=== PATIENT | female | born 1960 | race Caucasian/White ===

== ENCOUNTER 2022-03-20 11:38 | Emergency (ER) | payer BC, SELFPAY ==
[2022-03-20 12:16] VITALS: BP 163/104; PULSE 71; RESP 18; TEMP 37.1; O2SAT 97; BMI 31.9
--- NOTE | 2022-03-20 13:08 | CRLHL7_ITS ---
For Patients: As a result of the Century Cures Act, medical imaging exams and procedure reports are released immediately into your electronic medical record. You may view this report before your referring provider. If you have questions, please contact your health care provider. INDICATION: Headache TECHNIQUE: CT head without contrast. COMPARISON: FINDINGS: CSF spaces: Within normal limits for age. Brain parenchyma: The stack-white differentiation is normal. No sign of mass, hemorrhage, or midline shift. Skull base and calvarium: The visualized paranasal sinuses and mastoid air cells demonstrate no acute or significant findings. The visualized orbits are grossly unremarkable. No skull fractures. IMPRESSION: Unremarkable noncontrast head CT. Dictated by Scotty Marquez MD @ 03/20/2022 2:45:32 PM Please note that all CT scans at this facility use dose modulation, iterative reconstruction, and/or weight-based dosing when appropriate to reduce radiation dose to as low as reasonably achievable. Dictated by: Scotty Marquez MD @ 03/20/2022 14:45:43 (Electronically Signed)
--- NOTE | 2022-03-20 13:17 | ED.GENADULT ---
HPI - General Adult General Chief complaint: Headache/Migraine Stated complaint: Migraine/covid+ 2 weeks ago Time Seen by Provider: 03/20/22 12:35 History of Present Illness HPI narrative: 61-year-old female coming in today complaining of a headache. She states she has had a for just over 2 weeks now. She was diagnosed with COVID on the 05 of March, symptoms started on the 01 of March. She states she has had a headache for that long at least. Nothing seems to make it better. She states that she is sensitive to light and she has to lay in bed in the dark often. She has tried Tylenol, ibuprofen, Advil, Excedrin migraine and nothing helps. She denies any neurologic deficits. No nausea or vomiting. No changes in her vision or hearing. The pain is located on the left posterior head and radiates up and down the entire school also radiates down into her neck. She has never had a headache quite like this before. Does not have a history of migraines. She denies any slurred speech or confusion. No trauma to the head or neck. Temperature has been around 99 at home. Related Data Home Medications Medication Instructions Recorded Confirmed aspirin 81 mg tablet,delayed 81 mg PO tab 03/05/22 03/05/22 release atorvastatin 40 mg tablet 40 mg PO tab 03/05/22 03/05/22 citalopram 20 mg tablet 20 mg PO tab 03/05/22 03/05/22 fluorouracil 5 % topical cream applic TOPICAL 03/05/22 03/05/22 folic acid 1 mg tablet 5 mg PO tab 03/05/22 03/05/22 golimumab 50 mg/0.5 mL mg SUBCUT 03/05/22 03/05/22 subcutaneous pen injector (Simponi) losartan 50 mg tablet 50 mg PO tab 03/05/22 03/05/22 methotrexate sodium 2.5 mg tablet 2.5 mg PO tab 03/05/22 03/05/22 metoprolol tartrate 25 mg tablet 25 mg PO tab 03/05/22 03/05/22 Previous Rx's Medication Instructions Recorded nirmatrelvir 300 mg (150 mg x See Rx Instructions PO .COMPLEX 03/05/22 2)-ritonavir 100 mg tablet (EUA) #30 tab (Paxlovid 300 mg () ketorolac 10 mg tablet 10 mg PO TID PRN 3 Days #9 tab 03/20/22 Allergies Allergy/AdvReac Type Severity Reaction Status Date / Time Sulfa (Sulfonamide Allergy Intermediate Verified 03/20/22 12:15 Antibiotics) bupropion [From Wellbutrin] Allergy Verified 03/20/22 12:16 sertraline [From Zoloft] Allergy Verified 03/20/22 12:16 Review of Systems Status of ROS: Reports: 10 or more systems reviewed and unremarkable except as noted in History and below PFSH PFSH Medical History Hypolipidemia Psoriatic arthritis Social History Smoking Status: Never smoker Exam Narrative: Exam Narrative: Well-nourished well-developed patient in no acute distress. Alert and oriented. Answers questions appropriately. Mood and affect are appropriate. Thoughts are goal oriented and rational. No tangential or magical thinking noted. Patient speaks in full sentences without needing to catch their breath. HEENT: Normocephalic atraumatic. Pupils are equally round reactive to light. Extraocular muscles are intact. Conjunctivae are moist without any icterus noted. Moist mucous membranes. Posterior pharynx is normal. Neck is soft without any lymphadenopathy or thyromegaly. No masses are appreciated. She has no tenderness to palpation over the cervical spine. She has full range of motion of the neck was flexion, extension, side way bending and rotation. She can touch her chin to her chest. Cardiovascular: Heart is regular rate and rhythm S1 and S2 are present without any murmurs. Lungs: Clear to auscultation bilaterally no wheezes rhonchi or rales are appreciated. Patient takes deep breaths without any discomfort. Skin: Well perfused without any obvious rashes. Strength is 5/5 of the upper and lower extremities. Reflexes are 2+ and symmetric at the knees. Cranial nerves 3-12 are normal. There is no nystagmus either horizontally or vertically. Const: Vital Signs, click to edit/add: Vital Signs - 24 hr 03/20/22 12:16 Temperature 98.7 F Pulse Rate [Pulse Oximeter] 71 Respiratory Rate 18 Blood Pressure [Ri ght Forearm] 163/104 H Pulse Oximetry 97 Course Course Hospital Course: IV was started and patient received 0.5 L of normal saline, IV Zofran, Toradol, dexamethasone and Benadryl. We discussed that since she has never had headache like this before we discussed risk benefit of doing a CT scan, patient would really like to get this done today as she is quite concerned about her symptoms. The treatment brought her pain from an 8 to a 4 and she felt significant relief. She was up ambulating independently without any difficulty. Reviewed results of her CT scan which were normal. Vital Signs Vital signs: Initial Vital Signs Temperature 98.7 F 03/20/22 12:16 Temperature Source Temporal Artery Scan 03/20/22 12:16 Pulse Rate 71 03/20/22 12:16 Pulse Rhythm 03/20/22 12:16 Respiratory Rate 18 03/20/22 12:16 Blood Pressure 163/104 H 03/20/22 12:16 Blood Pressure Mean 123 03/20/22 12:16 Pulse Oximetry 97 03/20/22 12:16 Oxygen Delivery Method 03/20/22 12:16 Vital Signs Temperature 98.7 F 03/20/22 12:16 Pulse Rate 71 03/20/22 12:16 Respiratory Rate 18 03/20/22 12:16 Blood Pressure 163/104 H 03/20/22 12:16 Pulse Oximetry 97 03/20/22 12:16 Temperature 98.7 F 03/20/22 12:16 Pulse Rate 71 03/20/22 12:16 Respiratory Rate 18 03/20/22 12:16 Blood Pressure 163/104 H 03/20/22 12:16 Pulse Oximetry 97 03/20/22 12:16 Medical Decision Making MDM Narrative Medical decision making narrative: 61-year-old female with a migraine headache status post COVID-19 infection. At this point we will send her home with some Toradol to use as needed. I would like for to follow up with her primary care provider in the next week if she is not getting better. Patient was agreeable had no other questions Medical Records Medical records reviewed: Yes I reviewed the patient's medical records Imaging Data CT scan - head: Attestation: I have reviewed the pertinent imaging results. Radiologist's impression: FINDINGS: CSF spaces: Within normal limits for age. Brain parenchyma: The stack-white differentiation is normal. No sign of mass, hemorrhage, or midline shift. Skull base and calvarium: The visualized paranasal sinuses and mastoid air cells demonstrate no acute or significant findings. The visualized orbits are grossly unremarkable. No skull fractures. IMPRESSION: Unremarkable noncontrast head CT. Discharge Plan Discharge Clinical Impression: Headache Patient Disposition: Home, Self-Care Condition: Improved Additional Instructions: Stay well hydrated and get plenty of rest. Follow-up with your primary care provider in the next 1-2 weeks if you are not improving. Okay to use Toradol as needed for discomfort, always use with food. Return to the ER if you develop any weakness of your extremities, vomiting or fever. Prescriptions: New ketorolac 10 mg tablet 10 mg PO TID PRN (Reason: pain) 3 Days Qty: 9 0RF No Action aspirin 81 mg tablet,delayed release (DR/EC) 81 mg PO 0RF Label Comments: TAKE ONE TABLET BY MOUTH DAILY losartan 50 mg tablet 50 mg PO 0RF Label Comments: take 1 tablet by mouth daily methotrexate sodium 2.5 mg tablet 2.5 mg PO 0RF Label Comments: TAKE 8 TABLETS BY MOUTH ONCE A WEEK Simponi 50 mg/0.5 mL pen injector subcut 0RF folic acid 1 mg tablet 5 mg PO 0RF Label Comments: TAKE 1 TABLET BY MOUTH DAILY citalopram 20 mg tablet 20 mg PO 0RF Label Comments: TAKE ONE TABLET BY MOUTH DAILY metoprolol tartrate 25 mg tablet 25 mg PO 0RF Label Comments: Take 0.5 tablets (12.5 mg) by mouth 2 times daily atorvastatin 40 mg tablet 40 mg PO 0RF Label Comments: TAKE ONE TABLET BY MOUTH DAILY fluorouracil 5 % cream topical 0RF Label Comments: Apply to the affected areas above the lip once daily for 3 weeks Paxlovid (EUA) 150 mg x 2- 100 mg tablet See Rx Instructions PO .COMPLEX Qty: 30 0RF Rx Instructions: take TWO 150 mg tablets of nirmatrelvir with ONE 100 mg tablet of ritonavir twice daily for 5 days PO Follow Up/Referrals: Yamila Dave PA-C [Primary Care Provider] - Stand Alone Forms: [employer] Info Instructions
[2022-03-20] MEDS: ONDANSETRON 2 MG/ML inj 4 MG IVP (14:16)
[2022-03-20] MEDS: KETOROLAC 30 MG/ML inj IVP (14:16)
[2022-03-20] MEDS: dexAMETHasone 4 MG/ML VIAL IV (14:17)
[2022-03-20] MEDS: 0.9 % SODIUM CHLORIDE 500 ML 500 ML IV (14:17)
[2022-03-20] MEDS: diphenhydrAMINE 50 MG/ML inj 25 MG IVP (14:17)
== END 2022-03-20 15:57 | disposition home or self-care (01) ==
PROVIDERS: Emergency Provider Family Medicine; PCP Physician Assistant Medical
DX: R51.9 Headache, unspecified (principal)
CPT/HCPCS: 70450; 96374; 96375; 99284; J1100; J1200; J1885; J2405; J7120

== ENCOUNTER 2022-04-19 14:32 | Outpatient (CLI) | payer BC, SELFPAY ==
[2022-04-19 21:19] LABS: Albumin* 4.3 g/dL (3.3-5.0)
[2022-04-19 21:21] LABS: Aspartate Amino Transferase* 31 U/L (12-35); Bilirubin Direct* 0.1 mg/dL (0.0-0.5); Bilirubin Total* 0.3 mg/dL (0.1-1.5); Total Protein* 6.4 g/dL (6.0-8.3)
[2022-04-19 21:22] LABS: Alanine Aminotransferase* 35 U/L (4-35); Alkaline Phosphatase* 78 U/L (40-150)
[2022-04-19 21:28] LABS: Creatine Kinase* < 20 U/L (41-117)
== END 2022-04-19 14:33 | disposition home or self-care (01) ==
PROVIDERS: PCP Physician Assistant Medical; Visit Provider Physician Assistant Medical
DX: R53.83 Other fatigue (principal); R00.0 Tachycardia, unspecified
CPT/HCPCS: 80076; 82550

== ENCOUNTER 2022-06-15 08:45 | Outpatient (CLI) | payer BC, SELFPAY ==
--- OUTSIDE RECORDS SUMMARY | 2022-06-15 08:53 | XMS_ITS | Encounter Summary ---
:1960 Author Organization [place] Address [address] [facility] [place] [address] Care Team Providers Name Role Phone Yamila Dave PA-C Primary Care Provider Rahul oFrd MD Unavailable [phone] Encounter Details Date Type Department Care Team Description 03/14/2022 Travel Social History Tobacco Use Types Packs/Day Years Used Date Smoking Tobacco: Never Smokeless Tobacco: Never Alcohol Use Standard Drinks/Week Comments Yes 0 (1 standard drink = 0.6 oz pure alcoho l) rare occasion Sex Assigned at Date Recorded Female 04/22/2020 2:54 PM CDT COVID-19 Exposure Response Date Recorded In the last 10 days, have you been in contact with No / Unsu re 03/14/2022 10:53 AM CDT someone who was confirmed or suspected to have Coronavirus/COVID-19? documented as of this encounter Plan of Treatment Not on filedocumented as of this encounter Visit Diagnoses Not on filedocumented in this encounter Care Teams Tourist Guide Relationship Specialty Start Date End Date Yamila Dave, PCP - General Physician Propellant Assembler 04/14/20 [facility] [address] [place] [address] Rahul Ford Assigned Heart and 01/23/21 MD [facility] Vascular Provider [facility] [address] [facility] [place] [address] documented as of this encounter
--- OUTSIDE RECORDS SUMMARY | 2022-06-15 08:53 | XMS_ITS | Encounter Summary ---
:1960 Author Organization [place] Address [address] [facility] [place] [address] Care Team Providers Name Role Phone Yamila Dave PA-C Primary Care Provider Rahul Ford MD Unavailable [phone] Reason for Visit Reason Onset Date Comments Refill Request 03/21/2021 Metoprolol, Atorvast atin Encounter Details Date Type Department Care Team Description 03/21/2021 Refill [facility] Liyah Ford Refill Request Clinic Val Daigle MD (Metoprolol, [address] [facility] E Atorvastatin) [facility] [address] [facility] [place] [address] [place] [address] (Wo rk) Social History Tobacco Use Types Packs/Day Years Used Date Smoking Tobacco: Never Smokeless Tobacco: Never Alcohol Use Standard Drinks/Week Comments Yes 0 (1 standard drink = 0.6 oz pure alcoho l) rare occasion Sex Assigned at Date Recorded Female 04/22/2020 2:54 PM CDT documented as of this encounter Plan of Treatment Not on filedocumented as of this encounter Visit Diagnoses Diagnosis Coronary artery disease involving [place] coronary artery of [place] heart without angina pectoris - Primary Palpitations documented in this encounter Care Teams Beam Doffer Relationship Specialty Start Date End Date Yamila Dave, PCP - General Physician Cooking Show Host 04/14/20 [facility] [address] [place] [address] Rahul Ford Assigned Heart and 01/23/21 MD Pilo Vascular Provider [facility] [address] [id number] documented as of this encounter
--- OUTSIDE RECORDS SUMMARY | 2022-06-15 08:53 | XMS_ITS | Encounter Summary ---
:1960 Author Organization [place] Address [address] [place] [address] Care Team Providers Name Role Phone Yamila Dave PA-C Primary Care Provider Rahul Ford MD Unavailable [phone] Encounter Details Date Type Department Care Team Description 02/22/2022 Travel Social History Tobacco Use Types Packs/Day [...] in contact with No / Unsu re 02/22/2022 10:13 AM CDT someone who was confirmed or suspected to have Coronavirus/COVID-19? documented as of this encounter Plan of Treatment Not on filedocumented as of this encounter Visit Diagnoses Not on filedocumented in this encounter Care Teams Content Management Specialist Relationship Specialty Start Date End Date Yamila Dave, PCP - General Physician Speech Language Pathologist Travel 04/14/20 [facility] [address] [place] [address] Rahul Ford Assigned Heart and 01/23/21 MD Pilo Vascular Provider [facility] [address] [facility] [place] [address] documented as of this encounter
--- OUTSIDE RECORDS SUMMARY | 2022-06-15 08:53 | XMS_ITS | Encounter Summary ---
:1960 Author Organization [place] Address [address] [facility] [place] [address] Care Team Providers Name Role Phone Yamila Dave PA-C Primary Care Provider [phone] Rahul Ford MD Unavailable [phone] Reason for Visit Reason Onset Date Comments Refill Request 03/21/2021 Aspirin Encounter Details Date Type Department Care Team Description 03/21/2021 Refill [facility] Liyah Ford Refill Request (Aspirin Clinic Yesi Daigle MD ) [address] [facility] [place] [address] [address] [place] [id number] (Wo rk) Social History Tobacco Use Types [...] Visit Diagnoses Diagnosis Coronary artery disease involving [place] de[place]-ni' coronary artery of [place] de[place]-ni' heart without angina pectoris - Primary documented in this encounter Care Teams Protective Signal Superintendent Relationship Specialty Start Date End Date Yamila Dave, PCP - General Physician Trim Mounter 04/14/20 [facility] [address] [place] [address] Rahul Ford Assigned Heart and 01/23/21 MD Pilo Vascular Provider [facility] [address] [id number] documented as of this encounter
--- OUTSIDE RECORDS SUMMARY | 2022-06-15 08:53 | XMS_ITS | Encounter Summary ---
:1960 Author Organization [place] Address [address] [facility] [place] [address] Care Team Providers Name Role Phone Yamila Dave PA-C Primary Care Provider Alo Steel PA-C Unavailable Encounter Details Date Type Department Care Team Description 01/12/2021 Travel Social History Tobacco Use Types Packs/Day Years Used Date Smoking Tobacco: Never Smokeless Tobacco: Never Alcohol Use Standard Drinks/Week Comments Yes 0 (1 standard drink = 0.6 oz pure alcoho l) rare occasion Sex Assigned at Date Recorded Female 04/22/2020 2:54 PM CDT COVID-19 Exposure Response Date Recorded In the last month, have you been in contact with No / Unsure 01/12/2021 2:41 PM CDT someone who was confirmed or suspected to have Coronavirus / COVID-19? documented as of this encounter Plan of Treatment Not on filedocumented as of this encounter Visit Diagnoses Not on filedocumented in this encounter Care Teams Logistics Assistant Relationship Specialty Start Date End Date Yamila Dave PCP - General Physician Drain Cleaner 04/14/20 [facility] [address] [place] [address] Alo Steel, Assigned Heart and 11/17/20 [facility] Vascular Provider [address] [place], [place] [address] documented as of this encounter
--- OUTSIDE RECORDS SUMMARY | 2022-06-15 08:53 | XMS_ITS | Encounter Summary ---
:1960 Author Organization [place] Address [address] [facility] [place] [address] Care Team Providers Name Role Phone Yamila Dave PA-C Primary Care Provider Rahul Ford MD Unavailable [phone] Reason for Visit Reason Onset Date Comments Refill Request 07/27/2021 losartan Encounter Details Date Type Department Care Team Description 07/27/2021 Refill [facility] Jyoti Umanzor R N Refill Request (losartan) [address] [place] [address] Social History Tobacco Use Types Packs/Day Years Used Date Smoking Tobacco: Never Smokeless Tobacco: Never Alcohol Use Standard Drinks/Week Comments Yes 0 (1 standard drink = 0.6 oz pure alcoho l) rare occasion Sex Assigned at Date Recorded Female 04/22/2020 2:54 PM CDT documented as of this encounter Plan of Treatment Not on filedocumented as of this encounter Visit Diagnoses Diagnosis Essential hypertension Unspecified essential hypertension documented in this encounter Care Teams Charter Bus Driver Relationship Specialty Start Date End Date Yamila Dave, PCP - General Physician Yield Engineer 04/14/20 [facility] [address] [place] [address] Rahul Ford Assigned Heart and 01/23/21 MD Pilo Vascular Provider [facility] [address] [facility] [place], [place] [address] documented as of this encounter
--- OUTSIDE RECORDS SUMMARY | 2022-06-15 08:53 | XMS_ITS | Encounter Summary ---
:1960 Author Organization [place] Address [address] [place] [address]. [place] [address] Care Team Providers Name Role Phone Yamila Dave PA-C Primary Care Provider [phone] Rahul Ford MD Unavailable [phone] Encounter Details Date Type Department Care Team Description 02/22/2022 [facility] Heart [facility]ise nary artery disease [facility] [place] involving [place] coronary [address] [facility] [address] rtery of [place] heart without 140 [place] [address] Social History Tobacco Use Types Packs/Day Years [...] Not on filedocumented as of this encounter Procedures Procedure Name Priority Date/Time Associated Diagnosis Comme nts HEMOGLOBIN A1C Routine 02/22/2022 11:11 AM Coronary artery Res ults for this CDT disease involving procedure are in the [place] coronary results sect ion. artery of [place] heart without angina pectoris documented in this encounter Results Hemoglobin A1c (02/22/2022 11:11 AM CDT) P athologist Signature Hemoglobin A1C 5.1 0.0 - 5.6 02/22/2022 [facility] % 11:45 AM CDT Comment: Normal <5.7% Prediabetes 5.7-6.4% ?? Diabetes 6.5% or higher Note: Adopted from ADA consensus guideli rodrigue. Specimen Anatomical Collection Method / Collection Time Recei tayla Time (Source) Location / Volume Laterality Blood STRUCTURE OF RIGHT Venipuncture / 02/22/2022 11:11 UPPER LIMB / Unknown AM CDT 11:13 AM CDT Unknown Rahul Ford MD LAB - BLOOD ORDERABLES Performing Organization Address City/State/ZIP Code Phon e Number [place] [address] Care [address] Lab (1st floor, no room number) documented in this encounter Visit Diagnoses Diagnosis Coronary artery disease involving [place] coronary artery of [place] heart without angina pectoris documented in this encounter Care Teams Director Of Assessing Relationship Specialty Start Date End Date Yamila Dave, PCP - General Physician Sizer Hand 04/14/20 [facility] [address] [place] [address] Rahul Ford Assigned Heart and 01/23/21 MD Pilo Vascular Provider [facility] [address] [place] [address] documented as of this encounter
--- OUTSIDE RECORDS SUMMARY | 2022-06-15 08:53 | XMS_ITS | Encounter Summary ---
:1960 Author Organization [place] Address [address] [facility] [place] [address] Care Team Providers Name Role Phone Yamila Dave PA-C Primary Care Provider [phone] Rahul Ford MD Unavailable [phone] Reason for Visit (Routine) - Closed Specialty Diagnoses / Procedures Referred By Contact Refer red To Contact Cardiology Diagnoses SHANIQUE order, Pt to hold Metoprolol,Chest pain, unspecified type [R07.9], emailed instructions to pt, CER 03/13 [facility] Procedures ECHO STRESS TEST [address] [place], [place] [address] Phone: Referral ID Status Reason Start Date Expiration Date Visits Requ ested Visits Authorized [id number] Closed 03/17/2022 03/13/2023 1 1 Encounter Details Date Type Department Care Team Description 03/28/2022 Hospital Encounter [facility] Care [facility] [address] [place], [place] [address] [address] [place] [address] [place] [address] [place], [place] [address] (Wo rk) Social History Tobacco Use Types [...] in contact with No / Unsu re 03/28/2022 9:58 AM CDT someone who was confirmed or suspected to have Coronavirus/COVID-19? documented as of this encounter Medications at Time of Discharge Medication Sig Dispensed Refills Start Date End Date citalopram (CELEXA) 20 Take 20 mg by mouth 0 01/2020 MG tablet daily Doxylamine Succinate, Take by mouth as 0 Sleep, (SLEEP AID PO) needed folic acid (FOLVITE) 1 Take 1 mg by mouth 0 12/20 MG tablet daily golimumab (SIMPONI) 50 Simponi 50 mg/0.5 mL 0 MG/0.5ML auto-injector subcutaneous pen pen injector ketorolac (TORADOL) 10 Take 1 tablet (10 mg) 10 tablet 0 MG tablet by mouth every 6 hours as needed for pain Take as sparingly as possible. Avoid taking any other NSAIDS while using this medication. losartan (COZAAR) 50 MG Take 1 tablet (50 mg) 90 tablet 3 0 02/22/2022 tabletIndications: by mouth daily Benign essential hypertension methotrexate 2.5 MG 15 mg every 7 days 0 01/09/20 20 tablet Multiple Vitamin Take by mouth daily 0 (MULTI-VITAMINS) TABS omeprazole (PRILOSEC) omeprazole 20 mg [address] capsule capsule,delayed release Vitamin D3 Take 2,000 Units by 0 (CHOLECALCIFEROL) 25 mouth mcg (1000 units) tablet ASPIRIN LOW DOSE 81 MG Take 1 tablet (81 mg) 90 tablet 3 04/07/2022 EC tabletIndications: by mouth daily Coronary artery disease involving [place] coronary artery of [place] heart without angina pectoris atorvastatin (LIPITOR) Take 1 tablet (40 mg) 90 tablet 3 04/06/2022 40 MG by mouth daily tabletIndications: Coronary artery disease involving [place] coronary artery of [place] heart without angina pectoris, Palpitations metoprolol tartrate Take 0.5 tablets (12.5 90 tablet 3 03/0304/07/2022 (LOPRESSOR) 25 MG mg) by mouth 2 times tabletIndications: daily Coronary artery disease involving [place] coronary artery of [place] heart without angina pectoris, Palpitations documented as of this encounter Plan of Treatment Not on filedocumented as of this encounter Procedures Procedure Name Priority Date/Time Associated Diagnosis Comme nts ECHO EXERCISE SHANIQUE 03/28/2022 10:55 AM Chest pain, Results for this STRESS TEST WITH CDT unspecified type procedu re are in CONTRAST the results section. documented in this encounter Visit Diagnoses Not on filedocumented in this encounter Administered Medications Inactive Administered Medications - up to 3 most recent administrations Medication Order MAR Action Action Date Dose Rate Site perflutren diluted 1mL to 2mL with Given 03/28/2022 10:56 AM CDT 3 mLs saline (OPTISON) diluted injection 3 mL 3 mL, Intravenous, ONCE, On Sun03/28/22 at 1100, For 1 dose, [facility] [place] [id number] sodium chloride (PF) 0.9% PF flush 10 mL Given 03/28/2022 10:56 AM CDT 10 mLs 10 mL, Intracatheter, ONCE, On Sun03/28/22 at 1100, For 1 dose documented in this encounter Care Teams Talk Show Host Relationship Specialty Start Date End Date Yamila Dave, PCP - General Physician Ultrasound Technol 04/14/20 [facility] [address] [place] [address] Rahul Ford Assigned Heart and 01/23/21 MD Pilo Vascular Provider [facility]ARE [address] [place] [address] documented as of this encounter
--- OUTSIDE RECORDS SUMMARY | 2022-06-15 08:53 | XMS_ITS | Encounter Summary ---
:1960 Author Organization [place] Address [address] [place] [address] Care Team Providers Name Role Phone Yamila Dave PA-C Primary Care Provider [phone] Rahul Ford MD Unavailable [phone] Encounter Details Date Type Department Care Team Description 02/22/2022 Lab [facility] Heart Liyah Ford Coronary artery disease Clinic Lee Daigle MD involving [place] [address] [facility] HEART C ARE coronary artery of [address] [facility] [place] [address] angina pectoris [address] [phone] Social History Tobacco Use Types Packs/Day Years [...] Name Priority Date/Time Associated Diagnosis Comme nts LIPID PROFILE Routine 02/22/2022 10:21 AM Coronary artery Resu lts for this CDT disease involving procedure are in [place] coronary the results artery of [place] section. heart without angina pectoris BASIC METABOLIC Routine 02/22/2022 10:21 AM Coronary artery Re sults for this PANEL CDT disease involving procedure are in [place] coronary the results artery of [place] section. heart without angina pectoris documented in this encounter Results Lipid Profile (02/22/2022 10:21 AM CDT) [facility] Method Time Signature Cholesterol 163 <200 mg/dL 02/22/2022 [facility] 10:51 AM CDT Triglycerides 110 <150 mg/dL 02/22/2022 [facility] 10:51 AM CDT Direct Measure HDL 76 >=50 mg/dL 02/22/2022 [facility] 10:51 AM CDT LDL Cholesterol 65 <=100 02/22/2022 [facility] Calculated mg/dL 10:51 AM CDT Non HDL 87 <130 mg/dL 02/22/2022 [facility] Cholesterol 10:51 AM CDT Patient Fasting > Yes 02/22/2022 [facility] RY 8hrs? 10:51 AM CDT Specimen Anatomical Collection Method / Collection Time Recei tayla Time (Source) Location / Volume Laterality Blood STRUCTURE OF LEFT Venipuncture / 02/22/2022 10:21 2 10/2021 UPPER LIMB / Unknown AM CDT 10:23 AM CDT Unknown Narrative [facility] - 02/22/2022 10:51 AM CDT Cholesterol Desirable: ??<200 mg/dL Triglycerides Normal: ??Less than 150 mg/dL Borderline High: ??150-199 mg/dL High: ??200-499 mg/dL Very High: ??Greater than or equal to 50 0 mg/dL Direct Measure HDL Female: ??Greater than or equal to 50 mg /dL Male: ??Greater than or equal to 40 mg/d L LDL Cholesterol Desirable: ??<100mg/dL Above Desirable: ??100-129 mg/dL Borderline High: ??130-159 mg/dL High: ??160-189 mg/dL Very High: ??>= 190 mg/dL Non HDL Cholesterol Desirable: ??130 mg/dL Above Desirable: ??130-159 mg/dL Borderline High: ??160-189 mg/dL High: ??190-219 mg/dL Very High: ??Greater than or equal to 22 0 mg/dL Rahul Ford MD LAB - BLOOD ORDERABLES Performing Organization Address City/State/ZIP Code [place] [phone] Care Lab [address] Lab (1st floor, no room number) (ABNORMAL) Basic metabolic panel (02/22/2022 10:21 AM CDT) Analysis Performed At Patho logist Time Signature Sodium 140 133 - 144 02/22/2022 LABORATORY mmol/L 10:48 AM CDT Potassium 3.9 3.4 - 5.3 02/22/2022 LAB[facility]ATORY mmol/L 10:48 AM CDT Chloride 106 94 - 109 02/22/2022 LABORATORY mmol/L 10:48 AM CDT Carbon Dioxide 28 20 - 32 02/22/2022 LABORATORY (CO2) mmol/L 10:48 AM CDT Anion Gap 6 3 - 14 02/22/2022 LAB[facility]ATORY mmol/L 10:48 AM CDT Urea Nitrogen 17 7 - 30 02/22/2022 LAB[facility]ATORY mg/dL 10:48 AM CDT Creatinine 0.59 0.52 - 02/22/2022 LABORATORY 1.04 mg/dL 10:48 AM CDT Calcium 9.3 8.5 - 10.1 02/22/2022 LABORATORY mg/dL 10:48 AM CDT Glucose 122 (H) 70 - 99 02/22/2022 LABORATORY mg/dL 10:48 AM CDT GFR Estimate >90 >60 02/22/2022 LAB[facility]ATORY mL/min/1.7 10:48 AM CDT 3m2 Comment: Effective August 23, 2021 eGF Rcr in adults is calculated using the 2020 CKD-EPI creatinine equation which includ es age and gender (Roberto et al., NEJM, DOI: 10.1056/QCRIny0327360) Specimen Anatomical Collection Method / Collection Time Recei tayla Time (Source) Location / Volume Laterality Blood STRUCTURE OF LEFT Venipuncture / 02/22/2022 10:21 06/2 10/2021 UPPER LIMB / Unknown AM CDT 10:23 AM CDT Unknown Rahul Ford MD LAB - BLOOD ORDERABLES Performing Organization Address City/[facility]/ZIP Code [place] [address] Care Lab [address] Lab (1st floor, no room number) documented in this encounter Visit Diagnoses Diagnosis Coronary artery disease involving [place] coronary artery of [place] heart without angina pectoris documented in this encounter Care Teams Hedge Fund Principal Relationship Specialty Start Date End Date Yamila Dave, PCP - General Physician Locum Tenens Psychiatrist 04/14/20 PA-C [facility] [address] [place] [address] Rahul Ford Assigned Heart and 01/23/21 MD [facility] Vascular Provider [facility] HEART CARE [address] [address] documented as of this encounter
--- OUTSIDE RECORDS SUMMARY | 2022-06-15 08:53 | XMS_ITS | Encounter Summary ---
:1960 Author Organization [place] Address [address] [place] [address] Care Team Providers Name Role Phone Yamila Dave PA-C Primary Care Provider Rahul Ford MD Unavailable [phone] Reason for Referral Consultation (Routine: Next available opening) - Pending Review Specialty Diagnoses / Procedures Referred By Contact Refer red To Contact Cardiovascular Disease Diagnoses Coronary artery disease involving [place] coronary artery of [place] heart without angina pectoris Rahul Ford MD [facility] HEART CARE [address] [place] [address] Referral ID Status Reason Start Date Expiration Date Visits V isits Requested Authorized [id number] Pending 02/22/2022 02/22/2023 1 1 Review Reason for Visit Reason Comments Annual Visit Annual follow up for CAD, HT N Encounter Details Date Type Department Care Team Description 02/22/2022 Office Visit Rahul Lim e ssential hypertension (Primary Dx); [facility] MD [place] Dyslipidemia; [facility] CARE Coronary artery disease involving [place] coronary artery of [place] heart without angina pectoris [address] [facility] [address] [place] [address] [place], [place] [phone] [address] (Work) [phone] Social History Tobacco Use Types Packs/Day Years [...] have Coronavirus/COVID-19? documented as of this encounter Last Filed Vital Signs Vital Sign Reading Time Taken Comments Blood Pressure 130/88 02/22/2022 10:41 AM CDT Pulse 72 02/22/2022 10:41 AM CDT Temperature - - Respiratory Rate - - Oxygen Saturation 96% 02/22/2022 10:41 AM CDT Inhaled Oxygen Concentration - - Weight 85 kg (187 lb 8 oz) 02/22/2022 10:41 AM CDT Height 162.6 cm (5' 4) 02/22/2022 10:41 AM CDT Body Mass Index 32.18 02/22/2022 10:41 AM CDT documented in this encounter Patient Instructions Patient InstructionsWillRahul neumann MD - 02/22/2022 10:45 AM CDT Increase losartan to 50mg once daily. Keep other medications the same. documented in this encounter Progress Notes Rahul Ford MD - 02/22/2022 10:45 AM CDT CARDIOLOGY VISIT REASON FOR VISIT: CAD SUBJECTIVE: 61-year-old female seen for follow-up of coronary artery disease. She has hypertension, dyslipidemia, and psoriatic arthritis on methotrexate. 2019 she was admitted to [facility] in [place], [place] with non-STEMI. Echo showed EF 55% with no wall motion abnormality and no valve disease. Angiogram showed severe stenosis of a small OM3 branch, mild disease elsewhere, this was treated medically. Nuclear stress September 2020 showed small infarct of the distal anterior and apical segment, EF 70%. 30-day event monitor October 2020 showed sinus rhythm, no arrhythmias. Overall she has been doing well. She will go walking for 20 minutes with no shortness of breath or chest pain. Blood pressure runs 130/80 on average, pulse in the mid 50s. MEDICATIONS: Current Outpatient Medications Medication ??? ASPIRIN LOW DOSE 81 MG EC tablet ??? atorvastatin (LIPITOR) 40 MG tablet ??? citalopram (CELEXA) 20 MG tablet ??? clopidogrel (PLAVIX) 75 MG tablet ??? Digestive Enzymes (DIGESTIVE ENZYME PO) ??? Doxylamine Succinate, Sleep, (SLEEP AID PO) ??? ENBREL SURECLICK 50 MG/ML autoinjector ??? famotidine (PEPCID) 40 MG tablet ??? folic acid (FOLVITE) 1 MG tablet ??? golimumab (SIMPONI) 50 MG/0.5ML auto-injector pen ??? ketorolac (TORADOL) 10 MG tablet ??? lactobacillus rhamnosus, GG, (CULTURELL) capsule ??? losartan (COZAAR) 25 MG tablet ??? methotrexate 2.5 MG tablet ??? metoprolol tartrate (LOPRESSOR) 25 MG tablet ??? Multiple Vitamin (MULTI-VITAMINS) TABS ??? ondansetron (ZOFRAN ODT) 4 MG ODT tab ??? TURMERIC CURCUMIN PO ??? Vitamin D3 (VITAMIN D3) 25 mcg (1000 units) tablet No current facility-administered medications for this visit. ALLERGIES: Allergies Allergen Reactions ??? Sulfa Drugs Rash REVIEW OF SYSTEMS: Constitutional: No weight loss, fever, chills HEENT: Eyes: No visual loss, blurred vision, double vision or yellow sclerae. No hearing loss, sneezing, congestion, runny nose or sore throat. Skin: No rash or itching. Cardiovascular: per HPI Respiratory: per HPI GI: No anorexia, nausea, vomiting or diarrhea. No abdominal pain or blood. : No dysurea, hematuria Neurologic: No headache, paralysis, ataxia, numbness or tingling in the extremities. No change in bowel or bladder control. Musculoskeletal: No muscle pain Hematologic: No bleeding or bruising. Lymphatics: No enlarged nodes. No history of splenectomy. Endocrine: No reports of sweating, cold or heat intolerance. No polyuria or polydipsia. Allergies: No history of asthma, hives, eczema or rhinitis. PHYSICAL EXAM: BP 130/88 (BP Location: Right arm, Patient Position: Sitting, Cuff Size: Adult Large) Pulse 72 Ht 1.626 m (5' 4) Wt 85 kg (187 lb 8 oz) LMP (LMP Unknown) SpO2 96% No BMI 32.18 kg/m?? Constitutional: awake, alert, no distress Eyes: PERRL, sclera nonicteric ENT: trachea midline Respiratory: Lungs clear Cardiac: Regular rate and rhythm, no murmurs GI: nondistended, nontender, bowel sounds present Lymph/Hematologic: no lymphadenopathy Skin: dry, no rash Musculoskeletal: good muscle tone, strength 5/5 in upper and lower extremities Neurologic: no focal deficits Neuropsychiatric: appropriate affact DATA: Lab: February 22: Potassium 3.9, creatinine 0.6, A1c 5.1 Recent Labs Lab Test 02/22/22 1021 08/11/20 0000 04/03/20 0000 CHOL 163 150 232* HDL 76 -- 62 LDL 65 -- 145 TRIG 110 131 161* ASSESSMENT: 61-year-old female seen for CAD. She is doing well with no concerning symptoms. Lipids are at goal. Blood pressure is borderline at goal, losartan will be increased. RECOMMENDATIONS: 1. CAD -Continue medical therapy 2. Hypertension -Increase losartan to 50 mg daily Follow-up in 1 year with CON, check BMP and lipids. Rahul Ford MD Cardiology - [facility] Heart Pager: [phone] Text Page February 22, 2022 documented in this encounter Plan of Treatment Scheduled Orders Name Type Priority Associated Diagnoses Order S chedule Lipid Profile Lab Routine Dyslipidemia Expected: 02/02 (Approximate), Expires: 2022 Basic metabolic panel Lab Routine Benign essential Ex pected: 02/22/2023 hypertension (Approximate), Expires: 2022 Scheduled Referrals Name Type Priority Associated Diagnoses Order S chedule Follow-Up with Referral Routine: Next Coronary artery Expected: Cardiology CON available opening disease involving [place] coronary (Approximate ), artery of [place] Expires: heart without angina 023 pectoris documented as of this encounter Results Hemoglobin A1c (02/22/2022 11:11 [...] City/State/ZIP Code Phon e Number [place] [address] Care Lab [address] Lab (1st floor, no room number) documented in this encounter Visit Diagnoses Diagnosis Benign essential hypertension - Primary Essential hypertension, benign Dyslipidemia Other and unspecified hyperlipidemia Coronary artery disease involving [place] coronary artery of [place] heart without angina pectoris documented in this encounter Care Teams Automatic Glove Turner And Former Relationship Specialty Start Date End Date Yamila Dave, PCP - General Physician School Transportation Supervisor 04/14/20 PA-C [facility] [address] [place] [address] Rahul Ford Assigned Heart and 01/23/21 MD [facility] Vascular Provider [facility] HEART CARE [address] [place] [address] documented as of this encounter
--- OUTSIDE RECORDS SUMMARY | 2022-06-15 08:53 | XMS_ITS | Encounter Summary ---
:1960 Author Organization [place] Address [address] [place] [address] Care Team Providers Name Role Phone Yamila Dave PA-C Primary Care Provider Rahul Ford MD Unavailable Encounter Details Date Type Department Care Team Description 03/12/2022 Travel Social History Tobacco Use Types Packs/Day [...] in contact with No / Unsu re 03/12/2022 1:52 PM CDT someone who was confirmed or suspected to have Coronavirus/COVID-19? documented as of this encounter Plan of Treatment Not on filedocumented as of this encounter Visit Diagnoses Not on filedocumented in this encounter Care Teams Field Service Supervisor Relationship Specialty Start Date End Date Yamila Dave, PCP - General Physician Factory Helper 04/14/20 [facility] [address] [place] [address] Rahul Ford Assigned Heart and 01/23/21 MD [facility] Vascular Provider [facility] HEART CARE [address] [facility] [place] [address] documented as of this encounter
--- OUTSIDE RECORDS SUMMARY | 2022-06-15 08:53 | XMS_ITS | Encounter Summary ---
:1960 Author Organization [place] Address [address] [place] [address] Care Team Providers Name Role Phone Yamila Dave PA-C Primary Care Provider [phone] Rahul Ford MD Unavailable [phone] Encounter Details Date Type Department Care Team Description 04/06/2022 Orders Only [facility] Marielos Baez y artery disease involving [place] coronary artery of [place] heart without angina pectoris; Heart Clinic Yesi Hernandez RN Palpitations [address] [facility] [address] [place] [address] Social History Tobacco Use Types Packs/Day Years [...] have Coronavirus/COVID-19? documented as of this encounter Progress Notes Marielos Baez RN - 04/06/2022 12:10 PM CDT [facility] Cardiology Refill Guideline reviewed. Medication meets criteria for refill. Aaron Baez RN documented in this encounter Plan of Treatment Not on filedocumented as of this encounter Visit Diagnoses Diagnosis Coronary artery disease involving [place] coronary artery of [place] heart without angina pectoris Palpitations documented in this encounter Care Teams Structural Designer Relationship Specialty Start Date End Date Yamila Dave, PCP - General Physician Supervisor Compressed Yeast 04/14/20 [facility] [address] [place] [address] Rahul Ford Assigned Heart and 01/23/21 MD [place] Vascular Provider [facility] HEART CARE [address] [place] [address] documented as of this encounter
--- OUTSIDE RECORDS SUMMARY | 2022-06-15 08:53 | XMS_ITS | Encounter Summary ---
:1960 Author Organization [place] Address [address] [facility] [place] [address] Care Team Providers Name Role Phone Yamila Dave PA-C Primary Care Provider [phone] Rahul Ford MD Unavailable [phone] Encounter Details Date Type Department Care Team Description 03/28/2022 Travel Social History Tobacco Use Types Packs/Day [...] on filedocumented in this encounter Care Teams Fondant Cooker Relationship Specialty Start Date End Date Yamila Dave, PCP - General Physician Medical Receptionist Biller 04/14/20 [facility] [address] [place] [address] Rahul Ford Assigned Heart and 01/23/21 MD [place] Vascular Provider [facility] HEART CARE [address] [facility] [place] [address] documented as of this encounter
--- OUTSIDE RECORDS SUMMARY | 2022-06-15 08:53 | XMS_ITS | Encounter Summary ---
:1960 Author Organization [place] Address [address] [place] [address]. [place] [address] Care Team Providers Name Role Phone Yamila Dave PA-C Primary Care Provider [phone] Rahul Ford MD Unavailable [phone] Reason for Visit Reason Onset Date Comments Refill Request 04/07/2022 ASA, Metoprolol Encounter Details Date Type Department Care Team Description 04/07/2022 Refill [facility] Kim Keyes, Refill Request (ASA, Health Heart RN Metoprolol) [facility]-[address] [address] Social History Tobacco Use Types Packs/Day [...] have Coronavirus/COVID-19? documented as of this encounter Miscellaneous Notes Telephone Encounter - Kim Keyes RN - 04/07/2022 2:25 PM CDT Received refill request for: ASA, Metoprolol Last OV was: 02/22/22 Dr. Ford Labs/EKG: N/a F/U scheduled: Orders for 02/2023 Pharmacy: [facility] Cardiology Refill Guideline reviewed. Medication meets criteria for refill. Kim Keyes RN, BSN 04/07/22 at 2:25 PM documented in this encounter Plan of Treatment Not on filedocumented as of this encounter Visit Diagnoses Diagnosis Coronary artery disease involving [place] coronary artery of [place] heart without angina pectoris Palpitations documented in this encounter Care Teams Detasseler Relationship Specialty Start Date End Date Yamila Dave, PCP - General Physician Slip Dumper 04/14/20 [facility] [address] [place] [address] Rahul Ford Assigned Heart and 01/23/21 MD [place] Vascular Provider [facility] HEART CARE [address] [place] [address] documented as of this encounter
--- OUTSIDE RECORDS SUMMARY | 2022-06-15 08:53 | XMS_ITS | Encounter Summary ---
:1960 Author Organization [place] Address [address] [place] [address] Care Team Providers Name Role Phone Yamila Dave PA-C Primary Care Provider [phone] Rahul Ford MD Unavailable [phone] Reason for Visit Reason Onset Date Comments Clinic Care Coordination - Follow-up 04/20/2022 Encounter Details Date Type Department Care Team Description 04/20/2022 Telephone [facility] Andreea Alonzo RN Clinic Care [facility] Heart - Follow-up Care-[address] [place] [address] Social History Tobacco Use Types [...] this encounter Miscellaneous Notes Telephone Encounter - Andreea Alonzo RN - 04/20/2022 1:15 PM CDT Patient called to update us that she saw her PCP 04/19 and that they had increased her Losartan to 100 mg due to a rapid heart rate. PCP also wanted to increase her Metoprolol but wanted to get approvalfrom Dr. Ford first. Reached out to PCP to have progress note faxed over for review before giving approval. Awaiting fax from PCP. Andreea Brambila RN 04/20/22 at 1:19 PM documented in this encounter Plan of Treatment Not on filedocumented as of this encounter Visit Diagnoses Not on filedocumented in this encounter Care Teams Scientific Informatics Leader Relationship Specialty Start Date End Date Yamila Dave, PCP - General Physician Customer Service Cashier 04/14/20 [facility] [address] [place] [address] Rahul Ford Assigned Heart and 01/23/21 MD [place] Vascular Provider [facility] HEART CARE [address] [place] [address] documented as of this encounter
--- OUTSIDE RECORDS SUMMARY | 2022-06-15 08:53 | XMS_ITS | Encounter Summary ---
:1960 Author Organization [place] Address [address] [facility] [place] [address] Care Team Providers Name Role Phone Yamila Dave PA-C Primary Care Provider Rahul Ford MD Unavailable [phone] Encounter Details Date Type Department Care Team Description 04/19/2022 External Order [facility] Outside, Provide r Results Molecular Diagnostic s [address] [place] [address] Social History Tobacco Use Types Packs/Day Years [...] Name Priority Date/Time Associated Diagnosis Comme nts IONIZED CALCIUM Routine 04/19/2022 12:00 PM Resul ts for this CDT procedure are i n the results section. BASIC METABOLIC Routine 04/19/2022 12:00 PM Resul ts for this PANEL CDT procedure are i n the results section. CBC WITH PLATELETS Routine 04/19/2022 12:00 PM Re sults for this CDT procedure are i n the results section. documented in this encounter Results Ionized Calcium (04/19/2022 12:00 PM CDT) athologist Signature Calcium Ionized 1.26 1.11 - NON-INTERFACED (External) 1.33 (ONBASE SCANS) mmol/L Specimen (Source) Anatomical Collection Method Collection Time Re ceived Time Location / / Volume Laterality Blood 04/19/2022 12:00 PM CDT Narrative [facility] - 04/20/2022 2:32 PM CDT Verified by Joshua Delacruz on 04/20/20. Provider Outside LAB - BLOOD ORDERABLES Performing Organization Address City/State/[facility] Code Phon e Number [facility] NON-INTERFACED (ONBASE SCANS) CBC with platelets (04/19/2022 12:00 PM CDT) athologist Signature Hematocrit 37.9 33.0 - NON-INTERFACED (External) 51.0 % (ONBASE SCANS) Hemoglobin 12.8 12.0 - NON-INTERFACED (External) 16.0 gm/dL (ONBASE SCANS) Platelet Count 195 140 - 440 NON-INTERFACED (External) K/uL (ONBASE SCANS) RBC Count 4.15 4.00 - NON-INTERFACED (External) 5.20 m/uL (ONBASE SCANS) WBC Count 6.41 4.50 - NON-INTERFACED (External) 11.00 K/uL (ONBASE SCANS) Specimen (Source) Anatomical Collection Method Collection Time Re ceived Time Location / / Volume Laterality Blood 04/19/2022 12:00 PM CDT Narrative [facility] - 04/20/2022 2:32 PM CDT Verified by Joshua Delacruz on 04/20/20. Provider Outside LAB - BLOOD ORDERABLES Performing Organization Address City/State/ZIP Code Phon e Number [facility] NON-INTERFACED (ONBASE SCANS) Basic metabolic panel (04/19/2022 12:00 PM CDT) athologist Signature Urea Nitrogen 8 8 - 26 NON-INTERFACED (External) mg/dl (ONBASE SCANS) Chloride 104 98 - 109 NON-INTERFACED (External) mmol/L (ONBASE SCANS) (External) Creatinine 0.7 0.6 - 1.3 NON-INTERFACED (External) mg/dl (ONBASE SCANS) Potassium 4.1 3.5 - 4.9 NON-INTERFACED (External) mmol/L (ONBASE SCANS) Sodium 141 138 - 146 NON-INTERFACED (External) mmol/L (ONBASE SCANS) CO2 (External) 28 20 - 32 NON-INTERFACED mmol/L (ONBASE SCANS) Glucose 90 60 - 115 NON-INTERFACED (External) mg/dl (ONBASE SCANS) Specimen (Source) Anatomical Collection Method Collection Time Re ceived Time Location / / Volume Laterality Blood 04/19/2022 12:00 PM CDT Narrative [facility] - 04/20/2022 2:32 PM CDT Verified by Joshua Delacruz on 04/20/20 22. Provider Outside LAB - BLOOD ORDERABLES Performing Organization Address City/State/ZIP Code Phon e Number [facility] NON-INTERFACED (ONBASE SCANS) documented in this encounter Visit Diagnoses Not on filedocumented in this encounter Care Teams Dev Manager Relationship Specialty Start Date End Date Yamila Dave, PCP - General Physician Meat Soaker 04/14/20 [facility] [address] [place] [address] Rahul Ford Assigned Heart and 01/23/21 MD [facility] Vascular Provider [facility] HEART CARE [address] [address] documented as of this encounter
--- OUTSIDE RECORDS SUMMARY | 2022-06-15 08:53 | XMS_ITS | Encounter Summary ---
:1960 Author Organization [facility] Address [address] [place] [address]. [place] [address] Care Team Providers Name Role Phone Ananth Hinojosa PA-C Primary Care Provider [phone] Rahul Ford MD Unavailable Reason for Visit Reason Comments Chest Pain Encounter Details Date Type Department Care Team Description 03/12/2022 Emergency [facility] Linda Diamond MD [facility] [address] [facility] [address] [id number] Chest pain, [facility] Cesar Saavedra DO [facility] [address] [place] [address] unspecified type [address] [place] [address] Social History Tobacco Use Types Packs/Day Years [...] Sign Reading Time Taken Comments Blood Pressure 122/78 03/12/2022 5:45 PM CDT Pulse 80 03/12/2022 5:46 PM CDT Temperature 36.2 ??C (97.1 ??F) 03/12/2022 1:55 PM CDT Respiratory Rate 17 03/12/2022 5:46 PM CDT Oxygen Saturation 95% 03/12/2022 5:46 PM CDT Inhaled Oxygen Concentration - - Weight 82.6 kg (182 lb) 03/12/2022 1:55 PM CDT Height - - Body Mass Index 31.24 02/22/2022 10:41 AM CDT documented in this encounter Discharge Instructions AttachmentsThe following attachments cannot be sent through Care Everywhere. Chest Pain, Uncertain Cause (Nauruan)documented in this encounter Medications at Time of Discharge Medication Sig Dispensed Refills Start Date End Date citalopram (CELEXA) 20 Take 20 mg by mouth 0 /01/2020 MG tablet daily Doxylamine Succinate, Take by [...] by mouth daily Coronary artery disease involving [place] coronary artery of [place] heart without angina pectoris atorvastatin (LIPITOR) Take 1 tablet (40 mg) 90 tablet 3 04/06/2022 40 MG by mouth daily tabletIndications: Coronary artery disease involving [place] coronary artery of [place] heart without angina pectoris, Palpitations metoprolol tartrate Take 0.5 tablets (12.5 90 tablet 3 03/0304/07/2022 (LOPRESSOR) 25 MG mg) by mouth 2 times tabletIndications: daily Coronary artery disease involving [place] coronary artery of [place] heart without angina pectoris, Palpitations documented as of this encounter ED Notes Cesar Saavedra DO - 03/12/2022 5:58 PM CDT 1600: I received signout from my partner, Dr. Diamond. Please see her H&P for full specifics. I was asked to follow-up on a chest x-ray and second troponin result. Dr. Diamond notes that discharge is set up for the patient should those tests be normal. Outpatient stress echocardiogram was ordered. 1750: I rechecked the patient. We discussed her reassuring chest x-ray, and a normal second troponin. I talked with the patient about potentially doing a third troponin though she states she feels wellenough and would like to go home. The patient will be discharged in stable condition to follow-up asnoted but may return with any new or worsening symptoms. Cesar Saavedra DO 03/12/22 1756 Bridget Maya RN - 03/12/2022 1:57 PM CDT Chest pain for about 45 min, states pain is improving.. Also c/o migraine, unable to turn her head. Hx of [place] 2 years ago. Triage Assessment Row Name 03/12/22 3846 Triage Assessment (Adult) Airway WDL WDL Respiratory WDL Respiratory WDL cough Cough Frequency frequent Cough Type congested Skin Circulation/Temperature WDL Skin Circulation/Temperature WDL WDL Cardiac WDL Cardiac WDL chest pain Chest Pain Assessment Chest Pain Location midsternal Duration 45min Precipitating Factors at rest Peripheral/Neurovascular WDL Peripheral Neurovascular WDL WDL Cognitive/Neuro/Behavioral WDL Cognitive/Neuro/Behavioral WDL WDL Gloria Diamond MD - 03/12/2022 1:52 PM CDT History Chief Complaint: Chest Pain HPI Kriss Song is a 61 year old female with history of NSTEMI, hypertension, and CAD who presentswith chest pain. The patient reports that she was diagnosed with Covid about a week ago, and was prescribed Fluvoxin. She has had a migraine with this, which is unusual for her. Today, she had an onsetof heavy, center chest pressure while lying on her couch that lasted for about 10 minutes. Slight shortness of breath and nausea. She had a myocardial infarction two years ago, but states this pain feels different and does not radiate into her jaw or arm as it did with the heart attack. Review of Systems Respiratory: Positive for shortness of breath. Cardiovascular: Positive for chest pain. Gastrointestinal: Positive for nausea. Neurological: Positive for headaches. All other systems reviewed and are negative. Allergies: Bupropion Paroxetine Sertraline Sulfa Drugs Medications: Aspirin 81 mg Atorvastatin Losartan Metoprolol Citalopram Doxylamine succinate Folic acid Methotrexate Omeprazole Cholecalciferol Past Medical History: Hypertension NSTEMI Coronary artery disease Obstructive sleep apnea Iron deficiency anemia Gastroesophageal reflux disease Vitamin D deficiency Obesity Past Surgical History: section L[place] fallopian tube Lumpectomy Family History: Father- prostate cancer, AAA, [place] Mother- basal cell carcinoma, emphysema, cataracts, COPD Sister- psychiatric illness Social History: The patient presents to the ED alone PCP: Jose Phillips MD Physical Exam Patient Vitals for the past 24 hrs: BP Temp Temp src Pulse Resp SpO2 Weight 03/12/22 1500 -- -- -- 76 10 94 % -- 03/12/22 1445 (!) 151/98 -- -- 87 21 94 % -- 03/12/22 1430 (!) 146/95 -- -- 91 16 94 % -- 03/12/22 1415 (!) 157/123 -- -- 98 20 94 % -- 03/12/22 1355 (!) 162/113 97.1 ??F (36.2 ??C) Temporal 112 16 100 % 82.6 kg (182 lb) Physical Exam General/Appearance: appears stated age, well-groomed, appears comfortable Eyes: EOMI, no scleral injection, no icterus ENT: MMM Neck: supple, nl ROM, no stiffness Cardiovascular: RRR, nl S1S2, no m/r/g, 2+ pulses in all 4 extremities, cap refill <2sec Respiratory: CTAB, good air movement throughout, no wheezes/rhonchi/rales, no increased WOB, no retractions GI: abd soft, non-distended, nttp, no HSM, no rebound, no guarding, nl BS MSK: OAKES, good tone, no bony abnormality Skin: warm and well-perfused, no rash, no edema, no ecchymosis, nl turgor Neuro: GCS 15, alert and oriented, no gross focal neuro deficits Psych: interacts appropriately Heme: no petechia, no purpura, no active bleeding Emergency Department Course ECG ECG taken at 1403, ECG read at 1408 Normal sinus rhythm; rightward axis; inferior infarct, age undetermined New rightward axis as compared to prior, dated 01/04/2021. Rate 88 bpm. [place] interval 158 ms. QRS duration 84 ms. QT/QTc 360/435 ms. P-R-T axes 24 101 12. Imaging: XR Chest 2 Views (Results Pending) Exercise Stress Echocardiogram (Results Pending) Report per radiology Laboratory: Labs Ordered and Resulted from Time of ED Arrival to Time of ED Departure CBC WITH PLATELETS AND DIFFERENTIAL - Abnormal Result Value WBC Count 6.9 RBC Count 5.64 (*) Hemoglobin 16.6 (*) Hematocrit 48.8 (*) MCV 87 MCH 29.4 MCHC 34.0 RDW 12.8 Platelet Count BASIC METABOLIC PANEL - Normal Sodium 138 Potassium 3.9 Chloride 105 Carbon Dioxide (CO2) 23 Anion Gap 10 Urea Nitrogen 28 Creatinine 0.57 Calcium 8.8 Glucose 83 GFR Estimate >90 TROPONIN I - Normal Troponin I High Sensitivity 6 NT PROBNP INPATIENT - Normal N terminal Pro BNP Inpatient 26 Emergency Department Course: Reviewed: I reviewed nursing notes, vitals, past medical history and Care Everywhere Assessments: 1405 I obtained history and examined the patient as noted above. 1452 I updated the patient with lab results. Interventions: Medications dexamethasone PF (DECADRON) injection 10 mg (10 mg Intravenous Given 03/12/22 1457) diphenhydrAMINE (BENADRYL) injection 50 mg (50 mg Intravenous Given 03/12/22 1457) metoclopramide (REGLAN) injection 10 mg (10 mg Intravenous Given 03/12/22 1458) ketorolac (TORADOL) injection 15 mg (15 mg Intravenous Given 03/12/22 1457) Disposition: Care of the patient was transferred to my colleague Dr. Saavedra pending repeat troponin. Impression & Plan [facility] Diagnoses: None Medical Decision Making: This patient is a pleasant 61-year-old female with history of NSTEMI who presents with chest pain. Pain lasted approximately 10 minutes and was described as chest pressure and heaviness associated withmild shortness of breath. All symptoms have currently resolved. Her initial troponin is negative andher EKG is unremarkable. Chest x-ray is still pending. I think given her risk factors it is reasonable to do a delta high-sensitivity troponin. If this is unremarkable I think it is reasonable to discharge her home with an urgent outpatient stress test. All of this was discussed with the patient who feels comfortable with this plan. Her care will be signed out to Dr. Saavedra pending the repeat troponin. Diagnosis: ICD-10-CM 1. Chest pain, unspecified type R07.9 Exercise Stress Echocardiogram Scribe Disclosure: I, Addie Guerra, am serving as a scribe at 2:05 PM on 03/12/2022 to document services personally performed by Gloria Diamond MD based on my observations and the provider's statements to me. Gloria Diamond MD 03/12/22 154 documented in this encounter Plan of Treatment Not on filedocumented as of this encounter Procedures Procedure Name Priority Date/Time Associated Comments Diagnosis TROPONIN I STAT 03/12/2022 4:46 PM Results f or this CDT procedure are i n the results section. XR CHEST 2 VIEWS STAT 03/12/2022 4:04 PM Resul ts for this CDT procedure are i n the results section. RBC AND PLATELET STAT 03/12/2022 2:16 PM Resul ts for this MORPHOLOGY CDT procedure are i n the results section. CBC WITH PLATELETS STAT 03/12/2022 2:16 PM Res ults for this AND DIFFERENTIAL CDT procedure a re in the results section. CBC WITH PLATELETS & STAT 03/12/2022 2:16 PM R esults for this DIFFERENTIAL CDT procedure are i n the results section. TROPONIN I STAT 03/12/2022 2:16 PM Results f or this CDT procedure are i n the results section. NT PROBNP INPATIENT STAT 03/12/2022 2:16 PM Re sults for this CDT procedure are i n the results section. BASIC METABOLIC PANEL STAT 03/12/2022 2:16 PM Results for this CDT procedure are i n the results section. EKG 12-LEAD, TRACING STAT 03/12/2022 2:03 PM R esults for this ONLY CDT procedure are i n the results section. documented in this encounter Results ECHO EXERCISE STRESS TEST WITH CONTRAST (03/28/2022 10:55 AM CDT) Anatomical Region Laterality Modality Echocardiography Specimen (Source) Anatomical Collection Method Collection Time Re ceived Time Location / / Volume Laterality 03/28/2022 10:28 AM CDT Narrative 03/28/2022 5:37 PM CDT [id number]^JULIA^GLORIA^[facility]T [facility] [address] [place] [address] Name: KRISS SONG : 1960 Study Date: 03/28/2022 10:28 AM Age: 61 yrs Gender: Female Patient Location: [facility] Reason For Study: Chest pain, unspecifie d type History: HTN Ordering Physician: GLORIA DIAMOND Referring Physician: ANANTH HINOJOSA Performed By: Yaz Hess BSA: 1.9 m2 Height: 64 in Weight: 182 lb HR: 90 BP: 126/78 mmHg Medications: metoprolol,LOSARTAN,ASA,Deon rovastatin Procedure Stress Echo Complete. Contrast Optison. Interpretation Summary This was a normal stress echocardiogram with no evidence of stress-induced ischemia. No hemodynamically significant valvular abnormalities on 2D or color flow imaging. Stress RPP 577[address]. The patient exercised 7:00. The patient exhibited no chest pain duri ng exercise. There was a normal BP response to exerci se. This study was stopped as the patient ac hieved an adequate exercise effort for a diagnostic study. A moderate workload was achieved. Target Heart Rate was achieved. The Levi treadmill score was low risk ( >5 Levi score). There were no ST segment changes observe d with stress. No arrhythmia noted. Normal resting wall motion and no stress -induced wall motion abnormality. Left ventricular cavity size decreases w ith exercise. Global LV systolic function augments wit h exercise. The visual ejection fraction is 65-70%. Baseline The patient is in normal sinus rhythm. Right axis deviation, possible old anter ior FL. Normal left ventricular wall motion. The visual ejection fraction is estimate d at 55-60%. Stress Results ? Protocol: ??Steve ?Maximum Predicted HR: ?? 160 bpm ? Target HR: 136 bpm ?% Maximum Predicted HR: 93 % ? Stage ??Dura tionHeart Rate ??BP ?Comment ? (mm:ss) ?? (bpm) ?Stage 1 ?? 3: 00 ?115 ?? 144/78 ?Stage 2 ?? 3: 00 ?133 ?? 160/78 ?Stage 3 ?? 1: 00 ?148 ?/ ??RPP: 87583 ? RecoveryR ??5:0 0 ?95 ?126/78 ? Stress Duration: ?? 7:00 mm:ss * ?Recovery Time: 5:00 mm:ss ? Maximum Stress HR: 148 bpm * ? METS: ?8 Report approved by: Jeremias Ennis MD on 03/28/2022 05:37 PM Procedure Note Jeremias Ennis MD - 03/28/2022Form atting of this note might be different from the original. [id number]^JULIA^GLORIA^[facility]T [facility] [address] [place] [address] Name: KRISS SONG : 1960 Study Date: 03/28/2022 10:28 AM Age: 61 yrs Gender: Female Patient Location: [facility] Reason For Study: Chest pain, unspecifie d type History: HTN Ordering Physician: GLORIA DIAMOND Referring Physician: ANANTH HINOJOSA Performed By: Yaz Hess BSA: 1.9 m2 Height: 64 in Weight: 182 lb HR: 90 BP: 126/78 mmHg Medications: metoprolol,LOSARTAN,ASA,Deon rovastatin Procedure Stress Echo Complete. Contrast Optison. Interpretation Summary This was a normal stress echocardiogram with no evidence of stress-induced ischemia. No hemodynamically significant valvular abnormalities on 2D or color flow imaging. Stress RPP 71526. The patient exercised 7:00. The patient exhibited no chest pain duri ng exercise. There was a normal BP response to exerci se. This study was stopped as the patient ac hieved an adequate exercise effort for a diagnostic study. A moderate workload was achieved. Target Heart Rate was achieved. The Levi treadmill score was low risk ( >5 Levi score). There were no ST segment changes observe d with stress. No arrhythmia noted. Normal resting wall motion and no stress -induced wall motion abnormality. Left ventricular cavity size decreases w ith exercise. Global LV systolic function augments wit h exercise. The visual ejection fraction is 65-70%. Baseline The patient is in normal sinus rhythm. Right axis deviation, possible old anter ior [place]. Normal left ventricular wall motion. The visual ejection fraction is estimate d at 55-60%. Stress Results Protocol: Steve Maximum Predicted HR: 1 60 bpm Target HR: 136 bpm % Maximum Predicted HR: 93 % Stage DurationHeart Rate BP Comment (mm:ss) (bpm) Stage 1 3:00 115 144/78 Stage 2 3:00 133 160/78 Stage 3 1:00 148 / RPP: 85236 RecoveryR 5:00 95 126/78 Stress Duration: 7:00 mm:ss * Recovery Time: 5:00 mm:ss Maximum Stress HR: 148 bpm * METS: 8 Report approved by: Jeremias Ennis MD on 03/28/2022 05:37 PM Gloria Diamond MD CV ECHO ORDERABLES Troponin I (now) (03/12/2022 4:46 PM CDT) athologist Signature Troponin I High 14 <54 ng/L 03/12/2022 LABORATORY Sensitivity 5:36 PM CDT Comment: This Troponin-I result was obta ined using a Siemens Dimension Odin High Sensitivity Troponin-I assay (TNIH). Eff ective 07/26/21, nine labs/sites in the [facility] switched from a Siemens Odin Contemporary Troponin I assay (CTNI) to a Siemens Odin High-Sensitivity Troponi n I assay (TNIH). Specimen Anatomical Collection Method / Collection Time Recei tayla Time (Source) Location / Volume Laterality Blood STRUCTURE OF RIGHT Venipuncture / 03/12/2022 4:46 / 5:06 HAND / Unknown Unknown PM CDT PM CDT Gloria Diamond MD LAB - BLOOD ORDERABLES Performing Organization Address City/State/ZIP Code Phon e Number [place] [phone] Care Lab [address] Lab (1st floor, no room number) XR Chest 2 Views (03/12/2022 4:04 PM CDT) Anatomical Region Laterality Modality Chest Digital Radiography Specimen (Source) Anatomical Collection Method Collection Time Re ceived Time Location / / Volume Laterality 03/12/2022 3:55 PM CDT Impressions 03/12/2022 4:08 PM CDT IMPRESSION: Heart is normal in size. Chantal gs are clear. Narrative 03/12/2022 4:08 PM CDT EXAM: XR CHEST 2 VW LOCATION: [facility] DATE/TIME: 03/12/2022 3:55 PM INDICATION: CP COMPARISON: 01/04/2021 Procedure Note Blaine Rodrigez MD - 03/12/2022Formattin g of this note might be different from the original. EXAM: XR CHEST 2 VW LOCATION: [facility] DATE/TIME: 03/12/2022 3:55 PM INDICATION: CP COMPARISON: 01/04/2021 IMPRESSION: Heart is normal in size. Chantal gs are clear. Gloria Diamond MD IMG DIAGNOSTIC IMAGING OR DERABLES RBC and Platelet Morphology (03/12/2022 2:16 PM CDT) [facility] Method Time Signature Platelet Automated Automated 03/12/2022 [facility] Assessment Count Count 3:24 PM CDT Confirmed. Confirmed. Platelet Platelet morphology is morphology is normal. normal. RBC Confirmed RBC 03/12/2022 [facility] Morphology Indices 3:24 PM CDT Specimen Anatomical Collection Method / Collection Time Recei tayla Time (Source) Location / Volume Laterality Blood STRUCTURE OF RIGHT Venipuncture / 03/12/2022 2:16 03/03 2:22 UPPER LIMB / Unknown PM CDT PM CDT Unknown Gloria Diamond MD LAB - BLOOD ORDERABLES Performing Organization Address City/State/ZIP Code Phon e Number [place] [address] Care Lab [address] Lab (1st floor, no room number) (ABNORMAL) CBC with platelets and differential (03/12/2022 2:16 PM CDT) [facility] Method Time Signature WBC Count 6.9 4.0 - 03/12/2022 [facility] 11.0 3:23 PM CDT 10e3/uL RBC Count 5.64 (H) 3.80 - 03/12/2022 [facility] 5.20 3:23 PM CDT 10e6/uL Hemoglobin 16.6 (H) 11.7 - 03/12/2022 [facility] 15.7 g/dL 3:23 PM CDT Hematocrit 48.8 (H) 35.0 - 03/12/2022 [facility] 47.0 % 3:23 PM CDT MCV 87 78 - 100 03/12/2022 [facility] fL 3:23 PM CDT MCH 29.4 26.5 - 03/12/2022 [facility] 33.0 pg 3:23 PM CDT MCHC 34.0 31.5 - 03/12/2022 [facility] 36.5 g/dL 3:23 PM CDT RDW 12.8 10.0 - 03/12/2022 [facility] 15.0 % 3:23 PM CDT Platelet Count 188 150 - 450 03/12/2022 [facility] 10e3/uL 3:23 PM CDT % Neutrophils 72 % 03/12/2022 [facility] 3:23 PM CDT % Lymphocytes 16 % 03/12/2022 [facility] 3:23 PM CDT % Monocytes 11 % 03/12/2022 [facility] 3:23 PM CDT % Eosinophils 1 % 03/12/2022 [facility] 3:23 PM CDT % Basophils 0 % 03/12/2022 [facility] 3:23 PM CDT % Immature 0 % 03/12/2022 [facility] Granulocytes 3:23 PM CDT NRBCs per 100 0 <1 /100 03/12/2022 [facility] WBC 3:23 PM CDT Absolute 4.9 1.6 - 8.3 03/12/2022 [facility] Neutrophils 10e3/uL 3:23 PM CDT Absolute 1.1 0.8 - 5.3 03/12/2022 [facility] Lymphocytes 10e3/uL 3:23 PM CDT Absolute 0.8 0.0 - 1.3 03/12/2022 [facility] Monocytes 10e3/uL 3:23 PM CDT Absolute 0.1 0.0 - 0.7 03/12/2022 [facility] Eosinophils 10e3/uL 3:23 PM CDT Absolute 0.0 0.0 - 0.2 03/12/2022 [facility] Basophils 10e3/uL 3:23 PM CDT Absolute 0.0 <=0.4 03/12/2022 [facility] Immature 10e3/uL 3:23 PM CDT Granulocytes Absolute NRBCs 0.0 10e3/uL 03/12/2022 [facility] 3:23 PM CDT Specimen Anatomical Collection Method / Collection Time Recei tayla Time (Source) Location / Volume Laterality Blood STRUCTURE OF RIGHT Venipuncture / 03/12/2022 2:16 07/ 2:22 UPPER LIMB / Unknown PM CDT PM CDT Unknown Gloria Diamond MD LAB - BLOOD ORDERABLES Performing Organization Address City/State/ZIP Code Phon [place] [id number] Care Lab [address] Lab (1st floor, no room number) Nt probnp inpatient (BNP) (03/12/2022 2:16 PM CDT) P athologist Signature N terminal Pro 26 0 - 900 03/12/2022 [facility] BNP Inpatient pg/mL 2:49 PM CDT Comment: Reference range shown and results flagge d as abnormal are suggested inpatient cut points for confirming diagnosis if CHF in an acute setting. Establishing a baseline value for each individual patient is useful for follow-up. An inpatient or e mergency department NT-proPBNP <300 pg/mL effectively rules out acute CHF, with 99% negative predictive value. The outpatient non-acute reference range for ruling out CHF is: 0-125 pg/mL (age 18 to less than 75) 0-450 pg/mL (age 75 yrs and older) Specimen Anatomical Collection Method / Collection Time Recei tayla Time (Source) Location / Volume Laterality Blood STRUCTURE OF RIGHT Venipuncture / 03/12/2022 2:16 / 2:22 UPPER LIMB / Unknown PM CDT PM CDT Unknown Gloria Diamond MD LAB - BLOOD ORDERABLES Performing Organization Address [facility]/ZIP [facility] [place] [address] Care Lab [address] Lab (1st floor, no room number) Troponin I (03/12/2022 2:16 PM CDT) athologist Signature Troponin I High 6 <54 ng/L 03/12/2022 LABORATORY Sensitivity 2:50 PM CDT Comment: This Troponin-I result was obta ined using a Siemens Dimension Odin High Sensitivity Troponin-I assay (TNIH). Eff ective 07/26/21, nine labs/sites in the [facility] switched from a Siemens Odin Contemporary Troponin I assay (CTNI) to a Siemens Odin High-Sensitivity Troponi n I assay (TNIH). Specimen Anatomical Collection Method / Collection Time Recei tayla Time (Source) Location / Volume Laterality Blood STRUCTURE OF RIGHT Venipuncture / 03/12/2022 2:16 03/03 2:22 UPPER LIMB / Unknown PM CDT PM CDT Unknown Gloria Diamond MD LAB - BLOOD ORDERABLES Performing Organization Address City/[facility] [place] [address] Care Lab [address] Lab (1st floor, no room number) Basic metabolic panel (03/12/2022 2:16 PM CDT) athologist Signature Sodium 138 133 - 144 03/12/2022 LABORATORY mmol/L 2:48 PM CDT Potassium 3.9 3.4 - 5.3 03/12/2022 LABORATORY mmol/L 2:48 PM CDT Comment: Specimen slightly hemolyzed, po tassium may be falsely elevated. Chloride 105 94 - 109 mmol/L 03/12/2022 2:48 PM CDT [facility] Carbon Dioxide (CO2) 23 20 - 32 mmol/L 03/12/2022 2:4 8 PM CDT [facility] Anion Gap 10 3 - 14 mmol/L 03/12/2022 2:48 PM CDT [facility] Urea Nitrogen 28 7 - 30 mg/dL 03/12/2022 2:48 PM CDT [facility] Creatinine 0.57 0.52 - 1.04 mg/dL 03/12/2022 2:48 PM CD T [facility] Calcium 8.8 8.5 - 10.1 mg/dL 03/12/2022 2:48 PM CDT [facility] Glucose 83 70 - 99 mg/dL 03/12/2022 2:48 PM CDT [facility] GFR Estimate >90 >60 mL/min/1.73m2 03/12/2022 2:48 PM CDT [facility] Comment: Effective August 23, 2021 eGF Rcr in adults is calculated using the 2020 CKD-EPI creatinine equation which includ es age and gender (Roberto et al., NEJ, DOI: 10.1056/YNTLav7725157) Specimen Anatomical Collection Method / Collection Time Recei tayla Time (Source) Location / Volume Laterality Blood STRUCTURE OF RIGHT Venipuncture / 03/12/2022 2:16 03/03 2:22 UPPER LIMB / Unknown PM CDT PM CDT Unknown Gloria Diamond MD LAB - BLOOD ORDERABLES Performing Organization Address City/State/ZIP Code Phon [place] [address] Care Lab [address] Lab (1st floor, no room number) EKG 12 lead (03/12/2022 2:03 PM CDT) Component Value Ref Range Test Analysis Performed Pathologis t Method Time At Signature Systolic Blood mmHg RADIOLOGY Pressure RESULTS Diastolic Blood mmHg RADIOLOGY Pressure RESULTS Ventricular Rate 88 BPM RADIOLOGY RESULTS Atrial Rate 88 BPM RADIOLOGY RESULTS [place] Interval 158 ms RADIOLOGY RESULTS QRS Duration 84 ms RADIOLOGY RESULTS QT 360 ms RADIOLOGY RESULTS QTc 435 ms RADIOLOGY RESULTS P Butler 24 degrees RADIOLOGY RESULTS R AXIS 101 degrees RADIOLOGY RESULTS T Butler 12 degrees RADIOLOGY RESULTS Interpretation Sinus rhythm RADIOLOGY ECG Rightward axis RESULTS Inferior infarct (cited on or before 16-SEP-2020) Abnormal ECG When compared with ECG of 04-JAN-2021 19:52, Questionable change in initial forces of Inferior leads Nonspecific T wave abnormality no longer evident in Anterola teral leads Confirmed by - EMERGENCY NIKOLAS Storm PHYSICIAN ([id number]), general expeditor ROSALINA MAKI ([id number]) on 03/13/2022 6:39:16 AM Specimen Anatomical Collection Method Collection Time Receive d Time (Source) Location / / Volume Laterality 03/12/2022 2:03 PM 6:39 CDT AM CDT Gloria Diamond MD ECG ORDERABLES Performing Organization Address City/State/ZIP Code Phon e Number RADIOLOGY RESULTS documented in this encounter Visit Diagnoses Diagnosis Chest pain, unspecified type documented in this encounter Administered Medications Inactive Administered Medications - up to 3 most recent administrations Medication Order MAR Action Action Date Dose Rate Site dexamethasone PF (DECADRON) Given 03/12/2022 2:57 PM CDT 10 mg injection 10 mg 10 mg, Intravenous, ONCE, Administer over 1 Minutes, On 03/12/22 at 1415, For 1 dose diphenhydrAMINE (BENADRYL) injection 50 mg Given 03/12/2022 2:57 PM CDT 50 mg 50 mg, Intravenous, ONCE, On 03/12/22 at 1415, For 1 dose ketorolac (TORADOL) injection 15 mg Given 03/12/2022 2:57 PM CDT 15 mg 15 mg, Intravenous, ONCE, On 03/12/22 at 1415, For 1 dose, Can cause pain on injection. If ordered intravenously (IV) : administer through a running maintenance fluid over 1 minute followed by a flush. If patient complains of pain on injection, may dilute 15-30 mg in 5 mL and push over 1 to 2 minutes. metoclopramide (REGLAN) injection 10 mg Given 03/12/2022 2:58 PM CDT 10 mg 10 mg, Intravenous, Administer over 2 Minutes, ONCE, On 03/12/22 at 1415, For 1 dose, Avoid use if patient has full bowel obstruction or perforation. Irritant. documented in this encounter Active and Recently Administered Medications Times are shown in CDT. Scheduled Medication Order 03/10/2022 03/11/2022 03/12/2022 dexamethasone PF (DECADRON) injection 10 mg (COMPLETED) 1456 (Given - Provider: Shawna Holm RN) 10 mg, Intravenous, ONCE, Administer ove r 1 Minutes, On 03/12/22 at 1415, For 1 dose diphenhydrAMINE (BENADRYL) injection 50 mg (COMPLETED) 1456 (Given - Provider: Shawna Holm RN) 50 mg, Intravenous, ONCE, On 03/12/22 at 1415, For 1 dose ketorolac (TORADOL) injection 15 mg (COMPLETED) 1456 (Given - Provider: Shawna Holm RN) 15 mg, Intravenous, ONCE, On 03/12/22 at 1415, For 1 dose, Can cause pain on injection. If ordered intravenously (IV) : administer through a running maintenance fluid over 1 minute followed by a flus h. If patient complains of pain on injec tion, may dilute 15-30 mg in 5 mL and push over 1 to 2 minutes. metoclopramide (REGLAN) injection 10 mg (COMPLETED) 1457 (Given - Provider: Shawna Holm RN) 10 mg, Intravenous, Administer over 2 Mi nutes, ONCE, On 03/12/22 at 1415, For 1 dose, Avoid use if patient has full bowel obstruction or perforation. Irritant. documented in this encounter Care Teams Floor Layer Tile Relationship Specialty Start Date End Date Ananth Hinojosa, PCP - General Physician Case Loader Operator 04/14/20 RITIKA [facility] [address] [place] [address] Rahul Ford Assigned Heart and 01/23/21 MD [facility] Provider [facility] [address] [address] documented as of this encounter
--- OUTSIDE RECORDS SUMMARY | 2022-06-15 08:53 | XMS_ITS | Clinical Summary ---
:1960 Author Organization [place] Address [address] [facility] [address] Care Team Providers Name Role Phone Ananth Hinojosa PA-C Primary Care Provider [phone] Rahul Ford MD Unavailable [phone] Allergies Active Allergy Reactions Severity Noted Date Comments Bupropion Hives 11/18/2020 Paroxetine Rash Low 09/26/2006 Sertraline Rash Low 02/19/2012 Sulfa Drugs Rash Low 01/25/2020 Medications Medication Sig Dispensed Refills Start Date End Date Status folic acid (FOLVITE) 1 Take 1 mg by mouth 0 12/21/19 20 Active MG tablet daily methotrexate 2.5 MG 15 mg every 7 days 0 01/09/2020 Active tablet citalopram (CELEXA) 20 Take 20 mg by 0 04/07/2020 Active MG tablet mouth daily Vitamin D3 Take 2,000 Units 0 Ac tive (CHOLECALCIFEROL) 25 by mouth mcg (1000 units) tablet Multiple Vitamin Take by mouth 0 Active (MULTI-VITAMINS) TABS daily Doxylamine Succinate, Take by mouth as 0 Active Sleep, (SLEEP AID PO) needed ketorolac (TORADOL) 10 Take 1 tablet (10 10 tablet 0 1 Active MG tablet mg) by mouth every 6 hours as needed for pain Take as sparingly as possible. Avoid taking any other NSAIDS while using this medication. Additional Information Patient not taking. Reported on 02/22/2022 golimumab (SIMPONI) 50 Simponi 50 mg/0.5 mL 0 Active MG/0.5ML auto-injector pen subcutaneous pen injector omeprazole (PRILOSEC) 20 MG omeprazole [address] capsule capsule,delayed release losartan (COZAAR) 50 MG Take 1 tablet (50 mg) by 90 tablet 3 0 02/22/2022 Active tabletIndications: Benign mouth daily essential hypertension atorvastatin (LIPITOR) 40 Take 1 tablet (40 mg) by 90 tablet 3 04/06/2022 Active MG tabletIndications: mouth daily Coronary artery disease involving squaxin coronary artery of squaxin heart without angina pectoris, Palpitations ASPIRIN LOW DOSE 81 MG EC Take 1 tablet (81 mg) by 90 tablet 3 04/07/2022 Active tabletIndications: Coronary mouth daily artery disease involving squaxin coronary artery of squaxin heart without angina pectoris metoprolol tartrate Take 0.5 tablets (12.5 mg) 90 tablet 3 01/2022 Active (LOPRESSOR) 25 MG by mouth 2 times daily tabletIndications: Coronary artery disease involving squaxin coronary artery of squaxin heart without angina pectoris, Palpitations Active Problems Problem Noted Date Coronary artery disease 04/03/2020 Essential hypertension 01/08/2017 Gastroesophageal reflux disease 01/08/2017 Iron deficiency anemia 01/08/2017 Obesity 01/08/2017 Obstructive sleep apnea syndrome 01/08/2017 Vitamin D deficiency 01/08/2017 Encounters Date Type Specialty Care Team Description 04/20/2022 Telephone Cardiology Andreea Alonzo RN Clinic Care Coordination - Follow-up 04/19/2022 External Order Lab Outside, Provider Results 04/07/2022 Refill Cardiology Kim Keyes, Refill R equest (ASA, RN Metoprolol) 04/06/2022 Orders Only Cardiology Marielos Baez, Coronary artery disease involving squaxin coronary artery of squaxin heart without angina pectoris; RN Palpitations 03/28/2022 Hospital Encounter Cardiology Gloria Diamond MD 03/28/2022 Travel from Last 3 Months Immunizations Name Administration Dates Next Due COVID-19,PF,Pfizer (12+ Yrs) 12/30/2020, 12/09/2020 Family History Medical History Relation Comments Aortic aneurysm Father Heart Failure Father Prostate Cancer Father Cataracts Mother Chronic Obstructive Pulmonary Disease Mother Emphysema Mother Relation Status Comments Father Mother Social History Tobacco Use Types Packs/Day Years Used Date Smoking Tobacco: Never Smokeless Tobacco: Never Alcohol Use Standard Drinks/Week Comments Yes 0 (1 standard drink = 0.6 oz pure alcoho l) rare occasion Sex Assigned at Date Recorded Female 04/22/2020 2:54 PM CDT Last Filed Vital Signs Vital Sign Reading Time Taken Comments Blood Pressure 122/78 03/12/2022 5:45 PM CDT Pulse 80 03/12/2022 5:46 PM CDT Temperature 36.2 ??C (97.1 ??F) 03/12/2022 1:55 PM CDT Respiratory Rate 17 03/12/2022 5:46 PM CDT Oxygen Saturation 95% 03/12/2022 5:46 PM CDT Inhaled Oxygen Concentration - - Weight 82.6 kg (182 lb) 03/12/2022 1:55 PM CDT Height 162.6 cm (5' 4) 02/22/2022 10:41 AM CDT Body Mass Index 31.24 02/22/2022 10:41 AM CDT Plan of Treatment Health Maintenance Due Date Last Done Comments ADVANCE CARE PLANNING 1960 ANNUAL REVIEW OF HM ORDERS 1960 CT COLONOGRAPHY 1961 FIT-DNA (Cologuard) 1960 FIT 1960 FLEX SIG 1960 YEARLY PREVENTIVE VISIT 1960 Pneumococcal Vaccine: 1967 Pediatrics (0 to 5 Years) and At-Risk Patients (6 to 64 Years) (1 - PCV) COLONOSCOPY 1971 COLORECTAL CANCER SCREENING 1971 HIV SCREENING 1976 HEPATITIS C SCREENING 1979 PAP 1982 PHQ-2 (once per calendar 09/03/2021 year) COVID-19 Vaccine (4 - 09/26/2021 08/01/2021, 12/30/2020, Booster for Pfizer series) 12/09/2020 INFLUENZA VACCINE (#1) 2022 06/17/2021, 05/18/2020, 06/23/2019, Additional history exists MAMMO SCREENING 08/24/2022 08/24/2020, 08/24/2020 LIPID 02/22/2027 02/22/2022, 08/11/2020, 04/03/2020 DTAP/TDAP/TD IMMUNIZATION 04/23/2029 04/23/2019, 05/06/2009 (3 - Td or Tdap) ZOSTER IMMUNIZATION Completed 07/25/2020, 05/18/2020 HEPATITIS B IMMUNIZATION Aged Out No long er eligible based on patient 's age to complete this topic IPV IMMUNIZATION Aged Out No longer eligi ble based on patient 's age to complete this topic MENINGITIS IMMUNIZATION Aged Out No longe r eligible based on patient 's age to complete this topic Procedures Procedure Name Priority Date/Time Associated Diagnosis [...] procedure are i n the results section. ECHO EXERCISE SHANIQUE 03/28/2022 10:55 AM Chest pain, Results for this STRESS TEST WITH CDT unspecified type procedu re are in CONTRAST the results section. from Last 3 Months Results Ionized Calcium (04/19/2022 12:00 PM CDT) athologist Signature Calcium Ionized 1.26 1.11 - NON-INTERFACED (External) 1.33 (ONBASE SCANS) mmol/L Specimen (Source) Anatomical Collection Method Collection Time Re ceived Time Location / / Volume Laterality Blood 04/19/2022 12:00 PM CDT Narrative SANDHYAE PFT - 04/20/2022 2:32 PM CDT Verified [...] e Number BREEZE PFT NON-INTERFACED (ONBASE SCANS) ECHO EXERCISE STRESS TEST WITH CONTRAST (03/28/2022 10:55 AM CDT) Anatomical Region Laterality Modality Echocardiography Specimen (Source) Anatomical Collection Method Collection Time Re ceived Time Location / / Volume Laterality 03/28/2022 10:28 AM CDT Narrative 03/28/2022 5:37 PM CDT [id number]^JULIA^GLORIA^BURT [facility] Echocardiography Laboratory [address] [place] [address] Name: KRISS SONG : 1960 Study Date: 03/28/2022 10:28 AM Age: 61 yrs Gender: Female Patient Location: [facility] Reason For Study: Chest pain, unspecifie d [...] 2D or color flow imaging. Stress RPP 03894. The patient exercised 7:00. The patient exhibited [...] Right axis deviation, possible old anter ior CA. Normal left ventricular wall motion. The visual [...] 3 ?? 1: 00 ?148 ?/ ??RPP: 70854 ? RecoveryR ??5:0 0 ?95 ?126/78 ? Stress Duration: ?? 7:00 mm:ss * ?Recovery Time: 5:00 mm:ss ? Maximum Stress HR: 148 bpm * ? METS: ?8 Report approved by: Jeremias Ennis MD on 03/28/2022 05:37 PM Procedure Note Jeremias Ennis MD - 03/28/2022Form atting of this note might be different from the original. [id number]^JULIA^GLORIA^BURT [facility] Echocardiography Laboratory [address] [place] [address] Name: KRISS SONG : 1960 Study Date: 03/28/2022 10:28 AM Age: 61 yrs Gender: Female Patient Location: [facility] Reason For Study: Chest pain, unspecifie d [...] 2D or color flow imaging. Stress RPP 18858. The patient exercised 7:00. The patient exhibited [...] Right axis deviation, possible old anter ior CA. Normal left ventricular wall motion. The visual ejection fraction is estimate d at 55-60%. Stress Results Protocol: Steve Maximum Predicted HR: 1 60 bpm Target HR: 136 bpm % Maximum Predicted HR: 93 % Stage DurationHeart Rate BP Comment (mm:ss) (bpm) Stage 1 3:00 115 144/78 Stage 2 3:00 133 160/78 Stage 3 1:00 148 / RPP: 44486 RecoveryR 5:00 95 126/78 Stress Duration: 7:00 mm:ss * Recovery Time: 5:00 mm:ss Maximum Stress HR: 148 bpm * METS: 8 Report approved by: Jeremias Ennis MD on 03/28/2022 05:37 PM Gloria Diamond MD CV ECHO ORDERABLES from Last 3 Months Insurance Payer Benefit Plan / Subscriber ID Effective Dates Phone Addre ss Type Group BLUE PLUS BLUE PLUS [id number] 2018-Present [phone] [place] [id number] HMO ADVANTAGE [place] [address] [place] [address] Care Teams Information Systems Analyst Relationship Specialty Start Date End Date Ananth Hinojosa, PCP - General Physician Spa Coordinator 04/14/20 PA-C [facility] [address] [place] [address] Rahul Ford Assigned Heart and 01/23/21 MD [facility] Provider [facility] [address] [place] [address]
--- OUTSIDE RECORDS SUMMARY | 2022-06-15 08:54 | XMS_ITS | Encounter Summary ---
:1960 Author Organization [place] Address [facility] [place] [address] Care Team Providers Name Role Phone Yamila Dave PA-C Primary Care Provider Alo Steel PA-C Unavailable Encounter Details Date Type Department Care Team Description 12/30/[address] [facility] Juan M So, Vaccination [id number] [place] [phone] Social History Tobacco Use Types Packs/Day Years Used Date Smoking Tobacco: Never Smokeless Tobacco: Never Alcohol Use Standard Drinks/Week Comments Yes 0 (1 standard drink = 0.6 oz pure alcoho l) rare occasion Sex Assigned at Date Recorded Female 04/22/2020 2:54 PM CDT COVID-19 Exposure Response Date Recorded In the last month, have you been in contact with No / Unsure 11/30/2020 12:43 PM CDT someone who was confirmed or suspected to have Coronavirus / COVID-19? documented as of this encounter Plan of Treatment Not on filedocumented as of this encounter Visit Diagnoses Not on filedocumented in this encounter Care Teams Information Systems Planner Relationship Specialty Start Date End Date Yamila Dave PCP - General Physician Janitor 04/14/20 RITIKA Mjoica [facility] [address], [place] [address] Alo Steel, Assigned Heart and 11/17/20 PA-C Vascular Provider [address] [place] [address] documented as of this encounter
--- OUTSIDE RECORDS SUMMARY | 2022-06-15 08:54 | XMS_ITS | Encounter Summary ---
:1960 Author Organization [place] Address [address] [facility] [place] [address] Care Team Providers Name Role Phone Yamila Dave PA-C Primary Care Provider [phone] Alo Steel PA-C Unavailable Encounter Details Date Type Department Care Team Description 11/24/2020 [facility] Jose Angel Lucero Calculus o f kidney [facility] MD Srinath (Primary Dx) [address] [facility] [place], [place] [address] [facility] [address] [place], [place] [id number] Social History Tobacco Use Types Packs/Day Years Used Date Smoking Tobacco: Never Smokeless Tobacco: Never Alcohol Use Standard Drinks/Week Comments Yes 0 (1 standard drink = 0.6 oz pure alcoho l) rare occasion Sex Assigned at Date Recorded Female 04/22/2020 2:54 PM CDT documented as of this encounter Plan of Treatment Not on filedocumented as of this encounter Visit Diagnoses Diagnosis Calculus of kidney - Primary documented in this encounter Care Teams Watch Parts Grinder Relationship Specialty Start Date End Date Yamila Dave PCP - General Physician Patch Setter 04/14/20 RITIKA Mojica [facility] [address] [place] [address] Alo Steel, Assigned Heart and 11/17/20 RITIKA Vascular Provider [address] [place] [address] documented as of this encounter
--- OUTSIDE RECORDS SUMMARY | 2022-06-15 08:54 | XMS_ITS | Encounter Summary ---
:1960 Author Organization [place] Address [address] [place] [address] Care Team Providers Name Role Phone Yamila Dave PA-C Primary Care Provider Alo Steel PA-C Unavailable Encounter Details Date Type Department Care Team Description 11/30/2020 Travel Social History Tobacco Use Types Packs/Day [...] on filedocumented in this encounter Care Teams Proposal Specialist Relationship Specialty Start Date End Date Yamila Dave PCP - General Physician Cuprous Chloride Operator 04/14/20 RITIKA Mojica [facility] [address] [place] [address] Alo Steel, Assigned Heart and 11/17/20 RITIKA Vascular Provider [address] [place], [place] [address] documented as of this encounter
--- OUTSIDE RECORDS SUMMARY | 2022-06-15 08:54 | XMS_ITS | Encounter Summary ---
:1960 Author Organization [place] Address [address] [facility] [place] [address] Care Team Providers Name Role Phone Yamila Dave PA-C Primary Care Provider [phone] Rahul Ford MD Unavailable [phone] Reason for Visit Reason Onset Date Comments Results 11/05/2020 monitoring and evaluation advisor Encounter Details Date Type Department Care Team Description 11/05/2020 Telephone [facility] Asif Schroeder (cardiac Heart Clinic Yesi Mello, RN monitor) [address] [place] [phone] Social History Tobacco Use Types Packs/Day Years Used Date Smoking Tobacco: Never Smokeless Tobacco: Never Alcohol Use Standard Drinks/Week Comments Yes 0 (1 standard drink = 0.6 oz pure alcoho l) rare occasion Sex Assigned at Date Recorded Female 04/22/2020 2:54 PM CDT documented as of this encounter Miscellaneous Notes Telephone Encounter - Asif Schroeder RN - 11/05/2020 3:58 PM TRAFFIC SIGNAL MECHANIC Left message with patient that her heart monitor did not reveal any premature beats or arrhthymias. I told her that she has a follow with Klever on 11/16 which she can keep or if she does not feel the need for it can be canceled. I asked that she call back to discuss. FIC SIGNAL MECHANIC Telephone Encounter - Asif Schroeder RN - 11/05/2020 3:57 PM TRAFFIC SIGNAL MECHANIC ----- Message from Chadwick Jensen NP sent at 11/05/2020 2:43 PM TRAFFIC SIGNAL MECHANIC ----- Please update Kriss that her 30 day event monitor showed normal sinus rhythm with no evidence of A.Fib or other arrhythmias. Thank you! Klever Jensen APRN, TRANSPORT COMPANY MANAGER FIC SIGNAL MECHANIC documented in this encounter Plan of Treatment Not on filedocumented as of this encounter Visit Diagnoses Not on filedocumented in this encounter Care Teams Manager Civil Relationship Specialty Start Date End Date Yamila Dave, PCP - General Physician Forge Helper 04/14/20 RITIKA [facility] [address] [address] Rahul Ford Assigned Heart and 06/25/2011/01 MD [facility] V[facility] Provider [facility]ARE [address] [place] [id number] documented as of this encounter
--- OUTSIDE RECORDS SUMMARY | 2022-06-15 08:54 | XMS_ITS | Encounter Summary ---
:1960 Author Organization [place] Address [address] [facility] [place] [address] Care Team Providers Name Role Phone Yamila Dave PA-C Primary Care Provider Alo Steel PA-C Unavailable Reason for Referral Diagnostic Imaging Ultrasound (Routine) - Closed Specialty Diagnoses / Procedures Referred By Contact Refer red To Contact Radiology. Diagnoses Hydronephrosis Jose Angel Lucero MD Ultrasound [facility] Procedures US Renal Complete US Abdomen Limited [facility] [address] [employer] [address] [address] Fax: Referral ID Status Reason Start Date Expiration Date Visits Requ ested Visits Authorized [id number] Closed 11/24/2020 11/24/2021 1 1 Reason for Visit Diagnostic Imaging Ultrasound (Routine) - Closed Specialty Diagnoses / Procedures Referred By Contact Refer red To Contact Radiology. Diagnoses Hydronephrosis Jose Angel Lucero MD Ultrasound [facility] Procedures US Renal Complete US Abdomen Limited [facility] [address] [place] [address] [place] [address] Fax: Referral ID Status Reason Start Date Expiration Date Visits Requ ested Visits Authorized [id number] Closed 11/24/2020 11/24/2021 1 1 Encounter Details Date Type Department Care Team Description 11/30/2020 Hospital Encounter [facility] Jose Angel Lucero onephrosis [facility] MD Srinath [facility] UROLOGY [address] [place] [address] [place], [place] [phone] (Work) [phone] Social History Tobacco Use Types Packs/Day Years [...] / COVID-19? documented as of this encounter Medications at Time of Discharge Medication Sig Dispensed Refills Start Date End Date citalopram (CELEXA) 20 MG Take 20 mg by mouth 0 0 04/07/2020 tablet daily Doxylamine Succinate, Take by mouth as 0 Sleep, (SLEEP AID PO) needed folic acid (FOLVITE) 1 MG Take 1 mg by mouth 0 tablet daily ketorolac (TORADOL) 10 MG Take 1 tablet (10 10 tablet 0 tablet mg) by mouth every 6 hours as needed for pain Take as sparingly as possible. Avoid taking any other NSAIDS while using this medication. methotrexate 2.5 MG 15 mg every 7 days 0 01/09/20 20 tablet Multiple Vitamin Take by mouth daily 0 (MULTI-VITAMINS) TABS Vitamin D3 Take 2,000 Units by 0 (CHOLECALCIFEROL) 25 mcg mouth (1000 units) tablet ASPIRIN LOW DOSE 81 MG EC Take 81 mg by mouth 0 0 04/04/2020 03/21/2021 tablet daily atorvastatin (LIPITOR) 40 Take 40 mg by mouth 0 0 04/04/2020 03/21/2021 MG tablet daily clopidogrel (PLAVIX) 75 Take 75 mg by mouth 0 09/201902/22/2022 MG tablet daily Digestive Enzymes 0 022 (DIGESTIVE ENZYME PO) ENBREL SURECLICK 50 MG/ML 50 mg once a week 0 02/22/2022 autoinjector famotidine (PEPCID) 40 MG Take 40 mg by mouth 0 02/22/2022 tablet daily lactobacillus rhamnosus, Take 1 capsule by 0 02/22/2022 GG, (CULTURELL) capsule mouth daily losartan (COZAAR) 25 MG Take 1 tablet (25 90 tablet 3 08/0507/27/2021 tabletIndications: mg) by mouth daily Essential hypertension metoprolol tartrate Take 12.5 mg by 0 04/04/2020 03/21/2021 (LOPRESSOR) 25 MG tablet mouth 2 times daily ondansetron (ZOFRAN ODT) Take 1 tablet (4 mg) 15 tablet 0 0 09/17/2020 02/22/2022 4 MG ODT tab by mouth every 6 hours as needed for nausea or vomiting TURMERIC CURCUMIN PO Take by mouth daily 0 02/22/2022 documented as of this encounter Plan of Treatment Not on filedocumented as of this encounter Procedures Procedure Name Priority Date/Time Associated Diagnosis Comme nts US RENAL COMPLETE Routine 11/30/2020 1:14 PM Hydronephrosis Re sults for this CDT procedure are i n the results section. documented in this encounter Results US Renal Complete (11/30/2020 1:14 PM CDT) Anatomical Region Laterality Modality Abdomen/Pelvis Ultrasound Specimen (Source) Anatomical Location Collection Method / Collectio n Time Received Time / Laterality Volume Impressions 11/30/2020 2:23 PM CDT IMPRESSION: 1. ??Negative renal ultrasound. No hydro nephrosis demonstrated. TELMA PATTERSON MD Narrative 11/30/2020 2:23 PM CDT US RENAL COMPLETE 11/30/2020 1:14 PM CLINICAL HISTORY: Hydronephrosis TECHNIQUE: Routine Bilateral Renal and B ladder Ultrasound. COMPARISON: None. FINDINGS: RIGHT KIDNEY: 11.1 x 5.3 x 5.2 cm. Margaret l without hydronephrosis or masses. LEFT KIDNEY: 11.5 x 5.2 x 4.9 cm. Normal without hydronephrosis or masses. BLADDER: Unremarkable given its level of distention. Procedure Note Telma Patterson MD - 11/30/2020Fo rmatting of this note might be different from the original. US RENAL COMPLETE 11/30/2020 1:14 PM CLINICAL HISTORY: Hydronephrosis TECHNIQUE: Routine Bilateral Renal and B ladder Ultrasound. COMPARISON: None. FINDINGS: RIGHT KIDNEY: 11.1 x 5.3 x 5.2 cm. Margaret l without hydronephrosis or masses. LEFT KIDNEY: 11.5 x 5.2 x 4.9 cm. Normal without hydronephrosis or masses. BLADDER: Unremarkable given its level of distention. IMPRESSION: 1. Negative renal ultrasound. No hydrone phrosis demonstrated. TELMA PATTERSON MD Jose Angel Lucero MD IMG US ORDERABLES documented in this encounter Visit Diagnoses Diagnosis Hydronephrosis documented in this encounter Care Teams Director Of Home Care Hospice Relationship Specialty Start Date End Date TenzinYamila PCP - General Physician Coin Teller 04/14/20 RITIKA Mojica [facility] [address] [place] [address] Alo Steel, Assigned Heart and 11/17/20 RITIKA Vascular Provider [address] [place] [address] documented as of this encounter
--- OUTSIDE RECORDS SUMMARY | 2022-06-15 08:54 | XMS_ITS | Encounter Summary ---
:1960 Author Organization [facility] Address [address] [facility] [place] [address] Care Team Providers Name Role Phone Yamila Dave PA-C Primary Care Provider [phone] Alo Steel PA-C Unavailable Rahul Ford MD Unavailable [phone] Encounter Details Date Type Department Care Team Description 12/10/2020 Documentation Only INTERFACED REPORT Unknown, Provider Social History Tobacco Use Types Packs/Day Years [...] on filedocumented in this encounter Care Teams Amplifier Mechanic Relationship Specialty Start Date End Date Yamila Dave, PCP - General Physician Shipping Packer 04/14/20 [facility] [place] [address] [place] [address] Alo Steel PA-C Assigned Heart and 11/17/20 01/22/21 [id number] [facility] Vascular Provider [place]AL [id number] Rahul Ford Assigned Heart and 01/23/21 MD [place] Vascular Provider [facility] [id number] [id number] documented as of this encounter
--- OUTSIDE RECORDS SUMMARY | 2022-06-15 08:54 | XMS_ITS | Encounter Summary ---
:1960 Author Organization [place] Address [address] [facility] [place] [address] Care Team Providers Name Role Phone Yamila Dave PA-C Primary Care Provider Alo Steel PA-C Unavailable Encounter Details Date Type Department Care Team Description 01/04/2021 Emergency [facility] Malick Ramirez MD Fever in adult; [facility] Emergency [facility] Acu te nonintractable headache, unspecified headache type; Dept PA Pneumonia of right lower lobe due to inf ectious organism; [address] [place] Person under investigation f or COVID-19 [facility] [phone] [place] [address] (Wo rk) Social History Tobacco Use Types Packs/Day Years Used Date Smoking Tobacco: Never Smokeless Tobacco: Never Alcohol Use Standard Drinks/Week Comments Yes 0 (1 standard drink = 0.6 oz pure alcoho l) rare occasion Sex Assigned at Date Recorded Female 04/22/2020 2:54 PM CDT COVID-19 Exposure Response Date Recorded In the last month, have you been in contact with Yes 01/04/2021 5:39 PM CDT someone who was confirmed or suspected to have Coronavirus / COVID-19? documented as of this encounter Last Filed Vital Signs Vital Sign Reading Time Taken Comments Blood Pressure 111/68 01/04/2021 9:20 PM CDT Pulse 69 01/04/2021 9:15 PM CDT Temperature 36.7 ??C (98 ??F) 01/04/2021 8:30 PM CDT Respiratory Rate 20 01/04/2021 5:37 PM CDT Oxygen Saturation 93% 01/04/2021 9:20 PM CDT Inhaled Oxygen Concentration - - Weight 81.6 kg (180 lb) 01/04/2021 5:37 PM CDT Height 160 cm (5' 3) 01/04/2021 5:37 PM CDT Body Mass Index 31.89 01/04/2021 5:37 PM CDT documented in this encounter Discharge Instructions AttachmentsThe following attachments cannot be sent through Care Everywhere. Adult, Pneumonia (Bahraini)Febrile Illness, Uncertain Cause (Adult) (Bahraini) documented in this encounter Medications at Time of [...] (CHOLECALCIFEROL) 25 mcg mouth (1000 units) tablet amoxicillin-clavulanate Take 1 tablet by 14 tablet 0 202001/11/2021 (AUGMENTIN) 875-125 MG mouth 2 times daily tablet for 7 days azithromycin (ZITHROMAX Two tablets on the 6 tablet 0 12/202001/09/2021 Z-PIO) 250 MG tablet first day, then one tablet daily for the next 4 days ASPIRIN LOW DOSE 81 MG EC Take [...] 0 02/22/2022 documented as of this encounter ED Notes Melodie Zamarripa RN - 01/04/2021 5:35 PM CDT Colonoscopy and endoscopy today at [facility]. Having chills and headache this evening with temp of102. Pt had COVID and had both vaccines- sister saw her this weekend and sister tested positive for COVID today. Malick Ramirez MD - 01/04/2021 5:24 PM CDT History Chief Complaint: Fever HPI Kriss Song is a 60 year old female with history of CAD, hypertension, and NSTEMI who presentswith a fever. The patient states she saw her sister 2 days ago. Her sister is asymptomatic but tested positive for COVID today after one of her students tested positive. Today the patient had an Endoscopy and colonoscopy at a [facility] this morning, and developed fever and chills this afternoon. She also notes a mild headache. States she just received the second dose of COVID vaccine 1 weekago, and had COVID in June. She denies any shortness of breath, chest pain, cough, abdominal pain, nausea, vomiting, or diarrhea. Notes a mild sore throat but states this could be from the endoscopy. Took Excedrin migraine at 1400. Review of Systems Constitutional: Positive for chills and fever. HENT: Positive for sore throat. Respiratory: Negative for cough and shortness of breath. Cardiovascular: Negative for chest pain. Gastrointestinal: Negative for abdominal pain, diarrhea, nausea and vomiting. Neurological: Positive for headaches. All other systems reviewed and are negative. Allergies: Sulfa Drugs Paroxetine Sertraline Bupropion Medications: Gabapentin Toprol Percocet Protonix Celexa Pepcid Cozaar Rheumatrex Aspirin 81 mg Lipitor Lopressor Past Medical History: CAD Hypertension NSTEMI GERD Obesity CADENCE Iron deficiency anemia Anxiety Hyperlipidemia Hypothyroidism Kidney stone Ovarian cyst Past Surgical History: T & A Endoscopy Colonoscopy Breast lumpectomy Coronary angiogram Endometrial ablation Right lateral epicondylitis Tubal ligation Family History: COPD Heart failure AAA Prostate cancer Social History: Patient presents alone. Patient moved here from [place]. Physical Exam Patient Vitals for the past 24 hrs: BP Temp Temp src Pulse Resp SpO2 Height Weight 01/04/212119 111/68 -- -- -- -- 93 % -- -- 01/04/212114 111/68 -- -- 69 -- 92 % -- -- 01/04/212099 106/64 -- -- 72 -- 93 % -- -- 01/04/212044 104/72 -- -- 54 -- 95 % -- -- 01/04/212029 107/62 98 ??F (36.7 ??C) Temporal 76 -- 94 % -- -- 01/04/212014 114/64 -- -- 81 -- 96 % -- -- 01/04/211999 108/67 -- -- 83 -- 94 % -- -- 01/04/211944 112/55 -- -- 76 -- 94 % -- -- 01/04/211933 126/61 -- -- 82 -- -- -- -- 01/04/211929 126/61 -- -- -- -- 95 % -- -- 01/04/21 1737 (!) 127/98 102.1 ??F (38.9 ??C) Oral 86 20 98 % 1.6 m (5' 3) 81.6 kg (180 lb) Physical Exam General: Alert, appears well-developed and well-nourished. Cooperative. In mild distress HEENT: Head: Atraumatic Ears: External ears are normal Mouth/Throat: Oropharynx is without erythema or exudate and mucous membranes are moist. Eyes: Conjunctivae normal and EOM are normal. No scleral icterus. Pupils are equal, round, and reactive to light. Neck: Normal range of motion. Neck supple. No meningimsus CV: Normal rate, regular rhythm, normal heart sounds and radial pulses are 2+ and symmetric. No murmur. Resp: Breath sounds are clear bilaterally Non-labored, no retractions or accessory muscle use GI: Abdomen is soft, no distension, no tenderness. No rebound or guarding. No CVA tenderness bilaterally MS: Normal range of motion. No edema. Normal strength in all 4 extremities. Back atraumatic. No midline cervical, thoracic, or lumbar tenderness Skin: Warm and dry. No rash or lesions noted. Neuro: Alert. Normal strength. GCS: 15 Psych: Normal mood and affect. Emergency Department Course ECG ECG taken at 1951, ECG read at 2046 NSR, Possible inferior infarct, age undetermined No significant change as compared to prior, dated 09/13/20. Rate 78 bpm. AL interval 170 ms. QRS duration 100 ms. QT/QTc 406/462 ms. P-R-T axes 31 33 25. Imaging: XR Chest Port 1 View: Hazy ill defined infiltrate right lung base laterally may represent pneumonia, COVID-19. Normal heart size and pulmonary vascularity. Remainder negative, as per radiology. Laboratory: CBC: WBC: 14.1 (H), HGB: 13.3, PLT: 158 BMP: Glucose 1090 (H), o/w WNL (Creatinine: 0.78) Troponin (Collected 1912): <0.015 Lactic acid (Resulted 1938): 1.3 UA: Mucous: Present, o/w Negative Symptomatic COVID-19 PCR: Negative Emergency Department Course: Reviewed: I reviewed the patient's nursing notes, vitals, past medical records, Care Everywhere. Assessments: 1899 I evaluated the patient and performed an exam as above. 2054 I updated the patient on results and discussed plan of care. Interventions: 1914 Ibuprofen, 600 mg, Oral NS, 1 L, IV 1915 Tylenol, 500 mg, Oral Disposition: The patient was discharged to home. Impression & Plan [facility] Diagnoses: None Medical Decision Making: Patient is a 60-year-old female who presents after an outpatient endoscopy and colonoscopy earlier today with fever and generalized body aches and headache. Reassuringly, a broad infectious work-up is relatively unremarkable, except for mild leukocytosis as well as a chest x-ray with a faint ill-defined opacity in the right lower lung. She does not have significant cough or shortness of breath at this time, but concern this could be either a potential early bacterial pneumonia in the right lower lobe versus potential viral pneumonia in the setting of COVID-19. Reassuringly, patient is partially immunized for COVID-19 and did receive her second vaccination within the last 1 week. Fortunately her Covid is negative today but she did have an exposure to her sister who had a positive Covid test withinthe last 48 hours. I would recommend a repeat Covid test within the next 48 hours to ensure that this is not a false negative Covid test tonight. Continue with oral antibiotics in case this were to represent a possible developing bacterial pneumonia and return to the emergency department with worsening shortness of breath, cough, intractable fevers to Tylenol ibuprofen or any other concerning symptoms. Patient reassured by her work-up here this evening and had all questions answered before discharge. After return precautions understood, discharged home. Covid-19 Kriss Song was evaluated during a global COVID-19 pandemic, which necessitated consideration that the patient might be at risk for infection with the SARS-CoV-2 virus that causes COVID-19. Applicable protocols for evaluation were followed during the patient's care. COVID-19 was considered as part of the patient's evaluation. The plan for testing is: a test was obtained during this visit. Diagnosis: ICD-10-CM 1. Fever in adult R50.9 CBC with platelets differential Basic metabolic panel Lactic acid whole blood Symptomatic SARS-CoV-2 COVID-19 Virus (Coronavirus) by PCR UA with Microscopic Troponin I Troponin I CANCELED: Troponin I (now) 2. Acute nonintractable headache, unspecified headache type R51.9 3. Pneumonia of right lower lobe due to infectious organism J18.9 4. Person under investigation for COVID-19 Z20.822 Discharge Medications: Discharge Medication List as of 01/04/2021 9:27 PM START taking these medications Details amoxicillin-clavulanate (AUGMENTIN) 875-125 MG tablet Take 1 tablet by mouth 2 times daily for 7 days, Disp-14 tablet, R-0, Local Print azithromycin (ZITHROMAX Z-PIO) 250 MG tablet Two tablets on the first day, then one tablet daily forthe next 4 days, Disp-6 tablet, R-0, Local Print Scribe Disclosure: I, Joanne Franklin, am serving as a scribe at 7:08 PM on 01/04/2021 to document services personally performed by Malick Ramirez MD based on my observations and the provider's statements to me. Malick Ramirez MD 01/04/212320 documented in this encounter Plan of Treatment Not on filedocumented as of this encounter Procedures Procedure Name Priority Date/Time Associated Comments Diagnosis XR CHEST PORT 1 VIEW STAT 01/04/2021 8:06 PM R esults for this CDT procedure are i n the results section. EKG 12-LEAD, TRACING STAT 01/04/2021 7:52 PM R esults for this ONLY CDT procedure are i n the results section. SARS-COV-2 (COVID-19) STAT 01/04/2021 7:13 PM Fever in adul t Results for this VIRUS RT-PCR CDT procedure are i n the results section. CBC WITH PLATELETS & STAT 01/04/2021 7:13 PM Fever in adult Results for this DIFFERENTIAL CDT procedure are i n the results section. TROPONIN I Routine 01/04/2021 7:13 PM Fever in adult Results for this CDT procedure are i n the results section. ROUTINE UA WITH STAT 01/04/2021 7:13 PM Fever in adult Resu lts for this MICROSCOPIC CDT procedure are i n the results section. LACTIC ACID WHOLE STAT 01/04/2021 7:13 PM Fever in adult Re sults for this BLOOD CDT procedure are i n the results section. BASIC METABOLIC PANEL STAT 01/04/2021 7:13 PM Fever in adul t Results for this CDT procedure are i n the results section. documented in this encounter Results XR Chest Port 1 View (01/04/2021 8:06 PM CDT) Anatomical Region Laterality Modality Chest Digital Radiography Specimen (Source) Anatomical Collection Method Collection Time Re ceived Time Location / / Volume Laterality 01/04/2021 8:04 PM CDT Impressions 01/04/2021 8:16 PM CDT IMPRESSION: Hazy ill defined infiltrate right lung base laterally may represent pneumonia, COVID-19. Normal heart size a nd pulmonary vascularity. Remainder negative. Narrative 01/04/2021 8:16 PM CDT EXAM: XR CHEST PORT 1 VIEW LOCATION: [facility] DATE/TIME: 01/04/2021 8:04 PM INDICATION: Fever and headache with COVI D's exposure. Evaluate for pneumonia. COMPARISON: None. Procedure Note Rojas Carlson MD - 01/04/2021Formatt ing of this note might be different from the original. EXAM: XR CHEST PORT 1 VIEW LOCATION: [facility] DATE/TIME: 01/04/2021 8:04 PM INDICATION: Fever and headache with COVI D's exposure. Evaluate for pneumonia. COMPARISON: None. IMPRESSION: Hazy ill defined infiltrate right lung base laterally may represent pneumonia, COVID-19. Normal heart size and pulmonary vascularity. Remainder negative. Malick Ramirez MD IMG DIAGNOSTIC IMAGING ORDER IRWIN EKG 12-lead, tracing only (01/04/2021 7:52 PM CDT) [facility] Method Time Signature Interpretation ECG Click View RADIOLOGY Image link RESULTS to view waveform and result Specimen (Source) Anatomical Collection Method Collection Time Re ceived Time Location / / Volume Laterality 01/04/2021 7:52 PM CDT Malick Ramirez MD ECG ORDERABLES Performing Organization Address City/State/ZIP Code Phon e Number RADIOLOGY RESULTS Troponin I (01/04/2021 7:13 PM CDT) athologist Signature Troponin I ES <0.015 0.000 - 01/04/2021 [place] 0.045 ug/L 8:15 PM CDT [facility] Comment: The 99th percentile for upper reference range is 0.045 ug/L. ??Troponin values in the range of 0.045 - 0.120 ug/L may b e associated with risks of adverse clinical events. Specimen Anatomical Collection Method Collection Time Receive d Time (Source) Location / / Volume Laterality 01/04/2021 7:13 PM 7:32 CDT PM CDT Pranav Doe MD LAB - BLOOD ORDERABLES Performing Organization Address City/State/ZIP Code Phon e Number [place] [address] [place], [place] [address] [phone] [facility] [address] [phone] (ABNORMAL) UA with Microscopic (01/04/2021 7:13 PM CDT) [facility] Method Time Signature Color Urine Light Yellow 01/04/2021 [facility] 7:57 PM [facility] Appearance Urine Clear 01/04/2021 [facility] 7:57 PM [facility] Glucose Urine Negative NEG^Negat 01/04/2021 [place] mg/dL 7:57 PM [facility] Bilirubin Urine Negative NEG^Negat 01/04/2021 [place]a 7:57 PM [facility] Ketones Urine Negative NEG^Negat 01/04/2021 [place] mg/dL 7:57 PM [facility] Specific [place] 1.015 1.003 - 01/04/2021 [place] Urine 1.035 7:57 PM [facility] Blood Urine Negative NEG^Negat 01/04/2021 [place] nora 7:57 PM [facility] pH Urine 6.0 5.0 - 7.0 01/04/2021 [place] pH 7:57 PM [facility] Protein Albumin Negative NEG^Negat 01/04/2021 [place] Urine nora mg/dL 7:57 PM [facility] Urobilinogen Normal 0.0 - 2.0 01/04/2021 [place] mg/dL mg/dL 7:57 PM [facility] Nitrite Urine Negative NEG^Negat 01/04/2021 [place] nora 7:57 PM [facility] Leukocyte Negative NEG^Negat 01/04/2021 [place] Esterase Urine nora 7:57 PM [facility] Source Midstream 01/04/2021 [place] Urine 7:14 PM [facility] WBC Urine 1 0 - 5 01/04/2021 [place] /HPF 7:57 PM [facility] RBC Urine <1 0 - 2 01/04/2021 [place] /HPF 7:57 PM [facility] Squamous <1 0 - 1 01/04/2021 [place] Epithelial /HPF /HPF 7:57 PM [facility] Mucous Urine Present (A) NEG^Negat 01/04/2021 [place] nora /LPF 7:57 PM [facility] Specimen (Source) Anatomical Collection Method Collection Time Re ceived Time Location / / Volume Laterality Examination of 01/04/2021 7:13 01/04/2021 7:42 midstream urine PM CDT PM CDT specimen (procedure) Malick Ramirez MD LAB - URINE ORDERABLES Performing Organization Address City/State/ZIP Code Phon e Number [place] [address], [place] [address] [place] [address] [place] [address] [place] [phone] Symptomatic SARS-CoV-2 COVID-19 Virus (Coronavirus) by PCR (01/04/2021 7:13 PM CDT) [facility] Method Time Signature SARS-CoV-2 Nasopharyngeal 01/04/2021 [place] Virus 7:14 PM [facility] Source SARS-CoV-2 NEGATIVE 01/04/2021 [place] PCR Result 8:44 PM [facility] Comment: SARS-CoV2 (COVID-19) RNA not de tected, presumed negative. SARS-CoV-2 PCR Comment (Note) 01/04/2021 8:44 P M T [facility] Comment: Testing was performed using the francisca SA RS-CoV-2 & Influenza A/B Assay on the francisca Carey System. This test should be ordered for the dete ction of SARS-COV-2 in individuals who meet SARS-CoV-2 clinical and/or epidemi ological criteria. Test performance is unknown in asymptomatic patients. This test is for in vitro diagnostic use under the FDA EUA for laboratories certified under CLIA to perform moderate and/or high complexity testing. This test has not been FDA cleared or approve d. A negative test does not rule out the pr esence of PCR inhibitors in the specimen or target RNA in concentration below the limit of detection for the assay. The possibility of a false negati ve should be considered if the patient's recent exposure or clinical pr esentation suggests COVID-19. [facility] are certi fied under the Clinical Laboratory Improvement Amendments of 1988 (CLIA-88) as qualified to perform moderate and/or high complexity laboratory testin g. Specimen (Source) Anatomical Collection Method Collection Time Re ceived Time Location / / Volume Laterality Specimen from 01/04/2021 7:13 01/04/2021 nasopharyngeal PM CDT 7:32 PM CDT structure (specimen) Malick Ramirez MD LAB - MICRO GENERAL ORDERABL ES Performing Organization Address City/[facility] Phon e [place] [address] [place] [address] [place] [address] [place] [address], [facility] [phone] Lactic acid whole blood (01/04/2021 7:13 PM CDT) athologist Signature Lactic Acid 1.3 0.7 - 2.0 01/04/2021 [place] mmol/L 7:39 PM CDT [facility] Specimen Anatomical Collection Method Collection Time Receive d Time (Source) Location / / Volume Laterality Blood 01/04/2021 7:13 PM 7:33 CDT PM CDT Malick Ramirez MD LAB - BLOOD ORDERABLES Performing Organization Address [facility] Phon e [facility] [address] [place] [address] [place] [address] [address] [place] [address], [facility] [phone] (ABNORMAL) Basic metabolic panel (01/04/2021 7:13 PM CDT) athologist Signature Sodium 137 133 - 144 01/04/2021 [place] mmol/L 7:48 PM [facility] Potassium 3.8 3.4 - 5.3 01/04/2021 [place] mmol/L 7:48 PM [facility] Chloride 105 94 - 109 01/04/2021 [place] mmol/L 7:48 PM [facility] Carbon Dioxide 26 20 - 32 01/04/2021 [place] mmol/L 7:56 PM [facility] Anion Gap 6 3 - 14 01/04/2021 [place] mmol/L 7:56 PM [facility] Glucose 109 (H) 70 - 99 01/04/2021 [place] mg/dL 7:56 PM [facility] Urea Nitrogen 15 7 - 30 01/04/2021 [place] mg/dL 7:56 PM [facility] Creatinine 0.78 0.52 - 01/04/2021 [place] 1.04 mg/dL 7:56 PM [facility] GFR Estimate 83 >60 01/04/2021 [place] mL/min/{1. 7:56 PM [facility] 73_m2} [facility] Comment: Non GFR Calc Starting 08/20/2018, serum creatinine ba sed estimated GFR (eGFR) will be calculated using the Chronic Kidney Dise [facility] Epidemiology Collaboration (CKD-EPI) equation. GFR Estimate If >90 >60 mL/min/{1.73_m2} 01/04/2021 7: 56 PM [facility] Comment: GFR Calc Starting 08/20/2018, serum creatinine ba sed estimated GFR (eGFR) will be calculated using the Chronic Kidney Dise [facility] Epidemiology Collaboration (CKD-EPI) equation. Calcium 8.8 8.5 - 10.1 mg/dL 01/04/2021 7:56 PM [facility] Specimen Anatomical Collection Method Collection Time Receive d Time (Source) Location / / Volume Laterality Blood 01/04/2021 7:13 PM 7:32 CDT PM CDT Malick Ramirez MD LAB - BLOOD ORDERABLES Performing Organization Address City/State/ZIP Code Phon e Number [place] [address] [place], [place] [address] [facility] [address] [phone] (ABNORMAL) CBC with platelets differential (01/04/2021 7:13 PM [facility] Method Time Signature WBC 14.1 (H) 4.0 - 01/04/2021 [facility] 11.0 7:36 PM [facility] 10e9/L [facility] RBC Count 4.69 3.8 - 5.2 01/04/2021 [facility] 10e12/L 7:36 PM [facility] Hemoglobin 13.3 11.7 - 01/04/2021 [facility] 15.7 g/dL 7:36 PM [facility] Hematocrit 39.7 35.0 - 01/04/2021 [facility] 47.0 % 7:36 PM [facility] MCV 85 78 - 100 01/04/2021 [facility] fl 7:36 PM [facility] MCH 28.4 26.5 - 01/04/2021 [facility] 33.0 pg 7:36 PM [facility] MCHC 33.5 31.5 - 01/04/2021 [facility] 36.5 g/dL 7:36 PM [facility] RDW 13.0 10.0 - 01/04/2021 [facility] 15.0 % 7:36 PM [facility] Platelet Count 158 150 - 450 01/04/2021 [facility] 10e9/L 7:36 PM [facility] Diff Method Automated 01/04/2021 [facility] Method 7:36 PM [facility] % Neutrophils 89.8 % 01/04/2021 [facility] 7:36 PM [facility] % Lymphocytes 2.8 % 01/04/2021 [facility] 7:36 PM [facility] % Monocytes 6.9 % 01/04/2021 [facility] 7:36 PM [facility] % Eosinophils 0.0 % 01/04/2021 [facility] 7:36 PM [facility] % Basophils 0.1 % 01/04/2021 [facility] 7:36 PM [facility] % Immature 0.4 % 01/04/2021 [facility] Granulocytes 7:36 PM [facility] Nucleated RBCs 0 0 /100 01/04/2021 [place] 7:36 PM [facility] Absolute 12.7 (H) 1.6 - 8.3 01/04/2021 [place] Neutrophil 10e9/L 7:36 PM [facility] Absolute 0.4 (L) 0.8 - 5.3 01/04/2021 [place] Lymphocytes 10e9/L 7:36 PM [facility] Absolute 1.0 0.0 - 1.3 01/04/2021 [place] Monocytes 10e9/L 7:36 PM [facility] Absolute 0.0 0.0 - 0.7 01/04/2021 [place] Eosinophils 10e9/L 7:36 PM [facility] Absolute 0.0 0.0 - 0.2 01/04/2021 [place] Basophils 10e9/L 7:36 PM [facility] Abs Immature 0.1 0 - 0.4 01/04/2021 [place] Granulocytes 10e9/L 7:36 PM [facility] Absolute 0.0 01/04/2021 [place] Nucleated RBC 7:36 PM [facility] Specimen Anatomical Collection Method Collection Time Receive d Time (Source) Location / / Volume Laterality Blood 01/04/2021 7:13 PM 7:32 CDT PM CDT Malick Ramirez MD LAB - BLOOD ORDERABLES Performing Organization Address City/State/ZIP Code Phon e Number [place] [address] [phone] documented in this encounter Visit Diagnoses Diagnosis Fever in adult Acute nonintractable headache, unspecifi ed headache type Pneumonia of right lower lobe due to inf ectious organism Person under investigation for COVID-19 documented in this encounter Administered Medications Inactive Administered Medications - up to 3 most recent administrations Medication Order MAR Action Action Date Dose Rate Site 0.9% sodium chloride BOLUS New Bag 01/04/2021 7:15 PM CDT 1,000 mLs 1000 mL/hr Intravenous, 1,000 mL, ONCE, at 1,000 mL/hr, Administer over 1 Hours, On Sun01/04/21 at 1740, For 1 dose acetaminophen (TYLENOL) tablet 500 mg Given 01/04/2021 7:16 PM CDT 500 mg 500 mg, Oral, ONCE, On 01/04/21 at 1740, For 1 dose, Maximum acetaminophen dose from all sources = 75 mg/kg/day not to exceed 4 gram ibuprofen (ADVIL/MOTRIN) tablet 600 mg Given 01/04/2021 7:15 PM CDT 600 mg 600 mg, Oral, ONCE, On Tu01/04/21 at 1740, For 1 dose, Give with food. documented in this encounter Active and Recently Administered Medications Times are shown in CDT. Scheduled Medication Order 01/02/2021 01/03/2021 01/04/2021 0.9% sodium chloride BOLUS (COMPLETED) 1914 (New Bag - Provider: Yamila Medina, ANUM)2022 (Stopped - Provider: Yamila Medina RN) Intravenous, 1,000 mL, ONCE, at 1,000 mL /hr, Administer over 1 Hours, Sun01/04/21 at 1740, For 1 dose acetaminophen (TYLENOL) tablet 500 mg (COMPLETED) 1915 (Given - Provider: Yamila Medina RN) 500 mg, Oral, ONCE, 01/04/21 at 1740, For 1 dose, Maximum acetaminophen dose from all sources = 75 mg/kg/day not to exceed 4 gram ibuprofen (ADVIL/MOTRIN) tablet 600 mg (COMPLETED) 1914 (Given - Provider: Yamila Medina, ANUM) 600 mg, Oral, ONCE, 01/04/21 at 1740, For 1 dose, Give with fo od. documented in this encounter Care Teams Ged Teacher Relationship Specialty Start Date End Date Yamila Dave PCP - General Physician Vegetable Vendor 04/14/20 RITIKA Mojica [facility] [address] [place] [address] Alo Steel, Assigned Heart and 11/17/20 RITIKA Vascular Provider [address] [address] documented as of this encounter
--- OUTSIDE RECORDS SUMMARY | 2022-06-15 08:54 | XMS_ITS | Encounter Summary ---
:1960 Author Organization [place] Address [address] [place] [address]. [place] [address] Care Team Providers Name Role Phone Yamila Dave PA-C Primary Care Provider Alo Steel PA-C Unavailable Encounter Details Date Type Department Care Team Description 11/24/2020 Medical Correspondence [facility] Scan, LAB ORDER [facility] Non-Provider UROLOGY Srvcs [address] [place] [address] Social History Tobacco Use Types Packs/Day Years [...] on filedocumented in this encounter Care Teams Nicu Rn Relationship Specialty Start Date End Date Yamila Dave PCP - General Physician Top Trimmer 04/14/20 RITIKA Mojica [facility] [address] [place] [address] Alo Steel, Assigned Heart and 11/17/20 [facility] Vascular Provider [address] [place] [address] documented as of this encounter
--- OUTSIDE RECORDS SUMMARY | 2022-06-15 08:54 | XMS_ITS | Encounter Summary ---
:1960 Author Organization [place] Address [address] [place] [address] Care Team Providers Name Role Phone Yamila Dave PA-C Primary Care Provider [phone] Alo Steel PA-C Unavailable Encounter Details Date Type Department Care Team Description 12/09/2020 [facility] [address] [place] [address] Social History Tobacco Use Types Packs/Day Years [...] on filedocumented in this encounter Care Teams Clothing Designer Relationship Specialty Start Date End Date Yamila Dave PCP - General Physician Movie Machine Operator 04/14/20 RITIKA Mojica [facility] [address] [place] [address] Alo Steel, Assigned Heart and 11/17/20 RITIKA Vascular Provider [address] [place] [address] documented as of this encounter
--- OUTSIDE RECORDS SUMMARY | 2022-06-15 08:54 | XMS_ITS | Encounter Summary ---
:1960 Author Organization [place] Address [address] [facility] [place] [address] Care Team Providers Name Role Phone Yamila Dave PA-C Primary Care Provider Alo Steel PA-C Unavailable Encounter Details Date Type Department Care Team Description 01/04/2021 Travel Social History Tobacco Use Types Packs/Day [...] on filedocumented in this encounter Care Teams Drug Clerk Relationship Specialty Start Date End Date Yamila Dave PCP - General Physician Substance Abuse Counselor 04/14/20 RITIKA Mojica [facility] [address] [place] [address] Alo Steel, Assigned Heart and 11/17/20 RITIKA Vascular Provider [address] [place], [place] [address] documented as of this encounter
--- OUTSIDE RECORDS SUMMARY | 2022-06-15 08:54 | XMS_ITS | Encounter Summary ---
:1960 Author Organization [place] Address [address] [place] [address]. [place] [address] Care Team Providers Name Role Phone Yamila Dave PA-C Primary Care Provider [phone] Rahul Ford MD Unavailable [phone] Encounter Details Date Type Department Care Team Description 10/29/2020 Telephone [facility] Adamaris Tan RN Heart Care-[address] [place] [address] Social History Tobacco Use Types Packs/Day Years Used Date Smoking Tobacco: Never Smokeless Tobacco: Never Alcohol Use Standard Drinks/Week Comments Yes 0 (1 standard drink = 0.6 oz pure alcoho l) rare occasion Sex Assigned at Date Recorded Female 04/22/2020 2:54 PM CDT documented as of this encounter Miscellaneous Notes Telephone Encounter - Adamaris Tan RN - 10/29/2020 3:[address] Lucero, relayed Dr. Ford' recommendations. Dr. Lucero will stop the plavix for one week prior but will likely continue ASA w/o stopping. Ana ROWAN, BSN 10/29/20 3:43 PM RAM DEVELOPMENT MANAGER Telephone Encounter - Rahul Ford MD - 10/29/2020 3:14 PM PROGRAM DEVELOPMENT MANAGER OK to hold Plavix for one week and aspirin for three days. Rahul Ford MD Cardiology - [facility] Heart Pager: [phone] Text Page October 29, 2020 RAM DEVELOPMENT MANAGER Telephone Encounter - Adamaris Tan RN - 10/29/2020 2:39 PM CST Received vm from Dr. Jose Angel Lucero, Urologist at [facility] wanting to know if he would be able to stop plavix and/or ASA prior to surgery. Callback# [phone]. Chart review in Care Everywhere, Dr. Lucero noted: Assessment and Plan . Kidney stones - reviewed CT scan (10/06/20) and KUB images (seen on KUB) - Left 6 mm UPJ stone - minimal movement - Right stones are small (2 mm) - currently asymptomatic - continue conservative management - fluids and pain meds as need - did tolerate Flomax (incontinence) - Follow-up in 2-3 weeks with KUB - if the stone has not passed - plan Left ureteroscopy (on Plavix and ASA) - will need 24 Hr urine study in near future to assess risk factors for stone formation ??? XR, kidney + ureter + bladder - Last cardiology visit was 09/13/20 w/ Klever Jensen CNP (Primary database security administrator is Dr. Ford) for follow-up of CAD, recent coronary angiogram in 04/2020 showing severe stenosis of small OM3 branch whichis medically managed. Pt reported intermittent atypical chest discomfort for the last month as well as some palpitations w/ unclear etiology. Pt has hx sleep apnea (intolerant to CPAP). Klever ordered Lexiscan and 30 day event monitor. F/u w/ Dr. Ford In 2 months. Continued ASA, plavix, statin and BB. - 09/16/20 Pt had Lexiscan stress test, abnormal, showed mild scar from previous NSTEMI, no arrhythmias. - 09/20/20 Event monitor (in place), as of now pt has had sinus rhythm and sinus jerrell. - 09/17/20 ED visit in [facility] for gross hematuria, dx left ureteral calculus - follow-up is scheduled 11/16/20 w/ Klever Jensen CNP. Routing to Klever Jensen CNP & Dr. Ford - ok to hold plavix and/or ASA prior to potential leftureteroscopy per urology? Ana RN, BSN 10/29/20 2:46 PM RAM DEVELOPMENT MANAGER documented in this encounter Plan of Treatment Not on filedocumented as of this encounter Visit Diagnoses Not on filedocumented in this encounter Care Teams Tare Worker Relationship Specialty Start Date End Date Yamila Dave, PCP - General Physician Lesson Instructor 04/14/[address] [facility] [address] [place] [address] Rahul Ford Assigned Heart and 06/25/2011/01 MD [place] Vascular Provider [facility] HEART CARE [address] [facility] [place] [address] documented as of this encounter
--- OUTSIDE RECORDS SUMMARY | 2022-06-15 08:55 | XMS_ITS | Encounter Summary ---
:1960 Author Organization [place] Address [address] [facility] [place] [address] Care Team Providers Name Role Phone Yamila Dave PA-C Primary Care Provider [phone] Rahul Ford MD Unavailable [phone] Reason for Referral CV Testing (Routine) - Closed Specialty Diagnoses / Procedures Referred By Contact Refer red To Contact Cardiology Diagnoses Palpitations Obstructive sleep apnea syndrome Chadwick Jensen NP Rh Cv Cardiac Svc [facility] Procedures Cardiac Event Monitor Adult Pediatric [address] [address] [place] [address] [address] [place] [address] Phone: Fax: Referral ID Status Reason Start Date Expiration Date Visits Requ ested Visits Authorized [id number] Closed 09/13/2020 09/13/2021 1 1 ORK OPERATIONS SPECIALIST Reason for Visit CV Testing (Routine) - Closed Specialty Diagnoses / Procedures Referred By Contact Refer red To Contact Cardiology Diagnoses Palpitations Obstructive sleep apnea syndrome Chadwick Jensen NP Rh Cv Cardiac Svc [facility] Procedures Cardiac Event Monitor Adult Pediatric [address] [address] [place] [address] [address] [place] [address] Phone: Fax: Referral ID Status Reason Start Date Expiration Date Visits Requ ested Visits Authorized [id number] Closed 09/13/2020 09/13/2021 1 1 Encounter Details Date Type Department Care Team Description 09/20/[address] [facility] [place], Palp itations; [facility] LATOSHA Genao Obstructive sleep apnea syndrome Heart Care [address] [facility] [address] [place] [address] [place] [address] [place], [place] [phone] [address] (Work) [phone] Social History Tobacco Use Types Packs/Day Years Used Date Smoking Tobacco: Never Smokeless Tobacco: Never Alcohol Use Standard Drinks/Week Comments Yes 0 (1 standard drink = 0.6 oz pure alcoho l) rare occasion Sex Assigned at Date Recorded Female 04/22/2020 2:54 PM CDT COVID-19 Exposure Response Date Recorded In the last month, have you been in contact with No / Unsure 09/20/2020 7:44 AM NETWORK OPERATIONS SPECIALIST someone who was confirmed or suspected to [...] 0 02/22/2022 documented as of this encounter Progress Notes Landon Cotton - 09/20/2020 8:26 AM CST Placed a 30 day cardiac event monitor. ORK OPERATIONS SPECIALIST documented in this encounter Plan of Treatment Not on filedocumented as of this encounter Procedures Procedure Name Priority Date/Time Associated Comments Diagnosis CARDIAC EVENT MONITOR Routine 09/20/2020 8:26 AM Palpita tions Results for this APPLICATION AND NETWORK OPERATIONS SPECIALIST Obstructive sleep procedu re are in PROVIDER INTERPRETATION apnea syndrome th e results section. documented in this encounter Results CARDIAC EVENT MONITOR APPLICATION AND PROVIDER INTERPRETATION (09/20/2020 8:26 AM NETWORK OPERATIONS SPECIALIST) Anatomical Region Laterality Modality Other Specimen (Source) Anatomical Location Collection Method / Collectio n Time Received Time / Laterality Volume Narrative This result has an attachment that is no t available. Chadwick Jensen NP CV CARDIAC SERVICES ORDERABL ES documented in this encounter Visit Diagnoses Diagnosis Palpitations Obstructive sleep apnea syndrome Obstructive sleep apnea (adult) (pediatr ic) documented in this encounter Care Teams Vertical Borer Relationship Specialty Start Date End Date Yamila Dave, PCP - General Physician Die Barber 04/14/20 RITIKA [facility] [address] [place] [address] Rahul Ford Assigned Heart and 06/25/2011/01 MD [place] Vascular Provider [facility] HEART CARE [address] [address] documented as of this encounter
--- OUTSIDE RECORDS SUMMARY | 2022-06-15 08:55 | XMS_ITS | Encounter Summary ---
:1960 Author Organization [place] Address [address] [facility] [place] [address] Care Team Providers Name Role Phone Yamila Dave PA-C Primary Care Provider [phone] Rahul Ford MD Unavailable Encounter Details Date Type Department Care Team Description 09/17/2020 Travel Social History Tobacco Use Types Packs/Day Years Used Date Smoking Tobacco: Never Smokeless Tobacco: Never Alcohol Use Standard Drinks/Week Comments Yes 0 (1 standard drink = 0.6 oz pure alcoho l) rare occasion Sex Assigned at Date Recorded Female 04/22/2020 2:54 PM CDT COVID-19 Exposure Response Date Recorded In the last month, have you been in contact with No / Unsure 09/17/2020 2:49 PM FEEDER CATCHER someone who was confirmed or suspected to have Coronavirus / COVID-19? documented as of this encounter Plan of Treatment Not on filedocumented as of this encounter Visit Diagnoses Not on filedocumented in this encounter Care Teams Supervisor Sewing Room Relationship Specialty Start Date End Date Yamila Dave, PCP - General Physician Radiation Monitor 04/14/20 RITIKA [facility] [address] [place] [address] Rahul Ford Assigned Heart and 06/25/2011/01 MD [place] Vascular Provider [facility] HEART CARE [address] [place] [id number] documented as of this encounter
--- OUTSIDE RECORDS SUMMARY | 2022-06-15 08:55 | XMS_ITS | Encounter Summary ---
:1960 Author Organization [place] Address [address] [facility] [place] [address] Care Team Providers Name Role Phone Yamila Dave PA-C Primary Care Provider Rahul Ford MD Unavailable [phone] Reason for Visit Diagnostic Imaging NM (Routine) - Closed Specialty Diagnoses / Procedures Referred By Contact Refer red To Contact Radiology. Diagnoses Coronary artery disease involving [place] coronary artery of [place] heart without angina pectoris Palpitations Atypical chest pain Chadwick Jensen, LATOSHA Rh Nuclear Medicine Procedures NM Lexiscan stress test [address] [place] [address] [place] [address] Phone: Fax: Referral ID Status Reason Start Date Expiration Date Visits Requ ested Visits Authorized [id number] Closed 09/13/2020 09/13/2021 5 5 Encounter Details Date Type Department Care Team Description 09/16/2020 Hospital Encounter [facility] Keyshawn Jensen Imaging FLAT FOLDER [address] [place], [place] [address] [phone] Social History Tobacco Use Types Packs/Day Years Used Date Smoking Tobacco: Never Smokeless Tobacco: Never Alcohol Use Standard Drinks/Week Comments Yes 0 (1 standard drink = 0.6 oz pure alcoho l) rare occasion Sex Assigned at Date Recorded Female 04/22/2020 2:54 PM CDT COVID-19 Exposure Response Date Recorded In the last month, have you been in contact with No / Unsure 09/16/2020 10:58 AM MODELING AGENCY MANAGER someone who was confirmed or suspected to [...] 1 mg by mouth 0 tablet daily methotrexate 2.5 MG tablet 15 mg every 7 days 0 0 01/09/2020 Multiple Vitamin Take by mouth daily 0 (MULTI-VITAMINS) TABS Vitamin D3 Take 2,000 Units by 0 (CHOLECALCIFEROL) 25 mcg mouth (1000 units) tablet ASPIRIN LOW DOSE 81 MG EC Take 81 mg by mouth 0 0 04/04/2020 03/21/2021 tablet daily atorvastatin (LIPITOR) 40 Take 40 mg by mouth 0 0 04/04/2020 03/21/2021 MG tablet daily clopidogrel (PLAVIX) 75 MG Take 75 mg by mouth 0 04/03/2020 02/22/2022 tablet daily Digestive Enzymes 0 022 (DIGESTIVE [...] 25 MG tablet mouth 2 times daily TURMERIC CURCUMIN PO Take by mouth daily 0 02/22/2022 documented as of this encounter Plan of Treatment Not on filedocumented as of this encounter Procedures Procedure Name Priority Date/Time Associated Diagnosis Comme nts NM MPI WITH Routine 09/16/2020 1:55 PM Coronary artery Result s for this LEXISCAN MODELING AGENCY MANAGER disease involving procedure are in [place] coronary the results artery of [place] section. heart without angina pectoris Palpitations Atypical chest pain documented in this encounter Results NM Lexiscan stress test (09/16/2020 1:55 PM MODELING AGENCY MANAGER) P athologist Signature Target HR 161 RADIANT Baseline 128 RADIANT Systolic BP Baseline 86 RADIANT Diastolic BP Last Stress 162 RADIANT Systolic BP Last Stress 86 RADIANT Diastolic BP Baseline HR 80 RADIANT Max HR 122 RADIANT Max Predicted 76 % RADIANT HR Rate Pressure 19,764.0 RADIANT Product Stress/rest 1.21 RADIANT perfusion ratio Anatomical Region Laterality Modality Chest Nuclear Medicine Specimen (Source) Anatomical Location Collection Method / Collectio n Time Received Time / Laterality Volume Narrative 09/16/2020 2:31 PM MODELING AGENCY MANAGER ?The nuclear stress test is abnormal. ?There is a small area of a mild degree of nontransmural infarction in the distal anterior and apical segment(s ) of the left ventricle. ?The left ventricular ejection fraction at stress is greater than 70%. ?There is no prior study for comparison. Stress Findings A pharmacologic stress test was performe d following a walking Lexiscan protocol using 0.4 mg of intravenous regadenoson administered over 10 seconds under the supervision of Dr. Billy Menchaca. The patient reported dyspnea during the stress test. ECG Baseline electrocardiogram demonstrates sinus rhythm. Septal Q wave pattern. The stress electrocardiogram is negative for inducible ischemic EKG changes. There were no arrhythmias during stress. There were no arrhythmias during recovery. Isotope Administration Nuclear imaging was accomplished using a one day protocol with 30 mCi of technetium tetrofosmin injected at the completion of Lexiscan infusion on 09/16/2020 and 10.3 mCi of technetium tetrofosmin at rest on 09/16/2020. Nuclear Study Quality Final image quality is satisfactory. Perfusion Defect The nuclear stress test is abnormal. The re is a small area of a mild degree of nontransmural infarction in the distal anterior and apical segment(s) of the left ventricle. The left ventricular ejection fraction at stress is greater than 70%. Stress to rest cavity ratio is 1.21. Nuclear Prior Study There is no prior study for comparison. Perfusion Scoring Stress Summed Score: 2 Percent Normal: 2.94% Mild count reduction in the following se gments: apex and apical anterior. The following segments are normal: basal anterior, basal anteroseptal, basal inferoseptal, basal inferior, basal inferolateral, basal anterolateral, mid anterior, mid anteroseptal, mid inferoseptal, mid inferior, mid inferolateral, mid guzman lateral, apical septal, apical inferior and apical lateral. Perfusion Scoring Resting Summed Score: 2 Percent Normal: 2.94% Mild count reduction in the following se gments: apex and apical anterior. The following segments are normal: basal anterior, basal anteroseptal, basal inferoseptal, basal inferior, basal inferolateral, basal anterolateral, mid anterior, mid anteroseptal, mid inferoseptal, mid inferior, mid inferolateral, mid guzman lateral, apical septal, apical inferior and apical lateral. Perfusion Scores: SRS Score: 2 Percentag e Abnormal: 2.94% Perfusion Scores: SSS Score: 2 Percentag e Abnormal: 2.94% Perfusion Scores: SDS Score: 0 Percentag e Abnormal: 0.00% Wall Motion Score Index: 1.00 The left ventricular wall motion is norm al. Chadwick Jensen NP IMG NM ORDERABLES documented in this encounter Visit Diagnoses Not on filedocumented in this encounter Care Teams Catholic Priest Relationship Specialty Start Date End Date Yamila Dave PCP - General Physician Oncology Nurse 04/14/20 PAGary [facility] [address] [place] [address] Rahul Ford Assigned Heart and 06/25/2011/01 MD [place] Vascular Provider [facility] HEART CARE [address] [address] documented as of this encounter
--- OUTSIDE RECORDS SUMMARY | 2022-06-15 08:55 | XMS_ITS | Encounter Summary ---
:1960 Author Organization [place] Address [address] [place] [address]. [place] [address] Care Team Providers Name Role Phone Yamila Dave PA-C Primary Care Provider [phone] Rahul Ford MD Unavailable [phone] Reason for Visit Reason Comments Splunk Dashboard Developer Encounter Details Date Type Department Care Team Description 09/28/2020 Documentation Only [facility] Britney, Splunk Dashboard Developer Health Heart ANUM [place] [address] [place] [address] Social History Tobacco Use Types [...] with No / Unsure 09/20/2020 7:44 AM CHAIR CANER someone who was confirmed or suspected to have Coronavirus / COVID-19? documented as of this encounter Progress Notes Adamaris Tan RN - 09/28/2020 9:04 AM CST BIOTEL EVENT MONITOR STRIPS RECEIVED Date/time: 09/25/20 at 1656. Patient reported: resting. Rhythm: sinus rhythm, HR 60 bpm. Strips filed. Will continue to monitor. Ana ROWAN R CANER documented in this encounter Plan of Treatment Not on filedocumented as of this encounter Visit Diagnoses Not on filedocumented in this encounter Care Teams Inventory And Pricing Associate Relationship Specialty Start Date End Date Yamila Dave, PCP - General Physician Retail Performance Coach 04/14/20 RITIKA [facility] [address] [place] [address] Rahul Ford Assigned Heart and 06/25/2011/01 MD [place]o Vascular Provider [facility] HEART CARE [address] [place] [address] documented as of this encounter
--- OUTSIDE RECORDS SUMMARY | 2022-06-15 08:55 | XMS_ITS | Encounter Summary ---
:1960 Author Organization [place] Address [address] [facility] [place] [address] Care Team Providers Name Role Phone Yamila Dave PA-C Primary Care Provider [phone] Rahul Ford MD Unavailable [phone] Encounter Details Date Type Department Care Team Description 09/16/2020 Travel Social History Tobacco Use Types Packs/Day [...] with No / Unsure 09/16/2020 10:58 AM BORE MINER OPERATOR someone who was confirmed or suspected to have Coronavirus / COVID-19? documented as of this encounter Plan of Treatment Not on filedocumented as of this encounter Visit Diagnoses Not on filedocumented in this encounter Care Teams Avaya Engineer Relationship Specialty Start Date End Date Yamila Dave, PCP - General Physician Accordion Tuner 04/14/20 RITIKA [facility] [address] [place] [address] Rahul Ford Assigned Heart and 06/25/2011/01 MD Pilo Vascular Provider [facility] HEART CARE [address] [place] [address] documented as of this encounter
--- OUTSIDE RECORDS SUMMARY | 2022-06-15 08:55 | XMS_ITS | Encounter Summary ---
:1960 Author Organization [place] Address [address] [facility] [place] [address] Care Team Providers Name Role Phone Yamila Dave PA-C Primary Care Provider Rahul Ford MD Unavailable [phone] Encounter Details Date Type Department Care Team Description 09/20/2020 Travel Social History Tobacco Use Types Packs/Day [...] with No / Unsure 09/20/2020 7:44 AM PSYCHIATRIC ASSISTANT someone who was confirmed or suspected to have Coronavirus / COVID-19? documented as of this encounter Plan of Treatment Not on filedocumented as of this encounter Visit Diagnoses Not on filedocumented in this encounter Care Teams Spindle Repairer Relationship Specialty Start Date End Date Yamila Dave, PCP - General Physician Snowboard Instructor 04/14/20 RITIKA [facility] [address] [place] [address] Rahul Ford Assigned Heart and 06/25/2011/01 MD Pilo Vascular Provider [facility] HEART CARE [address] [place] [address] documented as of this encounter
--- OUTSIDE RECORDS SUMMARY | 2022-06-15 08:55 | XMS_ITS | Encounter Summary ---
:1960 Author Organization [place] Address [address] [place] [address]. [place] [address] Care Team Providers Name Role Phone Yamila Dave PA-C Primary Care Provider [phone] Rahul Ford MD Unavailable [phone] Reason for Visit Reason Comments Communications Strategist Encounter Details Date Type Department Care Team Description 10/04/2020 Documentation Only [facility] Britney, Communications Strategist Health Heart ANUM [place] [address] [place] [address] Social History Tobacco Use Types [...] with No / Unsure 09/20/2020 7:44 AM DOCK GRADER someone who was confirmed or suspected to have Coronavirus / COVID-19? documented as of this encounter Progress Notes Adamaris Tan RN - 10/04/2020 10:48 AM CST INFOGRAPHIQSEL EVENT MONITOR STRIPS RECEIVED Date/time: 10/03/20 at 1406. Patient reported: none. Rhythm: Sinus Bradycardia, HR 57 bpm. Strips filed. Will continue to monitor. Ana ROWAN GRADER documented in this encounter Plan of Treatment Not on filedocumented as of this encounter Visit Diagnoses Not on filedocumented in this encounter Care Teams Skirt Panel Assembler Relationship Specialty Start Date End Date Yamila Dave, PCP - General Physician Hide Dyer 04/14/20 RITIKA [facility] [address] [place] [address] Rahul Ford Assigned Heart and 06/25/2011/01 MD Pilo Vascular Provider [facility] HEART CARE [address] [place] [address] documented as of this encounter
--- OUTSIDE RECORDS SUMMARY | 2022-06-15 08:55 | XMS_ITS | Encounter Summary ---
:1960 Author Organization [place] Address [address] [place] [address] Care Team Providers Name Role Phone Yamila Dave PA-C Primary Care Provider Rahul Ford MD Unavailable [phone] Reason for Visit Diagnostic Imaging NM (Routine) - Closed Specialty Diagnoses / Procedures Referred By Contact Refer red To Contact Radiology. Diagnoses Coronary artery disease involving [place] coronary artery of [place] heart without angina pectoris Palpitations Atypical chest pain Chadwick Jensen, LATOSHA Rh Nuclear Medicine Procedures NM Lexiscan stress test [address] [place] [address] [place] [address] Phone: Fax: Referral ID Status Reason Start Date Expiration Date Visits Requ ested Visits Authorized [id number] Closed 09/13/2020 09/13/2021 5 5 Encounter Details Date Type Department Care Team Description 09/16/2020 Hospital Encounter [facility] Keyshawn Jensne Imaging MANUFACTURING PROCESS ENGINEER [address] [place], [place] [id number] [phone] Social History Tobacco Use Types Packs/Day Years [...] with No / Unsure 09/16/2020 10:58 AM URINALYSIS TECHNICIAN someone who was confirmed or suspected to [...] Coronary artery Result s for this LEXISCAN URINALYSIS TECHNICIAN disease involving procedure are in [place] coronary the results artery of [place] section. heart without angina pectoris Palpitations Atypical chest pain documented in this encounter Results NM Lexiscan stress test (09/16/2020 1:55 PM URINALYSIS TECHNICIAN) P athologist Signature Target HR 161 RADIANT [...] / Laterality Volume Narrative 09/16/2020 2:31 PM URINALYSIS TECHNICIAN ?The nuclear stress test is abnormal. ?There [...] on filedocumented in this encounter Care Teams Aeronautical Products Sales Engineer Relationship Specialty Start Date End Date Yamila Dave PCP - General Physician Smutter 04/14/20 [facility] [address] [place] [address] Rahul Ford Assigned Heart and 06/25/2011/01 MD [facility] Provider [facility] [address] [address] documented as of this encounter
--- OUTSIDE RECORDS SUMMARY | 2022-06-15 08:55 | XMS_ITS | Encounter Summary ---
:1960 Author Organization [place] Address [address] [facility] [place] [address] Care Team Providers Name Role Phone Yamila Dave PA-C Primary Care Provider Rahul Ford MD Unavailable [phone] Reason for Referral Diagnostic Imaging NM (Routine) - Closed Specialty Diagnoses / Procedures Referred By Contact Refer red To Contact Radiology. Diagnoses Coronary artery disease involving [place] coronary artery of [place] heart without angina pectoris Palpitations Atypical chest pain Chadwick Jensen NP Rh Nuclear Medicine Procedures NM Lexiscan stress test [address] [place] [address] [place] [address] Phone: Fax: Referral ID Status Reason Start Date Expiration Date Visits Requ ested Visits Authorized [id number] Closed 09/13/2020 09/13/2021 5 5 TS THERAPIST Reason for Visit (Routine) - Closed Specialty Diagnoses / Procedures Referred By Contact Refer red To Contact Cardiology Diagnoses Per Klever, Coronary artery disease involving [place] coronary artery of [place] heart without angina pectoris Palpitations Atypical chest pain, prep given to pt Rh Cardiac Servi nicole Procedures EKG STRESS NM LEXISCAN [address] [place], [place] [address] Phone: Referral ID Status Reason Start Date Expiration Date Visits Requ ested Visits Authorized [id number] Closed 09/16/2020 09/16/2021 1 1 Encounter Details Date Type Department Care Team Description 09/16/2020 Hospital Encounter [facility] Marquise Jensen artery disease involving [place] coronary artery of [place] heart without angina pectoris; [facility] LATOSHA Genao Palpitations; Heart Care [address] Atypical chest pain [address] [place] [id number] Social History Tobacco Use Types Packs/Day Years [...] with No / Unsure 09/16/2020 10:58 AM SPORTS THERAPIST someone who was confirmed or suspected to [...] Coronary artery Result s for this LEXISCAN SPORTS THERAPIST disease involving procedure are in [place] coronary the results artery of [place] section. heart without angina pectoris Palpitations Atypical chest pain documented in this encounter Results NM Lexiscan stress test (09/16/2020 1:55 PM SPORTS THERAPIST) P athologist Signature Target HR 161 RADIANT [...] / Laterality Volume Narrative 09/16/2020 2:31 PM SPORTS THERAPIST ?The nuclear stress test is abnormal. ?There [...] Visit Diagnoses Diagnosis Coronary artery disease involving [place] coronary artery of [place] heart without angina pectoris Palpitations Atypical chest pain Other chest pain documented in this encounter Administered Medications Inactive Administered Medications - up to 3 most recent administrations Medication Order MAR Action Action Date Dose Rate Site regadenoson (LEXISCAN) injection Given 09/16/2020 12:47 PM SPORTS THERAPIST 0 .4 mg 0.4 mg 0.4 mg, Intravenous, ONCE, On Nathaly 09/16/20 at 1300, For 1 dose, Push medication in through saline lock over 15 seconds. Follow medication with saline flush. To be given in procedure area., Cardiac Intra-procedure documented in this encounter Care Teams Air Marshal Relationship Specialty Start Date End Date Yamila Dave, PCP - General Physician Roofing Applicator 04/14/20 [facility] [address] [place] [address] Rahul Ford Assigned Heart and 06/25/2011/01 MD [facility] V[facility] Provider [facility] [address] [place] [address] documented as of this encounter
--- OUTSIDE RECORDS SUMMARY | 2022-06-15 08:55 | XMS_ITS | Encounter Summary ---
:1960 Author Organization [facility] Address [address] [place] [address] Care Team Providers Name Role Phone Yamila Dave PA-C Primary Care Provider [phone] Rahul oFrd MD Unavailable [phone] Reason for Visit Reason Comments Hematuria Encounter Details Date Type Department Care Team Description 09/17/2020 Emergency [facility] Pranav Doe Cla, MD Gross hematuria; [facility] Emergency Dep t EMERGENCY PHYSICIANS Left ureteral calculus [address] [place], [place] [address] [place] [address] [place] [address] (Wo rk) Social History Tobacco Use Types [...] with No / Unsure 09/17/2020 2:49 PM VARYING EXCEPTIONALITIES TEACHER someone who was confirmed or suspected to have Coronavirus / COVID-19? documented as of this encounter Last Filed Vital Signs Vital Sign Reading Time Taken Comments Blood Pressure 130/78 09/17/2020 4:45 PM VARYING EXCEPTIONALITIES TEACHER Pulse 61 09/17/2020 5:30 PM VARYING EXCEPTIONALITIES TEACHER Temperature 36.3 ??C (97.4 ??F) 09/17/2020 2:53 PM VARYING EXCEPTIONALITIES TEACHER Respiratory Rate 18 09/17/2020 2:53 PM VARYING EXCEPTIONALITIES TEACHER Oxygen Saturation 96% 09/17/2020 5:30 PM VARYING EXCEPTIONALITIES TEACHER Inhaled Oxygen Concentration - - Weight - - Height - - Body Mass Index - - documented in this encounter Discharge Instructions Discharge InstructionsPranav Doe MD - 09/17/2020 6:37 PM CST MAKE SURE TO DRINK 8-10 LARGE GLASSES OF CLEAR LIQUIDS DAILY TO ENCOURAGE POSSIBLE PASSAGE OF THE KIDNEY STONE AND TO HELP KEEP THE URINE DILUTED AND PREVENT BLOOD CLOTS FROM FORMING. ING EXCEPTIONALITIES TEACHER AttachmentsThe following attachments cannot be sent through Care Everywhere. Kidney Stone w/ Colic (Occitan)documented in this encounter Medications at Time of [...] documented as of this encounter ED Notes David Fleming RN - 09/17/2020 2:52 PM CST A&O x4, ABCs intact. Pt presents with hematuria that started yesterday. Pt denies flank pain, urinary frequency, or dysuria. Pt does report lower back pain that is more on the left than the right. ING EXCEPTIONALITIES TEACHER Pranav Doe MD - 09/17/2020 2:49 PM CST History Chief Complaint: Hematuria HPI Kriss Song is a 60 year old female with history of kidney stones, hypertension, and NSTEMI who presents with hematuria. The patient reports she has a known history of bilateral kidney stones andyesterday she developed hematuria that has been persistent since onset. She endorses back pain associ ated to the kidney stones. She states she has 2 kidney stones in each kidney and she passed 1 on theright side 6 weeks ago. She notes she had an NSTEMI in March and recently had racing and fluttering and therefore had a stress test yesterday which she reports was unremarkable. She endorses diarrhea and mild abdominal pain but she attributes this to a new diet she started. She denies blood in stool, vomiting, and vaginal bleeding. No fever. She denies any other symptoms. Review of Systems Constitutional: Negative for fever. Gastrointestinal: Positive for abdominal pain and diarrhea. Negative for blood in stool and vomiting. Genitourinary: Positive for hematuria. Negative for vaginal bleeding. Musculoskeletal: Positive for back pain. All other systems reviewed and are negative. Allergies: Sulfa Drugs Medications: Aspirin 81 Atorvastatin Celexa Plavix Pepcid Folvite Culturell Cozaar Methotrexate Metoprolol tartrate Past Medical History: CAD Hypertension NSTEMI GERD Iron deficiency anemia Sleep apnea Vitamin D deficiency Kidney stones Past Surgical History: section Ligate fallopian tube Lumpectomy Benign biopsy left Family History: COPD Emphysema Cataracts Heart failure Aortic aneurysm Prostate cancer Social History: Patient presents unaccompanied to the ED. Patient moved here from [place] Physical Exam Patient Vitals for the past 24 hrs: BP Temp Temp src Pulse Resp SpO2 09/17/20 1730 -- -- -- 61 -- 96 % 09/17/20 1715 -- -- -- 63 -- 96 % 09/17/20 1700 -- -- -- 61 -- 98 % 09/17/20 1645 130/78 -- -- 59 -- 95 % 09/17/20 1453 (!) 161/98 97.4 ??F (36.3 ??C) Temporal 85 18 98 % Physical Exam General: Well appearing, nontoxic. Resting comfortably Head: Scalp, face, and head appear normal Eyes: Pupils are equal, round Conjunctivae non-injected and sclerae white ENT: The external nose is normal Pinnae are normal Neck: Normal range of motion There is no rigidity noted Trachea is in the midline CV: Regular rate and rhythm Normal S1/S2, no S3/S4 No murmur or rub. Radial pulses 2+ bilaterally. Resp: Lungs are clear and equal bilaterally There is no tachypnea No increased work of breathing No rales, wheezing, or rhonchi GI: Abdomen is soft, no rigidity or guarding No distension, or mass No tenderness or rebound tenderness. No CVA tenderness MS: Normal muscular tone Symmetric motor strength No lower extremity edema Skin: No rash or acute skin lesions noted Neuro: Awake and alert Speech is normal and fluent Moves all extremities spontaneously Psych: Normal affect. Appropriate interactions. Emergency Department Course Imaging: CT Abdomen/Pelvis w Contrast: 1. ??There is a 6 x 3 mm left UPJ stone. No left hydronephrosis. 2. ??Tiny right-sided kidney stones As read by Radiology. Laboratory: CBC: WNL (WBC 4.4, HGB 13.6, PLT 162) CMP: Anion Gap: 1 (L) o/w WNL (Creatinine: 0.67) UA with Microscopic: blood - large, Protein Albumin 10, WBC 9 (H), RBC >182 (H), bacteria - few, mucous - present, o/w negative. Emergency Department Course: Reviewed: 1600: I reviewed the patient's nursing notes, vitals, past medical records, and Care Everywhere. Assessments: 1413: I performed an exam of the patient as documented above. 183: I rechecked the patient and discussed the ED workup thus far. Disposition: Discharged to home. Impression & Plan Medical Decision Making: Kriss Song is a 60 year old female who presented with hematuria and mild back pain. CT confirms a 6mm x 3mm ureteral stone at the left UPJ. Renal function is normal/baseline. CT and lab workup show no other alternative etiology that could be causing her symptoms (e.g., AAA, appendicitis, pyelone phritis). There is no fever or convincing evidence of a urinary tract infection. On recheck, her pain is controlled with interventions in the ED and she is tolerating POs. I will prescribe supportive medications. Patient reports she has had a bad experience with flomax and does not wish to try this medication again. I have advised her to return for uncontrolled pain, vomiting, fever, or any other concerning symptoms. Given the size of the stone she may require urologic intervention. I stressed the importance of close urology follow up. Her symptoms are well controlled currently. Workup is otherwisereassuring. No other acute findings on imaging. Return precautions were discussed with patient. The p corby's questions were answered and the patient was agreeable with discharge. Diagnosis: ICD-10-CM 1. Gross hematuria R31.0 2. Left ureteral calculus N20.1 Discharge Medications: New Prescriptions ONDANSETRON (ZOFRAN ODT) 4 MG ODT TAB Take 1 tablet (4 mg) by mouth every 8 hours as needed for nausea or vomiting TAMSULOSIN (FLOMAX) 0.4 MG CAPSULE Take 1 capsule (0.4 mg) by mouth At Bedtime for 7 days Stop taking after kidney stone passes. Scribe Disclosure: I, Clara Suarez, am serving as a scribe at 3:48 PM on 09/17/2020 to document services personally performed by Pranav Doe MD based on my observations and the provider's statements to me. Pranav Doe MD 09/17/202042 ING EXCEPTIONALITIES TEACHER documented in this encounter Plan of Treatment Not on filedocumented as of this encounter Procedures Procedure Name Priority Date/Time Associated Comments Diagnosis CT ABDOMEN PELVIS W/O STAT 09/17/2020 6:13 PM Results for this CONTRAST VARYING EXCEPTIONALITIES TEACHER procedure are i n the results section. CBC WITH PLATELETS & STAT 09/17/2020 4:41 PM R esults for this DIFFERENTIAL VARYING EXCEPTIONALITIES TEACHER procedure are i n the results section. COMPREHENSIVE STAT 09/17/2020 4:41 PM Results for this METABOLIC PANEL VARYING EXCEPTIONALITIES TEACHER procedure ar e in the results section. ROUTINE UA WITH STAT 09/17/2020 3:29 PM Result s for this MICROSCOPIC VARYING EXCEPTIONALITIES TEACHER procedure are i n the results section. documented in this encounter Results CT Abdomen Pelvis w/o Contrast (09/17/2020 6:13 PM VARYING EXCEPTIONALITIES TEACHER) Anatomical Region Laterality Modality Abdomen/Pelvis, SUBRAD CT BODY, UMP CT ABDOMEN PELVIS, Computed Tomography RAD CT Specimen (Source) Anatomical Collection Method Collection Time Re ceived Time Location / / Volume Laterality 09/17/2020 6:07 PM VARYING EXCEPTIONALITIES TEACHER Impressions 09/17/2020 6:19 PM VARYING EXCEPTIONALITIES TEACHER IMPRESSION: 1. ??There is a 6 x 3 mm left UPJ stone. No left hydronephrosis. 2. ??Tiny right-sided kidney stones. Narrative 09/17/2020 6:19 PM VARYING EXCEPTIONALITIES TEACHER EXAM: CT ABDOMEN PELVIS W/O CONTRAST LOCATION: [facility] DATE/TIME: 09/17/2020 6:07 PM INDICATION: Flank pain. Hematuria. COMPARISON: None. TECHNIQUE: CT scan of the abdomen and pe lvis was performed without IV contrast. Multiplanar reformats were obtained. Dose reduction techniques were used. CONTRAST: None. FINDINGS: LOWER CHEST: Normal. HEPATOBILIARY: Normal. PANCREAS: Normal. SPLEEN: Small granulomata. ADRENAL GLANDS: Normal. KIDNEYS/BLADDER: There is a 6 x 5 x 3 mm left UPJ stone. No left hydronephrosis. No additional left-sided stones. There are 2 separate faint 1 mm right ki dney stones. No right hydronephrosis. BOWEL: Normal. LYMPH NODES: Normal. VASCULATURE: Unremarkable. PELVIC ORGANS: Normal. MUSCULOSKELETAL: Normal. Procedure Note Chon Rosa MD - 09/17/2020Formatt ing of this note might be different from the original. EXAM: CT ABDOMEN PELVIS W/O CONTRAST LOCATION: [facility] DATE/TIME: 09/17/2020 6:07 PM INDICATION: Flank pain. Hematuria. COMPARISON: None. TECHNIQUE: CT scan of the abdomen and pe lvis was performed without IV contrast. Multiplanar reformats were obtained. Dose reduction techniques were used. CONTRAST: None. FINDINGS: LOWER CHEST: Normal. HEPATOBILIARY: Normal. PANCREAS: Normal. SPLEEN: Small granulomata. ADRENAL GLANDS: Normal. KIDNEYS/BLADDER: There is a 6 x 5 x 3 mm left UPJ stone. No left hydronephrosis. No additional left-sided stones. There are 2 separate faint 1 mm right ki dney stones. No right hydronephrosis. BOWEL: Normal. LYMPH NODES: Normal. VASCULATURE: Unremarkable. PELVIC ORGANS: Normal. MUSCULOSKELETAL: Normal. IMPRESSION: 1. There is a 6 x 3 mm left UPJ stone. N o left hydronephrosis. 2. Tiny right-sided kidney stones. Pranav Doe MD IMG CT ORDERABLES (ABNORMAL) Comprehensive metabolic panel (09/17/2020 4:41 PM VARYING EXCEPTIONALITIES TEACHER) P athologist Signature Sodium 140 133 - 144 09/17/2020 [place] mmol/L 5:02 PM [facility] Potassium 3.9 3.4 - 5.3 09/17/2020 [place] mmol/L 5:02 PM [facility] Chloride 108 94 - 109 09/17/2020 [place] mmol/L 5:02 PM [facility] Carbon Dioxide 31 20 - 32 09/17/2020 [place] mmol/L 5:08 PM [facility] Anion Gap 1 (L) 3 - 14 09/17/2020 [place] mmol/L 5:08 PM [facility] Glucose 84 70 - 99 09/17/2020 [place] mg/dL 5:08 PM [facility] Urea Nitrogen 20 7 - 30 09/17/2020 [place] mg/dL 5:08 PM [facility] Creatinine 0.67 0.52 - 09/17/2020 [place] 1.04 mg/dL 5:08 PM [facility] GFR Estimate >90 >60 09/17/2020 [place] mL/min/{1. 5:[address] [facility] 73_m2} HOSPITAL Comment: Non GFR Calc Starting 08/20/2018, serum creatinine ba sed estimated GFR (eGFR) will be calculated using the Chronic Kidney Dise [facility] Epidemiology Collaboration (CKD-EPI) equation. GFR Estimate If >90 >60 mL/min/{1.73_m2} 09/17/2020 5: 08 PM [facility] Comment: GFR Calc Starting 08/20/2018, serum creatinine ba sed estimated GFR (eGFR) will be calculated using the Chronic Kidney Dise [facility] Epidemiology Collaboration (CKD-EPI) equation. Calcium 9.1 8.5 - 10.1 mg/dL 09/17/2020 5:08 PM [facility] Bilirubin Total 0.5 0.2 - 1.3 mg/dL 09/17/2020 5:10 PM [facility] Albumin 4.2 3.4 - 5.0 g/dL 09/17/2020 5:10 PM [facility] Protein Total 7.0 6.8 - 8.8 g/dL 09/17/2020 5:10 PM [facility] Alkaline Phosphatase 82 40 - 150 U/L 09/17/2020 5:10 PM [facility] ALT 38 0 - 50 U/L 09/17/2020 5:10 PM [facility] AST 23 0 - 45 U/L 09/17/2020 5:10 PM [facility] Specimen Anatomical Collection Method Collection Time Receive d Time (Source) Location / / Volume Laterality Blood specimen 09/17/2020 4:41 PM 021 4:47 (specimen) VARYING EXCEPTIONALITIES TEACHER [facility] Pranav Doe MD LAB - BLOOD ORDERABLES Performing Organization Address City/State/ZIP Code Phon e Number [place] [address] [address] [facility] [address] [phone] CBC with platelets differential (09/17/2020 4:41 PM [facility]) [facility] gist Method Time Signature WBC 4.4 4.0 - 09/17/2020 [facility] 11.0 4:[address] [facility] 10e9/L [facility] RBC Count 4.60 3.8 - 5.2 09/17/2020 [facility] 10e12/L 4:51 PM [facility] Hemoglobin 13.6 11.7 - 09/17/2020 [facility] 15.7 g/dL 4:51 PM [facility] Hematocrit 39.4 35.0 - 09/17/2020 [facility] 47.0 % 4:51 PM [facility] MCV 86 78 - 100 09/17/2020 [facility] fl 4:51 PM [facility] MCH 29.6 26.5 - 09/17/2020 [facility] 33.0 pg 4:51 PM [facility] MCHC 34.5 31.5 - 09/17/2020 [facility] 36.5 g/dL 4:51 PM [facility] RDW 12.9 10.0 - 09/17/2020 [facility] 15.0 % 4:51 PM [facility] Platelet Count 162 150 - 450 09/17/2020 [facility] 10e9/L 4:51 PM [facility] Diff Method Automated 09/17/2020 [facility] Method 4:51 PM [facility] % Neutrophils 62.4 % 09/17/2020 [facility] 4:51 PM [facility] % Lymphocytes 20.7 % 09/17/2020 [facility] 4:51 PM [facility] % Monocytes 15.6 % 09/17/2020 [facility] 4:51 PM [facility] % Eosinophils 0.9 % 09/17/2020 [facility] 4:51 PM [facility] % Basophils 0.2 % 09/17/2020 [facility] 4:51 PM [facility] % Immature 0.2 % 09/17/2020 [facility] Granulocytes 4:51 PM [facility] Nucleated RBCs 0 0 /100 09/17/2020 [facility] 4:51 PM [facility] Absolute 2.7 1.6 - 8.3 09/17/2020 [facility] Neutrophil 10e9/L 4:51 PM [facility] Absolute 0.9 0.8 - 5.3 09/17/2020 [facility] Lymphocytes 10e9/L 4:51 PM [facility] Absolute 0.7 0.0 - 1.3 09/17/2020 [facility] Monocytes 10e9/L 4:51 PM [facility] Absolute 0.0 0.0 - 0.7 09/17/2020 [facility] Eosinophils 10e9/L 4:51 PM [facility] Absolute 0.0 0.0 - 0.2 09/17/2020 [facility] Basophils 10e9/L 4:51 PM [facility] Abs Immature 0.0 0 - 0.4 09/17/2020 [facility] Granulocytes 10e9/L 4:51 PM [facility] Absolute 0.0 09/17/2020 [facility] Nucleated RBC 4:51 PM [facility] Specimen Anatomical Collection Method Collection Time Receive d Time (Source) Location / / Volume Laterality Blood specimen 09/17/2020 4:41 PM 021 4:47 (specimen) VARYING EXCEPTIONALITIES TEACHER PM VARYING EXCEPTIONALITIES TEACHER Pranav Doe MD LAB - BLOOD ORDERABLES Performing Organization Address City/State/ZIP Code Phon e Number M [facility] [address] [address] [facility] [address] [phone] (ABNORMAL) UA with Microscopic (09/17/2020 3:29 PM VARYING EXCEPTIONALITIES TEACHER) [facility] Method Time Signature Color Urine Swisher 09/17/2020 [facility] 4:02 PM [facility] Appearance Urine Clear 09/17/2020 [facility] 4:02 PM [facility] Glucose Urine Negative NEG^Negat 09/17/2020 [facility] nora mg/dL 4:02 PM [facility] Bilirubin Urine Negative NEG^Negat 09/17/2020 [facility] nora 4:02 PM [facility] Ketones Urine Negative NEG^Negat 09/17/2020 [facility] nora mg/dL 4:02 PM [facility] Specific [place] 1.009 1.003 - 09/17/2020 [facility] Urine 1.035 4:02 PM [facility] Blood Urine Large (A) NEG^Negat 09/17/2020 [place] nora 4:02 PM [facility] pH Urine 6.0 5.0 - 7.0 09/17/2020 [place] pH 4:02 PM [facility] Protein Albumin 10 (A) NEG^Negat 09/17/2020 [place] Urine nora mg/dL 4:02 PM [facility] Urobilinogen Normal 0.0 - 2.0 09/17/2020 [place] mg/dL mg/dL 4:02 PM [facility] Nitrite Urine Negative NEG^Negat 09/17/2020 [place] nora 4:02 PM [facility] Leukocyte Negative NEG^Negat 09/17/2020 [place] Esterase Urine nora 4:02 PM [facility] Source Midstream 09/17/2020 [place] Urine 3:40 PM [facility] WBC Urine 9 (H) 0 - 5 09/17/2020 [facility] /HPF 4:02 PM [facility] RBC Urine >182 (H) 0 - 2 09/17/2020 [facility] /HPF 4:02 PM [facility] Bacteria Urine Few (A) NEG^Negat 09/17/2020 [place] nora /HPF 4:02 PM [facility] Squamous <1 0 - 1 09/17/2020 [place] Epithelial /HPF /HPF 4:[address] [facility] Mucous Urine Present (A) NEG^Negat 09/17/2020 [place] nora /LPF 4:02 PM [facility] Specimen (Source) Anatomical Collection Method Collection Time Re ceived Time Location / / Volume Laterality Examination of 09/17/2020 3:29 09/17/2020 3:40 midstream urine PM VARYING EXCEPTIONALITIES TEACHER PM VARYING EXCEPTIONALITIES TEACHER specimen (procedure) Pranav Doe MD LAB - URINE ORDERABLES Performing Organization Address City/State/ZIP Code Phon e Number M [facility] [address] [place], [place] [address] [facility] [address] [phone] documented in this encounter Visit Diagnoses Diagnosis Gross hematuria Left ureteral calculus Calculus of ureter documented in this encounter Care Teams Cullet Crusher Relationship Specialty Start Date End Date Yamila Dave, PCP - General Physician Nuclear Fuels Research Engineer 04/14/20 R[facility]A [facility] [address] [place] [address] Rahul Ford Assigned Heart and 06/25/2011/01 MD [facility] V[facility] Provider [facility] [address] [place] [address] documented as of this encounter
--- OUTSIDE RECORDS SUMMARY | 2022-06-15 08:56 | XMS_ITS | Encounter Summary ---
:1960 Author Organization [facility] Address [address] [facility] [place] [address] Care Team Providers Name Role Phone Yamila Dave PA-C Primary Care Provider [phone] Reason for Visit Rehab Therapy Cardiac Therapy (Routine) - Closed Specialty Diagnoses / Procedures Referred By Contact Refer red To Contact CARDIAC REHAB Procedures [facility] CARDIAC [facility] [address] [place], [place] [address] Phone: Fax: Referral ID Status Reason Start Date Expiration Date Visits Requ ested Visits Authorized [id number] Closed 04/14/2020 09/02/2020 365 365 Encounter Details Date Type Department Care Team Description 06/07/2020 Hospital Encounter [facility] Cardiac Mary Lou Arlyn castaneda PA-C [facility] [address] [place] [address] and Pulmonary 1, Rh Cardiac Rehab Rehabilitation [facility] [address] [facility] [address] [place] [address] Social History Tobacco Use [...] been in contact with No / Unsure 06/07/2020 10:01 AM CDT someone who was confirmed or suspected to have Coronavirus / COVID-19? documented as of this encounter Medications at Time of Discharge Medication Sig Dispensed Refills Start Date End Date citalopram (CELEXA) 20 MG Take 20 mg by mouth 0 0 04/07/2020 tablet daily folic acid (FOLVITE) 1 MG Take 1 mg by mouth 0 tablet daily methotrexate 2.5 MG tablet 15 mg every 7 days 0 0 01/09/2020 Multiple Vitamin Take by mouth daily 0 (MULTI-VITAMINS) TABS Vitamin D3 Take 2,000 Units by 0 (CHOLECALCIFEROL) 25 mcg mouth (1000 units) tablet APPLE CIDER VINEGAR PO 0 ASPIRIN LOW DOSE 81 MG EC Take 81 mg by mouth 0 0 04/04/2020 03/21/2021 tablet daily atorvastatin (LIPITOR) 40 Take 40 mg by mouth 0 0 04/04/2020 03/21/2021 MG tablet daily clopidogrel (PLAVIX) 75 MG Take 75 mg by mouth 0 04/03/2020 02/22/2022 tablet daily ENBREL SURECLICK 50 MG/ML 50 mg once a week 0 02/22/2022 autoinjector fish oil-omega-3 fatty 1,200 mg 0 09/03/2014 acids 1000 MG capsule metoprolol tartrate Take 12.5 mg by 0 04/04/2020 03/21/2021 (LOPRESSOR) 25 MG tablet mouth 2 times daily pantoprazole (PROTONIX) 20 Take 20 mg by mouth 0 04/04/2020 09/13/2020 MG EC tablet daily TURMERIC CURCUMIN PO Take by mouth daily 0 02/22/2022 documented as of this encounter Plan of Treatment Not on filedocumented as of this encounter Visit Diagnoses Not on filedocumented in this encounter Care Teams Extract Puller Relationship Specialty Start Date End Date Yamila Dave PA-C PCP - General Physician Nitroglycerin Nitrator Operator Batch 04/14/20 [facility] [address] [place] [address] documented as of this encounter
--- OUTSIDE RECORDS SUMMARY | 2022-06-15 08:56 | XMS_ITS | Encounter Summary ---
:1960 Author Organization [facility] [place] Address [address] [facility] [place] [address] Care Team Providers Name Role Phone Yamila Dave PA-C Primary Care Provider [phone] Rahul Ford MD Unavailable [phone] Reason for Visit Diagnostic Imaging NM (Routine) - Closed Specialty Diagnoses / Procedures Referred By Contact Refer red To Contact Radiology. Diagnoses Coronary artery disease involving [place] coronary artery of [place] heart without angina pectoris Palpitations Atypical chest pain Chadwick Jensen, LATOSHA Rh Nuclear Medicine Procedures NM Lexiscan stress test [address] [place] [address] [place] [address] Phone: Fax: Referral ID Status Reason Start Date Expiration Date Visits Requ ested Visits Authorized [id number] Closed 09/13/2020 09/13/2021 5 5 Encounter Details Date Type Department Care Team Description 09/16/2020 Hospital Encounter [facility] Keyshawn Jensen Imaging ESTIMATOR LUMBER [address] [place], [place] [address] [phone] Social History Tobacco Use Types Packs/Day Years [...] with No / Unsure 09/16/2020 10:58 AM GAUNTLET PAIRER someone who was confirmed or suspected to [...] Coronary artery Result s for this LEXISCAN GAUNTLET PAIRER disease involving procedure are in [place] coronary the results artery of [place] section. heart without angina pectoris Palpitations Atypical chest pain documented in this encounter Visit Diagnoses Not on filedocumented in this encounter Administered Medications Inactive Administered Medications - up to 3 most recent administrations Medication Order MAR Action Action Date Dose Rate Site technetium Tc 99m tetrofosmin 2UD Given 09/16/2020 12:39 PM GAUNTLET PAIRER 30 mCi study ([place]) radioisotope injection 3-42 mCi 3-42 mCi, Intravenous, EVERY 2 HOURS, First dose on Nathaly 09/16/20 at 1130, For 2 doses, Radioisotope, supplied by and administered by Nuclear Medicine. *HW* Given 09/16/2020 11:11 AM GAUNTLET PAIRER 10.3 mCi documented in this encounter Care Teams B2B Sales Professional Relationship Specialty Start Date End Date Yamila Dave, PCP - General Physician Retail Furniture Sales 04/14/20 [facility] [address] [place] [address] Rahul Ford Assigned Heart and 06/25/2011/01 MD [facility] Provider [facility] [address] [id number] documented as of this encounter
--- OUTSIDE RECORDS SUMMARY | 2022-06-15 08:56 | XMS_ITS | Encounter Summary ---
:1960 Author Organization [place] Address [address] [facility]. [address] Care Team Providers Name Role Phone Yamila Dave PA-C Primary Care Provider [phone] Rahul Ford MD Unavailable [phone] Reason for Visit Reason Comments Coronary Artery Disease (Routine) - Closed Specialty Diagnoses / Procedures Referred By Contact Refer red To Contact Diagnoses Coronary artery disease involving mashpee coronary artery of mashpee heart without angina pectoris Rahul Ford MD [facility] [address] [place] [address] Referral ID Status Reason Start Date Expiration Date Visits Requ ested Visits Authorized [id number] Closed 05/03/2020 05/03/2021 1 1 Encounter Details Date Type Department Care Team Description 08/05/2020 Office Visit Jad Basilia Ford MD [facility] [address] [place], [place] [address] Essential hypertension (Primary Dx); [facility] Alo Steel PA-C [address] [place], [place] [id number] Coronary artery disease involving mashpee coronary artery of mashpee heart without angina pectoris Heart [facility] stewart [address] [facility] [address] [place] [address] Social History Tobacco Use Types Packs/Day Years Used Date Smoking Tobacco: Never Smokeless Tobacco: Never Alcohol Use Standard Drinks/Week Comments Yes 0 (1 standard drink = 0.6 oz pure alcoho l) rare occasion Sex Assigned at Date Recorded Female 04/22/2020 2:54 PM CDT COVID-19 Exposure Response Date Recorded In the last month, have you been in contact with No / Unsure 08/05/2020 1:05 PM HOME THEATER SPECIALIST someone who was confirmed or suspected to have Coronavirus / COVID-19? documented as of this encounter Last Filed Vital Signs Vital Sign Reading Time Taken Comments Blood Pressure 140/88 08/05/2020 1:07 PM HOME THEATER SPECIALIST Pulse 76 08/05/2020 1:07 PM HOME THEATER SPECIALIST Temperature - - Respiratory Rate - - Oxygen Saturation - - Inhaled Oxygen Concentration - - Weight 82.4 kg (181 lb 9.6 oz) 08/05/2020 1:07 PM HOME THEATER SPECIALIST Height 162.6 cm (5' 4) 08/05/2020 1:07 PM HOME THEATER SPECIALIST Body Mass Index 31.17 08/05/2020 1:07 PM HOME THEATER SPECIALIST documented in this encounter Progress Notes Alo Steel PA-C - 08/05/2020 1:00 PM CST CARDIOLOGY CLINIC PROGRESS NOTE DOS: 08/05/2020 Kriss Song : 1960, 60 year old History: I am following up with Kriss Song today in the cardiology clinic. She is a patient of Dr. Ford. Kriss Song is a 60 year old woman with history of coronary artery disease, hypertension, dyslipidemia, psoriatic arthritis on methotrexate, CADENCE (did not tolerate CPAP), obesity. ?? In April 2020 she was admitted to [facility] in [place], [place] with non-STEMI. Echo showed EF 55% with no wall motion abnormality and no valve disease. Angiogram showed severe stenosis of a small OM 3 branch, mild disease elsewhere, this was treated medically. Interval History: 05/03/[address] Ford. She had fatigue. Advised to decrease metoprolol to 12.5 mg BID. She was at a wedding in mid June and did get COVID. Fortunately she had mild sxs. Overall she is doing well. Tiredness and fatigue are resolved on lower dose metoprolol 12.5 mg BID. Average resting HR is typically upper 50s at home. It was upper 40s on metoprolol 25 mg BID. BP is elevated today at 140. She previously was on losartan-hydrochlorothiazide but this was stopped and changed to metoprolol during her admission for NSTEMI. She plans to follow up with PCP re BP. She denies any anginal-type chest pain. She has no lightheadedness, dizziness, or lower extremity edema. Her arthritis has been acting up again. She is worried that it can lead to another heart attack. ROS: Skin: Positive for bruising Eyes: Positive for glasses ENT: Negative Respiratory: Positive for sleep apnea Cardiovascular: Positive for;chest pain a rare twinge in her chest, different from what she had withher AR Gastroenterology: Positive for heartburn;reflux Genitourinary: Positive for kidney stone Musculoskeletal: Positive for back pain;arthritis;joint pain Neurologic: Positive for headaches Psychiatric: Negative Heme/Lymph/Imm: Positive for easy bruising;night sweats Endocrine: Negative PAST MEDICAL HISTORY: Past Medical History: Diagnosis Date ??? Coronary artery disease 04/2020 ??? Hypertension ??? NSTEMI (non-ST elevated myocardial infarction) (H) 04/2020 No intervention on cardiac cath PAST SURGICAL HISTORY: No past surgical history on file. SOCIAL HISTORY: Social History Socioeconomic History ??? Marital status: Spouse name: Not on file ??? Number of children: Not on file ??? Years of education: Not on file ??? Highest education level: Not on file Occupational History ??? Not on file Social Needs ??? Financial resource strain: Not on file ??? Food insecurity Worry: Not on file Inability: Not on file ??? Transportation needs Medical: Not on file Non-medical: Not on file Tobacco Use ??? Smoking status: Never Smoker ??? Smokeless tobacco: Never Used Substance and Sexual Activity ??? Alcohol use: Yes Comment: rare occasion ??? Drug use: Not on file ??? Sexual activity: Not on file Lifestyle ??? Physical activity Days per week: Not on file Minutes per session: Not on file ??? Stress: Not on file Relationships ??? Social connections Talks on phone: Not on file Gets together: Not on file Attends anabaptism service: Not on file Active member of club or organization: Not on file Attends meetings of clubs or organizations: Not on file Relationship status: Not on file ??? Intimate partner violence Fear of current or ex partner: Not on file Emotionally abused: Not on file Physically abused: Not on file Forced sexual activity: Not on file Other Topics Concern ??? Parent/sibling w/ CABG, AR or angioplasty before 65F 55M? Not Asked Social History Narrative ??? Not on file FAMILY HISTORY: Family History Problem Relation Age of Onset ??? Chronic Obstructive Pulmonary Disease Mother ??? Emphysema Mother ??? Cataracts Mother ??? Heart Failure Father ??? Aortic aneurysm Father ??? Prostate Cancer Father MEDS: ??? ASPIRIN LOW DOSE 81 MG EC tablet, Take 81 mg by mouth daily ??? atorvastatin (LIPITOR) 40 MG tablet, Take 40 mg by mouth daily ??? citalopram (CELEXA) 20 MG tablet, Take 20 mg by mouth daily ??? clopidogrel (PLAVIX) 75 MG tablet, Take 75 mg by mouth daily ??? Doxylamine Succinate, Sleep, (SLEEP AID PO), Take by mouth as needed ??? ENBREL SURECLICK 50 MG/ML autoinjector, 50 mg once a week ??? folic acid (FOLVITE) 1 MG tablet, Take 1 mg by mouth daily ??? methotrexate 2.5 MG tablet, 15 mg every 7 days ??? metoprolol tartrate (LOPRESSOR) 25 MG tablet, Take 12.5 mg by mouth 2 times daily ??? Multiple Vitamin (MULTI-VITAMINS) TABS, Take by mouth daily ??? pantoprazole (PROTONIX) 20 MG EC tablet, Take 20 mg by mouth daily ??? TURMERIC CURCUMIN PO, Take by mouth daily ??? Vitamin D3 (VITAMIN D3) 25 mcg (1000 units) tablet, Take 2,000 Units by mouth ??? APPLE CIDER VINEGAR PO, ??? fish oil-omega-3 fatty acids 1000 MG capsule, 1,200 mg No current facility-administered medications on file prior to visit. ALLERGIES: Allergies Allergen Reactions ??? Sulfa Drugs Rash PHYSICAL EXAM: Vitals: BP (!) 140/88 (BP Location: Right arm, Patient Position: Sitting, Cuff Size: Adult Regular) Pulse 76 Ht 1.626 m (5' 4) Wt 82.4 kg (181 lb 9.6 oz) BMI 31.17 kg/m?? Constitutional: cooperative, alert and oriented, well developed, well nourished, in no acute distress overweight Skin: warm and dry to the touch, no apparent skin lesions or masses noted Head: normocephalic, no masses or lesions Eyes: pupils equal and round;conjunctivae and lids unremarkable;sclera white ENT: no pallor or cyanosis Neck: JVP normal Respiratory: clear to auscultation Cardiac: regular rhythm;normal S1 and S2 GI: abdomen soft;BS normoactive Vascular: Extremities and Musculoskeletal: no deformities, clubbing, cyanosis, erythema observed;no edema;no spinal abnormalities noted;normal muscle strength and tone Neurological: no gross motor deficits;affect appropriate LABS/DATA: I reviewed the following: No new data ASSESSMENT: 60-year-old female seen for coronary artery disease. She is being managed medically for her non-STEMI. She thinks her psoriatic arthritis has been acting up recently, this could have been the cause of her non-STEMI with the increased inflammation. She is doing well, resolved fatigue and tiredness on lower dose metoprolol. ?? RECOMMENDATIONS: 1. Coronary disease with non-STEMI 04/2020, treated medically -Continue ASA 81 mg indefinitely -Preferably continue clopidogrel for 1 year, could hold if needed since no stent was placed -Decreased metoprolol to 12.5 mg twice daily, with improvement in fatigue -Statin ?? 2. Dyslipidemia -Primary physician to check lipids, goal LDL around 70. This is scheduled for next week. 3. HTN. -Previously was losartan-hydrochlorothiazide, but this was stopped and switched to metoprolol at thetime of her NSTEMI -On metoprolol 12.5 mg BID her SBP is running 140s -Add losartan 25 mg -She prefers to follow up with PCP re BP Follow up: Dr. Ford in 6 months Alo Steel PA-C THEATER SPECIALIST documented in this encounter Plan of Treatment Not on filedocumented as of this encounter Visit Diagnoses Diagnosis Essential hypertension - Primary Unspecified essential hypertension Coronary artery disease involving mashpee coronary artery of mashpee heart without angina pectoris documented in this encounter Care Teams Flying Shear Operator Relationship Specialty Start Date End Date Yamila Dave, PCP - General Physician Clinical Systems Educator 04/14/20 [facility] [address] [place] [address] Rahul Ford Assigned Heart and 06/25/2011/01 MD [facility] V[facility] Provider [facility] CARE [address] [place] [address] documented as of this encounter
--- OUTSIDE RECORDS SUMMARY | 2022-06-15 08:56 | XMS_ITS | Encounter Summary ---
:1960 Author Organization [place] Address [address] [facility] [place] [address] Care Team Providers Name Role Phone Yamila Dave PA-C Primary Care Provider [phone] Reason for Visit Rehab Therapy Cardiac Therapy (Routine) - Closed Specialty Diagnoses / Procedures Referred By Contact Refer red To Contact CARDIAC REHAB Procedures [facility] CARDIAC [facility] [address] [place], [place] [address] Phone: Fax: Referral ID Status Reason Start Date Expiration Date Visits Requ ested Visits Authorized [id number] Closed 04/14/2020 09/02/2020 365 365 Encounter Details Date Type Department Care Team Description 06/09/2020 Hospital Encounter [facility] Cardiac Mary Lou Arlyn castaneda PA-C [facility] [address] [place] [address] and Pulmonary 1, Rh Cardiac Rehab Rehabilitation [facility] [address] [facility] [address] [place] [address] Social History Tobacco Use [...] been in contact with No / Unsure 06/09/2020 10:00 AM CDT someone who was confirmed or [...] on filedocumented in this encounter Care Teams Project Engineer Chemicals Relationship Specialty Start Date End Date Yamila Dave PA-C PCP - General Physician Manager Bakery 04/14/20 [facility] [address] [place] [address] documented as of this encounter
--- OUTSIDE RECORDS SUMMARY | 2022-06-15 08:56 | XMS_ITS | Encounter Summary ---
:1960 Author Organization [place] Address [address] [place] [address] Care Team Providers Name Role Phone Yamila Dave PA-C Primary Care Provider [phone] Rahul Ford MD Unavailable [phone] Encounter Details Date Type Department Care Team Description 09/10/2020 External Order [facility], [address] [place] [address] Social History Tobacco Use Types [...] Associated Diagnosis Comme nts LIPID PROFILE Routine 08/11/2020 Results for th is procedure are in the resu lts section. documented in this encounter Results Lipid Profile (08/11/2020) P athologist Signature Cholesterol 150 90 - 200 mg/dL Triglycerides 131 40 - 197 mg/dL Specimen (Source) Anatomical Location Collection Method / Collectio n Time Received Time / Laterality Volume Blood specimen 08/11/2020 (specimen) Patient Reported LAB - BLOOD ORDERABLES documented in this encounter Visit Diagnoses Not on filedocumented in this encounter Care Teams Journeyman Welder Relationship Specialty Start Date End Date Yamila Dave, PCP - General Physician City Designer 04/14/20 [facility] [address] [place] [address] Rahul Ford Assigned Heart and 06/25/2011/01 MD Pilo Vascular Provider [facility]ART CARE [address] [place] [address] documented as of this encounter
--- OUTSIDE RECORDS SUMMARY | 2022-06-15 08:56 | XMS_ITS | Encounter Summary ---
:1960 Author Organization [place] Address [address] [facility] [place] [address] Care Team Providers Name Role Phone Yamila Dave PA-C Primary Care Provider Rahul Ford MD Unavailable [phone] Encounter Details Date Type Department Care Team Description 08/05/2020 Travel Social History Tobacco Use Types Packs/Day [...] with No / Unsure 08/05/2020 1:05 PM SUPERVISOR DETASSELING CREW someone who was confirmed or suspected to have Coronavirus / COVID-19? documented as of this encounter Plan of Treatment Not on filedocumented as of this encounter Visit Diagnoses Not on filedocumented in this encounter Care Teams Donor Relations Associate Relationship Specialty Start Date End Date Yamila Dave, PCP - General Physician Craft Worker 04/14/20 [facility] [address] [place] [address] Rahul Ford Assigned Heart and 06/25/2011/01 MD Pilo Vascular Provider [facility]ART CARE [address] [place], [place] [address] documented as of this encounter
--- OUTSIDE RECORDS SUMMARY | 2022-06-15 08:56 | XMS_ITS | Encounter Summary ---
:1960 Author Organization [place] Address [facility] [place] [address] Care Team Providers Name Role Phone Yamila Dave PA-C Primary Care Provider [phone] Rahul Ford MD Unavailable Encounter Details Date Type Department Care Team Description 09/09/2020 Telephone [facility] Adamaris Tan RN Heart [facility] [id number] [place] [address] [address] [place] [address] Social History Tobacco Use Types Packs/Day Years Used Date Smoking Tobacco: Never Smokeless Tobacco: Never Alcohol Use Standard Drinks/Week Comments Yes 0 (1 standard drink = 0.6 oz pure alcoho l) rare occasion Sex Assigned at Date Recorded Female 04/22/2020 2:54 PM CDT documented as of this encounter Miscellaneous Notes Telephone Encounter - Adamaris Tan RN - 09/09/2020 1:36 PM CST Pt called, reports two episodes of palpitations w/ elevated HRs. 08/09/20 pt called on-call construction management assistant Dr. Hoskins (in [facility]) for reports of palpitations lasting 4 hours. Pt states she may have been dehydrated. Her fitbit ready HRs over 100 during that time. She hydrated with water and eventually it resolved. On Sunday09/07/20 pt had another episode of palpitations/feeling her heart racing, w/ HRs in low 100s lasting close to 1 hour. She again started to drink water and it eventually got better. Normally her HRs are 55-60s. She denies any CP or SOB. Has chronic pain but no other new symptoms. Last visit 08/05/20 w/ Alo Steel PA-C for follow-up of CAD w/ NSTEMI in 04/2020 treated medically, dyslipidemia and HTN. Pt was previously on losartan-hydrochlorothiazide but was stopped and switched to metoprolol at timeof NSTEMI. On metoprolol 12.5 mg BID at time of visit w/ SBPs running in 140s. Alo advised to startlosartan 25 mg. Noted pt would prefer to follow-up with PCP re BP. Follow-up in 6 months w/ Dr. Ford. Pt would like to be seen in clinic by a provider for an evaluation. I scheduled pt to see Klever Jensen LEONILA 09/13/20 at 2pm at the [facility] location. Nothing was available w/in 2 weeks with Alo or Dr. Ford. Pt does not want to wait 2 weeks for evaluation. I advised if she has any more episodes of palpitations that do not improve w/ hydration, or develops worsen symptoms she should call 911 or have someone take her to the ED. Pt understood. Ana ROWAN, BSN 09/09/20 2:01 PM DRIVER CARPENTER documented in this encounter Plan of Treatment Not on filedocumented as of this encounter Visit Diagnoses Not on filedocumented in this encounter Care Teams Delinquency Prevention Officer Relationship Specialty Start Date End Date Yamila Dave, PCP - General Physician Food Science Professor 04/14/20 [facility] [address] [place] [address] Rahul Ford Assigned Heart and 06/25/2011/01 MD [facility]o Vascular Provider [facility] [address] [place] [address] documented as of this encounter
--- OUTSIDE RECORDS SUMMARY | 2022-06-15 08:56 | XMS_ITS | Encounter Summary ---
:1960 Author Organization [place] Address [address] [facility] [place] [address] Care Team Providers Name Role Phone Yamila Dave PA-C Primary Care Provider [phone] Reason for Visit Rehab Therapy Cardiac Therapy (Routine) - Closed Specialty Diagnoses / Procedures Referred By Contact Refer red To Contact CARDIAC REHAB Procedures [facility] CARDIAC [facility] [address] [place], [place] [address] Phone: Fax: Referral ID Status Reason Start Date Expiration Date Visits Requ ested Visits Authorized [id number] Closed 04/14/2020 09/02/2020 365 365 Encounter Details Date Type Department Care Team Description 06/04/[address] [facility] Cardiac Mary Lou Arlyn castaneda PA-C [facility] [address] [place] [address] and Pulmonary 1, Rh Cardiac Rehab Rehabilitation [facility] [address] [facility] [address] [place] [address] Social History Tobacco Use [...] been in contact with No / Unsure 06/04/2020 9:53 AM CDT someone who was confirmed or [...] on filedocumented in this encounter Care Teams Rad Technologist Relationship Specialty Start Date End Date Yamila Dave PA-C PCP - General Physician Roof Bolter Operator 04/14/20 [facility] [address] [place] [address] documented as of this encounter
--- OUTSIDE RECORDS SUMMARY | 2022-06-15 08:56 | XMS_ITS | Encounter Summary ---
:1960 Author Organization [place] Address [address] [place] [address] Care Team Providers Name Role Phone Yamila Dave PA-C Primary Care Provider [phone] Rahul Ford MD Unavailable [phone] Encounter Details Date Type Department Care Team Description 06/29/2020 Travel Social History Tobacco Use Types Packs/Day Years Used Date Smoking Tobacco: Never Smokeless Tobacco: Never Alcohol Use Standard Drinks/Week Comments Yes 0 (1 standard drink = 0.6 oz pure alcoho l) rare occasion Sex Assigned at Date Recorded Female 04/22/2020 2:54 PM CDT COVID-19 Exposure Response Date Recorded In the last month, have you been in contact with No / Unsure 06/29/2020 3:48 PM CDT someone who was confirmed or suspected to have Coronavirus / COVID-19? documented as of this encounter Plan of Treatment Not on filedocumented as of this encounter Visit Diagnoses Not on filedocumented in this encounter Care Teams Universal Worker Assisted Living Relationship Specialty Start Date End Date Yamila Dave, PCP - General Physician Restorative Art Embalmer 04/14/20 [facility] [address] [place] [address] Rahul Ford Assigned Heart and 06/25/2011/01 MD [facility]o Vascular Provider [facility] CARE [address] [facility] [place] [address] documented as of this encounter
--- OUTSIDE RECORDS SUMMARY | 2022-06-15 08:56 | XMS_ITS | Encounter Summary ---
:1960 Author Organization [place] Address [address] [place] [address] Care Team Providers Name Role Phone Yamila Dave PA-C Primary Care Provider [phone] Rahul Ford MD Unavailable [phone] Reason for Referral CV Testing (Routine) - Closed Specialty Diagnoses / Procedures Referred By Contact Refer red To Contact Cardiology Diagnoses Palpitations Obstructive sleep apnea syndrome Chadwick Jensen NP Rh Cv Cardiac Svc [facility] Procedures Cardiac Event Monitor Adult Pediatric [address] [address] [place] [address] [address] [place] [address] Phone: Fax: Referral ID Status Reason Start Date Expiration Date Visits Requ ested Visits Authorized [id number] Closed 09/13/2020 09/13/2021 1 1 VITY AID (Routine) - Closed Specialty Diagnoses / Procedures Referred By Contact Refer red To Contact Diagnoses Coronary artery disease involving white mountain coronary artery of white mountain heart without angina pectoris Palpitations Essential hypertension Obstructive sleep apnea syndrome Atypical chest pain Chadwick Jensen NP [address] [place] [address] Referral ID Status Reason Start Date Expiration Date Visits Requ ested Visits Authorized [id number] Closed 09/13/2020 09/13/2021 1 1 iagnostic Imaging NM (Routine) - Closed Specialty Diagnoses / Procedures Referred By Contact Refer red To Contact Radiology. Diagnoses Coronary artery disease involving white mountain coronary artery of white mountain heart without angina pectoris Palpitations Atypical chest pain Chadwick Jensen NP Rh Nuclear Medicine Procedures NM Lexiscan stress test [address] [place] [address] [place] [address] Phone: Fax: Referral ID Status Reason Start Date Expiration Date Visits Requ ested Visits Authorized [id number] Closed 09/13/2020 09/13/2021 5 5 VITY AID Reason for Visit Reason Comments Hypertension Coronary Artery Disease Encounter Details Date Type Department Care Team Description 09/13/2020 Office Visit [facility] Milton Jensen rtery disease involving white mountain coronary artery of white mountain heart without angina pectoris (Primary Dx); Heart Clinic Yesi Genao NP Palpitations; [address] Essential hypertension; [address] [place] [address] Obstructive sleep apnea syndrome; [place] [phone] Atypical chest pain Social History Tobacco Use Types Packs/Day Years Used Date Smoking Tobacco: Never Smokeless Tobacco: Never Alcohol Use Standard Drinks/Week Comments Yes 0 (1 standard drink = 0.6 oz pure alcoho l) rare occasion Sex Assigned at Date Recorded Female 04/22/2020 2:54 PM CDT COVID-19 Exposure Response Date Recorded In the last month, have you been in contact with No / Unsure 09/13/2020 1:52 PM ACTIVITY AID someone who was confirmed or suspected to have Coronavirus / COVID-19? documented as of this encounter Last Filed Vital Signs Vital Sign Reading Time Taken Comments Blood Pressure 120/82 09/13/2020 2:04 PM ACTIVITY AID Pulse 62 09/13/2020 2:04 PM ACTIVITY AID Temperature - - Respiratory Rate - - Oxygen Saturation - - Inhaled Oxygen Concentration - - Weight 84.2 kg (185 lb 9.6 oz) 09/13/2020 2:04 PM ACTIVITY AID Height 162.6 cm (5' 4) 09/13/2020 2:04 PM ACTIVITY AID Body Mass Index 31.86 09/13/2020 2:04 PM ACTIVITY AID documented in this encounter Patient Instructions Patient InstructionsPaChadwick henderson NP - 09/13/2020 2:00 PM CST Images from the original note were not included. Thank you for your visit with the [facility] today. Today's plan: 1. Continue with your current medications. 2. We will plan to have you wear a 30-day event monitor to evaluate for the possibility of any rhythm issues contributing to your episodes of heart racing. 3. Let's check a stress test to rule out any new areas of blockage to the arteries of the heart contributing to your symptoms. 4. Follow up with Dr. Ford in about 2 months once the stress test and monitor are completed for review of the results. If you have questions or concerns in the meantime, please do not hesitate to call my nurse team at [phone]. Scheduling phone number: [phone] It was a pleasure seeing you today! Klever Jensen APRN, HOUSEHOLD APPLIANCES SALESPERSON Nurse Practitioner [facility] September 13, 2020 VITY AID documented in this encounter Progress Notes Chadwick Jensen NP - 09/13/2020 2:00 PM CST Images from the original note were not included. Cardiology Clinic Progress Note Service Date: September 13, 2020 Primary Steel Heater: Dr. Ford Reason for Visit: Follow up for palpitations HPI: I had the pleasure of meeting Ms. Kriss Song in the clinic today. She is a very pleasant 60 year old female with a past medical history notable for coronary artery disease, hypertension, dyslipidemia, psoriatic arthritis on methotrexate, CADENCE (did not tolerate CPAP), and obesity with a BMI of 31. In April 2020, she was admitted to [facility] in [facility] with a non-STEMI. Echocardiogram showed EF 55% with no wall motion abnormality and no valve disease. Coronary angiogram showed severe stenosis of a small OM 3 branch which was treated medically. Mild, non- obstructive disease was noted elsewhere. She last met with Dr. Ford in April 2020. She noted concerns for fatigue at that time, so he advised that she decrease her metoprolol dose to 12.5 mg twice daily. She was at a wedding in mid June 2020 and did get COVID. Fortunately, she had only mild symptoms. Ms. Song met with my colleague, Alo Steel PA-C, about 1 month ago. She was doing generally well at that time. Her issues with tiredness and fatigue had resolved on the lower dose metoprolol. Today, Kriss presents to the clinic in follow up due to concerns for episodic palpitations over the past month or so. She tells me that she has had 2 episodes over that timeframe. She called into the clinic on 08/09/2020 to report 1 of these episodes which lasted around 4-5 hours before resolving spontaneously. It was recommended that she go to the ER for evaluation and so that an EKG could be completed, but she did not end up going in because of symptoms resolve after calling. She had another similar episode few weeks later which lasted for a few hours before resolving spontaneously. She describes the symptoms as feeling like a fluttering in her chest. She has not had associated dizziness, presyncope, syncope, or shortness of breath. Her symptoms have not come on with any particular pattern. She she also notes occasional mild chest discomfort which she describes as a mild tightness in hermid substernal chest. This can occur at rest or with exertion and seems to come on completely randomly without any pattern. She feels this is different than her previous symptoms of chest discomfort that she felt prior to her coronary angiogram in April 2020. She felt that that was more severe and had some radiation to her jaw and shoulder. She tells me that she has been fairly sedentary since winter. She usually tries to go for walks regularly for exercise the weather is nicer, but has not been doing this as much as since the colder weather came. She denies excessive caffeine use. She does not drink alcohol in excess. She is a non-smoker does not use other drugs. An EKG was completed in the clinic today showing sinus bradycardia with a heart rate of 50 bpm and nonspecific T wave changes. ASSESSMENT AND PLAN: 1. Coronary artery disease - Recent coronary angiogram in April 2020 showing severe stenosis of a small OM 3 branch for which medical management was recommended. No other significant lesions were noted. - She has had intermittent atypical chest discomfort over the last month or so. My suspicion that this is ischemic in nature is low given her recent angiogram findings, however we will plan for a Lexiscan nuclear stress test to further rule out the possibility of any new areas of ischemia for an abundance of caution. - Continue current regimen of aspirin, Plavix, statin, and beta-azeb. 2. Palpitations - Etiology unclear. She does have a history of sleep apnea for which she did not previously tolerateCPAP raising the risk for possible paroxysmal atrial fibrillation. Since she has only had around 2 episodes over the last month, I recommended that she complete a 30-day event monitor for further evaluation. 3. Essential hypertension - Well-controlled. Continue current regimen. 4. Hyperlipidemia -Treated on atorvastatin 20 mg daily. 5. Obstructive sleep apnea - Currently untreated due to previous intolerance of CPAP. Thank you for the opportunity to participate in this pleasant patient's care. We will plan for her to see Dr. Ford to follow-up in about 2 months after completing the 30-day event monitor and Lexiscan nuclear stress test. I encouraged the patient call the clinic with any questions or concerns in the meantime. Klever Jensen APRN, HOUSEHOLD APPLIANCES SALESPERSON Nurse Practitioner [facility] Pager: [phone] Text Page (8am - 5pm, M-F) Orders this Visit: Orders Placed This Encounter Procedures ??? Follow-Up with Steel Heater ??? EKG 12-lead complete w/read - Clinics (performed today) ??? Cardiac Event Monitor Adult Pediatric Orders Placed This Encounter Medications ??? famotidine (PEPCID) 40 MG tablet Sig: Take 40 mg by mouth daily ??? lactobacillus rhamnosus, GG, (CULTURELL) capsule Sig: Take 1 capsule by mouth daily ??? Digestive Enzymes (DIGESTIVE ENZYME PO) Medications Discontinued During This Encounter Medication Reason ??? APPLE CIDER VINEGAR PO Medication Reconciliation Clean Up ??? pantoprazole (PROTONIX) 20 MG EC tablet Allergic response Encounter Diagnoses Name Primary? Coronary artery disease involving white mountain coronary artery of white mountain heart without angina pectorisYes ??? Palpitations ??? Essential hypertension ??? Obstructive sleep apnea syndrome ??? Atypical chest pain CURRENT MEDICATIONS: Current Outpatient Medications Medication Sig Dispense Refill ??? ASPIRIN LOW DOSE 81 MG EC tablet Take 81 mg by mouth daily ??? atorvastatin (LIPITOR) 40 MG tablet Take 40 mg by mouth daily ??? citalopram (CELEXA) 20 MG tablet Take 20 mg by mouth daily ??? clopidogrel (PLAVIX) 75 MG tablet Take 75 mg by mouth daily ??? Digestive Enzymes (DIGESTIVE ENZYME PO) ??? Doxylamine Succinate, Sleep, (SLEEP AID PO) Take by mouth as needed ??? ENBREL SURECLICK 50 MG/ML autoinjector 50 mg once a week ??? famotidine (PEPCID) 40 MG tablet Take 40 mg by mouth daily ??? folic acid (FOLVITE) 1 MG tablet Take 1 mg by mouth daily ??? lactobacillus rhamnosus, GG, (CULTURELL) capsule Take 1 capsule by mouth daily ??? losartan (COZAAR) 25 MG tablet Take 1 tablet (25 mg) by mouth daily 90 tablet 3 ??? methotrexate 2.5 MG tablet 15 mg every 7 days ??? metoprolol tartrate (LOPRESSOR) 25 MG tablet Take 12.5 mg by mouth 2 times daily ??? Multiple Vitamin (MULTI-VITAMINS) TABS Take by mouth daily ??? TURMERIC CURCUMIN PO Take by mouth daily ??? Vitamin D3 (VITAMIN D3) 25 mcg (1000 units) tablet Take 2,000 Units by mouth ALLERGIES Allergies Allergen Reactions ??? Sulfa Drugs Rash PAST MEDICAL, SURGICAL, FAMILY HISTORY: History was reviewed and updated as needed, see medical record. SOCIAL HISTORY: Social History Socioeconomic History ??? [...] file Gets together: Not on file Attends orthodoxy service: Not on file Active member of club or organization: Not on file Attends meetings of clubs or organizations: Not on file Relationship status: Not on file ??? Intimate partner violence Fear of current or ex partner: Not on file Emotionally abused: Not on file Physically abused: Not on file Forced sexual activity: Not on file Other Topics Concern ??? Parent/sibling w/ CABG, [place] or angioplasty before 65F 55M? Not Asked Social History Narrative ??? Not on file Review of Systems: Skin: Negative Eyes: Negative ENT: Negative Respiratory: Negative Cardiovascular: Positive for;chest pain(left side) Gastroenterology: Negative Genitourinary: Negative Musculoskeletal: Positive for arthritis Neurologic: Negative Psychiatric: Negative Heme/Lymph/Imm: Negative Endocrine: Negative Physical Exam: Vitals: BP 120/82 Pulse 62 Ht 1.626 m (5' 4) Wt 84.2 kg (185 lb 9.6 oz) BMI 31.86 kg/m?? Wt Readings from Last 4 Encounters: 09/13/20 84.2 kg (185 lb 9.6 oz) 08/05/20 82.4 kg (181 lb 9.6 oz) 05/03/20 79.8 kg (176 lb) CONSTITUTIONAL: Appears her stated age, well nourished, and in no acute distress. HEENT: Pupils equal, round. Sclerae nonicteric. C/V: Regular rate and rhythm, normal S1 and S2, no S3 or S4, no murmur, rub or gallop. RESP: Respirations are unlabored. Lungs are clear to auscultation bilaterally without wheezing, rales, or rhonchi. EXTREM: No clubbing, cyanosis, or lower extremity edema bilaterally. NEURO: Alert and oriented, cooperative. Gait steady. No gross focal deficits. PSYCH: Affect appropriate. Mentation normal. Responds to questions appropriately. SKIN: Warm and dry. No apparent rashes. Recent Lab Results: LIPID RESULTS: Lab Results Component Value Date CHOL 150 08/11/2020 HDL 62 04/03/2020 LDL 145 04/03/2020 TRIG 131 08/11/2020 CC Rahul Ford MD [address] [address] This note was completed in part using [employer] voice recognition software. Although reviewed after completion, some word and grammatical errors may occur. VITY AID documented in this encounter Plan of Treatment Scheduled Referrals Name Type Priority Associated Diagnoses Order S chedule Follow-Up with Referral Routine Coronary artery Expected: 11/11/2020 Steel Heater disease involving (Approxima te), white mountain coronary artery Expir es: 09/13/2022 of white mountain heart without angina pectoris Palpitations Essential hypert ension Obstructive sleep apnea syndrome Atypical chest pain documented as of this encounter Procedures Procedure Name Priority Date/Time Associated Diagnosis Comme nts EKG 12-LEAD Routine 09/13/2020 3:00 PM Palpitations Results for this COMPLETE W/READ - ACTIVITY AID Atypical chest pain pro cedure are in CLINICS the results section. documented in this encounter Results CARDIAC EVENT MONITOR APPLICATION AND PROVIDER INTERPRETATION (09/20/2020 8:26 AM ACTIVITY AID) Anatomical Region Laterality Modality Other Specimen (Source) Anatomical Location Collection Method / Collectio n Time Received Time / Laterality Volume Narrative This result has an attachment that is no t available. Chadwick Jensen NP CV CARDIAC SERVICES ORDERABL ES NM Lexiscan stress test (09/16/2020 1:55 PM ACTIVITY AID) P athologist Signature Target HR 161 RADIANT [...] / Laterality Volume Narrative 09/16/2020 2:31 PM ACTIVITY AID ?The nuclear stress test is abnormal. ?There [...] al. Chadwick Jensen NP IMG NM ORDERABLES EKG 12-lead complete w/read - Clinics (performed today) (09/13/2020 3:00 PM ACTIVITY AID) Narrative This result has an attachment that is no t available. Chadwick Jensen NP ECG ORDERABLES documented in this encounter Visit Diagnoses Diagnosis Coronary artery disease involving white mountain coronary artery of white mountain heart without angina pectoris - Primary Palpitations Essential hypertension Unspecified essential hypertension Obstructive sleep apnea syndrome Obstructive sleep apnea (adult) (pediatr ic) Atypical chest pain Other chest pain Coronary artery disease involving white mountain coronary artery of white mountain heart without angina pectoris Palpitations Atypical chest pain Other chest pain documented in this encounter Care Teams Show Operations Supervisor Relationship Specialty Start Date End Date Yamila Dave, PCP - General Physician Finishing Wire Sawyer 04/14/20 [facility] [address] [place] [address] Rahul Ford Assigned Heart and 06/25/2011/01 MD [facility] Provider [facility] [address] [place] [address] documented as of this encounter
--- OUTSIDE RECORDS SUMMARY | 2022-06-15 08:56 | XMS_ITS | Encounter Summary ---
:1960 Author Organization [place] Address [facility] [place] [address] Care Team Providers Name Role Phone Yamila Dave PA-C Primary Care Provider Encounter Details Date Type Department Care Team Description 06/07/2020 Travel Social History Tobacco Use Types Packs/Day [...] on filedocumented in this encounter Care Teams Grinding Machine Operator Automatic Relationship Specialty Start Date End Date Yamila Dave PA-C PCP - General Physician Information Broker 04/14/20 [facility] [address] [place] [address] documented as of this encounter
--- OUTSIDE RECORDS SUMMARY | 2022-06-15 08:56 | XMS_ITS | Encounter Summary ---
:1960 Author Organization [facility] Address [address] [place] [address]. [place] [address] Care Team Providers Name Role Phone Yamila Dave PA-C Primary Care Provider [phone] Encounter Details Date Type Department Care Team Description 06/16/2020 Telephone [facility] Adamaris Tan RN [facility] [id number] [facility] [address] [place] [address] Social History Tobacco Use [...] / COVID-19? documented as of this encounter Miscellaneous Notes Telephone Encounter - Adamaris Tan RN - 06/16/2020 10:43 AM CDT Pt called, states she was at a wedding last week and everyone there got COVID. She is symptomatic w/cold and flu-like symptoms. Wants to know what she should take. She has recent NSTEMI, CAD (no PCI).Pt has a PCP visit today and COVID test scheduled. She is sure she has COVID. I asked pt to discuss with her PCP regarding treatment for her symptoms. Advised she should avoid ibuprofen however depending on what her PCP may recommend, they can also run a check through her meds to determine if safe. Pt understood. Ana ROWAN, BSN 06/16/20 10:48 AM documented in this encounter Plan of Treatment Not on filedocumented as of this encounter Visit Diagnoses Not on filedocumented in this encounter Care Teams Marine Surveyor Relationship Specialty Start Date End Date Yamila Dave PA-C PCP - General Physician Assessment Analyst 04/14/20 [facility] [address] [place] [address] documented as of this encounter
--- OUTSIDE RECORDS SUMMARY | 2022-06-15 08:56 | XMS_ITS | Encounter Summary ---
:1960 Author Organization [place] Address [address] [place] [address]. [place] [address] Care Team Providers Name Role Phone Yamila Dave PA-C Primary Care Provider [phone] Encounter Details Date Type Department Care Team Description 06/04/2020 Travel Social History Tobacco Use Types Packs/Day [...] on filedocumented in this encounter Care Teams Glass Wool Blanket Machine Feeder Relationship Specialty Start Date End Date Yamila Dave PA-C PCP - General Physician Janitor And Cleaner 04/14/20 [facility] [address] [place] [address] documented as of this encounter
--- OUTSIDE RECORDS SUMMARY | 2022-06-15 08:56 | XMS_ITS | Encounter Summary ---
:1960 Author Organization [place] Address [address] [place] [address]. [place] [address] Care Team Providers Name Role Phone Yamila Dave PA-C Primary Care Provider [phone] Encounter Details Date Type Department Care Team Description 06/09/2020 Travel Social History Tobacco Use Types Packs/Day [...] on filedocumented in this encounter Care Teams Adult Caregiver Relationship Specialty Start Date End Date Yamila Dave PA-C PCP - General Physician Lime Burner 04/14/20 [facility] [address] [place] [address] documented as of this encounter
--- OUTSIDE RECORDS SUMMARY | 2022-06-15 08:56 | XMS_ITS | Encounter Summary ---
:1960 Author Organization [place] Address [address] [facility] [place] [address] Care Team Providers Name Role Phone Yamila Dave PA-C Primary Care Provider Rahul Ford MD Unavailable Encounter Details Date Type Department Care Team Description 07/01/2020 Travel Social History Tobacco Use Types Packs/Day Years Used Date Smoking Tobacco: Never Smokeless Tobacco: Never Alcohol Use Standard Drinks/Week Comments Yes 0 (1 standard drink = 0.6 oz pure alcoho l) rare occasion Sex Assigned at Date Recorded Female 04/22/2020 2:54 PM CDT COVID-19 Exposure Response Date Recorded In the last month, have you been in contact with No / Unsure 07/01/2020 11:14 AM CDT someone who was confirmed or suspected to have Coronavirus / COVID-19? documented as of this encounter Plan of Treatment Not on filedocumented as of this encounter Visit Diagnoses Not on filedocumented in this encounter Care Teams Latcher Relationship Specialty Start Date End Date Yamila Dave, PCP - General Physician Thaw Shed Heater Tender 04/14/20 [facility] [address] [place] [address] Rahul Ford Assigned Heart and 06/25/2011/01 MD [facility] Provider [facility] [address] [facility] [place] [address] documented as of this encounter
--- OUTSIDE RECORDS SUMMARY | 2022-06-15 08:56 | XMS_ITS | Encounter Summary ---
:1960 Author Organization [place] Address [address] [facility] [place] [address] Care Team Providers Name Role Phone Yamila Dave PA-C Primary Care Provider [phone] Rahul Ford MD Unavailable [phone] Encounter Details Date Type Department Care Team Description 09/13/2020 Travel Social History Tobacco Use Types Packs/Day [...] with No / Unsure 09/13/2020 1:52 PM HEDIS REVIEW NURSE someone who was confirmed or suspected to have Coronavirus / COVID-19? documented as of this encounter Plan of Treatment Not on filedocumented as of this encounter Visit Diagnoses Not on filedocumented in this encounter Care Teams Grievance Manager Relationship Specialty Start Date End Date Yamila Dave, PCP - General Physician Commercial Makeup Artist 04/14/[address] [facility] [address] [place] [address] Rahul Ford Assigned Heart and 06/25/2011/01 MD [facility] Provider [facility] [address] [place] [address] documented as of this encounter
--- OUTSIDE RECORDS SUMMARY | 2022-06-15 08:57 | XMS_ITS | Encounter Summary ---
:1960 Author Organization [place] Address [address] [place] [address] Care Team Providers Name Role Phone Yamila Dave PA-C Primary Care Provider [phone] Reason for Visit Rehab Therapy Cardiac Therapy (Routine) - Closed Specialty Diagnoses / Procedures Referred By Contact Refer red To Contact CARDIAC REHAB Procedures [facility] CARDIAC [facility] [address] [place], [place] [address] Phone: Fax: Referral ID Status Reason Start Date Expiration Date Visits Requ ested Visits Authorized [id number] Closed 04/14/2020 09/02/2020 365 365 Encounter Details Date Type Department Care Team Description 04/27/2020 Hospital Encounter [facility] Cardiac Mary Lou Arlyn castaneda PA-C [facility] [address] [place] [address] and Pulmonary 2, Rh Cardiac Rehab Rehabilitation [facility] [address] [facility] [address] [place] [address] Social History Tobacco Use Types Packs/Day Years Used Date Smoking Tobacco: Never Assessed Sex Assigned at Date Recorded Female 04/22/2020 2:54 PM CDT COVID-19 Exposure Response Date Recorded In the last month, have you been in contact with No / Unsure 04/27/2020 9:28 AM CDT someone who was confirmed or suspected to have Coronavirus / COVID-19? documented as of this encounter Medications at Time of Discharge Medication Sig Dispensed Refills Start Date End Date citalopram (CELEXA) 20 Take 20 mg by mouth 0 08/01/2020 MG tablet daily folic acid (FOLVITE) 1 Take 1 mg by mouth 0 12/20 MG tablet daily methotrexate 2.5 MG 15 mg every 7 days 0 01/09/20 20 tablet ASPIRIN LOW DOSE 81 MG Take 81 mg by mouth 0 08/0 10/201903/21/2021 EC tablet daily atorvastatin (LIPITOR) Take 40 mg by mouth 0 08/0 10/201903/21/2021 40 MG tablet daily citalopram (CELEXA) 10 citalopram 10 mg 0 05/03/2020 MG tablet tablet clopidogrel (PLAVIX) 75 Take 75 mg by mouth 0 09/201902/22/2022 MG tablet daily fish oil-omega-3 fatty 1,200 mg 0 09/03/2014 acids 1000 MG capsule losartan-hydrochlorothia Take 1 tablet by 0 12/2305/03/2020 zide (HYZAAR) 50-12.5 MG mouth daily tablet metoprolol tartrate Take 12.5 mg by mouth 0 04/0403/21/2021 (LOPRESSOR) 25 MG tablet 2 times daily omeprazole (PRILOSEC) 20 TAKE ONE CAPSULE BY 0 05/03/[address] capsule MOUTH DAILY NEEDED pantoprazole (PROTONIX) Take 20 mg by mouth 0 10/201909/13/2020 20 MG EC tablet daily documented as of this encounter Plan of Treatment Not on filedocumented as of this encounter Visit Diagnoses Not on filedocumented in this encounter Care Teams Pneumatic Tool Operator Relationship Specialty Start Date End Date Yamila Dave PA-C PCP - General Physician Laboratory Worker 04/14/20 [facility] [address] [place] [address] documented as of this encounter
--- OUTSIDE RECORDS SUMMARY | 2022-06-15 08:57 | XMS_ITS | Encounter Summary ---
:1960 Author Organization [place] Address [address] [facility] [place] [address] Care Team Providers Name Role Phone No Ref-Primary, Physician Primary Care Provider [phone] Encounter Details Date Type Department Care Team Description 01/25/2020 Travel Social History Tobacco Use Types Packs/Day Years Used Date Smoking Tobacco: Never Assessed Sex Assigned at Date Recorded Female 04/22/2020 2:54 PM CDT COVID-19 Exposure Response Date Recorded In the last month, have you been in contact with No / Unsure 01/25/2020 12:31 PM CDT someone who was confirmed or suspected to have Coronavirus / COVID-19? documented as of this encounter Plan of Treatment Not on filedocumented as of this encounter Visit Diagnoses Not on filedocumented in this encounter Care Teams Motel Front Desk Attendant Relationship Specialty Start Date End Date No Ref-Primary, Physician PCP - General 09/04/19 04/13/20 documented as of this encounter
--- OUTSIDE RECORDS SUMMARY | 2022-06-15 08:57 | XMS_ITS | Encounter Summary ---
:1960 Author Organization [place] Address [address] [place] [address] Care Team Providers Name Role Phone Yamila Dave PA-C Primary Care Provider [phone] Reason for Visit Rehab Therapy Cardiac Therapy (Routine) - Closed Specialty Diagnoses / Procedures Referred By Contact Refer red To Contact CARDIAC REHAB Procedures [facility] CARDIAC [facility] [address] [place], [place] [address] Phone: Fax: Referral ID Status Reason Start Date Expiration Date Visits Requ ested Visits Authorized [id number] Closed 04/14/2020 09/02/2020 365 365 Encounter Details Date Type Department Care Team Description 05/18/2020 Hospital Encounter [facility] Cardiac Mary Lou Arlyn castaneda PA-C [facility] [address] [place] [address] and Pulmonary 2, Rh Cardiac Rehab Rehabilitation [facility] [address] [place] [address] Social History Tobacco Use [...] been in contact with No / Unsure 05/18/2020 9:31 AM CDT someone who was confirmed or [...] on filedocumented in this encounter Care Teams Dairy Worker Relationship Specialty Start Date End Date Yamila Dave PA-C PCP - General Physician Academic Physician 04/14/20 [facility] [address] [place] [address] documented as of this encounter
--- OUTSIDE RECORDS SUMMARY | 2022-06-15 08:57 | XMS_ITS | Encounter Summary ---
:1960 Author Organization [place] Address [address] [facility] [address] Care Team Providers Name Role Phone Yamila Dave PA-C Primary Care Provider [phone] Reason for Visit Rehab Therapy Cardiac Therapy (Routine) - Closed Specialty Diagnoses / Procedures Referred By Contact Refer red To Contact CARDIAC REHAB Procedures [facility] CARDIAC [facility] [address] [place], [place] [address] Phone: Fax: Referral ID Status Reason Start Date Expiration Date Visits Requ ested Visits Authorized [id number] Closed 04/14/2020 09/02/2020 365 365 Encounter Details Date Type Department Care Team Description 05/14/2020 Hospital Encounter [facility] Cardiac Mary Lou Arlyn castaneda PA-C [facility] [address] [place] [address] and Pulmonary 1, Rh Cardiac Rehab Rehabilitation [facility] [address] [place] [address] Social History Tobacco Use [...] been in contact with No / Unsure 05/14/2020 10:00 AM CDT someone who was confirmed [...] on filedocumented in this encounter Care Teams Meat Grader Relationship Specialty Start Date End Date Yamila Dave PA-C PCP - General Physician Operations Supervisor Chemical Cleaning 04/14/20 [facility] [address] [place] [address] documented as of this encounter
--- OUTSIDE RECORDS SUMMARY | 2022-06-15 08:57 | XMS_ITS | Encounter Summary ---
:1960 Author Organization [place] Address [address] [facility] [place] [address] Care Team Providers Name Role Phone Yamila Dave PA-C Primary Care Provider [phone] Reason for Visit Rehab Therapy Cardiac Therapy (Routine) - Closed Specialty Diagnoses / Procedures Referred By Contact Refer red To Contact CARDIAC REHAB Procedures [facility] CARDIAC [facility] [address] [place], [place] [address] Phone: Fax: Referral ID Status Reason Start Date Expiration Date Visits Requ ested Visits Authorized [id number] Closed 04/14/2020 09/02/2020 365 365 Encounter Details Date Type Department Care Team Description 06/02/2020 Hospital Encounter [facility] Cardiac Mary Lou Arlyn castaneda PA-C [facility] [address] [place] [address] and Pulmonary 1, Rh Cardiac Rehab Rehabilitation [facility] [address] [place] [address] Social History Tobacco Use [...] been in contact with No / Unsure 06/02/2020 10:06 AM CDT someone who was confirmed or [...] on filedocumented in this encounter Care Teams Type Disk Quality Control Supervisor Relationship Specialty Start Date End Date Yamila Dave PA-C PCP - General Physician Decision Support Analyst 04/14/[address] [facility] [address] [place] [address] documented as of this encounter
--- OUTSIDE RECORDS SUMMARY | 2022-06-15 08:57 | XMS_ITS | Encounter Summary ---
:1960 Author Organization [place] Address [address] [place] [address]. [place] [address] Care Team Providers Name Role Phone Yamila Dave PA-C Primary Care Provider [phone] Encounter Details Date Type Department Care Team Description 05/12/2020 Travel Social History Tobacco Use Types Packs/Day Years Used Date Smoking Tobacco: Never Smokeless Tobacco: Never Alcohol Use Standard Drinks/Week Comments Yes 0 (1 standard drink = 0.6 oz pure alcoho l) rare occasion Sex Assigned at Date Recorded Female 04/22/2020 2:54 PM CDT COVID-19 Exposure Response Date Recorded In the last month, have you been in contact with No / Unsure 05/12/2020 8:55 AM CDT someone who was confirmed or suspected to have Coronavirus / COVID-19? documented as of this encounter Plan of Treatment Not on filedocumented as of this encounter Visit Diagnoses Not on filedocumented in this encounter Care Teams Field Services Analyst Relationship Specialty Start Date End Date Yamila Dave PA-C PCP - General Physician Bear Keeper 04/14/20 [facility] [address] [place] [address] documented as of this encounter
--- OUTSIDE RECORDS SUMMARY | 2022-06-15 08:57 | XMS_ITS | Encounter Summary ---
:1960 Author Organization [place] Address [address] [place] [address]. [place] [address] Care Team Providers Name Role Phone Yamila Dave PA-C Primary Care Provider [phone] Encounter Details Date Type Department Care Team Description 05/05/2020 Travel Social History Tobacco Use Types Packs/Day Years Used Date Smoking Tobacco: Never Smokeless Tobacco: Never Alcohol Use Standard Drinks/Week Comments Yes 0 (1 standard drink = 0.6 oz pure alcoho l) rare occasion Sex Assigned at Date Recorded Female 04/22/2020 2:54 PM CDT COVID-19 Exposure Response Date Recorded In the last month, have you been in contact with No / Unsure 05/05/2020 2:58 PM CDT someone who was confirmed or suspected to have Coronavirus / COVID-19? documented as of this encounter Plan of Treatment Not on filedocumented as of this encounter Visit Diagnoses Not on filedocumented in this encounter Care Teams Screen Tacker Relationship Specialty Start Date End Date Yamila Dave PA-C PCP - General Physician Ski Instructor 04/14/20 [facility] [address] [place] [address] documented as of this encounter
--- OUTSIDE RECORDS SUMMARY | 2022-06-15 08:57 | XMS_ITS | Encounter Summary ---
:1960 Author Organization [place] Address [address] [facility] [place] [address] Care Team Providers Name Role Phone No Ref-Primary, Physician Primary Care Provider [phone] Reason for Visit Reason Comments Urgent Care Insect Bites Possible tick bite on Lt arm , went to hike -4 days ago noticed rash on the arm. Had low grade fever and felt fatigue 2 days post hiking. Encounter Details Date Type Department Care Team Description 01/25/2020 Office Visit [facility] Arianna Carrasco Tick bit e, initial encounter (Primary Dx); Urgent Care MD Ana Immunosuppression (H) [place] [address] [address] [place] [phone] Social History Tobacco Use Types Packs/Day Years [...] Sign Reading Time Taken Comments Blood Pressure 122/80 01/25/2020 12:42 PM CDT Pulse 65 01/25/2020 12:42 PM CDT Temperature 36.8 ??C (98.3 ??F) 01/25/2020 12:42 PM CDT Respiratory Rate - - Oxygen Saturation 96% 01/25/2020 12:42 PM CDT Inhaled Oxygen Concentration - - Weight - - Height - - Body Mass Index - - documented in this encounter Patient Instructions Patient InstructionsArianna Carrasco MD - 01/25/2020 12:30 PM CDT Images from the original note were not included. Patient Education Tick Bites Ticks are small arachnids that feed on the blood of rodents, rabbits, birds, deer, dogs, and people.A tick bite may cause a reaction like a spider bite. You may have redness, itching, and slight swelling at the site. Sometimes you may have no reaction where the tick bit you. Ticks may gorge themselves for days before you find and remove them. The bites themselves aren't cause for concern. But ticks can carry and pass on illnesses such as Lyme disease and [place] spotted fever. Both diseases begin with a rash and symptoms similar to the flu. In advanced stages, these diseases can be quite serious. A bull's eye rash is a common symptom of Lyme disease. When to go to the emergency room (ER) Not all ticks carry disease. And a tick must stay attached for at least 24 hours to infect you. If you find a tick, don't panic. Try to carefully remove it with tweezers. Grasp the tick near its head and pull without twisting. If you can't easily dislodge the tick or if you leave the head in your skin, get medical care right away. What to expect in the ER ?? The tick or any parts of the tick will be removed and the bite will be cleaned. ?? To prevent disease, you may be given antibiotics. Both Lyme disease and [place] spotted fever respond quickly to these medicines. ?? You may be asked to see your healthcare provider for a blood test to check for Lyme disease. Follow-up care Some states and counties have services that test ticks for??Lyme disease and other diseases. Check with your local officials to see if this service is available in your area. If you remove a tick yourself, watch for signs of a tick-borne illness. Symptoms may show up within a few days or weeks after a bite. Call your healthcare provider if you notice any of the following: ?? Rash. The rash may spread outward in a ring from a hard white lump. Or it may move up your arms and legs to your chest. ?? Chills and fever ?? Body aches and joint pain ?? Severe headache Date Last Reviewed: 08/03/2016 ?? [id number] [employer]. [address] [place] [address], [place] [address]. All rights reserved. This information is not intended as a substitute for professional medical care. Always follow your healthcare professional's instructions. Patient Education Lyme Disease Lyme disease is caused by bacteria. The infection is most often passed during the bite of a deer tick. The tick is very small, so many people with Lyme disease don't know they have been bitten. Tests for Lyme disease are not always accurate early in the disease. If the disease is suspected, treatment may start before testing confirms the infection. A long course of antibiotics is the standard treatment. If untreated, Lyme disease can cause symptoms in many parts of the body that may worsen. ?? Early symptoms limited to a small area may appear within a few days to a month after the tick bite. These symptoms may include a round, red rash that sometimes looks like a bull's-eye target with darker outer ring and a darker center. There may fever, chills, fatigue, body aches, and headache. In time, the rash goes away, even without treatment. That doesn't mean the infection has gone away, however. In some cases, early local symptoms never develop. ?? Early body-wide symptoms may appear weeks to months after the bite. These can include rashes on the skin of various parts of the body, muscle aches, fatigue, fever, headache, stiff neck, weakness onone side of the face, dizziness, palpitations, passing out, and joint pain and swelling. ?? Late-stage symptoms can include weakness in an arm, or leg, headache, fever, and numbness and tingling in the arms or legs, joint pain and swelling, confusion, and memory loss. ?? Many people will have left over symptoms even after treatment and cure of the Lyme disease. Theseare called post-Lyme symptoms and may include fatigue, body aches, joint aches, and headaches, whichgenerally improve with time. Repeated courses of antibiotics don't help these symptoms to resolve faster. And, having the symptoms after a course of treatment does not mean that the Lyme bacteria is still active in the body. Testing is done to check for the bacteria. When the infection is treated early, it can be cured. In some cases, a second or third course of antibiotics may be needed. Be sure to follow your healthcare providers directions about treatment. Home care If antibiotic pills have been prescribed, take them exactly as directed until they are completely gone. Don't stop taking them until you have taken the full course or your healthcare provider has told you to stop. Ask your healthcare provider about taking [id number] medicines to control symptoms such as aches and fever. Follow-up care Follow up with your healthcare provider, or as advised. Be sure to return for follow-up testing as directed to be sure the infection has been treated. When to seek medical advice Call your healthcare provider right away if any of the following occur: ?? Current symptoms get worse ?? Unexplained fever, neck pain or stiffness, or headache ?? Arm, leg or facial weakness ?? Joint pain or swelling ?? Numbness and tingling in the arms or legs ?? Confusion or memory loss ?? Irregular or rapid heartbeat, palpitations, dizziness, or passing out Date Last Reviewed: 11/01/2017 ?? [id number] [employer]. [address] [place] [address]. All rights reserved. This information is not intended as a substitute for professional medical care. Always follow your healthcare professional's instructions. documented in this encounter Progress Notes Arianna Carrasco MD - 01/25/2020 12:30 PM CDT SUBJECTIVE: Chief Complaint Patient presents with ??? Urgent Care ??? Insect Bites Possible tick bite on Lt arm, went to hike -4 days ago noticed rash on the arm. Had low grade feverand felt fatigue 2 days post hiking. Kriss Song is a 59 year old female who presents to the clinic today for a possible tick bite with accompanying rash. She presents to the clinic today with an oval rash about the size of 4 x 4 cm with concern that it may be due to a tick bite. No tick was removed from the skin recently but she was hiking an an area with many ticks discovered Onset of rash was 2 day(s) ago. Also has felt fatigue and feverish- No exposure to Covid 19 Rash is sudden onset and still present. Location of the rash: left Forearm, near the wrist. Quality/symptoms of rash: red and asymptomatic Symptoms are mild and rash seems to be not changing over the course of time. No associated , chest pain, shortness of breath She has a history of psoriatic arthritis- taking methotrexate and Humira for immunosuppression. No past medical history on file. Patient Active Problem List Diagnosis ??? Essential hypertension ??? Gastroesophageal reflux disease ??? Iron deficiency anemia ??? Obesity ??? Obstructive sleep apnea syndrome ??? Vitamin D deficiency ALLERGIES: Sulfa drugs MEDs citalopram (CELEXA) 10 MG tablet, citalopram 10 mg tablet folic acid (FOLVITE) 1 MG tablet, losartan-hydrochlorothiazide (HYZAAR) 50-12.5 MG tablet, Take 1 tablet by mouth daily methotrexate 2.5 MG tablet, omeprazole (PRILOSEC) [address] capsule, TAKE ONE CAPSULE BY MOUTH DAILY NEEDED No current facility-administered medications on file prior to visit. Social Hx- no smoking Family History: Non-contributory, No associated family health conditions ROS: CONSTITUTIONAL:reports mild fever, no chills EYES: NEGATIVE for vision changes or irritation ENT/MOUTH: NEGATIVE for ear, mouth and throat problems RESP:NEGATIVE for significant cough or SOB GI: NEGATIVE for nausea, abdominal pain, , or change in bowel habits EXAM: BP 122/80 (BP Location: Right arm, Patient Position: Chair, Cuff Size: Adult Large) Pulse 65 Temp 98.3 ??F (36.8 ??C) (Tympanic) SpO2 96% GENERAL: alert, no acute distress. SKIN: Rash description: Distribution: localized Location: left forearm 4 x 4 cm Color: red, Lesion type: macular, oval with no other findings EYES: EOMI, conjunctiva clear HENT: External ears with no swelling or lesions Nose and lips without Swelling, ulcers, erythema or lesions NECK: normal pain free ROM RESP: no labored respirations, no tachypnea EXTREMITIES: Full ROM without expression of pain or limitation x 4 extremities NEURO: Normal strength and tone, ambulation without difficulty, normal speech and mentation PSYCH: mentation and affect appears normal and patient appearance--appropriately groomed ASSESSMENT: Tick bite, initial encounter - doxycycline hyclate (VIBRAMYCIN) 100 MG capsule; Take 1 capsule (100 mg) by mouth 2 times daily for 14 days - Lyme Disease Lavonne with reflex to WB Serum; Future Patient agreed to prophylactic treatment of the tick bite/ Possible Lyme disease We discussed the limitations of Lyme Disease testing early in the disease process and the need for possible repeat titer in the future or if symptoms are worsening. Lyme testing ordered For future Given patient information on Lyme disease. Immunosuppression (H) due to history of immunosuppression, Arthritis history patient is very concerned about preventing risk to Lyme Disease. She understands she has some increased risk due to her immunosuppressive medications documented in this encounter Plan of Treatment Not on filedocumented as of this encounter Results Lyme Disease Lavonne with reflex to WB Serum (02/25/2020 10:35 AM CDT) athologist Signature Lyme Disease 0.06 0.00 - 02/26/2020 INFECTIOUS Antibodies 0.89 10:08 AM CDT DISEASES Serum DIAGNOSTIC LABORATORY Comment: Negative, Absence of detectable Borrelia burdorferi antibodies. A negative result does not exclude the possibility of Borrelia burgdorferi infection. If early Lyme disease is suspected, a secon d sample should be collected and tested 2 to 4 weeks later. Specimen Anatomical Collection Method Collection Time Receive d Time (Source) Location / / Volume Laterality Blood specimen 02/25/2020 10:35 0 (specimen) AM CDT 10:36 AM CDT Arianna Carrasco MD LAB - BLOOD ORDERABLES Performing Organization Address City/State/ZIP Code Phon e Number INFECTIOUS DISEASES [address] [place] [address] DIAGNOSTIC LABORATORY, [facility] INFECTIOUS DISEASES [address] [place] [address], [place] [facility] documented in this encounter Visit Diagnoses Diagnosis Tick bite, initial encounter - Primary Immunosuppression (H) Unspecified disorder of immune mechanism documented in this encounter Care Teams Consulting Solution Director Relationship Specialty Start Date End Date No Ref-Primary, Physician PCP - General 09/04/19 04/13/20 documented as of this encounter
--- OUTSIDE RECORDS SUMMARY | 2022-06-15 08:57 | XMS_ITS | Encounter Summary ---
:1960 Author Organization [place] Address [address] [place] [address] Care Team Providers Name Role Phone Yamila Dave PA-C Primary Care Provider [phone] Reason for Visit Rehab Therapy Cardiac Therapy (Routine) - Closed Specialty Diagnoses / Procedures Referred By Contact Refer red To Contact CARDIAC REHAB Procedures [facility] CARDIAC [facility] [address] [place], [place] [address] Phone: Fax: Referral ID Status Reason Start Date Expiration Date Visits Requ ested Visits Authorized [id number] Closed 04/14/2020 09/02/2020 365 365 Encounter Details Date Type Department Care Team Description 05/05/2020 Hospital Encounter [facility] Cardiac Admit, Dr Wily and Pulmonary Arlyn Schwab PA-C [facility] [address], [place] [address] Rehabilitation [facility] [address] [facility] [address] [place] [address] Social History Tobacco Use [...] in contact with No / Unsure 05/05/2020 10:10 AM CDT someone who was confirmed or [...] documented as of this encounter Progress Notes Courtney Almaguer P, RD, LD - 05/05/2020 10:11 AM CDT NUTRITION ASSESSMENT & EDUCATION NOTE REASON FOR ASSESSMENT Kriss Song is a 59 year old female seen by Registered Dietitian for 1:1 Cardiac Rehab consult NUTRITION HISTORY ?? Information obtained from patient ?? Patient has been instructed to follow a Mediterranean diet ?? Previous diet education: yes, CHF (low sodium) with father ?? Patient has attended no nutrition classes offered by cardiac rehab - plans on attending Nutrition2 ?? Nutrition-related goals: learn more from RD, interested in nutrition ?? Grocery shopping, cooking: patient and sister ?? Frequency of eating out: 1 x per week Typical intake as follows: eats 2 x per day - Breakfast: coffee and coffeemate creamer - Lunch: yogurt with fruit and granola OR salad (spinach, carrots, tomatoes, olives and own vinaigrette) - Dinner: varies, portion control. [place] OR Chicken with tomatoes, mozzarella and pesto - Snacks: dried cereal (sugar smacks, froot loops) at night - Fluids: 2 bottles of water and 1 diet coke ?? Changes to diet since cardiac event: not too many, some changes over th last couple of months. More aware of not eating red meat (1 x per week). Includes feta cheese in salad as protein. Switched towhole grain bread. ?? Barriers to dietary changes: none, habits NUTRITION DIAGNOSIS Food- and nutrition- related knowledge deficit related to heart healthy diet as evidenced by limitedprior education on the aforementioned diet INTERVENTIONS Nutrition Prescription: Cardiac diet: Low saturated fat, Na <2400 mg Fiber >25 g per day Emphasis on plate method for balanced meals Implementation ??? Assessed learning needs and learning preference. ??? Nutrition Education (Content): a) Provided handouts: a. Nutrition 1 slide show b. Seasoning without salt c. Heart Healthy Diet handout from the nutrition care manual b) Discussed heart healthy diet recommendations minimizing added salts/saturated fats/sugars, balanced meals TID, heart healthy substitutes, eliminating all trans fat, sugar free beverages. ??? Nutrition Education (Application): a) Discussed eating habits and recommended alternative food choices: a. Emphasized fruits, vegetables, low sodium nuts/heart healthy fats, fish, low fat dairy b. Reviewed recipes and new food ideas such as beans, lentils, vegetables and tofu for an increase in plant based options c. Encouraged water and non sugar sweetened beverages d. Discussed cooking more from scratch to monitor meal ingredients, portions, menu choices e. Encouraged pt to break the habit of the sugar cereals at the end of the day by substituting with tea. Goals/Follow up/Monitoring For Cardiac Rehab Staff ?? Adherence to nutrition related recommendations, follow with cardiac rehab ?? Additional questions/concerns related to heart healthy guidelines Courtney Almaguer RD, [facility] Cardiac and Pulmonary Rehab Office: [phone] DIRECT PATIENT CARE TIME: 35 MINUTES documented in this encounter Plan of Treatment Not on filedocumented as of this encounter Visit Diagnoses Not on filedocumented in this encounter Care Teams Bellstand Attendant Relationship Specialty Start Date End Date Yamila Dave PA-C PCP - General Physician Printer Operator 04/14/20 [facility] [address] [place] [address] documented as of this encounter
--- OUTSIDE RECORDS SUMMARY | 2022-06-15 08:57 | XMS_ITS | Encounter Summary ---
:1960 Author Organization [place] Address [address] [place] [address] Care Team Providers Name Role Phone Yamila Dave PA-C Primary Care Provider [phone] Reason for Visit Rehab Therapy Cardiac Therapy (Routine) - Closed Specialty Diagnoses / Procedures Referred By Contact Refer red To Contact CARDIAC REHAB Procedures [facility] CARDIAC [facility] [address] [place], [place] [address] Phone: Fax: Referral ID Status Reason Start Date Expiration Date Visits Requ ested Visits Authorized [id number] Closed 04/14/2020 09/02/2020 365 365 Encounter Details Date Type Department Care Team Description 04/30/2020 Hospital Encounter [facility] Cardiac Admit, Dr Wily and Pulmonary Arlyn Schwab PA-C [facility] [address], [place] [address] Rehabilitation [facility] 1, Rh Cardiac Rehab [address] [facility] [address] [place] [address] Social History Tobacco Use Types Packs/Day Years Used Date Smoking Tobacco: Never Assessed Sex Assigned at Date Recorded Female 04/22/2020 2:54 PM CDT COVID-19 Exposure Response Date Recorded In the last month, have you been in contact with No / Unsure 04/30/2020 3:04 PM CDT someone who was confirmed or suspected to have Coronavirus / COVID-19? documented as of this encounter Medications at Time of Discharge Medication Sig Dispensed Refills Start Date End Date citalopram (CELEXA) 20 Take 20 mg by mouth 0 01/2020 MG tablet daily folic acid (FOLVITE) 1 Take 1 mg by mouth 0 12/20 MG tablet daily methotrexate 2.5 MG 15 mg every 7 days 0 01/09/20 20 tablet ASPIRIN LOW DOSE 81 MG Take 81 mg by mouth 0 08/10/201903/21/2021 EC tablet daily atorvastatin (LIPITOR) Take 40 mg by mouth 0 08/0 10/201903/21/2021 40 MG tablet daily citalopram (CELEXA) 10 citalopram 10 mg 0 05/03/2020 MG tablet tablet clopidogrel (PLAVIX) 75 Take 75 mg by mouth 0 09/201902/22/2022 MG tablet daily ENBREL SURECLICK 50 50 mg once a week 0 0 02/22/2022 MG/ML autoinjector fish oil-omega-3 fatty 1,200 mg 0 [...] on filedocumented in this encounter Care Teams Lending Consultant Relationship Specialty Start Date End Date Yamila Dave PA-C PCP - General Physician Chief Knowledge Officer 04/14/20 [facility] [address] [place] [address] documented as of this encounter
--- OUTSIDE RECORDS SUMMARY | 2022-06-15 08:57 | XMS_ITS | Encounter Summary ---
:1960 Author Organization [place] Address [facility] [address] Care Team Providers Name Role Phone Yamila Dave PA-C Primary Care Provider [phone] Encounter Details Date Type Department Care Team Description 04/20/2020 Travel Social History Tobacco Use Types Packs/Day Years Used Date Smoking Tobacco: Never Assessed Sex Assigned at Date Recorded Female 04/22/2020 2:54 PM CDT COVID-19 Exposure Response Date Recorded In the last month, have you been in contact with No / Unsure 04/20/2020 4:24 PM CDT someone who was confirmed or suspected to have Coronavirus / COVID-19? documented as of this encounter Plan of Treatment Not on filedocumented as of this encounter Visit Diagnoses Not on filedocumented in this encounter Care Teams Tube Handler Relationship Specialty Start Date End Date Yamila Dave PA-C PCP - General Physician Personnel Officer 04/14/20 [place] [id number], [place] [address] documented as of this encounter
--- OUTSIDE RECORDS SUMMARY | 2022-06-15 08:57 | XMS_ITS | Encounter Summary ---
:1960 Author Organization [place] Address [address] [facility] [place] [address] Care Team Providers Name Role Phone Yamila Dave PA-C Primary Care Provider [phone] Reason for Referral (Routine) - Closed Specialty Diagnoses / Procedures Referred By Contact Refer red To Contact Diagnoses Coronary artery disease involving anvik coronary artery of anvik heart without angina pectoris Rahul Ford MD [facility] [address] [place] [address] Referral ID Status Reason Start Date Expiration Date Visits Requ ested Visits Authorized [id number] Closed 05/03/2020 05/03/2021 1 1 Reason for Visit Reason Comments New Patient recent hosp admission for [place] . Encounter Details Date Type Department Care Team Description 05/03/2020 Office Visit Rahul Lim Coronary artery [facility] MD [place] disease involving [facility] [facility] anvik coronary [address] [facility] [address] artery of anvik [address] [place] [address] heart without angina [place], [place] [phone] (Wo rk) pectoris (Primary Dx) [address] [phone] Social History Tobacco Use Types Packs/Day Years Used Date Smoking Tobacco: Never Smokeless Tobacco: Never Alcohol Use Standard Drinks/Week Comments Yes 0 (1 standard drink = 0.6 oz pure alcoho l) rare occasion Sex Assigned at Date Recorded Female 04/22/2020 2:54 PM CDT COVID-19 Exposure Response Date Recorded In the last month, have you been in contact with No / Unsure 05/03/2020 9:15 AM CDT someone who was confirmed or suspected to have Coronavirus / COVID-19? documented as of this encounter Last Filed Vital Signs Vital Sign Reading Time Taken Comments Blood Pressure 124/83 05/03/2020 9:21 AM CDT Pulse 54 05/03/2020 9:21 AM CDT Temperature - - Respiratory Rate - - Oxygen Saturation 97% 05/03/2020 9:21 AM CDT Inhaled Oxygen Concentration - - Weight 79.8 kg (176 lb) 05/03/2020 9:21 AM CDT Height 162.6 cm (5' 4) 05/03/2020 9:21 AM CDT Body Mass Index 30.21 05/03/2020 9:21 AM CDT documented in this encounter Patient Instructions Patient InstructionsWillRahul neumann MD - 05/03/2020 9:15 AM CDT 1. Decrease metoprolol to 12.5mg twice daily. This may help with the fatigue. If you do not feel better after a few weeks, call the clinic and we will have you stop the metoprolol. 2. Your primary physician will check you cholesterol, the goal LDL is less than 70. documented in this encounter Progress Notes Rahul Ford MD - 05/03/2020 9:15 AM CDT CARDIOLOGY CONSULT REASON FOR CONSULT: CAD PRIMARY CARE PHYSICIAN: Yamila Dave HISTORY OF PRESENT ILLNESS: 59-year-old female seen for follow-up of coronary artery disease. She has hypertension, dyslipidemia, and psoriatic arthritis on methotrexate. In April 2020 she was admitted to [facility] in [place], [place] with non-STEMI. Echo showed EF 55% with no wall motion abnormality and no valve disease. Angiogram showed severe stenosis of a small OM 3 branch, mild disease elsewhere, this was treated medically. Overall she is doing well. Her main complaint is some tiredness and fatigue. Heart rate runs in the 50s, sometimes upper 40s, blood pressure will be 96/60 after exercise. She denies any chest pain or other symptoms on the machines at cardiac rehab. She has no lightheadedness, dizziness, or lower extremity edema. PAST MEDICAL HISTORY: Past Medical History: Diagnosis Date ??? Coronary artery disease 04/2020 ??? Hypertension ??? NSTEMI (non-ST elevated myocardial infarction) (H) 04/2020 No intervention on cardiac cath MEDICATIONS: Current Outpatient Medications Medication ??? citalopram (CELEXA) 10 MG tablet ??? folic acid (FOLVITE) 1 MG tablet ??? losartan-hydrochlorothiazide (HYZAAR) 50-12.5 MG tablet ??? methotrexate 2.5 MG tablet ??? omeprazole (PRILOSEC) [address] capsule No current facility-administered medications for this visit. ALLERGIES: Allergies Allergen Reactions ??? Sulfa Drugs Rash SOCIAL HISTORY: I have reviewed this patient's social history and updated it with pertinent information if needed. Kriss Nohemi FAMILY HISTORY: I have reviewed this patient's family history and updated it with pertinent information if needed. No family history on file. REVIEW OF SYSTEMS: Constitutional: No weight loss, fever, chills, weakness or fatigue. HEENT: Eyes: No visual loss, blurred vision, double vision or yellow sclerae. No hearing loss, sneezing, congestion, runny nose or sore throat. Skin: No rash or itching. Cardiovascular: per HPI Respiratory: per HPI GI: No anorexia, nausea, vomiting or diarrhea. No abdominal pain or blood. : No dysurea, hematuria Neurologic: No headache, dizziness, syncope, paralysis, ataxia, numbness or tingling in the extremities. No change in bowel or bladder control. Musculoskeletal: No muscle, back pain, joint pain or stiffness. Hematologic: No anemia, bleeding or bruising. Lymphatics: No enlarged nodes. No history of splenectomy. Psychiatric: No history of depression or anxiety. Endocrine: No reports of sweating, cold or heat intolerance. No polyuria or polydipsia. Allergies: No history of asthma, hives, eczema or rhinitis. PHYSICAL EXAM: BP 124/83 (BP Location: Right arm, Patient Position: Sitting, Cuff Size: Adult Regular) Pulse 54 Ht 1.626 m (5' 4) Wt 79.8 kg (176 lb) SpO2 97% BMI 30.21 kg/m?? Constitutional: awake, alert, no distress Eyes: PERRL, sclera nonicteric ENT: trachea midline Respiratory: Lungs clear Cardiovascular: Regular rate and rhythm, no murmurs GI: nondistended, nontender, bowel sounds present Lymph/Hematologic: no lymphadenopathy Skin: dry, no rash Musculoskeletal: good muscle tone, strength 5/5 in upper and lower extremities Neurologic: no focal deficits Neuropsychiatric: appropriate affact DATA: Labs: Recent Labs Lab Test 04/03/20 CHOL 232* HDL 62 LDL 145 TRIG 161* ASSESSMENT: 59-year-old female seen for coronary artery disease. She is being managed medically for her non-STEMI. She thinks her psoriatic arthritis has been acting up recently, this could have been the cause of her non-STEMI with the increased inflammation. She is doing well, but likely has fatigue and tiredness from the metoprolol and low heart rate and blood pressure. She will decrease metoprolol. Otherwise she has no symptoms. RECOMMENDATIONS: 1. Coronary disease with recent non-STEMI treated medically -Decrease metoprolol to 12.5 mg twice daily, if still symptomatic, try going off metoprolol -Preferably continue clopidogrel for 1 year, would prefer to give at least 6 months, could hold if needed since no stent was placed -Continue aspirin and statin -Complete cardiac rehab 2. Dyslipidemia -Primary physician to check lipids, goal LDL around 70 Follow-up in 3 months with CON. Rahul Ford MD Cardiology - [facility] Heart Pager: [phone] Text Page May 03, 2020 documented in this encounter Plan of Treatment Scheduled Referrals Name Type Priority Associated Diagnoses Order S chedule Follow-Up with Cardiac Referral Routine Coronary artery di sease Expected: 08/02/2020 Advanced Practice involving anvik (Appro ximate), Provider coronary artery of Expires: 05/03/2021 anvik heart without angina pectoris documented as of this encounter Visit Diagnoses Diagnosis Coronary artery disease involving anvik coronary artery of anvik heart without angina pectoris - Primary documented in this encounter Care Teams Asphalt Dauber Relationship Specialty Start Date End Date Yamila Dave PA-C PCP - General Physician Motorcoach Driver 04/14/20 [place] [id number] [place] [address] documented as of this encounter
--- OUTSIDE RECORDS SUMMARY | 2022-06-15 08:57 | XMS_ITS | Encounter Summary ---
:1960 Author Organization [place] Address [address] [place] [address]. [place] [address] Care Team Providers Name Role Phone Yamila Dave PA-C Primary Care Provider [phone] Encounter Details Date Type Department Care Team Description 05/31/2020 Travel Social History Tobacco Use Types Packs/Day Years Used Date Smoking Tobacco: Never Smokeless Tobacco: Never Alcohol Use Standard Drinks/Week Comments Yes 0 (1 standard drink = 0.6 oz pure alcoho l) rare occasion Sex Assigned at Date Recorded Female 04/22/2020 2:54 PM CDT COVID-19 Exposure Response Date Recorded In the last month, have you been in contact with No / Unsure 05/31/2020 10:06 AM CDT someone who was confirmed or suspected to have Coronavirus / COVID-19? documented as of this encounter Plan of Treatment Not on filedocumented as of this encounter Visit Diagnoses Not on filedocumented in this encounter Care Teams Actionscript Developer Relationship Specialty Start Date End Date Yamila Dave PA-C PCP - General Physician Air Brake Mechanic 04/14/20 [facility] [address] [place] [address] documented as of this encounter
--- OUTSIDE RECORDS SUMMARY | 2022-06-15 08:57 | XMS_ITS | Encounter Summary ---
:1960 Author Organization [place] Address [address] [place] [address] Care Team Providers Name Role Phone Yamila Dave PA-C Primary Care Provider [phone] Reason for Visit Rehab Therapy Cardiac Therapy (Routine) - Closed Specialty Diagnoses / Procedures Referred By Contact Refer red To Contact CARDIAC REHAB Procedures [facility] CARDIAC [facility] [address] [place], [place] [address] Phone: Fax: Referral ID Status Reason Start Date Expiration Date Visits Requ ested Visits Authorized [id number] Closed 04/14/2020 09/02/2020 365 365 Encounter Details Date Type Department Care Team Description 04/20/2020 Hospital Encounter [facility] Cardiac [place] Arlyn castaneda PA-C [facility] [address] [place] [address] and Pulmonary 2, Rh Cardiac Rehab Rehabilitation [facility] [address] [facility] [address] [place] [address] Social History Tobacco Use [...] on filedocumented in this encounter Care Teams Order Picker/Assembler Relationship Specialty Start Date End Date Yamila Dave PA-C PCP - General Physician Router Setter 04/14/20 [facility] [address] [place] [address] documented as of this encounter
--- OUTSIDE RECORDS SUMMARY | 2022-06-15 08:57 | XMS_ITS | Encounter Summary ---
:1960 Author Organization [place] Address [address] [facility] [place] [address] Care Team Providers Name Role Phone Yamila Dave PA-C Primary Care Provider [phone] Encounter Details Date Type Department Care Team Description 04/30/2020 Travel Social History Tobacco Use Types Packs/Day [...] on filedocumented in this encounter Care Teams Bag Machine Operator Relationship Specialty Start Date End Date Yamila Dave PA-C PCP - General Physician Senior Electrical Design Engineer 04/14/20 [place] [id number], [place] [address] documented as of this encounter
--- OUTSIDE RECORDS SUMMARY | 2022-06-15 08:57 | XMS_ITS | Encounter Summary ---
:1960 Author Organization [place] Address [facility] [place] [address] Care Team Providers Name Role Phone Yamila Dave PA-C Primary Care Provider [phone] Encounter Details Date Type Department Care Team Description 04/14/2020 Travel Social History Tobacco Use Types Packs/Day Years Used Date Smoking Tobacco: Never Assessed Sex Assigned at Date Recorded Female 04/22/2020 2:54 PM CDT COVID-19 Exposure Response Date Recorded In the last month, have you been in contact with No / Unsure 04/14/2020 2:51 PM CDT someone who was confirmed or suspected to have Coronavirus / COVID-19? documented as of this encounter Plan of Treatment Not on filedocumented as of this encounter Visit Diagnoses Not on filedocumented in this encounter Care Teams Real Estate Professional Relationship Specialty Start Date End Date Yamila Dave PA-C PCP - General Physician Auctioneer Art 04/14/20 [place] [id number], [place] [address] documented as of this encounter
--- OUTSIDE RECORDS SUMMARY | 2022-06-15 08:57 | XMS_ITS | Encounter Summary ---
:1960 Author Organization [place] Address [facility] [address] Care Team Providers Name Role Phone Yamila Dave PA-C Primary Care Provider [phone] Encounter Details Date Type Department Care Team Description 04/23/2020 Travel Social History Tobacco Use Types Packs/Day Years Used Date Smoking Tobacco: Never Assessed Sex Assigned at Date Recorded Female 04/22/2020 2:54 PM CDT COVID-19 Exposure Response Date Recorded In the last month, have you been in contact with No / Unsure 04/23/2020 2:42 PM CDT someone who was confirmed or suspected to have Coronavirus / COVID-19? documented as of this encounter Plan of Treatment Not on filedocumented as of this encounter Visit Diagnoses Not on filedocumented in this encounter Care Teams Paper Sales Representative Relationship Specialty Start Date End Date Yamila Dave PA-C PCP - General Physician Senior Brand Manager 04/14/20 [place] [id number], [place] [address] documented as of this encounter
--- OUTSIDE RECORDS SUMMARY | 2022-06-15 08:57 | XMS_ITS | Encounter Summary ---
:1960 Author Organization [place] Address [address] [place] [address]. [place] [address] Care Team Providers Name Role Phone Yamila Dave PA-C Primary Care Provider [phone] Encounter Details Date Type Department Care Team Description 05/26/2020 Travel Social History Tobacco Use Types Packs/Day Years Used Date Smoking Tobacco: Never Smokeless Tobacco: Never Alcohol Use Standard Drinks/Week Comments Yes 0 (1 standard drink = 0.6 oz pure alcoho l) rare occasion Sex Assigned at Date Recorded Female 04/22/2020 2:54 PM CDT COVID-19 Exposure Response Date Recorded In the last month, have you been in contact with No / Unsure 05/26/2020 2:59 PM CDT someone who was confirmed or suspected to have Coronavirus / COVID-19? documented as of this encounter Plan of Treatment Not on filedocumented as of this encounter Visit Diagnoses Not on filedocumented in this encounter Care Teams Civil Engineering Drafter Relationship Specialty Start Date End Date Yamila Dave PA-C PCP - General Physician Sorting Machine Attendant 04/14/20 [facility] [address] [place] [address] documented as of this encounter
--- OUTSIDE RECORDS SUMMARY | 2022-06-15 08:57 | XMS_ITS | Encounter Summary ---
:1960 Author Organization [place] Address [address] [facility] [place] [address] Care Team Providers Name Role Phone Yamila Dave PA-C Primary Care Provider [phone] Reason for Visit Rehab Therapy Cardiac Therapy (Routine) - Closed Specialty Diagnoses / Procedures Referred By Contact Refer red To Contact CARDIAC REHAB Procedures [facility] CARDIAC [facility] [address] [place], [place] [address] Phone: Fax: Referral ID Status Reason Start Date Expiration Date Visits Requ ested Visits Authorized [id number] Closed 04/14/2020 09/02/2020 365 365 Encounter Details Date Type Department Care Team Description 04/14/2020 Hospital Encounter [facility] Cardiac Admit, Dr Wily and Pulmonary Arlyn Schwab PA-C [facility] [address] [place], [place] [id number] Rehabilitation [facility] 2, [facility] [address] [facility] [address] [place] [address] Social History Tobacco Use [...] 20 Take 20 mg by mouth 0 0801/2020 MG tablet daily folic acid (FOLVITE) 1 [...] filedocumented in this encounter Care Teams Manager Of International Relationship Specialty Start Date End Date Yamila Dave PA-C PCP - General Physician First Aid Teacher 04/14/20 [facility] [address] [place] [address] documented as of this encounter
--- OUTSIDE RECORDS SUMMARY | 2022-06-15 08:57 | XMS_ITS | Encounter Summary ---
:1960 Author Organization [place] Address [address] [place] [address]. [place] [address] Care Team Providers Name Role Phone Yamila Dave PA-C Primary Care Provider [phone] Encounter Details Date Type Department Care Team Description 05/03/2020 Travel Social History Tobacco Use Types Packs/Day [...] on filedocumented in this encounter Care Teams Window Draper Relationship Specialty Start Date End Date Yamila Dave PA-C PCP - General Physician Instruments Sales Representative 04/14/20 [facility] [address] [place] [address] documented as of this encounter
--- OUTSIDE RECORDS SUMMARY | 2022-06-15 08:57 | XMS_ITS | Encounter Summary ---
:1960 Author Organization [place] Address [address] [place] [address]. [place] [address] Care Team Providers Name Role Phone Yamila Dave PA-C Primary Care Provider [phone] Encounter Details Date Type Department Care Team Description 05/07/2020 Travel Social History Tobacco Use Types Packs/Day Years Used Date Smoking Tobacco: Never Smokeless Tobacco: Never Alcohol Use Standard Drinks/Week Comments Yes 0 (1 standard drink = 0.6 oz pure alcoho l) rare occasion Sex Assigned at Date Recorded Female 04/22/2020 2:54 PM CDT COVID-19 Exposure Response Date Recorded In the last month, have you been in contact with No / Unsure 05/07/2020 10:03 AM CDT someone who was confirmed or suspected to have Coronavirus / COVID-19? documented as of this encounter Plan of Treatment Not on filedocumented as of this encounter Visit Diagnoses Not on filedocumented in this encounter Care Teams Funeral Director/Embalmer Relationship Specialty Start Date End Date Yamila Dave PA-C PCP - General Physician Metal Engraver 04/14/20 [facility] [address] [place] [address] documented as of this encounter
--- OUTSIDE RECORDS SUMMARY | 2022-06-15 08:57 | XMS_ITS | Encounter Summary ---
:1960 Author Organization [place] Address [address] [place] [address]. [place] [address] Care Team Providers Name Role Phone Yamila Dave PA-C Primary Care Provider [phone] Encounter Details Date Type Department Care Team Description 06/02/2020 Travel Social History Tobacco Use Types Packs/Day [...] on filedocumented in this encounter Care Teams Christian Ministries Professor Relationship Specialty Start Date End Date Yamila Dave PA-C PCP - General Physician Shrink Pit Supervisor 04/14/20 [facility] [address] [place] [address] documented as of this encounter
--- OUTSIDE RECORDS SUMMARY | 2022-06-15 08:57 | XMS_ITS | Encounter Summary ---
:1960 Author Organization [place] Address [facility] [place] [address] Care Team Providers Name Role Phone Yamila Dave PA-C Primary Care Provider [phone] Encounter Details Date Type Department Care Team Description 04/27/2020 Travel Social History Tobacco Use Types Packs/Day [...] on filedocumented in this encounter Care Teams Oversize Load Pilot Escort Relationship Specialty Start Date End Date Yamila Dave PA-C PCP - General Physician Senior Db2 Systems Programmer 04/14/20 [facility] [id number] [address] documented as of this encounter
--- OUTSIDE RECORDS SUMMARY | 2022-06-15 08:57 | XMS_ITS | Encounter Summary ---
:1960 Author Organization [place] Address [address] [facility] [place] [address] Care Team Providers Name Role Phone Yamila Dave PA-C Primary Care Provider [phone] Reason for Visit Rehab Therapy Cardiac Therapy (Routine) - Closed Specialty Diagnoses / Procedures Referred By Contact Refer red To Contact CARDIAC REHAB Procedures [facility] CARDIAC [facility] [address] [place], [place] [address] Phone: Fax: Referral ID Status Reason Start Date Expiration Date Visits Requ ested Visits Authorized [id number] Closed 04/14/2020 09/02/2020 365 365 Encounter Details Date Type Department Care Team Description 05/28/2020 Hospital Encounter [facility] Cardiac Mary Lou Arlyn castaneda PA-C [facility] [address] [place] [address] and Pulmonary 1, Rh Cardiac Rehab Rehabilitation [facility] [address] [facility] [address] [place] [address] Social History Tobacco Use [...] been in contact with No / Unsure 05/28/2020 9:55 AM CDT someone who was confirmed or [...] on filedocumented in this encounter Care Teams Bleach Machine Operator Relationship Specialty Start Date End Date Yamila Dave PA-C PCP - General Physician Rail Signal Worker 04/14/20 [facility] [address] [place] [address] documented as of this encounter
--- OUTSIDE RECORDS SUMMARY | 2022-06-15 08:57 | XMS_ITS | Encounter Summary ---
:1960 Author Organization [place] Address [address] [facility] [place] [address] Care Team Providers Name Role Phone No Ref-Primary, Physician Primary Care Provider [phone] Encounter Details Date Type Department Care Team Description 02/25/2020 Travel Social History Tobacco Use Types Packs/Day Years Used Date Smoking Tobacco: Never Assessed Sex Assigned at Date Recorded Female 04/22/2020 2:54 PM CDT COVID-19 Exposure Response Date Recorded In the last month, have you been in contact with No / Unsure 02/25/2020 10:32 AM CDT someone who was confirmed or suspected to have Coronavirus / COVID-19? documented as of this encounter Plan of Treatment Not on filedocumented as of this encounter Visit Diagnoses Not on filedocumented in this encounter Care Teams Fashion Journalist Relationship Specialty Start Date End Date No Ref-Primary, Physician PCP - General 09/04/19 04/13/20 documented as of this encounter
--- OUTSIDE RECORDS SUMMARY | 2022-06-15 08:57 | XMS_ITS | Encounter Summary ---
:1960 Author Organization [place] Address [address] [facility] [place] [place] [address] Care Team Providers Name Role Phone Yamila Dave PA-C Primary Care Provider [phone] Reason for Visit Rehab Therapy Cardiac Therapy (Routine) - Closed Specialty Diagnoses / Procedures Referred By Contact Refer red To Contact CARDIAC REHAB Procedures [facility] CARDIAC [facility] [address] [place], [place] [address] Phone: Fax: Referral ID Status Reason Start Date Expiration Date Visits Requ ested Visits Authorized [id number] Closed 04/14/2020 09/02/2020 365 365 Encounter Details Date Type Department Care Team Description 05/07/2020 Hospital Encounter [facility] Cardiac Mary Lou Arlyn castaneda PA-C [facility] [address] [place] [address] and Pulmonary 1, Rh Cardiac Rehab Rehabilitation [facility] [address] [facility] [address] [place] [address] Social History Tobacco Use [...] on filedocumented in this encounter Care Teams Regulatory Scientist Relationship Specialty Start Date End Date Yamila Dave PA-C PCP - General Physician Director Employment 04/14/20 [facility] [address] [place] [address] documented as of this encounter
--- OUTSIDE RECORDS SUMMARY | 2022-06-15 08:57 | XMS_ITS | Encounter Summary ---
:1960 Author Organization [place] Address [address] [facility] [place] [address] Care Team Providers Name Role Phone No Ref-Primary, Physician Primary Care Provider [phone] Encounter Details Date Type Department Care Team Description 02/23/2020 Travel Social History Tobacco Use Types Packs/Day Years Used Date Smoking Tobacco: Never Assessed Sex Assigned at Date Recorded Female 04/22/2020 2:54 PM CDT COVID-19 Exposure Response Date Recorded In the last month, have you been in contact with No / Unsure 02/23/2020 1:20 PM CDT someone who was confirmed or suspected to have Coronavirus / COVID-19? documented as of this encounter Plan of Treatment Not on filedocumented as of this encounter Visit Diagnoses Not on filedocumented in this encounter Care Teams Order Picker/Assembler Relationship Specialty Start Date End Date No Ref-Primary, Physician PCP - General 09/04/19 04/13/20 documented as of this encounter
--- OUTSIDE RECORDS SUMMARY | 2022-06-15 08:57 | XMS_ITS | Encounter Summary ---
:1960 Author Organization [place] Address [address] [facility] [place] [address] Care Team Providers Name Role Phone Yamila Dave PA-C Primary Care Provider [phone] Reason for Visit Rehab Therapy Cardiac Therapy (Routine) - Closed Specialty Diagnoses / Procedures Referred By Contact Refer red To Contact CARDIAC REHAB Procedures [facility] [address] [place], [place] [address] Phone: Fax: Referral ID Status Reason Start Date Expiration Date Visits Requ ested Visits Authorized [id number] Closed 04/14/2020 09/02/2020 365 365 Encounter Details Date Type Department Care Team Description 04/23/2020 Hospital Encounter [facility] Cardiac Mary Lou Arlyn castaneda PA-C [facility] [address] [place] [address] and Pulmonary 1, Rh Cardiac Rehab Rehabilitation [facility] [address] [facility] [address] [place] [address] Social History Tobacco Use [...] on filedocumented in this encounter Care Teams Corrective Therapist Relationship Specialty Start Date End Date Yamila Dave PA-C PCP - General Physician Field Trainer 04/14/20 [facility] [address] [place] [address] documented as of this encounter
--- OUTSIDE RECORDS SUMMARY | 2022-06-15 08:57 | XMS_ITS | Encounter Summary ---
:1960 Author Organization [place] Address [address] [place] [address]. [place] [address] Care Team Providers Name Role Phone Yamila Dave PA-C Primary Care Provider [phone] Encounter Details Date Type Department Care Team Description 05/28/2020 Travel Social History Tobacco Use Types Packs/Day [...] on filedocumented in this encounter Care Teams Language Path Relationship Specialty Start Date End Date Yamila Dave PA-C PCP - General Physician Hobbies And Crafts Sales Representative 04/14/20 [facility] [address] [place] [address] documented as of this encounter
--- OUTSIDE RECORDS SUMMARY | 2022-06-15 08:57 | XMS_ITS | Encounter Summary ---
:1960 Author Organization [place] Address [address] [place] [address]. [place] [address] Care Team Providers Name Role Phone Yamila Dave PA-C Primary Care Provider [phone] Encounter Details Date Type Department Care Team Description 05/18/2020 Travel Social History Tobacco Use Types Packs/Day [...] on filedocumented in this encounter Care Teams Various Exceptionalities Teacher Relationship Specialty Start Date End Date Yamila Dave PA-C PCP - General Physician Television Repairer 04/14/20 [facility] [address] [place] [address] documented as of this encounter
--- OUTSIDE RECORDS SUMMARY | 2022-06-15 08:57 | XMS_ITS | Encounter Summary ---
:1960 Author Organization [place] Address [address] [place] [address]. [place] [address] Care Team Providers Name Role Phone Yamila Dave PA-C Primary Care Provider [phone] Encounter Details Date Type Department Care Team Description 05/14/2020 Travel Social History Tobacco Use Types Packs/Day [...] on filedocumented in this encounter Care Teams Repair Miller Relationship Specialty Start Date End Date Yamila Dave PA-C PCP - General Physician Retail Bakery Manager 04/14/20 [facility] [address] [place] [address] documented as of this encounter
--- OUTSIDE RECORDS SUMMARY | 2022-06-15 08:58 | XMS_ITS | Encounter Summary ---
:1960 Author Organization [place] Address [address] [facility] [place] [address] Care Team Providers Name Role Phone No Ref-Primary, Physician Primary Care Provider [phone] Reason for Visit Reason Comments Cough Encounter Details Date Type Department Care Team Description 11/17/2019 Office Visit [facility] Traci Ortiz Ra, [facility] (Primary Dx) Urgent Care [address] [id number] [phone] Social History Tobacco Use Types Packs/Day Years Used Date Smoking Tobacco: Never Assessed Sex Assigned at Date Recorded Female 04/22/2020 2:54 PM CDT COVID-19 Exposure Response Date Recorded In the last month, have you been in contact Unable to assess 11/17/2019 2:14 PM CDT with someone who was confirmed or suspected to have Coronavirus / COVID-19? documented as of this encounter Patient Instructions Patient InstructionsOdette Smalls - 11/17/2019 2:15 PM CDT You are being tested for Marvin virus and possibly Influenza and/or RSV. Please use the information at the end of this document to sign up for [facility] Paddle (Mobile Payments) where you can get your results and a message about those results sent to you through the [employer] (Mobile Payments) application. If you do not have [employer] we will call you with your results but it may take longer. Isolate Yourself: ?? Isolate yourself while traveling. ?? Do Not allow any visitors within 6 feet. ?? Do Not go to work or school. ?? Do Not go to moravian, child nutrition assistant centers, shopping, or other public places. ?? Do Not shake hands. ?? Avoid close contact with others (hugging, kissing). Protect Others: ?? Cover Your Mouth and Nose with a mask, disposable tissue or wash cloth to avoid spreading germs to others. ?? Wash your hands and face frequently with soap and water Call Back If: Breathing difficulty develops or you become worse. For more information about COVID19 and options for caring for yourself at home, please visit the CDCwebsite at https://www.cdc.gov/coronavirus/2019-ncov/about/vmlol-zcxc-gbqb.html For more options for care at [facility], please visit our website at [email or web address] documented in this encounter Progress Notes Traci Ortiz Ra, FIELD UNDERWRITER CLOUD SUBJECT MATTER EXPERT - 11/17/2019 2:15 PM CDT SUBJECTIVE: This 59 year old female presents for COVID-19 testing. she reports malaise, a headache, and a cough.Onset of symptoms was 3-6 days ago. Exposure history: was on a cruise from [place] [facility] [place]. OBJECTIVE: Visual assessment shows: GENERAL APPEARANCE is healthy without evident apparent respiratory distress BREATHING: the patient is breathing comfortably and is speaking full sentences ASSESSMENT/PLAN: ICD-10-CM 1. Cough R05 Novel COVID-19 (Coronavirus) SARS-CoV-2 by PCR Nasopharyngeal swab You are being tested for Marvin Virus 19, Influenza and possibly RSV. Please use the information at the end of this document to sign up for [facility] Pet Chance Televisiont where you can get your results and a message about those results sent to you through the Paddle (Mobile Payments) application. If you do not have [employer] we will call you with your results but it may take longer. Isolate Yourself: ?? Isolate yourself while traveling. ?? Do Not allow any visitors within 6 feet. ?? Do Not go to work or school. ?? Do Not go to moravian, child nutrition assistant centers, shopping, or other public places. ?? Do Not shake hands. ?? Avoid close contact with others (hugging, kissing). Protect Others: ?? Cover Your Mouth and Nose with a mask, disposable tissue or wash cloth to avoid spreading germs to others. ?? Wash your hands and face frequently with soap and water Call Back If: Breathing difficulty develops or you become worse. For more information about COVID19 and options for caring for yourself at home, please visit the CDCwebsite at https://www.cdc.gov/coronavirus/2019-ncov/about/jtgif-qmiz-hqbu.html For more options for care at [facility], please visit our website at [email or web address] Traci Ortiz APRN CLOUD SUBJECT MATTER EXPERT on 11/17/2019 at 2:49 PM documented in this encounter Plan of Treatment Not on filedocumented as of this encounter Procedures Procedure Name Priority Date/Time Associated Comments Diagnosis NOVEL COVID-19 Routine 11/17/2019 2:40 PM Cough Results for this (CORONAVIRUS) CDT procedure are in SARS-COV-2 BY PCR TO the [facility]OR[facility]IES section. documented in this encounter Results Novel COVID-19 (Coronavirus) SARS-CoV-2 by PCR Nasopharyngeal (11/17/2019 2:40 PM CDT) [facility] Method Time Signature COVID-19 Nasopharyngeal 11/17/2019 [place] Virus 2:49 PM CDT CLINICS (SARS-COV-2) [place] [facility] COVID-19 Not Detected 11/23/2019 [place] Virus 2:57 PM CDT [facility] (SARS-CoV-2) [place] by PCR [facility] Comment: (Note) NOT DETECTED - A negative result does no t rule out the presence of PCR inhibitors in the patien t specimen or assay specific nucleic acid in concentrations below the level of detection by the assay. INTERPRETIVE INFORMATION: 2019 Novel Cor onavirus SARS-CoV-2 ? by PCR This test should be ordered for the dete ction of the 2019 novel coronavirus SARS-CoV-2 in individu als who meet SARS-CoV-2 clinical and/or epidemiologic al criteria. The 2019 Novel Coronavirus SARS-CoV-2 by PCR test is for in vitro diagnostic use under the FDA Emerg ency Use Authorization (EUA) for US laboratories certified under CLIA to perform high complexity tests. T his test has not been FDA cleared or approved. In complia nce with this authorization, please visit [email or web address] for more information and to access the [facility] information sheets. Performed by [facility] [employer], [address] [place] [id number] [email or web address], Adryan Guzman MD, Lab. Director Specimen (Source) Anatomical Collection Method Collection Time Re ceived Time Location / / Volume Laterality Specimen from 11/17/2019 2:40 11/17/2019 nasopharyngeal PM CDT 2:51 PM CDT structure (specimen) Traci Ortiz APRN CLOUD SUBJECT MATTER EXPERT LAB - MICRO GENERAL ORDERA BLES Performing Organization Address City/State/ZIP Code Phon e Number [facility] [address] [place] [address] documented in this encounter Visit Diagnoses Diagnosis Cough - Primary documented in this encounter Care Teams Clinical Genetics Laboratory Chief Relationship Specialty Start Date End Date No Ref-Primary, Physician PCP - General 09/04/19 04/13/20 documented as of this encounter
--- OUTSIDE RECORDS SUMMARY | 2022-06-15 08:58 | XMS_ITS | Encounter Summary ---
:1960 Author Organization [place] Address [address] [facility] [place] [address] Care Team Providers Name Role Phone No Ref-Primary, Physician Primary Care Provider [phone] Encounter Details Date Type Department Care Team Description 11/17/2019 Travel Social History Tobacco Use Types Packs/Day [...] on filedocumented in this encounter Care Teams Packaging Tech Relationship Specialty Start Date End Date No Ref-Primary, Physician PCP - General 09/04/19 04/13/20 documented as of this encounter
--- OUTSIDE RECORDS SUMMARY | 2022-06-15 08:58 | XMS_ITS | Encounter Summary ---
:1960 Author Organization [place] Address [address] [place] [address]. [place] [address] Care Team Providers Name Role Phone No Ref-Primary, Physician Primary Care Provider [phone] Encounter Details Date Type Department Care Team Description 09/04/2019 Travel Social History Tobacco Use Types Packs/Day Years Used Date Smoking Tobacco: Never Assessed Sex Assigned at Date Recorded Female 04/22/2020 2:54 PM CDT documented as of this encounter Plan of Treatment Not on filedocumented as of this encounter Visit Diagnoses Not on filedocumented in this encounter Care Teams Wash House Supervisor Relationship Specialty Start Date End Date No Ref-Primary, Physician PCP - General 09/04/19 04/13/20 documented as of this encounter
--- OUTSIDE RECORDS SUMMARY | 2022-06-15 08:59 | XMS_ITS | Clinical Summary ---
:1960 Author Organization [facility] [place] [address] Care Team Providers Name Role Phone Yamila Dave PA-C Primary Care Provider Allergies Active Allergy Reactions Severity Noted Date Comments Paroxetine Rash Low 09/26/2006 Sertraline Rash Low 02/19/2012 Sulfa (Sulfonamide Antibiotics) Hives 1 Bupropion Hives 11/18/2020 Medications Medication Sig Dispensed Refills Start Date End Date Status famotidine (PEPCID) Take 20 mg by mouth 0 Active 20 mg tablet 2 times daily. citalopram (CELEXA) Take 20 mg by mouth 0 Active 20 mg tablet once daily. methotrexate Take 2.5 mg by mouth 0 Active (RHEUMATREX) 2.5 mg once weekly. Takes tablet every Sunday evening medication order 1 Capsule. Turmeric 0 Active composer Curcumin folic Take by mouth. 0 Activ e acid/multivit-min/shantel tein (CENTRUM SILVER ORAL) aspirin (ECOTRIN) 81 Take 81 mg by mouth 0 Active mg enteric coated once daily. tablet atorvastatin Take 40 mg by mouth 0 Active (LIPITOR) 40 mg once daily. tablet clopidogreL (Plavix) Take 75 mg by mouth 0 Active 75 mg tablet once daily. folic acid 1 mg Take 1 mg by mouth 0 Active tablet once daily. losartan (COZAAR) 25 Take 25 mg by mouth 0 Active mg tablet once daily. metoprolol succinate Take 12.5 mg by 0 Active SR (TOPROL XL) 12.5 mouth 2 times daily. mg as half tablet oxyCODONE-acetaminop Take 1-2 Tablets by 6 Tablet 0 1 Active hen (PERCOCET) 5-325 mouth every 6 hours mg per if needed for Pain. tabletIndications: Max acetaminophen Post-operative state dose: 4000mg in 24 hrs. Active Problems Not on file Social History Tobacco Use Types Packs/Day Years Used Date Never Smoker Smokeless Tobacco: Never Used Alcohol Use Standard Drinks/Week Comments Yes 0 (1 standard drink = 0.6 oz pure alcoho l) occasional-1 drink per month Alcohol Habits Answer Date Recorded How often do you have a drink containing Not asked alcohol? How many drinks containing alcohol do you Not asked have on a typical day when you are drinking? How often do you have six or more drinks Not asked on one occasion? Comment: occasional-1 drink per month 11/18/2020 Sex Assigned at Date Recorded Not on file Obstetrics History Last Filed Vital Signs Vital Sign Reading Time Taken Comments Blood Pressure 133/68 11/19/2020 9:00 AM CDT Pulse 58 11/19/2020 9:15 AM CDT Temperature 36.3 ??C (97.3 ??F) 11/19/2020 8:28 AM CDT Respiratory Rate 18 11/19/2020 9:15 AM CDT Oxygen Saturation 91% 11/19/2020 9:15 AM CDT Inhaled Oxygen Concentration - - Weight 83.5 kg (184 lb) 11/19/2020 6:24 AM CDT Height 160 cm (5' 3) 11/19/2020 6:24 AM CDT Body Mass Index 32.59 11/19/2020 6:24 AM CDT Plan of Treatment Health Maintenance Due Date Last Done Comments Tdap 1972 Depression screening for age 12+ 1973 BMI (ht and wt on same day) for age 18+ 1979 Hepatitis C screening for age 18-79 1979 Tetanus booster 1981 Colonoscopy through age 75 2006 Lipids for age 45-75 2006 Mammogram for age 45-75 2006 Zoster (shingles) series for age 50+ (1 of 2011 2) COVID-19 vaccine series (3 - Booster for 02/24/2021 021, 12/09/2020 Pfizer series) Pap test for age 21-65 04/23/2022 04/23/2019 Influenza for age 50-64 05/04/2022 Results Not on filefrom Last 3 Months Insurance Payer Benefit Plan / Subscriber ID Effective Dates Phone Addre ss Type Group BLUE [employer] [place] [employer]VANTAGE [id number] 2018-Present [address] [address] [place] [address] Advance Directives Latest Code Status on File Code Status Date Activated Date Inactivated Comments Full Code 11/19/2020 5:56 AM 11/19/2020 1:25 PM Code Status Discussion: Not Discussed Care Teams Reject Opener Relationship Specialty Start Date End Date Yamila Dave PA-C PCP - General Emergency Medicine 11/05/[address] [place] [address]
--- OUTSIDE RECORDS SUMMARY | 2022-06-15 08:59 | XMS_ITS ---
:1960 Author Care Team Providers Name Role Phone DIEGO RIVAS Primary Care Provider [phone] Allergies Code Code System Name Reaction Severity Status Onset Sulfa (Sulfonamide ? ? Active ? Antibiotics) 65116 RxNorm Zoloft Rash ? Active ? Medications Name Status Start Date Stop Date ? ? acetaminophen 300 mg-codeine 30 mg tablet Active ? Not available Acidophilus Active ? Not available amoxicillin 875 mg tablet Completed ? 2016 amoxicillin 875 mg-potassium clavulanate 125 mg tablet Completed ? 09/04/2017 azithromycin 250 mg tablet Completed ? 01/08 benzonatate 100 mg capsule Completed ? 01/08 benzonatate 200 mg capsule Completed ? 03/19 citalopram 10 mg tablet Active ? Not avai lable citalopram 20 mg tablet Completed ? 01/09/20 17 citalopram 40 mg tablet Completed ? 09/04/19 18 Contrave 8 mg-90 mg tablet,extended release Completed ? 07/24/2017 fluticasone propionate 50 mcg/actuation nasal Completed ? 01/08/2017 spray,suspension Fluvirin 3626-0794 45 mcg (15 mcg x 3)/0.5 mL intramuscular susp ension Active ? Not available ADM 0.5ML IM UTD hydrocodone 5 mg-acetaminophen 325 mg tablet Completed ? 01/08/2017 iron Active ? Not available losartan 100 mg-hydrochlorothiazide 12.5 mg tablet Completed ? 07/24/2017 losartan 50 mg-hydrochlorothiazide 12.5 mg tablet Active ? Not available naproxen 500 mg tablet Unknown ? Not avail able omeprazole 20 mg capsule,delayed release Active ? Not available ondansetron 4 mg disintegrating tablet Unknown ? Not available phentermine 37.5 mg tablet Active ? Not a vailable prednisone 10 mg tablet Active ? Not avai lable prednisone 20 mg tablet Completed ? 01/09/20 17 sulfamethoxazole 800 mg-trimethoprim 160 mg tablet Unknown ? Not available tobramycin 0.3 % eye drops Unknown ? Not a vailable tramadol 50 mg tablet Unknown ? Not availa ble Virtussin AC 10 mg-100 mg/5 mL oral liquid Completed ? 09/04/2017 Vitamin D3 25 mcg (1,000 unit) capsule Active ? Not available Take by oral route. Notes: Fish oil,Calcium Problems Name Status Onset Date Source ? Vitamin D Deficiency Active 01/08/2017 ? Obesity Active 01/08/2017 ? Iron Deficiency Anemia Active 01/08/2017 ? Obstructive Sleep Apnea Syndrome Active 01/08/2017 ? Essential Hypertension Active 01/08/2017 ? Gastroesophageal Reflux Disease Active 01/08/2017 ? Procedures Date Name Performed by ? 01/08/2017 Electrocardiogram Information not avai lable Notes: CS,L foot,L breast Lumpectomy Results Lab Results Date Name Specimen Result Interpretation Description Value Range Status Address ? 01/08/2017 Lipid Blood High Cholesterol, 220 mg/dL 125-200 Fi nal [facility], venous Total mg/dL Diagnostic s Serum [facility]: [address], [place] ? ? Blood Normal HDL 64 mg/dL > or = Final [facility] venous Cholesterol 46 mg/dL [facility]: [address], [place] ? ? Blood Normal Triglycerides 120 mg/dL <150 Final [facility] mg/dL Diagnostic s [facility]: [address], [place] ? ? Blood High LDL-cholester 132 mg/dL <130 Final [facility] venous ol (calc) mg/dL Diagnostic s (calc) [facility]: [address], [place] ? ? Blood Normal Chol/hdlc 3.4 (calc) < or = Final Qu est venous Ratio 5.0 Diagnostic s (calc) [facility]: [address], [place] ? ? Blood Normal Non HDL 156 mg/dL ? Final [facility] venous Cholesterol (calc) Diagn ostics [facility]: [address], [place] 01/08/2017 Magnesiu Blood Normal Magnesium 2.1 mg/dL 1.5-2.5 Fin al [facility] m, Serum venous mg/dL Diagnost ics or [facility]: [address], [place] 01/08/2017 Uric Blood Normal Uric Acid 5.6 mg/dL 2.5-7.0 Final [facility] Acid, venous mg/dL Diagnostic s Serum or [facility]: [address], [place] 01/08/2017 CMP, Blood Normal Glucose 83 mg/dL 65-99 Final Qu est Serum or venous mg/dL Diagnost ics Plasma [facility]: [address], [place] ? ? Blood Normal Urea Nitrogen 15 mg/dL 7-25 Final [facility] venous (BUN) mg/dL Diagnostic s [facility]: [address], [place] ? ? Blood Normal Creatinine 0.70 mg/dL 0.50-1.0 Final [facility] venous 5 mg/dL Diagnosti cs [facility]: [address], [place] ? ? Blood Normal eGFR Non-afr. 98 > or = Final Qu est venous [place] mL/min/1.73 60 [facility] m2 mL/min/1 [facility]: [address], [place] ? ? Blood Normal eGFR 113 > or = Final Que st venous [place] mL/min/1.73 60 [facility] m2 mL/min/1 [facility]: [address], [place] ? ? Blood ? BUN/creatinin not 6-22 Final Qu est venous e Ratio applicable (calc) Diagn ostics (calc) [facility]: [address], [place] ? ? Blood Normal Sodium 141 mmol/L 135-146 Final Ques t venous mmol/L Diagnostic s [facility]: [address], [place] ? ? Blood Normal Potassium 4.2 mmol/L 3.5-5.3 Final Q uest venous mmol/L Diagnostic s [facility]: [address], [place] ? ? Blood Normal Chloride 101 mmol/L 98-[address] venous mmol/L Diagnostic s [facility]: [address], [place] ? ? Blood Normal Carbon 29 mmol/L 20-31 Final [facility] Dioxide mmol/L Diagnosti cs [facility]: [address], [place] ? ? Blood Normal Calcium 9.9 mg/dL 8.6-10.[address] venous mg/dL Diagnostic s [facility]: [address], [place] ? ? Blood Normal Protein, 7.1 g/dL 6.1-8.1 Final Ques t venous Total g/dL Diagnostic s [facility]: [address], [place] ? ? Blood Normal Albumin 4.6 g/dL 3.6-5.1 Final [facility] g/dL Diagnostic s [facility]: [address], [place] ? ? Blood Normal Globulin 2.5 g/dL 1.9-3.7 Final Ques t venous (calc) g/dL Diagnostic s (calc) [facility]: [address], [place] ? ? Blood Normal Albumin/globu 1.8 (calc) 1.0-2.5 Danyelle l [facility] venous alea Ratio (calc) Diagnos tics [facility]: [address], [place] ? ? Blood Normal Bilirubin, 0.5 mg/dL 0.2-1.2 Final Q uest venous Total mg/dL Diagnostic s [facility]: [address], [place] ? ? Blood Normal Alkaline 90 U/L 33-130 Final [facility] venous Phosphatase U/L Diagn ostics [facility]: [address], [place] ? ? Blood Normal Ast 19 U/L 10-35 Final [facility] venous U/L Diagnostic s [facility]: [address], [place] ? ? Blood Normal Alt 25 U/L 6-29 U/L Final [facility] venous Diagnostic s [facility]: [address], [place] 01/08/2017 CBC W/ Blood Normal White Blood 6.2 3.8-10.8 Final [facility] Auto venous Cell Count thousand/uL thousand Diagnostics Diff /uL [facility]: [address], [place] ? ? Blood High Red Blood 5.46 3.80-5.1 Final Ques t venous Cell Count million/uL 0 Di agnostics million/ [facility]: [address], [place] ? ? Blood Normal Hemoglobin 14.1 g/dL 11.7-15. Final [facility] 5 g/dL Diagnostic s [facility]: [address], [place] ? ? Blood Normal Hematocrit 42.6 % 35.0-45. Final Que st venous 0 % Diagnostic s [facility]: [address], [place] ? ? Blood Low Mcv 77.9 fL 80.0-100 Final [facility] .0 fL Diagnostic s [facility]: [address], [place] ? ? Blood Low Mch 25.7 pg 27.0-33. Final [facility] venous 0 pg Diagnostic s [facility]: [address], [place] ? ? Blood Normal Mchc 33.0 g/dL 32.0-36. Final [facility] venous 0 g/dL Diagnostic s [facility]: [address], [place] ? ? Blood Normal Rdw 14.3 % 11.0-15. Final [facility] venous 0 % Diagnostic s [facility]: [address], [place] ? ? Blood Normal Platelet 210 140-400 Final [facility] venous Count thousand/uL thousand [facility] /uL [facility]: [address], [place] ? ? Blood Normal Mpv 8.2 fL 7.5-12.5 Final [facility] venous fL Diagnostic s [facility]: [address], [place] ? ? Blood Normal Absolute 4290 1500-780 Final [facility] Neutrophils cells/uL 0 [facility] cells/uL [facility]: [address], [place] ? ? Blood Normal Absolute 4039 154-1592 Final [facility] venous Lymphocytes cells/uL cells/uL D iagnostics [facility]: [address], [place] ? ? Blood Normal Absolute 465 200-950 Final [facility] Monocytes cells/uL cells/uL [facility]: [address], [place] ? ? Blood Normal Absolute 136 15-500 Final [facility] venous Eosinophils cells/uL cells/uL D iagnostics [facility]: [address], [place] ? ? Blood Normal Absolute 25 cells/uL 0-200 Final Qu est venous Basophils cells/uL Diagn ostics [facility]: [address], [place] ? ? Blood Normal Neutrophils 69.2 % ? Final Ques t venous Diagnostic s [facility]: [address], [place] ? ? Blood Normal Lymphocytes 20.7 % ? Final Ques t venous Diagnostic s [facility]: [address], [place] ? ? Blood Normal Monocytes 7.5 % ? Final [facility] venous Diagnostic s [facility]: [address], [place] ? ? Blood Normal Eosinophils 2.2 % ? Final Ques t venous Diagnostic s [facility]: [address], [place] ? ? Blood Normal Basophils 0.4 % ? Final [facility] venous Diagnostic s [facility]: [address], [place] 01/08/2017 TSH, Blood Normal Tsh 2.41 mIU/L ? Final Qu est Serum or venous Diagnost ics Plasma [facility]: [address], [place] 01/08/2017 Vitamin Blood Normal Vitamin 42 NG/mL 30-100 Final Q uest D, venous D,25-Oh,total, NG/mL Di agnostics 25-[place] [facility]: [address], [address], Serum [place] 01/08/2017 HbA1C Blood Normal Hemoglobin 5.2 % of <5.7 % [facility] (Hemoglo venous a1C total HGB of total [facility] bin HGB [facility]: [address], [place] ? BMP, Blood Normal Glucose 97 mg/dL 65-99 Final [facility] Serum or venous mg/dL Diagnost ics Plasma [facility]: [address], [place] ? ? Blood High Urea Nitrogen 31 mg/dL 7-25 Final [facility] venous (BUN) mg/dL Diagnostic s [facility]: [address], [place] ? ? Blood Normal Creatinine 0.79 mg/dL 0.50-1.0 Final [facility] venous 5 mg/dL Diagnosti cs [facility]: [address], [place] ? ? Blood Normal eGFR Non-afr. 84 > or = Final Qu est venous [place] mL/min/1.73 60 [facility] m2 mL/min/1 [facility]: [address], [place] ? ? Blood Normal eGFR 98 > or = Final Que st venous [place] mL/min/1.73 60 [facility] m2 mL/min/1 [facility]: [address], [place] ? ? Blood High BUN/creatinin 39 (calc) 6-22 Final [facility] venous e Ratio (calc) Diagnosti cs [facility]: [address], [place] ? ? Blood Normal Sodium 139 mmol/L 135-146 Final Ques t venous mmol/L Diagnostic s [facility]: [address], [place] ? ? Blood Normal Potassium 3.9 mmol/L 3.5-5.3 Final Q uest venous mmol/L Diagnostic s [facility]: [address], [place] ? ? Blood Normal Chloride 100 mmol/L 98-[address] venous mmol/L Diagnostic s [facility]: [address], [place] ? ? Blood Normal Carbon 29 mmol/L 20-31 Final [facility] venous Dioxide mmol/L Diagnosti cs [facility]: [address], [place] ? ? Blood Normal Calcium 10.1 mg/dL 8.6-10.4 Final Qu est venous mg/dL Diagnostic s [facility]: [address], [place] Past Encounters None recorded. Social History Tobacco Smoking Status Never Smoker Vaccine List None recorded. Plan of Care Reminders Provider Appointments None recorded. ? ? Lab None recorded. ? ? Referral None recorded. ? ? Procedures None recorded. ? ? Surgeries None recorded. ? ? Imaging None recorded. ? ? Vitals 01/09/2018 10:30AM FOLLOW UP- 15 MIN Height Weight BMI Blood Pressure 63 in 165 lbs 12.8 oz 29.4 kg/m2 116/70 mm[Hg] 09/04/2017 12:00PM FOLLOW UP- 15 MIN Height Weight BMI Blood Pressure 63 in 177 lbs 8 oz 31.4 kg/m2 121/78 mm[Hg] 07/24/2017 12:00PM FOLLOW UP- 15 MIN Height Weight BMI Blood Pressure 63 in 179 lbs 3.2 oz 31.7 kg/m2 122/72 mm[Hg] 06/12/2017 12:00PM FOLLOW UP- 15 MIN Height Weight BMI Blood Pressure 63 in 180 lbs 12.8 oz 32 kg/m2 126/72 mm[Hg] 05/28/2017 Weight 181 lbs 14.4 oz 05/14/2017 06:15PM FOLLOW UP- 15 MIN Height Weight BMI Blood Pressure 63 in 186 lbs 9.6 oz 33.1 kg/m2 120/88 mm[Hg] 04/16/2017 06:30PM FOLLOW UP- 15 MIN Height Weight BMI Blood Pressure 63 in 180 lbs 1.6 oz 31.9 kg/m2 110/80 mm[Hg] 03/26/2017 Weight 180 lbs 12.8 oz 03/19/2017 06:30PM FOLLOW UP- 15 MIN Height Weight BMI Blood Pressure 63 in 181 lbs 12.8 oz 32.2 kg/m2 110/78 mm[Hg] 02/26/2017 Weight 180 lbs 12.8 oz 02/19/2017 Weight 185 lbs 12.8 oz 02/05/2017 06:15PM FOLLOW UP- 15 MIN Height Weight BMI Blood Pressure 63 in 186 lbs 16 oz 33.1 kg/m2 120/78 mm[Hg] 01/22/2017 06:45PM FOLLOW UP- 15 MIN Height Weight BMI Blood Pressure 63 in 189 lbs 12.8 oz 33.6 kg/m2 120/80 mm[Hg] 01/15/2017 Weight 195 lbs 9.6 oz 01/08/2017 01:30PM NEW PATIENT - 1 HOUR Height Weight BMI Blood Pressure 63 in 194 lbs 11.2 oz 34.5 kg/m2 132/86 mm[Hg] 04/17/2016 02:50PM [facility] WALK-IN 5 MIN Height Weight BMI Blood Pressure 63 in 185 lbs 32.8 kg/m2 100/72 mm[Hg]
[2022-06-15 13:50] LABS: Cholesterol* 148 mg/dL (90-199); Glucose* 103 mg/dL (60-115); HDL Cholesterol* 59 mg/dL (>=50); LDL Cholesterol Calculated 64 mg/dL (<100); Triglycerides* 124 mg/dL (40-149)
== END 2022-06-15 08:46 | disposition home or self-care (01) ==
PROVIDERS: PCP Physician Assistant Medical; Visit Provider Physician Assistant Medical
DX: Z01.419 Encounter for gynecological examination (general) (routine) without abnormal findings (principal); R53.83 Other fatigue; I10 Essential (primary) hypertension; E03.9 Hypothyroidism, unspecified; E78.00 Pure hypercholesterolemia, unspecified; F41.9 Anxiety disorder, unspecified
CPT/HCPCS: 80061; 82947; 84443; 87624; 88175

== ENCOUNTER 2022-09-12 12:42 | Outpatient (CLI) | payer BC, SELFPAY ==
--- NOTE | 2022-09-12 13:00 | CRLHL7_ITS ---
For Patients: As a result of the Century Cures Act, medical imaging exams and procedure reports are released immediately into your electronic medical record. You may view this report before your referring provider. If you have questions, please contact your health care provider. BILATERAL SCREENING MAMMOGRAM WITH COMPUTER-AIDED DETECTION AND TOMOSYNTHESIS TECHNIQUE: CC and MLO views were obtained. These mammographic images have been obtained using full-field digital technique. These mammographic images were interpreted with the benefit of computer-aided detection. Breast Tomosynthesis was used in this interpretation. COMPARISON FILM: 08/24/20, 05/28/19. FINDINGS: There are scattered areas of fibroglandular density IMPRESSION: There is no radiographic evidence for malignancy. ASSESSMENT: BI-RADS Category 1: Negative RECOMMENDATION: Routine screening mammogram in 1 year. A lay language report of this examination will be provided to the patient. Scotty Felder M.D. Diagnostic Radiologist [email or web address] Transcribed: 4:05 [email or web address] villarreal/Dictated by: Scotty Felder MD @ 09/13/2022 9:00:00 AM (Electronically Signed)
== END 2022-09-12 12:43 | disposition home or self-care (01) ==
LOC: MAMMO 12:43
PROVIDERS: PCP Physician Assistant Medical; Visit Provider Physician Assistant Medical
DX: Z12.31 Encounter for screening mammogram for malignant neoplasm of breast (principal)
CPT/HCPCS: 77063; 77067

== ENCOUNTER 2023-07-06 08:35 | Outpatient (CLI) | payer BC, SELFPAY | END 2023-07-06 08:36 | disposition home or self-care (01) | LOC: NFLDREF 07-09 07:57 | PROVIDERS: PCP Physician Assistant Medical; Referring Provider Physician Assistant Medical; Visit Provider Physician Assistant Medical | DX: Z00.00 Encounter for general adult medical examination without abnormal findings (principal); R79.89 Other specified abnormal findings of blood chemistry; R53.83 Other fatigue; E03.9 Hypothyroidism, unspecified; I10 Essential (primary) hypertension; E78.00 Pure hypercholesterolemia, unspecified; Z13.6 Encounter for screening for cardiovascular disorders; Z11.59 Encounter for screening for other viral diseases | CPT/HCPCS: 80053; 80061; 84443; 86703; 86803 ==

== ENCOUNTER 2023-07-09 10:59 | Outpatient (CLI) | payer BC, SELFPAY ==
[2023-07-09 23:35] LABS: Chlamydia DNA Amplified* NOT DETECTED (No Detected); GC DNA Amplified* NOT DETECTED (No Detected)
== END 2023-07-09 11:00 | disposition home or self-care (01) ==
LOC: LKVREF 11:00
PROVIDERS: PCP Physician Assistant Medical; Visit Provider Physician Assistant Medical
DX: N76.0 Acute vaginitis (principal)
CPT/HCPCS: 87491; 87591

== ENCOUNTER 2023-10-05 13:24 | Outpatient (CLI) | payer MEDICAID, SELFPAY ==
--- OUTSIDE RECORDS SUMMARY | 2023-10-05 13:28 | XMS_ITS | Clinical Summary ---
Author Name Unknown Organization [place] Address [address] [place] [address]. [place] [address] Care Team Providers Care Guest Relations Associate Name Role Phone Yamila Dave PA-C Primary Care Provider Chadwick Jensen POWER PLANT SUPERINTENDENT Unavailable [phone] Chadwick Jensen POWER PLANT SUPERINTENDENT Unavailable [phone] Allergies Active Allergy Reactions Criticality Noted Date Comments Bupropion Hives 11/18/2020 Paroxetine Rash Low 09/26/2006 Sertraline Rash Low 02/19/2012 Sulfa Antibiotics Rash Low 01/25/2020 Medications Medication Sig Dispensed Refills Start Date End Date Status folic acid (FOLVITE) 1 MG tablet Take 1 mg by mouth daily 0 12/21/2019 Active methotrexate 2.5 MG tablet 15 mg every 7 days 0 01/09/2020 Active citalopram (CELEXA) 20 MG tablet Take 20 mg by mouth daily 0 04/07/2020 Active Vitamin D3 (CHOLECALCIFEROL) 25 mcg (1000 units) tablet Take 2,000 Units by mouth 0 Active Multiple Vitamin (MULTI-VITAMINS) TABS Take by mouth daily 0 Active Doxylamine Succinate, Sleep, (SLEEP AID PO) Take by mouth as needed 0 Active ketorolac (TORADOL) 10 MG tablet Take 1 tablet (10 mg) by mouth every 6 hours as needed for pain Take as sparingly as possible. Avoid taking any other NSAIDS while using this medication. 10 tablet 0 09/17/2020 Active Additional Information Patient not taking.Reported on 02/22/2022 golimumab (SIMPONI) 50 MG/0.5ML auto-injector pen Simponi 50 mg/0.5 mL subcutaneous pen injector 0 Active omeprazole (PRILOSEC) [address] capsule omeprazole 20 mg capsule,delayed release 0 Active atorvastatin (LIPITOR) 40 MG tabletIndications:C oronary artery disease involving [place] coronary artery of [place] heart without angina pectoris,Palpitatio ns Take 1 tablet (40 mg) by mouth daily 90 tablet 3 04/06/2022 Active ASPIRIN LOW DOSE 81 MG EC tabletIndications:C oronary artery disease involving [place] coronary artery of [place] heart without angina pectoris Take 1 tablet (81 mg) by mouth daily 90 tablet 3 04/07/2022 Active cyclobenzaprine (FLEXERIL) 10 MG tabletIndications:B ack muscle spasm Take 1 tablet (10 mg) by mouth 3 times daily as needed for muscle spasms 30 tablet 0 02/13/2023 Active losartan (COZAAR) 100 MG tabletIndications:B enign essential hypertension Take 1 tablet (100 mg) by mouth daily 90 tablet 0 02/23/2023 Active metoprolol tartrate (LOPRESSOR) 25 MG tabletIndications:C oronary artery disease involving [place] coronary artery of [place] heart without angina pectoris,Palpitatio ns Take 1 tablet (25 mg) by mouth 2 times daily 180 tablet 0 02/23/2023 Active aspirin-acetaminoph en-caffeine (EXCEDRIN MIGRAINE) 250-250-65 MG tablet Take 1 tablet by mouth daily as needed for headaches 0 Active ibuprofen (ADVIL/MOTRIN) 200 MG tablet Take 200 mg by mouth every 4 hours as needed for pain 0 Active Active Problems Problem Noted Date Diagnosed Date Coronary artery disease 04/03/2020 Essential hypertension 01/08/2017 Gastroesophageal reflux disease 01/08/2017 Iron deficiency anemia 01/08/2017 Obesity 01/08/2017 Obstructive sleep apnea syndrome 01/08/2017 Vitamin D deficiency 01/08/2017 Immunizations Name Administration Dates Next Due COVID-19 MONOVALENT 12+ ([email or web address]) 12/30/2020,04/2021 Family History Medical History Relation Comments Aortic aneurysm Father Heart Failure Father Prostate Cancer Father Cataracts Mother Chronic Obstructive Pulmonary Disease Mother Emphysema Mother Relation Status Comments Father Mother Social History Tobacco Use Types Packs/Day Years Used Date Smoking Tobacco: Never Smokeless Tobacco: Never Tobacco Cessation:Counseling Given: Not Answered Alcohol Use Standard Drinks/Week Comments Yes 0 (1 standard drink = 0.6 oz pur e alcohol) rare occasion PHQ-2 Answer Date Recorded PHQ-2 Score 0 02/23/2023 Adolescent Education Answer Date Record ed Getting School Help Needed Not on file 05/26 Sex and Gender Information Value Date Recorded Sex Assigned at Female 04/22/2020 2:54 PM CDT Gender Identity Female 04/22/2020 2:54 PM CDT Sexual Orientation Straight 04/22/2020 2: 54 PM CDT Last Filed Vital Signs Vital Sign Reading Time Taken Comments Blood Pressure 132/72 03/17/2023 1:00 PM CDT Pulse 64 03/17/2023 1:00 PM CDT Temperature 36.3 ??C (97.3 ??F) 03/17/2023 1:00 PM CD T Respiratory Rate 14 03/14/2023 11:28 AM CDT Oxygen Saturation 97% 03/17/2023 1:00 PM CDT Inhaled Oxygen Concentration - - Weight 81.6 kg (180 lb) 03/17/2023 1:00 PM CDT Height 160 cm (5' 3) 03/14/2023 11:28 AM CDT Body Mass Index 31.89 03/14/2023 11:28 AM CDT Plan of Treatment Health Maintenance Due Date Last Done Comments ADVANCE CARE PLANNING 1960 ANNUAL REVIEW OF HM ORDERS 1960 CT COLONOGRAPHY 1960 FIT 1960 FLEX SIG 1960 YEARLY PREVENTIVE VISIT 1960 sDNA (Cologuard) 1960 Pneumococcal Vaccine: Pediatrics (0 to 5 Years) and At-Risk Patients (6 to 64 Years) (1 of 2 - PCV) 1967 HIV SCREENING 1976 HEPATITIS C SCREENING 1979 RSV VACCINE ( & 60+) (1 - 1-dose 60+ series) 2021 COLONOSCOPY 02/01/2022 02/02/2012 COLORECTAL CANCER SCREENING 02/01/2022 MAMMO SCREENING 08/24/2022 08/24/2020, 08/24/2020 COVID-19 Vaccine ( season) 2023 08/01/2021, 12/30/2020, 12/09/2020 INFLUENZA VACCINE (#1) 2023 2, 06/13/2022, 06/17/2021, Additional history exists PHQ-2 (once per calendar year) 2023 02/23/2023 PAP 06/15/2025 06/15/2022, 06/15/2022 LIPID 02/24/2028 02/23/2023, 02/02, 08/11/2020, Additional history exists DTAP/TDAP/TD IMMUNIZATION (3 - Td or Tdap) 04/23/2029 04/23/2019, 05/06/2009 ZOSTER IMMUNIZATION Completed 07/25/2020, 0 HPV IMMUNIZATION Aged Out No longer e ligible based on patient's age to complete this topic IPV IMMUNIZATION Aged Out No longer e ligible based on patient's age to complete this topic MENINGITIS IMMUNIZATION Aged Out No l onger eligible based on patient's age to complete this topic RSV MONOCLONAL ANTIBODY Aged Out No l onger eligible based on patient's age to complete this topic Care Teams Guest Relations Associate Relationship Specialty Start Date End Date Yamila Dave PA-C [facility] [address] [place] [address] PCP - General Physician Safety Pin Assembling Machine Operator 04/14/20 Chadwick Jensen NP [id number] [id number] Nurse Practitioner Cardiovascular Disease 11/15/22 Chdawick Jensen NP [address] [id number] Assigned Heart and Vascular Provider 08/25/23
--- OUTSIDE RECORDS SUMMARY | 2023-10-05 13:28 | XMS_ITS | Encounter Summary ---
Author Name Unknown Organization [place] Address [address] [facility] [place] [address] Care Team Prov[address] Care [address] Scientist Name Role Phone Yamila Dave PA-C Primary Care Provider Rahul Ford MD Unavailable Un available Chadwick Jensen NP Unavailable [phone] Encounter Details Date Type Department Care Team (Latest Contact Info) Description 02/23/2023 Travel Social History Tobacco Use Types Packs/Day Years Used Date Smoking Tobacco: Never Smokeless Tobacco: Never Alcohol Use Standard Drinks/Week Comments Yes 0 (1 standard drink = 0.6 oz pur e alcohol) rare occasion PHQ-2 Answer Date Recorded PHQ-2 Score 0 02/23/2023 Sex and Gender Information Value Date Recorded Sex Assigned at Female 04/22/2020 2:54 PM CDT Gender Identity Female 04/22/2020 2:54 PM CDT Sexual Orientation Straight 04/22/2020 2: 54 PM CDT COVID-19 Exposure Response Date Recorded In the last 10 days, have yo u been in contact with someone who was confirmed or suspected to have Coronavirus/COVID-19? No / Unsure 02/23/2023 8:53 AM CDT documented as of this encounter Plan of Treatment Not on file documented as of this encounter Visit Diagnoses Not on filedocumented in this encounter Care Teams Rd Scientist Relationship Specialty Start Date End Date Yamila Dave PA-C [facility] [address] [place], [place] [id number] PCP - General Physician Music Writer 04/14/20 Rahul Ford MD [facility] [address], [place] [address] Assigned Heart and Vascular Provider 01/23/21 03/02/23 Chadwick eJnsen NP [address] [id number] Nurse Practitioner Cardiovascular Disease 11/15/22 documented as of this encounter
--- OUTSIDE RECORDS SUMMARY | 2023-10-05 13:28 | XMS_ITS | Encounter Summary ---
Author Name Unknown Organization [place] Address [address] [place] [address] Care Team Providers Care Psychiatry Physician Name Role Phone Yamila Dave PA-C Primary Care Provider Chadwick Jensen CHEMICAL ANALYST Unavailable [phone] Chadwick Jensen CHEMICAL ANALYST Unavailable [phone] Encounter Details Date Type Department Care Team (Latest Contact Info) Description 03/14/2023 Travel Social History Tobacco Use Types Packs/Day [...] suspected to have Coronavirus/COVID-19? No / Unsure 03/14/2023 11:16 AM CDT documented as of this encounter Plan of Treatment Not on file documented as of this encounter Visit Diagnoses Not on filedocumented in this encounter Care Teams Psychiatry Physician Relationship Specialty Start Date End Date Yamila Dave PA-C [facility] [address] [address] PCP - General Physician Maintenance And Utilities Supervisor 04/14/20 Chadwick Jensen NP [address] [id number] Nurse Practitioner Cardiovascular Disease 11/15/22 Chadwick Jensen NP [address] [id number] Assigned Heart and Vascular Provider 03/03/23 08/17/23 documented as of this encounter
--- OUTSIDE RECORDS SUMMARY | 2023-10-05 13:28 | XMS_ITS | Encounter Summary ---
Author Name Unknown Organization [facility] Address [address] [place] [address] Care Team Providers Care Weaving Loom Operator Name Role Phone Yamila Dave PA-C Primary Care Provider Rahul Ford MD Unavailable Un available Chadwick Jensen NP Unavailable Reason for Referral * Consultation (Routine) - Pending Review Specialty Diagnoses / Procedures Referred By Contac t Referred To Contact Cardiovascular Disease Diagnoses Coronary artery disease involving ambler coronary artery of ambler heart without angina pectoris Benign essential hypertension Palpitations Chadwick Jensen, [address]OS[address] [place] [address] Referral ID Status Reason Start Date Expiration Date V isits Requested Visits Authorized Pending Review 02/23/2023 02/23/2024 1 1 Question Answer Preferred Location: [facility] Follow-up with: Other Legal Support Specialist - Logan Reason for follow-up: General Cardiology - Annual follow-up for CAD--labs beforehand for FLP and BMP Scheduling Instructions: [facility] will call you to coordinate your care as prescribed by your provider. If you have concerns about scheduling, please call [phone]. Comments [facility] will call you to coordinate your care as prescribed by your provider. If you have concerns about scheduling, please call [phone]. Reason for Visit * Reason Comments Follow Up Coronary Artery Disease Annual follow up Heart Problem Encounter Details Date Type Department Care Team (Late st Contact Info) Description 02/23/2023 10:00 AM CDT Office Visit [facility] [address] [place] [address] Chadwick Jensen NP [address] [id number] Coronary artery disease involving ambler coronary artery of ambler heart without angina pectoris; Benign essential hypertension; Palpitations Social History Tobacco Use Types Packs/Day Years [...] AM CDT documented as of this encounter Last Filed Vital Signs Vital Sign Reading Time Taken Comments Blood Pressure 119/78 02/23/2023 9:46 AM CDT Pulse 71 02/23/2023 9:46 AM CDT Temperature - - Respiratory Rate - - Oxygen Saturation 95% 02/23/2023 9:46 AM CDT Inhaled Oxygen Concentration - - Weight 83.4 kg (183 lb 14.4 oz) 02/23/2023 9:46 AM CDT Height 162.6 cm (5' 4) 02/23/2023 9:46 AM CDT Body Mass Index 31.57 02/23/2023 9:46 AM CDT documented in this encounter Patient Instructions * Patient Instructions* Chadwick Jensen NP - 02/23/2023 10:00 AM CDT Images from the original note were not included. Thank you for your visit with the [facility] today. Today's plan: Start taking metoprolol tartrate at 25 mg twice daily rather than 50 mg once daily. Continue the rest of your current medications without changes. Continue to try to stay physically active and stick to a heart healthy Mediterranean style diet. Follow-up with Dr. Ford for a routine annual visit around this time next year with fasting labsbeforehand to keep an eye on your cholesterol levels. Call the clinic in the meantime if you end up scheduling your hip surgery and we can arrange for a preoperative visit. If you have questions or concerns please call the nurse team at [phone] or send a Tweetminster message. Scheduling phone number: [phone] It was a pleasure seeing you today! Klever Jensen APRN, SUPERVISOR TELEVISION CHASSIS REPAIR Nurse Practitioner [facility] documented in this encounter Progress Notes * Chadwick Jensen NP - 02/23/2023 10:00 AM CDT Images from the original note were not included. Cardiology Clinic Progress Note Service Date: February 23, 2023 Primary Legal Support Specialist: Dr. Ford Reason for Visit: Annual follow up for CAD HPI: I had the pleasure of seeing Ms. Kriss Song in the clinic today. She is a very pleasant 62 year old female with a past medical history notable for coronary artery disease, hypertension, dyslipidemia, psoriatic arthritis on methotrexate, CADENCE (did not tolerate CPAP), and obesity with a BMI of 31. In April 2020, she was admitted to [facility] in [facility] with a non-STEMI. Echocardiogram showed EF 55% with no wall motion abnormality and no valve disease. Coronary angiogram showed severe stenosis of a small OM 3 branch which was treated medically. Mild, non-obstructive disease was noted elsewhere. Nuclear stress in September 2020 showed small infarct of the distal anterior and apical segment, EF 70%. ?? 30-day event monitor October 2020 showed sinus rhythm and significant arrhythmias. She last met with Dr. Ford in February 2022. She was doing well from a cardiac standpoint at that time. Blood pressure was elevated, so she was instructed to increase losartan to 50 mg daily. Today, Kriss presents to the clinic for a routine annual follow up visit. Labs were completed priorto the visit today which I personally reviewed with the patient. Basic metabolic panel shows stableelectrolytes and renal function with a potassium level 4.1, sodium level at 139, BUN at 17.4, creatinine at 0.77. A lipid profile was also checked, but results are currently pending at the time of the visit. Kriss tells me that she has been feeling well over the past year. She stays active by doingPilates around 5 days/week. 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 She has been tolerating her typical activity level well without any exertional symptoms or limitations. She denies any symptoms of chest pain, shortness of breath, palpitations, dizziness, or lightheadedness. She has some chronic pain in her hips bilaterally from psoriatic arthritis and is considering going ahead with hip replacement surgery sometime within the next year. She has been checking her blood pressure periodically at home and notes that her readings have beenstable primarily around the 110s-120s systolic and 70s-80s diastolic. Earlier this year, her primary care doctor had increased the dose of her losartan from 50 mg to 100 mg once daily for better blood pressure control. She states that the dose of metoprolol was also increased to 50 mg at some point within the past year, although she confirms that she is taking metoprolol tartrate and she has onlybeen doing the 50 mg dosing once daily. ASSESSMENT AND PLAN: 1. Coronary artery disease - Coronary angiogram in April 2020 showing severe stenosis of a small OM 3 branch for which medical management was recommended. No other significant lesions were noted. - Stable without anginal symptoms. - Continue current regimen of aspirin, Plavix, statin, and beta-azeb. Recommend she switch her dosing of metoprolol to tartrate from 50 mg once daily to 25 mg twice daily. 2. Essential hypertension - Well-controlled on losartan 100 mg once daily and metoprolol as outlined above. Continue current regimen, aside from the slight adjustment with metoprolol dosing as noted above. 3. Hyperlipidemia - Treated on atorvastatin 40 mg daily. Fasting lipid profile completed prior to the visit today with results currently pending. We can plan to update her on these results via [place]weet[place] message as she states that she checks mitral regularly. 4. Obstructive sleep apnea Thank you for the opportunity to participate in this pleasant patient's care. I will plan to have her see Dr. Ford for a routine annual follow-up visit around this time next year with a basic metabolic panel and fasting lipid profile beforehand. I encouraged the patient call the clinic with anyquestions or concerns in the meantime. We reviewed that if she does end up scheduling hip replacement surgery in the meantime that she should call the clinic to arrange a preoperative visit. 30 total minutes was spent today including chart review, precharting, history and exam, post visit documentation, patient education, and reviewing studies as outlined above. Klever Jensen APRN, SUPERVISOR TELEVISION CHASSIS REPAIR Nurse Practitioner [facility] Pager: [phone] Text Page (8am - 5pm, M-F) Orders this Visit: No orders of the defined types were placed in this encounter. Orders Placed This Encounter Medications ??? losartan (COZAAR) 100 MG tablet Sig: Take 1 tablet (100 mg) by mouth daily Dispense: 90 tablet Refill: 0 ??? metoprolol tartrate (LOPRESSOR) 25 MG tablet Sig: Take 1 tablet (25 mg) by mouth 2 times daily Dispense: 180 tablet Refill: 0 Medications Discontinued During This Encounter Medication Reason ??? losartan (COZAAR) 50 MG tablet Reorder (No AVS / No eCancel) ??? metoprolol tartrate (LOPRESSOR) 25 MG tablet Encounter Diagnoses Name Primary? Coronary artery disease involving ambler coronary artery of ambler heart without angina pectoris ??? Benign essential hypertension ??? Palpitations CURRENT MEDICATIONS: Current Outpatient Medications Medication Sig Dispense Refill ??? ASPIRIN LOW DOSE 81 MG EC tablet Take 1 tablet (81 mg) by mouth daily 90 tablet 3 ??? atorvastatin (LIPITOR) 40 MG tablet Take 1 tablet (40 mg) by mouth daily 90 tablet 3 ??? citalopram (CELEXA) 20 MG tablet Take 20 mg by mouth daily ??? cyclobenzaprine (FLEXERIL) 10 MG tablet Take 1 tablet (10 mg) by mouth 3 times daily as needed for muscle spasms 30 tablet 0 ??? folic acid (FOLVITE) 1 MG tablet Take 1 mg by mouth daily ??? golimumab (SIMPONI) 50 MG/0.5ML auto-injector pen Simponi 50 mg/0.5 mL subcutaneous pen injector ??? losartan (COZAAR) 100 MG tablet Take 1 tablet (100 mg) by mouth daily 90 tablet 0 ??? methotrexate 2.5 MG tablet 15 mg every 7 days ??? metoprolol tartrate (LOPRESSOR) 25 MG tablet Take 1 tablet (25 mg) by mouth 2 times daily 180 tablet 0 ??? Multiple Vitamin (MULTI-VITAMINS) TABS Take by mouth daily ??? omeprazole (PRILOSEC) [address] capsule omeprazole 20 mg capsule,delayed release ??? Doxylamine Succinate, Sleep, (SLEEP AID PO) Take by mouth as needed (Patient not taking: Reported on 02/13/2023) ??? ketorolac (TORADOL) 10 MG tablet Take 1 tablet (10 mg) by mouth every 6 hours as needed for pain Take as sparingly as possible. Avoid taking any other NSAIDS while using this medication. (Patientnot taking: Reported on 02/22/2022) 10 tablet 0 ??? Vitamin D3 (CHOLECALCIFEROL) 25 mcg (1000 units) tablet Take 2,000 Units by mouth (Patient not taking: Reported on 02/13/2023) ALLERGIES Allergies Allergen Reactions ??? Bupropion Hives ??? Paroxetine Rash ??? Sertraline Rash ??? Sulfa Antibiotics Rash PAST MEDICAL, SURGICAL, FAMILY HISTORY: History was reviewed and updated as needed, see medical record. SOCIAL HISTORY: Social History Socioeconomic History ??? Marital status: Spouse name: Not on file ??? Number of children: Not on file ??? Years of education: Not on file ??? Highest education level: Not on file Occupational History ??? Not on file Tobacco Use ??? Smoking status: Never ??? Smokeless tobacco: Never Substance and Sexual Activity ??? Alcohol use: Yes Comment: rare occasion ??? Drug use: Never ??? Sexual activity: Not Currently Other Topics Concern ??? Parent/sibling w/ CABG, NM or angioplasty before 65F 55M? Not Asked Social History Narrative ??? Not on file Social Determinants of Health Financial Resource Strain: Not on file Food Insecurity: Not on file Transportation Needs: Not on file Physical Activity: Not on file Stress: Not on file Social Connections: Not on file Intimate Partner Violence: Not on file Housing Stability: Not on file Review of Systems: Skin: not assessed Eyes: not assessed ENT: not assessed Respiratory: Positive for sleep apnea Cardiovascular: Negative Gastroenterology: not assessed Genitourinary: not assessed Musculoskeletal: not assessed Neurologic: not assessed Psychiatric: not assessed Heme/Lymph/Imm: not assessed Endocrine: not assessed Physical Exam: Vitals: BP 119/78 (BP Location: Right arm, Patient Position: Sitting, Cuff Size: Adult Regular) Pulse 71 Ht 1.626 m (5' 4) Wt 83.4 kg (183 lb 14.4 oz) LMP (LMP Unknown) SpO2 95% BMI 31.57 kg/m?? Wt Readings from Last 4 Encounters: 02/23/23 83.4 kg (183 lb 14.4 oz) 02/13/23 84.4 kg (186 lb) 03/12/22 82.6 kg (182 lb) 02/22/22 85 kg (187 lb 8 oz) CONSTITUTIONAL: Appears her stated age, well nourished, [...] RESULTS: Lab Results Component Value Date CHOL 163 02/22/2022 CHOL 150 08/11/2020 HDL 76 02/22/2022 HDL 62 04/03/2020 LDL 65 02/22/2022 LDL 145 04/03/2020 TRIG 110 02/22/2022 TRIG 131 08/11/2020 Basic Metabolic Panel RESULTS: Lab Results Component Value Date NA 139 02/23/2023 POTASSIUM 4.1 02/23/2023 CHLORIDE 103 02/23/2023 CO2 27 02/23/2023 ANIONGAP 9 02/23/2023 GLC 94 02/23/2023 BUN 17.4 02/23/2023 CR 0.77 02/23/2023 GFRESTIMATED 87 02/23/2023 SARAH 9.5 02/23/2023 CC Rahul Ford MD [address] [address] This note was completed in part using Chug voice recognition software. Although reviewed after completion, some word and grammatical errors may occur. documented in this encounter Plan of Treatment Scheduled Orders Name Type Priority Associated Diagnoses Orde r Schedule Basic metabolic panel Lab Routine Coronary artery disease involving ambler coronary artery of ambler heart without angina pectoris Benign essential hypertension Palpitations Expected: 02/24/2024 (Approximate), Expires: 02/24/2024 Lipid panel reflex to direct LDL Fasting Lab Routine Coronary artery disease involving ambler coronary artery of ambler heart without angina pectoris Benign essential hypertension Palpitations Expected: 02/24/2024 (Approximate), Expires: 02/24/2024 Scheduled Referrals Name Type Priority Associated Diagnoses Orde r Schedule Follow-Up with Cardiology Referral Routine: Next available opening Coronary artery disease involving ambler coronary artery of ambler heart without angina pectoris Benign essential hypertension Palpitations Expected: 02/24/2024 (Approximate), Expires: 02/24/2024 documented as of this encounter Visit Diagnoses Diagnosis Coronary artery disease involving ambler coronary artery of ambler heart without angina pectoris Benign essential hypertension Essential hypertension, benign Palpitations documented in this encounter Care Teams Weaving Loom Operator Relationship Specialty Start Date End Date Yamila Dave PA-C [facility] [address] [place] [address] PCP - General Physician Tufting Machine Operator Single Needle 04/14/20 Rahul Ford MD [facility] [address] [place] [address] Assigned Heart and Vascular Provider 01/23/21 03/02/23 Chadwick Jensen NP [address] [address] Nurse Practitioner Cardiovascular Disease 11/15/22 documented as of this encounter
--- OUTSIDE RECORDS SUMMARY | 2023-10-05 13:28 | XMS_ITS | Encounter Summary ---
Author Name Unknown Organization [facility] Address [address] [place] [address] Care Team Providers Care Director School Of Nursing Name Role Phone Yamila Dave PA-C Primary Care Provider Chadwick Jensen DIRECTOR OF PERSONNEL Unavailable [phone] Chadwick Jensen DIRECTOR OF PERSONNEL Unavailable [phone] Encounter Details Date Type Department Care Team (Latest Contact Info) Description 03/17/2023 Travel Social History Tobacco Use Types Packs/Day [...] suspected to have Coronavirus/COVID-19? No / Unsure 03/17/2023 12:42 PM CDT documented as of this encounter Plan of Treatment Not on file documented as of this encounter Visit Diagnoses Not on filedocumented in this encounter Care Teams Director School Of Nursing Relationship Specialty Start Date End Date Yamila Dave PA-C [facility] [address], [place] [address] PCP - General Physician Meter Installer 04/14/20 Chadwick Jensen NP [address] [address] Nurse Practitioner Cardiovascular Disease 11/15/22 Chadwick Jensen NP [address] [address] Assigned Heart and Vascular Provider 03/03/23 08/17/23 documented as of this encounter
--- OUTSIDE RECORDS SUMMARY | 2023-10-05 13:28 | XMS_ITS | Encounter Summary ---
Author Name Unknown Organization [facility] Address [address] [facility] [place] [address] Care Team Providers Care Grass Farm Laborer Name Role Phone Yamila Dave PA-C Primary Care Provider Chadwick Jensen STONEWORKER Unavailable [phone] Chadwick Jensen STONEWORKER Unavailable Reason for Visit * Reason Comments Cough URI symptoms and fat igue tested POS COVID this morning Encounter Details Date Type Department Care Team (Late st Contact Info) Description 03/17/2023 12:45 PM CDT Office Visit [facility] [address] [place] [id number] Tyelr Young MD [address] [address] Infection due to 2019 novel coronavirus (Primary Dx) Social History Tobacco Use Types Packs/Day Years [...] PM CDT documented as of this encounter Last Filed Vital Signs Vital Sign Reading Time Taken Comments Blood Pressure 132/72 03/17/2023 1:00 PM CDT Pulse 64 03/17/2023 1:00 PM CDT Temperature 36.3 ??C (97.3 ??F) 03/17/2023 1:00 PM CD T Respiratory Rate - - Oxygen Saturation 97% 03/17/2023 1:00 PM CDT Inhaled Oxygen Concentration - - Weight 81.6 kg (180 lb) 03/17/2023 1:00 PM CDT Height - - Body Mass Index 31.89 03/14/2023 11:28 AM CDT documented in this encounter Patient Instructions * Patient Instructions* Tyler Young MD - 03/17/2023 12:45 PM CDT When feeling better than can go in community with mask for 5 days than no mask required. If low oxygen and struggle breathing than to hospital. documented in this encounter Progress Notes * Tyler Young MD - 03/17/2023 12:45 PM CDT Assessment & Plan Infection due to 2019 novel coronavirus Out of window for the paxlovid. Sick for 1 week. Exam is normal. No follow-ups on file. Tyler Young MD [facility] Alaina Monterroso is a 62 year old female who presents to clinic today for the following health issues: Chief Complaint Patient presents with ??? Cough URI symptoms and fatigue tested POS COVID this morning HPI Here with COVID positive today. Was sick over Sat/Sun. Was seen and ST negative. Congested and heavy in chest. No fever. Some SOB Review of Systems Objective BP 132/72 (BP Location: Right arm, Patient Position: Chair, Cuff Size: Adult Regular) Pulse 64 Temp 97.3 ??F (36.3 ??C) (Tympanic) Wt 81.6 kg (180 lb) LMP (LMP Unknown) SpO2 97% BMI 31.89kg/m?? Physical Exam Vitals and nursing note reviewed. Constitutional: Appearance: Normal appearance. HENT: Right Ear: Tympanic membrane normal. Left Ear: Tympanic membrane normal. Mouth/Throat: Mouth: Mucous membranes are moist. Eyes: Pupils: Pupils are equal, round, and reactive to light. Cardiovascular: Rate and Rhythm: Normal rate and regular rhythm. Pulses: Normal pulses. Heart sounds: Normal heart sounds. Pulmonary: Effort: Pulmonary effort is normal. Breath sounds: Normal breath sounds. Musculoskeletal: Cervical back: Neck supple. Neurological: Mental Status: She is alert. documented in this encounter Plan of Treatment Not on file documented as of this encounter Visit Diagnoses Diagnosis Infection due to 2019 novel coronavirus- Primary documented in this encounter Care Teams Grass Farm Laborer Relationship Specialty Start Date End Date Yamila Dave PA-C [facility] [address] [address] PCP - General Physician Education Technician 04/14/20 Chadwick Jensen NP [address] [address] Nurse Practitioner Cardiovascular Disease 11/15/22 Chadwick Jensen NP [address] [address] Assigned Heart and Vascular Provider 03/03/23 08/17/23 documented as of this encounter
--- OUTSIDE RECORDS SUMMARY | 2023-10-05 13:28 | XMS_ITS | Encounter Summary ---
Author Name Unknown Organization [facility] Address [address] [facility] [place] [address] Care Team Providers Care Real Estate Broker Associate Name Role Phone Yamila Dave PA-C Primary Care Provider Rahul Ford MD Unavailable Un available Chadwick Jensen NP Unavailable [phone] Encounter Details Date Type Department Care Team (Late st Contact Info) Description 02/23/2023 9:00 AM CDT [facility] [address] [place] [address] Dyslipidemia; Benign essential hypertension Social History Tobacco Use Types Packs/Day Years [...] on file documented as of this encounter Procedures Procedure Name Priority Date/Time Associated Diagnosis Comments LIPID PROFILE Routine 02/23/2023 9:03 AM CDT Dyslipidemia BASIC METABOLIC PANEL Routine 02/23/2023 9:03 AM CDT Benign essential hypertension documented in this encounter Results * Basic metabolic panel (02/23/2023 9:03 AM CDT) Sodium 139 136 - 145 mmol/L 02/23/2023 9:35 AM CDT LABORATORY Potassium 4.1 3.4 - 5.3 mmol/L 02/23/2023 9:35 AM CDT LABORATORY Chloride 103 98 - 107 mmol/L 02/23/2023 9:35 AM CDT LABORATORY Carbon Dioxide (CO2) 27 22 - 29 mmol/L 02/23/2023 9:35 AM CDT LABORATORY Anion Gap 9 7 - 15 mmol/L 02/23/2023 9:35 AM CDT LABORATORY Urea Nitrogen 17.4 8.0 - 23.0 mg/dL 02/23/2023 9:35 AM CDT LABORATORY Creatinine 0.77 0.51 - 0.95 mg/dL 02/23/2023 9:35 AM CDT LABORATORY Calcium 9.5 8.8 - 10.2 mg/dL 02/23/2023 9:35 AM CDT LABORATORY Glucose 94 70 - 99 mg/dL 02/23/2023 9:35 AM CDT LABORATORY GFR Estimate 87 >60 mL/min/1.7 3m2 02/23/2023 9:35 AM CDT LABORATORY Blood STRUCTURE OF LEFT UPPER LIMB / Unknown Venipuncture / Unknown 02/23/2023 9:03 AM CDT 02/23/2023 9:05 AM CDT Rahul Ford MD LAB - BLOOD ORDERABLES LABORATORY [facility] [address] Lab (1st floor, no room number) [place] [address], [facility] [phone] * Lipid Profile (02/23/2023 9:03 AM CDT) Cholesterol 129 <200 mg/dL 02/23/2023 2:08 PM CDT [facility] Triglycerides 96 <150 mg/dL 02/23/2023 2:08 PM CDT [facility] Direct Measure HDL 57 >=50 mg/dL 2022 2:08 PM CDT [facility] LDL Cholesterol Calculated 53 <=100 mg/dL 02/23/2023 2:08 PM CDT [facility] Non HDL Cholesterol 72 <130 mg/dL 02/23/2023 2:08 PM CDT [facility] Blood STRUCTURE OF LEFT UPPER LIMB / Unknown Venipuncture / Unknown 02/23/2023 9:03 AM CDT 02/23/2023 9:05 AM CDT Narrative [facility] - 02/23/2023 2:08 PM CDT Cholesterol Desirable: ??<200 mg/dL Triglycerides Normal: ??Less than 150 mg/dL Borderline High: ??150-199 mg/dL High: ??200-499 mg/dL Very High: ??Greater than or equal to 500 mg/dL Direct Measure HDL Female: ??Greater than or equal to 50 mg/dL Male: ??Greater than or equal to 40 mg/dL LDL Cholesterol Desirable: ??<100mg/dL Above Desirable: ??100-129 mg/dL Borderline High: ??130-159 mg/dL High: ??160-189 mg/dL Very High: ??>= 190 mg/dL Non HDL Cholesterol Desirable: ??130 mg/dL Above Desirable: ??130-159 mg/dL Borderline High: ??160-189 mg/dL High: ??190-219 mg/dL Very High: ??Greater than or equal to 220 mg/dL Rahul Ford MD LAB - BLOOD ORDERABLES [facility] [address] [facility] [place] [address], [facility] [phone] documented in this encounter Visit Diagnoses Diagnosis Dyslipidemia Other and unspecified hyperlipidemia Benign essential hypertension Essential hypertension, benign documented in this encounter Care Teams Real Estate Broker Associate Relationship Specialty Start Date End Date Yamila Dave PA-C [facility] [address] [place] [address] PCP - General Physician Acquisitions Editor 04/14/20 Rahul Ford MD [facility] [address] [place] [address] Assigned Heart and Vascular Provider 01/23/21 03/02/23 Chadwick Jensen NP [address] [address] Nurse Practitioner Cardiovascular Disease 11/15/22 documented as of this encounter
--- OUTSIDE RECORDS SUMMARY | 2023-10-05 13:28 | XMS_ITS | Referral Summary ---
Author Name Unknown Organization [place] Address Formerly [facility] 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 [address] [place] [address] PCP - General Physician Superintendent Communications 04/14/20 Chadwick Jensen NP [address] [address] Nurse Practitioner Cardiovascular Disease 11/15/22 Chadwick Jensen NP [address] [address] Assigned Heart and Vascular Provider 08/25/23
--- OUTSIDE RECORDS SUMMARY | 2023-10-05 13:28 | XMS_ITS | Encounter Summary ---
Author Name Unknown Organization [place] Address [address] [facility] [place] [address] Care Team Providers Care Environmental Emergencies Assistant Name Role Phone Yamila Dave PA-C Primary Care Provider Chadwick Jensen ASSET PROTECTION SPECIALIST Unavailable [phone] Chadwick Jensen ASSET PROTECTION SPECIALIST Unavailable [phone] Reason for Visit * Reason Comments URI Sore throat, head/ne ck aches and pains from coughing so hard, non-productive/dry cough, going on 4 days now. Covid tests negative, 2-tests neg. Encounter Details Date Type Department Care Team (Late st Contact Info) Description 03/14/2023 11:25 AM CDT Office Visit [facility] [address] [place] [address] Xiomara Will MD [facility] [facility] [place] [address] Throat pain (Primary Dx); Acute cough Social History Tobacco Use Types Packs/Day Years [...] Sign Reading Time Taken Comments Blood Pressure 126/88 03/14/2023 11:28 AM CDT Pulse 66 03/14/2023 11:28 AM CDT Temperature 36.6 ??C (97.8 ??F) 03/14/2023 11:28 AM C DT Respiratory Rate 14 03/14/2023 11:28 AM CDT Oxygen Saturation 96% 03/14/2023 11:28 AM CDT Inhaled Oxygen Concentration - - Weight 81.6 kg (180 lb) 03/14/2023 11:28 AM CDT Height 160 cm (5' 3) 03/14/2023 11:28 AM CDT Body Mass Index 31.89 03/14/2023 11:28 AM CDT documented in this encounter Patient Instructions * Patient Instructions* Xiomara Will MD - 03/14/2023 11:25 AM CDT Tessalon perles 1-2 at a time up to three times per day to reduce coughing. Chloraseptic spray as a gargle for sore throat pain. Afrin nasal sprays 2 sprays in each nostril twice daily for 3 days. Then take a few days off and can repeat for another 3 days. documented in this encounter Progress Notes * Xiomara Will MD - 03/14/2023 11:25 AM CDT ICD-10-CM 1. Throat pain R07.0 Streptococcus A Rapid Screen w/Reflex to PCR Group A Streptococcus PCR Throat Swab 2. Acute cough R05.1 benzonatate (TESSALON) 100 MG capsule RST negative. Likely viral syndrome. PLAN: Patient Instructions Tessalon perles 1-2 at a time up to three times per day to reduce coughing. Chloraseptic spray as a gargle for sore throat pain. Afrin nasal sprays 2 sprays in each nostril twice daily for 3 days. Then take a few days off and can repeat for another 3 days. SUBJECTIVE: Kriss Song is a 62 year old female who presents to today with sore throat and mild cough for about 4 days. COVID tests x 2 at home have been negative. Cough is nonproductive and is impacting her sleep at night. Has also noted some neck soreness related to coughing. No chest pain or shortness of breath. No fevers. OBJECTIVE: BP 126/88 (BP Location: Right arm, Patient Position: Sitting, Cuff Size: Adult Large) Pulse 66 Temp 97.8 ??F (36.6 ??C) (Tympanic) Resp 14 Ht 1.6 m (5' 3) Wt 81.6 kg (180 lb) LMP (LMP Unknown) SpO2 96% BMI 31.89 kg/m?? GEN: well-appearing, in NAD ENT: TMs normal, oral MMM, pharynx with mild cobblestoning from post nasal drip, no exudates, uvulamidline Neck: no LAD Lungs: CTAN Results for orders placed or performed in visit on 03/14/23 Streptococcus A Rapid Screen w/Reflex to PCR Status: Normal Specimen: Throat; Swab Result Value Ref Range Group A Strep antigen Negative Negative documented in this encounter Plan of Treatment Not on file documented as of this encounter Procedures Procedure Name Priority Date/Time Associated Diagnosis Comments STREPTOCOCCUS A RAPID SCREEN W REFELX TO PCR Routine 03/14/2023 11:32 AM CDT Throat pain GROUP A STREPTOCOCCUS PCR THROAT SWAB Routine 03/14/2023 11:32 AM CDT Throat pain documented in this encounter Results * Group A Streptococcus PCR Throat Swab (03/14/2023 11:32 AM CDT) Group A strep by PCR Not Detected Not Detected 03/14/2023 4:50 PM CDT [facility] Swab STRUCTURE OF ANTERIOR PORTION OF NECK / Unknown Non-blood Collection / Unknown 03/14/2023 11:32 AM CDT 03/14/2023 11:46 AM CDT Narrative [facility] - 03/14/2023 4:50 PM CDT The Xpert Xpress Strep A test, performed on the [employer]?? [employer], is a rapid, qualitative in vitro diagnostic test for the detection of Streptococcus pyogenes (Group A ? - hemolytic Streptococcus, Strep A) in throat swab specimens from patients with signs and symptoms of pharyngitis. The Xpert Xpress Strep A test can be used as an aid in the diagnosis of Group A Streptococcal pharyngitis. The assay is not intended to monitor treatment for Group A Streptococcus infections. The Xpert Xpress Strep A test utilizes an automated real-time polymerase chain reaction (PCR) to detect Streptococcus pyogenes DNA. Xiomara Will MD LAB - MICRO GENERAL ORDERABLES [facility] [address] [facility], [address] [place] [address], [place] [phone] * Streptococcus A Rapid Screen w/Reflex to PCR (03/14/2023 11:32 AM CDT) [facility] Group A Strep antigen Negative Negative 03/14/2023 11:46 AM CDT [facility] Swab STRUCTURE OF ANTERIOR PORTION OF NECK / Unknown Non-blood Collection / Unknown 03/14/2023 11:32 AM CDT 03/14/2023 11:37 AM CDT Xiomara Will MD LAB - MICRO GENERAL ORDERABLES [facility] [address] [facility] (no room number, 1st floor of [facility]) [place] [address], [place] [phone] documented in this encounter Visit Diagnoses Diagnosis Throat pain- Primary Acute cough documented in this encounter Care Teams Environmental Emergencies Assistant Relationship Specialty Start Date End Date Yamila Dave PA-C NPI: [id number] [place] [address] [address] [place] [address] PCP - General Physician Metal Casket Assembler 04/14/20 Chadwick Jensen NP [address] [id number] Nurse Practitioner Cardiovascular Disease 11/15/22 Chadwick Jensen NP [address] [address] Assigned Heart and Vascular Provider 03/03/23 08/17/23 documented as of this encounter
--- OUTSIDE RECORDS SUMMARY | 2023-10-05 13:29 | XMS_ITS | Encounter Summary ---
Author Name Unknown Organization [place] Address [address] [facility] [place] [address] Care Team Providers Care Systems Administration Analyst Name Role Phone Yamila Dave PA-C Primary Care Provider Rahul Ford MD Unavailable Un available Chadwick Jensen NP Unavailable [phone] Encounter Details Date Type Department Care Team (Latest Contact Info) Description 02/13/2023 Travel Social History Tobacco Use Types Packs/Day Years Used Date Smoking Tobacco: Never Smokeless Tobacco: Never Alcohol Use Standard Drinks/Week Comments Yes 0 (1 standard drink = 0.6 oz pur e alcohol) rare occasion Sex and Gender Information Value Date Recorded Sex Assigned at Female 04/22/2020 2:54 PM CDT Gender Identity Female 04/22/2020 2:54 PM CDT Sexual Orientation Straight 04/22/2020 2: 54 PM CDT COVID-19 Exposure Response Date Recorded In the last 10 days, have yo u been in contact with someone who was confirmed or suspected to have Coronavirus/COVID-19? No / Unsure 02/13/2023 11:55 AM CDT documented as of this encounter Plan of Treatment Not on file documented as of this encounter Visit Diagnoses Not on filedocumented in this encounter Care Teams Systems Administration Analyst Relationship Specialty Start Date End Date Yamila Dave PA-C [facility] [address] [place] [address] PCP - General Physician Clerk Of Works 04/14/20 Rahul Ford MD [facility] [address] [place] [address] Assigned Heart and Vascular Provider 01/23/21 03/02/23 Chadwick Jensen NP [address] [address] Nurse Practitioner Cardiovascular Disease 11/15/22 documented as of this encounter
--- OUTSIDE RECORDS SUMMARY | 2023-10-05 13:29 | XMS_ITS | Encounter Summary ---
Author Name Unknown Organization [place] Address [address] [place] [address]. [place] [address] Care Team Providers Care Territory Sales Professional Name Role Phone Yamila Dave PA-C Primary Care Provider Alo Steel PA-C Unavailable [phone] Rahul Ford MD Unavailable Un available Chadwick Jensen NP Unavailable [phone] Chadwick Jensen NP Unavailable [phone] Chadwick Jensen NP Unavailable [phone] Rahul Ford MD Unavailable Un available Encounter Details Date Type Department Care Team (Late st Contact Info) Description 12/10/2020 Documentation Only INTERFACED REPORT Unknown, [...] month, have you been in contact with someone who was confirmed or suspected to have Coronavirus / COVID-19? No / Unsure 11/30/2020 12:43 PM CDT documented as of this encounter Plan of Treatment Not on file documented as of this encounter Visit Diagnoses Not on filedocumented in this encounter Care Teams Territory Sales Professional Relationship Specialty Start Date End Date Yamila Dave PA-C [facility] [place]NOTE 2[facility] [address] [place] [address] PCP - General Physician House Moving Supervisor 04/14/20 Alo Steel PA-C [address] [place] [address] Assigned Heart and Vascular Provider 11/17/20 01/22/21 Rahul Ford MD [address] [address] Assigned Heart and Vascular Provider 01/23/21 03/02/23 Chadwick Jensen NP [address] [address] Nurse Practitioner Cardiovascular Disease 11/15/22 Chadwick Jensen NP [address] [address] Assigned Heart and Vascular Provider 03/03/23 08/17/23 Chadwick Jensen NP [address] [address] Assigned Heart and Vascular Provider 08/25/23 Rahul Ford MD Assigned Heart and Vascular Provider 08/18/23 08/24/23 documented as of this encounter
--- OUTSIDE RECORDS SUMMARY | 2023-10-05 13:29 | XMS_ITS | Encounter Summary ---
Author Name Unknown Organization [place] Address Formerly [facility] [place] [address] Care Team Providers Care Mental Health Unit Lead Psychologist Name Role Phone Yamila Dave PA-C Primary Care Provider Alo Steel PA-C Unavailable [phone] Rahul Ford MD Unavailable Un available Chadwick Jensen NP Unavailable [phone] Chadwick Jensen NP Unavailable [phone] Chadwick Jensen NP Unavailable [phone] Rahul Ford MD Unavailable Un available Encounter Details Date Type Department Care Team (Late st Contact Info) Description 12/31/2020 Documentation Only INTERFACED REPORT Unknown, Provider Social [...] Orientation Straight 04/22/2020 2: 54 PM CDT documented as of this encounter Plan of Treatment Not on file documented as of this encounter Visit Diagnoses Not on filedocumented in this encounter Care Teams Mental Health Unit Lead Psychologist Relationship Specialty Start Date End Date Yamila Dave PA-C [facility] [address] [place] [address] PCP - General Physician Live In Housekeeper 04/14/20 Alo Steel PA-C [address] [address] Assigned Heart and Vascular Provider 11/17/20 01/22/21 Rahul Ford MD [address] [address] Assigned Heart and Vascular Provider 01/23/21 03/02/23 Chadwick Jensen NP [address] [address] Nurse Practitioner Cardiovascular Disease 11/15/22 Chadwick Jensen, LATOSHA [address] [address] Assigned Heart and Vascular Provider 03/03/23 08/17/23 Chadwick Jensen, LATOSHA [address] [address] Assigned Heart and Vascular Provider 08/25/23 Rahul Ford MD Assigned Heart and Vascular Provider 08/18/23 08/24/23 documented as of this encounter
--- OUTSIDE RECORDS SUMMARY | 2023-10-05 13:29 | XMS_ITS | Encounter Summary ---
Author Name Unknown Organization [place] Address [address] [facility] [place] [address] Care Team Providers Care Glassine Machine Tender Name Role Phone Yamila Dave PA-C Primary Care Provider Rahul Ford MD Unavailable Un available Chadwick Jensen NP Unavailable [phone] Reason for Referral * Medication Prior Authorization - Authorized Specialty Diagnoses / Procedures Referred By Contshoshana t Referred To Contact Diagnoses Acute right-sided low back pain without sciatica Vanita Sanchez PA-C [address] [place] [address] Referral ID Status Reason Start Date Expiration Date V isits Requested Visits Authorized [id number] Authorized 1 1 Reason for Visit * Reason Comments Urgent Care Pt fell down wooden stairs on Sunday and injured right side of middle and lower back with brusing down her back, left leg and left arm. Pt states her pain level is a 7 out of 10, no injury to the head. Pt states she took advil and tylenol with not relief. Encounter Details Date Type Department Care Team (Late st Contact Info) Description 02/13/2023 12:15 PM CDT Office Visit [facility] [address] [place] [address] Vanita Sanchez PA-C [address] [facility] [place] [address] Acute right-sided low back pain without sciatica (Primary Dx); Back muscle spasm; Contusion of soft tissue Social History Tobacco Use Types Packs/Day Years [...] Recorded In the last 10 days, have bradly u been in contact with someone who was confirmed or suspected to have Coronavirus/COVID-19? No / Unsure 02/13/2023 11:55 AM CDT documented as of this encounter Last Filed Vital Signs Vital Sign Reading Time Taken Comments Blood Pressure 118/76 02/13/2023 12:27 PM CDT Pulse 68 02/13/2023 12:27 PM CDT Temperature 37 ??C (98.6 ??F) 02/13/2023 12:27 PM CDT Respiratory Rate - - Oxygen Saturation 96% 02/13/2023 12:27 PM CDT Inhaled Oxygen Concentration - - Weight 84.4 kg (186 lb) 02/13/2023 12:27 PM CDT Height - - Body Mass Index 31.93 02/22/2022 10:41 AM CDT documented in this encounter Patient Instructions * Attachments The following attachments cannot be sent through Care Everywhere. * Muscle Spasm (Colombian) * Back Pain, Relieving (Colombian) * Back Contusion (Colombian) documented in this encounter Progress Notes * Vanita Sanchez PA-C - 02/13/2023 12:15 PM CDT Assessment & Plan Acute right-sided low back pain without sciatica Following a fall 5 days ago. On exam today she is in no acute distress. Vitals are stable. Moderateecchymosis noted on exam. Range of motion of the lower extremities, back and hip is fairly normal. X-ray deferred at this time. Lando is prescribed for moderate to severe pain. Naproxen also prescribed for pain. Recommended alternating ice and heat. Will anticipate gradual improvement in symptoms. Follow-up if any worsening symptoms. Patient agrees with the plan. - HYDROcodone-acetaminophen (NORCO) 5-325 MG tablet Dispense: 12 tablet; Refill: 0 - naproxen (NAPROSYN) 500 MG tablet Dispense: 14 tablet; Refill: 0 Back muscle spasm Flexeril is prescribed as needed for muscle spasms. Recommended heat pads to the affected areas. Follow-up if any worsening symptoms. Patient agrees with the plan. - cyclobenzaprine (FLEXERIL) 10 MG tablet Dispense: 30 tablet; Refill: 0 Contusion of soft tissue Following a fall a few days ago. No open wounds or laceration. Icing as needed. Will anticipate gradual improvement. Patient agrees with the plan. Return in about 10 days (around 02/23/2023) for Symptoms failing to improve. Vanita Sanchez PA-C [facility] [place] [place] is a 62 year old female who presents to clinic today for the following health issues: Chief Complaint Patient presents with ??? Urgent Care Pt fell down wooden stairs on Sunday and injured right side of middle and lower back with brusing down her back, left leg and left arm. Pt states her pain level is a 7 out of 10, no injury to the head. Pt states she took advil and tylenol with not relief. HPI Patient is presenting to urgent care today with a complaint of right sided low back pain. Inadvertently slipped from wooden stairs 4 days ago and hit her back. Patient reports she did not hit her head. Reports pain with certain movement. She is able to bear weight. Treatment tried: Icing. No headache. No vomiting. No paresthesias. No loss of bowel or bladder function. No hematuria. Patient reports history of low back pain with psoriatic arthritis. Review of Systems Constitutional, HEENT, cardiovascular, pulmonary, GI, , musculoskeletal, neuro, skin, endocrine and psych systems are negative, except as otherwise noted. Objective BP 118/76 (BP Location: Right arm, Patient Position: Sitting, Cuff Size: Adult Regular) Pulse 68 Temp 98.6 ??F (37 ??C) (Oral) Wt 84.4 kg (186 lb) LMP (LMP Unknown) SpO2 96% BMI 31.93 kg/m?? Physical Exam GENERAL: healthy, alert and no distress RESP: normal breathing effort MS: Moderate ecchymosis noted right lower back, right posterior thigh. Moderate tenderness to palpation. No tenderness along the spine. Range of motion right upper and lower extremities normal. Soft tissue contusion noted posterior right arm. Range of motion of the right elbow is normal. NEURO: She is alert and oriented documented in this encounter Plan of Treatment Not on file documented as of this encounter Visit Diagnoses Diagnosis Acute right-sided low back pain without sciatica- Primary Back muscle spasm Other symptoms referable to back Contusion of soft tissue Contusion of unspecified site documented in this encounter Care Teams Glassine Machine Tender Relationship Specialty Start Date End Date Yamila Dave PA-C [address] [address] PCP - General Physician Culinary Assistant 04/14/20 Rahul Ford MD [address] [address] Assigned Heart and Vascular Provider 01/23/21 03/02/23 Chadwick Jensen NP [address] [address] Nurse Practitioner Cardiovascular Disease 11/15/22 documented as of this encounter
--- OUTSIDE RECORDS SUMMARY | 2023-10-05 13:29 | XMS_ITS | Data Portability ---
Author Name Unknown Address [address] [place] [address] Phone [phone] Organization [place] [facility], [facility] [place] [facility] - Address [address] [place] [address] Care Team Providers Care Stablehand Name Role Phone DIEGO RIVAS Primary Care Provider Assessment Encounter Date Assessment Date Assessment LastModified by Organization Details LastModified Time 02/21/2017 02/21/2017 [employer]: This service is incident to care directed by the medical provider, who is physically present in the office at time of service. Assessment: As per consultation with pt and review of progress in the program, pt is motivated to follow diet plan. Currently following complete meal replacement plan, but reports eating off plan occasionally. Advise/Agree: Instructed pt on Trim guidelines to follow as needed. Reviewed weight loss goals and appropriateness of current weekly weight loss. Assist/Arrange: Pt will continue in classes and f/u as needed. Minutes spent with patient: [address], LDN eliecer Not available 02/21/2017 12:59:56 Plan of Treatment Reminders Order Date Submit Date Provider Last Modified By Organization Details Last Modified Time Details Appointments None recorded. Lab BMP, serum or plasma 2016 017 [facility], [address] [place], [address], 7 05:01:18 CMP, serum or plasma 2016 017 [facility], [address] [place], [address], 7 09:15:18 CBC w/ auto diff 2016 017 [facility], [address] [facility] [place], [address], 7 09:15:19 lipid panel, serum 2016 017 [facility], [address] [place] [place], [address], 7 09:15:16 TSH, serum or plasma 2016 017 [facility], [address] [place], [address], 7 09:15:19 uric acid, serum or plasma 2016 017 [facility], [address] [facility], [place], [address], 7 09:15:17 HbA1c (hemoglobi n A1c), blood 2016 017 [facility], [address] [place], [address], 7 09:15:20 magnesium, serum or plasma 2016 017 [facility], [address] [place], [address], 7 09:15:17 vitamin D, 25-hydroxy , total, serum 2016 017 [facility], [address] [place] [place], [address], 7 09:15:20 Referral None recorded. Procedures None recorded. Surgeries None recorded. Imaging electrocar diogram 2016 017 [email or web address] Not available 7 20:34:41 Medication Orders phentermin e 37.5 mg tablet 2017 018 [id number], [address], [place], [place], [id number], 8 13:24:36 phentermin e 37.5 mg tablet [address] [id number], [address], [place], [place], [id number], 7 13:24:12 Contrave 8 mg-90 mg tablet,ext ended release 2016 017 [facility] #[id number], [address], [place], [place], [id number], 7 13:16:34 Patient TargetsNo targets recorded. Patient Instructions Encounter Date Encounter Id Patient Instructions Last Modified By Organization Details Last Modified Time 01/09/2018 [id number] when you are overweight: care instructions Not available 01/09/2018 11:57:06 Discussed trying to wean off lisinopril and omeprazole cont low carb diet plan add resistance training to exercise regimen Not available 01/09/2018 11:56:33 09/04/2017 [id number] cont carb/portio n controlled diet plan cont regular exercise cont current meds Not available 09/04/2017 13:22:41 07/24/2017 [id number] cont CHERRY food srinivasan n cont regular exercise cont current meds except d/c contrave, start phentermine - serd Not available 07/24/2017 13:23:32 06/12/2017 [id number] start metamucile or benefiber for constipation decrease losartan by 1/2 continue complete meal replacement diet continue regular exercise continue current meds Not available 06/12/2017 13:26:48 05/14/2017 [id number] restart a carb/portion controlled diet plan restart regular exercise cont current meds start contrave - serd Not available 05/14/2017 20:10:32 04/16/2017 [id number] restart a complete meal replacement diet continue regular exercise continue current meds Not available 04/16/2017 19:33:59 03/19/2017 [id number] cont hybrid partial/complete meal replacement diet discussed saxenda or contravae - not ready for either at this time cont current meds cont regular exercise Not available 03/19/2017 19:46:33 02/05/2017 [id number] when you are overweight: care instructions [email or web address] Not available 02/05/2017 20:54:12 Cont complete meal replacement diet- meet with RD to review TRIM guidelines and poss transition. Cont reg exercise (goal is >200mins/week). Cont current meds. Encouraged weekly weigh-ins and attendance of lifestyle management classes. F/U with PMD for routine care. [email or web address] Not available 02/05/2017 19:42:23 01/22/2017 [id number] -cont full MR plan -add heavy whipping cream to coffee for satiation, or add vegetables to soup -to add Benefiber if needed for constipation -advised see sleep drNemesio regarding oral appliance if she is unable to tolerate CPAP -BMP today F/u 2 weeks. [email or web address] Not available 01/22/2017 20:19:48 01/08/2017 [id number] when you are overweight: care instructions [email or web address] Not available 01/08/2017 16:14:27 Discussed need for nutrition/exercis e/behavior modification to treat obesity and other related co-morbidities. Recommended attendance of group nutrition/exercis e/behavior classes. Cont regular F/U with PMD for routine care and screening exams- discuss abn EKG at scheduled appt next week. Cont current meds. Spent >30mins with patient, 50% of the time coordinating treatment and F/U plan for addressed concerns. [email or web address] Not available 01/08/2017 15:35:29 Reason for Referral None Reported. Results Created Date Observation Date Name Description Value Unit Range Abnormal Flag LastModifiedBy Organization Detail LastModifiedTime 01/23/2017 BMP, serum or plasm a glucose 97 mg/dL 65-99 normal Not Available [facility] [address] [place], [address], 01/23/2017 05:01:18 01/23/2017 BMP, serum or plasm a urea nitrogen (BUN) 31 mg/dL 7-25 high Not Available [facility] [address] [place], [address], 01/23/2017 05:01:18 01/23/2017 BMP, serum or plasm a creatinine 0.79 mg/dL 0.50-1 .05 normal Not Available [facility] [address], [address], 01/23/2017 05:01:18 01/23/2017 BMP, serum or plasm a eGFR non-afr. venezuelan 84 mL/mi n/1.7 3m2 > or = 60 normal Not Available [facility] [address], [address], 01/23/2017 05:01:18 01/23/2017 BMP, serum or plasm a eGFR 98 mL/mi n/1.7 3m2 > or = 60 normal Not Available [facility] [address], [address], 01/23/2017 05:01:18 01/23/2017 BMP, serum or plasm a BUN/creatini ne ratio 39 (calc ) 6-22 high Not Available [facility] [address], [address], 01/23/2017 05:01:18 01/23/2017 BMP, serum or plasm a sodium 139 mmol/ L 135-14 6 normal Not Available [facility] [address] [place] [address], [address], 01/23/2017 05:01:18 01/23/2017 BMP, serum or plasm a potassium 3.9 mmol/ L 3.5-5. 3 normal Not Available [facility] [address] [place] [address], [address], 01/23/2017 05:01:18 01/23/2017 BMP, serum or plasm a chloride 100 mmol/ L 98-110 normal Not Available [facility] [address] [place], [address], 01/23/2017 05:01:18 01/23/2017 BMP, serum or plasm a carbon dioxide 29 mmol/ L 20-31 normal Not Available [facility] [address] [place], [address], 01/23/2017 05:01:18 01/23/2017 BMP, serum or plasm a calcium 10.1 mg/dL 8.6-10 .4 normal Not Available [facility] [facility] [place], [address], 01/23/2017 05:01:18 01/09/20 17 01/09/2017 lipid panel , serum cholesterol, total 220 mg/dL 125-20 0 high Not Available [facility] [facility] [place], [address], 01/09/2017 09:15:16 01/09/2001/09/2017 lipid panel , serum HDL cholesterol 64 mg/dL > or = 46 normal Not Available [facility] [facility] [place], [address], 01/09/2017 09:15:16 01/09/2001/09/2017 lipid panel , serum triglyceride s 120 mg/dL <150 normal Not Available [facility] [place], [address], 01/09/2017 09:15:16 01/09/2001/09/2017 lipid panel , serum LDL-choleste rol 132 mg/dL _(anabel c) <130 high Not Available [facility] [address] [place], [address], 01/09/2017 09:15:16 01/09/20 17 01/09/2017 lipid panel , serum chol/HDLC ratio 3.4 (calc ) < or = 5.0 normal Not Available [facility] [address] [place] [place], [address], 01/09/2017 09:15:16 01/09/20 17 01/09/2017 lipid panel , serum non HDL cholesterol 156 mg/dL _(anabel c) normal Not Available [address], [address], 01/09/2017 09:15:16 01/09/20 17 01/09/2017 magne sium, serum or plasm a magnesium 2.1 mg/dL 1.5-2. 5 normal Not Available [address], [address], 01/09/2017 09:15:17 01/09/20 17 01/09/2017 uric acid, serum or plasm a uric acid 5.6 mg/dL 2.5-7. 0 normal Not Available [address] [place], [address], 01/09/2017 09:15:17 01/09/20 17 01/09/2017 CMP, serum or plasm a glucose 83 mg/dL 65-99 normal Not Available [address], [address], 01/09/2017 09:15:18 01/09/2001/09/2017 CMP, serum or plasm a urea nitrogen (BUN) 15 mg/dL 7-25 normal Not Available [facility] [address], [address], 01/09/2017 09:15:18 01/09/20 17 01/09/2017 CMP, serum or plasm a creatinine 0.70 mg/dL 0.50-1 .05 normal Not Available [facility] [address] [facility] [place], [address], 01/09/2017 09:15:18 01/09/20 17 01/09/2017 CMP, serum or plasm a eGFR non-afr. venezuelan 98 mL/mi n/1.7 3m2 > or = 60 normal Not Available [facility] [address] [facility] [place], [address], 01/09/2017 09:15:18 01/09/20 17 01/09/2017 CMP, serum or plasm a eGFR 113 mL/mi n/1.7 3m2 > or = 60 normal Not Available [facility] [address] [facility] [place], [address], 01/09/2017 09:15:18 01/09/20 17 01/09/2017 CMP, serum or plasm a BUN/creatini ne ratio not applic able (calc ) 6-22 Not Available [facility] [address] [place], [address], 01/09/2017 09:15:18 01/09/20 17 01/09/2017 CMP, serum or plasm a sodium 141 mmol/ L 135-14 6 normal Not Available [facility] [address] [place] [place], [address], 01/09/2017 09:15:18 01/09/20 17 01/09/2017 CMP, serum or plasm a potassium 4.2 mmol/ L 3.5-5. 3 normal Not Available [facility] [address] [facility] [place], [address], 01/09/2017 09:15:18 01/09/2001/09/2017 CMP, serum or plasm a chloride 101 mmol/ L 98-110 normal Not Available [facility] [address] [facility] [place], [address], 01/09/2017 09:15:18 01/09/20 17 01/09/2017 CMP, serum or plasm a carbon dioxide 29 mmol/ L 20-31 normal Not Available [facility] [address] [place], [address], 01/09/2017 09:15:18 01/09/20 17 01/09/2017 CMP, serum or plasm a calcium 9.9 mg/dL 8.6-10 .4 normal Not Available [facility] [address] [place], [address], 01/09/2017 09:15:18 01/09/20 17 01/09/2017 CMP, serum or plasm a protein, total 7.1 g/dL 6.1-8. 1 normal Not Available [facility] [address] [place], [address], 01/09/2017 09:15:18 01/09/2001/09/2017 CMP, serum or plasm a albumin 4.6 g/dL 3.6-5. 1 normal Not Available [facility] [address] [place], [address], 01/09/2017 09:15:18 01/09/20 17 01/09/2017 CMP, serum or plasm a globulin 2.5 g/dL_ (calc ) 1.9-3. 7 normal Not Available [facility] [place] [address] [address] [place], [address], 01/09/2017 09:15:18 01/09/2001/09/2017 CMP, serum or plasm a albumin/glob ulin ratio 1.8 (calc ) 1.0-2. 5 normal Not Available [facility] [address] [place], [address], 01/09/2017 09:15:18 01/09/20 17 01/09/2017 CMP, serum or plasm a bilirubin, total 0.5 mg/dL 0.2-1. 2 normal Not Available [facility] [address] [place], [address], 01/09/2017 09:15:18 01/09/20 17 01/09/2017 CMP, serum or plasm a alkaline phosphatase 90 U/L 33-130 normal Not Available [facility] [place], [address], 01/09/2017 09:15:18 01/09/20 17 01/09/2017 CMP, serum or plasm a AST 19 U/L 10-35 normal Not Available [facility] [address] [place], [address], 01/09/2017 09:15:18 01/09/20 17 01/09/2017 CMP, serum or plasm a ALT 25 U/L 6-29 normal Not Available [facility] [address] [place], [address], 01/09/2017 09:15:18 01/09/20 17 01/09/2017 CBC w/ auto diff white blood cell count 6.2 thous and/u L 3.8-10 .8 normal Not Available [facility] [place] [place], [address], 01/09/2017 09:15:18 01/09/2001/09/2017 CBC w/ auto diff red blood cell count 5.46 joesph on/uL 3.80-5 .10 high Not Available [facility] [place], [address], 01/09/2017 09:15:18 01/09/2001/09/2017 CBC w/ auto diff hemoglobin 14.1 g/dL 11.7-1 5.5 normal Not Available [facility] [place] [place], [address], 01/09/2017 09:15:18 01/09/20 17 01/09/2017 CBC w/ auto diff hematocrit 42.6 % 35.0-4 5.0 normal Not Available [facility] [address] [place], [address], 01/09/2017 09:15:18 01/09/20 17 01/09/2017 CBC w/ auto diff MCV 77.9 fL 80.0-1 00.0 low Not Available [facility] [address] [place], [address], 01/09/2017 09:15:18 01/09/20 17 01/09/2017 CBC w/ auto diff MCH 25.7 pg 27.0-3 3.0 low Not Available [facility] [address] [place], [address], 01/09/2017 09:15:18 01/09/20 17 01/09/2017 CBC w/ auto diff MCHC 33.0 g/dL 32.0-3 6.0 normal Not Available [facility] [address] [place], [address], 01/09/2017 09:15:18 01/09/20 17 01/09/2017 CBC w/ auto diff RDW 14.3 % 11.0-1 5.0 normal Not Available [facility] [address] [place], [address], 01/09/2017 09:15:18 01/09/20 17 01/09/2017 CBC w/ auto diff platelet count 210 thous and/u L 140-40 0 normal Not Available [facility] [address] [place], [address], 01/09/2017 09:15:18 01/09/20 17 01/09/2017 CBC w/ auto diff MPV 8.2 fL 7.5-12 .5 normal Not Available [facility] [address] [place], [address], 01/09/2017 09:15:18 01/09/20 17 01/09/2017 CBC w/ auto diff absolute neutrophils 4290 cells /uL 1500-7 800 normal Not Available [facility] [address] [place], [address], 01/09/2017 09:15:18 01/09/20 17 01/09/2017 CBC w/ auto diff absolute lymphocytes 1283 cells /uL 850-39 00 normal Not Available [facility] [address] [place], [address], 01/09/2017 09:15:18 01/09/20 17 01/09/2017 CBC w/ auto diff absolute monocytes 465 cells /uL 200-95 0 normal Not Available [facility] [address], [place], [address], 01/09/2017 09:15:18 01/09/20 17 01/09/2017 CBC w/ auto diff absolute eosinophils 136 cells /uL 15-500 normal Not Available [facility] [address] [place], [address], 01/09/2017 09:15:18 01/09/20 17 01/09/2017 CBC w/ auto diff absolute basophils 25 cells /uL 0-200 normal Not Available [facility] [address], [place], [address], 01/09/2017 09:15:18 01/09/20 17 01/09/2017 CBC w/ auto diff neutrophils 69.2 % normal Not Available [facility] [address], [place], [address], 01/09/2017 09:15:18 01/09/20 17 01/09/2017 CBC w/ auto diff lymphocytes 20.7 % normal Not Available [facility] [address] [facility] [place], [address], 01/09/2017 09:15:18 01/09/20 17 01/09/2017 CBC w/ auto diff monocytes 7.5 % normal Not Available [facility] [address] [facility] [place], [address], 01/09/2017 09:15:18 01/09/20 17 01/09/2017 CBC w/ auto diff eosinophils 2.2 % normal Not Available [facility] [address] [facility] [place], [address], 01/09/2017 09:15:18 01/09/20 17 01/09/2017 CBC w/ auto diff basophils 0.4 % normal Not Available [facility] [address] [place], [address], 01/09/2017 09:15:18 01/09/20 17 01/09/2017 TSH, serum or plasm a TSH 2.41 mIU/L normal Not Available [facility] [address] [facility] [place], [address], 01/09/2017 09:15:19 01/09/2001/09/2017 vitam in D, 25-hy droxy , total , serum vitamin D,25-oh,tota l,ia 42 NG/mL 30-100 normal Not Available [facility] [address] [facility] [place], [address], 01/09/2017 09:15:19 01/09/20 17 01/09/2017 HbA1c (hemo globi n A1c), blood hemoglobin A1C 5.2 %_of_ total _HGB <5.7 normal Not Available [facility] [address] [facility] [place], [address], 01/09/2017 09:15:20 01/09/20 17 01/08/2017 body compo sitio n latia sis (PROC ) No observ ation record ed. BARCODE Not Available 01/08/2017 15:06:14 01/09/20 17 01/08/2017 isaias carr am No observ ation record ed. BARCODE Not Available 01/08/2017 18:06:11 01/10/20 18 01/09/2018 body compo sitio n latia sis (PROC ) No observ ation record ed. BARCODE Not Available 01/09/2018 11:41:50 Result Notes None recorded. Problems Name Status Onset Date Resolution Date Notes Provider Name and Address Organization Details Recorded Time Essential hypertension Active 017 Praveena Stanford NP [address], [place], [address], [facility] 01/08/2017 15:26:16 Gastroesophageal reflux disease Active 017 Praveena Stanford NP [address], [place], [address], [facility] 01/08/2017 15:26:24 Obstructive sleep apnea syndrome Active 017 Praveena Stanford NP [address], [place], [address], [facility] 01/08/2017 15:26:31 Vitamin D deficiency Active 017 Praveena Stanford NP [address], [place], [address], [facility] 01/08/2017 15:26:52 Iron deficiency anemia Active 017 Praveena Stanford NP [address], [place], [address], [facility] 01/08/2017 15:27:01 Obesity Active 017 Praveena Stanford NP [address], [place], [address], [facility] 01/08/2017 15:27:32 Problem Notes None recorded. Procedures Surgical History Date Name Laterality Status Provider Name and Address Organization Details Recorded Time 6 Date of Last Mammogram completed Terri johnson [facility] 01/08/2017 14:38:03 6 Date of Last Pap Smear completed Terri johnson [facility] 01/08/2017 14:38:23 2 Date of Last Colonoscopy completed Terri johnson [facility] 01/08/2017 14:38:09 Imaging Results Imaging Date Name Status LastModified by Organization Details LastModified Time 01/08/2017 body composition analysis (PROC) completed BARCODE Information not available 01/08/2017 15:06:14 01/08/2017 electrocardiogram completed BARCODE Informa tion not available 01/08/2017 18:06:11 01/09/2018 body composition analysis (PROC) completed BARCODE Information not available 01/09/2018 11:41:50 Procedure Notes None recorded. Medical Equipment None Reported. Allergies Allergen ID Allergen Name Allergen Category Reaction Reaction Severity Criticality Documentation Date Start Date Code Code System Note Provider Name and Address Organization Details Recorded Time 543333 Substance with sulfonami de structure and antibacte rial mechanism of action (substanc e) medicatio n Not available Not available Not available 04/17/2016 56925 8003 SNOMED Breana Fayerdoliver johnson [facility] 6 16:27:07 [id number] Zoloft medicatio n rash Not available Not available 01/08/2017 03415 RxNorm Terri johnson [facility] 7 14:32:43 Medications Name Sig Start Date Stop Date Status Note LastModified by Organization Details LastModified Time prednisone 10 mg tablet active Not Available Not Available Not Available citalopram 40 mg tablet 09/04 completed Not Available Not Available Not Available azithromycin 250 mg tablet 01/08 completed Not Available Not Available Not Available benzonatate 200 mg capsule 03/19 completed Not Available Not Available Not Available citalopram 10 mg tablet TK 3 TS PO ONCE D active Not Available Not Available No t Available hydrocodone 5 mg-acetamino phen 325 mg tablet 01/08 completed Not Available Not Available Not Available prednisone 20 mg tablet 01/08 completed Not Available Not Available Not Available phentermine 37.5 mg tablet TAKE 1 TABLET BY MOUTH EVERY DAY active Not Available Not Available No t Available acetaminophe n 300 mg-codeine 30 mg tablet active Not Available Not Available Not Available sulfamethoxa zole 800 mg-trimethop rim 160 mg tablet active Not Available Not Available Not Available tramadol 50 mg tablet active Not Available Not Available No t Available amoxicillin 875 mg tablet 01/08 completed Not Available Not Available Not Available citalopram 20 mg tablet 01/08 completed Not Available Not Available Not Available benzonatate 100 mg capsule 01/08 completed Not Available Not Available Not Available tobramycin 0.3 % eye drops active Not Available Not Available Not Available omeprazole 20 mg capsule,janine yed release active Not Available Not Available Not Available losartan 50 mg-hydrochlo rothiazide 12.5 mg tablet TK 1 T PO QD active Not Available Not Available No t Available ondansetron 4 mg disintegrati ng tablet active Not Available Not Available No t Available fluticasone propionate 50 mcg/actuatio n nasal spray,suspen diann 01/08 completed Not Available Not Available Not Available naproxen 500 mg tablet active Not Available Not Available No t Available amoxicillin 875 mg-potassium clavulanate 125 mg tablet 09/04 completed Not Available Not Available Not Available Vitamin D3 25 mcg (1,000 unit) capsule Take by oral route. active Not Available Not Available No t Available losartan 100 mg-hydrochlo rothiazide 12.5 mg tablet 07/24 completed Not Available Not Available Not Available iron active Not Available Not Availa ble Not Available Acidophilus active Not Available Not A vailable Not Available Virtussin AC 10 mg-100 mg/5 mL oral liquid 09/04 completed Not Available Not Available Not Available Contrave 8 mg-90 mg tablet,exten ded release TAKE 1 TABLET EVERY MORNING X 7 DAYS, TWICE DAILY X 7 DAYS, 2 TABLETS EVERY MORNING& 1 TABLET EVERY EVENING X 7 DAYS, 2 TABLETS TWICE DAILY 07/24 completed Not Available Not Available Not Available Fluvirin 2620-7176 45 mcg (15 mcg x 3)/0.5 mL intramuscula r suspension ADM 0.5ML IM UTD 01/08 completed Not Available Not Available Not Available Vitals Date Recorded Heart rate Body height Body weight Respiratory rate Body mass index (BMI) Body temperature Systolic blood pressure Diastolic blood pressure Provider Name and Address Organization Details Last Updated DateTime 6 69 /min 160.02 cm 06219.5 8845 g 16 /min 32.8 kg/m2 97.7 [degF] 100 mm[Hg] 72 mm[Hg] Breana Fayeadama null, [facility] 6 16:27:07 Date Recorded Body height Provider Name an d Address Organization Details Last Updated DateTime 01/08/2017 160.02 cm Terri Leonard [facility], [facility] 01/08/2017 14:30:53 Date Recorded Body weight Body mass index (BMI) Heart rate Systolic blood pressure Diastolic blood pressure Provider Name and Address Organization Details Last Updated DateTime 01/08/2017 78060.43 g 34.5 kg/m2 70 /min 132 mm[Hg] 86 mm[Hg] Ashlye Davis [facility], [facility] 7 14:57:49 Date Recorded Body weight Provider Name an d Address Organization Details Last Updated DateTime 01/15/2017 16323.67 g Ashley Davis [facility], [facility] 01/15/2017 18:36:26 Date Recorded Body height Body weight Body mass index (BMI) Heart rate Systolic blood pressure Diastolic blood pressure Provider Name and Address Organization Details Last Updated DateTime 7 160.02 cm 62406.8 3 g 33.6 kg/m2 84 /min 120 mm[Hg] 80 mm[Hg] Terri Valle elizabeth, [facility] 7 19:49:36 Date Recorded Body height Body weight Body mass index (BMI) Heart rate Systolic blood pressure Diastolic blood pressure Provider Name and Address Organization Details Last Updated DateTime 7 160.02 cm 55962.7 7 g 33.1 kg/m2 74 /min 120 mm[Hg] 78 mm[Hg] Ashley Davis null, [facility] 19:26:52 Date Recorded Body weight Provider Name an d Address Organization Details Last Updated DateTime 02/19/2017 20198.46 g Ashley Davis null, [facility] 02/19/2017 18:45:18 Date Recorded Body weight Provider Name an d Address Organization Details Last Updated DateTime 02/26/2017 77174.5 g Terri Valle elizabeth, [facility] 02/26/2017 17:29:09 Date Recorded Body height Body mass index (BMI) Body weight Heart rate Systolic blood pressure Diastolic blood pressure Provider Name and Address Organization Details Last Updated DateTime 7 160.02 cm 32.2 kg/m2 87984.0 9 g 70 /min 110 mm[Hg] 78 mm[Hg] Ashley Davis elizabeth, [facility] 19:34:52 Date Recorded Body weight Provider Name an d Address Organization Details Last Updated DateTime 03/26/2017 88338.5 g Ashley Davis elizabeth, [facility] 03/26/2017 18:35:51 Date Recorded Body height Body mass index (BMI) Body weight Heart rate Systolic blood pressure Diastolic blood pressure Provider Name and Address Organization Details Last Updated DateTime 160.02 cm 31.9 kg/m2 17494.9 9 g 80 /min 110 mm[Hg] 80 mm[Hg] Terri Valle elizabeth, [facility] 19:08:36 Date Recorded Body height Body mass index (BMI) Body weight Heart rate Systolic blood pressure Diastolic blood pressure Provider Name and Address Organization Details Last Updated DateTime 160.02 cm 33.1 kg/m2 34714.3 4 g 76 /min 120 mm[Hg] 88 mm[Hg] Terri Valle elizabeth, [facility] 19:17:08 Date Recorded Body weight Provider Name an d Address Organization Details Last Updated DateTime 05/28/2017 87551.45 g Terri Valle elizabeth, [facility] 05/28/2017 18:43:50 Date Recorded Body height Body mass index (BMI) Body weight Heart rate Systolic blood pressure Diastolic blood pressure Provider Name and Address Organization Details Last Updated DateTime 7 160.02 cm 32 kg/m2 38830.5 g 70 /min 126 mm[Hg] 72 mm[Hg] Terri johnson, [facility] 7 13:01:48 Date Recorded Body height Body mass index (BMI) Body weight Heart rate Systolic blood pressure Diastolic blood pressure Provider Name and Address Organization Details Last Updated DateTime 7 160.02 cm 31.7 kg/m2 90753.7 5 g 80 /min 122 mm[Hg] 72 mm[Hg] Ashley Davis elizabeth, [facility] 7 13:03:20 Date Recorded Body height Body mass index (BMI) Body weight Heart rate Systolic blood pressure Diastolic blood pressure Provider Name and Address Organization Details Last Updated DateTime 8 160.02 cm 31.4 kg/m2 08571.6 5 g 92 /min 121 mm[Hg] 78 mm[Hg] Ashley Davis elizabeth, [facility] 8 12:52:05 Date Recorded Body height Body mass index (BMI) Body weight Heart rate Systolic blood pressure Diastolic blood pressure Provider Name and Address Organization Details Last Updated DateTime 8 160.02 cm 29.4 kg/m2 25993.6 1 g 70 /min 116 mm[Hg] 70 mm[Hg] [facility] 11:39:02 Social History Question Answer Notes LastModified by Organizat ion Details LastModified Time Tobacco Smoking Status Never Smoker Terri johnson [facility] 01/09/2018 11:39:21 What Is Your Level Of Alcohol Consumption? Occasional Information not available 04/17/2016 What Is Your Level Of Caffeine Consumption? Occasional [email or web address] Information not available 01/08/2017 How Much Tobacco Do You Chew? None Information not available 04/17/2016 What Type Of Diet Are You Following? REGULAR Information not available 04/17/2016 Which Illicit Or Recreational Drugs Have You Used? 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 No [email or web address] Information not available 01/09/2018 Have You Traveled Outside Of The [place] In The Last 21 Days (3 Weeks)? No Information not available 04/17/2016 Did You Hurt Yourself When You Fell In The Last Year? No [email or web address] Information not available 01/09/2018 Marital Status lata Drummondo n not available 04/17/2016 What Was The Date Of Your Most Recent Tobacco Screening? 01/09/2018 Information not available 03/28/2019 How Much Tobacco Do You Smoke? No Information not available 01/09/2018 How Many Years Have You Smoked Tobacco? 0 Information not available 03/19/2017 Sex: Female Functional Status Question Answer Note LastModified by Organization D etails LastModified Time What is your exercise level? None Information not available 04/17/2016 Mental Status None recorded. Family History Relationship Description Onset Age of this Age Resolved Age Notes Father Family history of cancer prostate Father Myocardial infarction 2 heart attacks, congestive heart failure Mother Depressive disorder Mother Anxiety Mother Hypertensive disorder Medical History Condition Response Bowel Disorder N Liver Problems N Seizure Disorder N Fatigue N Hernia N Constipation / Bowel Problem N Gastrointestinal Problems Y Skin Problems N Depression/Anxiety/Mood Disorder Y Prostate Problems N Chest Pain N Urinary Problems N Hypertension / High Blood Pressure Y Irregular Heart Beat N Headaches/Migraines N Dizziness/Fainting N Diabetes N Hearing Problems N Palpitations N Arthritis N Ear Pain/Infection N Cancer N Back Problems N Asthma N Heart Attack N Numbness/Tingling N Sleep Apnea Y Thyroid Disorder N High Cholesterol N Bone/Joint Problems N Gynecological History Statement/Question Response Date of Last Pap Smear 01/02/2016 Date of Last Colonoscopy 02/02/2012 Date of Last Mammogram 01/02/2016 Obstetrics History GPAL:G 0 P 0 0 0 0 Past Encounters Encounter ID Performer Location Encounter Start Date Encounter Closed Date Diagnosis/Indication [id number] Mariangel Jo [facility] [place] [address] [place] [address] 04/17/2016 15:56:59 04/18/2016 10:33:38 [id number] Praveena Stanford NP [facility] [address] [place] [address] 01/08/2017 14:25:43 01/08/2017 20:34:40 Essential hypertension Obesity Vitamin D deficiency Obstructive sleep apnea syndrome Gastroesophageal reflux disease Electrocardiogram abnormal [id number] Winnie Velasquez DO [facility] [place] [facility] [address] [place] [address] 01/22/2017 19:38:55 01/23/2017 13:42:34 Essential hypertension Obesity Obstructive sleep apnea syndrome Electrocardiogram abnormal [id number] Praveena Stanford NP [facility] [place] [facility] [address] [place] [address] 02/05/2017 19:21:08 02/06/2017 21:42:06 Obesity [id number] Comfort SILAS, RD [facility] [address] [place] [address] 02/21/2017 12:00:09 02/21/2017 13:00:15 [id number] Sage Watson MD [facility] [place] [facility] [address] [place] [address] 03/19/2017 19:26:18 03/20/2017 20:31:00 Obesity [id number] Sage Watson MD [facility] [place] [facility] [address] [place] [address] 04/16/2017 18:30:03 04/17/2017 17:20:29 Essential hypertension Obesity [id number] Sage Watson MD [facility] [place] [facility] [address] [place] [address] 05/14/2017 19:07:14 05/15/2017 12:30:26 Obesity Menopausal flushing [id number] Sage Watson MD [facility] [address] [place] [address] 06/12/2017 12:57:29 06/14/2017 14:18:51 Constipation Lightheadedness Obesity [id number] Sage Watson MD [facility] [address] [place] [address] 07/24/2017 12:56:52 07/25/2017 12:41:37 Obesity [id number] Sage Watson MD [facility] [address] [place] [address] 09/04/2017 12:40:14 09/05/2017 22:03:14 Essential hypertension Obesity [id number] Sage Watson MD [facility] [address] [place] [address] 01/09/2018 11:29:35 01/09/2018 20:00:38 Essential hypertension Obstructive sleep apnea syndrome Gastroesophageal reflux disease Obesity Health Concerns Section Related Observation LastModified by Organization Detai ls LastModified Time None Recorded Concern Status LastModified by Organization Details LastModified Time None Recorded Advance Directives Directive None Recorded Payers Encounter Date Sequence Insurance Name Policy Number Policy Sheehan Covered Member ID Sheehan Member ID Guarantor Name 01/09/2018 1 [employer] (PPO) [id number] Kirss Song [id number] Kriss Song 09/04/2017 1 [employer] (PP[employer]) [id number] Kriss Song [id number] Kriss Song 07/24/2017 1 [employer] (PP[employer]) [id number] Kriss Song [id number] Kriss Song 06/12/2017 1 [employer] (PPO) [id number] Kriss Song [id number] Kriss Song 05/14/2017 1 [employer] (PPO) [id number] Kriss Song [id number] Kriss Song 04/16/2017 1 [employer] (PPO) [id number] Kriss Song [id number] Kriss Song 03/19/2017 1 [employer] (PPO) [id number] Kriss Song [id number] Kriss Song 02/21/2017 1 [employer] (PPO) [id number] Kriss Song [id number] Rkiss Song 02/05/2017 1 [employer] (PPO) [id number] Kriss Song [id number] Kriss Song 01/22/2017 1 [employer] (PPO) [id number] Kriss Song [id number] Kriss Song 01/08/2017 1 [employer] (PPO) [id number] Kriss Song [id number] Kriss Song 04/17/2016 1 JESSEE (X) [id number] Kriss Angulosen [id number] Kriss Song Notes Date Note Type Note Provider Name and Address Organization Details Recorded Time 01/08/2017 text/html HPI Notes: HTN- take losartan/hctz daily. Obesity- excessive weight gain started 5 years ago and has yo-yo dieted since, highest weight was 199#. She has been on CHERRY, WW, and several self-imposed diets over the years. She has taken fen-phen, phentermine and Qsymia in the past without any s.e. No reg exercise. GERD- taking omeprazole daily. CADENCE- has been trying to get used to her CPAP machine since July. Vit D deficiency- takes otc vit D supp daily. Praveena Stanford NP [address] [facility] [address], [address], [facility] 01/08/2017 15:37:26 01/22/2017 text/html HPI Notes: HTN- take losartan/hctz daily. Obesity- on full MR plan for one week and doing well. struggling with hunger at times. CADENCE- has been trying to get used to her CPAP machine since July, but only uses it about 2 - 3 times per month. Abnl EKG - seeing construction site manager tomorrow for initial consult. Winnie Velasquez DO [address] [facility] [address], [address], [facility] 01/22/2017 20:20:14 02/05/2017 text/html HPI Notes: Obesi ty- lost 8# over the past month, on a complete meal replacement plan- frustrated with slow progress. Walking 12K steps daily for exercise. Praveena Stanford NP [address] [facility] [address], [place], [address], [facility] 02/05/2017 19:43:05 03/19/2017 text/html HPI Notes: Obesi ty- lost 13# sicne January. Walking daily for 30 min. Sage Watson MD [address] [facility],[address], [place], [address], [facility] 03/19/2017 19:46:58 04/16/2017 text/html HPI Notes: htn - losartan/hct daily, no s/s of hypotension. Walking 7500 - 12K steps daily. Plans on restart a full fast. obesity - lost 15# since January. Sage Watson MD [address] [place] [address],[address], [address], [facility] 04/16/2017 19:34:13 05/14/2017 text/html HPI Notes: [email or web address] bell to have hot flashes and menopause sxs - seen PMD and instructed that she is not a candidate for HRT. obesity - lost 8# sine January - struggling with further weight oss. Sage Watson MD [address] [place] [address],[address], [address], [facility] 05/14/2017 20:10:44 06/12/2017 text/html HPI Notes: constipation for the past several weeks -- not taking any otc fiber. lightheadedness with position change - has rx for lower dose of losartan but has not started yet. obesity - lost 14# since January. Taking contrave bid - constipation worsened since starting contrave. Walking for exercise. Sage Watson MD [address] [place] [address],[address], [address], [facility] 06/12/2017 13:27:39 07/24/2017 text/html HPI Notes: GERD - omeprazole daily, no dysphagia. Started [employer] food plan. Walking for exercise. obesity - lost 14# since January. Taking contrave bid - does not feel that is helping. Sage Watson MD [address] [place] [address],[address], [address], [facility] 07/24/2017 13:24:04 09/04/2017 text/html HPI Notes: htn - decreased losartan/hct daily without s.e. Not exercising consistently. Following a CHERRY diet plan. obesity - lost 14# since January. Taking phentermine 1/2 tab po daily without s.e. Sage Watson MD [address] [facility],[address], [place], [address], [facility] 09/04/2017 13:24:25 01/09/2018 text/html HPI Notes: htn - decreased losartan/hct daily without s.e. Jeet 5 x a week. Following a low carb diet plan. CADENCE - does not use cpap. gerd - omeprazole daily - no heartburn , no dysphagia. obesity - lost 29# since January 2017. Taking phentermine 1/2 tab po daily without s.e. Sage Watson MD [address] [place] [address],[facility] [address], [place], [address], [facility] 01/09/2018 11:57:09 OBGyn Episode No OBEpisode recorded.
--- OUTSIDE RECORDS SUMMARY | 2023-10-05 13:29 | XMS_ITS | Encounter Summary ---
Author Name Unknown Organization [facility] Address [address] [facility] [place] [address] Care Team Providers Care Instructor Hairspring Name Role Phone Yamila Dave PA-C Primary Care Provider Rahul Ford MD Unavailable Un available Chadwick Jensen NP Unavailable [phone] Encounter Details Date Type Department Care Team (Latest Contact Info) Description 02/16/2023 Travel Social History Tobacco Use Types Packs/Day [...] suspected to have Coronavirus/COVID-19? No / Unsure 02/16/2023 9:17 AM CDT documented as of this encounter Plan of Treatment Not on file documented as of this encounter Visit Diagnoses Not on filedocumented in this encounter Care Teams Instructor Hairspring Relationship Specialty Start Date End Date Yamila Dave PA-C [facility] [address] [place] [address] PCP - General Physician Hand Lens Polisher 04/14/20 Rahul Ford MD [facility] [address] [place] [address] Assigned Heart and Vascular Provider 01/23/21 03/02/23 Chadwick Jensen NP [address] [address] Nurse Practitioner Cardiovascular Disease 11/15/22 documented as of this encounter
--- OUTSIDE RECORDS SUMMARY | 2023-10-05 13:29 | XMS_ITS | Encounter Summary ---
Author Name Unknown Organization [facility] Address [address] [facility] [place] [address] Care Team Providers Care Junior Technical Writer Name Role Phone Sanamkeila Yamila Mojica PA-C Primary Care Provider Rahul Ford MD Unavailable Un available Alo Steel PA-C Unavailable [phone] Rahul Ford MD Unavailable Un available Chadwick Jensen CPR AMBULANCE DRIVER Unavailable [phone] Chadwick Jensen CPR AMBULANCE DRIVER Unavailable [phone] Chadwick Jensen CPR AMBULANCE DRIVER Unavailable [phone] Rahul Ford MD Unavailable Un available Encounter Details Date Type Department Care Team (Late st Contact Info) Description 09/23/2020 [facility] [address] [address] Rahul Ford MD Social History Tobacco Use Types Packs/Day Years [...] have Coronavirus / COVID-19? 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 documented as of this encounter Plan of Treatment Not on file documented as of this encounter Visit Diagnoses Not on filedocumented in this encounter Care Teams Junior Technical Writer Relationship Specialty Start Date End Date Yamila Dave PA-C [facility] [address] [place] [address] PCP - General Physician Field Services Director 04/14/20 Rahul Ford MD Assigned Heart and Vascular Provider 06/25/20 11/16/20 Alo Steel PA-C [address] [place] [address] Assigned Heart and Vascular Provider 11/17/20 01/22/21 Rahul Ford MD [address] [place] [address] Assigned Heart and Vascular Provider 01/23/21 03/02/23 Chadwick Jensen, LATOSHA [address] [place] [address] Nurse Practitioner Cardiovascular Disease 11/15/22 Chadwick Jensen, LATOSHA [address] [place] [address] Assigned Heart and Vascular Provider 03/03/23 08/17/23 Chadwick Jensen NP [address] [place] [address] Assigned Heart and Vascular Provider 08/25/23 Rahul Ford MD Assigned Heart and Vascular Provider 08/18/23 08/24/23 documented as of this encounter
--- OUTSIDE RECORDS SUMMARY | 2023-10-05 13:29 | XMS_ITS | Clinical Summary ---
Author Name Unknown Organization [facility] Address [place], [place] [address] Care Team Providers Care Operations Administrator Name Role Phone Yamila Dave PA-C Primary Care Provider [phone] Allergies Active Allergy Reactions Criticality Noted Date Comments Paroxetine Rash Low 09/26/2006 Sertraline Rash Low 02/19/2012 Sulfa (Sulfonamide Antibiotics) Hives 11/01 Bupropion Hives 11/18/2020 Medications Medication Sig Dispensed Refills Start Date End Date Status famotidine (PEPCID) 20 mg tablet Take 20 mg by mouth 2 times daily. 0 Active citalopram (CELEXA) 20 mg tablet Take 20 mg by mouth once daily. 0 Active methotrexate (RHEUMATREX) 2.5 mg tablet Take 2.5 mg by mouth once weekly. Takes every Sunday evening 0 Active medication order composer 1 Capsule. Turmeric Curcumin 0 Active folic acid/multivit-min/ lutein (CENTRUM SILVER ORAL) Take by mouth. 0 Active aspirin (ECOTRIN) 81 mg enteric coated tablet Take 81 mg by mouth once daily. 0 Active atorvastatin (LIPITOR) 40 mg tablet Take 40 mg by mouth once daily. 0 Active clopidogreL (Plavix) 75 mg tablet Take 75 mg by mouth once daily. 0 Active folic acid 1 mg tablet Take 1 mg by mouth once daily. 0 Active losartan (COZAAR) 25 mg tablet Take 25 mg by mouth once daily. 0 Active metoprolol succinate SR (TOPROL XL) 12.5 mg as half tablet Take 12.5 mg by mouth 2 times daily. 0 Active oxyCODONE-acetamin ophen (PERCOCET) 5-325 mg per tabletIndications: Post-operative state Take 1-2 Tablets by mouth every 6 hours if needed for Pain. Max acetaminophen dose: 4000mg in 24 hrs. 6 Tablet 0 11/19/2020 Active Social History Tobacco Use Types Packs/Day Years Used Date Smoking Tobacco: Never Smokeless Tobacco: Never Alcohol Use Standard Drinks/Week Comments Yes 0 (1 standard drink = 0.6 oz pur e alcohol) occasional-1 drink per month Sex and Gender Information Value Date Recorded Sex Assigned at Not on file Gender Identity Not on file Sexual Orientation Not on file Obstetrics History Last Filed Vital Signs Vital Sign Reading Time Taken Comments Blood Pressure 133/68 11/19/2020 9:00 AM CDT Pulse 58 11/19/2020 9:15 AM CDT Temperature 36.3 ??C (97.3 ??F) 11/19/2020 8:28 AM CD T Respiratory Rate 18 11/19/2020 9:15 AM CDT Oxygen Saturation 91% 11/19/2020 9:15 AM CDT Inhaled Oxygen Concentration - - Weight 83.5 kg (184 lb) 11/19/2020 6:24 AM CDT Height 160 cm (5' 3) 11/19/2020 6:24 AM CDT Body Mass Index 32.59 11/19/2020 6:24 AM CDT Plan of Treatment Health Maintenance Due Date Last Done Comments Tdap 1972 Depression screening for age 12+ 1973 HIV for age 15-65 1976 BMI (ht and wt on same day) for age 18+ 1979 Hepatitis C screening for ag e 18-79 1979 Tetanus booster 1981 Colonoscopy through age 75 2006 Lipids for age 45-75 2006 Mammogram for age 45-75 2006 Zoster (shingles) series for age 50+ (1 of 2) 2011 COVID-19 vaccine series (2022- season) 2023 12/30/2020, 12/09/2020 Influenza for age 50-64 05/04/2023 Pap test for age 21-65 06/15/2025 , 06/15/2022, 04/23/2019 Pneumococcal series for age 6-64 Aged Out No longer eligible b ased on patient's age to complete this topic Advance Directives Latest Code Status on File Code Status Date Activated Date Inactivated Comments Full Code 11/19/2020 5:56 AM 11/19/2020 1:25 PM Question Answer Comments Code Status Discussion: Not Discussed Care Teams Operations Administrator Relationship Specialty Start Date End Date Yamila Dave PA-C [address] [place] [address] PCP - General Emergency Medicine 11/05/20
--- OUTSIDE RECORDS SUMMARY | 2023-10-05 13:29 | XMS_ITS | Encounter Summary ---
Author Name Unknown Organization [place] Address [address] [facility] [place] [address] Care Team Providers Care Bond Broker Name Role Phone Yamila Dave PA-C Primary Care Provider Rahul Ford MD Unavailable Un available Chadwick Jensen NP Unavailable [phone] Chadwick Jensen NP Unavailable [phone] Chadwick Jensen NP Unavailable [phone] Rahul Ford MD Unavailable Un available Encounter Details Date Type Department Care Team (Late st Contact Info) Description 04/19/2022 External Order Results [facility] [address] [place] [address] Outside, Provider Social History Tobacco Use Types Packs/Day [...] suspected to have Coronavirus/COVID-19? No / Unsure 03/28/2022 9:58 AM CDT documented as of this encounter Plan of Treatment Not on file documented as of this encounter Procedures Procedure Name Priority Date/Time Associated Diagnosis Comments IONIZED CALCIUM Routine 04/19/2022 12:00 PM CDT BASIC METABOLIC PANEL Routine 04/19/2022 12:00 PM CDT CBC WITH PLATELETS Routine 04/19/2022 12 :00 PM CDT documented in this encounter Results * Ionized Calcium (04/19/2022 12:00 PM CDT) Calcium Ionized (External) 1.26 1.11 - 1.33 mmol/L NON-INTERFACED (ONBASE SCANS) Blood 04/19/2022 12:0 0 PM CDT Narrative BREEZE PFT - 04/20/2022 2:32 PM CDT Verified by Joshua Delacruz on 04/20/2022. Provider Outside LAB - BLOOD ORDERABL ES Performing Organization Address City/[facility]/ZIP Co de Phone Number BREEZE PFT NON-INTERFACED (ONBASE SCANS) * CBC with platelets (04/19/2022 12:00 PM CDT) Hematocrit (External) 37.9 33.0 - 51.0 % NON-INTERFACED (ONBASE SCANS) Hemoglobin (External) 12.8 12.0 - 16.0 gm/dL NON-INTERFACED (ONBASE SCANS) Platelet Count (External) 195 140 - 440 K/uL NON-INTERFACED (ONBASE SCANS) RBC Count (External) 4.15 4.00 - 5.20 m/uL NON-INTERFACED (ONBASE SCANS) WBC Count (External) 6.41 4.50 - 11.00 K/uL NON-INTERFACED (ONBASE SCANS) Blood 04/19/2022 12:0 0 PM CDT Narrative BREEZE PFT - 04/20/2022 2:32 PM CDT Verified by Joshua Delacruz on 04/20/2022. Provider Outside LAB - BLOOD ORDERABL ES BREEZE PFT NON-INTERFACED (ONBASE SCANS) * Basic metabolic panel (04/19/2022 12:00 PM CDT) Urea Nitrogen (External) 8 8 - 26 mg/dl NON-INTERFACED (ONBASE SCANS) Chloride (External) 104 98 - 109 mmol/L NON-INTERFACED (ONBASE SCANS) Creatinine (External) 0.7 0.6 - 1.3 mg/dl NON-INTERFACED (ONBASE SCANS) Potassium (External) 4.1 3.5 - 4.9 mmol/L NON-INTERFACED (ONBASE SCANS) Sodium (External) 141 138 - 146 mmol/L NON-INTERFACED (ONBASE SCANS) CO2 (External) 28 20 - 32 mmol/L NON-INTERFACED (ONBASE SCANS) Glucose (External) 90 60 - 115 mg/dl NON-INTERFACED (ONBASE SCANS) Blood 04/19/2022 12:0 0 PM CDT Narrative ABELARDO PFT - 04/20/2022 2:32 PM CDT Verified by Joshua Delacruz on 04/20/2022. Provider Outside LAB - BLOOD ORDERABL ES ABELARDO PFT NON-INTERFACED (ONBASE SCANS) documented in this encounter Visit Diagnoses Not on filedocumented in this encounter Care Teams Bond Broker Relationship Specialty Start Date End Date Yamila Dave PA-C [facility] [address] [place] [address] PCP - General Physician Automotive Parts Salesperson 04/14/20 Rahul Ford MD [facility] [address] [address] Assigned Heart and Vascular Provider 01/23/21 03/02/23 Chadwick Jensen NP [address] [address] Nurse Practitioner Cardiovascular Disease 11/15/22 Chadwick Jensen NP [address] [address] Assigned Heart and Vascular Provider 03/03/23 08/17/23 Chadwick Jensen NP [address] [address] Assigned Heart and Vascular Provider 08/25/23 Rahul Ford MD Assigned Heart and Vascular Provider 08/18/23 08/24/23 documented as of this encounter
--- NOTE | 2023-10-05 13:40 | CRLHL7_ITS ---
For Patients: As a result of the Century Cures Act, medical imaging exams and procedure reports are released immediately into your electronic medical record. You may view this report before your referring provider. If you have questions, please contact your health care provider. BILATERAL DIGITAL SCREENING MAMMOGRAM WITH TOMOSYNTHESIS AND COMPUTER-AIDED DETECTION CLINICAL HISTORY: Routine screening exam. COMPARISON: 09/12/2022, 08/24/2020, 05/28/2019. TECHNIQUE: Digital mammogram in CC and MLO projections including computer-aided detection (CAD). Tomosynthesis utilized. BREAST COMPOSITION: There are areas of scattered fibroglandular density. FINDINGS: RIGHT Breast: Focal asymmetric density in the retroareolar plane 4 cm from the nipple. LEFT Breast: No suspicious findings. IMPRESSION: RIGHT breast asymmetry/mass. RECOMMENDATIONS: Additional mammographic views of the RIGHT breast including 3D spot compression CC/MLO. RIGHT breast ultrasound may also be required. BI-RADS Category 0: Incomplete: Need Additional Imaging Evaluation and/or Prior Mammograms for Comparison The [facility] will contact the patient for follow-up. A lay language report of this examination will be provided to the patient. Dictated by Scotty Felder MD @ 10/09/2023 10:28:06 AM alyssaj/Dictated by: Scotty Felder MD @ 10/09/2023 10:28:00 AM (Electronically Signed)
== END 2023-10-05 13:25 | disposition home or self-care (01) ==
LOC: MAMMO 13:26
PROVIDERS: PCP Physician Assistant Medical; Visit Provider Physician Assistant Medical
DX: Z12.31 Encounter for screening mammogram for malignant neoplasm of breast (principal); N63.10 Unspecified lump in the right breast, unspecified quadrant
CPT/HCPCS: 77063; 77067

== ENCOUNTER 2023-11-20 10:33 | Outpatient (CLI) | payer BC, SELFPAY ==
--- NOTE | 2023-11-20 10:45 | MM_ITS ---
Patient: GEOVANNI SARAH Facility:?[facility] Patient ID:?[id number] Site Patient ID:?[id number]. Site :?1960 Study:?XRay-Breast Right 3D W/CAD-11/20/2023 11:15:31 AM Ordering Physician:Chun Final Report: DIGITAL DIAGNOSTIC RIGHT BREAST MAMMOGRAM WITH COMPUTER-AIDED DETECTION AND TOMOSYNTHESIS 11/20/2023 CLINICAL HISTORY: RIGHT breast mass/asymmetry. COMPARISON: 10/05/2023. TECHNIQUE: Digital RIGHT mammogram in 2 projections. Real-time ultrasound imaging of RIGHT breast with imaging documentation. Scanning was performed by both the technologist and the radiologist. BREAST COMPOSITION: Scattered fibroglandular densities. FINDINGS: 3D spot compression cc/MLO right breast mammogram images submitted. Persistent nodular density within the RIGHT breast without architectural distortion or suspicious calcifications. Targeted RIGHT breast ultrasound performed at 8 o`clock, 3 cm from the nipple. Benign multi duct ectasia is present. No intraductal nodule or mass. No suspicious findings. IMPRESSION: No evidence of malignancy. RECOMMENDATIONS: Annual BILATERAL screening mammography. BI-RADS Category 2: Benign Results and recommendations discussed with the patient. Dictated by Scotty Felder MD @ 11/20/2023 11:37:30 AM CHIO/jade DW/Dictated by: Scotty Felder MD @ 11/20/2023 11:37:00 AM Signed by:?Scotty Felder MD @11/20/2023 1:45:50 PM (Electronic Signature)
--- NOTE | 2023-11-20 11:15 | US_ITS ---
Patient: GEOVANNI SARAH Facility:?[facility] Patient ID:?[id number] Site Patient ID:?[id number] Site :?1960 Study:?US-Breast RT BREAST LMT / DR. KING TO READ-11/20/2023 11:34:48 AM Ordering Physician:?ANANTH HINOJOSA Final Report: See RIGHT digital diagnostic mammogram from same date for RIGHT breast ultrasound report. DW/Dictated by: Scotty King MD @ 11/20/2023 11:37:00 AM Signed by:?Scotty King MD @11/20/2023 1:45:54 PM (Electronic Signature)
== END 2023-11-20 10:34 | disposition home or self-care (01) ==
LOC: MAMMO 10:33
PROVIDERS: PCP Physician Assistant Medical; Visit Provider Physician Assistant Medical
DX: N63.10 Unspecified lump in the right breast, unspecified quadrant (principal); N64.89 Other specified disorders of breast
CPT/HCPCS: 76642; 77065; G0279

== ENCOUNTER 2024-01-07 14:18 | Outpatient (CLI) | payer BC, SELFPAY ==
--- OUTSIDE RECORDS SUMMARY | 2024-01-07 14:21 | XMS_ITS | Encounter Summary ---
Author Name Unknown Organization [place] Address [address] [facility] [place] [address] Care Team Providers Care Video Systems Engineer Name Role Phone Yamila Dave PA-C Primary Care Provider Rahul Ford MD Unavailable Un available Chadwick Jensen NP Unavailable [phone] Chadwick Jensen NP Unavailable [phone] Chadwick Jensen NP Unavailable [phone] Rahul Ford MD Unavailable Un available Encounter Details Date Type Department Care Team (Late st Contact Info) Description 04/19/2022 External Order Results [facility] [address] [place] [address] Outside, Provider Social History Tobacco Use Types [...] as of this encounter Plan of Treatment Upcoming Encounters Date Type Department Care Team (Latest Contact Info) Description 03/20/2024 7:30 AM CDT Hospital Encounter [facility] [address] [place] [phone] Kong Diop MD [facility] [address] [place] [address] 03/20/2024 7:30 AM CDT - 03/20/2024 11:00 AM CDT Surgery [facility] [address] [place] [phone] Kong Diop MD [facility] [address] [facility] [address] [place] [address] LEFT TOTAL HIP ARTHROPLASTY DIRECT ANTERIOR APPROACH WITH ORTHOGRID Scheduled Procedures Name Priority Associated Diagnoses Date/Ti me ARTHROPLASTY, HIP, TOTAL, DIRECT ANTERIOR APPROACH, USING ORTHOGRID Degenerative joint disease of left hip 03/20/2024 7:30 AM CDT documented as of this encounter Procedures Procedure [...] SCANS) Blood 04/19/2022 12:0 0 PM CDT Nisha ZHOU PFT - 04/20/2022 2:32 PM CDT Verified by Joshua Delacruz on 04/20/2022. Provider Outside LAB - BLOOD ORDERABL ES ABELARDO PFT NON-INTERFACED (ONBASE SCANS) * CBC with [...] Blood 04/19/2022 12:0 0 PM CDT Narrative KATHIEEZE PFT - 04/20/2022 2:32 PM CDT Verified [...] Provider Outside LAB - BLOOD ORDERABL ES KATHIEEZStar PFT NON-INTERFACED (ONBASE SCANS) documented in this encounter Visit Diagnoses Not on filedocumented in this encounter Care Teams Video Systems Engineer Relationship Specialty Start Date End Date Yamila Dave PA-C [address] [address] PCP - General Physician Fresh [employer] Cake Decorator 04/14/20 Rahul Ford MD [address] [address] Assigned Heart and Vascular Provider 01/23/21 03/02/23 Chadwick Jensen NP [address] [address] Nurse Practitioner Cardiovascular Disease 11/15/22 Chadwick Jensen NP [address] [address] Assigned Heart and Vascular Provider 03/03/23 08/17/23 Chadwick Jensen NP [address] [address] Assigned Heart and Vascular Provider 08/25/23 Rahul Ford MD Assigned Heart and Vascular Provider 08/18/23 08/24/23 documented as of this encounter
--- OUTSIDE RECORDS SUMMARY | 2024-01-07 14:21 | XMS_ITS | Clinical Summary ---
Author Name Unknown Organization [place] Address [address] [place] [address]. [place] [address] Care Team Providers Care Circuit Board Drafter Name Role Phone Yamila Dave PA-C Primary Care Provider Chadwick Jensen DIRECTOR WRITING Unavailable [phone] Chadwick Jensen DIRECTOR WRITING Unavailable [phone] Allergies Active Allergy Reactions Criticality Noted Date Comments Bupropion Hives 11/18/2020 Paroxetine Rash Low 09/26/2006 Sertraline Rash Low 02/19/2012 Sulfa Antibiotics Rash Low 01/25/2020 Medications Medication Sig Dispensed Refills Start Date End Date Status folic acid (FOLVITE) 1 MG tablet Take 1 mg by mouth daily 12/21/2019 Active methotrexate 2.5 MG tablet 15 mg every 7 days 01/09/2020 Active citalopram (CELEXA) 20 MG tablet Take 20 mg by mouth daily 04/07/2020 Active Vitamin D3 (CHOLECALCIFEROL) 25 mcg (1000 units) tablet Take 2,000 Units by mouth Active Multiple Vitamin (MULTI-VITAMINS) TABS Take by mouth daily Active Doxylamine Succinate, Sleep, (SLEEP AID PO) Take by mouth as needed Active ketorolac (TORADOL) 10 MG tablet Take 1 tablet (10 mg) by mouth every 6 hours as needed for pain Take as sparingly as possible. Avoid taking any other NSAIDS while using this medication. 10 tablet 09/17/2020 Active Additional Information Patient not taking.Reported on 02/22/2022 golimumab (SIMPONI) 50 MG/0.5ML auto-injector pen Simponi 50 mg/0.5 mL subcutaneous pen injector Active omeprazole (PRILOSEC) [address] capsule omeprazole 20 mg capsule,delayed release Active atorvastatin (LIPITOR) 40 MG tabletIndications:C oronary artery disease involving apache coronary artery of apache heart without angina pectoris,Palpitatio ns Take 1 tablet (40 mg) by mouth daily 90 tablet 3 04/06/2022 Active ASPIRIN LOW DOSE 81 MG EC tabletIndications:C oronary artery disease involving apache coronary artery of apache heart without angina pectoris Take 1 tablet (81 mg) by mouth daily 90 tablet 3 04/07/2022 Active cyclobenzaprine (FLEXERIL) 10 MG tabletIndications:B ack muscle spasm Take 1 tablet (10 mg) by mouth 3 times daily as needed for muscle spasms 30 tablet 02/13/2023 Active losartan (COZAAR) 100 MG tabletIndications:B enign essential hypertension Take 1 tablet (100 mg) by mouth daily 90 tablet 02/23/2023 Active metoprolol tartrate (LOPRESSOR) 25 MG tabletIndications:C oronary artery disease involving apache coronary artery of apache heart without angina pectoris,Palpitatio ns Take 1 tablet (25 mg) by mouth 2 times daily 180 tablet 02/23/2023 Active aspirin-acetaminoph en-caffeine (EXCEDRIN MIGRAINE) 250-250-65 MG tablet Take 1 tablet by mouth daily as needed for headaches Active ibuprofen (ADVIL/MOTRIN) 200 MG tablet Take 200 mg by mouth every 4 hours as needed for pain Active Active Problems Problem Noted Date Diagnosed Date Coronary artery disease 04/03/2020 Essential hypertension 01/08/2017 Gastroesophageal reflux disease 01/08/2017 Iron deficiency anemia 01/08/2017 Obesity 01/08/2017 Obstructive sleep apnea syndrome 01/08/2017 Vitamin D deficiency 01/08/2017 Immunizations Name Administration Dates Next Due COVID-19 MONOVALENT 12+ (Pfizer) 12/30/2020,04/2021 Family History Medical History Relation Comments [...] 03/14/2023 11:28 AM CDT Plan of Treatment Upcoming Encounters Date Type Department Care Team (Latest Contact Info) Description 03/20/2024 7:30 AM CDT Hospital Encounter [facility] [address] [place] [phone] Kong Diop MD [facility] [address] [address] 03/20/2024 7:30 AM CDT - 03/20/2024 11:00 AM CDT [facility] [address] [place] [phone] Kong Diop MD [facility] [address] [address] LEFT TOTAL HIP ARTHROPLASTY DIRECT ANTERIOR APPROACH WITH ORTHOGRID Scheduled Procedures Name Priority Associated Diagnoses Date/Ti me ARTHROPLASTY, HIP, TOTAL, DIRECT ANTERIOR APPROACH, USING ORTHOGRID Degenerative joint disease of left hip 03/20/2024 7:30 AM CDT Health Maintenance Due Date Last Done Comments [...] Vaccine ( season) 2023 08/01/2021, 12/30/2020, 12/09/2020 PHQ-2 (once per calendar year) 2023 02/23/2023 LIPID 02/24/2024 02/23/2023, 02/02, 08/11/2020, Additional history exists INFLUENZA VACCINE (Season Ended) 2024 06/19/2022, 06/13/2022, 06/17/2021, Additional history exists PAP 06/15/2025 06/15/2022, 06/15/2022 GLUCOSE 02/23/2026 02/23/2023, 03/03, 02/22/2022, Additional history exists DTAP/TDAP/TD IMMUNIZATION (3 - [...] on patient's age to complete this topic Goals Goal Patient Goal Type Associated Problems Recent Progress Patient-Stated? Author MYC ECC SURG ENROLL Care Plan MyC ECC SURG ENROLL No Mariaa Garcia Procedures Procedure Name Priority Date/Time Associated Diagnosis Comments BASIC METABOLIC PANEL Routine 02/23/2023 9:03 AM CDT Benign essential hypertension LIPID PROFILE Routine 02/23/2023 9:03 AM CDT Dyslipidemia MAMMOGRAM - HIM SCAN Routine 08/24/2020 HCL PAP SMEAR Routine 01/26/1999 1:18 PM CDT Gynecologic Examination from Last 3 Months or Most Recently Relevant to Health Maintenance Results * Lipid Profile (02/23/2023 9:03 AM CDT) [...] MD LAB - BLOOD ORDERABLES [facility] [address] [facility] [place] [address], [facility] [phone] * Basic metabolic panel (02/23/2023 9:03 AM CDT) Sodium 139 136 - 145 mmol/L 02/23/2023 9:35 AM CDT LABORATORY Potassium 4.1 3.4 - 5.3 mmol/L 02/23/2023 9:35 AM CDT [facility] Chloride 103 98 - 107 mmol/L 02/23/2023 9:35 AM CDT [facility] Carbon Dioxide (CO2) 27 22 - 29 mmol/L 02/23/2023 9:35 AM CDT [facility] Anion Gap 9 7 - 15 mmol/L 02/23/2023 9:35 AM CDT [facility] Urea Nitrogen 17.4 8.0 - 23.0 mg/dL 02/23/2023 9:35 AM CDT LABORATORY Creatinine 0.77 0.51 - 0.95 mg/dL 02/23/2023 9:35 AM CDT [facility] Calcium 9.5 8.8 - 10.2 mg/dL 02/23/2023 9:35 AM CDT LABORATORY Glucose 94 70 - 99 mg/dL 02/23/2023 9:35 AM CDT [facility] GFR Estimate 87 >60 mL/min/1.7 3m2 02/23/2023 9:35 AM CDT LABORATORY Blood STRUCTURE OF LEFT UPPER LIMB / Unknown Venipuncture / Unknown 02/23/2023 9:03 AM CDT 02/23/2023 9:05 AM CDT Rahul Ford MD LAB - BLOOD ORDERABLES LABORATORY [facility] [address] [facility] (1st floor, no room number) [place] [address], [facility] [phone] * Mammogram - HIM Scan (08/24/2020) Negative Anatomical Region Laterality Modality Other Provider Outside IMG MAMMOGRAPHY CECE ORTIZ * PAP SMEAR (01/26/1999 1:18 PM CDT) Unlabelled DNR [facility] Biopsy Sent DNR [facility] Source VAG,CERV,E NDOCERV [facility] LMP POST [facility] PARA 3 [facility] 2 [facility] Clinical History DNR [facility] Therapy DNR [facility] Last Pap Diagnosis WITHIN NORMAL LIMITS [facility] PAP Date [id number] [facility] Specimen # DNR [facility] Tissue DNR [facility] Tissue Date DNR [facility] Statement of Adequacy [facility] Comment: SATISFACTORY FOR INTERPRETATION POST MENOPAUSAL PATIENT. ??NO ENDOCERVICAL CELLS SEEN. General Categorization DNR [facility] Descriptive Diagnosis [facility] Comment: WITHIN NORMAL LIMITS ATROPHIC CELL PATTERN Recommendations DNR [facility] DNR 114,,,,,, [facility] DNR DNR [facility] DNR DNR [facility] DNR DNR [facility] . [facility] Comment: ?PAP SMEARS ARE SUBJECT TO BOTH FALSE NEGATIVE AND FALSE ? POSITIVE RESULTS EVIDENCED BY DATA PUBLISHED IN THE ? MEDICAL LITERATURE. ??YOUR PATIENT'S RESULT SHOULD BE ? INTERPRETED IN THIS CONTEXT, TOGETHER WITH THE PATIENT'S ? HISTORY AND CLINICAL FINDINGS. TESTING LOCATION ? THIS TEST [facility]FOR[facility] ? [address] [facility]. [id number] ? PHONE NUMBERS FOR CYTOLOGY INQUIRES, INCLUDING SLIDE REQUESTS ? EXT. [id number] ?? EXT. [id number] 01/24/1999 Melvi Agosto MD LABORATORY [facility] from Last 3 Months or Most Recently Relevant to Health Maintenance Additional Health Concerns Active Problems Noted Date Diagnosed Date MyC ECC SURG ENROLL 11/16/2023 Care Teams Circuit Board Drafter Relationship Specialty Start Date End Date Yamila Dave PA-C [facility] [address] [place] [address] PCP - General Physician Carbon Coating Machine Operator 04/14/20 Chadwick Jensen NP [address] [address] Nurse Practitioner Cardiovascular Disease 11/15/22 Chadwick Jensen NP [address] [address] Assigned Heart and Vascular Provider 08/25/23
--- OUTSIDE RECORDS SUMMARY | 2024-01-07 14:21 | XMS_ITS | Referral Summary ---
Author Name Unknown Organization [place] Address [address] [place] [address]. [place] [address] Care Team Providers Care Cotton Tier Name Role Phone Yamila Dave PA-C Primary Care Provider Chadwick Jensen BAG MACHINE ADJUSTER Unavailable [phone] Chadwick Jensen BAG MACHINE ADJUSTER Unavailable [phone] Allergies Active Allergy Reactions Criticality Noted Date [...] 40 MG tabletIndications:C oronary artery disease involving p[place] coronary artery of [place] heart without angina pectoris,Palpitatio ns Take 1 tablet (40 mg) by mouth daily 90 tablet 3 04/06/2022 Active ASPIRIN LOW DOSE 81 MG EC tabletIndications:C oronary artery disease involving [place] coronary artery of [place] heart without angina pectoris Take 1 tablet [...] 25 MG tabletIndications:C oronary artery disease involving [place] coronary artery of [place] heart without angina pectoris,Palpitatio ns Take 1 [...] Next Due COVID-19 MONOVALENT 12+ (Pfizer) 12/30/2020,04/2021 Social History Tobacco Use Types Packs/Day [...] Description 03/20/2024 7:30 AM CDT [facility] [address] [place] [phone] Kong Diop MD [facility] [address] [address] 03/20/2024 7:30 AM CDT - 03/20/2024 11:00 AM CDT [facility] [address] [place] [id number] Kong Diop MD [facility] [address] [address] LEFT TOTAL HIP ARTHROPLASTY DIRECT ANTERIOR APPROACH WITH ORTHOGRID Scheduled Procedures Name Priority Associated Diagnoses Date/Ti me ARTHROPLASTY, HIP, TOTAL, DIRECT ANTERIOR APPROACH, USING ORTHOGRID Degenerative joint disease of left hip 03/20/2024 7:30 AM CDT Goals Goal Patient Goal Type Associated Problems [...] Ford MD LAB - BLOOD ORDERABLES LABORATORY [facility] [place] [facility] [address] [facility], Room [address] [address], [facility] [phone] * Basic metabolic panel (02/23/2023 9:03 AM CDT) [facility] Sodium 139 136 - 145 mmol/L 02/23/2023 [...] Ford MD LAB - BLOOD ORDERABLES LABORATORY [facility] Acute Care Lab [address] [facility] Lab (1st floor, no room number) [place] [address], [facility] [phone] * Mammogram - HIM Scan (08/24/2020) Negative Anatomical Region Laterality Modality Other Provider Outside IMG MAMMOGRAPHY [facility] * PAP SMEAR (01/26/1999 1:18 PM CDT) Unlabelled DNR [facility] Biopsy Sent DNR [facility] Source VAG,CERV,E NDOCERV [facility] LMP POST [facility] PARA 3 [facility] 2 [facility] Clinical History DNR [facility] Therapy [facility]NR [facility] Last Pap Diagnosis WITHIN NORMAL LIMITS [facility] PAP Date [id number] [facility] Specimen # DNR [facility] Tissue DNR [facility] Tissue Date DNR [facility] Statement of Adequacy [facility] Comment: SATISFACTORY FOR INTERPRETATION POST MENOPAUSAL PATIENT. ??NO ENDOCERVICAL CELLS SEEN. General Categorization DNR [facility] Descriptive Diagnosis [facility] Comment: WITHIN NORMAL LIMITS ATROPHIC CELL PATTERN Recommendations DNR QUES [facility] DNR 114,,,,,, [facility] DNR DNR [facility] DNR DNR [facility] DNR DNR [facility] . [facility] Comment: ?PAP SMEARS ARE SUBJECT TO BOTH FALSE NEGATIVE AND FALSE ? POSITIVE RESULTS EVIDENCED BY DATA PUBLISHED IN THE ? MEDICAL LITERATURE. ??YOUR PATIENT'S RESULT SHOULD BE ? INTERPRETED IN THIS CONTEXT, TOGETHER WITH THE PATIENT'S ? HISTORY AND CLINICAL FINDINGS. TESTING LOCATION ? THIS TEST WAS PERFORMED AT [facility] ? [address] [facility]. [id number] ? PHONE NUMBERS FOR CYTOLOGY INQUIRES, INCLUDING SLIDE REQUESTS ? EXT. [id number] ?? EXT. [id number] 01/24/1999 Melvi Agosto MD LABORATORY [facility] from Last 3 Months or Most Recently Relevant to Health Maintenance Additional Health Concerns Active Problems Noted Date Diagnosed Date MyC ECC SURG ENROLL 11/16/2023 Care Teams Cotton Tier Relationship Specialty Start Date End Date Yamila Dave PA-C [facility] [address] [place] [address] PCP - General Physician Lapel Baster 04/14/20 Chadwick Jensen NP [address] [id number] Nurse Practitioner Cardiovascular Disease 11/15/22 Chadwick Jensen NP [address] [id number] Assigned Heart and Vascular Provider 08/25/23
--- OUTSIDE RECORDS SUMMARY | 2024-01-07 14:21 | XMS_ITS | Encounter Summary ---
Author Name Unknown Organization [place] Address [address] [facility] [place] [address] Care Team Providers Care Boilers Inspector Name Role Phone Yamila Dave Galina YOST Primary Care Provider Alo Steel PA-C Unavailable [phone] Rahul Ford MD Unavailable Un available Chadwick Jensen NP Unavailable [phone] Chadwick Jensen NP Unavailable [phone] Chadwick Jensen NP Unavailable [phone] Rahul Ford MD Unavailable Un available Encounter [...] Description 03/20/2024 7:30 AM CDT Hospital Encounter [facility] [address] [place] [address] Kong Diop MD [facility] [address] [facility] [address] [place] [address] 03/20/2024 7:30 AM CDT - 03/20/2024 11:00 AM CDT Surgery [facility] [address] [place] [phone] Kong Diop MD [facility] [address] [place] [address] LEFT TOTAL HIP ARTHROPLASTY DIRECT ANTERIOR APPROACH WITH ORTHOGRID Scheduled Procedures Name Priority Associated Diagnoses Date/Ti me ARTHROPLASTY, HIP, TOTAL, DIRECT ANTERIOR APPROACH, USING ORTHOGRID Degenerative joint disease of left hip 03/20/2024 7:30 AM CDT documented as of this encounter Visit Diagnoses Not on filedocumented in this encounter Care Teams Boilers Inspector Relationship Specialty Start Date End Date Yamila Dave PA-C [facility] [address] [place] [address] PCP - General Physician Psychology Instructor 04/14/20 Alo Steel PA-C [address] [place] [address] Assigned Heart and Vascular Provider 11/17/20 01/22/21 Rahul Ford MD [address] [place] [address] Assigned Heart and Vascular Provider 01/23/21 03/02/23 Chadwick Jensen NP [address] [address] Nurse Practitioner Cardiovascular Disease 11/15/22 Chadwick Jensen, LATOSHA [address] [address] Assigned Heart and Vascular Provider 03/03/23 08/17/23 Chadwick Jensen NP [address] [address] Assigned Heart and Vascular Provider 08/25/23 Rahul Ford MD Assigned Heart and Vascular Provider 08/18/23 08/24/23 documented as of this encounter
--- OUTSIDE RECORDS SUMMARY | 2024-01-07 14:21 | XMS_ITS | Clinical Summary ---
Author Name Unknown Organization [employer] [employer] [facility] Address [place], [place] [address] Care Team Providers Care Nailing Machine Operator Name Role Phone Yamila Dave PA-C Primary Care Provider [phone] Allergies Active Allergy Reactions Criticality Noted Date Comments Paroxetine Rash Low 09/26/2006 Sertraline Rash Low 02/19/2012 Sulfa (Sulfonamide Antibiotics) Hives 11/01 Bupropion Hives 11/18/2020 Medications Medication Sig Dispensed Refills Start Date End Date Status famotidine (PEPCID) 20 mg tablet Take 20 mg by mouth 2 times daily. Active citalopram (CELEXA) 20 mg tablet Take 20 mg by mouth once daily. Active methotrexate (RHEUMATREX) 2.5 mg tablet Take 2.5 mg by mouth once weekly. Takes every Sunday evening Active medication order composer 1 Capsule. Turmeric Curcumin Active folic acid/multivit-min/ lutein (CENTRUM SILVER ORAL) Take by mouth. Active aspirin (ECOTRIN) 81 mg enteric coated tablet Take 81 mg by mouth once daily. Active atorvastatin (LIPITOR) 40 mg tablet Take 40 mg by mouth once daily. Active clopidogreL (Plavix) 75 mg tablet Take 75 mg by mouth once daily. Active folic acid 1 mg tablet Take 1 mg by mouth once daily. Active losartan (COZAAR) 25 mg tablet Take 25 mg by mouth once daily. Active metoprolol succinate SR (TOPROL XL) 12.5 mg as half tablet Take 12.5 mg by mouth 2 times daily. Active oxyCODONE-acetamin ophen (PERCOCET) 5-325 mg per tabletIndications: Post-operative state Take 1-2 Tablets by mouth every 6 hours if needed for Pain. Max acetaminophen dose: 4000mg in 24 hrs. 6 Tablet 11/19/2020 Active Social History Tobacco Use Types [...] 2023 12/30/2020, 12/09/2020 Influenza for age 50-64 05/04/2024 Pap test for age 21-65 06/15/2025 , 06/15/2022, 04/23/2019 Pneumococcal series for age 6-64 Aged Out No longer eligible b ased on patient's age to complete this topic Procedures Procedure Name Priority Date/Time Associated Diagnosis Comments HPV THIN PREP Routine 06/15/2022 9:45 AM CDT Encounter for screening for malignant neoplasm of cervix from Last 3 Months or Most Recently Relevant to Health Maintenance Results * HPV HIGH RISK (06/15/2022 9:45 AM CDT) TYPE 16 Negative Negative 06/21/2022 9:30 AM CDT [facility] TYPE 18 Negative Negative 06/21/2022 9:30 AM CDT [facility] OTHER HIGH RISK TYPES Negative Negative 06/21/2022 9:[address] [facility] Other (Cervical/Vagina l) 06/15/2022 9:45 AM CDT 06/16/2022 8:28 AM CDT Narrative [facility] - 06/21/2022 9:30 AM CDT HPV types 16, 18, 31, 33, 35, 39, 45, 51, 52, 56, 58, 59, 66 and 68 DNA were undetectable or below the pre-set threshold. Methodology: Jamie Cristina 4800 HPV Test Yamila Dave PA-C MICROBIOLOGY [facility] [address] [place] [address], from Last 3 Months or Most Recently Relevant to Health Maintenance Advance Directives * Full Code (Latest Code Status on File) Date Activated Date Inactivated Comments 11/19/2020 5:56 AM 11/19/2020 1:25 PM Question Answer Comments Code Status Discussion: Not Discussed Care Teams Nailing Machine Operator Relationship Specialty Start Date End Date Yamila Dave PA-C [address] [place] [address] PCP - General Emergency Medicine 11/05/20
--- OUTSIDE RECORDS SUMMARY | 2024-01-07 14:21 | XMS_ITS | Encounter Summary ---
Author Name Unknown Organization [place] Address Counts include 234 beds at the [facility] [place] [address] Care Team Providers Care Systems Manager Name Role Phone Sanamkeila Yamila Mojica PA-C Primary Care Provider Rahul Ford MD Unavailable Un available Alo Steel PA-C Unavailable [phone] Rahul Ford MD Unavailable Un available Chadwick Jensen TRANSITION ASSISTANT Unavailable [phone] Chadwick Jensen TRANSITION ASSISTANT Unavailable [phone] Chadwick Jensen TRANSITION ASSISTANT Unavailable [phone] Rahul Ford MD Unavailable Un available Encounter Details Date Type Department Care Team (Late st Contact Info) Description 09/23/2020 [facility] [address] [address] Rahul Ford MD Social History [...] COVID-19? No / Unsure 09/20/2020 7:44 AM PROCESSING REP documented as of this encounter Plan of Treatment Upcoming Encounters Date Type Department Care Team (Latest Contact Info) Description 03/20/2024 7:30 AM CDT Hospital Encounter [facility] [address] [place] [phone] Kong Diop MD [facility] [address] [place] [address] 03/20/2024 7:30 AM CDT - 03/20/2024 11:00 AM CDT Surgery [facility] [address] [place] [address] Kong Diop MD [facility] [address] [facility] [address] [place] [address] LEFT TOTAL HIP ARTHROPLASTY DIRECT ANTERIOR APPROACH WITH ORTHOGRID Scheduled Procedures Name Priority Associated Diagnoses Date/Ti me ARTHROPLASTY, HIP, TOTAL, DIRECT ANTERIOR APPROACH, USING ORTHOGRID Degenerative joint disease of left hip 03/20/2024 7:30 AM CDT documented as of this encounter Visit Diagnoses Not on filedocumented in this encounter Care Teams Systems Manager Relationship Specialty Start Date End Date Yamila Dave PA-C [facility] [address] [place] [address] PCP - General Physician Bricklayer Supervisor 04/14/20 Rahul Ford MD Assigned Heart and Vascular Provider 06/25/20 11/16/20 Alo Steel PA-C [address] [place] [address] Assigned Heart and Vascular Provider 11/17/20 01/22/21 Rahul Ford MD [address] [address] Assigned Heart and Vascular Provider 01/23/21 03/02/23 Chadwick Jensen NP [address] [address] Nurse Practitioner Cardiovascular Disease 11/15/22 Chadwick Jensen NP [address] [address] Assigned Heart and Vascular Provider 03/03/23 08/17/23 Chadwick Jensen NP [address] [address] Assigned Heart and Vascular Provider 08/25/23 Rahul Ford MD Assigned Heart and Vascular Provider 08/18/23 08/24/23 documented as of this encounter
--- OUTSIDE RECORDS SUMMARY | 2024-01-07 14:21 | XMS_ITS | Encounter Summary ---
Author Name Unknown Organization [place] Address [address] [place] [address] Care Team Providers Care Sales Estimator Name Role Phone SanamEvangelista pedrazamaggie Mojica PA-C Primary Care Provider Alo Steel PA-C Unavailable [phone] Rahul Ford MD Unavailable Un available Chadwick Jensen NP Unavailable [phone] Chadwick Jensen NP Unavailable [phone] Chadwick Jensen NP Unavailable [phone] Rahul Ford MD Unavailable Un available Encounter [...] Description 03/20/2024 7:30 AM CDT Hospital Encounter [facility] [address] [place] [phone] Kong Diop MD [facility] [address] [facility] [address] [place] [address] 03/20/2024 7:30 AM CDT - 03/20/2024 11:00 AM CDT Surgery [facility] [address] [place] [phone] Kong Diop MD [facility] [address] [facility] [address] [place] [address] LEFT TOTAL HIP ARTHROPLASTY DIRECT ANTERIOR APPROACH WITH ORTHOGRID Scheduled Procedures Name Priority Associated Diagnoses Date/Ti me ARTHROPLASTY, HIP, TOTAL, DIRECT ANTERIOR APPROACH, USING ORTHOGRID Degenerative joint disease of left hip 03/20/2024 7:30 AM CDT documented as of this encounter Visit Diagnoses Not on filedocumented in this encounter Care Teams Sales Estimator Relationship Specialty Start Date End Date Yamila Dave PA-C [facility] [address] [place] [address] PCP - General Physician Surface Mount Technology Operator 04/14/20 Alo Steel PA-C [address] [facility] [place] [address] Assigned Heart and Vascular Provider 11/17/20 01/22/21 Rahul Ford MD [address] [place] [address] Assigned Heart and Vascular Provider 01/23/21 03/02/23 Chadwick Jensen NP [address] [place] [address] Nurse Practitioner Cardiovascular Disease 11/15/22 Chadwick Jensen NP [address] [id number] Assigned Heart and Vascular Provider 03/03/23 08/17/23 Chadwick Jensen NP [address] [address]10215 Assigned Heart and Vascular Provider 08/25/23 Rahul Ford MD Assigned Heart and Vascular Provider 08/18/23 08/24/23 documented as of this encounter
== END 2024-01-07 14:19 | disposition home or self-care (01) ==
PROVIDERS: PCP Physician Assistant Medical; Visit Provider Physician Assistant Medical
DX: E03.9 Hypothyroidism, unspecified (principal); R00.2 Palpitations
CPT/HCPCS: 84443; 86140

== ENCOUNTER 2024-02-25 13:56 | Outpatient (REF) | payer BC, SELFPAY ==
--- OUTSIDE RECORDS SUMMARY | 2024-02-25 14:15 | XMS_ITS | Clinical Summary ---
Author Organization [place] Address [address] [facility] [place] [address] Care Team Providers Care Energy Conservation Representative Name Role Phone Yamila Dave PA-C Primary Care Provider Chadwick Jensen NP Unavailable [phone] Rahul Ford MD Unavailable Un available Rahul Ford MD Unavailable Un available Allergies Active Allergy Reactions Criticality Noted Date Comments Bupropion Hives 11/18/2020 Paroxetine Rash Low 09/26/2006 Sertraline Rash Low 02/19/2012 Sulfa Antibiotics Rash Low 01/25/2020 Medications Medication Sig Dispensed Refills Start Date End Date Status citalopram (CELEXA) 20 MG tablet Take 20 mg by mouth daily 0 Active Multiple Vitamin (MULTI-VITAMINS) TABS Take by mouth daily Active golimumab (SIMPONI) 50 MG/0.5ML auto-injector pen Simponi 50 mg/0.5 mL subcutaneous pen injector Active omeprazole (PRILOSEC) [address] capsule omeprazole 20 mg capsule,delayed release Active atorvastatin (LIPITOR) 40 MG tabletIndications :Coronary artery disease involving eklutna coronary artery of eklutna heart without angina pectoris,Palpitat ions Take 1 tablet (40 mg) by mouth daily 90 tablet 3 2 Active ASPIRIN LOW DOSE 81 MG EC tabletIndications :Coronary artery disease involving ekl[place] coronary artery of ekl[place] heart without angina pectoris Take 1 tablet (81 mg) by mouth daily 90 tablet 3 2 Active losartan (COZAAR) 100 MG tabletIndications :Benign essential hypertension Take 1 tablet (100 mg) by mouth daily 90 tablet 3 Active metoprolol tartrate (LOPRESSOR) 25 MG tabletIndications :Coronary artery disease involving eklutna coronary artery of eklutna heart without angina pectoris,Palpitat ions Take 1 tablet (25 mg) by mouth 2 times daily 180 tablet 3 Active azaTHIOprine 100 MG TABS Take 100 mg by mouth daily 4 Active spironolactone (ALDACTONE) 25 MG tablet Take 25 mg by mouth daily 3 Active folic acid (FOLVITE) 1 MG tablet Take 1 mg by mouth daily 0 01/30/20 24 Discontinued methotrexate 2.5 MG tablet 15 mg every 7 days 0 01/30/20 24 Discontinued Vitamin D3 (CHOLECALCIFEROL) 25 mcg (1000 units) tablet Take 2,000 Units by mouth 01/30/20 24 Discontinued Doxylamine Succinate, Sleep, (SLEEP AID PO) Take by mouth as needed 01/30/20 24 Discontinued ketorolac (TORADOL) 10 MG tablet Take 1 tablet (10 mg) by mouth every 6 hours as needed for pain Take as sparingly as possible. Avoid taking any other NSAIDS while using this medication. 10 tablet 1 01/30/20 24 Discontinued cyclobenzaprine (FLEXERIL) 10 MG tabletIndications :Back muscle spasm Take 1 tablet (10 mg) by mouth 3 times daily as needed for muscle spasms 30 tablet 3 01/30/20 24 Discontinued aspirin-acetamino phen-caffeine (EXCEDRIN MIGRAINE) 250-250-65 MG tablet Take 1 tablet by mouth daily as needed for headaches 01/30/20 24 Discontinued ibuprofen (ADVIL/MOTRIN) 200 MG tablet Take 200 mg by mouth every 4 hours as needed for pain 01/30/20 24 Discontinued Active Problems Problem Noted Date Diagnosed Date Coronary artery disease 04/03/2020 Essential hypertension 01/08/2017 Gastroesophageal reflux disease 01/08/2017 Iron deficiency anemia 01/08/2017 Obesity 01/08/2017 Obstructive sleep apnea syndrome 01/08/2017 Vitamin D deficiency 01/08/2017 Encounters Date Type Department Care Team Description 01/30/2024 12:45 PM CDT Office Visit [facility] [address] [place] [phone] Rahul Ford MD Coronary artery disease involving eklutna coronary artery of eklutna heart without angina pectoris; Benign essential hypertension; Palpitations 01/29/2024 8:45 AM CDT Lab [facility] Heart [facility] [address] [facility] [address] [place] [phone] Chadwick Jensen NP Coronary artery disease involving eklutna coronary artery of eklutna heart without angina pectoris; Benign essential hypertension; Palpitations 01/29/2024 Travel 01/25/2024 Travel 01/07/2024 External Order Results [facility] [address] [place] [address] Outside, Provider from Last 3 Months Immunizations Name Administration Dates Next Due COVID-19 [...] PHQ-2 Answer Date Recorded PHQ-2 Score 0 01/30/2024 Adolescent Education Answer Date Record ed Getting School Help Needed Not on file 05/26 Sex and Gender Information Value Date Recorded Sex Assigned at Female 04/22/2020 2:54 PM CDT Gender Identity Female 04/22/2020 2:54 PM CDT Sexual Orientation Straight 04/22/2020 2: 54 PM CDT Last Filed Vital Signs Vital Sign Reading Time Taken Comments Blood Pressure 106/82 01/30/2024 12:47 PM CDT Pulse 58 01/30/2024 12:47 PM CDT Temperature 36.3 ??C (97.3 ??F) 03/17/2023 1:00 PM CD T Respiratory Rate 14 03/14/2023 11:28 AM CDT Oxygen Saturation 96% 01/30/2024 12:47 PM CDT Inhaled Oxygen Concentration - - Weight 85.9 kg (189 lb 4.8 oz) 01/30/2024 12:47 PM CDT Height 160 cm (5' 3) 01/30/2024 12:47 PM CDT Body Mass Index 33.53 01/30/2024 12:47 PM CDT Plan of Treatment Upcoming Encounters Date Type Department Care Team (Latest Contact Info) Description 03/20/2024 7:30 AM CDT Hospital Encounter [facility] [address] [place] [phone] Kong Diop MD [facility] [address] [facility] [address] [place] [address] 03/20/2024 7:30 AM CDT - 03/20/2024 11:[address] [facility] [address] [place] [phone] Kong Diop MD [facility] [address] [facility] [address] [place] [address] LEFT TOTAL HIP ARTHROPLASTY DIRECT ANTERIOR APPROACH WITH ORTHOGRID Scheduled Procedures Name Priority Associated Diagnoses Date/Ti me ARTHROPLASTY, HIP, TOTAL, DIRECT ANTERIOR APPROACH, USING ORTHOGRID Degenerative joint disease of left hip 03/20/2024 7:30 AM CDT Health Maintenance Due Date Last Done Comments ADVANCE CARE PLANNING 1961 ANNUAL REVIEW OF HM ORDERS 1961 CT COLONOGRAPHY 1961 FIT 1961 FLEX SIG 1961 sDNA (Cologuard) 1961 Pneumococcal Vaccine: Pediatrics (0 to 5 Years) and At-Risk Patients (6 to 64 Years) (1 of 2 - PCV) 1967 COLONOSCOPY 1971 COLORECTAL CANCER SCREENING 1971 HIV SCREENING 1976 HEPATITIS C SCREENING 1979 YEARLY PREVENTIVE VISIT 01/17/2019 01/17/2018 RSV VACCINE ( & 60+) (1 - 1-dose 60+ series) 2021 MAMMO SCREENING 08/24/2022 08/24/2020, 08/04, 01/31/2018, Additional history exists COVID-19 Vaccine ( season) 2023 08/01/2021, 12/30/2020, 12/09/2020 LIPID 01/28/2025 01/29/2024, 02/02, 02/22/2022, Additional history exists PAP 06/15/2025 06/15/2022, 06/03, 04/23/2019 GLUCOSE 01/28/2027 01/29/2024, 02/02, 03/12/2022, Additional history exists DTAP/TDAP/TD IMMUNIZATION (3 - Td or Tdap) 04/23/2029 04/23/2019, 05/06/2009 ZOSTER IMMUNIZATION Completed 07/25/2020, INFLUENZA VACCINE Completed 06/28/2023, , 06/13/2022, Additional history exists PHQ-2 (once per calendar year) Completed 01/30/2024, 02/23/2023 HPV IMMUNIZATION Aged Out No longer e [...] Author MYC ECC SURG ENROLL [place] [facility] [place] [place] No Mariaa Garcia Procedures Procedure Name Priority Date/Time Associated Diagnosis Comments EKG 12-LEAD COMPLETE W/READ - CLINICS Routine 01/30/2024 Coronary artery disease involving eklutna coronary artery of eklutna heart without angina pectoris Benign essential hypertension Palpitations LIPID REFLEX TO DIRECT LDL PANEL Routine 01/29/2024 8:56 AM CDT Coronary artery disease involving ekl[place]na coronary artery of eklutna heart without angina pectoris Benign essential hypertension Palpitations BASIC METABOLIC PANEL Routine 01/29/2024 8:56 AM CDT Coronary artery disease involving ekl[place] coronary artery of eklutna heart without angina pectoris Benign essential hypertension Palpitations ERYTHROCYTE SEDIMENTATION RATE AUTO Routine 01/07/2024 2:50 PM CDT CRP INFLAMMATION Routine 01/07/2024 2:50 PM CDT TSH Routine 01/07/2024 2:50 PM CDT EKG CARDIAC - HIM SCAN 12:00 AM CDT XRAY IMAGING - HIM SCAN 01/07/2024 12:00 AM CDT MAMMOGRAM - HIM SCAN Routine 08/24/2020 from Last 3 Months or Most Recently Relevant to Health Maintenance Results * EKG 12-lead complete w/read - Clinics (performed today) (01/30/2024) Rahul Ford MD ECG ORDERAB LES * (ABNORMAL) Lipid panel reflex to direct LDL Fasting (01/29/2024 8:56 AM CDT) Cholesterol 155 <200 mg/dL 01/29/2024 1:40 PM CDT [facility] Triglycerides 197(H) <150 mg/dL 01/29/2024 1:40 PM CDT [facility] Direct Measure HDL 57 >=50 mg/dL 01/29/2024 1:40 PM CDT [facility] LDL Cholesterol Calculated 59 <=100 mg/dL 01/29/2024 1:40 PM CDT [facility] Non HDL Cholesterol 98 <130 mg/dL 01/29/2024 1:40 PM CDT [facility] Patient Fasting > 8hrs? Yes 01/29/2024 1:40 PM CDT [facility] Blood STRUCTURE OF LEFT UPPER LIMB / Unknown Venipuncture / Unknown 01/29/2024 8:56 AM CDT 01/29/2024 8:56 AM CDT Narrative [facility] - 01/29/2024 1:40 PM CDT Cholesterol Desirable: ??<200 mg/dL Triglycerides [...] ??Greater than or equal to 220 mg/dL Chadwick Jensen NP LAB - BLOOD ORDERABL ES LABORATORY [facility] [address] [facility] [address] [facility], [address] [place] [address], [facility] LABORATORY [facility] Acute Care Lab [address] [facility] Lab (1st floor, no room number) [place] [address] * Basic metabolic panel (01/29/2024 8:56 AM CDT) [facility] Sodium 141 135 - 145 mmol/L 01/29/2024 10:01 AM CDT LABORATORY Comment:Reference intervals for this test were updated on 05/29/2023 to more accurately reflect our healthy population. There may be differences in the flagging of prior results with similar values performed with this method. Interpretation of those prior results can be made in the context of the updated reference intervals. Potassium 4.1 3.4 - 5.3 mmol/L 01/29/2024 10:01 AM CDT LABORATORY Chloride 104 98 - 107 mmol/L 01/29/2024 10:01 AM CDT LABORATORY Carbon Dioxide (CO2) 23 22 - 29 mmol/L 01/29/2024 10:01 AM CDT LABORATORY Anion Gap 14 7 - 15 mmol/L 01/29/2024 10:01 AM CDT LABORATORY Urea Nitrogen 20.2 8.0 - 23.0 mg/dL 01/29/2024 10:01 AM CDT LABORATORY Creatinine 0.78 0.51 - 0.95 mg/dL 01/29/2024 10:01 AM CDT [facility] GFR Estimate 85 >60 mL/min/1. 73m2 01/29/2024 10:01 AM CDT [facility] Calcium 9.1 8.8 - 10.2 mg/dL 01/29/2024 10:01 AM CDT [facility] Glucose 93 70 - 99 mg/dL 01/29/2024 10:01 AM CDT [facility] Blood STRUCTURE OF LEFT UPPER LIMB / Unknown Venipuncture / Unknown 01/29/2024 8:56 AM CDT 01/29/2024 8:56 AM CDT Chadwick Jensen NP LAB - BLOOD ORDERABL ES LABORATORY [facility] Acute Care Lab [address] [facility] Lab (1st floor, no room number) [place] [address] * TSH (01/07/2024 2:50 PM CDT) TSH (External) 2.290 0.270 - 4.200 uIU/mL NON-INTERFACED (ONBASE SCANS) Blood BLOOD SPECIMEN / Unknown 01/07/2024 2:50 PM CDT Narrative [facility] - 01/25/2024 2:26 PM CDT Verified by Carmella Munroe on 01/25/2024. Provider Outside LAB - BLOOD ORDERABL ES [facility] PFT NON-INTERFACED (ONBASE SCANS) * Erythrocyte sedimentation rate auto (01/07/2024 2:50 PM CDT) ESR (External) 3 1 - 20 mm/Hr NON-INTERFACED (ONBASE SCANS) Blood BLOOD SPECIMEN / Unknown 01/07/2024 2:50 PM CDT Narrative [facility] - 01/25/2024 2:29 PM CDT Verified by Carmella Munroe on 01/25/2024. Provider Outside LAB - BLOOD ORDERABL ES [facility] PFT NON-INTERFACED (ONBASE SCANS) * (ABNORMAL) CRP inflammation (01/07/2024 2:50 PM CDT) CRP Inflammation (External) <0.5(L) 0.5 - 1.0 mg/dL NON-INTERFACE D (ONBASE SCANS) Blood BLOOD SPECIMEN / Unknown 01/07/2024 2:50 PM CDT Narrative [facility] - 01/07/2024 2:50 PM CDT Verified by Carmella Munroe on 01/25/2024. Provider Outside LAB - BLOOD ORDERABL ES Performing Organization Address [facility]/ZIP Co de Phone Number [facility] PFT NON-INTERFACED (ONBASE SCANS) * Xray Imaging - HIM Scan (01/07/2024 12:00 AM CDT) Anatomical Region Laterality Modality Other 01/07/2024 Provider Outside IMG DIAGNOSTIC IMAGI NG ORDERABLES * EKG Cardiac - HIM Scan (01/07/2024 12:00 AM CDT) 01/07/2024 Provider Outside ECG ORDERABLES * Mammogram - HIM Scan (08/24/2020) Negative Anatomical Region Laterality Modality Other Provider Outside IMG MAMMOGRAPHY ORDE RABLES from Last 3 Months or Most Recently Relevant to Health Maintenance Additional Health Concerns Active Problems Noted Date Diagnosed Date MyC ECC SURG ENROLL 11/16/2023 Care Teams Energy Conservation Representative Relationship Specialty Start Date End Date Yamila Dave PA-C [facility] [address] [place] [address] PCP - General Physician Cardiovascular Surgical Tech 04/14/20 Chadwick Jensen NP [address] [place] [address] Nurse Practitioner Cardiovascular Disease 11/15/22 Rahul Ford MD MD Cardiovascular Disease 01/24/24 Rahul Ford MD Assigned Heart and Vascular Provider 02/24/24
--- OUTSIDE RECORDS SUMMARY | 2024-02-25 14:15 | XMS_ITS | Referral Summary ---
Author Organization [place] Address [address] [place] [address] Care Team Providers Care Lead Mechanic Name Role Phone Tenzin Latishamaggie Mojica PA-C Primary Care Provider Chadwick Jensen NP Unavailable [phone] Rahul Ford MD Unavailable Un available Rahul Ford MD Unavailable Un available Encounters Date Type Department Care Team Description 01/30/2024 12:45 PM CDT Office Visit [address] [place] [address] Rahul Ford MD Coronary artery disease involving tonawanda coronary artery of [place] heart without angina pectoris; Benign essential hypertension; Palpitations 01/29/2024 Travel 01/29/2024 8:45 AM CDT Lab [address] [place] [phone] Chadwick Jensen NP Coronary artery disease involving ton[place] coronary artery of [place] heart without angina pectoris; Benign essential hypertension; Palpitations 01/25/2024 Travel 01/07/2024 External Order Results [facility] [address] [place] [address] Outside, Provider from Last 3 Months Allergies Active Allergy Reactions Criticality Noted Date [...] 40 MG tabletIndications :Coronary artery disease involving ton[place] coronary artery of tonawanda heart without angina pectoris,Palpitat ions Take 1 tablet (40 mg) by mouth daily 90 tablet 3 2 Active ASPIRIN LOW DOSE 81 MG EC tabletIndications :Coronary artery disease involving ton[place] coronary artery of tonawanda heart without angina pectoris Take 1 tablet (81 mg) by mouth daily 90 tablet 3 2 Active losartan (COZAAR) 100 MG tabletIndications :Benign essential hypertension Take 1 tablet (100 mg) by mouth daily 90 tablet 3 Active metoprolol tartrate (LOPRESSOR) 25 MG tabletIndications :Coronary artery disease involving tonaw[place] coronary artery of tonaw[place] heart without angina pectoris,Palpitat ions Take 1 [...] Description 03/20/2024 7:30 AM CDT [facility] [address] [place] [phone] Kong Diop MD [facility] [address] [place] [address] 03/20/2024 7:30 AM CDT - 03/20/2024 11:00 AM CDT Surgery [facility] [address] [place] [phone] Kong Diop MD [facility] [address] [place] [address] LEFT TOTAL HIP ARTHROPLASTY DIRECT ANTERIOR APPROACH [...] CLINICS Routine 01/30/2024 Coronary artery disease involving tonawanda coronary artery of ton[place] heart without angina pectoris Benign essential hypertension Palpitations LIPID REFLEX TO DIRECT LDL PANEL Routine 01/29/2024 8:56 AM CDT Coronary artery disease involving tonaw[place] coronary artery of tonaw[place] heart without angina pectoris Benign essential hypertension Palpitations BASIC METABOLIC PANEL Routine 01/29/2024 8:56 AM CDT Coronary artery disease involving tonaw[place] coronary artery of tonaw[place] heart without angina pectoris Benign essential hypertension [...] Jensen NP LAB - BLOOD ORDERABL ES U LABORATORY [facility] [place] [facility] [address] [facility] [address], [address] [place] [address] Acute Care Lab [address] [facility] Lab (1st floor, no room number) [place] [address] * Basic metabolic panel (01/29/2024 8:56 AM CDT) [facility] Sodium 141 135 - 145 mmol/L 01/29/2024 [...] - 0.95 mg/dL 01/29/2024 10:01 AM CDT LABORATORY GFR Estimate 85 >60 mL/min/1. 73m2 01/29/2024 10:01 AM CDT [facility] Calcium 9.1 8.8 - 10.2 mg/dL 01/29/2024 10:01 AM CDT [facility] Glucose 93 70 - 99 mg/dL 01/29/2024 10:01 AM CDT [facility] Blood STRUCTURE OF LEFT UPPER LIMB / Unknown Venipuncture / Unknown 01/29/2024 8:56 AM CDT 01/29/2024 8:56 AM CDT Chadwick Jensen LAB - BLOOD ORDERABL ES RH LABORATORY [facility] Acute Care Lab [address] [facility] Lab (1st floor, no room number) [place] [address] * TSH (01/07/2024 2:50 PM CDT) TSH (External) 2.290 0.270 - 4.200 uIU/mL NON-INTERFACED (ONBASE SCANS) Blood BLOOD SPECIMEN / Unknown 01/07/2024 2:50 PM CDT Narrative [facility] - 01/25/2024 2:26 PM CDT Verified by Carmella Munroe on 01/25/2024. Provider Outside LAB - BLOOD ORDERABL ES Performing Organization Address [facility]/ZIP Co de Phone Number [facility] PFT NON-INTERFACED (ONBASE SCANS) * Erythrocyte [...] / Unknown 01/07/2024 2:50 PM CDT Narrative [facility] - 01/07/2024 2:50 PM CDT Verified by Carmella Munroe on 01/25/2024. Provider Outside LAB - BLOOD ORDERABL ES ABELARDO PFT NON-INTERFACED (ONBASE SCANS) * Xray Imaging - HIM Scan (01/07/2024 12:00 AM CDT) Anatomical Region Laterality Modality Other 01/07/2024 Provider Outside IMG DIAGNOSTIC IMAGI NG ORDERABLES * EKG Cardiac - HIM Scan (01/07/2024 12:00 AM CDT) 01/07/2024 Provider Outside ECG ORDERABLES * Mammogram - HIM Scan (08/24/2020) Negative Anatomical Region Laterality Modality Other Provider Outside IMG MAMMOGRAPHY CECE ORTIZ from Last 3 Months or Most Recently Relevant to Health Maintenance Additional Health Concerns Active Problems Noted Date Diagnosed Date MyC ECC SURG ENROLL 11/16/2023 Care Teams Lead Mechanic Relationship Specialty Start Date End Date Yamila Dave PA-C [facility] [address] [place] [address] PCP - General Physician Sign Carpenter 04/14/20 Chadwick Jensen NP [address] [place] [address] Nurse Practitioner Cardiovascular Disease 11/15/22 Rahul Ford MD MD Cardiovascular Disease 01/24/24 Rahul Ford MD Assigned Heart and Vascular Provider 02/24/24
--- OUTSIDE RECORDS SUMMARY | 2024-02-25 14:16 | XMS_ITS | Encounter Summary ---
Author Organization [place] Address [facility] [facility] [place] [address] Care Team Providers Care Setter Up Name Role Phone Yamila Dave PA-C Primary Care Provider Chadwick Jensen NP Unavailable [phone] Chadwick Jensen NP Unavailable [phone] Rahul Ford MD Unavailable Un available Encounter Details Date Type Department Care Team (Late st Contact Info) Description 01/29/2024 8:45 AM CDT [facility] Heart [address] [place] [address] Chadwick Jensen NP [address] [facility] [place] [address] Coronary artery disease involving unga coronary artery of unga heart without angina pectoris; Benign essential hypertension; [...] Description 03/20/2024 7:30 AM CDT Hospital Encounter [facility] [address] [place] [phone] Kong Diop MD [facility] [address] [place] [address] 03/20/2024 7:30 AM CDT - 03/20/2024 11:00 AM CDT Surgery [facility] [address] [place] [phone] Kong Diop MD [facility] [address] [place] [address] LEFT TOTAL HIP ARTHROPLASTY DIRECT ANTERIOR APPROACH WITH ORTHOGRID Scheduled Procedures Name Priority Associated Diagnoses Date/Ti me ARTHROPLASTY, HIP, TOTAL, DIRECT ANTERIOR APPROACH, USING ORTHOGRID Degenerative joint disease of left hip 03/20/2024 7:30 AM CDT documented as of this encounter Goals Goal Patient Goal Type Associated Problems Recent Progress Patient-Stated? Author MYC ECC SURG ENROLL Care Plan MyC ECC SURG ENROLL Mariaa Xiong documented as of this encounter Procedures Procedure Name Priority Date/Time Associated Diagnosis Comments LIPID REFLEX TO DIRECT LDL PANEL Routine 01/29/2024 8:56 AM CDT Coronary artery disease involving unga coronary artery of unga heart without angina pectoris Benign essential hypertension Palpitations BASIC METABOLIC PANEL Routine 01/29/2024 8:56 AM CDT Coronary artery disease involving unga coronary artery of unga heart without angina pectoris Benign essential hypertension Palpitations documented in this encounter Results * (ABNORMAL) Lipid panel reflex to direct LDL Fasting (01/29/2024 8:56 AM CDT) [facility] Cholesterol 155 <200 mg/dL 01/29/2024 1:40 PM [...] Jensen NP LAB - BLOOD ORDERABL ES [facility] Core Lab [address] [facility] [address] [facility], [address] [place] [address], [place] RH LABORATORY [facility] Acute Care Lab [address] Lab (1st floor, no room number) [place] [address], [facility] * Basic metabolic panel (01/29/2024 8:56 AM CDT) Sodium 141 135 - 145 mmol/L 01/29/2024 [...] >60 mL/min/1. 73m2 01/29/2024 10:01 AM CDT LABORATORY Calcium 9.1 8.8 - 10.2 mg/dL 01/29/2024 10:01 AM CDT LABORATORY Glucose 93 70 - 99 mg/dL 01/29/2024 10:01 AM CDT LABORATORY Blood STRUCTURE OF LEFT UPPER LIMB / Unknown Venipuncture / Unknown 01/29/2024 8:56 AM CDT 01/29/2024 8:56 AM CDT Chadwick Jensen NP LAB - BLOOD ORDERABL ES LABORATORY [facility] Acute Care Lab [address] [facility] Lab (1st floor, no room number) [place] [address], [facility] documented in this encounter Visit Diagnoses Diagnosis Coronary artery disease involving unga coronary artery of unga heart without angina pectoris Benign essential hypertension Essential hypertension, benign Palpitations Degenerative joint disease of left hip documented in this encounter Additional Health Concerns Active Problems Noted Date Diagnosed Date MyC ECC SURG ENROLL 11/16/2023 documented as of this encounter Care Teams Setter Up Relationship Specialty Start Date End Date Yamila Dave PA-C [facility] [address] [place] [address] PCP - General Physician Unindentured Apprentice 04/14/20 Chadwick Jensen NP [address] [id number] Nurse Practitioner Cardiovascular Disease 11/15/22 Chadwick Jensen NP [address] [id number] Assigned Heart and Vascular Provider 08/25/23 02/23/24 Rahul Ford MD Cardiovascular Disease 01/24/24 documented as of this encounter
--- OUTSIDE RECORDS SUMMARY | 2024-02-25 14:16 | XMS_ITS | Encounter Summary ---
Author Organization [place] Address [facility] [place] [address] Care Team Providers Care Sock Knitter Name Role Phone SanamYamila pedraza Galina YOST Primary Care Provider Alo Steel PA-C Unavailable [phone] Rahul Ford MD Unavailable Un available Chadwick Jensen ORTHOTIC AIDE Unavailable [phone] PatnoChadwick stewart ORTHOTIC AIDE Unavailable [phone] Patnopat, Chadwick ORTHOTIC AIDE Unavailable [phone] Rahul Ford MD Unavailable Un available Rahul Ford MD Unavailable Un available Rahul Ford MD Unavailable Un available Encounter [...] 03/20/2024 7:30 AM CDT [facility] [address] [place] [phone] Kong Diop MD [facility] [address] [facility] [address] [place] [address] 03/20/2024 7:30 AM CDT - 03/20/2024 11:[address] [address] [place] [phone] Kong Diop MD [facility] [address] [facility] [address] [place] [address] LEFT TOTAL HIP ARTHROPLASTY DIRECT ANTERIOR APPROACH WITH ORTHOGRID Scheduled Procedures Name Priority Associated Diagnoses Date/Ti me ARTHROPLASTY, HIP, TOTAL, DIRECT ANTERIOR APPROACH, USING ORTHOGRID Degenerative joint disease of left hip 03/20/2024 7:30 AM CDT documented as of this encounter Visit Diagnoses Not on filedocumented in this encounter Care Teams Sock Knitter Relationship Specialty Start Date End Date Yamila Dave PA-C [facility] [address] [place] [address] PCP - General Physician Paper Cutter Operator 04/14/20 Alo Steel PA-C [address] [address] Assigned Heart and Vascular Provider 11/17/20 01/22/21 Rahul Ford MD [address] [address] Assigned Heart and Vascular Provider 01/23/21 03/02/23 Chadwick Jensen NP [address] [address] Nurse Practitioner Cardiovascular Disease 11/15/22 Chadwick Jensen NP [address] [place] [address] Assigned Heart and Vascular Provider 03/03/23 08/17/23 Chadwick Jensen NP [address] [place] [address] Assigned Heart and Vascular Provider 08/25/23 02/23/24 Rahul Ford MD Assigned Heart and Vascular Provider 08/18/23 08/24/23 Rahul Ford MD MD Cardiovascular Disease 01/24/24 Rahul Ford MD Assigned Heart and Vascular Provider 02/24/24 documented as of this encounter
--- OUTSIDE RECORDS SUMMARY | 2024-02-25 14:16 | XMS_ITS | Encounter Summary ---
Author Organization [place] Address [address] [facility] [place] [address] Care Team Providers Care Collector Name Role Phone Tenzin Latishamaggie Mojica PA-C Primary Care Provider Chadwick Jensen NP Unavailable [phone] Chadwick Jensen NP Unavailable [phone] Rahul Ford MD Unavailable Un available Encounter Details Date Type Department Care Team (Latest Contact Info) Description 01/25/2024 Travel Social History Tobacco Use Types Packs/Day [...] Description 03/20/2024 7:30 AM CDT Hospital Encounter [facility] [address] [place] [phone] Kong Diop MD [facility] [address] [place] [address] [place] [address] 03/20/2024 7:30 AM CDT - 03/20/2024 11:00 AM CDT Surgery [facility] [address] [place] [address] Kong Diop MD [facility] [address] [place] [address] [place] [address] LEFT TOTAL HIP ARTHROPLASTY DIRECT ANTERIOR APPROACH [...] MyC ECC SURG ENROLL No Mariaa Garcia documented as of this encounter Visit Diagnoses Not on filedocumented in this encounter Additional Health Concerns Active Problems Noted Date Diagnosed Date 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
--- OUTSIDE RECORDS SUMMARY | 2024-02-25 14:16 | XMS_ITS | Encounter Summary ---
Author Organization [place] Address [address] [facility] [place] [address] Care Team Providers Care Certified Personal Finance Counselor Name Role Phone Yamila Dave PA-C Primary Care Provider Rahul Ford MD Unavailable Un available Chadwick Jensen ACETALDEHYDE CONVERTER OPERATOR Unavailable [phone] Chadwick Jensen ACETALDEHYDE CONVERTER OPERATOR Unavailable [phone] Chadwick Jensen ACETALDEHYDE CONVERTER OPERATOR Unavailable [phone] Rahul Ford MD Unavailable Un available Rahlu Ford MD Unavailable Un available Rahul Ford MD Unavailable Un available Encounter Details Date Type Department Care Team (Late st Contact Info) Description 04/19/2022 External Order Results [facility] [address] [place] [address] Outside, Provider Social History Tobacco Use Types [...] 03/20/2024 7:30 AM CDT Hospital Encounter [facility] Services [address] [place] [phone] Kong Diop MD [facility] [address] [place] [address] [place] [address] 03/20/2024 7:30 AM CDT - 03/20/2024 11:00 AM CDT Surgery [facility] [address] [place] [phone] Kong Diop MD [facility] [address] [place] [address] [place] [address] LEFT TOTAL HIP ARTHROPLASTY DIRECT ANTERIOR APPROACH [...] Blood 04/19/2022 12:0 0 PM CDT Narrative SANDHYAE PFT - 04/20/2022 2:32 PM CDT Verified by Joshua Delacruz on 04/20/2022. Provider Outside LAB - BLOOD ORDERABL ES Performing Organization Address [facility] Co de Phone Number ABELARDO PFT NON-INTERFACED (ONBASE SCANS) * Basic metabolic [...] on filedocumented in this encounter Care Teams Certified Personal Finance Counselor Relationship Specialty Start Date End Date Yamila Dave PA-C [facility] [address], [place] [address] PCP - General Physician Plsql Developer 04/14/20 Rahul Ford MD [facility] [address] [place] [address] Assigned Heart and Vascular Provider 01/23/21 03/02/23 Chadwick Jensen NP [address] [address] Nurse Practitioner Cardiovascular Disease 11/15/22 Chadwick Jensen NP [address] [address] Assigned Heart and Vascular Provider 03/03/23 08/17/23 Chadwick Jensen NP [address] [address] Assigned Heart and Vascular Provider 08/25/23 02/23/24 Rahul Ford MD Assigned Heart and Vascular Provider 08/18/23 08/24/23 Rahul Ford MD MD Cardiovascular Disease 01/24/24 Rahul Ford MD Assigned Heart and Vascular Provider 02/24/24 documented as of this encounter
--- OUTSIDE RECORDS SUMMARY | 2024-02-25 14:16 | XMS_ITS | Encounter Summary ---
Author Organization [place] Address [address] [place] [address] Care Team Providers Care Die Hardener Name Role Phone Tenzin Latishamaggie Mojica PA-C Primary Care Provider Chadwick Jensen NP Unavailable [phone] Chadwick Jensen NP Unavailable [phone] Rahul Ford MD Unavailable Un available Encounter Details Date Type Department Care Team (Latest Contact Info) Description 01/29/2024 Travel Social History Tobacco Use Types Packs/Day [...] 03/20/2024 7:30 AM CDT Hospital Encounter [facility] Services [address] [place] [address] , [address] [place] [phone] Kong Diop MD [facility] [address] [place] [address] [place] [address] 03/20/2024 7:30 AM CDT - 03/20/2024 11:[address] [facility] [address] [place] [address] Kong Diop MD [facility] [address] [place] [address] [place] [address] LEFT TOTAL HIP ARTHROPLASTY DIRECT ANTERIOR APPROACH [...] documented as of this encounter Care Teams Die Hardener Relationship Specialty Start Date End Date Yamila Dave PA-C [facility] [address] [place] [address] PCP - General Physician Preschool Associate Teacher 04/14/20 Chadwick Jensen NP [address] [address] Nurse Practitioner Cardiovascular Disease 11/15/22 Chadwick Jensen NP [address] [address] Assigned Heart and Vascular Provider 08/25/23 02/23/24 Rahul Ford MD Cardiovascular Disease 01/24/24 documented as of this encounter
--- OUTSIDE RECORDS SUMMARY | 2024-02-25 14:16 | XMS_ITS | Clinical Summary ---
Author Organization [facility] Address [place], [place] [address] Care Team Providers Care Group Leader Semiconductor Processing Name Role Phone Yamila Dave PA-C Primary Care Provider [phone] Allergies Active Allergy Reactions Criticality Noted Date [...] in 24 hrs. 6 Tablet 11/19/2020 Active Encounters Date Type Department Care Team Description 01/29/2024 Orders Only [facility] [address] [place] [address] Dilma Hanh Noe scan: (1-Ord) Zio Final Report from Last 3 Months Social History Tobacco Use Types Packs/Day Years [...] Procedure Name Priority Date/Time Associated Diagnosis Comments EXTENDED HOLTER Routine 01/29/2024 Tachycardia, unspecified HPV THIN PREP Routine 06/15/2022 9:45 AM CDT Encounter for screening for malignant neoplasm of cervix from Last 3 Months or Most Recently Relevant to Health Maintenance Results * EXTENDED HOLTER (01/29/2024) Yamila Dave PA-C CARDIAC SERVICES ORD * HPV HIGH RISK (06/15/2022 9:45 AM CDT) TYPE 16 Negative Negative 06/21/2022 9:30 AM CDT [facility] TRAL LABORATORY TYPE 18 Negative Negative 06/21/2022 9:30 AM CDT [facility] TR[facility] LAB[facility] OTHER HIGH RISK TYPES Negative Negative 06/21/2022 9:30 AM CDT [facility] TR[facility] Other (Cervical/Vagina l) 06/15/2022 9:45 AM CDT 06/16/2022 8:28 AM CDT Narrative [facility] - 06/21/2022 9:30 AM CDT HPV types 16, 18, 31, 33, 35, 39, 45, 51, 52, 56, 58, 59, 66 and 68 DNA were undetectable or below the pre-set threshold. Methodology: Jamie Cristina 4800 HPV Test Yamila Dave PA-C [facility]CRO[facility] evOLED LABORATORY-CENTRAL LABORATORY [address] [place] [address], from Last 3 Months or Most Recently Relevant to Health Maintenance Advance Directives * Full Code (Latest Code Status on File) Date Activated Date Inactivated Comments 11/19/2020 5:56 AM 11/19/2020 1:25 PM Question Answer Comments Code Status Discussion: Not Discussed Care Teams Group Leader Semiconductor Processing Relationship Specialty Start Date End Date Yamila Dave PA-C [address] [place] [address] PCP - General Emergency Medicine 11/05/20
--- OUTSIDE RECORDS SUMMARY | 2024-02-25 14:16 | XMS_ITS | Encounter Summary ---
Author Organization [place] Address [facility] [place] [address] Care Team Providers Care Dog Boarder Name Role Phone SanamEvangelista pedrazamaggie Mojica PA-C Primary Care Provider Rahul Ford MD Unavailable Un available Alo Steel PA-C Unavailable [phone] Rahul Ford MD Unavailable Un available Chadwick Jensen CAPACITOR ASSEMBLER Unavailable [phone] PatnoChadwick stewart CAPACITOR ASSEMBLER Unavailable [phone] PatnoChadwick stewart CAPACITOR ASSEMBLER Unavailable [phone] Rahul Ford MD Unavailable Un available Rahul Ford MD Unavailable Un available Rahul Ford MD Unavailable Un available Encounter Details Date Type Department Care Team (Late st Contact Info) Description 09/23/2020 [facility] Heart [address] [address] Rahul Ford MD Social History [...] COVID-19? No / Unsure 09/20/2020 7:44 AM CANCER PROGRAM DIRECTOR documented as of this encounter Plan of Treatment Upcoming Encounters Date Type Department Care Team (Latest Contact Info) Description 03/20/2024 7:30 AM CDT Hospital Encounter [facility] Services [address] [place] [phone] Kong Diop MD [facility] [address] [address] 03/20/2024 7:30 AM CDT - 03/20/2024 11:[address] [facility] [address] [place] [address] Kong Diop MD [facility] [address] [address] LEFT TOTAL HIP ARTHROPLASTY DIRECT ANTERIOR APPROACH WITH ORTHOGRID Scheduled Procedures Name Priority Associated Diagnoses Date/Ti me ARTHROPLASTY, HIP, TOTAL, DIRECT ANTERIOR APPROACH, USING ORTHOGRID Degenerative joint disease of left hip 03/20/2024 7:30 AM CDT documented as of this encounter Visit Diagnoses Not on filedocumented in this encounter Care Teams Dog Boarder Relationship Specialty Start Date End Date Yamila Dave PA-C [facility] [address] [place] [address] PCP - General Physician Portable Track Line Marker 04/14/20 Rahul Ford MD Assigned Heart and Vascular Provider 06/25/20 11/16/20 Alo Steel PA-C [address] [facility] [place] [address] Assigned Heart and Vascular Provider 11/17/20 01/22/21 Rahul Ford MD [address] [place] [address] Assigned Heart and Vascular Provider 01/23/21 03/02/23 Chadwick Jensen NP [address] [place] [address] Nurse Practitioner Cardiovascular Disease 11/15/22 Chadwick Jensen NP [address] [place] [address] Assigned Heart and Vascular Provider 03/03/23 08/17/23 Chadwick Jensen NP [address] [place] [address] Assigned Heart and Vascular Provider 08/25/23 02/23/24 Rahul Ford MD Assigned Heart and Vascular Provider 08/18/23 08/24/23 Rahul Ford MD MD Cardiovascular Disease 01/24/24 Rahul Ford MD Assigned Heart and Vascular Provider 02/24/24 documented as of this encounter
--- OUTSIDE RECORDS SUMMARY | 2024-02-25 14:16 | XMS_ITS | Encounter Summary ---
Author Organization [place] Address [address] [facility] [place] [address] Care Team Providers Care Automotive Sales Specialist Name Role Phone SanamYamila pedraza Galina YOST Primary Care Provider Alo Steel PA-C Unavailable [phone] Rahul Ford MD Unavailable Un available Chadwick Jensen TESTER ARMATURE OR FIELDS Unavailable [phone] Chadwick Jensen TESTER ARMATURE OR FIELDS Unavailable [phone] Chadwick Jensen TESTER ARMATURE OR FIELDS Unavailable [phone] Rahul Ford MD Unavailable Un available Rahul [...] Description 03/20/2024 7:30 AM CDT Hospital Encounter [facility] Services [address] [place] [address] Kong Diop MD [facility] [address] [place] [address] 03/20/2024 7:30 AM CDT - 03/20/2024 11:00 AM CDT Surgery [facility] Services [address] [place] [phone] Kong Diop MD [facility] [address] [place] [address] LEFT TOTAL HIP ARTHROPLASTY DIRECT ANTERIOR APPROACH WITH ORTHOGRID Scheduled Procedures Name Priority Associated Diagnoses Date/Ti me ARTHROPLASTY, HIP, TOTAL, DIRECT ANTERIOR APPROACH, USING ORTHOGRID Degenerative joint disease of left hip 03/20/2024 7:30 AM CDT documented as of this encounter Visit Diagnoses Not on filedocumented in this encounter Care Teams Automotive Sales Specialist Relationship Specialty Start Date End Date Yamila Dave PA-C [facility] [address] [place] [address] PCP - General Physician Bread Wrapper Operator 04/14/20 Alo Steel PA-C [address] [place] [address] Assigned Heart and Vascular Provider 11/17/20 01/22/21 Rahul Ford MD [address] [address] Assigned Heart and Vascular Provider 01/23/21 03/02/23 Chadwick Jensen NP [address] [address] Nurse Practitioner Cardiovascular Disease 11/15/22 Chadwick Jensen NP [address] [address] Assigned Heart and Vascular Provider 03/03/23 08/17/23 Chadwick Jensen NP [address] [place] [address] Assigned Heart and Vascular Provider 08/25/23 02/23/24 Rahul Ford MD Assigned Heart and Vascular Provider 08/18/23 08/24/23 Rahul Ford MD MD Cardiovascular Disease 01/24/24 Rahul Ford MD Assigned Heart and Vascular Provider 02/24/24 documented as of this encounter
--- OUTSIDE RECORDS SUMMARY | 2024-02-25 14:16 | XMS_ITS | Encounter Summary ---
Author Organization [place] Address [address] [facility] [place] [address] Care Team Providers Care Physical Therapy Aide Name Role Phone Yamila Dave PA-C Primary Care Provider Chadwick Jensen NP Unavailable [phone] Chadwick Jensen NP Unavailable [phone] Rahul Ford MD Unavailable Un available Rahul Ford MD Unavailable Un available Encounter Details Date Type Department Care Team (Late st Contact Info) Description 01/07/2024 External Order Results [facility] [address] [place] [address] Outside, Provider Social History Tobacco Use Types [...] Description 03/20/2024 7:30 AM CDT Hospital Encounter [facility] [address] [place] [phone] Kong Diop MD [facility] [address] [place] [address] 03/20/2024 7:30 AM CDT - 03/20/2024 11:00 AM CDT Surgery [facility] [address] [place] [phone] Kong Diop MD [facility] [address] [place] [address] LEFT TOTAL HIP ARTHROPLASTY DIRECT ANTERIOR APPROACH [...] Procedure Name Priority Date/Time Associated Diagnosis Comments TSH Routine 01/07/2024 2:50 PM CDT ERYTHROCYTE SEDIMENTATION RATE AUTO Routine 01/07/2024 2:50 PM CDT CRP INFLAMMATION Routine 01/07/2024 2:50 PM CDT documented in this encounter Results * Erythrocyte sedimentation rate auto (01/07/2024 2:50 PM CDT) ESR (External) 3 1 - 20 mm/Hr NON-INTERFACED (ONBASE SCANS) Blood BLOOD SPECIMEN / Unknown 01/07/2024 2:50 PM CDT Nisha ZHOU PFT - 01/25/2024 2:29 PM CDT Verified [...] - BLOOD ORDERABL ES Performing Organization Address [facility] Co de Phone Number BREEZE PFT NON-INTERFACED (ONBASE SCANS) * TSH (01/07/2024 2:50 PM CDT) TSH (External) 2.290 0.270 - 4.200 uIU/mL NON-INTERFACED (ONBASE SCANS) Blood BLOOD SPECIMEN / Unknown 01/07/2024 2:50 PM CDT Narrative BREEZE PFT - 01/25/2024 2:26 PM CDT Verified by Carmella Munroe on 01/25/2024. 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
--- OUTSIDE RECORDS SUMMARY | 2024-02-25 14:16 | XMS_ITS | Encounter Summary ---
Author Organization [facility] Address [address] [facility] [place] [address] Care Team Providers Care Floral Manager Name Role Phone SanamYamila pedraza Galina YOST Primary Care Provider Chadwick Jensen NP Unavailable [phone] Chadwick Jensen NP Unavailable [phone] Rahul Ford MD Unavailable Un available Reason for Referral * Consultation (Routine: Next available opening) - Pending Review Specialty Diagnoses / Procedures Referred By Contac t Referred To Contact Cardiovascular Disease Diagnoses Coronary artery disease involving [place] coronary artery of [place] heart without angina pectoris Rahul Ford MD Referral ID Status Reason Start Date Expiration Date V isits Requested Visits Authorized [id number] Pending Review 01/30/2024 01/29/2025 1 1 Question Answer Preferred Location: [facility] Follow-up with: CON - [place] Scheduling Instructions: [employer] [facility] will call you to coordinate your care as prescribed by your provider. If you have concerns about scheduling, please call [phone]. Comments [employer] [facility] will call you to coordinate your care as prescribed by your provider. If you have concerns about scheduling, please call [phone]. Reason for Visit * Reason Comments Annual Visit Coronary Artery Disease * Consultation (Routine) - Closed Specialty Diagnoses / Procedures Referred By Contac t Referred To Contact Cardiovascular Disease Diagnoses Coronary artery disease involving [place] coronary artery of [place] heart without angina pectoris Benign essential hypertension Palpitations Chadwick Jensen NP [address] [id number] Referral ID Status Reason Start Date Expiration Date Visits Re quested Visits Authorized [id number] Closed 02/23/2023 02/23/2024 1 1 Encounter Details Date Type Department Care Team (Late st Contact Info) Description 01/30/2024 12:45 PM CDT Office Visit [address] [place] [id number] Rahul Ford MD Coronary artery disease involving [place] coronary artery of [place] heart without angina pectoris; Benign essential hypertension; [...] Pulse 58 01/30/2024 12:47 PM CDT Temperature - - Respiratory Rate - - Oxygen Saturation 96% 01/30/2024 12:47 PM CDT Inhaled Oxygen Concentration - - Weight 85.9 kg (189 lb 4.8 oz) 01/30/2024 12:47 PM CDT Height 160 cm (5' 3) 01/30/2024 12:47 PM CDT Body Mass Index 33.53 01/30/2024 12:47 PM CDT documented in this encounter Patient Instructions * Patient Instructions* Rahul Ford MD - 01/30/2024 12:45 PM CDT To speak to one of our cardiology nurses, call [phone]. To call to schedule any cardiology appointments call [phone]. documented in this encounter Progress Notes * Rahul Ford MD - 01/30/2024 12:45 PM CDT CARDIOLOGY VISIT REASON FOR VISIT: CAD SUBJECTIVE: 63-year-old female seen for CAD. She has hypertension, dyslipidemia, and psoriatic arthritis on methotrexate. 2019 she was admitted to [facility] in [place], [place] with non-STEMI. Echo showedEF 55% with no wall motion abnormality and no valve disease. Angiogram showed severe stenosis of a small OM3 branch, mild disease elsewhere, this was treated medically. Nuclear stress September 2020 showed small infarct of the distal anterior and apical segment, EF 70%. 30-day event monitor October 2020 showed sinus rhythm, no arrhythmias. Overall she has been doing well. She had a few episodes of palpitations lasting up to 2 hours recently. Heart rate was 100 on her Apple watch, she did not check the EKG. She just wore a 2-week Zio monitor ordered by her primary physician, results are not available yet. She denies any exertional chest pain or shortness of breath. MEDICATIONS: Current Outpatient Medications Medication Sig Dispense Refill ASPIRIN LOW DOSE 81 MG EC tablet Take 1 tablet (81 mg) by mouth daily 90 tablet 3 pcpxuqj-qymfdjomtqyjt-fzflekur (EXCEDRIN MIGRAINE) 250-250-65 MG tablet Take 1 tablet by mouth daily as needed for headaches atorvastatin (LIPITOR) 40 MG tablet Take 1 tablet (40 mg) by mouth daily 90 tablet 3 citalopram (CELEXA) 20 MG tablet Take 20 mg by mouth daily cyclobenzaprine (FLEXERIL) 10 MG tablet Take 1 tablet (10 mg) by mouth 3 times daily as needed for muscle spasms 30 tablet 0 Doxylamine Succinate, Sleep, (SLEEP AID PO) Take by mouth as needed (Patient not taking: Reported on 02/13/2023) folic acid (FOLVITE) 1 MG tablet Take 1 mg by mouth daily golimumab (SIMPONI) 50 MG/0.5ML auto-injector pen Simponi 50 mg/0.5 mL subcutaneous pen injector ibuprofen (ADVIL/MOTRIN) 200 MG tablet Take 200 mg by mouth every 4 hours as needed for pain ketorolac (TORADOL) 10 MG tablet Take 1 tablet (10 mg) by mouth every 6 hours as needed for pain Take as sparingly as possible. Avoid taking any other NSAIDS while using this medication. (Patient nottaking: Reported on 02/22/2022) 10 tablet 0 losartan (COZAAR) 100 MG tablet Take 1 tablet (100 mg) by mouth daily 90 tablet 0 methotrexate 2.5 MG tablet 15 mg every 7 days metoprolol tartrate (LOPRESSOR) 25 MG tablet Take 1 tablet (25 mg) by mouth 2 times daily 180 tablet 0 Multiple Vitamin (MULTI-VITAMINS) TABS Take by mouth daily omeprazole (PRILOSEC) [address] capsule omeprazole 20 mg capsule,delayed release Vitamin D3 (CHOLECALCIFEROL) 25 mcg (1000 units) tablet Take 2,000 Units by mouth (Patient not taking: Reported on 02/13/2023) No current facility-administered medications for this visit. ALLERGIES: Allergies Allergen Reactions Bupropion Hives Paroxetine Rash Sertraline Rash Sulfa Antibiotics Rash REVIEW OF SYSTEMS: Constitutional: No weight [...] hives, eczema or rhinitis. PHYSICAL EXAM: BP 106/82 (BP Location: Right arm, Patient Position: Sitting, Cuff Size: Adult Large) Pulse 58 Ht 1.6 m (5' 3) Wt 85.9 kg (189 lb 4.8 oz) LMP (LMP Unknown) SpO2 96% BMI 33.53 kg/m?? Constitutional: awake, alert, no distress Eyes: PERRL, sclera nonicteric ENT: trachea midline Respiratory: lungs clear Cardiovascular: Regular rate and rhythm, no murmurs GI: nondistended, nontender, bowel sounds present Lymph/Hematologic: no lymphadenopathy Skin: dry, no rash Musculoskeletal: good muscle tone, strength 5/5 in upper and lower extremities Neurologic: no focal deficits Neuropsychiatric: appropriate affact DATA: Lab: January 2024: Potassium 4.1, creatinine 0.8 Recent Labs Lab Test 01/29/24 0856 02/23/23 0903 CHOL 155 129 HDL 57 57 LDL 59 53 TRIG 197* 96 EKG, January 2024: Sinus rhythm, rate 51 ASSESSMENT: 63-year-old female seen for CAD. She is doing well. She had some recent palpitations, Zio monitor is pending. If she has future symptoms, she was encouraged to try to record these on her Apple Watch with an EKG. Otherwise she has no concerning chest pain, lipids and blood pressure are well-controlled. She is having hip surgery in March. She is low cardiac risk for any cardiac complications. RECOMMENDATIONS: 1. CAD -Continue current medications 2. Palpitations - try to record symptoms with EKG on Apple watch Follow-up in 1 year with CON. Rahul Ford MD Cardiology - [facility] Heart Pager: [phone] Text Page January 30, 2024 documented in this encounter Plan of Treatment Upcoming Encounters Date Type Department Care Team (Latest Contact Info) Description 03/20/2024 7:30 AM CDT Hospital Encounter [facility] [address] [place] [phone] Kong Diop MD [facility] [address] [place] [address] 03/20/2024 7:30 AM CDT - 03/20/2024 11:[address] [facility] [address] [place] [id number] Kong Diop MD [facility] [address] [place] [address] LEFT TOTAL HIP ARTHROPLASTY DIRECT ANTERIOR APPROACH WITH ORTHOGRID Scheduled Orders Name Type Priority Associated Diagnoses Orde r Schedule Lipid panel reflex to direct LDL Fasting Lab Routine Coronary artery disease involving [place] coronary artery of [place] heart without angina pectoris Expected: 01/29/2025 (Approximate), Expires: 01/29/2025 Scheduled Procedures Name Priority Associated Diagnoses Date/Ti me ARTHROPLASTY, HIP, TOTAL, DIRECT ANTERIOR APPROACH, USING ORTHOGRID Degenerative joint disease of left hip 03/20/2024 7:30 AM CDT Scheduled Referrals Name Type Priority Associated Diagnoses Orde r Schedule Follow-Up with Cardiology CON Referral Routine: Next available opening Coronary artery disease involving [place] coronary artery of [place] heart without angina pectoris Expected: 01/29/2025 (Approximate), Expires: 01/29/2025 documented as of this encounter Goals Goal Patient Goal Type Associated Problems Recent Progress Patient-Stated? Author MYC ECC SURG ENROLL Care Plan MyC ECC SURG ENROLL Mariaa Xiong documented as of this encounter Procedures Procedure Name Priority Date/Time Associated Diagnosis Comments EKG 12-LEAD COMPLETE W/READ - CLINICS Routine 01/30/2024 Coronary artery disease involving [place] coronary artery of [place] heart without angina pectoris Benign essential hypertension Palpitations documented in this encounter Results * EKG 12-lead complete w/read - Clinics (performed today) (01/30/2024) Rahul Ford MD ECG ORDERAB LES documented in this encounter Visit Diagnoses Diagnosis Coronary artery disease involving [place] coronary artery of [place] heart without angina pectoris Benign essential hypertension Essential hypertension, benign Palpitations Degenerative joint disease of left hip documented in this encounter Additional Health Concerns Active Problems Noted Date Diagnosed Date MyC ECC SURG ENROLL 11/16/2023 documented as of this encounter Care Teams Floral Manager Relationship Specialty Start Date End Date Yamila Dave PA-C [facility][NOTE 3] [address] [place] [address] PCP - General Physician Environmental Projects Advisor 04/14/20 Chadwick Jensen NP [address] [address] Nurse Practitioner Cardiovascular Disease 11/15/22 Chadwick Jensen NP [address] [id number] Assigned Heart and Vascular Provider 08/25/23 02/23/24 Rahul Ford MD Cardiovascular Disease 01/24/24 documented as of this encounter
[2024-02-25 16:35] LABS: Basophils Percent Auto 0.9 % (0.0-3.0); Eosinophils Percent Auto 2.5 % (0.0-7.0); Hematocrit 42.1 % (33.0-51.0); Hemoglobin* 13.7 gm/dL (12.0-16.0); Immature Granulocytes Pct Auto 0.9 %; Lymphocytes Percent Auto 20.9 % (20-44); Mean Corpuscular HGB Conc 33 gm/dL (32-36); Mean Corpuscular Hemoglobin 28 pg (26-34); Mean Corpuscular Volume 86 fL (80-100); Monocytes Percent Auto 12.5 % (0.0-11.0); Neutrophils Percent Auto 62.3 % (42.0-72.0); Platelet Count* 181 K/uL (140-440); RDW Coefficient of Variation % 13.2 % (11.5-15.5)
[2024-02-25 16:38] LABS: Slide Review Reflex No
[2024-02-25 16:41] LABS: Albumin* 4.6 g/dL (3.3-5.0)
[2024-02-25 16:44] LABS: Aspartate Amino Transferase* 45 U/L (12-35); Creatinine* 0.6 mg/dL (0.5-1.5); Estimated Glomerular Filt Rate 101 ml/min
[2024-02-25 16:45] LABS: Alanine Aminotransferase* 64 U/L (4-35)
[2024-02-25 16:51] LABS: C Reactive Protein* < 0.5 mg/dL (0.5-1.0)
[2024-02-25 17:49] LABS: Erythrocyte SedimentationRate* 6 mm/hr (2-20)
== END 2024-02-25 13:57 | disposition home or self-care (01) ==
LOC: NPINS 13:56
PROVIDERS: PCP Physician Assistant Medical; Visit Provider Internal Medicine Rheumatology
DX: L40.50 Arthropathic psoriasis, unspecified (principal); Z79.899 Other long term (current) drug therapy
CPT/HCPCS: 82040; 82565; 84450; 84460; 85025; 85651; 86140

== ENCOUNTER 2024-03-27 15:37 | Outpatient (CLI) | payer BC, SELFPAY ==
--- OUTSIDE RECORDS SUMMARY | 2024-03-27 15:41 | XMS_ITS | Encounter Summary ---
Author Organization [facility] Address [address] [facility] [place] [address] Care Team Providers Care Defective Cigarette Slitter Name Role Phone Yamila Dave PA-C Primary Care Provider Chadwick Jensen NP Unavailable [phone] Rahul Ford MD Unavailable Un available Rahul Ford MD Unavailable Un available Reason for Visit * Auth/Cert (Routine) Specialty Diagnoses / Procedures Referred By Contac t Referred To Contact Surgery Diagnoses Degenerative joint disease of left hip Degenerative joint disease of left hip [M16.12] Procedures HI TOTAL HIP ARTHROPLASTY LEFT TOTAL HIP ARTHROPLASTY DIRECT ANTERIOR APPROACH WITH ORTHOGRID Sh Periop Services [address] [place] [address] Referral ID Status Reason Start Date Expiration Date Visits Re quested Visits Authorized [id number] 1 1 Encounter Details Date Type Department Care Team (Latest Contact Info) Description 03/20/2024 5:29 AM CDT - 03/21/2024 1:10 PM CDT Hospital Encounter [facility] Orthoped[facility] [address] [place] [address] Kai Diop MD [facility] ORTH[facility] [address] [place] [address] Status post total hip replacement, left (Primary Dx) Discharge Disposition: Home or Self Care Social History Tobacco Use Types Packs/Day Years [...] Sign Reading Time Taken Comments Blood Pressure 129/70 03/21/2024 7:43 AM CDT Pulse 83 03/21/2024 7:43 AM CDT Temperature 37.2 ??C (99 ??F) 03/21/2024 7:43 AM CDT Respiratory Rate 16 03/21/2024 7:43 AM CDT Oxygen Saturation 95% 03/21/2024 7:43 AM CDT Inhaled Oxygen Concentration - - Weight 88.2 kg (194 lb 7.1 oz) 03/20/2024 11:45 AM CDT Height 160 cm (5' 3) 03/20/2024 6:12 AM CDT Body Mass Index 34.44 03/20/2024 6:12 AM CDT documented in this encounter Discharge Instructions * Discharge Instructions* Morgan Garcia MD - 03/21/2024 11:07 AM CDT Monitor BP at home Resume Metoprolol 03/21 (HOLD FOR SBP less than 110 or heart rate less than 60) HOLD LOSARTAN and Spirinolactone for 2 days . Monitor BP at home and resume once BP persistently more than 130 SBP (higher number) documented in this encounter Medications at Time of Discharge Medication Sig Dispensed Refills Start Date End Date acetaminophen (TYLENOL) 325 MG tabletIndications:Statu s post total hip replacement, left Take 3 tablets (975 mg) by mouth every 6 hours as needed for mild pain 100 tablet 03/20/2024 aspirin (ASA) 325 MG EC tabletIndications:Statu s post total hip replacement, left Take 1 tablet (325 mg) by mouth daily for 42 days 42 tablet 03/20/2024 05/01/2024 atorvastatin (LIPITOR) 40 MG tabletIndications:[place] artery disease involving [place] coronary artery of [place] heart without angina pectoris,Palpitations Take 1 tablet (40 mg) by mouth daily 90 tablet 3 04/06/2022 citalopram (CELEXA) 20 MG tablet Take 20 mg by mouth daily 04/07/2020 golimumab (SIMPONI) 50 MG/0.5ML auto-injector pen 50 mg every 28 days losartan (COZAAR) 100 MG tabletIndications:Benig n essential hypertension Take 1 tablet (100 mg) by mouth daily 90 tablet 02/23/2023 meloxicam (MOBIC) 15 MG tabletIndications:Statu s post total hip replacement, left Take 1 tablet (15 mg) by mouth daily for 42 days 42 tablet 03/20/2024 05/01/2024 metoprolol tartrate (LOPRESSOR) 25 MG tabletIndications:[place] artery disease involving [place] coronary artery of [place] heart without angina pectoris,Palpitations Take 1 tablet (25 mg) by mouth 2 times daily 180 tablet 02/23/2023 Multiple Vitamin (MULTI-VITAMINS) TABS Take by mouth daily omeprazole (PRILOSEC) [address] capsule 20 mg daily oxyCODONE (ROXICODONE) 5 MG tabletIndications:Statu s post total hip replacement, left Take 0.5-1 tablets (2.5-5 mg) by mouth every 6 hours as needed for pain Take 1/2 tablet to 1 tablet every 4-6 hours as needed for moderate to advanced pain. NOT TO EXCEED 6 TABLETS IN 1 DAY 30 tablet 03/21/2024 senna-docusate (SENOKOT-S/PERICOLACE) 8.6-50 MG tabletIndications:Statu s post total hip replacement, left Take 1-2 tablets by mouth 2 times daily Take while on oral narcotics to prevent or treat constipation. 30 tablet 03/20/2024 documented as of this encounter Progress Notes * Mayra Butts, ANUM - 03/21/2024 1:02 PM CDT Patient vital signs are at baseline: Yes Patient able to ambulate as they were prior to admission or with assist devices provided by therapies during their stay: Yes Patient MUST void prior to discharge: Yes Patient able to tolerate oral intake: Yes Pain has adequate pain control using Oral analgesics: Yes Does patient have an identified onsite health coach: Yes Has goal D/C date and time been discussed with patient: Yes * Mariana Gamez PA-C - 03/21/2024 8:26 AM CDT Images from the original note were not included. Orthopedic Surgery 03/21/2024 POD #1 Ms. Song is doing well status post left total hip arthroplasty. Patient voices no complaints today. Pain is well controlled. Vitals: Blood pressure 129/70, pulse 83, temperature 99 ??F (37.2 ??C), temperature source Oral, resp. rate16, height 1.6 m (5' 3), weight 88.2 kg (194 lb 7.1 oz), SpO2 95%, not currently . Labs: Lab Results Component Value Date HGB 16.6 03/12/2022 HGB 13.3 01/04/2021 Exam: Neurovascularly intact. Calves are soft and non-tender bilaterally. The foot is warm with normal capillary refill. The dressing is C/D/I. Assessment: Ms. Song is doing well status post left total hip arthroplasty. Plan: 1. No dressing change, patient to remove outer dressing on POD3, leaving mesh adhesive in place for4 weeks. 2. Mobilize and continue physical therapy. 3. DVT prophylaxis with Aspirin 325mg. 4. Pain control with Meloxicam, Tylenol, and Oxycodone PRN. 5. Discharge to home today. Mariana Gamez PA-C [phone] * Qi Lewis RN - 03/20/2024 10:33 PM CDT MD Notification Notified Person: MD Notified Person Name: aeronautical engineering technologist loki CAT ( DR. Bazzi). Notification Date/Time: 10:34 pm 03/20 Notification Interaction: phone call Purpose of Notification: lactic acid 2.9 Orders Received: DR BAZZI aeronautical engineering technologist orthropedics call at this time 11:07 pm continue with iv fluidsand monitor for tonight. Also will reorder discontinue orders in the morning and will order for hospitalist. [place] hospitalist order Comments: * Corina Ceja, RFEDDY - 03/17/2024 12:37 PM CDT SHIPPING ASSISTANT medications updated by Medication Scribe prior to surgery via phone call with patient (last doses completed by Nurse) Medication history sources: Patient, Surescripts, and (Cardiology Progress Note) In the past week, patient estimated taking medication this percent of the time: Greater than 90% Significant changes made to the medication list: Patient reports no longer taking the following meds (med scribe removed from SHIPPING ASSISTANT med list): azathioprine, Spironolactone Additional medication history information: None Medication reconciliation completed by provider prior to medication history? No Time spent in this activity: 40 minutes The information provided in this note is only as accurate as the sources available at the time of update(s) Prior to Admission medications Medication Sig Last Dose Taking? Auth Provider Lockstitch Coat Joiner End Date acetaminophen (TYLENOL) 500 MG tablet Take 500-1,000 mg by mouth every 6 hours as needed for mild pain Unknown at prn Yes Reported, Patient ASPIRIN LOW DOSE 81 MG EC tablet Take 1 tablet (81 mg) by mouth daily 03/12/2024 at am Yes Rahul Ford MD atorvastatin (LIPITOR) 40 MG tablet Take 1 tablet (40 mg) by mouth daily at pm Yes Rahul Ford MD Yes citalopram (CELEXA) 20 MG tablet Take 20 mg by mouth daily at am Yes Reported, Patient Yes golimumab (SIMPONI) 50 MG/0.5ML auto-injector pen 50 mg every 28 days 10 days ago at am Yes Reported, Patient losartan (COZAAR) 100 MG tablet Take 1 tablet (100 mg) by mouth daily at am Yes Chadwick Jensen NP Yes metoprolol tartrate (LOPRESSOR) 25 MG tablet Take 1 tablet (25 mg) by mouth 2 times daily at am Chadwick George, LATOSHA Yes Multiple Vitamin (MULTI-VITAMINS) TABS Take by mouth daily 03/12/2024 at am Yes Reported, Patient omeprazole (PRILOSEC) [address] capsule 20 mg daily at am Yes Reported, Patient Medication history completed by: Corina Ceja LPN documented in this encounter Consult Notes * Morgan Garcia MD - 03/21/2024 11:08 AM CDTAssociated Order(s): HOSPITALIST IP CONSULT [facility] Consult Note - Hospitalist Service Date of Admission: 03/20/2024 Consult Requested by: Kai Diop MD Reason for Consult: HTN Assessment & Plan Kriss Song is a 63 year old female admitted on 03/20/2024 for Lt ARVIND. Medicine service consulted for post operative hemodynamics, medications review # HTN: SHIPPING ASSISTANT on Metoprolol (resumed with hold parameters) HOLD Losartan and Spironolactone for now. Patient given instructions to monitor at home and resume in stepwise fashion Other Mx as per primary team Meds reconciled. Medically stable for discharge once clear from ortho, PT Clinically Significant Risk Factors Present on Admission # Drug Induced Platelet Defect: home medication list includes an antiplatelet medication # Hypertension: Noted on problem list # Obesity: Estimated body mass index is 34.44 kg/m?? as calculated from the following: Height as of this encounter: 1.6 m (5' 3). Weight as of this encounter: 88.2 kg (194 lb 7.1 oz). Morgan Garcia MD Hospitalist Service Securely message with [employer] (more info) Text page via [facility] Paging/Directory Chief Complaint S/p Lt ARVIND History is obtained from the patient Review of EMR History of Present Illness Kriss Song is a 63 year old female admitted on 03/20/2024 for Lt ARVIND. Medicine service consulted for post operative hemodynamics, medications review Denies Chest pain/ SOB/ cough, Denies any N&V/ bowel problems. Denies urinary problems , Deniesfever/chills/rigors Keen on going home Past Medical History Past Medical History: Diagnosis Date Anxiety Coronary artery disease 04/2020 GERD (gastroesophageal reflux disease) Heart palpitations Hypercholesterolemia Hyperhidrosis Hypertension Hypothyroidism NSTEMI (non-ST elevated myocardial infarction) (H) 04/2020 No intervention on cardiac cath CADENCE (obstructive sleep apnea) Psoriatic arthritis (H) Past Surgical History Past Surgical History: Procedure Laterality Date BREAST LUMPECTOMY BUNIONECTOMY SECTION COLPOSCOPY WITH CERVIAL BIOPSY EGD ENDOMETRIAL ABLATION TOTAL HIP ARTHROPLASTY Left 03/20/2024 Procedure: LEFT TOTAL HIP ARTHROPLASTY DIRECT ANTERIOR APPROACH WITH ORTHOGRID; Surgeon: Kai Diop MD; Location: [facility] OR [facility] Medications I have reviewed this patient's current medications Physical Exam BP 129/70 (BP Location: Right arm) Pulse 83 Temp 99 ??F (37.2 ??C) (Oral) Resp 16 Ht 1.6 m (5' 3) Wt 88.2 kg (194 lb 7.1 oz) LMP (LMP Unknown) SpO2 95% BMI 34.44 kg/m?? Gen- pleasant Neck- supple CVS- I+II+ no m/r/g RS- CTAB Abdo- soft, no tenderness . No g/r/r Ext- as per ortho Medical Decision Making 45 MINUTES SPENT BY ME on the date of service doing chart review, history, exam, documentation & further activities per the note. Data PAST 24 HR DATA REVIEWED I have personally reviewed the following data over the past 24 hrs: N/A \ N/A / N/A N/A N/A N/A / N/A N/A N/A N/A \ Procal: N/A CRP: N/A Lactic Acid: 1.8 Imaging results reviewed over the past 24 hrs: No results found for this or any previous visit (from the past 24 hour(s)). documented in this encounter Nursing Notes * Apple Moore RN - 03/20/2024 10:37 AM CDT Signed out given by NIKO Goodwin. Patient ok to be transfer to the floor documented in this encounter Miscellaneous Notes * Plan of Care - Nava Hutson, PT - 03/21/2024 10:09 AM CDT Physical Therapy Discharge Summary Reason for therapy discharge: Discharged to home. Progress towards therapy goal(s). See goals on [facility] Plan in [facility] electronic health record for goal details. Goals met Therapy recommendation(s): Continue home exercise program. * Plan of Care - Qi Lewis RN - 03/21/2024 6:23 AM CDT Goal Outcome Evaluation: Summary: 03-21-24 [id number] Diagnosis: left total hip arthroplasty POD#1 Orientation: Alert x4 Vitals/Tele: VSS on RA Pain management: scheduled tylenol, toradol, prn oxycodone x1 IV Access/drains: PIV infusion LR 100ml/hr Diet: regular Mobility: up with one GI/: up to the bathroom Wound/Skin: lef hip incision dressing CDI, CMS intact Consults: Discharge Plan: possibly today Patient vital signs are at baseline: Yes Patient able to ambulate as they were prior to admission or with assist devices provided by therapies during their stay: Yes - up with one assist/GB/walker. Patient MUST void prior to discharge: Yes - bathroom. Patient able to tolerate oral intake: Yes Pain has adequate pain control using Oral analgesics: Yes - scheduled Tylenol and IV Tordol with PRN Oxycodone. Does patient have an identified onsite health coach: Yes Has goal D/C date and time been discussed with patient: Yes * Plan of Care - Carmella Vargas RN - 03/20/2024 6:58 PM CDT Goal Outcome Evaluation: Patient vital signs are at baseline: Yes Patient able to ambulate as they were prior to admission or with assist devices provided by therapies during their stay: Yes - up with one assist/GB/walker. Patient MUST void prior to discharge: Yes - bathroom. Patient able to tolerate oral intake: Yes Pain has adequate pain control using Oral analgesics: Yes - scheduled Tylenol and IV Tordol with PRN Oxycodone. Does patient have an identified onsite health coach: Yes Has goal D/C date and time been discussed with patient: Yes * Op Note - Kai Diop MD - 03/20/2024 8:23 AM CDT DATE OF SERVICE: 03/20/2024 SURGEON KAI CARRILLO M.D. DIVISION TOLL WIRE CHIEF Mariana Gamez PA-C - Assisting MARISSA Casanova OPA-C - Assisting PREOPERATIVE DIAGNOSIS Left hip osteoarthritis, failed to respond to conservative management. POSTOPERATIVE DIAGNOSIS Left hip osteoarthritis, failed to respond to conservative management. TITLE OF PROCEDURE Left total hip arthroplasty, Depuy uncemented components, direct anterior approach. OrthoGrid Fluroscopic hip navigation. PROCEDURE The patient was brought to the operating room and after satisfactory anesthesia was placed on the [place] table. The left lower extremity was then prepped and draped in the usual sterile fashion. OrthoGrid Fluroscopic hip navigation was utilized during the case for component positioning as well as leglength assessment. An incision was made just lateral to the ASIS and coursing toward the proximal femur. Dissection was carried down to the TFL. The fascia overlying the TFL was incised and dissection was carried down to the interval between TFL and rectus femoris. This was identified. A lateral cobra retractor was placed followed by a medial cobra around the femoral neck. The leash vessels, anterior circumflex, was identified and was coagulated. The underlying fascia was released. Dissection was carried down to the hip capsule. Capsule was identified and a capsulotomy was performed in a T-type fashion first along the intertrochanteric line and then secondarily up along the femoral neck andhead, finally completed by releasing along the saddle of the trochanter. The capsular edges were tagged for later repair. The hip was then externally rotated and medial capsular release was performedsuch that the lesser trochanter could be palpated. Following this, the femoral neck was osteotomized as per the preoperative plan. The femoral head was removed with a corkscrew without difficulty. The acetabulum was exposed and was reamed sequentially up to 52 mm. This was reamed under both direct visualization as well as the aid of image intensification. A 52 mm [place] cup was impacted into place in approximately 40 to 45 degrees of abduction, and 20 degrees of anteversion. Two screws were pl aced and this gave excellent fixation. The 36 mm neutral liner was impacted into place. Attention was then directed to the femur. The hook was placed underneath the proximal aspect of thefemur between the trochanteric ridge and gluteus yonny. The hip was then brought into external rotation, adduction, and extension. The femur was then carefully elevated using the appropriate releases off the inside of the greater trochanter. Once the femur was elevated, a starter broach was placed followed by sequential broaches. The broaches were performed up to size 2 Actis, which gave excellent torsinal as well as axial stability. Trial reduction was performed with a high offset +1.5mm head. The hip was reduced and with hip reduction the combined anteversion looked excellent. The hip wasbrought into full extension and external rotation. There was no evidence of instability. As well, x-rays were printed and compared with the opposite side and found to have good length and restorationof offset. It was felt that an additional stem size could not be placed. The hip was then dislocated and then the proximal femur was then brought back up into the proximal aspect of the wound. The real size 2 actis stem, high offset was impacted into place. Again this gave excellent torsion as wellas axial stability. The real +1.5mm ceramic biolox head was impacted into place and the hip was reduced again. The image intensification confirmed excellent position of the components. A 3 minute dilu te betadine soak was performed. The wound was thoroughly irrigated. One gram of vancomycin powder was placed deep and superficial prior to closure. The capsule was closed with interrupted 0 Vicryl suture and tissues infiltrated with toradol/marcaine mixture. The tensor fascia was closed with a running 0 Stratafix suture. The subcutaneous layer was closed with interrupted 2-0 Vicryl, 2-0 Stratafix, and 3-0 subcuticular monocryl was placed followed by a mesh dressing with skin glue. Sterile dressing was applied. The patient left the operating room in satisfactory condition. Patient received 1 gm of tranexamic acid pre-op. A skilled certified medical technician assistant was necessary for this procedure for assistance with patient positioning,prepping, draping, surgical visualization, performance of the repair, wound closure, and application of the dressing. * Brief Op Note - Kai Diop MD - 03/20/2024 5:29 AM CDT [facility] Brief Operative Note Pre-operative diagnosis: Left hip OA Post-operative diagnosis same Procedure: LEFT DIRECT ANTERIOR TOTAL HIP ARTHROPLASTY Surgeon(s) and Role: * Kai Diop MD - Primary * Mariana Gamez PA-C - Assisting * MARISSA Casanova OPA-C - Assisting Anesthesia: General Estimated blood loss: 300 ml Drains: None Specimens: None Findings: Advanced OA Complications: None Plan: DC home POD1 w/family assist. DVT prophylaxis w/ASA 325mg QD x6wks. Implants: Implant Name Type Inv. Item Serial No. Refractory Repairer Lot No. LRB No. Used Action IMP CUP LAURA PINNACLE 52MM 1217-22-052 - [id number] Total Joint Component/Insert IMP CUP LAURA PINNACLE 52MM 1217-22-052 [employer] [facility]- [id number] Left 1 Implanted IMP APEX HOLE ELIMINATOR HIP DEPUY DURALOC 1246-03-000 - [id number] Metallic Hardware/[place] IMP APEX HOLE ELIMINATOR HIP DEPUY DURALOC 1246-03-000 [employer]- [id number] Left 1 Implanted IMP SCR BONE CAN LAURA 6.5X35MM 1217-35-500 - [id number] Metallic Hardware/[place] IMP SCR BONE CAN LAURA 6.5X35MM 1217-35-500 J[employer]J [facility]- [id number] Left 1 Implanted IMP SCR BONE CAN LAURA 6.5X20MM 1217-20-500 - [id number] Metallic Hardware/[place] IMP SCR BONE CAN LAURA 6.5X20MM 1217-20-500 [employer]- [id number] Left 1 Implanted IMP INSERT HIP DEPUY PINNACLE ALTRX [id number] 1221-36-052 - [id number] Total Joint Component/Insert IMP INSERT HIP DEPUY PINNACLE ALTRX [id number] 1221-36-052 [employer] C[employer] [facility]- [id number] Left 1 Implanted IMP STEM FEM DEPUY ACTIS COLLAR HI-OFFSET SZ 2MM 1010-12-020 - [id number] Total Joint Component/Insert IMP STEM FEM DEPUY ACTIS COLLAR HI-OFFSET SZ 2MM 1010-12-020 [employer]- Left 1 Implanted IMP HEAD FEMORAL DEPUY CERAMIC 36MM +1.5MM 1365-36-310 - [id number] Total Joint Component/Insert IMP HEAD FEMORAL DEPUY CERAMIC 36MM +1.5MM 1365-36-310 [employer]- [id number] Left 1 Implanted documented in this encounter Plan of Treatment Upcoming Encounters Date Type Department Care Team (Latest Contact Info) Description 07/24/2024 7:30 AM [facility] Hospital Encounter [facility] PeriOP Services [address] [place] [id number] Kai Diop MD [facility] ORTHOPED[facility] [address] [place] [address] 07/24/2024 7:30 AM RADIATOR MECHANIC - 07/24/2024 11:00 AM RADIATOR MECHANIC Surgery [facility] [address] [place] [address] Kai Diop MD [facility] [address] [place] [address] RIGHT TOTAL HIP ARTHROPLASTY DIRECT ANTERIOR APPROACH WITH ORTHO GRID Scheduled Procedures Name Priority Associated Diagnoses Date/Ti me ARTHROPLASTY, HIP, TOTAL, DIRECT ANTERIOR APPROACH, USING ORTHOGRID Degenerative joint disease (DJD) of hip 07/24/2024 7:30 AM RADIATOR MECHANIC documented as of this encounter Procedures Procedure Name Priority Date/Time Associated Diagnosis Comments LACTIC ACID WHOLE BLOOD Early AM 03/21/2024 1:24 AM CDT LACTIC ACID WHOLE BLOOD WITH 1X REPEAT IN 2 HR WHEN >2 STAT 03/20/2024 10:40 PM CDT LACTIC ACID WHOLE BLOOD Early AM 03/20/2024 10:40 PM CDT LACTIC ACID WHOLE BLOOD WITH 1X REPEAT IN 2 HR WHEN >2 STAT 03/20/2024 9:34 PM CDT XR PELVIS AND HIP PORTABLE LEFT 1 VIEW STAT 03/20/2024 11:20 AM CDT XR SURGERY DULCE FLUORO LESS THAN 5 MIN W STILLS Routine 03/20/2024 9:31 AM CDT ARTHROPLASTY, HIP, TOTAL, DIRECT ANTERIOR APPROACH, USING ORTHOGRID 03/20/2024 7:38 AM CDT Degenerative joint disease of left hip Special Needs Pt verified procedure and laterality: LEFT*htn, cad, afib, nstemi(2019)-asaREQUESTING 180MINS POTASSIUM STAT 03/20/2024 7:11 AM CDT CREATININE Add-On 03/20/2024 7:11 AM CDT GLUCOSE STAT 03/20/2024 7:11 AM CDT EKG CARDIAC - HIM SCAN 02/28/2024 12:00 AM CDT EKG CARDIAC - HIM SCAN 02/28/2024 12:00 AM CDT EKG CARDIAC - HIM SCAN 02/28/2024 12:00 AM CDT documented in this encounter Results * Lactic acid whole blood (03/21/2024 1:24 AM CDT) Lactic Acid 1.8 0.7 - 2.0 mmol/L 03/21/2024 1:33 AM CDT LABORATORY Blood STRUCTURE OF RIGHT UPPER LIMB / Unknown Venipuncture / Unknown 03/21/2024 1:24 AM CDT 03/21/2024 1:32 AM CDT Jose Angel Villagomez MD LAB - BLOOD ORDERAB LES LABORATORY [facility] [address], [address] [place] [address], [facility] [phone] * (ABNORMAL) Lactic Acid Whole Blood w/ 1x repeat in 2 hrs when >2 (03/20/2024 10:40 PM CDT) Lactic Acid, Initial 2.5(H) 0.7 - 2.0 mmol/L 03/20/2024 11:05 PM CDT LABORATORY Blood STRUCTURE OF RIGHT HAND / Unknown Venipuncture / Unknown 03/20/2024 10:40 PM CDT 03/20/2024 10:49 PM CDT Jose Angel Villagomez MD LAB - BLOOD ORDERAB LES LABORATORY [facility] [address], [address] [place] [address], [facility] [phone] * (ABNORMAL) Lactic acid whole blood (03/20/2024 10:40 PM CDT) Lactic Acid 2.5(H) 0.7 - 2.0 mmol/L 03/20/2024 10:58 PM CDT LABORATORY Blood STRUCTURE OF RIGHT HAND / Unknown Venipuncture / Unknown 03/20/2024 10:40 PM CDT 03/20/2024 10:49 PM CDT Kai Diop MD LAB - BLOOD ORDERABL ES LABORATORY [facility] [address], [address] [place] [address], [facility] [phone] * (ABNORMAL) Lactic Acid Whole Blood w/ 1x repeat in 2 hrs when >2 (03/20/2024 9:34 PM CDT) Lactic Acid, Initial 2.9(H) 0.7 - 2.0 mmol/L 03/20/2024 10:06 PM CDT LABORATORY Blood STRUCTURE OF RIGHT UPPER LIMB / Unknown Venipuncture / Unknown 03/20/2024 9:34 PM CDT 03/20/2024 9:52 PM CDT Kai Diop MD LAB - BLOOD ORDERABL ES Performing Organization Address City/[facility]/ZIP Co de Phone Number [facility] [address] 1st floor, [address] [place] [address], [facility] [phone] * XR Pelvis w Hip Port Left 1 View (03/20/2024 11:20 AM CDT) Anatomical Region Laterality Modality Abdomen/Pelvis Left Digital Radiogra phy Impressions 03/20/2024 11:25 AM CDT IMPRESSION: Status post recent left total hip arthroplasty. No immediate hardware complication. Expected postsurgical soft tissue edema and subcutaneous emphysema. No acute fracture or malalignment. LB TINEO MD SYSTEM ID: ??[id number] Narrative 03/20/2024 11:25 AM CDT XR PELVIS AND HIP PORTABLE LEFT 1 VIEW ??03/20/2024 11:20 AM HISTORY: Status post Hip surgery COMPARISON: None Procedure Note Lb Tineo MD - 03/20/2024 XR PELVIS AND HIP PORTABLE LEFT 1 VIEW 03/20/2024 11:20 AM HISTORY: Status post Hip surgery COMPARISON: None IMPRESSION: Status post recent left total hip arthroplasty. No immediate hardware complication. Expected postsurgical soft tissue edema and subcutaneous emphysema. No acute fracture or malalignment. LB TINEO MD SYSTEM ID: [id number] Kai Diop MD [facility] DIAGNOSTIC IMAGI NG ORDERABLES * XR Surgery DULCE L/T 5 Min Fluoro w Stills (03/20/2024 9:31 AM CDT) Anatomical Region Laterality Modality Abdomen/Pelvis Radio Fluoroscop y Impressions 03/20/2024 9:33 AM CDT IMPRESSION: Intraprocedural spot films demonstrate placement of a left total hip arthroplasty. Please reference the surgical report for further details. LB TINEO MD SYSTEM ID: ??[id number] Narrative 03/20/2024 9:33 AM CDT XR SURGERY DULCE FLUORO LESS THAN 5 MIN W STILLS 03/20/2024 9:31 AM HISTORY: Left total hip arthroplasty. NUMBER OF IMAGES ACQUIRED: 7 VIEWS: 1 FLUOROSCOPY TIME: .9 minutes Procedure Note Lb Tineo MD - 03/20/2024 XR SURGERY DULCE FLUORO LESS THAN 5 MIN W STILLS 03/20/2024 9:31 AM HISTORY: Left total hip arthroplasty. NUMBER OF IMAGES ACQUIRED: 7 VIEWS: 1 FLUOROSCOPY TIME: .9 minutes IMPRESSION: Intraprocedural spot films demonstrate placement of a left total hip arthroplasty. Please reference the surgical report for further details. LB TINEO MD SYSTEM ID: [id number] Kai Diop MD [facility] DIAGNOSTIC IMAGI NG ORDERABLES * Creatinine (03/20/2024 7:11 AM CDT) Creatinine 0.77 0.51 - 0.95 mg/dL 03/20/2024 7:49 PM CDT LABORATORY GFR Estimate 87 >60 mL/min/1.7 3m2 03/20/2024 7:49 PM CDT LABORATORY Comment:eGFR calculated usin 2020 CKD-EPI equation. Blood STRUCTURE OF RIGHT UPPER LIMB / Unknown Venipuncture / Unknown 03/20/2024 7:11 AM CDT 03/20/2024 7:31 AM CDT Kai Diop MD LAB - BLOOD ORDERABL ES LABORATORY [facility] [address] 1[address] floor, [address] [place] [address], [place] [phone] * Glucose (03/20/2024 7:11 AM CDT) Glucose 98 70 - 99 mg/dL 03/20/2024 7:52 AM CDT LABORATORY Patient Fasting > 8hrs? Yes 03/20/2024 7:52 AM CDT LABORATORY Blood STRUCTURE OF RIGHT UPPER LIMB / Unknown Venipuncture / Unknown 03/20/2024 7:11 AM CDT 03/20/2024 7:31 AM CDT Brayan Goodwin MD LAB - BLOOD ORDERA BLES Performing Organization Address City/[facility]/ZIP Co de Phone Number [facility] [address] 1[address], [address] [place] [address], [facility] [phone] * Potassium (03/20/2024 7:11 AM CDT) Potassium 4.1 3.4 - 5.3 mmol/L 03/20/2024 7:52 AM CDT LABORATORY Blood STRUCTURE OF RIGHT UPPER LIMB / Unknown Venipuncture / Unknown 03/20/2024 7:11 AM CDT 03/20/2024 7:31 AM CDT Brayan Goodwin MD LAB - BLOOD ORDERA BLES LABORATORY [facility] [address] 1[address], [address] [place] [address], [facility] [phone] * EKG Cardiac - HIM Scan (02/28/2024 12:00 AM CDT) 02/28/2024 Provider Outside ECG ORDERABLES * EKG Cardiac - HIM Scan (02/28/2024 12:00 AM CDT) 02/28/2024 Provider Outside ECG ORDERABLES * EKG Cardiac - HIM Scan (02/28/2024 12:00 AM CDT) 02/28/2024 Provider Outside ECG ORDERABLES documented in this encounter Visit Diagnoses Diagnosis Status post total hip replacement, left- Primary Status post left hip replacement Hip joint replacement by other means Degenerative joint disease (DJD) of hip documented in this encounter Administered Medications Inactive Administered Medications - up to 3 most recent administrations Medication Order MAR Action Action Date Dose Rate Site acetaminophen (TYLENOL) tablet 650 mg 650 mg, Oral, EVERY 4 HOURS PRN, other, For optimal non-opioid multimodal pain management to improve pain control., Starting on 03/23/24 at 0000, May give first dose 4 hours after last scheduled dose of acetaminophen (TYLENOL). Maximum acetaminophen dose from all sources = 75 mg/kg/day not to exceed 4 grams/day. acetaminophen (TYLENOL) tablet 975 mg 975 mg, Oral, ONCE, On Nathaly 03/20/24 at 0630, For 1 dose, Maximum acetaminophen dose from all sources = 75 mg/kg/day not to exceed 4 grams/day., Pre-procedure $Given 03/20/2024 6:24 AM CDT 975 mg acetaminophen (TYLENOL) tablet 975 mg 975 mg, Oral, EVERY 8 HOURS, First dose on Nathaly 03/20/24 at 1430, For 3 days, Administer for multimodal surgical pain management. Maximum acetaminophen dose from all sources = 75 mg/kg/day not to exceed 4 grams/day. $Given 03/20/2024 1:38 PM CDT 975 mg acetaminophen (TYLENOL) tablet 975 mg 975 mg, Oral, EVERY 8 HOURS, First dose (after last reorder) on Sun03/20/24 at 2200, For 8 doses, Administer for multimodal surgical pain management. Maximum acetaminophen dose from all sources = 75 mg/kg/day not to exceed 4 grams/day. $Given 03/21/2024 5:36 AM CDT 975 mg $Given 03/20/2024 9:38 PM CDT 975 mg aspirin (ASA) EC tablet 325 mg 325 mg, Oral, DAILY, First dose (after last reorder) on Sun03/21/24 at 0900, Indications: VTE Prophylaxis, DO NOT CRUSH. DO NOT CRUSH. $Given 03/21/2024 8:47 AM CDT 325 mg benzocaine-menthol (CHLORASEPTIC) 6-10 MG lozenge 1 lozenge 1 lozenge, Buccal, EVERY 1 HOUR PRN, sore throat, sore throat without fever, Starting on Nathaly 03/20/24 at 1154 $Given 03/20/2024 5:03 PM CDT 1 lozenge benzocaine-menthol (CHLORASEPTIC) 6-10 MG lozenge 1 lozenge 1 lozenge, Buccal, EVERY 1 HOUR PRN, sore throat, sore throat without fever, Starting on Sun03/20/24 at 2036 $Given 03/20/2024 8:57 PM CDT 1 lozenge bisacodyl (DULCOLAX) suppository 10 mg 10 mg, Rectal, DAILY PRN, constipation, Use if Magnesium hydroxide (MILK of MAGNESIA) not effective after 24 hours. May discontinue if patient having bowel movement., Starting on Sun03/20/24 at 2036, Hold for loose stools. calcium carbonate (TUMS) chewable tablet 500 mg 500 mg, Oral, 4 TIMES DAILY PRN, heartburn, Starting on Nathaly 03/20/24 at 1154 $Given 03/20/2024 5:03 PM CDT 500 mg calcium carbonate (TUMS) chewable tablet 500 mg 500 mg, Oral, 4 TIMES DAILY PRN, heartburn, Starting on Nathaly 03/20/24 at 2037 ceFAZolin (ANCEF) 2 g in 100 mL D5W intermittent infusion Routine, 2 g, Intravenous, EVERY 8 HOURS, First dose on Nathaly 03/20/24 at 1530, For 2 doses, First post-op dose due 8 hours after intra-op dose, see eMAR. , Indications: Perioperative Pharmacoprophylaxis $New Bag 03/20/2024 4:39 PM CDT 2 g 200 mL/hr ceFAZolin (ANCEF) 2 g in 100 mL D5W intermittent infusion Routine, 2 g, Intravenous, EVERY 8 HOURS, First dose (after last reorder) on Sun03/21/24 at 0100, For 1 dose, First post-op dose due 8 hours after intra-op dose, see eMAR. , Indications: Perioperative Pharmacoprophylaxis $New Bag 03/21/2024 12:04 AM CDT 2 g 200 mL/hr diphenhydrAMINE (BENADRYL) capsule 25 mg 25 mg, Oral, EVERY 6 HOURS PRN, itching, anxiety, Starting on Nathaly 03/20/24 at 2036, Caution to be used when administering multiple Central Nervous System (SULKY DRIVER) depressing meds within a short time frame. fentaNYL (PF) (SUBLIMAZE) injection 25 mcg 25 mcg, Intravenous, EVERY 5 MIN PRN, moderate pain, Give fentaNYL (SUBLIMAZE) first if HYDROmorphone (DILAUDID) also ordered., Starting on Nathaly 03/20/24 at 1008, Administer fentaNYL (SUBLIMAZE) for acute pain control. Move to HYDROmorphone (DILAUDID): - IF patient has received up to 200 mcg of fentaNYL (SUBLIMAZE) OR - IF patient has received 2 doses of fentaNYL (SUBLIMAZE) AND continues to have pain score greater than or equal to six (6) or is unable to participate in post op recovery due to pain. Wait 5 minutes AFTER last fentaNYL (SUBLIMAZE) dose before administering HYDROmorphone (DILADUDID). Postop Anesthesia Phase I only. Notify Provider to assess for uncontrolled pain or analgesic side effects. DO NOT revert back to fentanyl (SUBLIMAZE) after administering HYDROmorphone (DILAUDID)., PACU $Given 03/20/2024 10:40 AM CDT 25 mcg $Given 03/20/2024 10:30 AM CDT 25 mcg HYDROmorphone (DILAUDID) injection 0.2 mg 0.2 mg, Intravenous, EVERY 5 MIN PRN, moderate pain, Starting on Nathaly 03/20/24 at 1008, Use FentaNYL (SUBLIMAZE) first if ordered. Maximum total cumulative dose NOT to exceed 2 mg. DO NOT revert back to fentanyl (SUBLIMAZE) after administering HYDROmorphone (DILAUDID). Notify Provider to assess for uncontrolled pain or analgesic side effects., PACU $Given 03/20/2024 10:52 AM CDT 0.2 mg HYDROmorphone (DILAUDID) injection 0.2 mg 0.2 mg, Intravenous, EVERY 2 HOURS PRN, moderate pain, Starting on Nathaly 03/20/24 at 2036, IF patient unable to take oral pain medication or pain not controlled with oral analgesics. Hold IV PRN opioid dose for analgesic side effects. Notify provider to assess for uncontrolled pain or analgesic side effects. HYDROmorphone (DILAUDID) injection 0.4 mg 0.4 mg, Intravenous, EVERY 2 HOURS PRN, severe pain, Starting on Nathaly 03/20/24 at 2036, IF patient unable to take oral pain medication or pain not controlled with oral analgesics. Hold IV PRN opioid dose for analgesic side effects. Notify provider to assess for uncontrolled pain or analgesic side effects. hydrOXYzine HCl (ATARAX) tablet 25 mg 25 mg, Oral, EVERY 6 HOURS PRN, other, adjuvant pain, Starting on Nathaly 03/20/24 at 2036 ketorolac (TORADOL) injection 15 mg 15 mg, Intravenous, EVERY 6 HOURS, First dose on Nathaly 03/20/24 at 1530, For 4 doses, May continue use for up to 5 days MAX if order renewed. IF celecoxib (CELEBREX) was given pre-operatively, start ketorolac (TORADOL) 12 hours after celecoxib (CELEBREX) given. Can cause pain on injection. If ordered intravenously (IV) : administer through a running maintenance fluid over 1 minute followed by a flush. If patient complains of pain on injection, may dilute 15-30 mg in 5 mL and push over 1 to 2 minutes. $Given 03/20/2024 2:48 PM CDT 15 mg ketorolac (TORADOL) injection 15 mg 15 mg, Intravenous, EVERY 6 HOURS, First dose (after last reorder) on Nathaly 03/20/24 at 2100, For 3 doses, May continue use for up to 5 days MAX if order renewed. IF celecoxib (CELEBREX) was given pre-operatively, start ketorolac (TORADOL) 12 hours after celecoxib (CELEBREX) given. Can cause pain on injection. If ordered intravenously (IV) : administer through a running maintenance fluid over 1 minute followed by a flush. If patient complains of pain on injection, may dilute 15-30 mg in 5 mL and push over 1 to 2 minutes. $Given 03/21/2024 8:47 AM CDT 15 mg $Given 03/21/2024 3:07 AM CDT 15 mg $Given 03/20/2024 8:57 PM CDT 15 mg lactated ringers infusion at 10 mL/hr, Intravenous, CONTINUOUS, Pre-procedure, Starting on Nathaly 03/20/24 at 0730, Until Sun03/20/24 at 0952 $New Bag 03/20/2024 7:01 AM CDT 10 mL/hr lactated ringers infusion at 100 mL/hr, Intravenous, CONTINUOUS, IF overnight stay, continue IV fluids until 0400 POD #1, then may saline lock if tolerating oral fluids. IF Day of Surgery Discharge, continue IV Fluids until one hour before discharge., Starting on Nathaly 03/20/24 at 1200, Until [facility] 03/20/24 at 1944 $New Bag 03/20/2024 2:39 PM CDT 100 mL/hr Rate/Dose Verify 03/20/2024 11:45 AM CDT 100 mL /hr lactated ringers infusion at 100 mL/hr, Intravenous, CONTINUOUS, IF overnight stay, continue IV fluids until 0400 POD #1, then may saline lock if tolerating oral fluids. IF Day of Surgery Discharge, continue IV Fluids until one hour before discharge., Starting on Nathaly 03/20/24 at 2100, Until Sun03/21/24 at 1614 $New Bag 03/20/2024 8:57 PM CDT 100 mL/hr lidocaine (LMX4) cream Topical, EVERY 1 HOUR PRN, pain, with VAD insertion, Starting on Sun03/20/24 at 2036, Apply at least 30 minutes prior to VAD insertion in divided doses as needed for size of site for insertion. MAX Dose: 2.5 g (?? of 5 g tube) Do NOT give if patient has a history of allergy to any local anesthetic or any grady product. Do NOT use both lidocaine intradermal/subcutaneous injection and the lidocaine cream on the same site. lidocaine 1 % 0.1-1 mL 0.1-1 mL, Other, EVERY 1 HOUR PRN, mild pain with VAD insertion, Starting on Sun03/20/24 at 2036, MAX dose 1 mL subcutaneous OR intradermal along the side of the vein in divided doses as needed for VAD insertion. Do NOT give if patient has a history of allergy to any local anesthetic or any grady product. Do NOT use both lidocaine intradermal/subcutaneous injection and the lidocaine cream on the same site. magnesium hydroxide (MILK OF MAGNESIA) suspension 30 mL 30 mL, Oral, DAILY PRN, constipation, Use if preventive measures (senna-docusate, docusate, and polyethylene glycol) are not effective., Starting on Sun03/20/24 at 2036, Shake well. Hold for loose stools. meloxicam (MOBIC) tablet 15 mg 15 mg, Oral, ONCE, On Nathaly 03/20/24 at 0630, For 1 dose, Give in pre-op, Pre-procedure $Given 03/20/2024 6:24 AM CDT 15 mg metoprolol tartrate (LOPRESSOR) tablet 25 mg 25 mg, Oral, 2 TIMES DAILY, First dose on Sun03/21/24 at 1130, Tablets can be crushed and given via enteral route. Hold for SBP <110 or HR < 60 $Given 03/21/2024 11:26 AM CDT 25 mg naloxone (NARCAN) injection 0.2 mg 0.2 mg, Intravenous, EVERY 2 MIN PRN, opioid reversal, Starting on Sun03/20/24 at 2037, Administer intravenous route when available and notify provider when administered. For unintended sedation or respiratory depression if all of the below criteria are met: ~ respiratory rate LESS than or EQUAL to 8. ~SaO2 less than 92% and or/end-tidal CO2 is greater than 50. ~ the patient is receiving an opioid, has unintended sedations assessed as RASS (-3), and is currently not on mechanical ventilation. RASS scale moderate (-3) is movement or eye opening to voice but no eye contact. Patient Monitoring Once the patient has demonstrated a response to the naloxone, continue to monitor respiratory rate, depth, oxygen saturation and end-tidal CO2 (if available) every 15 minutes x 2, then every 30 minutes x 2, then every 1 hour x 1 after each naloxone dose. Consider transfer to ICU if patient respiratory parameters have not improved after 4 naloxone doses. naloxone (NARCAN) injection 0.2 mg 0.2 mg, Intramuscular, EVERY 2 MIN PRN, opioid reversal, Starting on Nathaly 03/20/24 at 2037, Administer intramuscular if an intravenous route is not available and notify provider when administered. For unintended sedation or respiratory depression if all of the below criteria are met: ~ respiratory rate LESS than or EQUAL to 8. ~SaO2 less than 92% and or/end-tidal CO2 is greater than 50. ~ the patient is receiving an opioid, has unintended sedations assessed as RASS (-3), and is currently not on mechanical ventilation. RASS scale moderate (-3) is movement or eye opening to voice but no eye contact. Patient Monitoring Once the patient has demonstrated a response to the naloxone, continue to monitor respiratory rate, depth, oxygen saturation and end-tidal CO2 (if available) every 15 minutes x 2, then every 30 minutes x 2, then every 1 hour x 1 after each naloxone dose. Consider transfer to ICU if patient respiratory parameters have not improved after 4 naloxone doses. naloxone (NARCAN) injection 0.4 mg 0.4 mg, Intravenous, EVERY 2 MIN PRN, opioid reversal, Starting on Nathaly 03/20/24 at 2037, Administer intravenous route when available and notify provider when administered. For unintended sedation or respiratory depression if all of the below criteria are met: ~ respiratory rate LESS than or EQUAL to 8. ~ SaO2 less than 92% and or/end-tidal CO2 is greater than 50. ~ the patient is receiving an opioid, has unintended sedation assessed as RASS (-4) or (-5) and patient is currently not on mechanical ventilation. RASS scale (-4) is deep sedation with no response to voice but movement or eye opening to physical stimulation. RASS scale (-5) is unarousable. Patient Monitoring Once the patient has demonstrated a response to the naloxone, continue to monitor respiratory rate, depth, oxygen saturation and end-tidal CO2 (if available) every 15 minutes x 2, then every 30 minutes x 2, then every 1 hour x 1 after each naloxone dose. Consider transfer to ICU if patient respiratory parameters have not improved after 4 naloxone doses. naloxone (NARCAN) injection 0.4 mg 0.4 mg, Intramuscular, EVERY 2 MIN PRN, opioid reversal, Starting on Nathaly 03/20/24 at 2037, Administer intramuscular if an intravenous route is not available and notify provider when administered. For unintended sedation or respiratory depression if all of the below criteria are met: ~ respiratory rate LESS than or EQUAL to 8. ~ SaO2 less than 92% and or/end-tidal CO2 is greater than 50. ~ the patient is receiving an opioid, has unintended sedation assessed as RASS (-4) or (-5) and patient is currently not on mechanical ventilation. RASS scale (-4) is deep sedation with no response to voice but movement or eye opening to physical stimulation. RASS scale (-5) is unarousable. Patient Monitoring Once the patient has demonstrated a response to the naloxone, continue to monitor respiratory rate, depth, oxygen saturation and end-tidal CO2 (if available) every 15 minutes x 2, then every 30 minutes x 2, then every 1 hour x 1 after each naloxone dose. Consider transfer to ICU if patient respiratory parameters have not improved after 4 naloxone doses. ondansetron (ZOFRAN ODT) ODT tab 4 mg 4 mg, Oral, EVERY 6 HOURS PRN, nausea, vomiting, Starting on Nathaly 03/20/24 at 2036, This is Step 1 of nausea and vomiting management. If nausea not resolved in 15 minutes, go to Step 2 prochlorperazine (COMPAZINE). Do not push through foil backing. Peel back foil and gently remove. Place on tongue immediately. Administration with liquid unnecessary With dry hands, peel back foil backing and gently remove tablet. Do not push oral disintegrating tablet through foil backing. Administer immediately on tongue and oral disintegrating tablet dissolves in seconds, then swallow with saliva. Liquid not required. ondansetron (ZOFRAN) injection 4 mg 4 mg, Intravenous, EVERY 6 HOURS PRN, nausea, vomiting, Administer over 2-5 Minutes, Starting on Nathaly 03/20/24 at 2036, This is Step 1 of nausea and vomiting management. If nausea not resolved in 15 minutes, go to Step 2 prochlorperazine (COMPAZINE). oxyCODONE (ROXICODONE) tablet 10 mg 10 mg, Oral, EVERY 4 HOURS PRN, severe pain, Starting on Nathaly 03/20/24 at 1154, Hold oral PRN dose for analgesic side effects. Notify provider to assess for uncontrolled pain or analgesic side effects. Hold while on IV PITCHING COACH or with regular IV opioid dosing. $Given 03/20/2024 4:39 PM CDT 10 mg oxyCODONE (ROXICODONE) tablet 10 mg 10 mg, Oral, EVERY 4 HOURS PRN, severe pain, Starting on Nathaly 03/20/24 at 2037, Hold oral PRN dose for analgesic side effects. Notify provider to assess for uncontrolled pain or analgesic side effects. Hold while on IV PITCHING COACH or with regular IV opioid dosing. $Given 03/21/2024 8:47 AM CDT 10 mg oxyCODONE (ROXICODONE) tablet 5 mg 5 mg, Oral, EVERY 4 HOURS PRN, moderate pain, Starting on Nathaly 03/20/24 at 1154, Hold oral PRN dose for analgesic side effects. Notify provider to assess for uncontrolled pain or analgesic side effects. Hold while on IV PITCHING COACH or with regular IV opioid dosing. $Given 03/20/2024 12:42 PM CDT 5 mg oxyCODONE (ROXICODONE) tablet 5 mg 5 mg, Oral, EVERY 4 HOURS PRN, moderate pain, Starting on Nathaly 03/20/24 at 2037, Hold oral PRN dose for analgesic side effects. Notify provider to assess for uncontrolled pain or analgesic side effects. Hold while on IV PITCHING COACH or with regular IV opioid dosing. $Given 03/20/2024 9:38 PM CDT 5 mg polyethylene glycol (MIRALAX) Packet 17 g 17 g, Oral, DAILY, First dose (after last reorder) on Sun03/21/24 at 0900, To prevent constipation. Mixed prescribed dose in 8 ounces of water, juice or soda. Administer daily starting at 0900 on POD 1. Hold for loose stools. 1 Packet = 17 grams. Mix each gram with at least 1/2 ounce (15 mL) of water - 8 ounces for 17 g dose, 4 ounces for 8.5 g dose, 2 ounces for 4 g dose. Follow with the same volume of water. Hold for loose stools unless being administered as part of a bowel prep regimen or bowel clean out. $Given 03/21/2024 8:47 AM CDT 17 g pregabalin (LYRICA) capsule 150 mg 150 mg, Oral, ONCE, On Nathaly 03/20/24 at 0630, For 1 dose, Give in pre-op., Pre-procedure $Given 03/20/2024 6:24 AM CDT 150 mg prochlorperazine (COMPAZINE) injection 10 mg 10 mg, Intravenous, EVERY 6 HOURS PRN, nausea, vomiting, Administer over 1-2 Minutes, Starting on Nathaly 03/20/24 at 2036, This is Step 2 of nausea and vomiting management. If nausea not resolved in 15-30 minutes, Notify provider. prochlorperazine (COMPAZINE) tablet 10 mg 10 mg, Oral, EVERY 6 HOURS PRN, nausea, vomiting, Starting on Nathaly 03/20/24 at 2036, This is Step 2 of nausea and vomiting management. If nausea not resolved in 15-30 minutes, Notify provider. senna-docusate (SENOKOT-S/PERICOLACE) 8.6-50 MG per tablet 1 tablet 1 tablet, Oral, 2 TIMES DAILY, First dose on Nathaly 03/20/24 at 1330, To prevent constipation. Hold for loose stools Hold for loose stools. $Given 03/20/2024 1:39 PM CDT 1 tablet senna-docusate (SENOKOT-S/PERICOLACE) 8.6-50 MG per tablet 1 tablet 1 tablet, Oral, 2 TIMES DAILY, First dose (after last reorder) on Nathaly 03/20/24 at 2100, To prevent constipation. Hold for loose stools Hold for loose stools. $Given 03/21/2024 8:47 AM CDT 1 tablet $Given 03/20/2024 8:57 PM CDT 1 tablet sodium chloride (PF) 0.9% PF flush 3 mL 3 mL, Intracatheter, EVERY 8 HOURS, First dose (after last reorder) on Nathaly 03/20/24 at 2200, to lock peripheral IV dormant line sodium chloride (PF) 0.9% PF flush 3 mL 3 mL, Intracatheter, EVERY 1 MIN PRN, line flush, other, to ensure patency or to lock dormant line, Starting on Nathaly 03/20/24 at 203 tranexamic acid (LYSTEDA) tablet 1,950 mg 1,950 mg, Oral, ONCE, On Nathaly 03/20/24 at 0630, For 1 dose, Administer with a sip of water in PRE OP area 90 minutes PRIOR to leaving Pre-op area., Pre-procedure $Given 03/20/2024 6:24 AM CDT 1,950 mg documented in this encounter Active and Recently Administered Medications Times are shown in CDT. Scheduled Medication Order 03/19/2024 03/20/2024 03/21/2024 acetaminophen (TYLENOL) tablet 975 mg (COMPLETED) 975 mg, Oral, ONCE, On Nathaly 03/20/24 at 0630, For 1 dose, Maximum acetaminophen dose from all sources = 75 mg/kg/day not to exceed 4 grams/day., Pre-procedure 06 ($Given - Provider: Lucille Davis RN) acetaminophen (TYLENOL) tablet 975 mg (CANCELED) 975 mg, Oral, EVERY 8 HOURS, First dose on Nathaly 03/20/24 at 1430, For 3 days, Administer for multimodal surgical pain management. Maximum acetaminophen dose from all sources = 75 mg/kg/day not to exceed 4 grams/day. 1338 ($Given - Provider: Carmella Vargas RN) acetaminophen (TYLENOL) tablet 975 mg 975 mg, Oral, EVERY 8 HOURS, First dose (after last reorder) on Nathaly 03/20/24 at 2200, For 8 doses, Administer for multimodal surgical pain management. Maximum acetaminophen dose from all sources = 75 mg/kg/day not to exceed 4 grams/day. 2138 ($Given - Provider: Qi Lewis, ANUM) 0536 ($Given - Provider: Qi Lewis, ANUM)1400 (Canceled Entry - Provider: Orders Generic Provider - Comment: Automatically canceled at discontinue of medication order) aspirin (ASA) EC tablet 325 mg 325 mg, Oral, DAILY, First dose (after last reorder) on Sun03/21/24 at 0900, Indications: VTE Prophylaxis, DO NOT CRUSH. DO NOT CRUSH. 0847 ($Given - Provider: Mayra Treadwell RN) ceFAZolin (ANCEF) 2 g in 100 mL D5W intermittent infusion (CANCELED) Routine, 2 g, Intravenous, EVERY 8 HOURS, First dose on Nathaly 03/20/24 at 1530, For 2 doses, First post-op dose due 8 hours after intra-op dose, see eMAR. , Indications: Perioperative Pharmacoprophylaxis 1639 ($New Bag - Provider: Carmella Vargas RN) ceFAZolin (ANCEF) 2 g in 100 mL D5W intermittent infusion (COMPLETED) Routine, 2 g, Intravenous, EVERY 8 HOURS, First dose (after last reorder) on Sun03/21/24 at 0100, For 1 dose, First post-op dose due 8 hours after intra-op dose, see eMAR. , Indications: Perioperative Pharmacoprophylaxis 0004 ($New Bag - Provider: Qi Lewis RN) ceFAZolin Sodium (ANCEF) injection 2 g (COMPLETED) Routine, 2 g, Intravenous, PRE-OP/PRE-PROCEDURE, Starting on Nathaly 03/20/24 at 0602, For 1 dose, Give first dose within 1 hour PRIOR to incision. If patient weight is greater than or equal to 120 kg increase dose to 3 g., Indications: Perioperative Pharmacoprophylaxis, Pre-procedure 0738 ($Given - Provider: Diana Hogan APRN CRNA) ketorolac (TORADOL) injection 15 mg (CANCELED) 15 mg, Intravenous, EVERY 6 HOURS, First dose on Nathaly 03/20/24 at 1530, For 4 doses, May continue use for up to 5 days MAX if order renewed. IF celecoxib (CELEBREX) was given pre-operatively, start ketorolac (TORADOL) 12 hours after celecoxib (CELEBREX) given. Can cause pain on injection. If ordered intravenously (IV) : administer through a running maintenance fluid over 1 minute followed by a flush. If patient complains of pain on injection, may dilute 15-30 mg in 5 mL and push over 1 to 2 minutes. 1448 ($Given - Provider: Carmella Vargas RN) ketorolac (TORADOL) injection 15 mg (COMPLETED) 15 mg, Intravenous, EVERY 6 HOURS, First dose (after last reorder) on Nathaly 24 at 2100, For 3 doses, May continue use for up to 5 days MAX if order renewed. IF celecoxib (CELEBREX) was given pre-operatively, start ketorolac (TORADOL) 12 hours after celecoxib (CELEBREX) given. Can cause pain on injection. If ordered intravenously (IV) : administer through a running maintenance fluid over 1 minute followed by a flush. If patient complains of pain on injection, may dilute 15-30 mg in 5 mL and push over 1 to 2 minutes. 2056 ($Given - Provider: Qi Lewis, RN) 030 ($Given - Provider: Qi Lewis, RN)0847 ($Given - Provider: Mayra Treadwell, RN) meloxicam (MOBIC) tablet 15 mg (COMPLETED) 15 mg, Oral, ONCE, On Nathaly 03/20/24 at 0630, For 1 dose, Give in pre-op, Pre-procedure 0624 ($Given - Provider: Lucille Davis RN) metoprolol tartrate (LOPRESSOR) tablet 25 mg 25 mg, Oral, 2 TIMES DAILY, First dose on Sun03/21/24 at 1130, Tablets can be crushed and given via enteral route. Hold for SBP <110 or HR < 60 1126 ($Given - Provider: Mayra Treadwell, RN) polyethylene glycol (MIRALAX) Packet 17 g 17 g, Oral, DAILY, First dose (after last reorder) on Sun03/21/24 at 0900, To prevent constipation. Mixed prescribed dose in 8 ounces of water, juice or soda. Administer daily starting at 0900 on POD 1. Hold for loose stools. 1 Packet = 17 grams. Mix each gram with at least 1/2 ounce (15 mL) of water - 8 ounces for 17 g dose, 4 ounces for 8.5 g dose, 2 ounces for 4 g dose. Follow with the same volume of water. Hold for loose stools unless being administered as part of a bowel prep regimen or bowel clean out. 0847 ($Given - Provider: Mayra Treadwell, RN) pregabalin (LYRICA) capsule 150 mg (COMPLETED) 150 mg, Oral, ONCE, On Nathaly 03/20/24 at 0630, For 1 dose, Give in pre-op., Pre-procedure 0624 ($Given - Provider: Lucille Davis, ANUM) ROPivacaine (NAROPIN) 5 MG/ML 300 mg, ketorolac (TORADOL) 30 mg, EPINEPHrine (ADRENALIN) 0.6 mg in sodium chloride 0.9 % 100 mL (ORTHO MIRIAM STANDARD DOSE) (COMPLETED) INTRA-ARTICULAR, WAREHOUSE CONSULTANT TO O.R., Starting on Nathaly 03/20/24 at 0602, For 1 dose, NOT FOR IV INJECTION. Used by provider at the end of surgery., Pre-procedure 0925 ($Given - Provider: Kai Diop MD) senna-docusate (SENOKOT-S/PERICOLACE) 8.6-50 MG per tablet 1 tablet (CANCELED) 1 tablet, Oral, 2 TIMES DAILY, First dose on Nathaly 03/20/24 at 1330, To prevent constipation. Hold for loose stools Hold for loose stools. 1339 ($Given - Provider: Carmella Vargas RN) senna-docusate (SENOKOT-S/PERICOLACE) 8.6-50 MG per tablet 1 tablet 1 tablet, Oral, 2 TIMES DAILY, First dose (after last reorder) on Nathaly 03/20/24 at 2100, To prevent constipation. Hold for loose stools Hold for loose stools. 2056 ($Given - Provider: Qi Lewis RN) 0847 ($Given - Provider: Mayra Treadwell, ANUM) sodium chloride (PF) 0.9% PF flush 3 mL 3 mL, Intracatheter, EVERY 8 HOURS, First dose (after last reorder) on Nathaly 03/20/24 at 2200, to lock peripheral IV dormant line 2138 (Not Given - Provider: Qi Lewis RN - Reason: IV Infusing) 0536 (Canceled Entry - Provider: Qi Lewis RN)1400 (Canceled Entry - Provider: Orders Generic Provider - Comment: Automatically canceled at discontinue of medication order) tranexamic acid (LYSTEDA) tablet 1,950 mg (COMPLETED) 1,950 mg, Oral, ONCE, On Nathaly 03/20/24 at 0630, For 1 dose, Administer with a sip of water in PRE OP area 90 minutes PRIOR to leaving Pre-op area., Pre-procedure 0624 ($Given - Provider: Luclile Davis, RN) Continuous Medication Order 03/19/2024 03/20/2024 03/21/2024 lactated ringers infusion (CANCELED) at 10 mL/hr, Intravenous, CONTINUOUS, Pre-procedure, Starting on Nathaly 03/20/24 at 0730, Until Nathaly 03/20/24 at 0952 0701 ($New Bag - Provider: Gerald Davis RN) lactated ringers infusion (CANCELED) at 100 mL/hr, Intravenous, CONTINUOUS, IF overnight stay, continue IV fluids until 0400 POD #1, then may saline lock if tolerating oral fluids. IF Day of Surgery Discharge, continue IV Fluids until one hour before discharge., Starting on Nathaly 03/20/24 at 1200, Until Nathaly 03/20/24 at 1944 1145 (Rate/Dose Verify - Provider: Carmella Vargas RN)1439 ($New Bag - Provider: Carmella Vargas RN) lactated ringers infusion at 100 mL/hr, Intravenous, CONTINUOUS, IF overnight stay, continue IV fluids until 0400 POD #1, then may saline lock if tolerating oral fluids. IF Day of Surgery Discharge, continue IV Fluids until one hour before discharge., Starting on Nathaly 03/20/24 at 2100, Until Sun03/21/24 at 1614 2057 ($New Bag - Provider: Qi Lewis RN) PRN Medication Order 03/19/2024 03/20/2024 03/21/2024 acetaminophen (TYLENOL) tablet 650 mg 650 mg, Oral, EVERY 4 HOURS PRN, other, For optimal non-opioid multimodal pain management to improve pain control., Starting on Sun03/23/24 at 0000, May give first dose 4 hours after last scheduled dose of acetaminophen (TYLENOL). Maximum acetaminophen dose from all sources = 75 mg/kg/day not to exceed 4 grams/day. benzocaine-menthol (CHLORASEPTIC) 6-10 MG lozenge 1 lozenge (CANCELED) 1 lozenge, Buccal, EVERY 1 HOUR PRN, sore throat, sore throat without fever, Starting on Nathaly 03/20/24 at 1154 1703 ($Given - Provider: Carmella M Vargas, RN) benzocaine-menthol (CHLORASEPTIC) 6-10 MG lozenge 1 lozenge 1 lozenge, Buccal, EVERY 1 HOUR PRN, sore throat, sore throat without fever, Starting on Nathaly 03/20/24 at 2036 2056 ($Given - Provider: Qi Lewis, ANUM) bisacodyl (DULCOLAX) suppository 10 mg 10 mg, Rectal, DAILY PRN, constipation, Use if Magnesium hydroxide (MILK of MAGNESIA) not effective after 24 hours. May discontinue if patient having bowel movement., Starting on Nathaly 03/20/24 at 2036, Hold for loose stools. calcium carbonate (TUMS) chewable tablet 500 mg (CANCELED) 500 mg, Oral, 4 TIMES DAILY PRN, heartburn, Starting on Nathaly 03/20/24 at 1154 1703 ($Given - Provider: Carmella Vargas RN) calcium carbonate (TUMS) chewable tablet 500 mg 500 mg, Oral, 4 TIMES DAILY PRN, heartburn, Starting on Nathaly 03/20/24 at 2036 diphenhydrAMINE (BENADRYL) capsule 25 mg 25 mg, Oral, EVERY 6 HOURS PRN, itching, anxiety, Starting on Nathaly 03/20/24 at 2036, Caution to be used when administering multiple Central Nervous System (SULKY DRIVER) depressing meds within a short time frame. fentaNYL (PF) (SUBLIMAZE) injection 25 mcg (CANCELED) 25 mcg, Intravenous, EVERY 5 MIN PRN, moderate pain, Give fentaNYL (SUBLIMAZE) first if HYDROmorphone (DILAUDID) also ordered., Starting on Nathaly 03/20/24 at 1008, Administer fentaNYL (SUBLIMAZE) for acute pain control. Move to HYDROmorphone (DILAUDID): - IF patient has received up to 200 mcg of fentaNYL (SUBLIMAZE) OR - IF patient has received 2 doses of fentaNYL (SUBLIMAZE) AND continues to have pain score greater than or equal to six (6) or is unable to participate in post op recovery due to pain. Wait 5 minutes AFTER last fentaNYL (SUBLIMAZE) dose before administering HYDROmorphone (DILADUDID). Postop Anesthesia Phase I only. Notify Provider to assess for uncontrolled pain or analgesic side effects. DO NOT revert back to fentanyl (SUBLIMAZE) after administering HYDROmorphone (DILAUDID)., PACU 1030 ($Given - Provider: Apple Moore RN)1040 ($Given - Provider: Apple Moore RN) HYDROmorphone (DILAUDID) injection 0.2 mg (CANCELED) 0.2 mg, Intravenous, EVERY 5 MIN PRN, moderate pain, Starting on Nathaly 03/20/24 at 1008, Use FentaNYL (SUBLIMAZE) first if ordered. Maximum total cumulative dose NOT to exceed 2 mg. DO NOT revert back to fentanyl (SUBLIMAZE) after administering HYDROmorphone (DILAUDID). Notify Provider to assess for uncontrolled pain or analgesic side effects., PACU 1052 ($Given - Provider: Apple Moore RN) HYDROmorphone (DILAUDID) injection 0.2 mg(Linked Group 1) 0.2 mg, Intravenous, EVERY 2 HOURS PRN, moderate pain, Starting on Nathaly 03/20/24 at 2036, IF patient unable to take oral pain medication or pain not controlled with oral analgesics. Hold IV PRN opioid dose for analgesic side effects. Notify provider to assess for uncontrolled pain or analgesic side effects. HYDROmorphone (DILAUDID) injection 0.4 mg(Linked Group 1) 0.4 mg, Intravenous, EVERY 2 HOURS PRN, severe pain, Starting on Nathaly 03/20/24 at 2036, IF patient unable to take oral pain medication or pain not controlled with oral analgesics. Hold IV PRN opioid dose for analgesic side effects. Notify provider to assess for uncontrolled pain or analgesic side effects. hydrOXYzine HCl (ATARAX) tablet 25 mg 25 mg, Oral, EVERY 6 HOURS PRN, other, adjuvant pain, Starting on Nathaly 03/20/24 at 2036 lidocaine (LMX4) cream Topical, EVERY 1 HOUR PRN, pain, with VAD insertion, Starting on Nathaly 03/20/24 at 2036, Apply at least 30 minutes prior to VAD insertion in divided doses as needed for size of site for insertion. MAX Dose: 2.5 g (?? of 5 g tube) Do NOT give if patient has a history of allergy to any local anesthetic or any grady product. Do NOT use both lidocaine intradermal/subcutaneous injection and the lidocaine cream on the same site. lidocaine 1 % 0.1-1 mL 0.1-1 mL, Other, EVERY 1 HOUR PRN, mild pain with VAD insertion, Starting on Nathaly 03/20/24 at 2036, MAX dose 1 mL subcutaneous OR intradermal along the side of the vein in divided doses as needed for VAD insertion. Do NOT give if patient has a history of allergy to any local anesthetic or any grady product. Do NOT use both lidocaine intradermal/subcutaneous injection and the lidocaine cream on the same site. magnesium hydroxide (MILK OF MAGNESIA) suspension 30 mL 30 mL, Oral, DAILY PRN, constipation, Use if preventive measures (senna-docusate, docusate, and polyethylene glycol) are not effective., Starting on Nathaly 03/20/24 at 2036, Shake well. Hold for loose stools. naloxone (NARCAN) injection 0.2 mg(Linked Group 2) 0.2 mg, Intravenous, EVERY 2 MIN PRN, opioid reversal, Starting on Sun03/20/24 at 2037, Administer intravenous route when available and notify provider when administered. For unintended sedation or respiratory depression if all of the below criteria are met: ~ respiratory rate LESS than or EQUAL to 8. ~SaO2 less than 92% and or/end-tidal CO2 is greater than 50. ~ the patient is receiving an opioid, has unintended sedations assessed as RASS (-3), and is currently not on mechanical ventilation. RASS scale moderate (-3) is movement or eye opening to voice but no eye contact. Patient Monitoring Once the patient has demonstrated a response to the naloxone, continue to monitor respiratory rate, depth, oxygen saturation and end-tidal CO2 (if available) every 15 minutes x 2, then every 30 minutes x 2, then every 1 hour x 1 after each naloxone dose. Consider transfer to ICU if patient respiratory parameters have not improved after 4 naloxone doses. naloxone (NARCAN) injection 0.2 mg(Linked Group 2) 0.2 mg, Intramuscular, EVERY 2 MIN PRN, opioid reversal, Starting on Nathaly 03/20/24 at 2037, Administer intramuscular if an intravenous route is not available and notify provider when administered. For unintended sedation or respiratory depression if all of the below criteria are met: ~ respiratory rate LESS than or EQUAL to 8. ~SaO2 less than 92% and or/end-tidal CO2 is greater than 50. ~ the patient is receiving an opioid, has unintended sedations assessed as RASS (-3), and is currently not on mechanical ventilation. RASS scale moderate (-3) is movement or eye opening to voice but no eye contact. Patient Monitoring Once the patient has demonstrated a response to the naloxone, continue to monitor respiratory rate, depth, oxygen saturation and end-tidal CO2 (if available) every 15 minutes x 2, then every 30 minutes x 2, then every 1 hour x 1 after each naloxone dose. Consider transfer to ICU if patient respiratory parameters have not improved after 4 naloxone doses. naloxone (NARCAN) injection 0.4 mg(Linked Group 2) 0.4 mg, Intravenous, EVERY 2 MIN PRN, opioid reversal, Starting on Nathaly 03/20/24 at 2037, Administer intravenous route when available and notify provider when administered. For unintended sedation or respiratory depression if all of the below criteria are met: ~ respiratory rate LESS than or EQUAL to 8. ~ SaO2 less than 92% and or/end-tidal CO2 is greater than 50. ~ the patient is receiving an opioid, has unintended sedation assessed as RASS (-4) or (-5) and patient is currently not on mechanical ventilation. RASS scale (-4) is deep sedation with no response to voice but movement or eye opening to physical stimulation. RASS scale (-5) is unarousable. Patient Monitoring Once the patient has demonstrated a response to the naloxone, continue to monitor respiratory rate, depth, oxygen saturation and end-tidal CO2 (if available) every 15 minutes x 2, then every 30 minutes x 2, then every 1 hour x 1 after each naloxone dose. Consider transfer to ICU if patient respiratory parameters have not improved after 4 naloxone doses. naloxone (NARCAN) injection 0.4 mg(Linked Group 2) 0.4 mg, Intramuscular, EVERY 2 MIN PRN, opioid reversal, Starting on Nathaly 03/20/24 at 2037, Administer intramuscular if an intravenous route is not available and notify provider when administered. For unintended sedation or respiratory depression if all of the below criteria are met: ~ respiratory rate LESS than or EQUAL to 8. ~ SaO2 less than 92% and or/end-tidal CO2 is greater than 50. ~ the patient is receiving an opioid, has unintended sedation assessed as RASS (-4) or (-5) and patient is currently not on mechanical ventilation. RASS scale (-4) is deep sedation with no response to voice but movement or eye opening to physical stimulation. RASS scale (-5) is unarousable. Patient Monitoring Once the patient has demonstrated a response to the naloxone, continue to monitor respiratory rate, depth, oxygen saturation and end-tidal CO2 (if available) every 15 minutes x 2, then every 30 minutes x 2, then every 1 hour x 1 after each naloxone dose. Consider transfer to ICU if patient respiratory parameters have not improved after 4 naloxone doses. ondansetron (ZOFRAN ODT) ODT tab 4 mg(Linked Group 3) 4 mg, Oral, EVERY 6 HOURS PRN, nausea, vomiting, Starting on Nathaly 03/20/24 at 2036, This is Step 1 of nausea and vomiting management. If nausea not resolved in 15 minutes, go to Step 2 prochlorperazine (COMPAZINE). Do not push through foil backing. Peel back foil and gently remove. Place on tongue immediately. Administration with liquid unnecessary With dry hands, peel back foil backing and gently remove tablet. Do not push oral disintegrating tablet through foil backing. Administer immediately on tongue and oral disintegrating tablet dissolves in seconds, then swallow with saliva. Liquid not required. ondansetron (ZOFRAN) injection 4 mg(Linked Group 3) 4 mg, Intravenous, EVERY 6 HOURS PRN, nausea, vomiting, Administer over 2-5 Minutes, Starting on Nathaly 03/20/24 at 2036, This is Step 1 of nausea and vomiting management. If nausea not resolved in 15 minutes, go to Step 2 prochlorperazine (COMPAZINE). oxyCODONE (ROXICODONE) tablet 10 mg (CANCELED)(Linked Group 4) 10 mg, Oral, EVERY 4 HOURS PRN, severe pain, Starting on Nathaly 03/20/24 at 1154, Hold oral PRN dose for analgesic side effects. Notify provider to assess for uncontrolled pain or analgesic side effects. Hold while on IV PITCHING COACH or with regular IV opioid dosing. 1242 (See Alternative - Provider: Carmella Vargas RN)1639 ($Given - Provider: Carmella Vargas RN) oxyCODONE (ROXICODONE) tablet 10 mg(Linked Group 5) 10 mg, Oral, EVERY 4 HOURS PRN, severe pain, Starting on Nathaly 03/20/24 at 2036, Hold oral PRN dose for analgesic side effects. Notify provider to assess for uncontrolled pain or analgesic side effects. Hold while on IV PITCHING COACH or with regular IV opioid dosing. 2137 (See Alternative - Provider: Qi Lewis RN) 0847 ($Given - Provider: Mayra Treadwell, RN) oxyCODONE (ROXICODONE) tablet 5 mg (CANCELED)(Linked Group 4) 5 mg, Oral, EVERY 4 HOURS PRN, moderate pain, Starting on Nathaly 03/20/24 at 1154, Hold oral PRN dose for analgesic side effects. Notify provider to assess for uncontrolled pain or analgesic side effects. Hold while on IV PITCHING COACH or with regular IV opioid dosing. 1242 ($Given - Provider: Carmella Vargas RN)1639 (See Alternative - Provider: Carmella Vargas, RN) oxyCODONE (ROXICODONE) tablet 5 mg(Linked Group 5) 5 mg, Oral, EVERY 4 HOURS PRN, moderate pain, Starting on Nathaly 03/20/24 at 2036, Hold oral PRN dose for analgesic side effects. Notify provider to assess for uncontrolled pain or analgesic side effects. Hold while on IV PITCHING COACH or with regular IV opioid dosing. 2137 ($Given - Provider: Qi Lewis RN) 0847 (See Alternative - Provider: Mayra Treadwell, RN) prochlorperazine (COMPAZINE) injection 10 mg(Linked Group 6) 10 mg, Intravenous, EVERY 6 HOURS PRN, nausea, vomiting, Administer over 1-2 Minutes, Starting on Sun03/20/24 at 2036, This is Step 2 of nausea and vomiting management. If nausea not resolved in 15-30 minutes, Notify provider. prochlorperazine (COMPAZINE) tablet 10 mg(Linked Group 6) 10 mg, Oral, EVERY 6 HOURS PRN, nausea, vomiting, Starting on Sun03/20/24 at 2036, This is Step 2 of nausea and vomiting management. If nausea not resolved in 15-30 minutes, Notify provider. sodium chloride (PF) 0.9% PF flush 3 mL 3 mL, Intracatheter, EVERY 1 MIN PRN, line flush, other, to ensure patency or to lock dormant line, Starting on Sun03/20/24 at 2036 sodium chloride 0.9% (bottle) irrigation (CANCELED) PRN, Starting on Nathaly 03/20/24 at 0822, Intra-procedure 0822 ($Given - Provider: Kai Diop MD - Comment: Table solution) sodium chloride 0.9% irrigation (bag) (CANCELED) PRN, Starting on Nathaly 03/20/24 at 0822, Intra-procedure 0822 ($Given - Provider: Kai Diop MD) vancomycin (VANCOCIN) topical powder (CANCELED) PRN, Starting on Nathaly 03/20/24 at 0925, Intra-procedure 0925 ($Given - Provider: Kai Diop MD) Linked Groups Order Group 1: HYDROmorphone (DILAUDID) injection 0.2 mgJump to med 0.2 mg, Intravenous, EVERY 2 HOURS PRN, moderate pain, Starting on Nathaly 03/20/24 at 2036, IF patient unable to take oral pain medication or pain not controlled with oral analgesics. Hold IV PRN opioid dose for analgesic side effects. Notify provider to assess for uncontrolled pain or analgesic side effects. Or HYDROmorphone (DILAUDID) injection 0.4 mgJump to med 0.4 mg, Intravenous, EVERY 2 HOURS PRN, severe pain, Starting on Nathaly 03/20/24 at 2036, IF patient unable to take oral pain medication or pain not controlled with oral analgesics. Hold IV PRN opioid dose for analgesic side effects. Notify provider to assess for uncontrolled pain or analgesic side effects. Group 2: naloxone (NARCAN) injection 0.2 mgJump to med 0.2 mg, Intravenous, EVERY 2 MIN PRN, opioid reversal, Starting on Nathaly 03/20/24 at 2037, Administer intravenous route when available and notify provider when administered. For unintended sedation or respiratory depression if all of the below criteria are met: ~ respiratory rate LESS than or EQUAL to 8. ~SaO2 less than 92% and or/end-tidal CO2 is greater than 50. ~ the patient is receiving an opioid, has unintended sedations assessed as RASS (-3), and is currently not on mechanical ventilation. RASS scale moderate (-3) is movement or eye opening to voice but no eye contact. Patient Monitoring Once the patient has demonstrated a response to the naloxone, continue to monitor respiratory rate, depth, oxygen saturation and end-tidal CO2 (if available) every 15 minutes x 2, then every 30 minutes x 2, then every 1 hour x 1 after each naloxone dose. Consider transfer to ICU if patient respiratory parameters have not improved after 4 naloxone doses. Or naloxone (NARCAN) injection 0.4 mgJump to med 0.4 mg, Intravenous, EVERY 2 MIN PRN, opioid reversal, Starting on Nathaly 03/20/24 at 2037, Administer intravenous route when available and notify provider when administered. For unintended sedation or respiratory depression if all of the below criteria are met: ~ respiratory rate LESS than or EQUAL to 8. ~ SaO2 less than 92% and or/end-tidal CO2 is greater than 50. ~ the patient is receiving an opioid, has unintended sedation assessed as RASS (-4) or (-5) and patient is currently not on mechanical ventilation. RASS scale (-4) is deep sedation with no response to voice but movement or eye opening to physical stimulation. RASS scale (-5) is unarousable. Patient Monitoring Once the patient has demonstrated a response to the naloxone, continue to monitor respiratory rate, depth, oxygen saturation and end-tidal CO2 (if available) every 15 minutes x 2, then every 30 minutes x 2, then every 1 hour x 1 after each naloxone dose. Consider transfer to ICU if patient respiratory parameters have not improved after 4 naloxone doses. Or naloxone (NARCAN) injection 0.2 mgJump to med 0.2 mg, Intramuscular, EVERY 2 MIN PRN, opioid reversal, Starting on Nathaly 03/20/24 at 2037, Administer intramuscular if an intravenous route is not available and notify provider when administered. For unintended sedation or respiratory depression if all of the below criteria are met: ~ respiratory rate LESS than or EQUAL to 8. ~SaO2 less than 92% and or/end-tidal CO2 is greater than 50. ~ the patient is receiving an opioid, has unintended sedations assessed as RASS (-3), and is currently not on mechanical ventilation. RASS scale moderate (-3) is movement or eye opening to voice but no eye contact. Patient Monitoring Once the patient has demonstrated a response to the naloxone, continue to monitor respiratory rate, depth, oxygen saturation and end-tidal CO2 (if available) every 15 minutes x 2, then every 30 minutes x 2, then every 1 hour x 1 after each naloxone dose. Consider transfer to ICU if patient respiratory parameters have not improved after 4 naloxone doses. Or naloxone (NARCAN) injection 0.4 mgJump to med 0.4 mg, Intramuscular, EVERY 2 MIN PRN, opioid reversal, Starting on Nathaly 03/20/24 at 2037, Administer intramuscular if an intravenous route is not available and notify provider when administered. For unintended sedation or respiratory depression if all of the below criteria are met: ~ respiratory rate LESS than or EQUAL to 8. ~ SaO2 less than 92% and or/end-tidal CO2 is greater than 50. ~ the patient is receiving an opioid, has unintended sedation assessed as RASS (-4) or (-5) and patient is currently not on mechanical ventilation. RASS scale (-4) is deep sedation with no response to voice but movement or eye opening to physical stimulation. RASS scale (-5) is unarousable. Patient Monitoring Once the patient has demonstrated a response to the naloxone, continue to monitor respiratory rate, depth, oxygen saturation and end-tidal CO2 (if available) every 15 minutes x 2, then every 30 minutes x 2, then every 1 hour x 1 after each naloxone dose. Consider transfer to ICU if patient respiratory parameters have not improved after 4 naloxone doses. Group 3: ondansetron (ZOFRAN ODT) ODT tab 4 mgJump to med 4 mg, Oral, EVERY 6 HOURS PRN, nausea, vomiting, Starting on Nathaly 03/20/24 at 2036, This is Step 1 of nausea and vomiting management. If nausea not resolved in 15 minutes, go to Step 2 prochlorperazine (COMPAZINE). Do not push through foil backing. Peel back foil and gently remove. Place on tongue immediately. Administration with liquid unnecessary With dry hands, peel back foil backing and gently remove tablet. Do not push oral disintegrating tablet through foil backing. Administer immediately on tongue and oral disintegrating tablet dissolves in seconds, then swallow with saliva. Liquid not required. Or ondansetron (ZOFRAN) injection 4 mgJump to med 4 mg, Intravenous, EVERY 6 HOURS PRN, nausea, vomiting, Administer over 2-5 Minutes, Starting on Nathaly 03/20/24 at 2036, This is Step 1 of nausea and vomiting management. If nausea not resolved in 15 minutes, go to Step 2 prochlorperazine (COMPAZINE). Group 4: oxyCODONE (ROXICODONE) tablet 5 mg (CANCELED)Jump to med 5 mg, Oral, EVERY 4 HOURS PRN, moderate pain, Starting on Nathaly 03/20/24 at 1154, Hold oral PRN dose for analgesic side effects. Notify provider to assess for uncontrolled pain or analgesic side effects. Hold while on IV PITCHING COACH or with regular IV opioid dosing. Or oxyCODONE (ROXICODONE) tablet 10 mg (CANCELED)Jump to med 10 mg, Oral, EVERY 4 HOURS PRN, severe pain, Starting on Nathaly 03/20/24 at 1154, Hold oral PRN dose for analgesic side effects. Notify provider to assess for uncontrolled pain or analgesic side effects. Hold while on IV PITCHING COACH or with regular IV opioid dosing. Group 5: oxyCODONE (ROXICODONE) tablet 5 mgJump to med 5 mg, Oral, EVERY 4 HOURS PRN, moderate pain, Starting on Nathaly 03/20/24 at 7, Hold oral PRN dose for analgesic side effects. Notify provider to assess for uncontrolled pain or analgesic side effects. Hold while on IV PITCHING COACH or with regular IV opioid dosing. Or oxyCODONE (ROXICODONE) tablet 10 mgJump to med 10 mg, Oral, EVERY 4 HOURS PRN, severe pain, Starting on Nathaly 03/20/24 at 2036, Hold oral PRN dose for analgesic side effects. Notify provider to assess for uncontrolled pain or analgesic side effects. Hold while on IV PITCHING COACH or with regular IV opioid dosing. Group 6: prochlorperazine (COMPAZINE) injection 10 mgJump to med 10 mg, Intravenous, EVERY 6 HOURS PRN, nausea, vomiting, Administer over 1-2 Minutes, Starting on Nathaly 03/20/24 at 2036, This is Step 2 of nausea and vomiting management. If nausea not resolved in 15-30 minutes, Notify provider. Or prochlorperazine (COMPAZINE) tablet 10 mgJump to med 10 mg, Oral, EVERY 6 HOURS PRN, nausea, vomiting, Starting on Nathaly 24 at 2036, This is Step 2 of nausea and vomiting management. If nausea not resolved in 15- 30 minutes, Notify provider. documented in this encounter Care Teams Defective Cigarette Slitter Relationship Specialty Start Date End Date Lybarger, Latisha, PA-C [facility] [address] [place] [address] PCP - General Physician Torch Shearer 04/14/20 Chadwick Jensen NP [address] [place] [address] Nurse Practitioner Cardiovascular Disease 11/15/22 Rahul Ford MD Cardiovascular Disease 01/24/24 Rahul Ford MD Assigned Heart and Vascular Provider 02/24/24 documented as of this encounter
--- OUTSIDE RECORDS SUMMARY | 2024-03-27 15:41 | XMS_ITS | Referral Summary ---
Author Organization [place] Address [facility] [place] [address] Care Team Providers Care Inseam Trimmer Name Role Phone Yamila Dave PA-C Primary Care Provider Chadwick Jensen NP Unavailable [phone] Rahul Ford MD Unavailable Un available Rahul Ford MD Unavailable Un available Encounters Date Type Department Care Team Description 03/20/2024 5:29 AM CDT - 03/21/2024 1:10 PM CDT Hospital Encounter [facility] [address] [phone] Kong Diop MD Status post total hip replacement, left (Primary Dx) Discharge Disposition: Home or Self Care 03/20/2024 Travel 03/20/2024 7:30 AM CDT - 03/20/2024 11:00 AM CDT Surgery [facility] [address] [place] [phone] Kong Diop MD LEFT TOTAL HIP ARTHROPLASTY DIRECT ANTERIOR APPROACH WITH ORTHOGRID 03/20/2024 7:38 AM CDT Anesthesia Event [facility] [address] [place] [phone] Brayan Goodwin MD 01/30/2024 12:45 PM CDT Office Visit [facility] [address] [place] [address] Rahul Ford MD Coronary artery disease involving lime coronary artery of lime heart without angina pectoris; Benign essential hypertension; Palpitations 01/29/2024 Travel 01/29/2024 8:45 AM CDT Lab [facility] [address] [place] [address] Chadwick Jensen NP Coronary artery disease involving lime coronary artery of lime heart without angina pectoris; Benign essential hypertension; Palpitations 01/25/2024 Travel 01/07/2024 External Order Results [facility] [address] [place] [address] Outside, Provider from Last 3 Months Allergies Active Allergy Reactions Criticality Noted Date Comments Bupropion Hives 11/18/2020 Paroxetine Rash Low 09/26/2006 Sertraline Rash Low 02/19/2012 Sulfa Antibiotics Rash Low 01/25/2020 Medications Medication Sig Dispensed Refills Start Date End Date Status citalopram (CELEXA) 20 MG tablet Take 20 mg by mouth daily 04/07/2020 Active Multiple Vitamin (MULTI-VITAMINS) TABS Take by mouth daily Active golimumab (SIMPONI) 50 MG/0.5ML auto-injector pen 50 mg every 28 days Active omeprazole (PRILOSEC) [address] capsule 20 mg daily Active atorvastatin (LIPITOR) 40 MG tabletIndications: Coronary artery disease involving lime coronary artery of lime heart without angina pectoris,Palpitati ons Take 1 tablet (40 mg) by mouth daily 90 tablet 3 04/06/2022 Active losartan (COZAAR) 100 MG tabletIndications: Benign essential hypertension Take 1 tablet (100 mg) by mouth daily 90 tablet 02/23/2023 Active metoprolol tartrate (LOPRESSOR) 25 MG tabletIndications: Coronary artery disease involving lime coronary artery of lime heart without angina pectoris,Palpitati ons Take 1 tablet (25 mg) by mouth 2 times daily 180 tablet 02/23/2023 Active aspirin (ASA) 325 MG EC tabletIndications: Status post total hip replacement, left Take 1 tablet (325 mg) by mouth daily for 42 days 42 tablet 03/20/2024 4 Active senna-docusate (SENOKOT-S/PERICOL JOSE) 8.6-50 MG tabletIndications: Status post total hip replacement, left Take 1-2 tablets by mouth 2 times daily Take while on oral narcotics to prevent or treat constipation. 30 tablet 03/20/2024 Active acetaminophen (TYLENOL) 325 MG tabletIndications: Status post total hip replacement, left Take 3 tablets (975 mg) by mouth every 6 hours as needed for mild pain 100 tablet 03/20/2024 Active meloxicam (MOBIC) 15 MG tabletIndications: Status post total hip replacement, left Take 1 tablet (15 mg) by mouth daily for 42 days 42 tablet 03/20/2024 4 Active oxyCODONE (ROXICODONE) 5 MG tabletIndications: Status post total hip replacement, left Take 0.5-1 tablets (2.5-5 mg) by mouth every 6 hours as needed for pain Take 1/2 tablet to 1 tablet every 4-6 hours as needed for moderate to advanced pain. NOT TO EXCEED 6 TABLETS IN 1 DAY 30 tablet 03/21/2024 Active ASPIRIN LOW DOSE 81 MG EC tabletIndications: Coronary artery disease involving lime coronary artery of lime heart without angina pectoris Take 1 tablet (81 mg) by mouth daily 90 tablet 3 04/07/2022 4 Discontinue d(Stop at Discharge) azaTHIOprine 100 MG TABS Take 100 mg by mouth daily 01/25/2024 4 Discontinue d(Med Rec(No AVS / No eCancel)) spironolactone (ALDACTONE) 25 MG tablet Take 25 mg by mouth daily 01/24/2023 4 Discontinue d(Med Rec(No AVS / No eCancel)) acetaminophen (TYLENOL) 500 MG tablet Take 500-1,000 mg by mouth every 6 hours as needed for mild pain 4 Discontinue d(Stop at Discharge) Active Problems Problem Noted Date Diagnosed Date Status post left hip replacement 03/20/2024 Coronary artery disease 04/03/2020 Essential hypertension 01/08/2017 [...] Mass Index 34.44 03/20/2024 6:12 AM CDT Plan of Treatment Upcoming Encounters Date Type Department Care Team (Latest Contact Info) Description 07/24/2024 7:30 AM FIELD RADIO TECHNICIAN Hospital Encounter [facility] [address] [place] [address] Kong Diop MD [facility] [address] [place] [address] 07/24/2024 7:30 AM FIELD RADIO TECHNICIAN - 07/24/2024 11:00 AM FIELD RADIO TECHNICIAN [facility] [address] [place] [phone] Kong Diop MD [facility] [address] [place] [address] RIGHT TOTAL HIP ARTHROPLASTY DIRECT ANTERIOR APPROACH WITH ORTHO GRID Scheduled Procedures Name Priority Associated Diagnoses Date/Ti me ARTHROPLASTY, HIP, TOTAL, DIRECT ANTERIOR APPROACH, USING ORTHOGRID Degenerative joint disease (DJD) of hip 07/24/2024 7:30 AM FIELD RADIO TECHNICIAN Medical Devices Implanted Type Area Asset Card Clerk Device Identifier Shelf Expiration Date Model / Serial / Lot Imp Bellmawr Hole Eliminator Hip Depuy Duraloc 1246-03-000 - [id number] Implanted:Qty : 1 on 03/20/2024 by Kong Diop MD at [facility] Metallic Hardware/An chor Left: Hip [employer] [id number] 01/31/2034 [id number] / / [id number] Imp Scr Bone Can Jose 6.5x35mm 1217-35-500 - [id number] Implanted:Qty : 1 on 03/20/2024 by Kong Diop MD at [facility] Metallic Hardware/An chor Left: Hip [employer] [id number] 10/31/2032 [id number] / / [id number] Imp Scr Bone Can Jose 6.5x20mm 1217-20-500 - [id number] Implanted:Qty : 1 on 03/20/2024 by Kong Diop MD at [facility] Metallic Hardware/An chor Left: Hip [employer] [id number] 12/31/2033 [id number] / / [id number] Imp Cup Jose [place] 52mm 1217-22-052 - [id number] Implanted:Qty : 1 on 03/20/2024 by Kong Diop MD at [facility] Total Joint Component/I nsert Left: Hip [employer] [id number] 12/31/2033 [id number] / / [id number] Imp Insert Hip Depuy [place] Altrx [id number] 1221-36-052 - [id number] Implanted:Qty : 1 on 03/20/2024 by Kong Diop MD at [facility] Total Joint Component/I nsert Left: Hip [employer] [id number] 01/01/2028 1221-36-052 / / [id number] Imp Stem Fem Depuy Actis Collar Hi-Offset Sz 2mm - [id number] Implanted:Qty : 1 on 03/20/2024 by Kong Diop MD at [facility] Total Joint Component/I nsert Left: Hip [employer] [id number] / / Imp Head Femoral Depuy Ceramic 36mm +1.5mm 1365-36-310 - [id number] Implanted:Qty : 1 on 03/20/2024 by Kong Diop MD at [facility] Total Joint Component/I nsert Left: Hip [employer] [id number] 12/31/2028 [id number] / / [id number] Procedures Procedure Name Priority Date/Time Associated Diagnosis [...] W STILLS Routine 03/20/2024 9:31 AM CDT ANE AIRWAY ETT PERFORMABLE Routine 03/20/2024 7:48 AM CDT ARTHROPLASTY, HIP, TOTAL, DIRECT ANTERIOR APPROACH, USING ORTHOGRID 03/20/2024 7:38 AM CDT Degenerative joint disease of left hip Special Needs Pt verified procedure and laterality: LEFT*htn, cad, afib, nstemi(2019)-asaREQUESTING 180MINS CREATININE Add-On 03/20/2024 7:11 AM CDT GLUCOSE STAT 03/20/2024 7:11 AM CDT POTASSIUM STAT 03/20/2024 7:11 AM CDT EKG CARDIAC - HIM SCAN 02/28/2024 12:00 AM CDT EKG CARDIAC - HIM SCAN 02/28/2024 12:00 AM CDT EKG CARDIAC - HIM SCAN 02/28/2024 12:00 AM CDT EKG 12-LEAD COMPLETE W/READ - CLINICS Routine 01/30/2024 Coronary artery disease involving lime coronary artery of lime heart without angina pectoris Benign essential hypertension Palpitations LIPID REFLEX TO DIRECT LDL PANEL Routine 01/29/2024 8:56 AM CDT Coronary artery disease involving lime coronary artery of lime heart without angina pectoris Benign essential hypertension Palpitations BASIC METABOLIC PANEL Routine 01/29/2024 8:56 AM CDT Coronary artery disease involving lime coronary artery of lime heart without angina pectoris Benign essential hypertension Palpitations ERYTHROCYTE SEDIMENTATION RATE AUTO Routine 01/07/2024 2:50 PM CDT CRP INFLAMMATION Routine 01/07/2024 2:50 PM CDT TSH Routine 01/07/2024 2:50 PM CDT HOLTER MONITOR CARDIAC - HIM SCAN 01/07/2024 12:00 AM CDT EKG CARDIAC - HIM SCAN 01/07/2024 12:00 AM CDT XRAY IMAGING - HIM SCAN 01/07/2024 12:00 AM CDT MAMMOGRAM - HIM SCAN Routine 08/24/2020 from Last 3 Months or Most Recently Relevant to Health Maintenance Results * Lactic acid whole blood (03/21/2024 1:24 AM CDT) Only the most recent of2 resultswithin the time period is included. Lactic Acid 1.8 0.7 - 2.0 mmol/L 03/21/2024 1:33 AM CDT LABORATORY Blood STRUCTURE OF RIGHT UPPER LIMB / Unknown Venipuncture / Unknown 03/21/2024 1:24 AM CDT 03/21/2024 1:32 AM CDT Jose Angel Villagomez MD LAB - BLOOD ORDERAB LES Performing Organization Address City/[facility]/ZIP Co de Phone Number [facility] [address], [address] [place] [address], [place] [phone] * (ABNORMAL) Lactic Acid Whole Blood w/ 1x repeat in 2 hrs when >2 (03/20/2024 10:40 PM CDT) Only the most recent of2 resultswithin the time period is included. Lactic Acid, Initial 2.5(H) 0.7 - 2.0 mmol/L 03/20/2024 11:05 PM CDT LABORATORY Blood STRUCTURE OF RIGHT HAND / Unknown Venipuncture / Unknown 03/20/2024 10:40 PM CDT 03/20/2024 10:49 PM CDT Jose Angel Villagomez MD LAB - BLOOD ORDERAB LES [facility] [address], [address] [place] [address], [place] [phone] * XR Pelvis w Hip Port Left 1 View (03/20/2024 11:20 AM CDT) Anatomical Region Laterality Modality Abdomen/Pelvis Left Digital Radiogra phy Impressions 03/20/2024 11:25 AM CDT IMPRESSION: Status post recent left total hip arthroplasty. No immediate hardware complication. Expected postsurgical soft tissue edema and subcutaneous emphysema. No acute fracture or malalignment. LB TINEO MD SYSTEM ID: ??[id number] Narrative 03/20/2024 11:25 AM CDT XR PELVIS [...] or malalignment. LB TINEO MD SYSTEM ID: [id number] Kong Diop MD IMG DIAGNOSTIC IMAGI NG ORDERABLES * XR Surgery DULCE L/T 5 Min Fluoro w Stills (03/20/2024 9:31 AM CDT) Anatomical Region Laterality Modality Abdomen/Pelvis Radio Fluoroscop y Impressions 03/20/2024 9:33 AM CDT IMPRESSION: Intraprocedural spot films demonstrate placement of a left total hip arthroplasty. Please reference the surgical report for further details. LB TINEO MD SYSTEM ID: ??[id number] Narrative 03/20/2024 9:33 AM CDT XR SURGERY [...] further details. LB TINEO MD SYSTEM ID: [id number] Kong Diop MD IMG DIAGNOSTIC IMAGI NG ORDERABLES * ANE AIRWAY ETT PERFORMABLE (03/20/2024 7:48 AM CDT) Narrative Diana Hogan APRN APPEALS NURSE - 03/20/2024 7:48 AM CDT Diana Hogan APRN APPEALS NURSE ? 03/20/2024 ??8:05 AM Airway ? Patient location during procedure: OR ? Procedure Start/Stop Times: 03/20/2024 7:48 AM Staff - ? Anesthesiologist: ??Brayan Goodwin MD ? APPEALS NURSE: Diana Hogan APRN CRNA ? Other Anesthesia Staff: Rubi Franks RN ? Performed By: SRNA and with CRNAs ? Procedure performed by resident/fellow/APPEALS NURSE in presence of a teaching physician. Consent for Airway ? Urgency: elective Indications and Patient Condition ? Indications for airway management: liyah-procedural ? Induction type:intravenous ? Mask difficulty assessment: 1 - vent by mask Final Airway Details ? Final airway type: endotracheal airway ? Successful airway: ETT - single and Oral Endotracheal Airway Details ? ETT size (mm): 7.0 ? Cuffed: yes ? Successful intubation technique: video laryngoscopy ? VL Blade Size: Zabala 3 ? Grade View of Cords: 1 ? Adjucts: stylet ? Position: Right ? Measured from: lips ? Secured at (cm): 21 ? Bite block used: None Post intubation assessment ? Placement verified by: capnometry and chest rise ? Number of attempts at approach: 1 ? Number of other approaches attempted: 0 ? Secured with: tape ? Ease of procedure: easy ? Dentition: Intact and Unchanged Medication(s) Administered Medication Administration Time: 03/20/2024 7:48 AM Brayan Goodwin MD OR ANESTHESIA * Potassium (03/20/2024 7:11 AM CDT) Potassium 4.1 3.4 - 5.3 mmol/L 03/20/2024 7:52 AM CDT LABORATORY Blood STRUCTURE OF RIGHT UPPER LIMB / Unknown Venipuncture / Unknown 03/20/2024 7:11 AM CDT 03/20/2024 7:31 AM CDT Brayan Goodwin MD LAB - BLOOD ORDERA BLES LABORATORY [facility] [address], [address] [place] [address], [facility] [phone] * Creatinine (03/20/2024 7:11 AM CDT) Creatinine 0.77 0.51 - 0.95 mg/dL 03/20/2024 7:49 PM CDT LABORATORY GFR Estimate 87 >60 mL/min/1.7 3m2 03/20/2024 7:49 PM CDT LABORATORY Comment:eGFR calculated 2020 CKD-EPI equation. Blood STRUCTURE OF RIGHT UPPER LIMB / Unknown Venipuncture / Unknown 03/20/2024 7:11 AM CDT 03/20/2024 7:31 AM CDT Kong Diop MD LAB - BLOOD ORDERABL ES LABORATORY [facility] [address], [address] [place] [address], [place] [phone] * Glucose (03/20/2024 7:11 AM CDT) Glucose 98 70 - 99 mg/dL 03/20/2024 7:52 AM CDT LABORATORY Patient Fasting > 8hrs? Yes 03/20/2024 7:52 AM CDT LABORATORY Blood STRUCTURE OF RIGHT UPPER LIMB / Unknown Venipuncture / Unknown 03/20/2024 7:11 AM CDT 03/20/2024 7:31 AM CDT Brayan Goodwin MD LAB - BLOOD ORDERA BLES LABORATORY [facility] [address], [address] [place] [address], [facility] [phone] * EKG Cardiac - HIM Scan (02/28/2024 12:00 AM CDT) Only the most recent of4 resultswithin the time period is included. 02/28/2024 Provider Outside ECG ORDERABLES * EKG 12-lead complete w/read - Clinics [...] NP LAB - BLOOD ORDERABL ES LABORATORY [facility] [address] [place] [address] LABORATORY [facility] Acute Care Lab [address] Lab (1st floor, no room number) [place] [address] * Basic metabolic panel (01/29/2024 8:56 AM CDT) [facility] Sodium 141 135 - 145 mmol/L 01/29/2024 10:01 AM T LABORATORY Comment:Reference intervals for this test were [...] NP LAB - BLOOD ORDERABL ES LABORATORY [facility] Lab [address] Lab (1st floor, no room number) [place] [address] * TSH (01/07/2024 2:50 PM CDT) TSH (External) 2.290 0.270 - 4.200 uIU/mL NON-INTERFACED (ONBASE SCANS) Blood BLOOD SPECIMEN / Unknown 01/07/2024 2:50 PM CDT Narrative ABELARDO PFT - 01/25/2024 2:26 PM CDT Verified [...] - BLOOD ORDERABL ES Performing Organization Address City/[facility]/ZIP Co de Phone Number BREEZE PFT NON-INTERFACED (ONBASE SCANS) * (ABNORMAL) CRP inflammation (01/07/2024 2:50 PM CDT) CRP Inflammation (External) <0.5(L) 0.5 - 1.0 mg/dL NON-INTERFACE D (ONBASE SCANS) Blood BLOOD SPECIMEN / Unknown 01/07/2024 2:50 PM CDT Narrative BREEZE PFT - 01/07/2024 2:50 PM CDT Verified by Carmella Munroe on 01/25/2024. Provider Outside LAB - BLOOD ORDERABL ES Performing Organization Address [facility] Co de Phone Number BREEZE PFT NON-INTERFACED (ONBASE SCANS) * Xray Imaging - HIM Scan (01/07/2024 12:00 AM CDT) Anatomical Region Laterality Modality Other 01/07/2024 Provider Outside IMG DIAGNOSTIC IMAGI NG ORDERABLES * Holter Monitor Cardiac - HIM Scan (01/07/2024 12:00 AM CDT) 01/07/2024 Provider Outside ECG ORDERABLES * Mammogram - HIM Scan (08/24/2020) Negative Anatomical Region Laterality Modality Other Provider Outside IMG MAMMOGRAPHY ORDE RABLES from Last 3 Months or Most Recently Relevant to Health Maintenance Advance Directives For more information, please contact: [phone] * Full Code (Latest Code Status on File) Date Activated Date Inactivated Comments 03/20/2024 11:54 AM 03/20/2024 7:44 PM All basic a nd advanced life-sustaining interventions are performed as appropriate Question Answer Comments Code status determined by: Unable to det ermine; FULL CODE until documents or legal decision maker available Care Teams Inseam Trimmer Relationship Specialty Start Date End Date Yamila Dave PA-C [facility] [address] [place] [address] PCP - General Physician Risk Control Representative 04/14/20 Chadwick Jensen NP [address] [place] [address] Nurse Practitioner Cardiovascular Disease 11/15/22 Rahul Ford MD MD Cardiovascular Disease 01/24/24 Rahul Ford MD Assigned Heart and Vascular Provider 02/24/24
--- OUTSIDE RECORDS SUMMARY | 2024-03-27 15:41 | XMS_ITS | Clinical Summary ---
Author Organization [place] Address [facility] [place] [address] Care Team Providers Care Graphic Design Assistant Name Role Phone Yamila Dave PA-C Primary Care Provider Chadwick Jensen NP Unavailable [phone] Rahul Ford MD Unavailable Un available Rahul [...] 40 MG tabletIndications: Coronary artery disease involving ewiiaapaayp coronary artery of ewiiaapaayp heart without angina pectoris,Palpitati ons Take 1 tablet (40 mg) by mouth daily 90 tablet 3 04/06/2022 Active losartan (COZAAR) 100 MG tabletIndications: Benign essential hypertension Take 1 tablet (100 mg) by mouth daily 90 tablet 02/23/2023 Active metoprolol tartrate (LOPRESSOR) 25 MG tabletIndications: Coronary artery disease involving ewiiaapaayp coronary artery of ewiia[place]ayp heart without angina pectoris,Palpitati ons Take 1 [...] MG EC tabletIndications: Coronary artery disease involving ewiiaapaayp coronary artery of ewiia[place]p heart without angina pectoris Take 1 tablet [...] Date Type Department Care Team Description 03/20/2024 7:38 AM CDT Anesthesia Event [facility] [address] [place] [address] Brayan Goodwin MD 03/20/2024 7:30 AM CDT - 03/20/2024 11:00 AM CDT Surgery [facility] [address] [place] [address] Kong Diop MD LEFT TOTAL HIP ARTHROPLASTY DIRECT ANTERIOR APPROACH WITH ORTHOGRID 03/20/2024 5:29 AM CDT - 03/21/2024 1:10 PM CDT Hospital Encounter [facility] [address] [facility] [place] [address] Kong Diop MD Status post total hip replacement, left (Primary Dx) Discharge Disposition: Home or Self Care 03/20/2024 Travel 01/30/2024 12:45 PM CDT Office Visit [address] [place] [phone] Rahul Ford MD Coronary artery disease involving ewiiaapaayp coronary artery of ewiiaapaayp heart without angina pectoris; Benign essential hypertension; Palpitations 01/29/2024 8:45 AM CDT Lab [address] [place] [address] Chadwick Jensen NP Coronary artery disease involving ewiiaapaayp coronary artery of ewiiaapaayp heart without angina pectoris; Benign essential hypertension; Palpitations 01/29/2024 Travel 01/25/2024 Travel 01/07/2024 External Order Results [facility] [address] [place] [address] Outside, Provider from Last 3 Months Immunizations Name Administration Dates Next Due COVID-19 MONOVALENT 12+ (Pfizer) 12/30/2020,0404/2021 Family History Medical History Relation Comments Aortic [...] (Latest Contact Info) Description 07/24/2024 7:30 AM BEEF SELECTOR Hospital Encounter [facility] [address] [place] [address] Kong Diop MD [facility] [address] [place], [place] [address] 07/24/2024 7:30 AM BEEF SELECTOR - 07/24/2024 11:00 AM BEEF SELECTOR Surgery [facility] [address] [place] [address] Kong Diop MD [facility] [address] [place] [address] RIGHT TOTAL HIP ARTHROPLASTY DIRECT ANTERIOR APPROACH WITH ORTHO GRID Scheduled Procedures Name Priority Associated Diagnoses Date/Ti me ARTHROPLASTY, HIP, TOTAL, DIRECT ANTERIOR APPROACH, USING ORTHOGRID Degenerative joint disease (DJD) of hip 07/24/2024 7:30 AM BEEF SELECTOR Health Maintenance Due Date Last Done Comments ADVANCE CARE PLANNING 1960 ANNUAL REVIEW OF HM ORDERS 1961 CT COLONOGRAPHY 1961 FIT 1961 FLEX SIG 1961 sDNA (Cologuard) 1961 COLONOSCOPY 1971 COLORECTAL CANCER SCREENING 1971 HIV SCREENING 1976 HEPATITIS C SCREENING 1979 YEARLY PREVENTIVE VISIT 01/17/2019 01/17/2018 RSV VACCINE ( & 60+) (1 - 1-dose 60+ series) 2021 MAMMO SCREENING 08/24/2022 08/24/2020, 08/04, 01/31/2018, Additional history exists COVID-19 Vaccine (2022- season) 2023 08/01/2021, 12/30/2020, 12/09/2020 INFLUENZA VACCINE (#1) 2024 , 06/19/2022, 06/13/2022, Additional history exists LIPID 01/28/2025 01/29/2024, 02/02, 02/22/2022, Additional history exists PAP 06/15/2025 06/15/2022, 06/03, 04/23/2019 GLUCOSE 03/20/2027 03/20/2024, 01/02, 02/23/2023, Additional history exists DTAP/TDAP/TD IMMUNIZATION (3 - Td or Tdap) 04/23/2029 04/23/2019, 05/06/2009 ZOSTER IMMUNIZATION Completed 07/25/2020, 0 PHQ-2 (once per calendar year) Completed 01/30/2024, 02/23/2023 Pneumococcal Vaccine: Pediatrics (0 to 5 Years) and At-Risk Patients (6 to 64 Years) Completed 02/28/2024 HPV IMMUNIZATION Aged Out No longer e [...] on patient's age to complete this topic Medical Devices Implanted Type Area Belt Conveyor Drier Device Identifier Shelf Expiration Date Model / Serial / Lot Imp [place] Hole Eliminator Hip Depuy Duraloc 1246-03-000 - [id number] Implanted:Qty : 1 on 03/20/2024 by Kong Diop MD at [facility] Metallic Hardware/An chor Left: Hip [employer] [id number] 01/31/2034 [id number] / / [id number] Imp Scr Bone Can Jose 6.5x35mm 1217-35-500 - [id number] Implanted:Qty : 1 on 03/20/2024 by Kong Diop MD at [facility] Metallic Hardware/An chor Left: Hip [employer] [id number] 10/31/2032 [id number] / / [id number] Imp Scr Bone Can Jose 6.5x20mm 1217--500 - [id number] Implanted:Qty : 1 on 03/20/2024 by Kong Diop MD at [facility] Metallic Hardware/An chor Left: Hip [employer] [id number] 12/31/2033 [id number] / / [id number] Imp Cup Jose [place] 52mm 1217-22-052 - [id number] Implanted:Qty : 1 on 03/20/2024 by Kong Diop MD at [facility] Total Joint Component/I nsert Left: Hip [employer] [id number] 12/31/2033 [id number] / / [id number] Imp Insert Hip Depuy [place]as Altrx [id number] 1221-36-052 - [id number] Implanted:Qty : 1 on 03/20/2024 by Kong Diop MD at [facility] Total Joint Component/I nsert Left: Hip [employer] [id number] 01/01/2028 1221-36-052 / / [id number] Imp Stem Fem Depuy Actis Collar Hi-Offset Sz 2mm - [id number] Implanted:Qty : 1 on 03/20/2024 by Kong Diop MD at [facility] Total Joint Component/I nsert Left: Hip [employer] [id number] / / Imp Head Femoral Depuy Ceramic 36mm +1.5mm 1365-36-310 - [id number] Implanted:Qty : 1 on 03/20/2024 by Kong Diop MD at [facility] Total Joint Component/I nsert Left: Hip [employer] [id number] 12/31/2028 [id number] / / [id number] Procedures Procedure Name Priority Date/Time Associated Diagnosis [...] CLINICS Routine 01/30/2024 Coronary artery disease involving ewiiaapaayp coronary artery of ewiiaapaayp heart without angina pectoris Benign essential hypertension Palpitations LIPID REFLEX TO DIRECT LDL PANEL Routine 01/29/2024 8:56 AM CDT Coronary artery disease involving ewiiaapaayp coronary artery of ewiiaapaayp heart without angina pectoris Benign essential hypertension Palpitations BASIC METABOLIC PANEL Routine 01/29/2024 8:56 AM CDT Coronary artery disease involving ewiiaapaayp coronary artery of ewiiaapaayp heart without angina pectoris Benign essential hypertension [...] MD LAB - BLOOD ORDERAB LES LABORATORY [facility] [address] floor, [address] [place] [address], [place] [phone] * (ABNORMAL) Lactic Acid Whole Blood w/ [...] MD LAB - BLOOD ORDERAB LES LABORATORY [facility] [address] floor, [address] [place] [address], [place] [phone] * XR Pelvis w Hip Port Left 1 View (03/20/2024 11:20 AM CDT) Anatomical Region Laterality Modality Abdomen/Pelvis Left Digital Radiogra phy Impressions 03/20/2024 11:25 AM CDT IMPRESSION: Status post recent left total hip arthroplasty. No immediate hardware complication. Expected postsurgical soft tissue edema and subcutaneous emphysema. No acute fracture or malalignment. LB TINEO MD SYSTEM ID: ??[id number] Narrative 03/20/2024 11:25 AM CDT XR PELVIS [...] or malalignment. LB TINEO MD SYSTEM ID: [id number] Kong Diop MD IMG DIAGNOSTIC IMAGI NG ORDERABLES * XR Surgery DULCE L/T 5 Min Fluoro w Stills (03/20/2024 9:31 AM CDT) Anatomical Region Laterality Modality Abdomen/Pelvis Radio Fluoroscop y Impressions 03/20/2024 9:33 AM CDT IMPRESSION: Intraprocedural spot films demonstrate placement of a left total hip arthroplasty. Please reference the surgical report for further details. LB TINEO MD SYSTEM ID: ??[id number] Narrative 03/20/2024 9:33 AM CDT XR SURGERY [...] further details. LB TINEO MD SYSTEM ID: [id number] Kong Diop MD IMG DIAGNOSTIC IMAGI NG ORDERABLES * ANE AIRWAY ETT PERFORMABLE (03/20/2024 7:48 AM CDT) Narrative Diana Hogan APRN PING PONG TABLE ASSEMBLER - 03/20/2024 7:48 AM CDT Diana Hogan APRN PING PONG TABLE ASSEMBLER ? 03/20/2024 ??8:05 AM Airway ? Patient location during procedure: OR ? Procedure Start/Stop Times: 03/20/2024 7:48 AM Staff - ? Anesthesiologist: ??Brayan Goodwin MD ? PING PONG TABLE ASSEMBLER: Diana Hogan APRN PING PONG TABLE ASSEMBLER ? Other Anesthesia Staff: Rubi Franks RN ? Performed By: SRNA and with CRNAs ? Procedure performed by resident/fellow/PING PONG TABLE ASSEMBLER in presence of a teaching physician. Consent [...] Time: 03/20/2024 7:48 AM Brayan Goodwin MD DE ANESTHESIA * Potassium (03/20/2024 7:11 AM CDT) Potassium 4.1 3.4 - 5.3 mmol/L 03/20/2024 7:52 AM CDT LABORATORY Blood STRUCTURE OF RIGHT UPPER LIMB / Unknown Venipuncture / Unknown 03/20/2024 7:11 AM CDT 03/20/2024 7:31 AM CDT Brayan Goodwin MD LAB - BLOOD ORDERA BLES Performing Organization Address City/[facility]/ZIP Co de Phone Number LABORATORY [facility] [address] 1[address] floor, [address] [place] [address], [facility] [phone] * Creatinine (03/20/2024 7:11 AM CDT) Creatinine 0.77 0.51 - 0.95 mg/dL 03/20/2024 7:49 PM CDT LABORATORY GFR Estimate 87 >60 mL/min/1.7 3m2 03/20/2024 7:49 PM CDT LABORATORY Comment:eGFR calculated usin 2020 CKD-EPI equation. Blood STRUCTURE OF RIGHT UPPER LIMB / Unknown Venipuncture / Unknown 03/20/2024 7:11 AM CDT 03/20/2024 7:31 AM CDT Kong Diop MD LAB - BLOOD ORDERABL ES LABORATORY [facility] [address], [address] [place] [address], [place] [phone] * Glucose (03/20/2024 7:11 AM CDT) Glucose 98 70 - 99 mg/dL 03/20/2024 7:52 AM CDT SH LABORATORY Patient Fasting > 8hrs? Yes 03/20/2024 7:52 AM CDT SH LABORATORY Blood STRUCTURE OF RIGHT UPPER LIMB / Unknown Venipuncture / Unknown 03/20/2024 7:11 AM CDT 03/20/2024 7:31 AM CDT Brayan Goodwin MD LAB - BLOOD ORDERA BLES LABORATORY [facility] [address] floor, [address] [place] [address], [facility] [phone] * EKG Cardiac - HIM Scan (02/28/2024 [...] > 8hrs? Yes 01/29/2024 1:40 PM CDT LABORATORY Blood STRUCTURE OF LEFT UPPER LIMB / Unknown Venipuncture / Unknown 01/29/2024 8:56 AM CDT 01/29/2024 8:56 AM CDT Narrative U LABORATORY - 01/29/2024 1:40 PM CDT Cholesterol [...] NP LAB - BLOOD ORDERABL ES LABORATORY [facility] [place] [facility] [address] [facility] [place] [address], [facility] LABORATORY [facility] [address] [facility] (1st floor, no room number) [place] [address], [facility] * Basic metabolic panel (01/29/2024 8:56 AM CDT) [facility] Sodium 141 135 - 145 mmol/L [...] NP LAB - BLOOD ORDERABL ES LABORATORY [facility] [address] [facility] (1st floor, no room number) [place] [address] * TSH (01/07/2024 2:50 PM CDT) [...] - BLOOD ORDERABL ES Performing Organization Address [facility]/ZIP Co de Phone Number BREEZE PFT NON-INTERFACED (ONBASE SCANS) * (ABNORMAL) CRP inflammation (01/07/2024 2:50 PM CDT) CRP Inflammation (External) <0.5(L) 0.5 - 1.0 mg/dL NON-INTERFACE D (ONBASE SCANS) Blood BLOOD SPECIMEN / Unknown 01/07/2024 2:50 PM CDT Narrative BREEZE PFT - 01/07/2024 2:50 PM CDT Verified by Carmella Munroe on 01/25/2024. Provider Outside LAB - BLOOD ORDERABL ES Performing Organization Address [facility] Co de Phone Number BREEZE PFT NON-INTERFACED [...] Modality Other Provider Outside IMG MAMMOGRAPHY ORDE ANGEL from Last 3 Months or Most Recently Relevant to Health Maintenance Advance Directives For more information, please contact: [phone] * Full Code (Latest Code Status on File) Date Activated Date Inactivated Comments 03/20/2024 11:54 AM 03/20/2024 7:44 PM All basic a nd advanced life-sustaining interventions are performed as appropriate Question Answer Comments Code status determined by: Unable to det ermine; FULL CODE until documents or legal decision maker available Care Teams Graphic Design Assistant Relationship Specialty Start Date End Date Yamila Dave PA-C [facility] [address] [place] [address] PCP - General Physician Tube Sizer Operator 04/14/20 Chadwick Jensen NP [address] [place] [address] Nurse Practitioner Cardiovascular Disease 11/15/22 Rahul Ford MD MD Cardiovascular Disease 01/24/24 Rahul Ford MD Assigned Heart and Vascular Provider 02/24/24
--- OUTSIDE RECORDS SUMMARY | 2024-03-27 15:42 | XMS_ITS | Clinical Summary ---
Author Organization [facility] Address [place], [place] [address] Care Team Providers Care Brattice Builder Name Role Phone Yamila Dave PA-C Primary Care Provider [phone] Allergies Active Allergy Reactions Criticality Noted Date [...] Department Care Team Description 01/29/2024 Orders Only [facility] [address] [place] [address] Dilma Hanh Noe scan: (1-Ord) Zio Final [...] 16 Negative Negative 06/21/2022 9:30 AM CDT [facility] [place] LAB[facility]ATORY-[facility] TRAL LABORATORY TYPE 18 Negative Negative 06/21/2022 9:30 AM CDT [facility] TRAL LABORATORY OTHER HIGH RISK TYPES Negative Negative 06/21/2022 9:30 AM CDT [facility] TRAL LABORATORY Other (Cervical/Vagina l) 06/15/2022 9:45 AM CDT 06/16/2022 8:28 AM CDT Narrative [facility] LABORATORY-CENTRAL LABORATORY - 06/21/2022 9:30 AM CDT HPV types 16, 18, 31, 33, 35, 39, 45, 51, 52, 56, 58, 59, 66 and 68 DNA were undetectable or below the pre-set threshold. Methodology: Jamie Cristina 4800 HPV Test Yamila Dave PA-C MICROBIOLOGY [facility] [place] LABORATORY-CENTRAL LABORATORY [address] [place] [address], from Last 3 Months or Most Recently Relevant to Health Maintenance Advance Directives * Full Code (Latest Code Status on File) Date Activated Date Inactivated Comments 11/19/2020 5:56 AM 11/19/2020 1:25 PM Question Answer Comments Code Status Discussion: Not Discussed Care Teams Brattice Builder Relationship Specialty Start Date End Date Yamila Daev PA-C [address] [place] [address] PCP - General Emergency Medicine 11/05/20
--- OUTSIDE RECORDS SUMMARY | 2024-03-27 15:42 | XMS_ITS | Encounter Summary ---
Author Organization [place] Address [address] [place] [address] Care Team Providers Care Ticket Collector Name Role Phone TenzinEvangelistaLatishamaggie Mojica PA-C Primary Care Provider Chadwick Jensen NP Unavailable [phone] Chadwick Jensen NP Unavailable [phone] Rahul Ford MD Unavailable Un available Reason for Referral * Consultation (Routine: Next available opening) - Pending Review Specialty Diagnoses / Procedures Referred By Vickie t Referred To Contact Cardiovascular Disease Diagnoses Coronary artery disease involving [place] coronary artery of [place] heart without angina pectoris Rahul Ford MD Referral ID Status Reason Start Date Expiration Date V isits Requested Visits Authorized [id number] Pending Review 01/30/2024 01/29/2025 1 1 Question Answer Preferred Location: [facility] Follow-up with: CON - Pathetr[facility] Scheduling Instructions: [facility] will call you to coordinate your care as prescribed by your provider. If you have concerns about scheduling, please call [phone]. Comments [facility] will call you to coordinate your care as prescribed by your provider. If you have concerns about scheduling, please call [phone]. Reason for Visit * Reason Comments Annual Visit Coronary Artery Disease * Consultation (Routine) - Closed Specialty Diagnoses / Procedures Referred By Contac t Referred To Contact Cardiovascular Disease Diagnoses Coronary artery disease involving [place] coronary artery of [place] heart without angina pectoris Benign essential hypertension Palpitations Chadwick Jensen NP [address] [place] [address] Referral ID Status Reason Start Date Expiration Date Visits Re quested Visits Authorized [id number] Closed 02/23/2023 02/23/2024 1 1 Encounter Details Date Type Department Care Team (Late st Contact Info) Description 01/30/2024 12:45 PM CDT Office Visit [address] [place] [address] Rahul Ford MD Coronary artery disease involving [place] coronary artery of [place] heart without angina pectoris; Benign essential hypertension; [...] to one of our cardiology nurses, call [phone]. To call to schedule any cardiology appointments call [phone]. documented in this encounter Progress Notes * Rahul Ford MD - 01/30/2024 12:45 PM CDT CARDIOLOGY VISIT REASON FOR VISIT: CAD SUBJECTIVE: 63-year-old female seen for CAD. She has hypertension, dyslipidemia, and psoriatic arthritis on methotrexate. 2019 she was admitted to [facility] in [place], [place] with non-STEMI. Echo showedEF 55% with [...] mg) by mouth daily 90 tablet 3 jrdvvut-lnwudpwhtqypq-rjdrnmwp (EXCEDRIN MIGRAINE) 250-250-65 MG tablet Take 1 [...] with CON. Rahul Ford MD Cardiology - [facility] Heart Pager: [phone] Text Page January 30, 2024 documented in this encounter Plan of Treatment Upcoming Encounters Date Type Department Care Team (Latest Contact Info) Description 07/24/2024 7:30 AM MOBILE DEVELOPMENT MANAGER Hospital Encounter [facility] [address] [place] [phone] Kong Diop MD [facility] [address] [place] [address] 07/24/2024 7:30 AM MOBILE DEVELOPMENT MANAGER - 07/24/2024 11:00 AM MOBILE DEVELOPMENT MANAGER Surgery [facility] [address] [place] [phone] Kong Diop MD [facility] [address] [place] [address] RIGHT TOTAL HIP ARTHROPLASTY DIRECT ANTERIOR APPROACH WITH ORTHO GRID Scheduled Orders Name Type Priority Associated Diagnoses Orde r Schedule Lipid panel reflex to direct LDL Fasting Lab Routine Coronary artery disease involving [place] coronary artery of [place] heart without angina pectoris Expected: 01/29/2025 (Approximate), Expires: 01/29/2025 Scheduled Procedures Name Priority Associated Diagnoses Date/Ti me ARTHROPLASTY, HIP, TOTAL, DIRECT ANTERIOR APPROACH, USING ORTHOGRID Degenerative joint disease (DJD) of hip 07/24/2024 7:30 AM MOBILE DEVELOPMENT MANAGER Scheduled Referrals Name Type Priority Associated Diagnoses Orde r Schedule Follow-Up with Cardiology CON Referral Routine: Next available opening Coronary artery disease involving [place] coronary artery of [place] heart without angina pectoris Expected: 01/29/2025 (Approximate), Expires: 01/29/2025 documented as of this encounter Procedures Procedure Name Priority Date/Time Associated Diagnosis Comments EKG 12-LEAD COMPLETE W/READ - CLINICS Routine 01/30/2024 Coronary artery disease involving [place] coronary artery of [place] heart without angina pectoris Benign essential hypertension Palpitations documented in this encounter Results * EKG 12-lead complete w/read - Clinics (performed today) (01/30/2024) Rahul Ford MD ECG ORDERAB LES documented in this encounter Visit Diagnoses Diagnosis Coronary artery disease involving [place] coronary artery of [place] heart without angina pectoris Benign essential hypertension Essential hypertension, benign Palpitations Degenerative joint disease (DJD) of hip documented in this encounter Care Teams Ticket Collector Relationship Specialty Start Date End Date Yamila Dave PA-C [facility] [address] [place] [address] PCP - General Physician Certified Massage Therapist 04/14/20 Chadwick Jensen NP [address] [address] Nurse Practitioner Cardiovascular Disease 11/15/22 Chadwick Jensen NP [address] [address] Assigned Heart and Vascular Provider 08/25/23 02/23/24 Rahul Ford MD Cardiovascular Disease 01/24/24 documented as of this encounter
--- OUTSIDE RECORDS SUMMARY | 2024-03-27 15:42 | XMS_ITS | Encounter Summary ---
Author Organization [place] Address [facility] [place] [address] Care Team Providers Care Aircraft Structure Mechanic Name Role Phone Yamila Dave PA-C Primary Care Provider Chadwick Jensen POKER MANAGER Unavailable [phone] Chadwick Jensen NP Unavailable [phone] Rahul Ford MD Unavailable Un available Encounter Details Date Type Department Care Team (Late st Contact Info) Description 01/29/2024 8:45 AM CDT [address] [place] [address] Chadwick Jensen NP [address] [place] [address] Coronary artery disease involving chippewa-cree coronary artery of chippewa-cree heart without angina pectoris; Benign essential hypertension; [...] (Latest Contact Info) Description 07/24/2024 7:30 AM CLOCK MAKER Hospital Encounter [facility] Services [address] [place] [address] Kong Diop MD [facility] [address] [place] [address] 07/24/2024 7:30 AM CLOCK MAKER - 07/24/2024 11:00 AM CLOCK MAKER Surgery [facility] Services [address] [place] [phone] Kong Diop MD [facility] [address] [place] [address] RIGHT TOTAL HIP ARTHROPLASTY DIRECT ANTERIOR APPROACH WITH ORTHO GRID Scheduled Procedures Name Priority Associated Diagnoses Date/Ti me ARTHROPLASTY, HIP, TOTAL, DIRECT ANTERIOR APPROACH, USING ORTHOGRID Degenerative joint disease (DJD) of hip 07/24/2024 7:30 AM CLOCK MAKER documented as of this encounter Procedures Procedure Name Priority Date/Time Associated Diagnosis Comments LIPID REFLEX TO DIRECT LDL PANEL Routine 01/29/2024 8:56 AM CDT Coronary artery disease involving chippewa-cree coronary artery of chippewa-cree heart without angina pectoris Benign essential hypertension Palpitations BASIC METABOLIC PANEL Routine 01/29/2024 8:56 AM CDT Coronary artery disease involving chippewa-cree coronary artery of chippewa-cree heart without angina pectoris Benign essential hypertension [...] LAB - BLOOD ORDERABL ES [facility] LABORATORY [facility] [place] [facility] [address] [facility] [address], [address] [place] [address], [facility] LABOR[facility]ORY [facility] Acute Care Lab [address] Lab (1st floor, no room number) [place] [address], [facility] * Basic metabolic panel (01/29/2024 [...] NP LAB - BLOOD ORDERABL ES LABORATORY [facility] Acute Care Lab [address] Lab (1st floor, no room number) [place] [address], [facility] documented in this encounter Visit Diagnoses Diagnosis Coronary artery disease involving chippewa-cree coronary artery of chippewa-cree heart without angina pectoris Benign essential hypertension Essential hypertension, benign Palpitations Degenerative joint disease (DJD) of hip documented in this encounter Care Teams Aircraft Structure Mechanic Relationship Specialty Start Date End Date Yamila Dave PA-C [facility] [address] [place] [address] PCP - General Physician Individual Pension Consultant 04/14/20 Chadwick Jensen NP [address] [place] [place] [address] Nurse Practitioner Cardiovascular Disease 11/15/22 Chadwick Jensen NP [address] [address] Assigned Heart and Vascular Provider 08/25/23 02/23/24 Rahul Ford MD Cardiovascular Disease 01/24/24 documented as of this encounter
--- OUTSIDE RECORDS SUMMARY | 2024-03-27 15:42 | XMS_ITS | Encounter Summary ---
Author Organization [place] Address [address] [facility] [place] [address] Care Team Providers Care Business Analytics Manager Name Role Phone Yamila Dave PA-C Primary Care Provider Chadwick Jensen NP Unavailable Rahul Ford MD Unavailable Un available Rahul Ford MD Unavailable Un available Encounter Details Date Type Department Care Team (Latest Contact Info) Description 03/20/2024 Travel Social History Tobacco Use Types Packs/Day [...] (Latest Contact Info) Description 07/24/2024 7:30 AM AIDS NURSE Hospital Encounter [facility] Services [address] [place] [address] Kong Diop MD [facility] [address] [place] [address] 07/24/2024 7:30 AM AIDS NURSE - 07/24/2024 11:00 AM AIDS NURSE Surgery [facility] Services [address] [place] [address] Kong Diop MD [facility] [address] [address] RIGHT TOTAL HIP ARTHROPLASTY DIRECT ANTERIOR APPROACH WITH ORTHO GRID Scheduled Procedures Name Priority Associated Diagnoses Date/Ti me ARTHROPLASTY, HIP, TOTAL, DIRECT ANTERIOR APPROACH, USING ORTHOGRID Degenerative joint disease (DJD) of hip 07/24/2024 7:30 AM AIDS NURSE documented as of this encounter Visit Diagnoses Not on filedocumented in this encounter Care Teams Business Analytics Manager Relationship Specialty Start Date End Date Yamila Dave PA-C [facility] [address] [place] [address] PCP - General Physician Computer Systems Software Architect 04/14/20 Chadwick Jensen NP [address] [place] [address] Nurse Practitioner Cardiovascular Disease 11/15/22 Rahul Ford MD MD Cardiovascular Disease 01/24/24 Rahul Ford MD Assigned Heart and Vascular Provider 02/24/24 documented as of this encounter
--- OUTSIDE RECORDS SUMMARY | 2024-03-27 15:42 | XMS_ITS | Encounter Summary ---
Author Organization [place] Address [address] [place] [address]. [place] [address] Care Team Providers Care Business Technology Professor Name Role Phone Tenzin Yamila Mojica PA-C Primary Care Provider Alo Steel PA-C Unavailable [phone] Rahul Ford MD Unavailable Un available Chadwick Jensen NP Unavailable [phone] Chadwick Jensen SALES SYSTEMS ENGINEER Unavailable [phone] Chadwick Jensen SALES SYSTEMS ENGINEER Unavailable [phone] Rahul Ford MD Unavailable Un available Rahul [...] (Latest Contact Info) Description 07/24/2024 7:30 AM EARLY CHILDHOOD EDUCATOR AIDE Hospital Encounter [facility] Services [address] [place] [phone] Kong Diop MD [facility] [address] [place] [address] 07/24/2024 7:30 AM EARLY CHILDHOOD EDUCATOR AIDE - 07/24/2024 11:00 AM EARLY CHILDHOOD EDUCATOR AIDE Surgery [facility] [address] [place] [phone] Kong Diop MD [facility] [address] [place] [address] RIGHT TOTAL HIP ARTHROPLASTY DIRECT ANTERIOR APPROACH WITH ORTHO GRID Scheduled Procedures Name Priority Associated Diagnoses Date/Ti me ARTHROPLASTY, HIP, TOTAL, DIRECT ANTERIOR APPROACH, USING ORTHOGRID Degenerative joint disease (DJD) of hip 07/24/2024 7:30 AM EARLY CHILDHOOD EDUCATOR AIDE documented as of this encounter Visit Diagnoses Not on filedocumented in this encounter Care Teams Business Technology Professor Relationship Specialty Start Date End Date Yamila Dave PA-C [facility] [address] [place] [address] PCP - General Physician Fixing Carpenter 04/14/20 Alo Steel PA-C [address] [place] [address] Assigned Heart and Vascular Provider 11/17/20 01/22/21 Rahul oFrd MD [address] [place] [address] Assigned Heart and Vascular Provider 01/23/21 03/02/23 Chadwick Jensen NP [address] [address] Nurse Practitioner Cardiovascular Disease 11/15/22 Chadwick Jensen NP [address] [address] Assigned Heart and Vascular Provider 03/03/23 08/17/23 Chadwick Jensen NP [address] [address] Assigned Heart and Vascular Provider 08/25/23 02/23/24 Rahul Ford MD Assigned Heart and Vascular Provider 08/18/23 08/24/23 Rahul Ford MD MD Cardiovascular Disease 01/24/24 Rahul Ford MD Assigned Heart and Vascular Provider 02/24/24 documented as of this encounter
--- OUTSIDE RECORDS SUMMARY | 2024-03-27 15:42 | XMS_ITS | Encounter Summary ---
Author Organization [place] Address [address] [facility] [place] [address] Care Team Providers Care Base Engineer Name Role Phone Yamila Dave PA-C Primary Care Provider Chadwick Jensen EMERGENCY MEDICINE MEDICAL DIRECTOR Unavailable [phone] Chadwick Jensen NP Unavailable [phone] Rahul Ford MD Unavailable Un available Encounter [...] (Latest Contact Info) Description 07/24/2024 7:30 AM PHLEBOTOMY INSTRUCTOR Hospital Encounter [facility] [address] [facility] [address] [place] [address] Kong Diop MD [facility] [address] [place] [address] 07/24/2024 7:30 AM PHLEBOTOMY INSTRUCTOR - 07/24/2024 11:00 AM PHLEBOTOMY INSTRUCTOR Surgery [facility] Services [address] [place] [address] Kong Diop MD [facility] [address] [place] [address] RIGHT TOTAL HIP ARTHROPLASTY DIRECT ANTERIOR APPROACH WITH ORTHO GRID Scheduled Procedures Name Priority Associated Diagnoses Date/Ti me ARTHROPLASTY, HIP, TOTAL, DIRECT ANTERIOR APPROACH, USING ORTHOGRID Degenerative joint disease (DJD) of hip 07/24/2024 7:30 AM PHLEBOTOMY INSTRUCTOR documented as of this encounter Visit Diagnoses Not on filedocumented in this encounter Care Teams Base Engineer Relationship Specialty Start Date End Date Yamila Dave PA-C [facility] [address] [place] [address] PCP - General Physician Patient Financial Services Manager 04/14/20 Chadwick Jensen NP [address] [address] Nurse Practitioner Cardiovascular Disease 11/15/22 Chadwick Jensen NP [address] [address] Assigned Heart and Vascular Provider 08/25/23 02/23/24 Rahul Ford MD Cardiovascular Disease 01/24/24 documented as of this encounter
--- OUTSIDE RECORDS SUMMARY | 2024-03-27 15:42 | XMS_ITS | Encounter Summary ---
Author Organization [place] Address [address] [place] [address]. [place] [address] Care Team Providers Care Abstracter Name Role Phone Tenzin Yamila Mojica PA-C Primary Care Provider Rahul Ford MD Unavailable Un available Alo Steel PA-C Unavailable [phone] Rahul Ford MD Unavailable Un available PatnaylaeChadwick BOTTLING LINE OPERATOR Unavailable [phone] PatnoChadwick [place] BOTTLING LINE OPERATOR Unavailable [phone] PatnoeChadwick BOTTLING LINE OPERATOR Unavailable [phone] Rahul Ford MD Unavailable Un available Rahul Ford MD Unavailable Un available Rahul Ford MD Unavailable Un available Encounter Details Date Type Department Care Team (Late st Contact Info) Description 09/23/2020 [facility] [address] [address] Rahul Ford MD Social [...] COVID-19? No / Unsure 09/20/2020 7:44 AM PUBLIC AFFAIRS SPECIALIST documented as of this encounter Plan of Treatment Upcoming Encounters Date Type Department Care Team (Latest Contact Info) Description 07/24/2024 7:30 AM PUBLIC AFFAIRS SPECIALIST [facility] [address] [place] [phone] Kong Diop MD [facility] [address] [facility] [address] [place] [address] 07/24/2024 7:30 AM PUBLIC AFFAIRS SPECIALIST - 07/24/2024 11:00 AM PUBLIC AFFAIRS SPECIALIST Surgery [facility] [address] [place] [address] Kong Diop MD [facility] [address] [place] [address] RIGHT TOTAL HIP ARTHROPLASTY DIRECT ANTERIOR APPROACH WITH ORTHO GRID Scheduled Procedures Name Priority Associated Diagnoses Date/Ti me ARTHROPLASTY, HIP, TOTAL, DIRECT ANTERIOR APPROACH, USING ORTHOGRID Degenerative joint disease (DJD) of hip 07/24/2024 7:30 AM PUBLIC AFFAIRS SPECIALIST documented as of this encounter Visit Diagnoses Not on filedocumented in this encounter Care Teams Abstracter Relationship Specialty Start Date End Date Yamila Dave PA-C [facility] [address] [place] [address] PCP - General Physician Research Engineer 04/14/20 Rahul Ford MD Assigned Heart and Vascular Provider 06/25/20 11/16/20 Alo Steel PA-C [address] [place] [address] Assigned Heart and Vascular Provider 11/17/20 01/22/21 Rahul Ford MD [address] [place] [address] Assigned Heart and Vascular Provider 01/23/21 03/02/23 Chadwick Jensen NP [address] [place] [address] Nurse Practitioner Cardiovascular Disease 11/15/22 Chadwick Jensen NP [address] [place] [address] Assigned Heart and Vascular Provider 03/03/23 08/17/23 Chadwick Jensen NP [address] [place] [address] Assigned Heart and Vascular Provider 08/25/23 02/23/24 Rahul Ford MD Assigned Heart and Vascular Provider 08/18/23 08/24/23 Rahul Ford MD MD Cardiovascular Disease 01/24/24 Rahul Ford MD Assigned Heart and Vascular Provider 02/24/24 documented as of this encounter
--- OUTSIDE RECORDS SUMMARY | 2024-03-27 15:42 | XMS_ITS | Encounter Summary ---
Author Organization [place] Address [facility] [place] [address] Care Team Providers Care Automotive Accessory Installer Name Role Phone Yamila Dave PA-C Primary Care Provider Rahul Ford MD Unavailable Un available Chadwick Jensen BEHAVIORAL HEALTH ASSOCIATE Unavailable [phone] PatChadwick kauffman BEHAVIORAL HEALTH ASSOCIATE Unavailable [phone] Chadwick Jensen BEHAVIORAL HEALTH ASSOCIATE Unavailable [phone] Rahul Ford MD Unavailable Un available Rahul Ford MD Unavailable Un available Rahul Ford MD Unavailable Un available Encounter Details Date Type Department Care Team (Late st Contact Info) Description 04/19/2022 External Order Results Self [facility] [address] [place] [phone] Outside, Provider Social History Tobacco Use Types [...] (Latest Contact Info) Description 07/24/2024 7:30 AM REWIND OPERATOR [facility] [address] [place] [phone] Kong Diop MD [facility] [address] [place] [address] 07/24/2024 7:30 AM REWIND OPERATOR - 07/24/2024 11:00 AM REWIND OPERATOR Surgery [facility] Services [address] [place] [phone] Kong Diop MD [facility] [address] [place] [address] RIGHT TOTAL HIP ARTHROPLASTY DIRECT ANTERIOR APPROACH WITH ORTHO GRID Scheduled Procedures Name Priority Associated Diagnoses Date/Ti me ARTHROPLASTY, HIP, TOTAL, DIRECT ANTERIOR APPROACH, USING ORTHOGRID Degenerative joint disease (DJD) of hip 07/24/2024 7:30 AM REWIND OPERATOR documented as of this encounter Procedures Procedure [...] Blood 04/19/2022 12:0 0 PM CDT Narrative KATHIEJUAN CARLOS PFT - 04/20/2022 2:32 PM CDT Verified by Joshua Delacruz on 04/20/2022. Provider Outside LAB - BLOOD ORDERABL ES Performing Organization Address [facility] Co de Phone Number ABELARDO [...] filedocumented in this encounter Care Teams Automotive Accessory Installer Relationship Specialty Start Date End Date Yamila Dave PA-C [facility] [address], [place] [address] PCP - General Physician Oceanographer Physical 04/14/20 Rahul Ford MD [facility] [address], [place] [address] Assigned Heart and Vascular Provider 01/23/21 03/02/23 Chadwick Jensen NP [address] [place] [address] Nurse Practitioner Cardiovascular Disease 11/15/22 Chadwick Jensen NP [address] [place] [address] Assigned Heart and Vascular Provider 03/03/23 08/17/23 Chadwick Jensen NP [address] [place] [address] Assigned Heart and Vascular Provider 08/25/23 02/23/24 Rahul Ford MD Assigned Heart and Vascular Provider 08/18/23 08/24/23 Rahul Ford MD MD Cardiovascular Disease 01/24/24 Rahul Ford MD Assigned Heart and Vascular Provider 02/24/24 documented as of this encounter
--- OUTSIDE RECORDS SUMMARY | 2024-03-27 15:42 | XMS_ITS | Encounter Summary ---
Author Organization [place] Address [address] [place] [address]. [place] [address] Care Team Providers Care Gas Scrubber Operator Name Role Phone Yamila Dave PA-C Primary Care Provider Chadwick Jensen BALANCING MACHINE SET UP WORKER Unavailable [phone] Chadwick Jensen NP Unavailable [phone] Rahul Ford MD Unavailable Un available Rahul Ford MD Unavailable Un available Encounter Details Date Type Department Care Team (Late st Contact Info) Description 11/16/2023 Medical Correspondence [facility] [address] [place] [address] Scan, Non-Provider Social History Tobacco Use Types Packs/Day Years [...] (Latest Contact Info) Description 07/24/2024 7:30 AM PLUMBING INSTALLER [facility] [address] [place] [phone] Kong Diop MD [facility] [address] [facility] [address] [place] [address] 07/24/2024 7:30 AM PLUMBING INSTALLER - 07/24/2024 11:00 AM PLUMBING INSTALLER [facility] [address] [place] [phone] Kong Diop MD [facility] [address] [facility] [address] [place] [address] RIGHT TOTAL HIP ARTHROPLASTY DIRECT ANTERIOR APPROACH WITH ORTHO GRID Scheduled Procedures Name Priority Associated Diagnoses Date/Ti me ARTHROPLASTY, HIP, TOTAL, DIRECT ANTERIOR APPROACH, USING ORTHOGRID Degenerative joint disease (DJD) of hip 07/24/2024 7:30 AM PLUMBING INSTALLER documented as of this encounter Visit Diagnoses Not on filedocumented in this encounter Care Teams Gas Scrubber Operator Relationship Specialty Start Date End Date Yamila Dave PA-C [facility] [address] [place] [address] PCP - General Physician Plastics Supervisor 04/14/20 Chadwick Jensen NP [address] [address] Nurse Practitioner Cardiovascular Disease 11/15/22 Chadwick Jensen NP [address] [address] Assigned Heart and Vascular Provider 08/25/23 02/23/24 Rahul Ford MD MD Cardiovascular Disease 01/24/24 Rahul Ford MD Assigned Heart and Vascular Provider 02/24/24 documented as of this encounter
--- OUTSIDE RECORDS SUMMARY | 2024-03-27 15:42 | XMS_ITS | Encounter Summary ---
Author Organization [place] Address [address] [facility] [place] [address] Care Team Providers Care Family Development Extension Specialist Name Role Phone Yamila Dave PA-C Primary Care Provider Chadwick Jensen NP Unavailable [phone] Rahul Ford MD Unavailable Un available Rahul Ford MD Unavailable Un available Reason for Visit * Auth/Cert (Routine) Specialty Diagnoses / Procedures Referred By Contac t Referred To Contact Surgery Diagnoses Degenerative joint disease of left hip Degenerative joint disease of left hip [M16.12] Procedures [place] TOTAL HIP ARTHROPLASTY LEFT TOTAL HIP ARTHROPLASTY DIRECT ANTERIOR APPROACH WITH ORTHOGRID [facility] Periop Services [address] [place] [address] Referral ID Status Reason Start Date Expiration Date Visits Re quested Visits Authorized [id number] 1 1 Encounter Details Date Type Department Care Team (Late st Contact Info) Description 03/20/2024 7:38 AM CDT Anesthesia Event [facility] PeriOP Services [address] [place] [address] Brayan Goodwin MD [facility] ANESTHESIOLOGY [address] [id number] Anesthesia Record Procedure Summary Procedure Name Responsible Anesthesiologist Anesthesia Start Time Anesthesia Stop Time LEFT TOTAL HIP ARTHROPLASTY DIRECT ANTERIOR APPROACH WITH ORTHOGRID (Left: Hip) Brayan Goodwin MD 03/20/24 0738 03/20/24 0957 Events Date Time Event Comment 03/20/2024 0702 0738 An Start Anesthesia Star t is defined as when the anesthesia provider assumed care, began anesthesia prep, remained continuously present with the patient, and excludes all time for performing the pre-anesthesia evaluation. The Pre-Anesthesia Evaluation was completed before Anesthesia Start. 0738 An Start Data 0738 AN REASSESS I attest that I have identified and re-evaluated the patient immediately before the induction of anesthesia and I am satisfied that the anesthetic plan is suitable for the patient's condition and procedure. The first vital signs recorded are pre- induction. Diana Hogan APRN TRUCK CRANE OPERATOR HELPER 0743 An Induction 0748 An Intubation 0749 MD Present 0752 Anesthesia Ready for Procedu re 0822 Timeout 0823 AN INCISION 0845 Quick Note EMR reviewed [place] 0949 AN Extubation All extubation criteria met prior to removal. 0950 MD Present 0951 an stop data 0957 An Stop Electronically signed by Zoie Sullivan APRN CRNA on March 20, 2024 9:57 AM Meds Name Total midazolam 1 mg/mL 2 mg fentaNYL 50 mcg/mL 50 mcg HYDROmorphone 1 mg/mL 1 mg lidocaine 2% 80 mg propofol 10 mg/mL 200 mg propofol drip mcg/kg/min 155.25 mg rocuronium 10 mg/mL 50 mg ePHEDrine 5 mg/mL in NS 5 mg phenylephrine (SAHIL-SYNEPHRINE) injection 300 mcg dexamethasone (DECADRON) 4 mg/mL 10 mg ondansetron 2 mg/mL 4 mg glycopyrrolate 0.2 mg/mL 0.2 mg sugammadex (BRIDION) 200mg/2mL 200 mg ceFAZolin Sodium (ANCEF) injection 2 g 2 g vecuronium 1 mg/mL 4 mg LR 1,500 mL * Agents Name O2 N2O Air Exp Sevoflurane Exp Isoflurane Exp Desflurane Ins Sevoflurane Ins Isoflurane Ins Desflurane * Blood No blood administrations on file. Lines, Drains, and Airways Type Details Placement Removal Incision/Surgical Site 03/20/24; Anterio r, Left; Greater Trochanter; left total hip 03/20/24 0000 by Wesley Leonard RN Peripheral IV 03/20/24; 0701; 20 G ; Left; Hand; Chlorhexidine; Tolerated well 03/20/24 0701 by Lucille Davis RN 03/21/24 1030 by Mayra Butts, ANUM ETT Placement Date: 03/20/24; Placement Time: 747 (created via procedure documentation); Mask Ventilation: 1; Induction Type: Intravenous; Ease of Intubation: Easy; Technique: Video laryngoscopy; Tube Size: 7 mm; VL Blade Size: Zabala 3; Grade View: 1; Adjucts: Stylet; Placement Person: TRUCK CRANE OPERATOR HELPER Student; Attempts: 1 03/20/24 0748 by Diana Hogan APRN TRUCK CRANE OPERATOR HELPER 03/20/24 0949 by Diana Hogan APRN TRUCK CRANE OPERATOR HELPER documented in this encounter Social History Tobacco Use Types Packs/Day Years [...] PM CDT documented as of this encounter OR Notes * Anesthesia Postprocedure Evaluation - Brayan Goodwin MD - 03/20/2024 2:18 PM CDT Patient: Kriss Song Procedure: Procedure(s): LEFT TOTAL HIP ARTHROPLASTY DIRECT ANTERIOR APPROACH WITH ORTHOGRID Anesthesia Type: General Note: Postop Pain Control: Uneventful Sign Out: Well controlled pain PONV: No Neuro/Psych: Uneventful Sign Out: Acceptable/Baseline neuro status Airway/Respiratory: Uneventful Sign Out: Acceptable/Baseline resp. status CV/Hemodynamics: Uneventful Sign Out: Acceptable CV status; No obvious hypovolemia; No obvious fluid overload Other NRE: NONE DID A NON-ROUTINE EVENT OCCUR? No Last vitals: Vitals Value Taken Time BP 98/61 03/20/24 1115 Temp 36.4 ??C (97.6 ??F) 03/20/24 1045 Pulse 81 03/20/24 1126 Resp 25 03/20/24 1126 SpO2 96 % 03/20/24 1126 Vitals shown include unfiled device data. Electronically Signed By: Brayan Goodwin MD March 20, 2024 2:18 PM * Anesthesia Procedure Notes - Diana Hogan APRN TRUCK CRANE OPERATOR HELPER - 03/20/2024 8:01 AM CDTAssociated Order(s): Airway Airway Patient location during procedure: OR Procedure Start/Stop Times: 03/20/2024 7:48 AM Staff - Anesthesiologist: Brayan Goodwin MD TRUCK CRANE OPERATOR HELPER: Diana Hogan APRN CRNA Other Anesthesia Staff: Rubi Franks RN Performed By: SRNA and with CRNAs Procedure performed by resident/fellow/TRUCK CRANE OPERATOR HELPER in presence of a teaching physician. Consent for Airway Urgency: elective Indications and Patient Condition Indications for airway management: liyah-procedural Induction type:intravenous Mask difficulty assessment: 1 - vent by mask Final Airway Details Final airway type: endotracheal airway Successful airway: ETT - single and Oral Endotracheal Airway Details ETT size (mm): 7.0 Cuffed: yes Successful intubation technique: video laryngoscopy VL Blade Size: Zabala 3 Grade View of Cords: 1 Adjucts: stylet Position: Right Measured from: lips Secured at (cm): 21 Bite block used: None Post intubation assessment Placement verified by: capnometry and chest rise Number of attempts at approach: 1 Number of other approaches attempted: 0 Secured with: tape Ease of procedure: easy Dentition: Intact and Unchanged Medication(s) Administered Medication Administration Time: 03/20/2024 7:48 AM * Anesthesia Preprocedure Evaluation - Brayan Goodwin MD - 03/19/2024 12:40 PM CDT Anesthesia Pre-Procedure Evaluation Patient: Kriss Song : 1960 Procedure : Procedure(s): LEFT TOTAL HIP ARTHROPLASTY DIRECT ANTERIOR APPROACH WITH ORTHOGRID Past Medical History: Diagnosis Date Anxiety Coronary artery disease 04/2020 GERD (gastroesophageal reflux disease) Heart palpitations Hypercholesterolemia Hyperhidrosis Hypertension Hypothyroidism NSTEMI (non-ST elevated myocardial infarction) (H) 04/2020 No intervention on cardiac cath CADENCE (obstructive sleep apnea) Psoriatic arthritis (H) Past Surgical History: Procedure Laterality Date BREAST LUMPECTOMY BUNIONECTOMY SECTION COLPOSCOPY WITH CERVIAL BIOPSY EGD ENDOMETRIAL ABLATION TUBAL LIGATION Allergies Allergen Reactions Bupropion Hives Paroxetine Rash Sertraline Rash Sulfa Antibiotics Rash Social History Tobacco Use Smoking status: Never Smokeless tobacco: Never Substance Use Topics Alcohol use: Yes Comment: rare occasion Wt Readings from Last 1 Encounters: 01/30/24 85.9 kg (189 lb 4.8 oz) Anesthesia Evaluation Pt has had prior anesthetic. No history of anesthetic complications ROS/MED HX ENT/Pulmonary: (+) sleep apnea (didn't tolerate), doesn't use CPAP, Neurologic: Cardiovascular: Comment: Pt had Holter monitor within past 3 months (+) Dyslipidemia hypertension- - CAD - past [place] (NSTEMI, no stents needed per patient) - - Previous cardiac testing Echo: Date: Results: Stress Test: Date: 2021 Results: Negative for ischemia ECG Reviewed: Date: Results: Cath: Date: Results: METS/Exercise Tolerance: Hematologic: Musculoskeletal: Comment: Chronic lower back pain Psoriatic arthritis (+) arthritis, GI/Hepatic: (+) GERD, Asymptomatic on medication, Renal/Genitourinary: Endo: (+) thyroid problem, hypothyroidism, Obesity (BMI 34), Psychiatric/Substance Use: (+) psychiatric history anxiety Infectious Disease: Malignancy: Other: Physical Exam Airway Mallampati: II TM distance: > 3 FB Neck ROM: full Mouth opening: > 3 cm Respiratory Devices and Support Dental (+) Minor Abnormalities - some fillings, tiny chips Cardiovascular cardiovascular exam normal Pulmonary pulmonary exam normal OUTSIDE LABS: CBC: Lab Results Component Value Date WBC 6.9 03/12/2022 WBC 14.1 (H) 01/04/2021 HGB 16.6 (H) 03/12/2022 HGB 13.3 01/04/2021 HCT 48.8 (H) 03/12/2022 HCT 39.7 01/04/2021 PLT 188 03/12/2022 PLT 158 01/04/2021 BMP: Lab Results Component Value Date NA 141 01/29/2024 NA 139 02/23/2023 POTASSIUM 4.1 01/29/2024 POTASSIUM 4.1 02/23/2023 CHLORIDE 104 01/29/2024 CHLORIDE 103 02/23/2023 CO2 23 01/29/2024 CO2 27 02/23/2023 BUN 20.2 01/29/2024 BUN 17.4 02/23/2023 CR 0.78 01/29/2024 CR 0.77 02/23/2023 GLC 93 01/29/2024 GLC 94 02/23/2023 COAGS: No results found for: PTT, INR, FIBR POC: No results found for: BGM, HCG, HCGS HEPATIC: Lab Results Component Value Date ALBUMIN 4.2 09/17/2020 PROTTOTAL 7.0 09/17/2020 ALT 38 09/17/2020 AST 23 09/17/2020 ALKPHOS 82 09/17/2020 BILITOTAL 0.5 09/17/2020 OTHER: Lab Results Component Value Date LACT 1.3 01/04/2021 A1C 5.1 02/22/2022 SARAH 9.1 01/29/2024 Anesthesia Plan ASA Status: 3 NPO Status: NPO Appropriate Anesthesia Type: General. - Airway: ETT Induction: Intravenous. Maintenance: Balanced. Techniques and Equipment: - Airway: Video-Laryngoscope Consents Anesthesia Plan(s) and associated risks, benefits, and realistic alternatives discussed. Questions answered and patient/sales representative trainee(s) expressed understanding. - Discussed: - Discussed with: Patient Postoperative Care Pain management: IV analgesics, Multi-modal analgesia. PONV prophylaxis: Ondansetron (or other 5HT-3), Dexamethasone or Solumedrol, Background Propofol Infusion Comments: Brayan Goodwin MD I have reviewed the pertinent notes and labs in the chart from the past 30 days and (re)examined the patient. Any updates or changes from those notes are reflected in this note. documented in this encounter Miscellaneous Notes * Anesthesia Care Transfer Note - Zoie Sullivan APRN TRUCK CRANE OPERATOR HELPER - 03/20/2024 9:57 AM CDT Patient: Kriss Song Procedure: Procedure(s): LEFT TOTAL HIP ARTHROPLASTY DIRECT ANTERIOR APPROACH WITH ORTHOGRID Diagnosis: Degenerative joint disease of left hip [M16.12] Diagnosis Additional Information: No value filed. Anesthesia Type: General Note: Oropharynx: oropharynx clear of all foreign objects Level of Consciousness: awake Oxygen Supplementation: face mask Level of Supplemental Oxygen (L/min / FiO2): 6 Independent Airway: airway patency satisfactory and stable Dentition: dentition unchanged Vital Signs Stable: post-procedure vital signs reviewed and stable Report to RN Given: handoff report given Patient transferred to: PACU Handoff Report: Identifed the Patient, Identified the Reponsible Provider, Reviewed the pertinent medical history, Discussed the surgical course, Reviewed Intra-OP anesthesia mangement and issues during anesthesia, Set expectations for post-procedure period and Allowed opportunity for questions andacknowledgement of understanding Vitals: Vitals Value Taken Time BP 124/79 03/20/24 0952 Temp Pulse 80 03/20/24 0957 Resp 25 03/20/24 0957 SpO2 99 % 03/20/24 0957 Vitals shown include unfiled device data. Electronically Signed By: Zoie Sullivan APRN TRUCK CRANE OPERATOR HELPER March 20, 2024 9:57 AM documented in this encounter Plan of Treatment Upcoming Encounters Date Type Department Care Team (Latest Contact Info) Description 07/24/2024 7:30 AM [facility] Hospital Encounter [facility] PeriOP Services [address] [place] [phone] Kong Diop MD [facility] [address] [place] [address] 07/24/2024 7:30 AM FILLING CARRIER - 07/24/2024 11:00 AM [facility] [address] [place] [phone] Kong Diop MD [facility] [address] [place] [address] RIGHT TOTAL HIP ARTHROPLASTY DIRECT ANTERIOR APPROACH WITH ORTHO GRID Scheduled Procedures Name Priority Associated Diagnoses Date/Ti me ARTHROPLASTY, HIP, TOTAL, DIRECT ANTERIOR APPROACH, USING ORTHOGRID Degenerative joint disease (DJD) of hip 07/24/2024 7:30 AM FILLING CARRIER documented as of this encounter Procedures Procedure Name Priority Date/Time Associated Diagnosis Comments ANE AIRWAY ETT PERFORMABLE Routine 03/20/2024 7:48 AM CDT documented in this encounter Results * ANE AIRWAY ETT PERFORMABLE (03/20/2024 7:48 AM CDT) Narrative Diana Hogan APRN TRUCK CRANE OPERATOR HELPER - 03/20/2024 7:48 AM CDT Diana Hogan APRN TRUCK CRANE OPERATOR HELPER ? 03/20/2024 ??8:05 AM Airway ? Patient location during procedure: OR ? Procedure Start/Stop Times: 03/20/2024 7:48 AM Staff - ? Anesthesiologist: ??Brayan Goodwin MD ? TRUCK CRANE OPERATOR HELPER: Diana Hogan APRN TRUCK CRANE OPERATOR HELPER ? Other Anesthesia Staff: Rubi Franks RN ? Performed By: SRNA and with CRNAs ? Procedure performed by resident/fellow/TRUCK CRANE OPERATOR HELPER in presence of a teaching physician. Consent [...] Time: 03/20/2024 7:48 AM Brayan Goodwin MD [place] ANESTHESIA documented in this encounter Visit Diagnoses Not on filedocumented in this encounter Administered Medications Inactive Administered Medications - up to 3 most recent administrations Medication Order MAR Action Action Date Dose Rate Site ceFAZolin Sodium (ANCEF) injection 2 g Routine, 2 g, Intravenous, PRE-OP/PRE-PROCEDURE, Starting on Nathaly 03/20/24 at 0602, For 1 dose, Give first dose within 1 hour PRIOR to incision. If patient weight is greater than or equal to 120 kg increase dose to 3 g., Indications: Perioperative Pharmacoprophylaxis, Pre-procedure $Given 03/20/2024 7:38 AM CDT 2 g dexAMETHasone (DECADRON) injection Intravenous, PRN, Administer over 1 Minutes, Starting on Nathaly 03/20/24 at 0759, Anesthesia Intra-op $Given 03/20/2024 7:59 AM CDT 10 mg ePHEDrine injection Intravenous, PRN, Starting on Nathaly 03/20/24 at 0840, Anesthesia Intra-op $Given 03/20/2024 8:40 AM CDT 5 mg fentaNYL (PF) (SUBLIMAZE) injection Intravenous, PRN, Administer over 3-5 Minutes, Starting on Nathaly 03/20/24 at 0738, Anesthesia Intra-op $Given 03/20/2024 7:38 AM CDT 50 mcg glycopyrrolate (ROBINUL) injection Intravenous, PRN, Administer over 1-2 Minutes, Starting on [place]athaly 03/20/24 at 0835, Anesthesia Intra-op $Given 03/20/2024 8:35 AM CDT 0.2 mg HYDROmorphone (DILAUDID) injection Intravenous, PRN, Starting on Nathaly 03/20/24 at 0823, Anesthesia Intra-op $Given 03/20/2024 8:25 AM CDT 0.5 mg $Given 03/20/2024 8:23 AM CDT 0.5 mg lactated ringers infusion Intravenous, CONTINUOUS PRN, Anesthesia Intra-op, Starting on Nathaly 03/20/24 at 0738, Until Nathaly 03/20/24 at 0957 $New Bag 03/20/2024 9:12 AM CDT $New Bag 03/20/2024 7:38 AM CDT lidocaine 2% injection (MDV) Intravenous, PRN, Starting on Nathaly 03/20/24 at 0743, Anesthesia Intra-op $Given 03/20/2024 7:43 AM CDT 80 mg midazolam (VERSED) injection Intravenous, Administer over 2 Minutes, PRN, Starting on Nathaly 03/20/24 at 0738, Anesthesia Intra-op $Given 03/20/2024 7:38 AM CDT 2 mg ondansetron (ZOFRAN) injection Intravenous, PRN, Administer over 2-5 Minutes, Starting on Nathaly 03/20/24 at 0929, Anesthesia Intra-op $Given 03/20/2024 9:29 AM CDT 4 mg phenylephrine (SAHIL-SYNEPHRINE) injection Intravenous, CONTINUOUS PRN, Starting on Nathaly 03/20/24 at 0842, Anesthesia Intra-op $Bolus 03/20/2024 9:18 AM CDT 100 mcg $Bolus 03/20/2024 8:53 AM CDT 100 mcg $New Bag 03/20/2024 8:42 AM CDT 100 mcg propofol (DIPRIVAN) infusion Intravenous, CONTINUOUS PRN, Starting on Nathaly 03/20/24 at 0755, Anesthesia Intra-op $New Bag 03/20/2024 7:55 AM CDT 20 mcg/kg/min 10.236 mL/hr propofol (DIPRIVAN) injection 10 mg/mL vial Intravenous, PRN, Starting on Nathaly 03/20/24 at 0743, Anesthesia Intra-op $Given 03/20/2024 7:43 AM CDT 200 mg rocuronium injection Intravenous, PRN, Starting on [place]athaly 03/20/24 at 0743, Anesthesia Intra-op $Given 03/20/2024 7:43 AM CDT 50 mg sugammadex (BRIDION) injection Intravenous, PRN, Starting on [place]athaly 03/20/24 at 0940, Anesthesia Intra-op $Given 03/20/2024 9:40 AM CDT 200 mg vecuronium (NORCURON) injection Intravenous, PRN, Starting on Nathaly 03/20/24 at 0836, Anesthesia Intra-op $Given 03/20/2024 9:19 AM CDT 1 mg $Given 03/20/2024 8:36 AM CDT 3 mg documented in this encounter Care Teams Family Development Extension Specialist Relationship Specialty Start Date End Date Yamila Dave PA-C [facility] [address] [place] [address] PCP - General Physician Armed Security Professional 04/14/20 Chadwick Jensen NP [address] [place] [address] Nurse Practitioner Cardiovascular Disease 11/15/22 Rahul Ford MD Cardiovascular Disease 01/24/24 Rahul Ford MD Assigned Heart and Vascular Provider 02/24/24 documented as of this encounter
--- OUTSIDE RECORDS SUMMARY | 2024-03-27 15:42 | XMS_ITS | Encounter Summary ---
Author Organization [place] Address [facility] [place] [address] Care Team Providers Care Multi Disciplined Language Analyst Name Role Phone Tenzin Yamila Mojica PA-C Primary Care Provider Alo Steel PA-C Unavailable [phone] Rahul Ford MD Unavailable Un available Chadwick Jensen NP Unavailable [phone] Chadwick Jensen MELT SUPERINTENDANT Unavailable [phone] Chadwick Jensen MELT SUPERINTENDANT Unavailable [phone] Rahul Ford MD Unavailable Un available Rahul [...] (Latest Contact Info) Description 07/24/2024 7:30 AM HARNESSMAKER APPRENTICE Hospital Encounter [facility] Services [address] [place] [phone] Kong Diop MD [facility] [address] [facility] [address] [place], [place] [id number] 07/24/2024 7:30 AM HARNESSMAKER APPRENTICE - 07/24/2024 11:00 AM HARNESSMAKER APPRENTICE Surgery [facility] [address] [place] [phone] Kong Diop MD [facility] [address] [facility] [address] [place], [place] [id number] RIGHT TOTAL HIP ARTHROPLASTY DIRECT ANTERIOR APPROACH WITH ORTHO GRID Scheduled Procedures Name Priority Associated Diagnoses Date/Ti me ARTHROPLASTY, HIP, TOTAL, DIRECT ANTERIOR APPROACH, USING ORTHOGRID Degenerative joint disease (DJD) of hip 07/24/2024 7:30 AM HARNESSMAKER APPRENTICE documented as of this encounter Visit Diagnoses Not on filedocumented in this encounter Care Teams Multi Disciplined Language Analyst Relationship Specialty Start Date End Date Yamila Dave PA-C [facility] [address] [place] [address] PCP - General Physician Solderer Assembly Repair 04/14/20 Alo Steel PA-C [address] [place] [address] Assigned Heart and Vascular Provider 11/17/20 01/22/21 Rahul Ford MD [address] [place] [address] Assigned Heart and Vascular Provider 01/23/21 03/02/23 Chadwick Jensen NP [address] [place] [address] Nurse Practitioner Cardiovascular Disease 11/15/22 Chadwick Jensen NP [address] [address] Assigned Heart and Vascular Provider 03/03/23 08/17/23 Chadwick Jensen NP [address] [address] Assigned Heart and Vascular Provider 08/25/23 02/23/24 Rahul Ford MD Assigned Heart and Vascular Provider 08/18/23 08/24/23 Rahul Ford MD MD Cardiovascular Disease 01/24/24 Rahul Ford MD Assigned Heart and Vascular Provider 02/24/24 documented as of this encounter
--- OUTSIDE RECORDS SUMMARY | 2024-03-27 15:42 | XMS_ITS | Encounter Summary ---
Author Organization [place] Address [address] [facility] [place] [address] Care Team Providers Care Gas Mask Inspector Name Role Phone Yamila Dave PA-C Primary Care Provider Chadwick Jensen NP Unavailable [phone] Rahul Ford MD Unavailable Un available Rahul Ford MD Unavailable Un available Reason for Visit * Auth/Cert (Routine) Specialty Diagnoses / Procedures Referred By Contac t Referred To Contact Surgery Diagnoses Degenerative joint disease of left hip Degenerative joint disease of left hip [M16.12] Procedures CA TOTAL HIP ARTHROPLASTY LEFT TOTAL HIP ARTHROPLASTY DIRECT ANTERIOR APPROACH WITH ORTHOGRID Sh Periop Services [address] [place] [address] Referral ID Status Reason Start Date Expiration Date Visits Re quested Visits Authorized [id number] 1 1 Encounter Details Date Type Department Care Team (Late st Contact Info) Description 03/20/2024 7:30 AM CDT - 03/20/2024 11:[address] [facility] Services [address] [place] [address] Kai Diop MD [facility] [address] [place] [address] LEFT TOTAL HIP ARTHROPLASTY DIRECT ANTERIOR APPROACH WITH ORTHOGRID Surgery Details Date/Time Status Location OR Service Patient Class Case Class Case Type Trauma Case? 03/20/24 7:30 AM Posted SH OR OR M 34 Orthopedics Same Day Surgery Elective Panel 1 Procedure LRB Anes Op Region Wound Class Comments LEFT TOTAL HIP ARTHROPLASTY DIRECT ANTERIOR APPROACH WITH ORTHOGRID Left General Hip I-Clean Surgeon Surgeon Role Service Panel Garrett Cho Assisting Chisel Grinder Authoriz ation 1 Kai Diop MD Primary Orthopedics 1 Mariana Gamez PA-C Assisting Chisel Grinder Author ization 1 Special Needs Pt verified procedure and laterality: LEFT*htn, cad, afib, nstemi(2019)- asaREQUESTING 180MINS documented in this encounter Social History Tobacco [...] Sign Reading Time Taken Comments Blood Pressure 105/53 03/20/2024 11:00 AM CDT Pulse 79 03/20/2024 11:00 AM CDT Temperature 36.4 ??C (97.6 ??F) 03/20/2024 10:45 AM C DT Respiratory Rate 15 03/20/2024 11:00 AM CDT Oxygen Saturation 94% 03/20/2024 11:00 AM CDT Inhaled Oxygen Concentration - - Weight 85.3 kg (188 lb) 03/20/2024 6:12 AM CDT Height 160 cm (5' 3) [...] 40 MG tabletIndications:Coron thiago artery disease involving hamilton coronary artery of hamilton heart without angina pectoris,Palpitations Take 1 tablet (40 mg) by mouth daily 90 tablet 3 04/06/2022 citalopram (CELEXA) 20 MG tablet Take 20 mg by mouth daily 04/07/2020 golimumab (SIMPONI) 50 MG/0.5ML auto-injector pen 50 mg every 28 days losartan (COZAAR) 100 MG tabletIndications:[place] essential hypertension Take 1 tablet (100 mg) by mouth daily 90 tablet 02/23/2023 meloxicam (MOBIC) 15 MG tabletIndications:Statu s post total hip replacement, left Take 1 tablet (15 mg) by mouth daily for 42 days 42 tablet 03/20/2024 05/01/2024 metoprolol tartrate (LOPRESSOR) 25 MG tabletIndications:Coron thiago artery disease involving hamilton coronary artery of hamilton heart without angina pectoris,Palpitations Take 1 tablet [...] of this encounter Progress Notes * Mayra Butts RN - 03/21/2024 1:02 PM CDT Patient vital signs are at baseline: Yes Patient able to ambulate as they were prior to admission or with assist devices provided by therapies during their stay: Yes Patient MUST void prior to discharge: Yes Patient able to tolerate oral intake: Yes Pain has adequate pain control using Oral analgesics: Yes Does patient have an identified polo coach: Yes Has goal D/C date and [...] Discharge to home today. Mariana Gamez PA-C [phone] * Qi Lewis RN - 03/20/2024 10:33 PM CDT MD Notification Notified Person: MD Notified Person Name: geographic information scientist loki CAT ( DR. Bazzi). Notification Date/Time: 10:34 pm 03/20 Notification Interaction: phone call Purpose of Notification: lactic acid 2.9 Orders Received: DR BAZZI geographic information scientist orthropedics call at this time 11:07 pm continue with iv fluidsand monitor for tonight. Also will reorder discontinue orders in the morning and will order for hospitalist. [place] hospitalist order Comments: * Corina Ceja LPN - 03/17/2024 12:37 PM CDT BUNDLE PERSON medications updated by Medication Scribe prior to surgery via phone call with patient (last doses completed by Nurse) Medication history sources: Patient, Surescripts, and (Cardiology Progress Note) In the past week, patient estimated taking medication this percent of the time: Greater than 90% Significant changes made to the medication list: Patient reports no longer taking the following meds (med scribe removed from BUNDLE PERSON med list): azathioprine, Spironolactone Additional medication history information: None Medication reconciliation completed by provider prior to medication history? No Time spent in this activity: 40 minutes The information provided in this note is only as accurate as the sources available at the time of update(s) Prior to Admission medications Medication Sig Last Dose Taking? Auth Provider Senior Web Analyst End Date acetaminophen (TYLENOL) 500 MG tablet [...] by mouth 2 times daily at am YesChadwick Jensen NP Yes Multiple Vitamin (MULTI-VITAMINS) TABS Take by mouth daily 03/12/2024 at am Yes Reported, Patient omeprazole (PRILOSEC) [address] capsule 20 mg daily at am Yes Reported, Patient Medication history completed by: Corina Ceja LPN documented in this encounter Consult Notes * Morgan Garcia MD - 03/21/2024 11:08 AM CDTAssociated Order(s): HOSPITALIST IP CONSULT [facility] Consult Note - Hospitalist Service Date of Admission: 03/20/2024 Consult Requested by: Kai Diop MD Reason for Consult: HTN Assessment & Plan Kriss Song is a 63 year old female admitted on 03/20/2024 for Lt ARVIND. Medicine service consulted for post operative hemodynamics, medications review # HTN: BUNDLE PERSON on Metoprolol (resumed with hold parameters) HOLD [...] Garcia MD Hospitalist Service Securely message with Videdressing (more info) Text page via [facility] Paging/Directory Chief Complaint S/p Lt ARVIND [...] in this encounter Nursing Notes * Apple Moore, ANUM - 03/20/2024 10:37 AM CDT Signed out given by NIKO Goodwin. Patient ok to be transfer to the floor documented in this encounter Miscellaneous Notes * Plan of Care - Nava Hutson PT - 03/21/2024 10:09 AM CDT Physical Therapy Discharge Summary Reason for therapy discharge: Discharged to home. Progress towards therapy goal(s). See goals on Care Plan in [facility] electronic health record for goal details. Goals met Therapy recommendation(s): Continue home exercise program. * Plan of Care - Qi Lewis RN - 03/21/2024 6:23 AM CDT Goal Outcome Evaluation: Summary: 03-21-24 [id number] Diagnosis: left total hip arthroplasty POD#1 Orientation: [...] PRN Oxycodone. Does patient have an identified polo coach: Yes Has goal D/C date and [...] PRN Oxycodone. Does patient have an identified polo coach: Yes Has goal D/C date and time been discussed with patient: Yes * Op Note - Kai Diop MD - 03/20/2024 8:23 AM CDT DATE OF SERVICE: 03/20/2024 SURGEON KAI CARRILLO M.D. ICING MAKER Mariana Gamez PA-C - Assisting MARISSA Casanova, OPA-C - Assisting PREOPERATIVE DIAGNOSIS Left hip osteoarthritis, failed to respond to conservative management. POSTOPERATIVE DIAGNOSIS Left hip osteoarthritis, failed to respond to conservative management. TITLE OF PROCEDURE Left total hip arthroplasty, Depuy uncemented components, direct anterior approach. OrthoGrid Fluroscopic hip navigation. PROCEDURE The patient was brought to the operating room and after satisfactory anesthesia was placed on the [place] table. The left lower extremity was then [...] aid of image intensification. A 52 mm [place] cup was impacted into place in [...] gm of tranexamic acid pre-op. A skilled learning and development assistant was necessary for this procedure for assistance with patient positioning,prepping, draping, surgical visualization, performance of the repair, wound closure, and application of the dressing. * Brief Op Note - Kai Diop MD - 03/20/2024 5:29 AM CDT [facility] Brief Operative Note Pre-operative diagnosis: Left hip OA Post-operative diagnosis same Procedure: LEFT DIRECT ANTERIOR TOTAL HIP ARTHROPLASTY Surgeon(s) and Role: * Kai Diop MD - Primary * Mariana Gamez PA-C - Assisting * MARISSA Casanova, OPA-C - Assisting Anesthesia: General Estimated blood loss: 300 ml Drains: None Specimens: None Findings: Advanced OA Complications: None Plan: DC home POD1 w/family assist. DVT prophylaxis w/ASA 325mg QD x6wks. Implants: Implant Name Type Inv. Item Serial No. Heavy Equipment Service Technician Lot No. LRB No. Used Action IMP CUP LAURA PINNACLE 52MM 1217-22-052 - [id number] Total Joint Component/Insert IMP CUP LAURA PINNACLE 52MM 1217-22-052 [employer] [facility]- [id number] Left 1 Implanted IMP APEX HOLE ELIMINATOR HIP DEPUY DURALOC 1246- - [id number] Metallic Hardware/Forest IMP APEX HOLE ELIMINATOR HIP DEPUY DURALOC 1246-000 [facility]- [id number] Left 1 Implanted IMP SCR BONE CAN LAURA 6.5X35MM 1217-35-500 - [id number] Metallic Hardware/Forest IMP SCR BONE CAN LAURA 6.5X35MM 1217-35-500 [employer] [facility]- [id number] Left 1 Implanted IMP SCR BONE CAN LAURA 6.5X20MM 1217-20-500 - [id number] Metallic Hardware/Forest IMP SCR BONE CAN LAURA 6.5X20MM 1217-20-500 [employer]- [id number] Left 1 Implanted IMP INSERT HIP DEPUY PINNACLE ALTRX [id number] 1221-36-052 - [id number] Total Joint Component/Insert IMP INSERT HIP DEPUY PINNACLE ALTRX [id number] 1221-36-052 [employer]- [id number] Left 1 Implanted IMP STEM FEM DEPUY ACTIS COLLAR HI-OFFSET SZ 2MM 1010-12-020 - [id number] Total Joint Component/Insert IMP STEM FEM DEPUY ACTIS COLLAR HI-OFFSET SZ 2MM 1010-12-020 [employer]- Left 1 Implanted IMP HEAD FEMORAL DEPUY CERAMIC 36MM +1.5MM 1365-36-310 - [id number] Total Joint Component/Insert IMP HEAD FEMORAL DEPUY CERAMIC 36MM +1.5MM 1365-36-310 [employer]- [id number] Left 1 Implanted documented in this encounter Plan of Treatment Upcoming Encounters Date Type Department Care Team (Latest Contact Info) Description 07/24/2024 7:30 AM LANDFILL GAS PLANT FIELD TECHNICIAN [facility] [address] [place] [phone] Kai Diop MD [facility] [address] [place] [address] 07/24/2024 7:30 AM LANDFILL GAS PLANT FIELD TECHNICIAN - 07/24/2024 11:00 AM LANDFILL GAS PLANT FIELD TECHNICIAN [facility] [address] [place] [phone] Kai Diop MD [facility] [address] [place] [address] RIGHT TOTAL HIP ARTHROPLASTY DIRECT ANTERIOR APPROACH WITH ORTHO GRID Scheduled Procedures Name Priority Associated Diagnoses Date/Ti me ARTHROPLASTY, HIP, TOTAL, DIRECT ANTERIOR APPROACH, USING ORTHOGRID Degenerative joint disease (DJD) of hip 07/24/2024 7:30 AM LANDFILL GAS PLANT FIELD TECHNICIAN documented as of this encounter Procedures Procedure [...] MD LAB - BLOOD ORDERAB LES LABORATORY [facility] [address] floor, [address] [place] [address], [facility] [phone] * (ABNORMAL) Lactic Acid Whole Blood w/ 1x repeat in 2 hrs when >2 (03/20/2024 10:40 PM CDT) Lactic Acid, Initial 2.5(H) 0.7 - 2.0 mmol/L 03/20/2024 11:05 PM CDT LABORATORY Blood STRUCTURE OF RIGHT HAND / Unknown Venipuncture / Unknown 03/20/2024 10:40 PM CDT 03/20/2024 10:49 PM CDT Jose Angel Villagomez MD LAB - BLOOD ORDERAB LES [facility] [address], [address] [place] [address], [facility] [phone] * (ABNORMAL) Lactic acid whole blood (03/20/2024 10:40 PM CDT) Lactic Acid 2.5(H) 0.7 - 2.0 mmol/L 03/20/2024 10:58 PM CDT LABORATORY Blood STRUCTURE OF RIGHT HAND / Unknown Venipuncture / Unknown 03/20/2024 10:40 PM CDT 03/20/2024 10:49 PM CDT Kai Diop MD LAB - BLOOD ORDERABL ES Performing Organization Address City/[facility]/ZIP Co de Phone Number [facility] [address], [address] [place] [address], [facility] [phone] * (ABNORMAL) Lactic Acid Whole Blood w/ 1x repeat in 2 hrs when >2 (03/20/2024 9:34 PM CDT) Lactic Acid, Initial 2.9(H) 0.7 - 2.0 mmol/L 03/20/2024 10:06 PM CDT LABORATORY Blood STRUCTURE OF RIGHT UPPER LIMB / Unknown Venipuncture / Unknown 03/20/2024 9:34 PM CDT 03/20/2024 9:52 PM CDT Kai Diop MD LAB - BLOOD ORDERABL ES [facility] [address], [address] [place] [address], [facility] [phone] * XR Pelvis w Hip Port Left 1 View (03/20/2024 11:20 AM CDT) Anatomical Region Laterality Modality Abdomen/Pelvis Left Digital Radiogra phy Impressions 03/20/2024 11:25 AM CDT IMPRESSION: Status post recent left total hip arthroplasty. No immediate hardware complication. Expected postsurgical soft tissue edema and subcutaneous emphysema. No acute fracture or malalignment. LB TINEO MD SYSTEM ID: [id number] Narrative 03/20/2024 11:25 AM CDT XR PELVIS [...] or malalignment. LB TINEO MD SYSTEM ID: [id number] Kai Diop MD IMG DIAGNOSTIC IMAGI NG ORDERABLES * XR Surgery DULCE L/T 5 Min Fluoro w Stills (03/20/2024 9:31 AM CDT) Anatomical Region Laterality Modality Abdomen/Pelvis Radio Fluoroscop y Impressions 03/20/2024 9:33 AM CDT IMPRESSION: Intraprocedural spot films demonstrate placement of a left total hip arthroplasty. Please reference the surgical report for further details. LB TINEO MD SYSTEM ID: ??[id number] Narrative 03/20/2024 9:33 AM CDT XR SURGERY [...] further details. LB TINEO MD SYSTEM ID: [id number] Kai Diop MD IMG DIAGNOSTIC IMAGI NG ORDERABLES * Creatinine (03/20/2024 7:11 AM CDT) Creatinine 0.77 0.51 - 0.95 mg/dL 03/20/2024 7:49 PM CDT LABORATORY GFR Estimate 87 >60 mL/min/1.7 3m2 03/20/2024 7:49 PM CDT LABORATORY Comment:eGFR calculated us2020 CKD-EPI equation. Blood STRUCTURE OF RIGHT UPPER LIMB / Unknown Venipuncture / Unknown 03/20/2024 7:11 AM CDT 03/20/2024 7:31 AM CDT Kai Diop MD LAB - BLOOD ORDERABL ES Performing Organization Address City/[facility]/ZIP Co de Phone Number LABORATORY [facility] [address], [address] [place] [address], [place] [phone] * Glucose (03/20/2024 7:11 AM CDT) Glucose 98 70 - 99 mg/dL 03/20/2024 7:52 AM CDT LABORATORY Patient Fasting > 8hrs? Yes 03/20/2024 7:52 AM CDT LABORATORY Blood STRUCTURE OF RIGHT UPPER LIMB / Unknown Venipuncture / Unknown 03/20/2024 7:11 AM CDT 03/20/2024 7:31 AM CDT Brayan Goodwin MD LAB - BLOOD ORDERA BLES LABORATORY [facility] [address], [address] [place] [address], [place] [phone] * Potassium (03/20/2024 7:11 AM CDT) Potassium 4.1 3.4 - 5.3 mmol/L 03/20/2024 7:52 AM CDT LABORATORY Blood STRUCTURE OF RIGHT UPPER LIMB / Unknown Venipuncture / Unknown 03/20/2024 7:11 AM CDT 03/20/2024 7:31 AM CDT Brayan Goodwin MD LAB - BLOOD ORDERA BLES LABORATORY [facility] [address], [address] [place] [address], [facility] [phone] * EKG Cardiac - HIM Scan (02/28/2024 12:00 AM CDT) 02/28/2024 Provider Outside ECG ORDERABLES * EKG Cardiac - HIM Scan (02/28/2024 12:00 AM CDT) 02/28/2024 Provider Outside ECG ORDERABLES * EKG Cardiac - HIM Scan (02/28/2024 12:00 AM CDT) 02/28/2024 Provider Outside ECG ORDERABLES documented in this encounter Visit Diagnoses Diagnosis Status post total hip replacement, left- Primary Degenerative joint disease of left hip Degenerative joint disease (DJD) of hip documented [...] Oral, EVERY 8 HOURS, First dose on Sun03/20/24 at 1430, For 3 days, Administer for [...] throat without fever, Starting on Sun03/20/24 at 1154 $Given 03/20/2024 5:03 PM CDT 1 lozenge benzocaine-menthol (CHLORASEPTIC) 6-10 MG lozenge 1 lozenge 1 lozenge, Buccal, EVERY 1 HOUR PRN, sore throat, sore throat without fever, Starting on Sun03/20/24 at 2037 $Given 03/20/2024 8:57 PM CDT 1 lozenge bisacodyl (DULCOLAX) suppository 10 mg 10 mg, Rectal, DAILY PRN, constipation, Use if Magnesium hydroxide (MILK of MAGNESIA) not effective after 24 hours. May discontinue if patient having bowel movement., Starting on Sun03/20/24 at 2036, Hold for loose stools. calcium carbonate (TUMS) chewable tablet 500 mg 500 mg, Oral, 4 TIMES DAILY PRN, heartburn, Starting on Sun03/20/24 at 1154 $Given 03/20/2024 5:03 PM CDT 500 mg calcium carbonate (TUMS) chewable tablet 500 mg 500 mg, Oral, 4 TIMES DAILY PRN, heartburn, Starting on Sun03/20/24 at 2036 ceFAZolin (ANCEF) 2 g in 100 mL D5W intermittent infusion Routine, 2 g, Intravenous, EVERY 8 HOURS, First dose on Sun03/20/24 at 1530, For 2 doses, First post-op [...] 6 HOURS PRN, itching, anxiety, Starting on Sun03/20/24 at 2036, Caution to be used when administering multiple Central Nervous System (COMPUTER INSTALLATION ENGINEER) depressing meds within a short time frame. fentaNYL (PF) (SUBLIMAZE) injection 25 mcg 25 mcg, Intravenous, EVERY 5 MIN PRN, moderate pain, Give fentaNYL (SUBLIMAZE) first if HYDROmorphone (DILAUDID) also ordered., Starting on Sun03/20/24 at 1008, Administer fentaNYL (SUBLIMAZE) for acute [...] adjuvant pain, Starting on Nathaly 03/20/24 at 2037 ketorolac (TORADOL) injection 15 mg 15 mg, Intravenous, EVERY 6 HOURS, First dose on Natahly 03/20/24 at 1530, For 4 doses, May [...] at 0730, Until Nathaly 03/20/24 at 0952 $New Bag 03/20/2024 7:01 AM CDT 10 mL/hr lactated ringers infusion at 100 mL/hr, Intravenous, CONTINUOUS, IF overnight stay, continue IV fluids until 0400 POD #1, then may saline lock if tolerating oral fluids. IF Day of Surgery Discharge, continue IV Fluids until one hour before discharge., Starting on Nathaly 03/20/24 at 1200, Until Nathaly 03/20/24 at 1944 $New Bag 03/20/2024 2:39 [...] analgesic side effects. Hold while on IV SALES ASSISTANT or with regular IV opioid dosing. $Given 03/20/2024 4:39 PM CDT 10 mg oxyCODONE (ROXICODONE) tablet 10 mg 10 mg, Oral, EVERY 4 HOURS PRN, severe pain, Starting on Nathaly 03/20/24 at 2036, Hold oral PRN dose for analgesic side effects. Notify provider to assess for uncontrolled pain or analgesic side effects. Hold while on IV SALES ASSISTANT or with regular IV opioid dosing. $Given 03/21/2024 8:47 AM CDT 10 mg oxyCODONE (ROXICODONE) tablet 5 mg 5 mg, Oral, EVERY 4 HOURS PRN, moderate pain, Starting on Nathaly 03/20/24 at 1154, Hold oral PRN dose for analgesic side effects. Notify provider to assess for uncontrolled pain or analgesic side effects. Hold while on IV SALES ASSISTANT or with regular IV opioid dosing. $Given 03/20/2024 12:42 PM CDT 5 mg oxyCODONE (ROXICODONE) tablet 5 mg 5 mg, Oral, EVERY 4 HOURS PRN, moderate pain, Starting on Nathaly 24 at 2036, Hold oral PRN dose for analgesic side effects. Notify provider to assess for uncontrolled pain or analgesic side effects. Hold while on IV SALES ASSISTANT or with regular IV opioid dosing. $Given [...] 150 mg 150 mg, Oral, ONCE, On Sun03/20/24 at 0630, For 1 dose, Give in [...] not resolved in 15-30 minutes, Notify provider. ROPivacaine (NAROPIN) 5 MG/ML 300 mg, ketorolac (TORADOL) 30 mg, EPINEPHrine (ADRENALIN) 0.6 mg in sodium chloride 0.9 % 100 mL (ORTHO MIRIAM STANDARD DOSE) INTRA-ARTICULAR, VEHICLE SAFETY INSPECTOR TO O.R., Starting on Nathaly 03/20/24 at 0602, For 1 dose, NOT FOR IV INJECTION. Used by provider at the end of surgery., Pre-procedure $Given 03/20/2024 9:25 AM CDT Operative Site/Surgical Site senna-docusate (SENOKOT-S/PERICOLACE) 8.6-50 MG per tablet 1 [...] lock dormant line, Starting on Sun03/20/24 at 2037 sodium chloride 0.9% (bottle) irrigation PRN, Starting on Sun03/20/24 at 0822, Intra-procedure $Given 03/20/2024 8:22 AM CDT 1,000 mLs sodium chloride 0.9% irrigation (bag) PRN, Starting on Sun03/20/24 at 0822, Intra-procedure $Given 03/20/2024 8:22 AM CDT 3,000 mLs Operative Site/Surgi anabel Site tranexamic acid (LYSTEDA) tablet 1,950 mg 1,950 mg, Oral, ONCE, On Nathaly 03/20/24 at 0630, For 1 dose, Administer with a sip of water in PRE OP area 90 minutes PRIOR to leaving Pre-op area., Pre-procedure $Given 03/20/2024 6:24 AM CDT 1,950 mg vancomycin (VANCOCIN) topical powder PRN, Starting on Sun03/20/24 at 0925, Intra-procedure $Given 03/20/2024 9:25 AM CDT 1 g Operative Site/Surgi anabel Site documented in this encounter Active and Recently Administered Medications Times are shown in CDT. Scheduled Medication Order 03/19/2024 03/20/2024 03/21/2024 acetaminophen (TYLENOL) tablet 975 mg (COMPLETED) 975 mg, Oral, ONCE, On Nathaly 03/20/24 at 0630, For 1 dose, Maximum acetaminophen dose from all sources = 75 mg/kg/day not to exceed 4 grams/day., Pre-procedure 0624 ($Given - Provider: Lucille Davis, RN) acetaminophen (TYLENOL) tablet 975 mg (CANCELED) [...] Lewis, ANUM) 0536 ($Given - Provider: Qi Lewis RN)1400 (Canceled Entry [...] Routine, 2 g, Intravenous, PRE-OP/PRE-PROCEDURE, Starting on Nahtaly 03/20/24 at 0602, For 1 dose, Give [...] HOURS, First dose (after last reorder) on Nathlay 03/20/24 at 2100, For 3 doses, May [...] RN) 030 ($Given - Provider: Qi Lewis, ANUM)0847 ($Given - Provider: Mayra Treadwell, ANUM) meloxicam (MOBIC) tablet 15 mg (COMPLETED) 15 mg, Oral, ONCE, On Nathaly 03/20/24 at 0630, For 1 dose, Give in pre-op, Pre-procedure 0624 ($Given - Provider: Lucille Davis, ANUM) metoprolol tartrate (LOPRESSOR) tablet 25 mg 25 [...] out. 0847 ($Given - Provider: Mayra Treadwell, ANUM) pregabalin (LYRICA) capsule 150 mg (COMPLETED) 150 mg, Oral, ONCE, On Nathaly 03/20/24 at 0630, For 1 dose, Give in pre-op., Pre-procedure 0624 ($Given - Provider: Lucille Davis, ANUM) ROPivacaine (NAROPIN) 5 MG/ML 300 mg, ketorolac (TORADOL) 30 mg, EPINEPHrine (ADRENALIN) 0.6 mg in sodium chloride 0.9 % 100 mL (ORTHO MIRIAM STANDARD DOSE) (COMPLETED) INTRA-ARTICULAR, VEHICLE SAFETY INSPECTOR TO O.R., Starting on Sun03/20/24 at 0602, For 1 dose, NOT FOR IV INJECTION. Used by provider at the end of surgery., Pre-procedure 0925 ($Given - Provider: Kai Diop MD) senna-docusate (SENOKOT-S/PERICOLACE) 8.6-50 MG per tablet 1 tablet (CANCELED) 1 tablet, Oral, 2 TIMES DAILY, First dose on Nathaly 03/20/24 at 1330, To prevent constipation. Hold for loose stools Hold for loose stools. 133 ($Given - Provider: Carmella Vargas, ANUM) senna-docusate (SENOKOT-S/PERICOLACE) 8.6-50 MG per tablet 1 tablet 1 tablet, Oral, 2 TIMES DAILY, First dose (after last reorder) on Nathaly 03/20/24 at 2100, To prevent constipation. Hold for loose stools Hold for loose stools. 2056 ($Given - Provider: Qi Lewis, ANUM) 0847 ($Given - Provider: Mayra Treadwell RN) sodium chloride (PF) 0.9% PF flush 3 [...] Pre-op area., Pre-procedure 0624 ($Given - Provider: Lucille Davis, RN) Continuous Medication Order 03/19/2024 03/20/2024 03/21/2024 lactated ringers infusion (CANCELED) at 10 mL/hr, Intravenous, CONTINUOUS, Pre-procedure, Starting on Nathaly 03/20/24 at 0730, Until Nathaly 03/20/24 at 0952 0701 ($New Bag - Provider: Jordan Davis RN) lactated ringers infusion (CANCELED) at [...] 1703 ($Given - Provider: Carmella Vargas RN) benzocaine-menthol (CHLORASEPTIC) 6-10 MG lozenge 1 lozenge 1 lozenge, Buccal, EVERY 1 HOUR PRN, sore throat, sore throat without fever, Starting on Nathaly 03/20/24 at 2037 2057 ($Given - Provider: Qi Lewis RN) bisacodyl (DULCOLAX) suppository 10 mg 10 mg, [...] used when administering multiple Central Nervous System (COMPUTER INSTALLATION ENGINEER) depressing meds within a short time frame. [...] 2 MIN PRN, opioid reversal, Starting on [facility] [facility] 03/20/24 at 2037, Administer intravenous route when [...] 2 MIN PRN, opioid reversal, Starting on [facility] 03/20/24 at 2037, Administer intramuscular if an [...] analgesic side effects. Hold while on IV SALES ASSISTANT or with regular IV opioid dosing. 1242 (See Alternative - Provider: Carmella Varags RN)1639 ($Given - Provider: Carmella Vargas RN) oxyCODONE (ROXICODONE) tablet 10 mg(Linked Group 5) 10 mg, Oral, EVERY 4 HOURS PRN, severe pain, Starting on Nathaly 03/20/24 at 7, Hold oral PRN dose for analgesic side effects. Notify provider to assess for uncontrolled pain or analgesic side effects. Hold while on IV SALES ASSISTANT or with regular IV opioid dosing. 2138 (See Alternative - Provider: Qi Lewis RN) 0847 ($Given - Provider: Mayra Treadwell RN) oxyCODONE (ROXICODONE) tablet 5 mg (CANCELED)(Linked Group 4) 5 mg, Oral, EVERY 4 HOURS PRN, moderate pain, Starting on Nathaly 03/20/24 at 1154, Hold oral PRN dose for analgesic side effects. Notify provider to assess for uncontrolled pain or analgesic side effects. Hold while on IV SALES ASSISTANT or with regular IV opioid dosing. 1242 ($Given - Provider: Carmella Vargas, RN)1639 (See Alternative - Provider: Carmella Vargas, RN) oxyCODONE (ROXICODONE) tablet 5 mg(Linked Group 5) 5 mg, Oral, EVERY 4 HOURS PRN, moderate pain, Starting on Nathaly 03/20/24 at 7, Hold oral PRN dose for analgesic side effects. Notify provider to assess for uncontrolled pain or analgesic side effects. Hold while on IV SALES ASSISTANT or with regular IV opioid dosing. 2138 ($Given - Provider: Qi Lewis RN) 0847 (See Alternative - Provider: Mayra Treadwell RN) prochlorperazine (COMPAZINE) injection 10 mg(Linked Group [...] dormant line, Starting on Nathaly 03/20/24 at 2036 sodium chloride 0.9% (bottle) irrigation [...] analgesic side effects. Hold while on IV SALES ASSISTANT or with regular IV opioid dosing. Or oxyCODONE (ROXICODONE) tablet 10 mg (CANCELED)Jump to med 10 mg, Oral, EVERY 4 HOURS PRN, severe pain, Starting on Nathaly 03/20/24 at 1154, Hold oral PRN dose for analgesic side effects. Notify provider to assess for uncontrolled pain or analgesic side effects. Hold while on IV SALES ASSISTANT or with regular IV opioid dosing. Group 5: oxyCODONE (ROXICODONE) tablet 5 mgJump to med 5 mg, Oral, EVERY 4 HOURS PRN, moderate pain, Starting on Nathaly 03/20/24 at 2036, Hold oral PRN dose for analgesic side effects. Notify provider to assess for uncontrolled pain or analgesic side effects. Hold while on IV SALES ASSISTANT or with regular IV opioid dosing. Or oxyCODONE (ROXICODONE) tablet 10 mgJump to med 10 mg, Oral, EVERY 4 HOURS PRN, severe pain, Starting on Nathaly 03/20/24 at 2036, Hold oral PRN dose for analgesic side effects. Notify provider to assess for uncontrolled pain or analgesic side effects. Hold while on IV SALES ASSISTANT or with regular IV opioid dosing. Group [...] provider. documented in this encounter Care Teams Gas Mask Inspector Relationship Specialty Start Date End Date Yamila Dave PA-C [facility] [address] [place] [address] PCP - General Physician Chisel Grinder 04/14/20 Chadwick Jensen NP [address] [place] [address] Nurse Practitioner Cardiovascular Disease 11/15/22 Rahul Ford MD Cardiovascular Disease 01/24/24 Rahul Ford MD Assigned Heart and Vascular Provider 02/24/24 documented as of this encounter
--- OUTSIDE RECORDS SUMMARY | 2024-03-27 15:42 | XMS_ITS | Encounter Summary ---
Author Organization [place] Address [facility] [place] [address] Care Team Providers Care Derrick Car Operator Name Role Phone Yamila Dave PA-C Primary Care Provider Chadwick Jensen NP Unavailable [phone] Chadwick Jensen NP Unavailable [phone] Rahul Ford MD Unavailable Un available Rahul Ford MD Unavailable Un available Encounter Details Date Type Department Care Team (Late st Contact Info) Description 01/07/2024 External Order Results [facility] [address] [place] [address] Outside, Provider Social History Tobacco Use Types [...] (Latest Contact Info) Description 07/24/2024 7:30 AM AGRICULTURAL ECONOMICS PROFESSOR Hospital Encounter [facility] [address], [address] [place] [phone] Kong Diop MD [facility] [address] [place] [address] 07/24/2024 7:30 AM AGRICULTURAL ECONOMICS PROFESSOR - 07/24/2024 11:00 AM AGRICULTURAL ECONOMICS PROFESSOR Surgery [facility] [address], [address] [place] [phone] Kong Diop MD [facility] [address] [place], [place] [address] RIGHT TOTAL HIP ARTHROPLASTY DIRECT ANTERIOR APPROACH WITH ORTHO GRID Scheduled Procedures Name Priority Associated Diagnoses Date/Ti me ARTHROPLASTY, HIP, TOTAL, DIRECT ANTERIOR APPROACH, USING ORTHOGRID Degenerative joint disease (DJD) of hip 07/24/2024 7:30 AM AGRICULTURAL ECONOMICS PROFESSOR documented as of this encounter Procedures Procedure [...] Unknown 01/07/2024 2:50 PM CDT Narrative ABELARDO BENNETTT - 01/25/2024 2:29 PM CDT Verified by Carmella Munroe on 01/25/2024. Provider Outside LAB - BLOOD ORDERABL ES ABELARDO PFAaron NON-INTERFACED (ONBASE SCANS) * (ABNORMAL) CRP inflammation (01/07/2024 2:50 PM CDT) CRP Inflammation (External) <0.5(L) 0.5 - 1.0 mg/dL NON-INTERFACE D (ONBASE SCANS) Blood BLOOD SPECIMEN / Unknown 01/07/2024 2:50 PM CDT Narrative BREEZE PFT - 01/07/2024 2:50 PM CDT Verified by Carmella Munroe on 01/25/2024. Provider Outside LAB - BLOOD ORDERABL ES BREEZE PFT NON-INTERFACED (ONBASE SCANS) * TSH (01/07/2024 2:50 PM CDT) TSH (External) 2.290 0.270 - 4.200 uIU/mL NON-INTERFACED (ONBASE SCANS) Blood BLOOD SPECIMEN / Unknown 01/07/2024 2:50 PM CDT Narrative BREEZE PFT - 01/25/2024 2:26 PM CDT Verified by Carmella Munroe on 01/25/2024. Provider Outside LAB - BLOOD ORDERABL ES BREEZE PFT NON-INTERFACED (ONBASE SCANS) documented in this encounter Visit Diagnoses Not on filedocumented in this encounter Care Teams Derrick Car Operator Relationship Specialty Start Date End Date Yamila Dave PA-C [facility] [address] [place] [address] PCP - General Physician Health Care Assistant 04/14/20 Chadwick Jensen NP [address] [address] Nurse Practitioner Cardiovascular Disease 11/15/22 Chadwick Jensen NP [address] [place] [address] Assigned Heart and Vascular Provider 08/25/23 02/23/24 Rahul Ford MD MD Cardiovascular Disease 01/24/24 Rahul Ford MD Assigned Heart and Vascular Provider 02/24/24 documented as of this encounter
--- OUTSIDE RECORDS SUMMARY | 2024-03-27 15:42 | XMS_ITS | Encounter Summary ---
Author Organization [place] Address [address] [facility] [place] [address] Care Team Providers Care Compensation Coordinator Name Role Phone Yamila Dave PA-C Primary Care Provider Chadwick Jensen BAND INSTRUMENT MAKER Unavailable [phone] Chadwick Jensen NP Unavailable [phone] Rahul Ford MD Unavailable Un available Encounter [...] (Latest Contact Info) Description 07/24/2024 7:30 AM DROP HAMMER PILE DRIVER OPERATOR Hospital Encounter [facility] [address] [place] [address] [facility] [address] [place] [address] 07/24/2024 7:30 AM DROP HAMMER PILE DRIVER OPERATOR - 07/24/2024 11:00 AM DROP HAMMER PILE DRIVER OPERATOR Surgery [facility] [address] [place] [address] [facility] [address] [place] [address] RIGHT TOTAL HIP ARTHROPLASTY DIRECT ANTERIOR APPROACH WITH ORTHO GRID Scheduled Procedures Name Priority Associated Diagnoses Date/Ti me ARTHROPLASTY, HIP, TOTAL, DIRECT ANTERIOR APPROACH, USING ORTHOGRID Degenerative joint disease (DJD) of hip 07/24/2024 7:30 AM DROP HAMMER PILE DRIVER OPERATOR documented as of this encounter Visit Diagnoses Not on filedocumented in this encounter Care Teams Compensation Coordinator Relationship Specialty Start Date End Date Yamila Dave PA-C [facility] [address] [place] [address] PCP - General Physician Title Assistant 04/14/20 Chadwick Jensen NP [address] [address] Nurse Practitioner Cardiovascular Disease 11/15/22 Chadwick Jensen NP [address] [address] Assigned Heart and Vascular Provider 08/25/23 02/23/24 Rahul Ford MD Cardiovascular Disease 01/24/24 documented as of this encounter
--- NOTE | 2024-03-27 16:45 | CRLHL7_ITS ---
For Patients: As a result of the Century Cures Act, medical imaging exams and procedure reports are released immediately into your electronic medical record. You may view this report before your referring provider. If you have questions, please contact your health care provider. Indication: Cough Technique: CT chest angio PE protocol after the intravenous administration of 95 cc of Isovue [address] note that all CT scans at this facility use dose modulation, iterative reconstruction, and/or weight-based dosing when appropriate to reduce radiation dose to as low as reasonably achievable. Comparison: Same day chest series Findings: Adequate opacification of the normal in caliber main pulmonary artery. There are no filling defects within the pulmonary arterial system. The thoracic aorta is normal in course and caliber. Heart is normal in size without pericardial effusion. There is no mediastinal mass or lymphadenopathy. Calcified left hilar nodes are noted. Small hiatal hernia is identified. There are a couple of benign calcified granulomas, lungs are otherwise clear. A few calcified splenic granulomas and a 4 millimeter nonobstructive left kidney stone are visualized. Soft tissues are unremarkable. Bones are age-appropriate. Impression: Negative study. Please note that all CT scans at this facility use dose modulation, iterative reconstruction, and/or weight-based dosing when appropriate to reduce radiation dose to as low as reasonably achievable. Dictated by Frankie Vargas MD @ 03/27/2024 4:28:51 PM (Electronically Signed)
== END 2024-03-27 15:38 | disposition home or self-care (01) ==
LOC: CT 15:39
PROVIDERS: PCP Physician Assistant Medical; Visit Provider Emergency Medicine
DX: R05.9 Cough, unspecified (principal); J98.11 Atelectasis; R06.02 Shortness of breath
CPT/HCPCS: 71275; Q9967

== ENCOUNTER 2024-05-19 10:13 | Outpatient (CLI) | payer BC, SELFPAY ==
--- OUTSIDE RECORDS SUMMARY | 2024-05-19 10:16 | XMS_ITS | Referral Summary ---
Author Organization [facility] Address [address] [place] [address] Care Team Providers Care Recycle Worker Name Role Phone Mildred Drake MD Primary Care Provider Allergies Active Allergy Reactions Criticality Noted Date Comments Alc-Sertraline 09/26/2006 Bupropion RASH Low 01/23/2017 Paroxetine Hcl RASH Low 01/23/2017 Paroxetine Hydrochloride 09/26/2006 Sertraline RASH Low 01/23/2017 Sulfa Antibiotics HIVES,ITCHING,RASH High 04/26/2016 Bupropion Hcl 09/26/2006 Medications Medication Sig Dispensed Refills Start Date End Date Status MULTIVITAMINS OR TABS 1 TABLET DAILY Active Calcium Carbonate-Vit D-Min (CALCIUM 1200 OR) Take by mouth. Active Linolenic Acid (OMEGA 3 OR) Take by mouth. Active Vitamin D3 1000 UNITS Oral Tab Take 1,000 Units by mouth daily. Active Phentermine HCl 37.5 MG Oral TabIndications:Right hip pain Take 37.5 mg by mouth every morning before breakfast. Taking 0.5 daily Active omeprazole 20 MG Oral Capsule Delayed Release Take 1 capsule (20 mg total) by mouth before breakfast. 90 capsule 3 11/08/2017 Active Citalopram Hydrobromide 20 MG Oral TabIndications:Right hip pain Take 1 tablet (20 mg total) by mouth daily. 90 tablet 3 12/25/2017 Active Losartan Potassium-HCTZ 50-12.5 MG Oral Tab Take 1 tablet by mouth daily. 90 tablet 3 01/02/2018 Active Active Problems Problem Noted Date Diagnosed Date Essential hypertension 05/13/2017 Borderline abnormal TFTs 02/15/2015 Kidney stone 07/21/2013 Anxiety 12/19/2010 Immunizations Name Administration Dates Next Due >=3 YRS QUAD MULTIDOSE VIAL (58744) FLU CLINIC 05/31/2015 Influenza 06/03/2017, 6,06/09/2014, 013,07/04/2012,05/06/2009,07/01/2007 TDAP 05/06/2009 Social History Tobacco Use Types Packs/Day Years Used Date Smoking Tobacco: Never Smokeless Tobacco: Never Tobacco Cessation:Counseling Given: No Alcohol Use Standard Drinks/Week Comments Yes 0 (1 standard drink = 0.6 oz pur e alcohol) SS Sex and Gender Information Value Date Recorded Sex Assigned at Not on file Gender Identity Not on file Sexual Orientation Not on file Last Filed Vital Signs Vital Sign Reading Time Taken Comments Blood Pressure 142/94 03/18/2018 12:42 PM CDT Pulse 84 03/18/2018 12:42 PM CDT Temperature 36.6 ??C (97.9 ??F) 03/18/2018 12:42 PM C DT Respiratory Rate 16 03/18/2018 12:42 PM CDT Oxygen Saturation 98% 03/18/2018 12:42 PM CDT Inhaled Oxygen Concentration - - Weight 74.8 kg (165 lb) 03/18/2018 12:42 PM CDT Height 160 cm (5' 3) 03/18/2018 12:42 PM CDT Body Mass Index 29.23 03/18/2018 12:42 PM CDT Functional Status Functional Status Response Date of Assess ment Hearing Problems? No 01/17/2018 Vision Problems? No 01/17/2018 Difficulty walking? No 01/17/2018 Difficulty dressing or bathing? No 01/17/2018 Problems with daily activities? No 01/17/2018 Cognitive Status Response Date of Assessm ent Memory Problems? No 01/17/2018 Plan of Treatment Not on file Procedures Procedure Name Priority Date/Time Associated Diagnosis Comments RANDA SCREEN MAMMOGRAM, DIGITAL ([id number]=[id number]) Routine 01/31/2018 5:10 PM CDT Encounter for screening mammogram for malignant neoplasm of breast from Last 3 Months or Most Recently Relevant to Health Maintenance Results * RANDA SCREEN MAMMOGRAM, DIGITAL (FLE=[id number]) (01/31/2018 5:10 PM CDT) Anatomical Region Laterality Modality Breast Bilateral Mammography 02/01/2018 3:21 PM CDT Narrative 02/01/2018 3:24 PM CDT DATE OF SERVICE: 01.31.2018 BILATERAL SCREENING MAMMOGRAM WITH CAD WITH TOMOSYNTHESIS CLINICAL INDICATION: ??Screening mammogram. AGE: 57 years. COMPARISON: ??2016, 2015, 2014, 2013, 2012 TECHNIQUE: ?? Bilateral screening digital mammographic views with tomosynthesis. Images were checked with the [employer] CAD system. FINDINGS: The breasts are heterogeneously dense, which may obscure small masses. ??There are no suspicious findings present in either breast. IMPRESSION AND RECOMMENDATION: No mammographic evidence of malignancy. ??If there is no palpable concern, the patient should return in 1 year for annual screening mammography. ??Breast cancer risk assessment was performed. The patient's breast cancer risk assessment score does not meet the threshold for the high risk category. BI-RADS Final Assessment Category 1: Negative Management Recommendation: Routine screening mammography. This was interpreted by Raissa Gray M.D. ?? Mildred Drake MD RIS MAMMO from Last 3 Months or Most Recently Relevant to Health Maintenance Care Teams Recycle Worker Relationship Specialty Start Date End Date Mildred Drake MD [address] [place] [address] PCP - General Family Practice 10/08/12
--- OUTSIDE RECORDS SUMMARY | 2024-05-19 10:16 | XMS_ITS | Clinical Summary ---
Author Organization [facility] Address [address] [place] [address] Care Team Providers Care Flexographic Printing Press Operator Name Role Phone Mildred Drake MD Primary Care Provider [phone] Allergies Active Allergy Reactions Criticality Noted Date [...] Next Due >=3 YRS QUAD MULTIDOSE VIAL (90738) FLU CLINIC 05/31/2015 Influenza 06/03/2017, 6,06/09/2014, 013,07/04/2012,05/06/2009,07/01/2007 TDAP 05/06/2009 Family History Medical History Relation Comments Cancer Father prostate Heart Disorder Father AAA. [place] 73y Cancer Mother BCC Other Mother OA Psychiatric Mother Psychiatric Sister 1 psoriatic arthritis Son Diabetes Neg Relation Status Comments Daughter Alive Father Alive Mother Alive Sister 1 Alive Sister 2 Alive Son Alive Social History Tobacco Use Types Packs/Day Years [...] Mass Index 29.23 03/18/2018 12:42 PM CDT Plan of Treatment Health Maintenance Due Date Last Done Comments Annual Physical 1961 Colonoscopy Discontinued 03/29/2012 Colorectal Cancer Screening Discontinued Mammogram Discontinued 01/31/2018, 01/02, 01/24/2016, Additional history exists Cologuard (FIT-DNA) Discontinued Colonography Discontinued FIT/FOBT Colorectal Screening Discontinued Flexible Sigmoidoscopy Discontinued Procedures Procedure Name Priority Date/Time Associated Diagnosis Comments RANDA SCREEN MAMMOGRAM, DIGITAL ([id number]) Routine 01/31/2018 5:10 PM CDT Encounter for screening mammogram for malignant neoplasm of breast from Last 3 Months or Most Recently Relevant to Health Maintenance Results * RANDA SCREEN MAMMOGRAM, DIGITAL (XTA=[id number]) (01/31/2018 5:10 PM CDT) Anatomical Region Laterality Modality Breast Bilateral Mammography 02/01/2018 3:21 PM CDT Narrative 02/01/2018 3:24 PM CDT DATE OF SERVICE: 01.31.2018 BILATERAL SCREENING MAMMOGRAM WITH CAD WITH TOMOSYNTHESIS CLINICAL INDICATION: ??Screening mammogram. AGE: 57 years. COMPARISON: ??2017, 2016, 2014, 2013, 2012 TECHNIQUE: ?? Bilateral screening digital mammographic views with tomosynthesis. Images were checked with the [employer] CAD system. FINDINGS: The breasts are heterogeneously [...] was interpreted by Raissa Gray M.D. ?? Mlidred Drake MD RIS MAMMO from Last 3 Months or Most Recently Relevant to Health Maintenance Care Teams Flexographic Printing Press Operator Relationship Specialty Start Date End Date Mildred Drake MD [address] [address] PCP - General Family Practice 10/08/12
--- OUTSIDE RECORDS SUMMARY | 2024-05-19 10:16 | XMS_ITS | Encounter Summary ---
Author Organization [place] Address [address] [place] [place] [address] Care Team Providers Care Farm Agent Name Role Phone Yamila Dave PA-C Primary Care Provider Chadwick Jensen NP Unavailable [phone] Rahul Ford MD Unavailable Un available Rahul Ford MD Unavailable Un available Reason for Visit * Reason Comments Advance Care Planning Encounter Details Date Type Department Care Team (Latest Contact Info) Description 04/04/2024 Documentation Only [facility] [address] [facility] [address] [place] [phone] Susan Luo Advance Care Planning Social History Tobacco Use Types Packs/Day Years [...] Department Care Team (Latest Contact Info) Description 06/12/2024 9:15 AM CDT Hospital Encounter [facility] [address] [place] [phone] Kong Diop MD [facility] [address] [place] [address] 06/12/2024 9:15 AM CDT - 06/12/2024 12:45 PM CDT Surgery [facility] [address] [place] [phone] Kong Diop MD [facility] [address] [place] [address] RIGHT TOTAL HIP ARTHROPLASTY DIRECT ANTERIOR APPROACH WITH ORTHO GRID Scheduled Procedures Name Priority Associated Diagnoses Date/Ti me ARTHROPLASTY, HIP, TOTAL, DIRECT ANTERIOR APPROACH, USING ORTHOGRID Degenerative joint disease (DJD) of hip 06/12/2024 9:15 AM CDT documented as of this encounter Visit Diagnoses Not on filedocumented in this encounter Care Teams Farm Agent Relationship Specialty Start Date End Date Yamila Dave PA-C [facility] [address] [place] [address] PCP - General Physician Sales Development Coordinator 04/14/20 Chadwick Jensen NP [address] [place] [address] Nurse Practitioner Cardiovascular Disease 11/15/22 Rahul Ford MD MD Cardiovascular Disease 01/24/24 Rahul Ford MD Assigned Heart and Vascular Provider 02/24/24 documented as of this encounter
--- OUTSIDE RECORDS SUMMARY | 2024-05-19 10:16 | XMS_ITS | Referral Summary ---
Author Organization [place] Address [address] [place] [address] Care Team Providers Care Hazmat Truck Driver Name Role Phone Yamila Dave PA-C Primary Care Provider Chadwick Jensen NP Unavailable Rahul Ford MD Unavailable Un available Rahul Ford MD Unavailable Un available Encounters Date Type Department Care Team Description 04/04/2024 Documentation Only [facility] [address] [facility] [address] [place] [address] Susan Luo Advance Care Planning 03/29/2024 MyC Medical Advice Initial Department [facility] [place] [place] 03/29/2024 MyC Medical Advice Initial Department [facility] [place] 03/20/2024 5:29 AM CDT - 03/21/2024 1:10 PM CDT Hospital Encounter [facility] [address] [place] [address] Kong Diop MD Status post total hip replacement, left (Primary Dx) Discharge Disposition: Home or Self Care 03/20/2024 Travel 03/20/2024 7:30 AM CDT - 03/20/2024 11:00 AM CDT Surgery [facility] [address] [place] [phone] Kong Diop MD LEFT TOTAL HIP ARTHROPLASTY DIRECT ANTERIOR APPROACH WITH ORTHOGRID 03/20/2024 7:38 AM CDT Anesthesia Event [facility] [address] [place] [phone] Brayan Goodwin MD from Last 3 Months Allergies Active Allergy [...] mg daily Active atorvastatin (LIPITOR) 40 MG tabletIndications:C oronary artery disease 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 angina pectoris,Palpitatio ns Take 1 tablet (40 mg) by mouth daily 90 tablet 3 04/06/2022 Active losartan (COZAAR) 100 MG tabletIndications:B enign essential hypertension Take 1 tablet (100 mg) by mouth daily 90 tablet 02/23/2023 Active metoprolol tartrate (LOPRESSOR) 25 MG tabletIndications:C oronary artery disease 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 angina pectoris,Palpitatio ns Take 1 tablet (25 mg) by mouth 2 times daily 180 tablet 02/23/2023 Active senna-docusate (SENOKOT-S/PERICOLA CE) 8.6-50 MG tabletIndications:S tatus post total hip replacement, left Take 1-2 tablets by mouth 2 times daily Take while on oral narcotics to prevent or treat constipation. 30 tablet 03/20/2024 Active acetaminophen (TYLENOL) 325 MG tabletIndications:S tatus post total hip replacement, left Take 3 tablets (975 mg) by mouth every 6 hours as needed for mild pain 100 tablet 03/20/2024 Active meloxicam (MOBIC) 15 MG tabletIndications:S tatus post total hip replacement, left Take 1 tablet (15 mg) by mouth daily for 42 days 42 tablet 03/20/2024 Active oxyCODONE (ROXICODONE) 5 MG tabletIndications:S tatus post total hip replacement, left Take 0.5-1 tablets (2.5-5 mg) by mouth every 6 hours as needed for pain Take 1/2 tablet to 1 tablet every 4-6 hours as needed for moderate to advanced pain. NOT TO EXCEED 6 TABLETS IN 1 DAY 30 tablet 03/21/2024 Active aspirin (ASA) 325 MG EC tabletIndications:S tatus post total hip replacement, left Take 1 tablet (325 mg) by mouth daily for 42 days 42 tablet 03/20/2024 05/01/2024 Active Problems Problem Noted Date Diagnosed Date [...] Description 06/12/2024 9:15 AM CDT Hospital Encounter [facility] [address] [place] [phone] Kong Diop MD [facility] [address] [address] 06/12/2024 9:15 AM CDT - 06/12/2024 12:45 PM CDT [facility] [address] [place] [phone] Kong Diop MD [facility] [address] [address] RIGHT TOTAL HIP ARTHROPLASTY DIRECT ANTERIOR APPROACH WITH ORTHO GRID Scheduled Procedures Name Priority Associated Diagnoses Date/Ti me ARTHROPLASTY, HIP, TOTAL, DIRECT ANTERIOR APPROACH, USING ORTHOGRID Degenerative joint disease (DJD) of hip 06/12/2024 9:15 AM CDT Medical Devices Implanted Type Area [place] Machine Operator Device Identifier Shelf Expiration Date Model / Serial / Lot Imp [place] Hole Eliminator Hip Depuy Duraloc 1246-03-000 - [id number] Implanted:Qty : 1 on 03/20/2024 by Kong Diop MD at [facility] Metallic Hardware/An chor Left: Hip [employer] [id number] 01/31/2034 [id number] / / [id number] Imp Scr Bone Can Jose 6.5x35mm 1217-35-500 - [id number] Implanted:Qty : 1 on 03/20/2024 by Kong Diop MD at [facility] Metallic Hardware/An chor Left: Hip [employer] [id number] 10/31/2032 [id number] / / [id number] Imp Scr Bone Can Jose 6.5x20mm 1217-20500 - [id number] Implanted:Qty : 1 on 03/20/2024 by Kong Diop MD at [facility] Metallic Hardware/An chor Left: Hip [employer] [id number] 12/31/2033 [id number] / / [id number] Imp Cup Jose [place] 52mm 1217-22-052 - [id number] Implanted:Qty : 1 on 03/20/2024 by Kong Diop MD at [facility] Total Joint Component/I nsert Left: Hip [employer] [id number] 12/31/2033 [id number] / / [id number] Imp Insert Hip Depuy [place] Altrx 58x31lm 1221-36052 - [id number] Implanted:Qty : 1 on 03/20/2024 by Kong Diop MD at [facility] Total Joint Component/I nsert Left: Hip [employer] [id number] 01/01/2028 1221-36-052 / / [id number] Imp Stem Fem Depuy Actis Collar Hi-Offset Sz 2mm - [id number] Implanted:Qty : 1 on 03/20/2024 by Kong Diop MD at [facility] Total Joint Component/I nsert Left: Hip [employer] [id number] / / Imp Head Femoral Depuy Ceramic 36mm +1.5mm 1365-36-310 - [id number] Implanted:Qty : 1 on 03/20/2024 by Kong Diop MD at [facility] Total Joint Component/I nsert Left: Hip [employer] [facility]- [id number] 12/31/2028 [id number] / / [id number] Procedures Procedure Name Priority Date/Time Associated Diagnosis [...] - HIM SCAN 02/28/2024 12:00 AM CDT LIPID REFLEX TO DIRECT LDL PANEL Routine 01/29/2024 8:56 AM CDT Coronary artery disease 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 floor, [address] [place] [address], [facility] [phone] * (ABNORMAL) Lactic Acid Whole Blood w/ [...] MD LAB - BLOOD ORDERAB LES LABORATORY [facility] [address], [address] [place] [address], [place] [phone] * XR Pelvis w Hip Port Left 1 View (03/20/2024 11:20 AM CDT) Anatomical Region Laterality Modality Abdomen/Pelvis Left Digital Radiogra phy Impressions 03/20/2024 11:25 AM CDT IMPRESSION: Status post recent left total hip arthroplasty. No immediate hardware complication. Expected postsurgical soft tissue edema and subcutaneous emphysema. No acute fracture or malalignment. LB TINEO MD SYSTEM ID: ??[id number] Narrative 03/20/2024 11:25 AM CDT XR PELVIS [...] or malalignment. LB TINEO MD SYSTEM ID: [id number] Kong Diop MD IMG DIAGNOSTIC IMAGI NG ORDERABLES * XR Surgery DULCE L/T 5 Min Fluoro w Stills (03/20/2024 9:31 AM CDT) Anatomical Region Laterality Modality Abdomen/Pelvis Radio Fluoroscop y Impressions 03/20/2024 9:33 AM CDT IMPRESSION: Intraprocedural spot films demonstrate placement of a left total hip arthroplasty. Please reference the surgical report for further details. LB TINEO MD SYSTEM ID: ??[id number] Narrative 03/20/2024 9:33 AM CDT XR SURGERY [...] further details. LB TINEO MD SYSTEM ID: [id number] Kong Diop MD IMG DIAGNOSTIC IMAGI NG ORDERABLES * ANE AIRWAY ETT PERFORMABLE (03/20/2024 7:48 AM CDT) Narrative Diana Hogan APRN MANAGER FILE - 03/20/2024 7:48 AM CDT Diana Hogan APRN MANAGER FILE ? 03/20/2024 ??8:05 AM Airway ? Patient location during procedure: OR ? Procedure Start/Stop Times: 03/20/2024 7:48 AM Staff - ? Anesthesiologist: ??Brayan Goodwin MD ? MANAGER FILE: Diana Hogan APRN CRNA ? Other Anesthesia Staff: Rubi Franks RN ? Performed By: SRNA and with CRNAs ? Procedure performed by resident/fellow/MANAGER FILE in presence of a teaching physician. Consent [...] Time: 03/20/2024 7:48 AM Brayan Goodwin MD [place] [facility] * Potassium (03/20/2024 7:11 AM CDT) Potassium 4.1 3.4 - 5.3 mmol/L 03/20/2024 7:52 AM CDT LABORATORY Blood STRUCTURE OF RIGHT UPPER LIMB / Unknown Venipuncture / Unknown 03/20/2024 7:11 AM CDT 03/20/2024 7:31 AM CDT Brayan Goodwin MD LAB - BLOOD ORDERA BLES LABORATORY [facility] [address] floor, [address] [place] [address], [place] [phone] * Creatinine (03/20/2024 7:11 AM CDT) Creatinine 0.77 0.51 - 0.95 mg/dL 03/20/2024 7:49 PM CDT LABORATORY GFR Estimate 87 >60 mL/min/1.7 3m2 03/20/2024 7:49 PM CDT LABORATORY Comment:eGFR calculated usin 2020 CKD-EPI equation. Blood STRUCTURE OF RIGHT UPPER LIMB / Unknown Venipuncture / Unknown 03/20/2024 7:11 AM CDT 03/20/2024 7:31 AM CDT Kong Diop MD LAB - BLOOD ORDERABL ES LABORATORY [facility] [address], [address] [place] [address], [place] [phone] * Glucose (03/20/2024 7:11 AM CDT) Glucose 98 70 - 99 mg/dL 03/20/2024 7:52 AM CDT LABORATORY Patient Fasting > 8hrs? Yes 03/20/2024 7:52 AM CDT LABORATORY Blood STRUCTURE OF RIGHT UPPER LIMB / Unknown Venipuncture / Unknown 03/20/2024 7:11 AM CDT 03/20/2024 7:31 AM CDT Brayan Goodwin MD LAB - BLOOD ORDERA BLES LABORATORY [facility] [address] floor, [address] [place] [address], [facility] [phone] * EKG Cardiac - HIM Scan (02/28/2024 12:00 AM CDT) Only the most recent of3 resultswithin the time period is included. 02/28/2024 Provider Outside ECG ORDERABLES * (ABNORMAL) Lipid panel reflex to direct [...] NP LAB - BLOOD ORDERABL ES LABORATORY [facility] [address] [facility] [place] [address] [address] (1st floor, no room number) [place] [address] * Mammogram - HIM Scan (08/24/2020) Negative Anatomical Region Laterality Modality Other Provider Outside IMG MAMMOGRAPHY ORDE ANGEL from Last 3 Months or Most Recently Relevant to Health Maintenance Advance Directives For more information, please contact: [phone] Documents on File Type Date Recorded Patient Marker Machine Expl anation Advance Directives and Living Will 04/04/2024 Health Care Directiv e 02/07/2022 * Full Code (Latest Code Status on File) Date Activated Date Inactivated Comments 03/20/2024 11:54 AM 03/20/2024 7:44 PM All basic a nd advanced life-sustaining interventions are performed as appropriate Question Answer Comments Code status determined by: Unable to det ermine; FULL CODE until documents or legal decision maker available Healthcare Agents on File Name Relationship Healthcare Agent Relationshi p Communication Batool Chandra Daughter First Alternate Health Care Agent Calos Song Son Health Care Agent Care Teams Hazmat Truck Driver Relationship Specialty Start Date End Date Yamila Dave PA-C [facility] [address] [place] [address] PCP - General Physician Suspect Artist 04/14/20 Chadwick Jensen NP [address] [place] [address] Nurse Practitioner Cardiovascular Disease 11/15/22 Rahul Ford MD MD Cardiovascular Disease 01/24/24 Rahul Ford MD Assigned Heart and Vascular Provider 02/24/24
--- OUTSIDE RECORDS SUMMARY | 2024-05-19 10:16 | XMS_ITS | Encounter Summary ---
Author Organization [facility] Address [address] [facility] [place] [address] Care Team Providers Care Slot Machine Repairer Name Role Phone Yamila Dave PA-C Primary Care Provider Chadwick Jensen NP Unavailable [phone] Rahul Ford MD Unavailable Un available Rahul Ford MD Unavailable Un available Encounter Details Date Type Department Care Team (Late st Contact Info) Description 03/29/2024 MyC Medical Advice Initial Department [facility] Social History Tobacco Use Types Packs/Day Years [...] Description 06/12/2024 9:15 AM CDT Hospital Encounter [facility] [address] [place] [phone] Kong Diop MD [facility] [address] [place] [address] 06/12/2024 9:15 AM CDT - 06/12/2024 12:45 PM CDT Surgery [facility] [address] [place] [phone] Kong Diop MD [facility] [address] [place] [address] RIGHT TOTAL HIP ARTHROPLASTY DIRECT ANTERIOR APPROACH WITH ORTHO GRID Scheduled Procedures Name Priority Associated Diagnoses Date/Ti me ARTHROPLASTY, HIP, TOTAL, DIRECT ANTERIOR APPROACH, USING ORTHOGRID Degenerative joint disease (DJD) of hip 06/12/2024 9:15 AM CDT documented as of this encounter Visit Diagnoses Not on filedocumented in this encounter Care Teams Slot Machine Repairer Relationship Specialty Start Date End Date Yamila Dave PA-C [facility] [address] [place] [address] PCP - General Physician Nail Puller 04/14/20 Chadwick Jensen NP [address] [place] [address] Nurse Practitioner Cardiovascular Disease 11/15/22 Rahul Ford MD MD Cardiovascular Disease 01/24/24 Rahul Ford MD Assigned Heart and Vascular Provider 02/24/24 documented as of this encounter
--- OUTSIDE RECORDS SUMMARY | 2024-05-19 10:16 | XMS_ITS | Encounter Summary ---
Author Organization [facility] Address [address] [facility] [place] [address] Care Team Providers Care Digital Marketing Program Manager Name Role Phone Yamila Dave PA-C Primary Care Provider Chadwick Jensen NP Unavailable [phone] Rahul Ford MD Unavailable Un available Rahul Ford MD Unavailable Un available Encounter Details Date Type Department Care Team (Late st Contact Info) Description 03/29/2024 MyC Medical Advice Initial Department [facility] Social History Tobacco Use [...] Description 06/12/2024 9:15 AM CDT Hospital Encounter [facility] Services [address] [place] [phone] Kong Diop MD [facility] [address] [place] [address] 06/12/2024 9:15 AM CDT - 06/12/2024 12:45 PM CDT Surgery [facility] [address] [place] [phone] Kong Diop MD [facility] [address] [place] [address] RIGHT TOTAL HIP ARTHROPLASTY DIRECT ANTERIOR APPROACH WITH ORTHO GRID Scheduled Procedures Name Priority Associated Diagnoses Date/Ti me ARTHROPLASTY, HIP, TOTAL, DIRECT ANTERIOR APPROACH, USING ORTHOGRID Degenerative joint disease (DJD) of hip 06/12/2024 9:15 AM CDT documented as of this encounter Visit Diagnoses Not on filedocumented in this encounter Care Teams Digital Marketing Program Manager Relationship Specialty Start Date End Date Yamila Dave PA-C [facility] [address] [place] [address] PCP - General Physician Supervisor [employer] 04/14/20 Chadwick Jensen NP [address] [place] [address] Nurse Practitioner Cardiovascular Disease 11/15/22 Rahul Ford MD MD Cardiovascular Disease 01/24/24 Rahul Ford MD Assigned Heart and Vascular Provider 02/24/24 documented as of this encounter
--- OUTSIDE RECORDS SUMMARY | 2024-05-19 10:16 | XMS_ITS | Clinical Summary ---
Author Organization [place] Address [address] [place] [address] Care Team Providers Care Manager Of Network Name Role Phone Yamila Dave PA-C Primary Care Provider Chadwick Jensen NP Unavailable [phone] Rahul Ford MD Unavailable Un available Rahul [...] 40 MG tabletIndications:C oronary artery disease involving cachil dehe coronary artery of cachil dehe heart without angina pectoris,Palpitatio ns Take 1 tablet (40 mg) by mouth daily 90 tablet 3 04/06/2022 Active losartan (COZAAR) 100 MG tabletIndications:B enign essential hypertension Take 1 tablet (100 mg) by mouth daily 90 tablet 02/23/2023 Active metoprolol tartrate (LOPRESSOR) 25 MG tabletIndications:C oronary artery disease involving cachil dehe coronary artery of cachil dehe heart without angina pectoris,Palpitatio ns Take 1 [...] Team Description 04/04/2024 Documentation Only [facility] [address] [place] [address] Susan Luo Advance Care Planning 03/29/2024 MyC Medical Advice Initial Department Jean Nuñez 03/29/2024 MyC Medical Advice Initial Department [facility] 03/20/2024 7:38 AM CDT Anesthesia Event [facility] [address] [place] [address] Brayan Goodwin MD 03/20/2024 7:30 AM CDT - 03/20/2024 11:00 AM CDT Surgery [facility] [address] [place] [address] Kong Diop MD LEFT TOTAL HIP ARTHROPLASTY DIRECT ANTERIOR APPROACH WITH ORTHOGRID 03/20/2024 5:29 AM CDT - 03/21/2024 1:10 PM CDT Hospital Encounter [facility] [address] [facility] [place] [address] Kong Diop MD Status post total hip replacement, left (Primary Dx) Discharge Disposition: Home or Self Care 03/20/2024 Travel from Last 3 Months Immunizations Name [...] Description 06/12/2024 9:15 AM CDT Hospital Encounter [facility] PeriOP Services [address] [place] [address] Kong Diop MD [facility] [address] [id number] 06/12/2024 9:15 AM CDT - 06/12/2024 12:45 PM CDT Surgery [facility] [address] [place] [address] Kong Diop MD [facility] [address] [address] RIGHT TOTAL HIP ARTHROPLASTY DIRECT ANTERIOR APPROACH WITH ORTHO GRID Scheduled Procedures Name Priority Associated Diagnoses Date/Ti me ARTHROPLASTY, HIP, TOTAL, DIRECT ANTERIOR APPROACH, USING ORTHOGRID Degenerative joint disease (DJD) of hip 06/12/2024 9:15 AM CDT Health Maintenance Due Date Last Done Comments ANNUAL REVIEW OF HM ORDERS 1961 CT COLONOGRAPHY 1961 FIT 1961 FLEX SIG 1961 sDNA (Cologuard) 1961 COLONOSCOPY 1971 COLORECTAL CANCER SCREENING 1971 HIV SCREENING 1976 HEPATITIS C SCREENING 1979 YEARLY PREVENTIVE VISIT 01/17/2019 01/17/2018 RSV VACCINE (1 - Risk 60-74 years 1-dose series) 2021 MAMMO SCREENING 08/24/2022 08/24/2020, 08/04, 01/31/2018, Additional history exists COVID-19 Vaccine ( season) 2024 08/01/2021, 12/30/2020, 12/09/2020 INFLUENZA VACCINE (#1) 2024 , 06/19/2022, 06/13/2022, Additional history exists LIPID 01/28/2025 01/29/2024, 02/02, 02/22/2022, Additional history exists PAP 06/15/2025 06/15/2022, 06/03, 04/23/2019 GLUCOSE 03/20/2027 03/20/2024, 01/02, 02/23/2023, Additional history exists ADVANCE CARE PLANNING 04/04/2029 04/04/2024 DTAP/TDAP/TD IMMUNIZATION (3 - Td or Tdap) [...] this topic Medical Devices Implanted Type Area Account Manager B2B Device Identifier Shelf Expiration Date Model / Serial / Lot Imp [place]ira Hole Eliminator Hip Depuy Duraloc 1246-03-000 - [id number] Implanted:Qty : 1 on 03/20/2024 by Kong Diop MD at [facility] Metallic Hardware/An chor Left: Hip [employer] [id number] 01/31/2034 [id number] / / [id number] Imp Scr Bone Can Jose 6.5x35mm 1217-35500 - [id number] Implanted:Qty : 1 on 03/20/2024 by Kong Diop MD at [facility] Metallic Hardware/An chor Left: Hip [employer] [id number] 10/31/2032 [id number] / / [id number] Imp Scr Bone Can Jose 6.5x20mm 1217-500 - [id number] Implanted:Qty : 1 on 03/20/2024 by Kong Diop MD at [facility] Metallic Hardware/An chor Left: Hip [employer] [id number] 12/31/2033 [id number] / / [id number] Imp Cup Jose Fromberg 52mm 1217-22-052 - [id number] Implanted:Qty : 1 on 03/20/2024 by Kong Diop MD at [facility] Total Joint Component/I nsert Left: Hip [employer] [id number] 12/31/2033 [id number] / / [id number] Imp Insert Hip Depuy Fromberg Altrx [id number] [id number] - [id number] Implanted:Qty : 1 on 03/20/2024 by Kong Diop MD at [facility] Total Joint Component/I nsert Left: Hip [employer] [id number] 01/01/2028 1221-36-052 / / [id number] Imp Stem Fem Depuy Actis Collar Hi-Offset Sz 2mm - [id number] Implanted:Qty : 1 on 03/20/2024 by Kong Diop MD at [facility] Total Joint Component/I nsert Left: Hip [employer] [id number] / / Imp Head Femoral Depuy Ceramic 36mm +1.5mm 1365-36-310 - [id number] Implanted:Qty : 1 on 03/20/2024 by Kong Diop MD at [facility] Total Joint Component/I nsert Left: Hip [employer] [facility]- [id number] 12/31/2028 [id number] / / [id number] Procedures Procedure Name Priority Date/Time Associated Diagnosis [...] 8:56 AM CDT Coronary artery disease involving cachil dehe coronary artery of cachil dehe heart without angina pectoris Benign essential hypertension [...] MD LAB - BLOOD ORDERAB LES LABORATORY [facility] [address] floor, [address] [place] [address], [place] [phone] * (ABNORMAL) Lactic Acid Whole Blood w/ [...] MD LAB - BLOOD ORDERAB LES LABORATORY [facility] [address] floor, [address] [place] [address], [place] [phone] * XR Pelvis w Hip Port Left 1 View (03/20/2024 11:20 AM CDT) Anatomical Region Laterality Modality Abdomen/Pelvis Left Digital Radiogra phy Impressions 03/20/2024 11:25 AM CDT IMPRESSION: Status post recent left total hip arthroplasty. No immediate hardware complication. Expected postsurgical soft tissue edema and subcutaneous emphysema. No acute fracture or malalignment. LB TINEO MD SYSTEM ID: ??[id number] Narrative 03/20/2024 11:25 AM CDT XR PELVIS [...] or malalignment. LB TINEO MD SYSTEM ID: [id number] Kong Diop MD IMG DIAGNOSTIC IMAGI NG ORDERABLES * XR Surgery DULCE L/T 5 Min Fluoro w Stills (03/20/2024 9:31 AM CDT) Anatomical Region Laterality Modality Abdomen/Pelvis Radio Fluoroscop y Impressions 03/20/2024 9:33 AM CDT IMPRESSION: Intraprocedural spot films demonstrate placement of a left total hip arthroplasty. Please reference the surgical report for further details. LB TINEO MD SYSTEM ID: ??[id number] Narrative 03/20/2024 9:33 AM CDT XR SURGERY [...] further details. LB TINEO MD SYSTEM ID: [id number] Kong Diop MD IMG DIAGNOSTIC IMAGI NG ORDERABLES * ANE AIRWAY ETT PERFORMABLE (03/20/2024 7:48 AM CDT) Narrative Diana Hogan APRN WELLNESS PROGRAM COORDINATOR - 03/20/2024 7:48 AM CDT Diana Hogan APRN WELLNESS PROGRAM COORDINATOR ? 03/20/2024 ??8:05 AM Airway ? Patient location during procedure: OR ? Procedure Start/Stop Times: 03/20/2024 7:48 AM Staff - ? Anesthesiologist: ??Brayan Goodwin MD ? WELLNESS PROGRAM COORDINATOR: Diana Hogan APRN WELLNESS PROGRAM COORDINATOR ? Other Anesthesia Staff: Rubi Franks RN ? Performed By: SRNA and with CRNAs ? Procedure performed by resident/fellow/WELLNESS PROGRAM COORDINATOR in presence of a teaching physician. Consent [...] Time: 03/20/2024 7:48 AM Brayan Goodwin MD [place] AN[facility] * Potassium (03/20/2024 7:11 AM CDT) Potassium 4.1 3.4 - 5.3 mmol/L 03/20/2024 7:52 AM CDT LABORATORY Blood STRUCTURE OF RIGHT UPPER LIMB / Unknown Venipuncture / Unknown 03/20/2024 7:11 AM CDT 03/20/2024 7:31 AM CDT Brayan Goodwin MD LAB - BLOOD ORDERA BLES LABORATORY [facility] [address] floor, [address] [place] [address], [place] [phone] * Creatinine (03/20/2024 7:11 AM CDT) Creatinine 0.77 0.51 - 0.95 mg/dL 03/20/2024 7:49 PM CDT LABORATORY GFR Estimate 87 >60 mL/min/1.7 3m2 03/20/2024 7:49 PM CDT LABORATORY Comment:eGFR calculated usin 2020 CKD-EPI equation. Blood STRUCTURE OF RIGHT UPPER LIMB / Unknown Venipuncture / Unknown 03/20/2024 7:11 AM CDT 03/20/2024 7:31 AM CDT Kong Diop MD LAB - BLOOD ORDERABL ES LABORATORY [facility] [address] floor, [address] [place] [address], [place] [phone] * Glucose (03/20/2024 7:11 AM CDT) Glucose 98 70 - 99 mg/dL 03/20/2024 7:52 AM CDT SH LABORATORY Patient Fasting > 8hrs? Yes 03/20/2024 7:52 AM CDT SH LABORATORY Blood STRUCTURE OF RIGHT UPPER LIMB / Unknown Venipuncture / Unknown 03/20/2024 7:11 AM CDT 03/20/2024 7:31 AM CDT Brayan Goodwin MD LAB - BLOOD ORDERA BLES LABORATORY [facility] Lab [address] floor, [address] [place] [address], [facility] [phone] * EKG Cardiac - HIM Scan (02/28/2024 [...] NP LAB - BLOOD ORDERABL ES LABORATORY [facility] Lab [address] [facility] [address] [facility], [address] [place] [address], [facility] LABORATORY [facility] Acute Care Lab [address] [facility] (1st floor, no room number) [place] [address] * Mammogram - HIM Scan (08/24/2020) Negative Anatomical Region Laterality Modality Other Provider Outside IMG MAMMOGRAPHY ORDE RABDARREL from Last 3 Months or Most Recently Relevant to Health Maintenance Advance Directives For more information, please contact: [phone] Documents on File Type Date Recorded Patient Deputy Clerk Of Superior Court Expl anation Advance Directives and Living Will [...] Song Son Health Care Agent Care Teams Manager Of Network Relationship Specialty Start Date End Date Yamila Dave PA-C [facility] [address] [place] [address] PCP - General Physician Early Intervention School Psychologist 04/14/20 Chadwick Jensen NP [address] [place] [address] Nurse Practitioner Cardiovascular Disease 11/15/22 Rahul Ford MD MD Cardiovascular Disease 01/24/24 Rahul Ford MD Assigned Heart and Vascular Provider 02/24/24
--- OUTSIDE RECORDS SUMMARY | 2024-05-19 10:17 | XMS_ITS | Encounter Summary ---
Author Organization [place] Address [address] [facility] [place] [address] Care Team Providers Care Data Processing Control Clerk Name Role Phone Yamila Dave PA-C Primary Care Provider Chadwick Jensen NP Unavailable [phone] Rahul Ford MD Unavailable Un available Rahul Ford MD Unavailable Un available Reason for Visit * Auth/Cert (Routine) Specialty Diagnoses / Procedures Referred By Vickie zuniga Referred To Contact Surgery Diagnoses Degenerative joint disease of left hip Degenerative joint disease of left hip [M16.12] Procedures MA TOTAL HIP ARTHROPLASTY LEFT TOTAL HIP ARTHROPLASTY DIRECT ANTERIOR APPROACH WITH ORTHOGRID [facility] Periop Services [address] [place] [address] Referral ID Status Reason Start Date Expiration Date Visits Re quested Visits Authorized [id number] 1 1 Encounter Details Date Type Department Care Team (Late st Contact Info) Description 03/20/2024 7:38 AM CDT Anesthesia Event [facility] PeriOP Services [address] [place] [address] Brayan Goodwin MD [facility] ANESTHESIOLOGY [address] [place] [id number] Anesthesia Record Procedure Summary Procedure Name Responsible [...] recorded are pre- induction. Diana Hogan APRN LPN PER DIEM 0743 An Induction 0748 An Intubation 0749 MD Present 0752 Anesthesia Ready for Procedu re 0822 Timeout 0823 AN INCISION 0845 Quick Note EMR reviewed Sage sidhu 0949 AN Extubation All extubation criteria met prior to removal. 0950 MD Present 0951 an stop data 0957 An Stop Electronically signed by Zoie Sullivan APRN LPN PER DIEM on March 20, 2024 9:57 AM Meds [...] left total hip 03/20/24 0000 by Wesley Leonard, RN Peripheral IV 03/20/24; 0701; 20 G ; Left; Hand; Chlorhexidine; Tolerated well 03/20/24 0701 by Lucille Davis RN 03/21/24 1030 by Mayra Butts, RN ETT Placement Date: 03/20/24; Placement Time: 0748 (created via procedure documentation); Mask Ventilation: 1; Induction Type: Intravenous; Ease of Intubation: Easy; Technique: Video laryngoscopy; Tube Size: 7 mm; VL Blade Size: Zabala 3; Grade View: 1; Adjucts: Stylet; Placement Person: LPN PER DIEM Student; Attempts: 1 03/20/24 0748 by Diana Hogan APRN CRNA 03/20/24 0949 by Diana Hogan APRN CRNA documented in this encounter Social History Tobacco [...] Anesthesia Procedure Notes - Diana Hogan APRN CRNA - 03/20/2024 8:01 AM CDTAssociated Order(s): Airway Airway Patient location during procedure: OR Procedure Start/Stop Times: 03/20/2024 7:48 AM Staff - Anesthesiologist: Brayan Goodwin MD LPN PER DIEM: Diana Hogan APRN CRNA Other Anesthesia Staff: Rubi Franks RN Performed By: SRNA and with CRNAs Procedure performed by resident/fellow/LPN PER DIEM in presence of a teaching physician. Consent [...] (+) Dyslipidemia hypertension- - CAD - past DE (NSTEMI, no stents needed per patient) - [...] and realistic alternatives discussed. Questions answered and patient/business process representative(s) expressed understanding. - Discussed: - Discussed with: [...] Notes * Anesthesia Care Transfer Note - [place], Zoie Elisabeth, MONOTYPE SETTER LPN PER DIEM - 03/20/2024 9:57 AM CDT Patient: Kriss [...] data. Electronically Signed By: Zoie Sullivan APRN LPN PER DIEM March 20, 2024 9:57 AM documented in this encounter Plan of Treatment Upcoming Encounters Date Type Department Care Team (Latest Contact Info) Description 06/12/2024 9:15 AM CDT Hospital Encounter [facility] PeriOP Services [address] [place] [phone] Kong Diop MD [facility] [address] [place] [address] 06/12/2024 9:15 AM CDT - 06/12/2024 12:45 PM CDT [facility] [address] [place] [address] Kong Diop MD [facility] [address] [place] [address] RIGHT TOTAL HIP ARTHROPLASTY DIRECT ANTERIOR APPROACH [...] 7:48 AM CDT) Narrative Diana Hogan APRN LPN PER DIEM - 03/20/2024 7:48 AM CDT Diana Hogan APRN LPN PER DIEM ? 03/20/2024 ??8:05 AM Airway ? Patient location during procedure: OR ? Procedure Start/Stop Times: 03/20/2024 7:48 AM Staff - ? Anesthesiologist: ??Brayan Goodwin MD ? LPN PER DIEM: Diana Hogan APRN LPN PER DIEM ? Other Anesthesia Staff: Rubi Franks RN ? Performed By: SRNA and with CRNAs ? Procedure performed by resident/fellow/LPN PER DIEM in presence of a teaching physician. Consent [...] Medication Administration Time: 03/20/2024 7:48 AM Brayan MOTTA ANESTHESIA documented in this encounter Visit Diagnoses [...] (DILAUDID) injection Intravenous, PRN, Starting on Nathaly 7/18/24 at 0823, Anesthesia Intra-op $Given 03/20/2024 8:25 [...] mg documented in this encounter Care Teams Data Processing Control Clerk Relationship Specialty Start Date End Date Yamila Dave PA-C [facility] [address] [place] [address] PCP - General Physician Composition Mixer 04/14/20 Chadwick Jensen NP [address] [place] [address] Nurse Practitioner Cardiovascular Disease 11/15/22 Rahul Ford MD Cardiovascular Disease 01/24/24 Rahul Ford MD Assigned Heart and Vascular Provider 02/24/24 documented as of this encounter
--- OUTSIDE RECORDS SUMMARY | 2024-05-19 10:17 | XMS_ITS | Encounter Summary ---
Author Organization [place] Address [address] [place] [address] Care Team Providers Care Extension Course Coordinator Name Role Phone Yamila Dave PA-C Primary Care Provider Rahul Ford MD Unavailable Un available Chadwick Jensen NP Unavailable [phone] Chadwick Jensen NP Unavailable [phone] Chadwick Jensen NP Unavailable [phone] Rahul Ford MD Unavailable Un available Rahul Ford MD Unavailable Un available Rahul Ford MD Unavailable Un available Encounter Details Date Type Department Care Team (Late st Contact Info) Description 04/19/2022 External Order Results [facility] [address] [place] [address] Outside, Provider Social History Tobacco Use Types [...] Description 06/12/2024 9:15 AM CDT Hospital Encounter [facility] [address] [place] [address] Kong Diop MD [facility] [address] [facility] [address] [place] [address] 06/12/2024 9:15 AM CDT - 06/12/2024 12:45 PM CDT Surgery [facility] [address] [place] [phone] Kong Diop MD [facility] [address] [facility] [address] [place] [address] RIGHT TOTAL HIP ARTHROPLASTY DIRECT ANTERIOR APPROACH [...] 04/20/2022. Provider Outside LAB - BLOOD ORDERABL Performing Organization Address [facility] de Phone Number ABELARDO PFT NON-INTERFACED (ONBASE SCANS) * CBC [...] Blood 04/19/2022 12:0 0 PM CDT Nisha ARTHURE PFT - 04/20/2022 2:32 PM CDT Verified by Joshua Delacruz on 04/20/2022. Provider [facility] Performing Organization Address [facility] Phone Number ABELARDO PFT NON-INTERFACED (ONBASE SCANS) [...] ORDERABL ES ABELARDO PFAaron NON-INTERFACED (ONBASE SCANS) documented in this encounter Visit Diagnoses Not on filedocumented in this encounter Care Teams Extension Course Coordinator Relationship Specialty Start Date End Date Yamila Dave PA-C [address] [address] PCP - General Physician Steno Typist 04/14/20 Rahul Ford MD [address] [address] Assigned Heart and Vascular Provider 01/23/21 03/02/23 Chadwick Jensen NP [address] [place] [address] Nurse Practitioner Cardiovascular Disease 11/15/22 Chadwick Jensen NP [address] [place] [address] Assigned Heart and Vascular Provider 03/03/23 08/17/23 Chadwick Jensen NP [address] [place] [address] Assigned Heart and Vascular Provider 08/25/23 02/23/24 Rahul Ford MD Assigned Heart and Vascular Provider 08/18/23 08/24/23 Rahul Ford MD Cardiovascular Disease 01/24/24 Rahul Ford MD Assigned Heart and Vascular Provider 02/24/24 documented as of this encounter
--- OUTSIDE RECORDS SUMMARY | 2024-05-19 10:17 | XMS_ITS | Encounter Summary ---
Author Organization [place] Address [address] [facility] [place] [address] Care Team Providers Care Yarn Finisher Name Role Phone Yamila Dave PA-C Primary Care Provider Rahul Ford MD Unavailable Un available Milvia Tressakalina Graves PA-C Unavailable [phone] Rahul Ford MD Unavailable Un available Chadwick Jensen CABLE TECHNICIAN Unavailable [phone] Chadwick Jensen CABLE TECHNICIAN Unavailable [phone] Chadwick Jensen CABLE TECHNICIAN Unavailable [phone] Rahul Ford MD Unavailable Un available Rahul Ford MD Unavailable Un available Rahul Ford MD Unavailable Un available Encounter Details Date Type Department Care Team (Late st Contact Info) Description 09/23/2020 [facility] Medical Advice [facility] [place] [address] [place] [address] [address] [place] [address] Rahul Ford MD Social History Tobacco [...] COVID-19? No / Unsure 09/20/2020 7:44 AM NURSING INFORMATICS CLINICAL ANALYST documented as of this encounter Plan of Treatment Upcoming Encounters Date Type Department Care Team (Latest Contact Info) Description 06/12/2024 9:15 AM CDT Hospital Encounter [facility] [address] [place] [address] Kong Diop MD [facility] [address] [address] 06/12/2024 9:15 AM CDT - 06/12/2024 12:45 PM CDT Surgery [facility] [address] [place] [address] Kong Diop MD [facility] [address] [facility] [address] [place] [address] RIGHT TOTAL HIP ARTHROPLASTY DIRECT ANTERIOR APPROACH WITH ORTHO GRID Scheduled Procedures Name Priority Associated Diagnoses Date/Ti me ARTHROPLASTY, HIP, TOTAL, DIRECT ANTERIOR APPROACH, USING ORTHOGRID Degenerative joint disease (DJD) of hip 06/12/2024 9:15 AM CDT documented as of this encounter Visit Diagnoses Not on filedocumented in this encounter Care Teams Yarn Finisher Relationship Specialty Start Date End Date Yamila Dave PA-C [facility] [address] [place] [address] PCP - General Physician Applications Consultant 04/14/20 Rahul Ford MD Assigned Heart and Vascular Provider 06/25/20 11/16/20 Alo Steel PA-C [address] [place] [address] Assigned Heart and Vascular Provider 11/17/20 01/22/21 Rahul Ford MD [address] [place] [address] Assigned Heart and Vascular Provider 01/23/21 03/02/23 Chadwick Jensen NP [address] [place] [address] Nurse Practitioner Cardiovascular Disease 11/15/22 Chadwick Jensen NP [address] [place] [address] Assigned Heart and Vascular Provider 03/03/23 08/17/23 Chadwick Jensen NP [address] [place] [address] Assigned Heart and Vascular Provider 08/25/23 02/23/24 Rahul Ford MD Assigned Heart and Vascular Provider 08/18/23 08/24/23 Rahul Ford MD MD Cardiovascular Disease 01/24/24 Rahul Ford MD Assigned Heart and Vascular Provider 02/24/24 documented as of this encounter
--- OUTSIDE RECORDS SUMMARY | 2024-05-19 10:17 | XMS_ITS | Encounter Summary ---
Author Organization [facility] Address [address] [facility] [place] [address] Care Team Providers Care Real Estate Administrator Name Role Phone Yamila Dave PA-C Primary Care Provider Chadwick Jensen NP Unavailable Rahul Ford MD Unavailable Un available Rahul Ford MD Unavailable Un available Reason for Visit * Auth/Cert (Routine) Specialty Diagnoses / Procedures Referred By Vickie zuniga Referred To Contact Surgery Diagnoses Degenerative joint disease of left hip Degenerative joint disease of left hip [M16.12] Procedures [place] TOTAL HIP ARTHROPLASTY LEFT TOTAL HIP ARTHROPLASTY DIRECT ANTERIOR APPROACH WITH ORTHOGRID Sh Periop Services [address] [place] [address] Referral ID Status Reason Start Date Expiration Date Visits Re quested Visits Authorized [id number] 1 1 Encounter Details Date Type Department Care Team (Late st Contact Info) Description 03/20/2024 7:30 AM CDT - 03/20/2024 11:00 AM CDT Surgery [facility] PeriOP Services [address] [place] [address] Kai Diop MD [facility] [address] [place] [address] LEFT TOTAL HIP ARTHROPLASTY DIRECT ANTERIOR APPROACH [...] Surgeon Role Service Panel Garrett Cho Assisting Vice President Of Nursing Authoriz ation 1 Kai Diop MD Primary Orthopedics 1 Mariana Gamez PA-C Assisting Vice President Of Nursing Author ization 1 Special Needs Pt verified [...] needed for mild pain 100 tablet 03/20/2024 atorvastatin (LIPITOR) 40 MG tabletIndications: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,Palpitations Take 1 tablet (40 mg) by mouth daily 90 tablet 3 04/06/2022 citalopram (CELEXA) 20 MG tablet Take 20 mg by mouth daily 04/07/2020 golimumab (SIMPONI) 50 MG/0.5ML auto-injector pen 50 mg every 28 days losartan (COZAAR) 100 MG tabletIndications:Wang n essential hypertension Take 1 tablet (100 mg) by mouth daily 90 tablet 02/23/2023 meloxicam (MOBIC) 15 MG tabletIndications:Statu s post total hip replacement, left Take 1 tablet (15 mg) by mouth daily for 42 days 42 tablet 03/20/2024 metoprolol tartrate (LOPRESSOR) 25 MG tabletIndications: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 30 tablet 03/20/2024 aspirin (ASA) 325 MG EC tabletIndications:Statu s post total hip replacement, left Take 1 tablet (325 mg) by mouth daily for 42 days 42 tablet 03/20/2024 05/01/2024 documented as of this encounter Progress Notes * William Camejo, PT - 03/21/2024 1:10 PM CDT 03/20/24 1800 Appointment Info Signing Clinician's Name / Credentials (PT) William Camejo DPT Rehab Comments (PT) WBAT, no precautions Quick Adds Quick Adds Certification Living Environment People in Home sibling(s) Current Living Arrangements house Home Accessibility stairs to enter home Number of Stairs, Main Entrance 2 Stair Railings, Main Entrance none Transportation Anticipated family or friend will provide Living Environment Comments Pt lives in house with sister who can assist at discharge, 2 E[address] with all needs met on first floor Self-Care Usual Activity Tolerance good Current Activity Tolerance moderate Equipment Currently Used at Home none Fall history within last six months no Activity/Exercise/Self-Care Comment Pt IND with mobility and ADL's at baseline, has 4WW at home andSPC General Information Onset of Illness/Injury or Date of Surgery 03/20/24 Referring Physician Kai Diop MD Patient/Family Therapy Goals Statement (PT) go home Pertinent History of Current Problem (include personal factors and/or comorbidities that impact thePOC) Pt is a 63 y.o. female s/p L direct anterior ARVIND on 03/20/2024, POD#0 Existing Precautions/Restrictions fall;weight bearing Weight-Bearing Status - LLE weight-bearing as tolerated Weight-Bearing Status - RLE full weight-bearing Cognition Affect/Mental Status (Cognition) WNL Orientation Status (Cognition) oriented x 4 Follows Commands (Cognition) WNL Pain Assessment Patient Currently in Pain Yes, see Vital Sign flowsheet (10 L hip) Integumentary/Edema Integumentary/Edema Comments dressing over L anterior hip appears CDI Posture Posture Not impaired Range of Motion (ROM) Range of Motion ROM deficits secondary to pain;ROM deficits secondary to surgical procedure;ROM deficits secondary to swelling;ROM deficits secondary to weakness ROM Comment Deficits with L hip from post op discomfort, otherwise appears grossly WFL Strength (Manual Muscle Testing) Strength (Manual Muscle Testing) Able to perform R SLR;Able to perform L SLR;Deficits observed during functional mobility Strength Comments Not formally assessed, deficits with L hip post op, otherwise appears grossly >3/5 strength Bed Mobility Comment, (Bed Mobility) SBA Transfers Comment, (Transfers) sit<>stand with FWW CGA Gait/Stairs (Locomotion) [place] Level (Gait) contact guard Assistive Device (Gait) walker, front-wheeled Distance in Feet (Gait) 10' Pattern (Gait) step-through Deviations/Abnormal Patterns (Gait) antalgic;vincenzo decreased;gait speed decreased;stride length decreased;weight shifting decreased Maintains Weight-bearing Status (Gait) able to maintain Balance Balance Comments deficits with dynamic balance from baseline Sensory Examination Sensory Perception patient reports no sensory changes Clinical Impression Criteria for Skilled Therapeutic Intervention Yes, treatment indicated PT Diagnosis (PT) impaired gait Influenced by the following impairments pain, deficits with ROM, strength, balance Functional limitations due to impairments decreased ind with functional mobility Clinical Presentation (PT Evaluation Complexity) stable Clinical Presentation Rationale PMH and clinical judgement Clinical Decision Making (Complexity) low complexity Planned Therapy Interventions (PT) balance training;bed mobility training;cryotherapy;gait training;home exercise program;patient/family education;ROM (range of motion);strengthening;stair training;stretching;transfer training;progressive activity/exercise Risk & Benefits of therapy have been explained evaluation/treatment results reviewed;care plan/treatment goals reviewed;risks/benefits reviewed;participants voiced agreement with care plan;current/potential barriers reviewed;participants included;patient;daughter PT Total Evaluation Time PT Eval, Low Complexity Minutes (86271) 8 Therapy Certification Start of care date 03/20/24 Certification date from 03/20/24 Certification date to 04/03/24 Medical Diagnosis L ARVIND Physical Therapy Goals PT Frequency 2x/day PT Predicted Duration/Target Date for Goal Attainment 03/21/24 PT Goals Bed Mobility;Transfers;Gait;Stairs PT: Bed Mobility Supervision/stand-by assist;Supine to/from sit PT: Transfers Supervision/stand-by assist;Sit to/from stand;Assistive device PT: Gait Supervision/stand-by assist;Rolling walker;150 feet PT: Stairs Minimal assist;2 stairs Interventions Interventions Quick Adds Gait Training;Therapeutic Activity;Therapeutic Procedure Therapeutic Procedure/Exercise Ther. Procedure: strength, endurance, ROM, flexibillity Minutes (71093) 1 Symptoms Noted During/After Treatment none Treatment Detail/Skilled Intervention Educated on circulatory benefits of AP's after surgery and toperform throughout the day whenever resting. With pt in supine cued for AP's x 30. Therapeutic Activity Therapeutic Activities: dynamic activities to improve functional performance Minutes (28171) 15 Symptoms Noted During/After Treatment None Treatment Detail/Skilled Intervention Greeted pt supine in bed with daughter present. Eval completed. Educated on orders for WBAT and no hip precautions, pt verbalized understanding. Also educated onwalking program once home and how to balance rest with activity. Pt SBA with all bed mobility needing minimal cueing. Performed Sit<>stand x 2 with FWW CGA-SBA, cues for safe walker and hand srinivasan cement. Pt amb to BR and performed Stand<>sit from RTS with FWW and SBAm, cues for set up andsequencing, performed with good stability. Increased time for line management and room set up Gait Training Gait Training Minutes (19633) 8 Symptoms Noted During/After Treatment (Gait Training) none Treatment Detail/Skilled Intervention Pt amb ~300' with FWW and CGA progressing to SBA. Pt initially using step-to pattern while picking up walker to advance. Therapist demonstrated sequencing with walker placement and using step-through pattern and pt able to demo back well. Vcs to pick feet up when turning and to avoid large twisting movements. Pt moved well overall and appeared steady throughout PT Discharge Planning PT Plan progress gait with FWW, trial steps, safe transfers PT Discharge Recommendation (DC Rec) (defer to ortho) PT Rationale for DC Rec Pt below baseline but moving well and using safe technique, able to amb with FWW and SBA. Anticipate pt will progress and by discharge be at/near SBA bed mobility, SBA transfers with FWW, SBA amb with FWW, Tara for steps. Pt will have good 24/ support at home from sister and family PT Brief overview of current status SBA with FWW Total Session Time Timed Code Treatment Minutes 24 Total Session Time (sum of timed and untimed services) 32 M [facility] OUTPATIENT PHYSICAL THERAPY EVALUATION PLAN OF TREATMENT FOR OUTPATIENT REHABILITATION (COMPLETE FOR INITIAL CLAIMS ONLY) Patient's Last Name, First Name, M.I. Date of : 1960 Kriss Song Provider's Name [facility] Onset Date: 03/20/24 Start of Care Date: 03/20/24 Type: _X_PT ___OT ___SLP Medical Diagnosis: L ARVIND PT Diagnosis: impaired gait Visits from SOC: 1 See note for plan of treatment, functional goals and certification details I CERTIFY THE NEED FOR THESE SERVICES FURNISHED UNDER THIS PLAN OF TREATMENT AND WHILE UNDER MY CARE (Physician co-signature of this document indicates review and certification of the therapy plan). Associated attestation - Kai Diop MD - 04/06/2024 11:02 AM CDT Physician Attestation I agree with the information in this note. Kai Diop MD * Mayar Butts RN - 03/21/2024 1:02 PM CDT Patient vital signs are at baseline: Yes Patient able to ambulate as they were prior to admission or with assist devices provided by therapies during their stay: Yes Patient MUST void prior to discharge: Yes Patient able to tolerate oral intake: Yes Pain has adequate pain control using Oral analgesics: Yes Does patient have an identified speech coach: Yes Has goal D/C date and [...] Discharge to home today. Mariana Gamez PA-C [phone] * Qi Lewis, ANUM - 03/20/2024 10:33 PM CDT MD Notification Notified Person: MD Notified Person Name: [facility] loki CAT ( DR. Bazzi). Notification Date/Time: 10:34 pm 03/20 Notification Interaction: phone call Purpose of Notification: lactic acid 2.9 Orders Received: DR BAZZI [facility] call at this time 11:07 pm continue with iv fluidsand monitor for tonight. Also will reorder discontinue orders in the morning and will order for hospitalist. 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 medications updated by Medication Scribe prior to surgery via phone call with patient (last doses completed by Nurse) Medication history sources: Patient, Surescripts, and (Cardiology Progress Note) In the past week, patient estimated taking medication this percent of the time: Greater than 90% Significant changes made to the medication list: Patient reports no longer taking the following meds (med scribe removed from RETAIL SERVICE TECHNICIAN med list): azathioprine, Spironolactone Additional medication history information: None Medication reconciliation completed by provider prior to medication history? No Time spent in this activity: 40 minutes The information provided in this note is only as accurate as the sources available at the time of update(s) Prior to Admission medications Medication Sig Last Dose Taking? Auth Provider Cyber Threat Analyst End Date acetaminophen (TYLENOL) 500 MG [...] Yes Reported, Patient Medication history completed by: Cornia Ceja LPN documented in this encounter Consult Notes * Morgan Garcia MD - 03/21/2024 11:08 AM CDTAssociated Order(s): HOSPITALIST IP CONSULT Formatting of this note is different from the [facility] Consult Note - Hospitalist Service Date of Admission: 03/20/2024 Consult Requested by: Kai Diop MD Reason for Consult: HTN Assessment & Plan Kriss Song is a 63 year old female admitted on 03/20/2024 for Lt ARVIND. 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 See goals on Care Plan in [facility] electronic health record for goal details. Goals met Therapy recommendation(s): Continue home exercise program. * Plan of Care - Qi Lewis RN - 03/21/2024 6:23 AM CDT Goal Outcome Evaluation: Summary: 03-21-24 [id number] Diagnosis: left total hip arthroplasty POD#1 Orientation: [...] PRN Oxycodone. Does patient have an identified speech coach: Yes Has goal D/C date and [...] PRN Oxycodone. Does patient have an identified speech coach: Yes Has goal D/C date and time been discussed with patient: Yes * Op Note - Kai Diop MD - 03/20/2024 8:23 AM CDT DATE OF SERVICE: 03/20/2024 SURGEON KAI CARRILLO M.D. IMMUNOLOGY SPECIALIST Mariana Gamez, GRISELC - Assisting MARISSA Casanova, OPA-C - Assisting PREOPERATIVE DIAGNOSIS Left hip osteoarthritis, failed to respond to conservative management. POSTOPERATIVE DIAGNOSIS Left hip osteoarthritis, failed to respond to conservative management. TITLE OF PROCEDURE Left total hip arthroplasty, Depuy uncemented components, direct anterior approach. OrthoGrid Fluroscopic hip navigation. PROCEDURE The patient was brought to the operating room and after satisfactory anesthesia was placed on the Rush table. The left lower extremity was then [...] aid of image intensification. A 52 mm Rolfe cup was impacted into place in approximately [...] gm of tranexamic acid pre-op. A skilled first coat operator was necessary for this procedure for assistance with patient positioning,prepping, draping, surgical visualization, performance of the repair, wound closure, and application of the dressing. * Brief Op Note - Kai Diop MD - 03/20/2024 5:29 AM CDT [facility] Brief Operative Note Pre-operative diagnosis: [...] Implant Name Type Inv. Item Serial No. Academic Interventionist Lot No. LRB No. Used Action IMP CUP LAURA PINNACLE 52MM 1217-22-052 - [id number] Total Joint Component/Insert IMP CUP LAURA PINNACLE 52MM 1217-22-052 [employer]- [id number] Left 1 Implanted IMP APEX HOLE ELIMINATOR HIP DEPUY DURALOC 1246-03-000 - [id number] Metallic Hardware/[place] IMP APEX HOLE ELIMINATOR HIP DEPUY DURALOC 1246-03-000 [employer]- [id number] Left 1 Implanted IMP SCR BONE CAN LAURA 6.5X35MM 1217-35-500 - [id number] Metallic Hardware/[place] IMP SCR BONE CAN LAURA 6.5X35MM 1217-35-500 [employer]- [id number] Left 1 Implanted IMP SCR BONE CAN LAURA 6.5X20MM 1217-20-500 - [id number] Metallic Hardware/[place] IMP SCR BONE CAN LAURA 6.5X20MM 1217-20-500 [employer]- [id number] Left 1 Implanted IMP INSERT HIP DEPUY PINNACLE ALTRX [id number] 1221-36-052 - [id number] Total Joint Component/Insert IMP INSERT HIP DEPUY PINNACLE ALTRX [id number] 1221-36-052 [employer]- [id number] Left 1 Implanted IMP STEM FEM DEPUY ACTIS COLLAR HI-OFFSET SZ 2MM - [id number] Total Joint Component/Insert IMP STEM FEM DEPUY ACTIS COLLAR HI-OFFSET SZ 2MM 0-020 Product Hunt [facility]- Left 1 Implanted IMP HEAD FEMORAL DEPUY CERAMIC 36MM +1.5MM 1365-36-310 - [id number] Total Joint Component/Insert IMP HEAD FEMORAL DEPUY CERAMIC 36MM +1.5MM 1365-36-310 Product Hunt [facility]- [id number] Left 1 Implanted documented in this encounter Plan of Treatment Upcoming Encounters Date Type Department Care Team (Latest Contact Info) Description 06/12/2024 9:15 AM CDT Hospital Encounter [facility] [address] [place] [address] Kai Diop MD [facility] [address] [address] 06/12/2024 9:15 AM CDT - 06/12/2024 12:[address] [facility] [address] [place] [address] Kai Diop MD [facility] [address] [address] RIGHT TOTAL HIP ARTHROPLASTY DIRECT ANTERIOR APPROACH [...] MD LAB - BLOOD ORDERAB LES LABORATORY [facility] [address] 1[address] floor, [address] [place] [address], [facility] [phone] * (ABNORMAL) Lactic Acid Whole Blood w/ 1x repeat in 2 hrs when >2 (03/20/2024 10:40 PM CDT) Lactic Acid, Initial 2.5(H) 0.7 - 2.0 mmol/L 03/20/2024 11:05 PM CDT LABORATORY Blood STRUCTURE OF RIGHT HAND / Unknown Venipuncture / Unknown 03/20/2024 10:40 PM CDT 03/20/2024 10:49 PM CDT Jose Angel Villagomez MD LAB - BLOOD ORDERAB LES LABORATORY [facility] [address] 1[address] floor, [address] [place] [address], [facility] [phone] * (ABNORMAL) Lactic acid whole blood (03/20/2024 10:40 PM CDT) Lactic Acid 2.5(H) 0.7 - 2.0 mmol/L 03/20/2024 10:58 PM CDT LABORATORY Blood STRUCTURE OF RIGHT HAND / Unknown Venipuncture / Unknown 03/20/2024 10:40 PM CDT 03/20/2024 10:49 PM CDT Kai Diop MD LAB - BLOOD ORDERABL ES LABORATORY [facility] [address] 1[address] floor, [address] [place] [address], [facility] [phone] * (ABNORMAL) Lactic Acid Whole Blood w/ 1x repeat in 2 hrs when >2 (03/20/2024 9:34 PM CDT) Lactic Acid, Initial 2.9(H) 0.7 - 2.0 mmol/L 03/20/2024 10:06 PM CDT LABORATORY Blood STRUCTURE OF RIGHT UPPER LIMB / Unknown Venipuncture / Unknown 03/20/2024 9:34 PM CDT 03/20/2024 9:52 PM CDT Kai Diop MD LAB - BLOOD ORDERABL ES LABORATORY [facility] [address] 1[address] floor, [address] [place] [address], [facility] [phone] * XR Pelvis w Hip Port Left 1 View (03/20/2024 11:20 AM CDT) Anatomical Region Laterality Modality Abdomen/Pelvis Left Digital Radiogra phy Impressions 03/20/2024 11:25 AM CDT IMPRESSION: Status post recent left total hip arthroplasty. No immediate hardware complication. Expected postsurgical soft tissue edema and subcutaneous emphysema. No acute fracture or malalignment. LB TINEO MD SYSTEM ID: [id number] Narrative 03/20/2024 11:25 AM CDT XR PELVIS [...] or malalignment. LB TINEO MD SYSTEM ID: [id number] Kai Diop MD IMG DIAGNOSTIC IMAGI NG ORDERABLES * XR Surgery DULCE L/T 5 Min Fluoro w Stills (03/20/2024 9:31 AM CDT) Anatomical Region Laterality Modality Abdomen/Pelvis Radio Fluoroscop y Impressions 03/20/2024 9:33 AM CDT IMPRESSION: Intraprocedural spot films demonstrate placement of a left total hip arthroplasty. Please reference the surgical report for further details. LB TINEO MD SYSTEM ID: [id number] Narrative 03/20/2024 9:33 AM CDT XR SURGERY [...] further details. LB TINEO MD SYSTEM ID: [id number] Kai Diop MD IMG DIAGNOSTIC IMAGI NG [...] MD LAB - BLOOD ORDERABL ES LABORATORY [facility] [address] 1[address] floor, [address] [place] [address], [place] [phone] * Glucose (03/20/2024 7:11 AM CDT) Glucose 98 70 - 99 mg/dL 03/20/2024 7:52 AM CDT LABORATORY Patient Fasting > 8hrs? Yes 03/20/2024 7:52 AM CDT LABORATORY Blood STRUCTURE OF RIGHT UPPER LIMB / Unknown Venipuncture / Unknown 03/20/2024 7:11 AM CDT 03/20/2024 7:31 AM CDT Brayan Goodwin MD LAB - BLOOD ORDERA BLES LABORATORY [facility] [address] floor, [address] [place] [address], [place] [phone] * Potassium (03/20/2024 7:11 AM CDT) [facility] Potassium 4.1 3.4 - 5.3 mmol/L 03/20/2024 7:52 AM CDT LABORATORY Blood STRUCTURE OF RIGHT UPPER LIMB / Unknown Venipuncture / Unknown 03/20/2024 7:11 AM CDT 03/20/2024 7:31 AM CDT Brayan Goodwin MD LAB - BLOOD ORDERA BLES LABORATORY [facility] [address], [address] [place] [address], [place] [phone] * EKG Cardiac - HIM Scan (02/28/2024 [...] management to improve pain control., Starting on Narvon 03/23/24 at 0000, May give first dose [...] used when administering multiple Central Nervous System (TELEPHONE ORDER CLERK) depressing meds within a short time frame. [...] pain, Starting on Nathaly 03/20/24 at 2037, IF patient unable to take oral pain medication or pain not controlled with oral analgesics. Hold IV PRN opioid dose for analgesic side effects. Notify provider to assess for uncontrolled pain or analgesic side effects. HYDROmorphone (DILAUDID) injection 0.4 mg 0.4 mg, Intravenous, EVERY 2 HOURS PRN, severe pain, Starting on Nathaly 24 at 2036, IF patient unable to take [...] 10 mL/hr, Intravenous, CONTINUOUS, Pre-procedure, Starting on Sun03/20/24 at 0730, Until Sun03/20/24 at 0952 $New Bag 03/20/2024 7:01 AM CDT 10 mL/hr lactated ringers infusion at 100 mL/hr, Intravenous, CONTINUOUS, IF overnight stay, continue IV fluids until 0400 POD #1, then may saline lock if tolerating oral fluids. IF Day of Surgery Discharge, continue IV Fluids until one hour before discharge., Starting on Sun03/20/24 at 1200, Until Sun03/20/24 at 1944 $New Bag 03/20/2024 2:39 PM CDT 100 mL/hr Rate/Dose Verify 03/20/2024 11:45 AM CDT 100 mL /hr lactated ringers infusion at 100 mL/hr, Intravenous, CONTINUOUS, IF overnight stay, continue IV fluids until 0400 POD #1, then may saline lock if tolerating oral fluids. IF Day of Surgery Discharge, continue IV Fluids until one hour before discharge., Starting on Sun03/20/24 at 2100, Until Sun03/21/24 at 1614 $New [...] analgesic side effects. Hold while on IV MOTOR POLARIZER or with regular IV opioid dosing. $Given 03/20/2024 4:39 PM CDT 10 mg oxyCODONE (ROXICODONE) tablet 10 mg 10 mg, Oral, EVERY 4 HOURS PRN, severe pain, Starting on Nathaly 03/20/24 at 2036, Hold oral PRN dose for analgesic side effects. Notify provider to assess for uncontrolled pain or analgesic side effects. Hold while on IV MOTOR POLARIZER or with regular IV opioid dosing. $Given 03/21/2024 8:47 AM CDT 10 mg oxyCODONE (ROXICODONE) tablet 5 mg 5 mg, Oral, EVERY 4 HOURS PRN, moderate pain, Starting on Nathaly 03/20/24 at 1154, Hold oral PRN dose for analgesic side effects. Notify provider to assess for uncontrolled pain or analgesic side effects. Hold while on IV MOTOR POLARIZER or with regular IV opioid dosing. $Given 03/20/2024 12:42 PM CDT 5 mg oxyCODONE (ROXICODONE) tablet 5 mg 5 mg, Oral, EVERY 4 HOURS PRN, moderate pain, Starting on Nathaly 03/20/24 at 2037, Hold oral PRN dose for analgesic side effects. Notify provider to assess for uncontrolled pain or analgesic side effects. Hold while on IV MOTOR POLARIZER or with regular IV opioid dosing. $Given [...] 1-2 Minutes, Starting on Nathaly 03/20/24 at 2037, This is Step 2 of nausea and [...] 100 mL (ORTHO MIRIAM STANDARD DOSE) INTRA-ARTICULAR, INSPECTOR RUBBER STAMP DIE TO O.R., Starting on Nathaly 03/20/24 at [...] at 2036 sodium chloride 0.9% (bottle) irrigation PRN, Starting on Nathaly 03/20/24 at 0822, Intra-procedure $Given 03/20/2024 8:22 AM CDT 1,000 mLs sodium chloride 0.9% irrigation (bag) PRN, Starting on Nathaly 03/20/24 at 0822, Intra-procedure $Given 03/20/2024 8:22 AM [...] vancomycin (VANCOCIN) topical powder PRN, Starting on Nathaly 03/20/24 at 0925, Intra-procedure $Given 03/20/2024 9:25 AM [...] grams/day., Pre-procedure 0624 ($Given - Provider: Lucille Davis RN) acetaminophen (TYLENOL) tablet 975 mg (CANCELED) 975 mg, Oral, EVERY 8 HOURS, First dose on Nathaly 03/20/24 at 1430, For 3 days, Administer for multimodal surgical pain management. Maximum acetaminophen dose from all sources = 75 mg/kg/day not to exceed 4 grams/day. 1338 ($Given - Provider: Carmella Vargas, ANUM) acetaminophen (TYLENOL) tablet 975 mg 975 mg, [...] NOT CRUSH. 0847 ($Given - Provider: Mayra Treadwell, RN) ceFAZolin (ANCEF) 2 g in 100 mL D5W intermittent infusion (CANCELED) Routine, 2 g, Intravenous, EVERY 8 HOURS, First dose on Nathaly 03/20/24 at 1530, For 2 doses, First post-op dose due 8 hours after intra-op dose, see eMAR. , Indications: Perioperative Pharmacoprophylaxis 1639 ($New Bag - Provider: Carmella Vargas, RN) ceFAZolin (ANCEF) 2 g in 100 mL D5W intermittent infusion (COMPLETED) Routine, 2 g, Intravenous, EVERY 8 HOURS, First dose (after last reorder) on Sun03/21/24 at 0100, For 1 dose, First post-op dose due 8 hours after intra-op dose, see eMAR. , Indications: Perioperative Pharmacoprophylaxis 0004 ($New Bag - Provider: Qi Lewis, ANUM) ceFAZolin Sodium (ANCEF) injection 2 g (COMPLETED) Routine, 2 g, Intravenous, PRE-OP/PRE-PROCEDURE, Starting on Nathaly 03/20/24 at 0602, For 1 dose, Give first dose within 1 hour PRIOR to incision. If patient weight is greater than or equal to 120 kg increase dose to 3 g., Indications: Perioperative Pharmacoprophylaxis, Pre-procedure 0738 ($Given - Provider: Diana Hogan APRN RECONCILIATION MACHINE OPERATOR) ketorolac (TORADOL) injection 15 mg (CANCELED) 15 [...] and push over 1 to 2 minutes. 2057 ($Given - Provider: Qi Lewis, ANUM) 0307 ($Given - Provider: Qi Lewis, ANUM)0847 ($Given - Provider: Mayra Treadwell, RN) meloxicam [...] 60 1126 ($Given - Provider: Mayra Treadwell, ANUM) polyethylene glycol (MIRALAX) Packet 17 g 17 [...] mL (ORTHO MIRIAM STANDARD DOSE) (COMPLETED) INTRA-ARTICULAR, INSPECTOR RUBBER STAMP DIE TO O.R., Starting on Nathaly 03/20/24 at [...] loose stools. 133 ($Given - Provider: Carmella Vargas RN) senna-docusate (SENOKOT-S/PERICOLACE) 8.6-50 MG per tablet 1 tablet 1 tablet, Oral, 2 TIMES DAILY, First dose (after last reorder) on Nathaly 03/20/24 at 2100, To prevent constipation. Hold for loose stools Hold for loose stools. 2056 ($Given - Provider: Qi Lewis RN) 0847 ($Given - Provider: Mayra Treadwell, RN) sodium chloride (PF) 0.9% PF flush [...] 0952 0701 ($New Bag - Provider: Gerald Davis, ANUM) lactated ringers infusion (CANCELED) at 100 mL/hr, Intravenous, CONTINUOUS, IF overnight stay, continue IV fluids until 0400 POD #1, then may saline lock if tolerating oral fluids. IF Day of Surgery Discharge, continue IV Fluids until one hour before discharge., Starting on Nathaly 03/20/24 at 1200, Until Nathaly 03/20/24 at 1944 1145 (Rate/Dose Verify - Provider: Carmella Vargas, ANUM)1439 ($New Bag - Provider: Carmella Vargas, ANUM) lactated ringers infusion at 100 mL/hr, Intravenous, CONTINUOUS, IF overnight stay, continue IV fluids until 0400 POD #1, then may saline lock if tolerating oral fluids. IF Day of Surgery Discharge, continue IV Fluids until one hour before discharge., Starting on Sun03/20/24 at 2100, Until Sun03/21/24 at 1614 2057 ($New Bag - Provider: Qi Lewis, ANUM) PRN Medication Order 03/19/2024 03/20/2024 03/21/2024 acetaminophen [...] without fever, Starting on Sun03/20/24 at 1154 1703 ($Given - Provider: Carmella Vargas, ANUM) benzocaine-menthol (CHLORASEPTIC) 6-10 MG lozenge 1 lozenge 1 lozenge, Buccal, EVERY 1 HOUR PRN, sore throat, sore throat without fever, Starting on Sun03/20/24 at 2036 2056 ($Given - Provider: Qi [...] PRN, heartburn, Starting on Sun03/20/24 at 1154 1703 ($Given - Provider: Carmella Vargas RN) calcium carbonate (TUMS) chewable tablet 500 mg 500 mg, Oral, 4 TIMES DAILY PRN, heartburn, Starting on Sun03/20/24 at 2036 diphenhydrAMINE (BENADRYL) capsule 25 mg 25 mg, Oral, EVERY 6 HOURS PRN, itching, anxiety, Starting on Sun03/20/24 at 2036, Caution to be used when administering multiple Central Nervous System (TELEPHONE ORDER CLERK) depressing meds within a short time frame. [...] analgesic side effects. Hold while on IV MOTOR POLARIZER or with regular IV opioid dosing. 1242 (See Alternative - Provider: Carmella Vargas RN)1639 ($Given - Provider: Carmella Vargas, RN) oxyCODONE (ROXICODONE) tablet 10 mg(Linked Group 5) 10 mg, Oral, EVERY 4 HOURS PRN, severe pain, Starting on Nathaly 03/20/24 at 2036, Hold oral PRN dose for analgesic side effects. Notify provider to assess for uncontrolled pain or analgesic side effects. Hold while on IV MOTOR POLARIZER or with regular IV opioid dosing. 2138 [...] analgesic side effects. Hold while on IV MOTOR POLARIZER or with regular IV opioid dosing. 1242 [...] analgesic side effects. Hold while on IV MOTOR POLARIZER or with regular IV opioid dosing. 213 ($Given - Provider: Qi Lewis RN) 0847 [...] 2 MIN PRN, opioid reversal, Starting on [facility] 03/20/24 at 2037, Administer intramuscular if [...] analgesic side effects. Hold while on IV MOTOR POLARIZER or with regular IV opioid dosing. Or oxyCODONE (ROXICODONE) tablet 10 mg (CANCELED)Jump to med 10 mg, Oral, EVERY 4 HOURS PRN, severe pain, Starting on Nathaly 03/20/24 at 1154, Hold oral PRN dose for analgesic side effects. Notify provider to assess for uncontrolled pain or analgesic side effects. Hold while on IV MOTOR POLARIZER or with regular IV opioid dosing. Group 5: oxyCODONE (ROXICODONE) tablet 5 mgJump to med 5 mg, Oral, EVERY 4 HOURS PRN, moderate pain, Starting on Nathaly 03/20/24 at 2036, Hold oral PRN dose for analgesic side effects. Notify provider to assess for uncontrolled pain or analgesic side effects. Hold while on IV MOTOR POLARIZER or with regular IV opioid dosing. Or oxyCODONE (ROXICODONE) tablet 10 mgJump to med 10 mg, Oral, EVERY 4 HOURS PRN, severe pain, Starting on Nathaly 03/20/24 at 2036, Hold oral PRN dose for analgesic side effects. Notify provider to assess for uncontrolled pain or analgesic side effects. Hold while on IV MOTOR POLARIZER or with regular IV opioid dosing. Group [...] nausea, vomiting, Starting on Nathaly 03/20/24 at 2037, This is Step 2 of nausea and vomiting management. If nausea not resolved in 15- 30 minutes, Notify provider. documented in this encounter Care Teams Real Estate Administrator Relationship Specialty Start Date End Date Yamila Dave PA-C [facility] [address] [place] [address] PCP - General Physician Vice President Of Nursing 04/14/20 Chadwick Jensen NP [address] [place] [address] Nurse Practitioner Cardiovascular Disease 11/15/22 Rahul Ford MD Cardiovascular Disease 01/24/24 Rahul Ford MD Assigned Heart and Vascular Provider 02/24/24 documented as of this encounter
--- OUTSIDE RECORDS SUMMARY | 2024-05-19 10:17 | XMS_ITS | Encounter Summary ---
Author Organization [place] Address [facility] [place] [address] Care Team Providers Care Binding Stitcher Name Role Phone Yamila Dave PA-C Primary Care Provider Alo Steel PA-C Unavailable [phone] Rahul Ford MD Unavailable Un available Chadwick Jensen NP Unavailable [phone] Chadwick Jensen NP Unavailable [phone] Chadwick Jensen NP Unavailable [phone] Rahul Ford MD Unavailable Un available Rahul [...] Description 06/12/2024 9:15 AM CDT Hospital Encounter [facility] [address] [place] [phone] Kong Diop MD [facility] [address] [facility] [address] [place] [address] 06/12/2024 9:15 AM CDT - 06/12/2024 12:45 PM CDT Surgery [facility] [address] [place] [phone] Kong Diop MD [facility] [address] [facility] [address] [place] [address] RIGHT TOTAL HIP ARTHROPLASTY DIRECT ANTERIOR APPROACH WITH ORTHO GRID Scheduled Procedures Name Priority Associated Diagnoses Date/Ti me ARTHROPLASTY, HIP, TOTAL, DIRECT ANTERIOR APPROACH, USING ORTHOGRID Degenerative joint disease (DJD) of hip 06/12/2024 9:15 AM CDT documented as of this encounter Visit Diagnoses Not on filedocumented in this encounter Care Teams Binding Stitcher Relationship Specialty Start Date End Date Yamila Dave PA-C [facility] [address] [place] [address] PCP - General Physician Data Warehouse Specialist 04/14/20 Alo Steel PA-C [address] [address] Assigned Heart and Vascular Provider 11/17/20 01/22/21 Rahul Ford MD [address] [address] Assigned Heart and Vascular Provider 01/23/21 03/02/23 Chadwick Jensen NP [address] [address] Nurse Practitioner Cardiovascular Disease 11/15/22 Chadwick Jensen NP [address] [address] Assigned Heart and Vascular Provider 03/03/23 08/17/23 Chadwick Jensen NP [address] [address] Assigned Heart and Vascular Provider 08/25/23 02/23/24 Rahul Ford MD Assigned Heart and Vascular Provider 08/18/23 08/24/23 Rahul Ford MD MD Cardiovascular Disease 01/24/24 Rahul Ford MD Assigned Heart and Vascular Provider 02/24/24 documented as of this encounter
--- OUTSIDE RECORDS SUMMARY | 2024-05-19 10:17 | XMS_ITS | Encounter Summary ---
Author Organization [place] Address [address] [facility] [place] [address] Care Team Providers Care Manager Utility Name Role Phone Yamila Dave PA-C Primary Care Provider Chadwick Jensen NP Unavailable [phone] Rahul Ford MD Unavailable Un available Rahul [...] Description 06/12/2024 9:15 AM CDT Hospital Encounter [facility] [address] [place] [phone] Kong Diop MD [facility] [address] [place] [address] 06/12/2024 9:15 AM CDT - 06/12/2024 12:45 PM CDT [facility] [address] [place] [phone] Kong Diop MD [facility] [address] [place] [address] RIGHT TOTAL HIP ARTHROPLASTY DIRECT ANTERIOR APPROACH WITH ORTHO GRID Scheduled Procedures Name Priority Associated Diagnoses Date/Ti me ARTHROPLASTY, HIP, TOTAL, DIRECT ANTERIOR APPROACH, USING ORTHOGRID Degenerative joint disease (DJD) of hip 06/12/2024 9:15 AM CDT documented as of this encounter Visit Diagnoses Not on filedocumented in this encounter Care Teams Manager Utility Relationship Specialty Start Date End Date Yamila Dave PA-C [facility] [address] [place] [address] PCP - General Physician Spraying Machine Operator 04/14/20 Chadwick Jensen NP [address] [place] [address] Nurse Practitioner Cardiovascular Disease 11/15/22 Rahul Ford MD MD Cardiovascular Disease 01/24/24 Rahul Ford MD Assigned Heart and Vascular Provider 02/24/24 documented as of this encounter
--- OUTSIDE RECORDS SUMMARY | 2024-05-19 10:17 | XMS_ITS | Encounter Summary ---
Author Organization [place] Address [address] [facility] [place] [address] Care Team Providers Care Railroad Emergency Services Manager Name Role Phone Yamila Dave PA-C Primary Care Provider Chadwick Jensen APRICOT PACKER Unavailable [phone] Chadwick Jensen NP Unavailable [phone] Rahul Ford MD Unavailable Un available Rahul Ford MD Unavailable Un available Encounter Details Date Type Department Care Team (Late st Contact Info) Description 01/07/2024 External Order Results [facility] [address] [place] [address] Outside, Provider Social History Tobacco Use Types [...] Description 06/12/2024 9:15 AM CDT Hospital Encounter [facility] [address] [place] [phone] Kong Diop MD [facility] [address] [place] [address] 06/12/2024 9:15 AM CDT - 06/12/2024 12:45 PM CDT Surgery [facility] [address] [place] [phone] Kong Diop MD [facility] [address] [place] [address] RIGHT TOTAL HIP ARTHROPLASTY DIRECT ANTERIOR APPROACH [...] PM CDT Narrative ABELARDO PFT - 01/25/2024 2:29 PM CDT Verified by Carmella Munroe on 01/25/2024. Provider Outside LAB - BLOOD ORDERABL ES Performing Organization Address [facility]/ZIP Co de Phone Number BREEZE PFT NON-INTERFACED (ONBASE SCANS) * (ABNORMAL) CRP inflammation (01/07/2024 2:50 PM CDT) CRP Inflammation (External) <0.5(L) 0.5 - 1.0 mg/dL NON-INTERFACE D (ONBASE SCANS) Blood BLOOD SPECIMEN / Unknown 01/07/2024 2:50 PM CDT Narrative BREEZE PFT - 01/07/2024 2:50 PM CDT Verified by Carmella Munroe on 01/25/2024. Provider Outside LAB - BLOOD ORDERABL ES Performing Organization Address [facility] Co de Phone Number BREEZE PFT NON-INTERFACED (ONBASE SCANS) * TSH (01/07/2024 2:50 PM CDT) Pathologist [facility] TSH (External) 2.290 0.270 - 4.200 uIU/mL NON-INTERFACED (ONBASE SCANS) Blood BLOOD SPECIMEN / Unknown 01/07/2024 2:50 PM CDT Narrative BREEZE PFT - 01/25/2024 2:26 PM CDT Verified by Carmella Munroe on 01/25/2024. Provider Outside LAB - BLOOD ORDERABL ES Performing Organization Address City/[facility]/ZIP Co de Phone Number BREEZE PFT NON-INTERFACED (ONBASE SCANS) documented in this encounter Visit Diagnoses Not on filedocumented in this encounter Care Teams Railroad Emergency Services Manager Relationship Specialty Start Date End Date Yamila Dave PA-C [facility] [address] [place] [address] PCP - General Physician Ice Skating Teacher 04/14/20 Chadwick Jensen NP [address] [place] [address] Nurse Practitioner Cardiovascular Disease 11/15/22 Chadwick Jensen NP [address] [place] [address] [address] Assigned Heart and Vascular Provider 08/25/23 02/23/24 Rahul Ford MD MD Cardiovascular Disease 01/24/24 Rahul Ford MD Assigned Heart and Vascular Provider 02/24/24 documented as of this encounter
--- OUTSIDE RECORDS SUMMARY | 2024-05-19 10:17 | XMS_ITS | Encounter Summary ---
Author Organization [place] Address [address] [place] [address] Care Team Providers Care Web Systems Developer Name Role Phone Yamlia Dave PA-C Primary Care Provider Chadwick Jensen NP Unavailable [phone] Rahul Ford MD Unavailable Un available Rahul Ford MD Unavailable Un available Reason for Visit * Auth/Cert (Routine) Specialty Diagnoses / Procedures Referred By Vickie zuniga Referred To Contact Surgery Diagnoses Degenerative joint disease of left hip Degenerative joint disease of left hip [M16.12] Procedures CO TOTAL HIP ARTHROPLASTY LEFT TOTAL HIP ARTHROPLASTY DIRECT ANTERIOR APPROACH WITH ORTHOGRID Sh Periop Services [address] [place] [address] Referral ID Status Reason Start Date Expiration Date Visits Re quested Visits Authorized [id number] 1 1 Encounter Details Date Type Department Care Team (Latest Contact Info) Description 03/20/2024 5:29 AM CDT - 03/21/2024 1:10 PM CDT Hospital Encounter [facility] [address] [facility] [place] [address] Kai Diop MD [facility] [address] [place] [address] Status post total hip replacement, left (Primary [...] 40 MG tabletIndications: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,Palpitations Take 1 tablet [...] 25 MG tabletIndications: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 Procedure: strength, endurance, ROM, flexibillity Minutes (68695) 1 Symptoms Noted During/After Treatment none Treatment Detail/Skilled Intervention Educated on circulatory benefits of AP's after surgery and toperform throughout the day whenever resting. With pt in supine cued for AP's x 30. Therapeutic Activity Therapeutic Activities: dynamic activities to improve functional performance Minutes (27488) 15 Symptoms Noted During/After Treatment None Treatment [...] set up Gait Training Gait Training Minutes (56330) 8 Symptoms Noted During/After Treatment (Gait Training) [...] Tara for steps. Pt will have good / support at home from sister and family PT Brief overview of current status SBA with FWW Total Session Time Timed Code Treatment Minutes 24 Total Session Time (sum of timed and untimed services) 32 [facility] OUTPATIENT PHYSICAL THERAPY EVALUATION PLAN OF TREATMENT FOR OUTPATIENT REHABILITATION (COMPLETE FOR INITIAL CLAIMS ONLY) Patient's Last Name, First Name, M.I. Date of : 1960 Kriss Song Provider's Name [facility] Onset Date: 03/20/24 Start of Care [...] in this note. Kai Diop MD * Mayra Butts RN - 03/21/2024 1:02 [...] analgesics: Yes Does patient have an identified hitting coach: Yes Has goal D/C date and [...] Discharge to home today. Mariana Gamez PA-C [phone] * Qi Lewsi RN - 03/20/2024 10:33 PM CDT MD Notification Notified Person: MD Notified Person Name: apparel fashion designer loki CAT ( DR. Bazzi). Notification Date/Time: 10:34 pm 03/20 Notification Interaction: phone call Purpose of Notification: lactic acid 2.9 Orders Received: DR BAZZI apparel fashion designer orthropedics call at this time 11:07 pm continue with iv fluidsand monitor for tonight. Also will reorder discontinue orders in the morning and will order for hospitalist. [place] hospitalist order Comments: * Corina Ceja LPN - 03/17/2024 12:37 PM CDT TESTING ENGINEER medications updated by Medication Scribe prior to surgery via phone call with patient (last doses completed by Nurse) Medication history sources: Patient, Surescripts, and (Cardiology Progress Note) In the past week, patient estimated taking medication this percent of the time: Greater than 90% Significant changes made to the medication list: Patient reports no longer taking the following meds (med scribe removed from TESTING ENGINEER med list): azathioprine, Spironolactone Additional medication history information: None Medication reconciliation completed by provider prior to medication history? No Time spent in this activity: 40 minutes The information provided in this note is only as accurate as the sources available at the time of update(s) Prior to Admission medications Medication Sig Last Dose Taking? Auth Provider Mcfp End Date acetaminophen (TYLENOL) 500 MG tablet [...] 11:08 AM CDTAssociated Order(s): HOSPITALIST IP CONSULT [facility] Consult Note - Hospitalist Service Date of Admission: 03/20/2024 Consult Requested by: Kai Diop MD Reason for Consult: HTN Assessment & Plan Kriss Song is a 63 year old female admitted on 03/20/2024 for Lt ARVIND. Medicine service consulted for post operative hemodynamics, medications review # HTN: TESTING ENGINEER on Metoprolol (resumed with hold parameters) HOLD [...] Garcia MD Hospitalist Service Securely message with Blackwave (St[employer]iative info) Text page via [facility] Paging/Directory Chief Complaint S/p Lt ARVIND History [...] goal(s). See goals on Care Plan in Epic electronic health record for goal details. Goals met Therapy recommendation(s): Continue home exercise program. * Plan of Care - Qi Lewis RN - 03/21/2024 6:23 AM CDT Goal Outcome Evaluation: Summary: 03-21-24 [id number] Diagnosis: left total hip arthroplasty POD#1 Orientation: [...] PRN Oxycodone. Does patient have an identified hitting coach: Yes Has goal D/C date and [...] PRN Oxycodone. Does patient have an identified hitting coach: Yes Has goal D/C date and time been discussed with patient: Yes * Op Note - Kai Diop MD - 03/20/2024 8:23 AM CDT DATE OF SERVICE: 03/20/2024 SURGEON KAI CARRILLO M.D. RIG HAND Mariana Gamez, PA-C - Assisting MARISSA Casanova, OPA-C - [...] after satisfactory anesthesia was placed on the [place] table. The left lower extremity was [...] aid of image intensification. A 52 mm [place] cup was impacted into place in approximately [...] gm of tranexamic acid pre-op. A skilled bricklayer's assistant was necessary for this procedure for assistance with patient positioning,prepping, draping, surgical visualization, performance of the repair, wound closure, and application of the dressing. * Brief Op Note - Kai Diop MD - 03/20/2024 5:29 AM CDT [facility] Brief Operative Note Pre-operative diagnosis: [...] Implant Name Type Inv. Item Serial No. Solar Installation Technician Lot No. LRB No. Used Action IMP CUP LAURA PINNACLE 52MM 1217-22-052 - [id number] Total Joint Component/Insert IMP CUP LAURA PINNACLE 52MM 1217-22-052 J& [employer] CARE [facility]- [id number] Left 1 Implanted IMP APEX HOLE ELIMINATOR HIP DEPUY DURALOC 1246-000 - [id number] Metallic Hardware/[place] IMP APEX HOLE ELIMINATOR HIP DEPUY DURALOC 1246-03000 &J [facility]- [id number] Left 1 Implanted IMP SCR BONE CAN LAURA 6.5X35MM 1217-35-500 - [id number] Metallic Hardware/[place] IMP SCR BONE CAN LAURA 6.5X35MM 1217-35-500 &J [employer] CARE [facility]- [id number] Left 1 Implanted IMP SCR BONE CAN LAURA 6.5X20MM 1217-20-500 - [id number] Metallic Hardware/[place] IMP SCR BONE CAN LAURA 6.5X20MM 1217-20-500 J[employer]J [employer]- [id number] Left 1 Implanted IMP INSERT HIP DEPUY PINNACLE ALTRX [id number] 1221-36-052 - [id number] Total Joint Component/Insert IMP INSERT HIP DEPUY PINNACLE ALTRX [id number] 1221-36-052 J[employer]J [employer]- [id number] Left 1 Implanted IMP STEM FEM DEPUY ACTIS COLLAR HI-OFFSET SZ 2MM 1010-12-020 - [id number] Total Joint Component/Insert IMP STEM FEM DEPUY ACTIS COLLAR HI-OFFSET SZ 2MM 1010-12-020 J[employer]J [employer]- Left 1 Implanted IMP HEAD FEMORAL DEPUY CERAMIC 36MM +1.5MM 1365-36-310 - [id number] Total Joint Component/Insert IMP HEAD FEMORAL DEPUY CERAMIC 36MM +1.5MM 1365-36-310 J[employer]J [employer]- [id number] Left 1 Implanted documented in this encounter Plan of Treatment Upcoming Encounters Date Type Department Care Team (Latest Contact Info) Description 06/12/2024 9:15 AM CDT Hospital Encounter [facility] Services [address] [place] [phone] Kai Diop MD [facility] [address] [place] [address] 06/12/2024 9:15 AM CDT - 06/12/2024 12:45 PM CDT Surgery [facility] [address] [place] [phone] Kai Diop MD [facility] [address] [place] [address] RIGHT TOTAL HIP ARTHROPLASTY DIRECT ANTERIOR APPROACH [...] MD LAB - BLOOD ORDERAB LES LABORATORY [facility] Lab [address] 1[address] floor, [address] [place] [address], [facility] [phone] * (ABNORMAL) Lactic Acid Whole Blood w/ 1x repeat in 2 hrs when >2 (03/20/2024 10:40 PM CDT) Lactic Acid, Initial 2.5(H) 0.7 - 2.0 mmol/L 03/20/2024 11:05 PM CDT LABORATORY Blood STRUCTURE OF RIGHT HAND / Unknown Venipuncture / Unknown 03/20/2024 10:40 PM CDT 03/20/2024 10:49 PM CDT Jose Angel Villagomez MD LAB - BLOOD ORDERAB LES LABORATORY [facility] [address], [address] [place] [address], [facility] [phone] * (ABNORMAL) Lactic acid whole blood (03/20/2024 10:40 PM CDT) Lactic Acid 2.5(H) 0.7 - 2.0 mmol/L 03/20/2024 10:58 PM CDT LABORATORY Blood STRUCTURE OF RIGHT HAND / Unknown Venipuncture / Unknown 03/20/2024 10:40 PM CDT 03/20/2024 10:49 PM CDT Kai Diop MD LAB - BLOOD ORDERABL ES Performing Organization Address City/[facility]/ZIP Co de Phone Number LABORATORY [facility] Lab [address], [address] [place] [address], [facility] [phone] * (ABNORMAL) Lactic Acid Whole Blood w/ 1x repeat in 2 hrs when >2 (03/20/2024 9:34 PM CDT) Lactic Acid, Initial 2.9(H) 0.7 - 2.0 mmol/L 03/20/2024 10:06 PM CDT LABORATORY Blood STRUCTURE OF RIGHT UPPER LIMB / Unknown Venipuncture / Unknown 03/20/2024 9:34 PM CDT 03/20/2024 9:52 PM CDT Kai Diop MD LAB - BLOOD ORDERABL ES LABORATORY [facility] [address], [address] [place] [address] [phone] * XR Pelvis w Hip Port Left 1 View (03/20/2024 11:20 AM CDT) Anatomical Region Laterality Modality Abdomen/Pelvis Left Digital Radiogra phy Impressions 03/20/2024 11:25 AM CDT IMPRESSION: Status post recent left total hip arthroplasty. No immediate hardware complication. Expected postsurgical soft tissue edema and subcutaneous emphysema. No acute fracture or malalignment. LB TINEO MD SYSTEM ID: [id number] Narrative 03/20/2024 11:25 AM CDT XR PELVIS [...] or malalignment. LB TINEO MD SYSTEM ID: [id number] Kai Diop MD IMG DIAGNOSTIC IMAGI NG ORDERABLES * XR Surgery DULCE L/T 5 Min Fluoro w Stills (03/20/2024 9:31 AM CDT) Anatomical Region Laterality Modality Abdomen/Pelvis Radio Fluoroscop y Impressions 03/20/2024 9:33 AM CDT IMPRESSION: Intraprocedural spot films demonstrate placement of a left total hip arthroplasty. Please reference the surgical report for further details. LB TINEO MD SYSTEM ID: ??[id number] Narrative 03/20/2024 9:33 AM CDT XR SURGERY [...] further details. LB TINEO MD SYSTEM ID: [id number] Kai Diop MD IMG DIAGNOSTIC IMAGI NG [...] MD LAB - BLOOD ORDERABL ES LABORATORY [facility] [address] 1[address], [address] [place] [address], [facility] [phone] * Glucose (03/20/2024 7:11 AM CDT) Glucose 98 70 - 99 mg/dL 03/20/2024 7:52 AM CDT LABORATORY Patient Fasting > 8hrs? Yes 03/20/2024 7:52 AM CDT LABORATORY Blood STRUCTURE OF RIGHT UPPER LIMB / Unknown Venipuncture / Unknown 03/20/2024 7:11 AM CDT 03/20/2024 7:31 AM CDT Brayan Goodwin MD LAB - BLOOD ORDERA BLES LABORATORY [facility] Lab [address], [address] [place] [address], [facility] [phone] * Potassium (03/20/2024 7:11 AM CDT) Potassium 4.1 3.4 - 5.3 mmol/L 03/20/2024 7:52 AM CDT LABORATORY Blood STRUCTURE OF RIGHT UPPER LIMB / Unknown Venipuncture / Unknown 03/20/2024 7:11 AM CDT 03/20/2024 7:31 AM CDT Brayan Goodwin MD LAB - BLOOD ORDERA BLES LABORATORY [facility] Lab [address], [address] [place] [address], [facility] [phone] * EKG Cardiac - HIM Scan (02/28/2024 [...] used when administering multiple Central Nervous System (PRODUCT SAFETY TEST ENGINEER) depressing meds within a short time [...] on Nathaly 03/20/24 at 1200, Until Nathaly 7/18/24 at 1944 $New Bag 03/20/2024 2:39 PM [...] 15 mg 15 mg, Oral, ONCE, On Sun03/20/24 at 0630, [...] analgesic side effects. Hold while on IV SPRING SALVAGE WORKER or with regular IV opioid dosing. $Given 03/20/2024 4:39 PM CDT 10 mg oxyCODONE (ROXICODONE) tablet 10 mg 10 mg, Oral, EVERY 4 HOURS PRN, severe pain, Starting on Nathaly 03/20/24 at 2036, Hold oral PRN dose for analgesic side effects. Notify provider to assess for uncontrolled pain or analgesic side effects. Hold while on IV SPRING SALVAGE WORKER or with regular IV opioid dosing. $Given 03/21/2024 8:47 AM CDT 10 mg oxyCODONE (ROXICODONE) tablet 5 mg 5 mg, Oral, EVERY 4 HOURS PRN, moderate pain, Starting on Nathaly 03/20/24 at 1154, Hold oral PRN dose for analgesic side effects. Notify provider to assess for uncontrolled pain or analgesic side effects. Hold while on IV SPRING SALVAGE WORKER or with regular IV opioid dosing. $Given 03/20/2024 12:42 PM CDT 5 mg oxyCODONE (ROXICODONE) tablet 5 mg 5 mg, Oral, EVERY 4 HOURS PRN, moderate pain, Starting on Nathaly 03/20/24 at 2036, Hold oral PRN dose for analgesic side effects. Notify provider to assess for uncontrolled pain or analgesic side effects. Hold while on IV SPRING SALVAGE WORKER or with regular IV opioid dosing. $Given [...] Oral, 2 TIMES DAILY, First dose on Sun03/20/24 at 1330, To prevent constipation. Hold for [...] line, Starting on Nathaly 03/20/24 at 2036 tranexamic acid (LYSTEDA) tablet 1,950 mg 1,950 [...] 4 grams/day. 2138 ($Given - Provider: Qi Lewis RN) 0536 ($Given - Provider: Qi Lewis RN)1400 [...] Intravenous, EVERY 6 HOURS, First dose on Sun03/20/24 at 1530, For 4 doses, May continue [...] and push over 1 to 2 minutes. 7 ($Given - Provider: Qi Lewis RN) 0307 ($Given - Provider: Qi Lewis RN)0847 ($Given - Provider: Mayra Treadwell, RN) [...] pre-op., Pre-procedure 0624 ($Given - Provider: Lucille Davis RN) ROPivacaine (NAROPIN) 5 MG/ML 300 mg, ketorolac (TORADOL) 30 mg, EPINEPHrine (ADRENALIN) 0.6 mg in sodium chloride 0.9 % 100 mL (ORTHO MIRIAM STANDARD DOSE) (COMPLETED) INTRA-ARTICULAR, BOX OFFICE CLERK TO O.R., Starting on Nathaly 03/20/24 at [...] Lewis, ANUM) 0847 ($Given - Provider: Mayra Treadwell, ANUM) sodium chloride (PF) 0.9% PF flush 3 mL 3 mL, Intracatheter, EVERY 8 HOURS, First dose (after last reorder) on Nathaly 03/20/24 at 2200, to lock peripheral IV dormant line 2139 (Not Given - Provider: iQ Lewis RN - Reason: IV Infusing) 0536 [...] 0624 ($Given - Provider: Lucille Davis, ANUM) Continuous Medication Order 03/19/2024 03/20/2024 03/21/2024 lactated ringers infusion (CANCELED) at 10 mL/hr, Intravenous, CONTINUOUS, Pre-procedure, Starting on Nathaly 03/20/24 at 0730, Until Sun03/20/24 at 0952 0701 ($New Bag - Provider: [...] at 2036 2056 ($Given - Provider: Qi Lewis RN) bisacodyl [...] used when administering multiple Central Nervous System (PRODUCT SAFETY TEST ENGINEER) depressing meds within a short time frame. fentaNYL (PF) (SUBLIMAZE) injection 25 mcg (CANCELED) 25 mcg, Intravenous, EVERY 5 MIN PRN, moderate pain, Give fentaNYL (SUBLIMAZE) first if HYDROmorphone (DILAUDID) also ordered., Starting on Nathaly 24 at 1008, Administer fentaNYL (SUBLIMAZE) for acute [...] MIN PRN, moderate pain, Starting on Nathaly 24 at 1008, Use FentaNYL (SUBLIMAZE) first if [...] moderate pain, Starting on Nathaly 24 at 2037, IF patient unable to take oral pain medication or pain not controlled with oral analgesics. Hold IV PRN opioid dose for analgesic side effects. Notify provider to assess for uncontrolled pain or analgesic side effects. HYDROmorphone (DILAUDID) injection 0.4 mg(Linked Group 1) 0.4 mg, Intravenous, EVERY 2 HOURS PRN, severe pain, Starting on Nathaly 24 at 2037, IF patient unable to take [...] severe pain, Starting on Nathaly 24 at 1154, Hold oral PRN dose for analgesic side effects. Notify provider to assess for uncontrolled pain or analgesic side effects. Hold while on IV SPRING SALVAGE WORKER or with regular IV opioid dosing. 1242 [...] analgesic side effects. Hold while on IV SPRING SALVAGE WORKER or with regular IV opioid dosing. 2137 (See Alternative - Provider: Qi Lewis RN) 0847 ($Given - Provider: Mayra Treadwell RN) oxyCODONE (ROXICODONE) tablet 5 mg (CANCELED)(Linked Group 4) 5 mg, Oral, EVERY 4 HOURS PRN, moderate pain, Starting on Nathaly 24 at 1154, Hold oral PRN dose for analgesic side effects. Notify provider to assess for uncontrolled pain or analgesic side effects. Hold while on IV SPRING SALVAGE WORKER or with regular IV opioid dosing. 1242 ($Given - Provider: Carmella Vargas RN)1639 (See Alternative - Provider: Carmella Vargas RN) oxyCODONE (ROXICODONE) tablet 5 mg(Linked Group 5) 5 mg, Oral, EVERY 4 HOURS PRN, moderate pain, Starting on Nathaly 1824 at 2037, Hold oral PRN dose for analgesic side effects. Notify provider to assess for uncontrolled pain or analgesic side effects. Hold while on IV SPRING SALVAGE WORKER or with regular IV opioid dosing. 213 ($Given - Provider: Qi Lewis RN) 0847 (See Alternative - Provider: Mayra Treadwell RN) prochlorperazine (COMPAZINE) injection 10 mg(Linked Group 6) 10 mg, Intravenous, EVERY 6 HOURS PRN, nausea, vomiting, Administer over 1-2 Minutes, Starting on Nathaly 7/18/24 at 2036, This is Step 2 of [...] 2-5 Minutes, Starting on Nathaly 03/20/24 at 2037, This is Step 1 of nausea and [...] analgesic side effects. Hold while on IV SPRING SALVAGE WORKER or with regular IV opioid dosing. Or oxyCODONE (ROXICODONE) tablet 10 mg (CANCELED)Jump to med 10 mg, Oral, EVERY 4 HOURS PRN, severe pain, Starting on Nathaly 03/20/24 at 1154, Hold oral PRN dose for analgesic side effects. Notify provider to assess for uncontrolled pain or analgesic side effects. Hold while on IV SPRING SALVAGE WORKER or with regular IV opioid dosing. Group 5: oxyCODONE (ROXICODONE) tablet 5 mgJump to med 5 mg, Oral, EVERY 4 HOURS PRN, moderate pain, Starting on Nathaly 03/20/24 at 7, Hold oral PRN dose for analgesic side effects. Notify provider to assess for uncontrolled pain or analgesic side effects. Hold while on IV SPRING SALVAGE WORKER or with regular IV opioid dosing. Or oxyCODONE (ROXICODONE) tablet 10 mgJump to med 10 mg, Oral, EVERY 4 HOURS PRN, severe pain, Starting on Nathaly 24 at 2037, Hold oral PRN dose for analgesic side effects. Notify provider to assess for uncontrolled pain or analgesic side effects. Hold while on IV SPRING SALVAGE WORKER or with regular IV opioid dosing. Group [...] provider. documented in this encounter Care Teams Web Systems Developer Relationship Specialty Start Date End Date Yamila Dave PA-C [facility] [address] [place] [address] PCP - General Physician It Infrastructure Manager 04/14/20 Chadwick Jensen NP [address] [place] [address] Nurse Practitioner Cardiovascular Disease 11/15/22 Rahul Ford MD MD Cardiovascular Disease 01/24/24 Rahul Ford MD Assigned Heart and Vascular Provider 02/24/24 documented as of this encounter
--- OUTSIDE RECORDS SUMMARY | 2024-05-19 10:17 | XMS_ITS | Encounter Summary ---
Author Organization [place] Address [facility] [place] [address] Care Team Providers Care Nurseryperson Name Role Phone Yamila Dave PA-C Primary Care Provider Alo Steel PA-C Unavailable [phone] Rahul Ford MD Unavailable Un available Chadwick Jensen NP Unavailable [phone] Chadwick Jensen NP Unavailable [phone] Chadwick Jensen NP Unavailable [phone] Rahul Ford MD Unavailable Un available Rahul [...] Description 06/12/2024 9:15 AM CDT Hospital Encounter [facility] [address] [place] [phone] Kong Diop MD [facility] [address] [facility] [address] [place] [address] 06/12/2024 9:15 AM CDT - 06/12/2024 12:45 PM CDT Surgery [facility] [address] [place] [phone] Kong Diop MD [facility] [address] [facility] [address] [place] [address] RIGHT TOTAL HIP ARTHROPLASTY DIRECT ANTERIOR APPROACH WITH ORTHO GRID Scheduled Procedures Name Priority Associated Diagnoses Date/Ti me ARTHROPLASTY, HIP, TOTAL, DIRECT ANTERIOR APPROACH, USING ORTHOGRID Degenerative joint disease (DJD) of hip 06/12/2024 9:15 AM CDT documented as of this encounter Visit Diagnoses Not on filedocumented in this encounter Care Teams Nurseryperson Relationship Specialty Start Date End Date Yamila Dave PA-C [facility] [address] [place] [address] PCP - General Physician Test Borer Helper 04/14/20 Alo Steel PA-C [address] [place] [address] Assigned Heart and Vascular Provider 11/17/20 01/22/21 Rahul Ford MD [address] [place] [address] Assigned Heart and Vascular Provider 01/23/21 03/02/23 Chadwick Jensen, LATOSHA [address] [place] [address] Nurse Practitioner Cardiovascular Disease 11/15/22 Chadwick Jensen NP [address] [place] [address] Assigned Heart and Vascular Provider 03/03/23 08/17/23 Chadwick Jensen NP [address] [place] [address] Assigned Heart and Vascular Provider 08/25/23 02/23/24 Rahul Ford MD Assigned Heart and Vascular Provider 08/18/23 08/24/23 Rahul Ford MD MD Cardiovascular Disease 01/24/24 Rahul Ford MD Assigned Heart and Vascular Provider 02/24/24 documented as of this encounter
--- OUTSIDE RECORDS SUMMARY | 2024-05-19 10:17 | XMS_ITS | Encounter Summary ---
Author Organization [facility] Address [address] [facility] [place] [address] Care Team Providers Care Router Tender Name Role Phone Yamila Dave PA-C Primary Care Provider Chadwick Jensen LEAF FAT SCRAPER Unavailable [phone] Chadwick Jensen NP Unavailable [phone] Rahul Ford MD Unavailable Un available Rahul Ford MD Unavailable Un available Encounter Details Date Type Department Care Team (Late st Contact Info) Description 11/16/2023 Medical Correspondence [facility] [address] [place] [address] Scan, Non-Provider Social History Tobacco Use [...] Description 06/12/2024 9:15 AM CDT Hospital Encounter [facility] [address] [place] [phone] Kong Diop MD [facility] [address] [facility] [address] [place] [address] 06/12/2024 9:15 AM CDT - 06/12/2024 12:45 PM CDT Surgery [facility] [address] [place] [phone] Kong Diop MD [facility] [address] [facility] [address] [place] [address] RIGHT TOTAL HIP ARTHROPLASTY DIRECT ANTERIOR APPROACH WITH ORTHO GRID Scheduled Procedures Name Priority Associated Diagnoses Date/Ti me ARTHROPLASTY, HIP, TOTAL, DIRECT ANTERIOR APPROACH, USING ORTHOGRID Degenerative joint disease (DJD) of hip 06/12/2024 9:15 AM CDT documented as of this encounter Visit Diagnoses Not on filedocumented in this encounter Care Teams Router Tender Relationship Specialty Start Date End Date Yamila Dave PA-C [facility] [address] [place] [address] PCP - General Physician Analyst Food And Beverage 04/14/20 Chadwick Jensen NP [address] [address] Nurse Practitioner Cardiovascular Disease 11/15/22 Chadwick Jensen NP [address] [address] Assigned Heart and Vascular Provider 08/25/23 02/23/24 Rahul Ford MD Cardiovascular Disease 01/24/24 Rahul Ford MD Assigned Heart and Vascular Provider 02/24/24 documented as of this encounter
--- OUTSIDE RECORDS SUMMARY | 2024-05-19 10:17 | XMS_ITS | Clinical Summary ---
Author Organization [facility] Address [place], [place] [address] Care Team Providers Care Food Management Aide Name Role Phone Yamila Dave PA-C Primary Care Provider [phone] Allergies Active Allergy Reactions Criticality Noted Date [...] (1 of 2) 2011 COVID-19 vaccine series ( season) 2024 12/30/2020, 12/09/2020 Influenza for age 50-64 05/04/2024 Pap test for age 21-65 06/15/2025 , 06/15/2022, 04/23/2019 Pneumococcal series for age 6-64 Aged Out No longer eligible b ased on patient's age to complete this topic Procedures Procedure Name Priority Date/Time Associated Diagnosis Comments HPV HIGH RISK Routine 06/15/2022 9:45 AM CDT Encounter for screening for malignant neoplasm of cervix from Last 3 Months or Most Recently Relevant to Health Maintenance Results * HPV HIGH RISK (06/15/2022 9:45 AM CDT) TYPE 16 Negative Negative 06/21/2022 9:30 AM CDT [facility] TYPE 18 Negative Negative 06/21/2022 9:30 AM CDT [facility] OTHER HIGH RISK TYPES Negative Negative 06/21/2022 9:30 AM CDT [facility] Other (Cervical/Vagina l) 06/15/2022 9:45 AM CDT 06/16/2022 8:28 AM CDT Narrative [facility] - 06/21/2022 9:30 AM CDT HPV types 16, 18, 31, 33, 35, 39, 45, 51, 52, 56, 58, 59, 66 and 68 DNA were undetectable or below the pre-set threshold. Methodology: Jamie Cristina 4800 HPV Test Yamila Dave PA-C [facility] [address] [place] [address], from Last 3 Months or Most Recently Relevant to Health Maintenance Advance Directives * Full Code (Latest Code Status on File) Date Activated Date Inactivated Comments 11/19/2020 5:56 AM 11/19/2020 1:25 PM Question Answer Comments Code Status Discussion: Not Discussed Care Teams Food Management Aide Relationship Specialty Start Date End Date Yamila Dave PA-C [address] [place] [address] PCP - General Emergency Medicine 11/05/20
== END 2024-05-19 10:14 | disposition home or self-care (01) ==
LOC: LKVREF 10:14
PROVIDERS: PCP Physician Assistant Medical; Visit Provider Physician Assistant Medical
DX: Z01.818 Encounter for other preprocedural examination (principal); I10 Essential (primary) hypertension; E66.9 Obesity, unspecified; E78.00 Pure hypercholesterolemia, unspecified; L40.50 Arthropathic psoriasis, unspecified
CPT/HCPCS: 80053

== ENCOUNTER 2024-06-30 13:01 | Outpatient (CLI) | payer BC, SELFPAY ==
--- OUTSIDE RECORDS SUMMARY | 2024-07-02 08:51 | XMS_ITS | Clinical Summary ---
Author Organization [facility] Address [address] [place] [address] Care Team Providers Care Farm Mortgage Agent Name Role Phone Mildred Drake MD Primary Care Provider [phone] Allergies Active Allergy Reactions Criticality Noted Date Comments Alc-Sertraline 09/26/2006 Bupropion RASH Low 01/23/2017 Paroxetine Hcl RASH Low 01/23/2017 Paroxetine Hydrochloride 09/26/2006 Sertraline RASH Low 01/23/2017 Sulfa Antibiotics HIVES,ITCHING,RASH High 04/26/2016 Bupropion Hcl 09/26/2006 Medications MULTIVITAMINS OR TABS 1 TABLET DAILY Active Calcium Carbonate-Vit D-Min (CALCIUM 1200 OR) Take by mouth. Active Linolenic Acid (OMEGA 3 OR) Take by mouth. Active Vitamin D3 1000 UNITS Oral Tab Take 1,000 Units by mouth daily. Active Phentermine HCl 37.5 MG Oral TabIndications:Ri ght hip pain Take 37.5 mg by mouth every morning before breakfast. Taking 0.5 daily Active omeprazole 20 MG Oral Capsule Delayed Release Take 1 capsule (20 mg total) by mouth before breakfast. 90 capsule 3 8 Active Citalopram Hydrobromide 20 MG Oral TabIndications:Ri ght hip pain Take 1 tablet (20 mg total) by mouth daily. 90 tablet 3 8 Active Losartan Potassium-HCTZ 50-12.5 MG Oral Tab Take 1 tablet by mouth daily. 90 tablet 3 8 Active Active Problems Problem Noted Date Diagnosed Date Essential hypertension 05/13/2017 Borderline abnormal TFTs 02/15/2015 Kidney stone 07/21/2013 Anxiety 12/19/2010 Immunizations Name Administration Dates Next Due >=3 YRS QUAD MULTIDOSE VIAL (33465) FLU CLINIC 05/31/2015 Influenza 06/03/2017, 6,06/09/2014, 013,07/04/2012,05/06/2009,07/01/2007 TDAP 05/06/2009 Family History Medical History Relation Comments Cancer Father prostate Heart Disorder Father AAA. 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 Gender Identity Not on file Sexual Orientation [...] Associated Diagnosis Comments RANDA SCREEN MAMMOGRAM, DIGITAL (BFA=[id number]) Routine 01/31/2018 5:10 PM CDT Encounter for screening mammogram for malignant neoplasm of breast from Last 3 Months or Most Recently Relevant to Health Maintenance Results * RANDA SCREEN MAMMOGRAM, DIGITAL (DJA=[id number]) (01/31/2018 5:10 PM CDT) Anatomical Region Laterality Modality Breast Bilateral Mammography 02/01/2018 3:21 PM CDT Narrative 02/01/2018 3:24 PM CDT DATE OF SERVICE: 01.31.2018 BILATERAL SCREENING MAMMOGRAM WITH CAD WITH TOMOSYNTHESIS CLINICAL INDICATION: ??Screening mammogram. AGE: 57 years. COMPARISON: ??2016, 2015, 2014, 2013, 2012 TECHNIQUE: ?? Bilateral screening digital mammographic views with tomosynthesis. Images were checked with the flipClass CAD system. FINDINGS: The breasts are heterogeneously [...] M.D. ?? Mildred Drake MD RIS MAMMO Final Result from Last 3 Months or Most Recently Relevant to Health Maintenance Insurance [employer] (Work) [address] [phone] (Work) [address] [place] [phone] (Work) [address] [place] [phone] Care Teams Farm Mortgage Agent Relationship Specialty Start Date End Date Mildred Drake MD [address] [place] [address] PCP - General Family Practice 10/08/12
--- OUTSIDE RECORDS SUMMARY | 2024-07-02 08:51 | XMS_ITS | Clinical Summary ---
Author Organization [facility] Address [address] [address] Phone Care Team Providers Care Web Feeder Name Role Phone Elsewhere, Pcp Primary Care Provider Unavailabl e Allergies Active Allergy Reactions Criticality Noted Date Comments Bupropion RASH Medium 06/10/2024 Sertraline RASH Medium 06/10/2024 Sulfa Drugs RASH Medium 06/10/2024 Medications atorvaSTATin (Lipitor) 40 MG tablet Take 40 mg by mouth one time a day. 2 Active citalopram (CeleXA) 20 MG tablet Take 20 mg by mouth one time a day. 8 Active losartan (Cozaar) 100 MG tablet Take 100 mg by mouth one time a day. 3 Active metoprolol tartrate (Lopressor) 25 MG tablet Take 25 mg by mouth two times a day. 3 Active Multiple Vitamin (Daily Vites) Tablet tablet Take 1 Tablet by mouth one time a day. Active omeprazole (PriLOSEC) 20 MG delayed-release capsule Take 20 mg by mouth one time a day. 5 Active diphenhydrAMINE -APAP, sleep, (TYLENOL PM EXTRA STRENGTH OR) Take 1 Tablet by mouth at bedtime as needed. Active aspirin EC 325 MG tablet Take 1 Tablet by mouth one time a day for 42 days. For DVT prevention. Do not split or crush. 42 Tablet 4 024 Active meloxicam (Mobic) 15 MG tablet Take 1 Tablet by mouth one time a day for 42 days. Take with food. 42 Tablet 4 024 Active oxyCODONE (Roxicodone) 5 MG immediate release tabletIndicatio ns:Status post total replacement of right hip Take 1-2 Tablets by mouth every six hours as needed for Pain. Take 1 to 2 tablet every 4-6 hours as needed for pain. Take 1 tablet for pain rated 4-6, take 2 tablets for pain rated 7-10) 30 Tablet 4 Active senna-docusate (Senna S) 8.6-50 MG oral tablet Take 1-2 Tablets by mouth two times a day. 30 Tablet 4 Active acetaminophen (TYLENOL) 325 MG tablet Take 3 Tablets by mouth every six hours as needed for Pain. Limit acetaminophen to 4000 mg per day from all sources. 100 Tablet 4 Active iron-vitamin C (Vitron-C) 65-125 MG tablet Take 1 Tablet by mouth one time a day. 90 Tablet 4 Active Active Problems Problem Noted Date Diagnosed Date Status post total replacement of right hip 06/10 Encounters Date Type Department Care Team Description 06/13/2024 11:05 AM CDT Ancillary Procedure [facility] [address] [place] [address] [address] [place] [phone] 06/13/2024 8:15 AM CDT - 06/13/2024 11:45 AM CDT Surgery [facility] [address] [place] [phone] Kong Alvares MD Right total hip arthroplasty direct anterior approach 06/13/2024 8:14 AM CDT Anesthesia Event [facility] [address] [place] [phone] Scotty Bryan MD Beerling, Nathan T, MD 06/13/2024 6:30 AM CDT Ancillary Procedure [facility] [address] [facility] [address] [place] [phone] 06/13/2024 5:52 AM CDT - 06/14/2024 10:45 AM CDT Hospital Encounter [facility] [address] [place] [phone] Kong Alvares MD Status post total replacement of right hip (Primary Dx) Discharge Disposition: Home and/or Self Care 06/13/2024 Travel 06/11/2024 Travel from Last 3 Months Surgical History Surgery Date Site/Laterality Comments BREAST LUMPECTOMY LIGATE FALLOPIAN TUBE ENDOMETRIAL ABLATION EGD BIOPSY SINGLE/MULTIPLE COLPOSCOPY w/ cervical biopsy DELIVERY ONLY CORRECT BUNION,METATARSAL OSTEOTOMY HIP ARTHROPLASTY 06/13/2024 Hip/Right Procedure: Right total hip arthroplasty direct anterior approach; Surgeon: Kong Alvares MD; Location: [facility] OR Medical devices from this surgery are in the Medical Devices section. Medical History Medical History Date Comments Status post total replacement of right hip 06/10 Family History Medical History Relation Comments Congestive Heart Failure Father Stroke Father Pulmonary Disease Mother COPD Relation Status Comments Father Mother Social History Tobacco Use Types Packs/Day Years Used Date Smoking Tobacco: Never Passive Smoke Exposure: Past Smokeless Tobacco: Never Alcohol Use Standard Drinks/Week Comments Yes 0 (1 standard drink = 0.6 oz pur e alcohol) monthly [facility] Utilities Answer Date Recorded In the past 12 months has th e WUT, gas, oil, or water [employer] threatened to shut off services in your home? No 06/13/2024 Hunger Vital Sign Answer Date Recorded Within the past 12 months, y ou worried that your food would run out before you got the money to buy more. Never true 06/13/20 24 Within the past 12 months, t he food you bought just didn't last and you didn't have money to get more. Never true 06/13/2024 PRAPARE - Transportation Answer Date Re corded In the past 12 months, has l ack of transportation kept you from medical appointments or from getting medications? No 06/03 In the past 12 months, has l ack of transportation kept you from meetings, work, or from getting things needed for daily living? No 06/13/2024 Housing Stability Vital Sign Answer Miles e Recorded In the last 12 months, was t here a time when you were not able to pay the mortgage or rent on time? No 06/13/2024 In the past 12 months, how m any times have you moved where you were living? 0 06/13/2024 At any time in the past 12 m [facility], were you homeless or living in a skilled nursing (including now)? No 06/13/2024 IP Custom IPV Answer Date Recorded Do you feel UNSAFE in any of your personal relationships with your family members or any other acquaintances? 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 Gender Identity Female 06/11/2024 11:55 AM CDT Sexual Orientation Straight 06/11/2024 11 :55 AM CDT Obstetrics History Last Filed Vital Signs Vital Sign Reading Time Taken Comments Blood Pressure 109/62 06/14/2024 8:14 AM CDT Pulse 78 06/14/2024 8:14 AM CDT Temperature 37.1 ??C (98.8 ??F) 06/14/2024 8:14 AM CD T Respiratory Rate 16 06/14/2024 8:14 AM CDT Oxygen Saturation 92% 06/14/2024 8:14 AM CDT Inhaled Oxygen Concentration - - Weight 87.7 kg (193 lb 6.4 oz) 06/13/2024 7:05 A M CDT Height 160 cm (5' 3) 06/13/2024 7:05 AM CDT Body Mass Index 34.26 06/13/2024 7:05 AM CDT Plan of Treatment Health Maintenance Due Date Last Done Comments CT Colonography 1961 Cervical Cancer Screening 1961 Cologuard 1961 Colonoscopy 1961 Colorectal Cancer Screening 1961 FIT/FOBT 1961 Last pap w/ HPV Testing 1961 Last pap w/o HPV Testing 1961 MAMMO,SCREEN 1961 Sigmoidoscopy 1961 PERTUSSIS (Standing Order) 1980 TETANUS (Standing Order) 1980 Shingrix (Zoster recombinant ) vaccine (Standing Order) (1 of 2) 2011 RSV Vaccination (60+ yrs) (Abrysvo/Arexvy) (1 - Risk 60-74 years 1-dose series) 2021 COVID-19 Vaccine ( - 2023-2 5 season) 2024 Influenza Vaccine Seasonal (Standing Order) (#1) 2024 HPV Vaccine (Standing Order) Aged Out No longer eligible based on patient's age to complete this topic Hepatitis B Vaccine (Standin g Order) Aged Out No longer eligible b ased on patient's age to complete this topic Pneumococcal/PCV20 Vaccine: Pediatrics (2-5 yrs) and At-Risk Patients (6-64 yrs) (Standing Order) Aged Out No longer eligible b ased on patient's age to complete this topic Medical Devices Implanted Type Area Orthopedic Physician Device Identifier Shelf Expiration Date Model / Serial / Lot [place] Hole Eliminator Ps - [id number] Implanted:Qty: 1 on 06/13/2024 by Kong Alvares MD at [facility] Right: Hip DEPUY [id number] 03/02/2034 0 / NA / [id number] Cup Acet 52mm [place] [employer] Ii - [id number] Implanted:Qty: 1 on 06/13/2024 by Kong Alvares MD at [facility] Right: Hip DEPUY [id number] 04/02/2034 2 / NA / [id number] Screw Bone [place] Cancellous 6.5x25mm - [id number] Implanted:Qty: 1 on 06/13/2024 by Kong Alvares MD at [facility] Right: Hip DEPUY [id number] 01/31/2034 0 / NA / [id number] Liner Acet Altrx 36mm X 52mm Neutral - [id number] Implanted:Qty: 1 on 06/13/2024 by Kong Alvares MD at [facility] Right: Hip DEPUY [id number] 04/02/2029 2 / NA / [id number] Screw Bone Cancellous 6.5mm X 35mm - [id number] Implanted:Qty: 1 on 06/13/2024 by Kong Alvares MD at [facility] Right: Hip DEPUY [id number] 12/01/2033 0 / NA / [id number] Stem Femoral Actis Duofix Sz 3 - [id number] Implanted:Qty: 1 on 06/13/2024 by Kong Alvares MD at [facility] Right: Hip DEPUY [id number] 03/02/2034 1010-07-06 0 / NA / [id number] Head Femoral Biolox Delta Sz 36 +1.5mm - [id number] Implanted:Qty: 1 on 06/13/2024 by Kong Alvares MD at [facility] Right: Hip DEPUY [id number] 04/02/2029 0 / NA / [id number] Procedures Procedure Name Priority Date/Time Associated Diagnosis Comments HEMOGLOBIN Routine 06/14/2024 7:17 AM CDT XR HIP RIGHT 2 OR 3 VIEWS W PELVIS Routine 06/13/2024 11:15 AM CDT Status post total replacement of right hip XR C ARM FLUORO Routine 06/13/2024 10:19 AM CDT ANE INTUBATION 06/13/2024 8:33 AM CDT TOTAL HIP REPLACEMENT 06/13/2024 8:14 AM CDT Degenerative joint disease of right hip M16.11 Case Notes Murtaza aguilar from Last 3 Months Results * (ABNORMAL) HEMOGLOBIN (06/14/2024 7:17 AM CDT) HGB 9.7(L) 12.0 - 16.0 g/dl 06/14/2024 7:31 AM CDT [facility] Blood BLOOD SPECIMEN / Unknown Venipuncture / Unknown 06/14/2024 7:17 AM CDT 06/14/2024 7:27 AM CDT Kong Alvares MD [facility] HEMATOLOGY ORDERABLES Final Result [facility]THUR FAYE [address] [phone] * XR HIP RIGHT 2 OR 3 VIEWS W PELVIS (06/13/2024 11:15 AM CDT) Anatomical Region Laterality Modality Pelvis, Hip Radiographic Amy ging 06/13/2024 11:1 0 AM CDT Narrative 06/13/2024 12:29 PM CDT PROCEDURE: XR HIP RIGHT 2 OR 3 VIEWS W PELVIS HISTORY: Hip replacement surgery. COMPARISON: X-rays earlier the same day. FINDINGS: Interval completion of left total hip arthroplasty. The hardware appears intact and well-positioned. No dislocation or displaced fracture. Postoperative gas about the left hip. Existing left hip arthroplasty appears intact. IMPRESSION: Expected postoperative changes of recent left total hip arthroplasty. Electronically signed by Jeremias Arroyo MD Report Date: 06/13/2024 12:29 PM Procedure Note Jeremias Arroyo MD - 06/13/2024 PROCEDURE: XR HIP RIGHT 2 OR 3 VIEWS W PELVIS HISTORY: Hip replacement surgery. COMPARISON: X-rays earlier the same day. FINDINGS: Interval completion of left total hip arthroplasty. The hardware appearsintact and well-positioned. No dislocation or displaced fracture. Postoperativegas about the left hip. Existing left hip arthroplasty appears intact. IMPRESSION: Expected postoperative changes of recent left total hip arthroplasty. Electronically signed by Jeremias Arroyo MD Report Date: 06/13/2024 12:29 PM Kong Alvares MD [facility] DIAGNOSTIC IMAGING ORDERABL ES Final Result * XR C ARM FLUORO (06/13/2024 10:19 AM CDT) Anatomical Region Laterality Modality Radiographic Amy ging 06/13/2024 8:25 AM CDT Narrative 06/13/2024 10:41 AM CDT PROCEDURE: C-ARM FLUOROSCOPIC SUPPORT HISTORY: s/p ARVIND. TECHNIQUE: C-arm fluoroscopic imaging. Total fluoroscopy time: 33 seconds. Number of saved fluoroscopic images: 10. COMPARISON: None. IMPRESSION: Intraoperative fluoroscopic support provided the orthopedic service for right hip total arthroplasty. Existing left hip arthroplasty noted. Please see the operative note for additional details. Electronically signed by Jeremias Arroyo MD Report Date: 06/13/2024 10:41 AM Procedure Note Jeremias Arroyo MD - 06/13/2024 PROCEDURE: C-ARM FLUOROSCOPIC SUPPORT HISTORY: s/p ARVIND. TECHNIQUE: C-arm fluoroscopic imaging. Total fluoroscopy time: 33 seconds. Number of saved fluoroscopic images: 10. COMPARISON: None. IMPRESSION: Intraoperative fluoroscopic support provided the orthopedic service forright hip total arthroplasty. Existing left hip arthroplasty noted. Please seethe operative note for additional details. Electronically signed by Jeremias Arroyo MD Report Date: 06/13/2024 10:41 AM Adamaris Villa PA-C [facility]AG[facility] ORDER IRWIN Final Result * ANE ETT AIRWAY (06/13/2024 8:33 AM CDT) Narrative Klever Coleman APRN, CRNA - 06/13/2024 8:33 AM CDT Klever Coleman APRN, CRNA ? 06/13/2024 ??8:33 AM Airway Date/Time: 06/13/2024 8:33 AM Urgency: elective Airway not difficult General Information and Staff Patient location during procedure: OR Performed by: Klever Coleman APRN, CRNA Authorized by: Scotty Bryan MD ?? Indications and Patient Condition Indications for airway management: anesthesia Preoxygenated: yes Mask difficulty assessment: 1 - vent by mask Final Airway Details Final airway type: endotracheal airway Successful airway: ETT Successful intubation technique: video laryngoscopy Blade type: simon. Blade size: #3 ETT size (mm): 7.0 Cormack-Lehane Classification: grade IIa - partial view of glottis Placement verified by: chest auscultation and capnometry Measured from: gums ETT to gums (cm): 22 Number of attempts at approach: 1 Number of other approaches attempted: 0 dentition unchanged Scotty Bryan MD PROCEDURE/MINOR HOME ORDERABL ES Final Result from Last 3 Months Insurance [facility] Advance Directives For more information, please contact: [phone] Documents on File Type Date Recorded Patient Gastroenterology Physician Expl anation Advance Directive - RV 06/13/2024 2:56 PM Advance Directive * Full Code (Latest Code Status on File) Date Activated Date Inactivated Comments 06/13/2024 6:10 AM 06/14/2024 3:07 PM Care Teams Web Feeder Relationship Specialty Start Date End Date Elsewhere, Pcp PCP - General 06/10/24
--- OUTSIDE RECORDS SUMMARY | 2024-07-02 08:51 | XMS_ITS | Encounter Summary ---
Author Organization [facility] Address [address] [address] Phone Care Team Providers Care Spa Associate Name Role Phone Elsewhere, Pcp Primary Care Provider Unavailabl e Reason for Visit * Reason Onset Date Comments Pre-Procedure Call 06/10/2024 * Auth/Cert (Routine) Specialty Diagnoses / Procedures Referred By Vickie zuniga Referred To Contact Diagnoses Degenerative joint disease of right hip M16.11 Procedures TOTAL HIP REPLACEMENT Right total hip arthroplasty direct anterior approach Kai Carrillo MD [facility] [address] [address] Phone: tel: fax: Referral ID Status Reason Start Date Expiration Date Visits Re quested Visits Authorized [id number] 1 1 Encounter Details Date Type Department Care Team (Late st Contact Info) Description 06/13/2024 8:15 AM CDT - 06/13/2024 11:45 AM CDT Surgery [facility] OR [address] [place] [phone] Kai Carrillo MD [facility] [address] [address] Right total hip arthroplasty direct anterior approach Surgery Details Date/Time Status Location OR Service Patient Class Case Class Case Type Trauma Case? 06/13/2024 8:15 AM Posted [facility] OR OR 06 Orthopedic AM Admit - Outpatient Panel 1 Procedure LRB Anes Op Region Wound Class Comments Right total hip arthroplasty direct anterior approach Right General Hip Clean Surgeon Surgeon Role Service Panel Kai Carrillo MD Primary Orthopedic 1 Case Notes Depuy actis documented in this encounter Social History Tobacco Use Types Packs/Day Years Used Date Smoking Tobacco: Never Passive Smoke Exposure: Past Smokeless Tobacco: Never Alcohol Use Standard Drinks/Week Comments Yes 0 (1 standard drink = 0.6 oz pur e alcohol) monthly [facility] Utilities Answer Date Recorded In the past 12 months has th e [place], gas, oil, or water [employer] threatened to shut off services in your [...] any time in the past 12 m [facility], were you homeless or living in a long-term (including now)? No 06/13/2024 EH IP Custom IPV Answer Date Recorded Do you feel UNSAFE in any of your personal relationships with your family members or any other acquaintances? No 2023 Comments No Sex and Gender Information Value Date Recorded Sex Assigned at Female 06/11/2024 11:55 AM CDT Legal Sex Female 11:05 PM [employer] Gender Identity Female 06/11/2024 11:55 AM CDT Sexual Orientation Straight 06/11/2024 11 :55 AM CDT documented as of this encounter Last Filed Vital Signs Vital Sign Reading Time Taken Comments Blood Pressure 122/81 06/13/2024 11:45 AM CDT Pulse 89 06/13/2024 11:45 AM CDT Temperature 36.7 ??C (98.1 ??F) 06/13/2024 10:54 AM C DT Respiratory Rate 12 06/13/2024 11:45 AM CDT Oxygen Saturation 98% 06/13/2024 11:45 AM CDT Inhaled Oxygen Concentration - - Weight 87.7 kg (193 lb 6.4 oz) 06/13/2024 7:05 A M CDT Height 160 cm (5' 3) 06/13/2024 7:05 AM CDT Body Mass Index 34.26 06/13/2024 7:05 AM CDT documented in this encounter Functional Status * Patient's Vision Adequate to Safely Complete Daily Activities Answer Date of Assessment Author Yes 06/13/2024 12:07 PM CDT Laura Greer RN * Patient's Memory Adequate to Safely Complete Daily Activities Answer Date of Assessment Author Yes 06/13/2024 12:07 PM CDT Laura Greer RN documented as of this encounter Mental Status * Patient's Judgment Adequate to Safely Complete Daily Activities Answer Entry Date Author Yes 06/13/2024 12:07 PM CDT Laura Greer RN documented in this encounter Discharge Summaries * Mesha Andino PA-C - 06/14/2024 8:35 AM CDT Images from the original note were not included. HOSPITAL DISCHARGE SUMMARY Mesha Andino PA-C 06/14/2024 Patient Name: Kriss Song Date of : 1960 Age: [age] year old Primary Physician: Pcp Elsewhere Phone: None Admitting Physician: Kai Carrillo MD Admission Date: 06/13/2024 Discharging Physician: Mesha Andino PA-C Discharge Date: 06/14/24 Discharge Diagnoses: Principal Problem: Status post total replacement of right hip Resolved Problems: * No resolved hospital problems. * Discharge Disposition: See Orders Hospital Course: Patient presents to the perioperative period after failing to manage their hip osteoarthritis. Risks, benefits, and complications were reviewed with the patient, they elected to proceed with the scheduled surgery. A total hip replacement was completed without complication. she was admitted to orthopedics where physical therapy and education was completed. Subjective: Patient is doing well today, pain is controlled. Asks about an iron supplement on discharge. Their discharge medications were discussed at length. They understand they will be using multiple medications for pain control to be used together. We discussed their tylenol, meloxicam and Oxycodone prescriptions for pain control on discharge. Appropriate anticoagulation therapy was also discussed, aspirin 325mg qd. Their questions were answered, and dressing care instructions were clearly given. VSS. Hgb 9.7 (13.0 pre-op) Objective: prineo dressing is clean, dry, and intact. Minimal erythema of the surrounding skin. Bilateral calves are soft, non-tender. right lower extremity is NVI. Patient Vitals for the past 8 hrs: Temp Temp src Pulse BP Resp SpO2 06/14/24 0814 37.1 ??C (98.8 ??F) Temporal 78 109/62 16 92 % 06/14/24 0500 36.8 ??C (98.2 ??F) Temporal 96 120/80 18 97 % Lab Results Component Value Date HGB 9.7 06/14/2024 No results found for: CREAT, ISCREAT No results found for: GFR Current Discharge Medication List New Prescriptions Details acetaminophen 325 MG tablet Commonly known as: Tylenol Dose: 975 mg 975 mg, Oral, EVERY 6 HOURS NEEDED, Limit acetaminophen to 4000 mg per day from all sources. meloxicam 15 MG tablet Commonly known as: Mobic Dose: 15 mg 15 mg, Oral, ONCE DAILY, Take with food. oxyCODONE 5 MG immediate release tablet Commonly known as: Roxicodone Dose: 5-10 mg 5-10 mg, Oral, EVERY 6 HOURS NEEDED, Take 1 to 2 tablet every 4-6 hours as needed for pain. Take1 tablet for pain rated 4-6, take 2 tablets for pain rated 7-10) senna-docusate 8.6-50 MG oral tablet Commonly known as: Senna S Dose: 1-2 Tablet 1-2 Tablets, Oral, 2 TIMES DAILY Vitron-C 65-125 MG tablet Generic drug: iron-vitamin C Dose: 1 Tablet 1 Tablet, Oral, ONCE DAILY Changed Prescriptions Details aspirin EC 325 MG tablet Dose: 325 mg 325 mg, Oral, ONCE DAILY, For DVT prevention. Do not split or crush. What changed: medication strength how much to take additional instructions Continued Details atorvaSTATin 40 MG tablet Commonly known as: Lipitor Dose: 40 mg 40 mg, Oral, ONCE DAILY citalopram 20 MG tablet Commonly known as: CeleXA Dose: 20 mg 20 mg, Oral, ONCE DAILY Daily Vites Tablet tablet Dose: 1 Tablet 1 Tablet, Oral, ONCE DAILY losartan 100 MG tablet Commonly known as: Cozaar Dose: 100 mg 100 mg, Oral, ONCE DAILY metoprolol tartrate 25 MG tablet Commonly known as: Lopressor Dose: 25 mg 25 mg, Oral, 2 TIMES DAILY omeprazole 20 MG delayed-release capsule Commonly known as: PriLOSEC Dose: 20 mg 20 mg, Oral, ONCE DAILY TYLENOL PM EXTRA STRENGTH OR Dose: 1 Tablet 1 Tablet, Oral, AT BEDTIME NEEDED You might also be taking other medications not listed above. If you have questions about any of your other medications, talk to the person who prescribed them or your Primary Care Provider. Follow Up Instructions: Kai Carrillo MD [facility] [place] [address] [place] [address] Go on 07/02/2024 Post-op appointment scheduled with Dr. Carrillo on 07/02/24 at 2:00 PM at the [place] office Mesha Andino PA-C documented in this encounter Medications at Time of Discharge iron-vitamin C (Vitron-C) 65-125 MG tablet Take 1 Tablet by mouth one time a day. 90 Tablet 06/14/2024 diphenhydrAMINE- APAP, sleep, (TYLENOL PM EXTRA STRENGTH OR) Take 1 Tablet by mouth at bedtime as needed. aspirin EC 325 MG tablet Take 1 Tablet by mouth one time a day for 42 days. For DVT prevention. Do not split or crush. 42 Tablet 06/13/2024 meloxicam (Mobic) 15 MG tablet Take 1 Tablet by mouth one time a day for 42 days. Take with food. 42 Tablet 06/13/2024 oxyCODONE (Roxicodone) 5 MG immediate release tabletIndication s:Status post total replacement of right hip Take 1-2 Tablets by mouth every six hours as needed for Pain. Take 1 to 2 tablet every 4-6 hours as needed for pain. Take 1 tablet for pain rated 4-6, take 2 tablets for pain rated 7-10) 30 Tablet 06/13/2024 senna-docusate (Senna S) 8.6-50 MG oral tablet Take 1-2 Tablets by mouth two times a day. 30 Tablet 06/13/2024 acetaminophen (TYLENOL) 325 MG tablet Take 3 Tablets by mouth every six hours as needed for Pain. Limit acetaminophen to 4000 mg per day from all sources. 100 Tablet 06/13/2024 atorvaSTATin (Lipitor) 40 MG tablet Take 40 mg by mouth one time a day. 04/06/2022 citalopram (CeleXA) 20 MG tablet Take 20 mg by mouth one time a day. 12/25/2017 losartan (Cozaar) 100 MG tablet Take 100 mg by mouth one time a day. 02/23/2023 metoprolol tartrate (Lopressor) 25 MG tablet Take 25 mg by mouth two times a day. 02/23/2023 omeprazole (PriLOSEC) 20 MG delayed-release capsule Take 20 mg by mouth one time a day. 01/19/2015 Multiple Vitamin (Daily Vites) Tablet tablet Take 1 Tablet by mouth one time a day. documented as of this encounter Ordered Prescriptions Prescription Sig Dispense Quantity Refills Last Filled Start Date End Date iron-vitamin C (Vitron-C) 65-125 MG tablet Take 1 Tablet by mouth one time a day. 90 Tablet 06/14/2024 acetaminophen (TYLENOL) 325 MG tablet Take 3 Tablets by mouth every six hours as needed for Pain. Limit acetaminophen to 4000 mg per day from all sources. 100 Tablet 06/13/2024 senna-docusate (Senna S) 8.6-50 MG oral tablet Take 1-2 Tablets by mouth two times a day. 30 Tablet 06/13/2024 oxyCODONE (Roxicodone) 5 MG immediate release tabletIndications :Status post total replacement of right hip Take 1-2 Tablets by mouth every six hours as needed for Pain. Take 1 to 2 tablet every 4-6 hours as needed for pain. Take 1 tablet for pain rated 4-6, take 2 tablets for pain rated 7-10) 30 Tablet 06/13/2024 meloxicam (Mobic) 15 MG tablet Take 1 Tablet by mouth one time a day for 42 days. Take with food. 42 Tablet 06/13/2024 07/25/20 24 aspirin EC 325 MG tablet Take 1 Tablet by mouth one time a day for 42 days. For DVT prevention. Do not split or crush. 42 Tablet 06/13/2024 07/25/20 24 documented in this encounter Discharge Disposition Disposition Code Departure Means Destination Comment s Home and/or Self Skilled Nursing documented in this encounter Progress Notes * Jana Hough, PT - 06/14/2024 10:33 AM CDT PHYSICAL THERAPY ACUTE CARE ARVIND DISCHARGE NOTE SUBJECTIVE Patient is s/p day 1 after a right ARVIND and is doing well. Pt is lying in bed and is agreeable to participate with physical therapy. Pt's sister is in the room. Date of Admission: 06/13/2024 Patient is s/p RIGHT ARVIND by Dr. Kai Diop Pain: 0/10 at rest and 3/10 with ambulation Precautions: none Barriers to Learning: None Cognition: Alert , Oriented, and Cooperative OBJECTIVE Functional Mobility Assessment: Supine to Sit: modified independence, standby assist, and placed 2 pillows between and instructed to move the legs together. Exited the bed on the left side. Sit to Supine: didn't attempt Sit<>Stand: modified independence and standby assist Gait: Patient ambulated 175 ft with 4WW and modified independence and standby assist. Gait pattern: reciprocal, steady, continuous Stairs: up and down 3 steps with 1 rail and SEC. SBA and vc's on proper sequencing. Tests and Measures: 10M WALK TEST: Patient's preferred gait speed is 23 seconds calculated from a distance of 10 meters. Gait speed: 26-50 sec = Household ambulator (gait speed 0.38 m/s-0.2 m/s) 25-12 sec = Limited community ambulators (gait speed of 0.4 to 0.83 m/s) 12.5-8 sec = Community ambulators (gait speed of 0.8-1.25 m/s) 7 sec or less = Able to safely cross the street (gait speed of 1.2 m/sec or greater) MODIFIED ALEXIS INDEX: Self-Care Assessment MBI Score: 87/ 100 Indicating: moderate dependence Score Interpretation 0-20 Total Dependence 21-60 Severe Dependence 61-90 Moderate Dependence 91-99 Slight Dependence 100 [place] Score Prediction Less than 40 Unlikely to go Home Dependent in Mobility Dependent in Self Care 60 Pivotal score where patients move from dependency to assisted independence 60-80 If living alone will probably need a number of community services to cope More than 85 Likely to be discharged to community living Independent in transfers and able to walk or use wheelchair independently Strength/Range of Motion Assessment: Lower Extremity Strength: Right: WFL for ambulation- no LE buckling Left: WFL Gait Training: The patient participated in gait training to improve functional mobility as it relates to ambulation. The patient ambulated 175 feet with ww and stand by assist. The patient participated in stair ambulation with use of one rail(s) and cane with stand by assist after training. Car Transfer Training: Patient assisted to car in transport chair by therapist. Therapist demonstrated car transfer technique followed by assisting patient with verbal cues and stand by assist. Patient and cricket coach were also educated on exit of vehicle technique at home along with hip precautions if applicable. Vitals/Observations/Response to Treatment: Stable throughout session No complaints of dizziness/lightheadedness No complaints or indications of shortness of breath Patient Education Provided: Education provided on hip precautions (per surgeon, if applicable); adaptive medical equipment; fall avoidance: shower transfer, proper footwear and tripping hazards. Recommendations for mobility including: frequency of ambulation every 1-1.5 hours for 5 minutes with walker and icing every hour [id number] minutes during the day; HEP - 2x/day; avoidance of over-doing activity; elevation on multiple pillows to decrease swelling and comfortable coaching handling techniques to avoid discomfort when assisting. Patient verbalized and demonstrated good understanding Family verbalized good understanding. ASSESSMENT The patient demonstrates SBA/modified independence with functional mobility for discharge home, appropriate performance and understanding of HEP, post op recommendations and precautions following ARVIND. The patient and their cricket coach have been instructed on safe patient handling and mobility/DME recommendations for discharge. They have met their goals and will be discharged from PT at this time. Barrier to Discharge Home: No anticipated barriers PLAN OF CARE Recommendations for Discharge: Home with Home Health Care Services Anticipated DME Needs for Discharge: patients has all necessary AD's Progress towards Goals: - BELOW GOALS MET unless otherwise stated: Patient will ambulated 120 + feet with SBA/independent and appropriate assistive device. Patient will demonstrate modified independence with bed, chair and car transfer while maintaining hip precautions as applicable. Patient will demonstrate 3+ stairs with SBA/independent with appropriate assistive device. Patient will demonstrate/verbalize understanding of fall avoidance education and recommendations for home s/p ARVIND. Interdisciplinary Communication: Treatment, goals, and plan of care discussed with nursing. Frequency of Physical Therapy Recommended: Discharge PT Total Treatment Time: 18 minutes Therapeutic Activities (66292) = 10 minutes Gait Training (56819) = 8 minutes * Aracely Gomez PA-C - 06/14/2024 9:12 AM CDT PROGRESS NOTE Date of Service: 06/14/2024 Subjective: POD1 I have reviewed overnight events including nursing documentation, labs, vitals and imaging. Patient denies headache, dizziness, LOC, syncope, presyncope, nausea, vomiting, abdominal pain, diarrhea, constipation, chest pain, shortness of breath, cough, fevers, chills. Hemoglobin dropped. Discussed resumption of each home med. She is feeling tired again today. Had her metoprolol held this morning, we discussed resuming it this evening. Objective: Blood pressure 109/62, pulse 78, temperature 37.1 ??C (98.8 ??F), temperature source Temporal, resp. rate 16, height 1.6 m (5' 3), weight 87.7 kg (193 lb 6.4 oz), SpO2 92%. Const: NAD Eyes: PERRLA, EOMI HEENT: Normocephalic, atraumatic Neck: No cervical lymphadenopathy CV: RRR without murmur, rubs or gallops Lung: CTAB without wheezing, rales or rhonchi Abdomen: Soft, supple, nontender with positive bowel sounds no rebound or guarding Extremity: No lower extremity edema noted, no calf tenderness Neuro: Alert and orientated ??3, moves all 4 extremities Skin: No rashes, sores or abscesses I reviewed and interpreted the new labs. Recent Results (from the past 24 hour(s)) HEMOGLOBIN Result Value Ref Range HGB 9.7 (L) 12.0 - 16.0 g/dl I personally reviewed the new imaging studies. Recent Results (from the past 24 hour(s)) XR C ARM FLUORO Narrative PROCEDURE: C-ARM FLUOROSCOPIC SUPPORT HISTORY: s/p ARVIND. TECHNIQUE: C-arm fluoroscopic imaging. Total fluoroscopy time: 33 seconds. Number of saved fluoroscopic images: 10. COMPARISON: None. IMPRESSION: Intraoperative fluoroscopic support provided the orthopedic service for right hip total arthroplasty. Existing left hip arthroplasty noted. Please see the operative note for additional details. Electronically signed by Jeremias Arroyo MD Report Date: 06/13/2024 10:41 AM XR HIP RIGHT 2 OR 3 VIEWS W PELVIS Narrative PROCEDURE: XR HIP RIGHT 2 OR 3 [...] Arroyo MD Report Date: 06/13/2024 12:29 PM Hospital Summary: Kriss Song is a 63 year old female with significant medical problems including HTN, CAD, CADENCE, GERD, anxiety who underwent RTHA on 06/13/[address] Kai Carrillo. Medicine consult requested for perioperative comanagement of medical comorbidities. Assessment/Plan: Active Hospital Problems 1Status post total replacement of right hip Care per primary service, to include pain management, activity, bowel regimen, anticoagulation and discharge. ABLA Postoperative, expected. Vitally stable, no signs or symptoms of active bleed. Monitor. HTN Ok to continue metoprolol, losartan with hold parameters CAD Continue metoprolol periop with hold parameters Resume aspirin when safe per ortho Mild CADENCE, untreated Anticipate nocturnal hypoxia GERD Continue GI prophylaxis Anxiety Continue Celexa Psoriatic arthritis Resume biologic outpatient Obesity BMI>30 with associated comorbidities. Counseled lifestyle modifications. Aracely Gomez PA-C Hospitalist 30 minutes spent in care of the patient on 06/14/2024 including counseling of pt, coordination of care in chart review, discussion with interdisciplinary care team including nursing, social work and other consultants. * Aracely Gomez PA-C - 06/13/2024 11:13 AM CDT PROGRESS NOTE Date of Service: 06/13/2024 Subjective: POD 0 s/p RTHA Stable post op Patient denies headache, dizziness, LOC, syncope, presyncope, nausea, vomiting, abdominal pain, diarrhea, constipation, chest pain, shortness of breath, cough, fevers, chills. Reviewed Preop H&P. Reviewed Preop labs. She is hoping to rest a bit now. Objective: Blood pressure 113/66, pulse 100, temperature 36.6 ??C (97.8 ??F), temperature source Temporal, resp. rate 14, height 1.6 m (5' 3), weight 87.7 kg (193 lb 6.4 oz), SpO2 96%. Const: NAD Eyes: PERRLA, EOMI HEENT: Normocephalic, atraumatic Neck: No cervical lymphadenopathy CV: RRR without murmur, rubs or gallops Lung: CTAB without wheezing, rales or rhonchi Abdomen: Soft, supple, nontender with positive bowel sounds no rebound or guarding Extremity: No lower extremity edema noted, no calf tenderness Neuro: Alert and orientated ??3, moves all 4 extremities Skin: No rashes, sores or abscesses I reviewed and interpreted the new labs. No results found for this or any previous visit (from the past 24 hour(s)). I personally reviewed the new imaging studies. Recent Results (from the past 24 hour(s)) XR C ARM FLUORO Narrative PROCEDURE: C-ARM FLUOROSCOPIC SUPPORT HISTORY: s/p ARVIND. TECHNIQUE: C-arm fluoroscopic imaging. Total fluoroscopy time: 33 seconds. Number of saved fluoroscopic images: 10. COMPARISON: None. IMPRESSION: Intraoperative fluoroscopic support provided the orthopedic service for right hip total arthroplasty. Existing left hip arthroplasty noted. Please see the operative note for additional details. Electronically signed by Jeremias Arroyo MD Report Date: 06/13/2024 10:41 AM Hospital Summary: Kriss Song is a 63 year old female with significant medical problems including HTN, CAD, CADENCE, GERD, anxiety who underwent RTHA on 06/13/[address] Kai Carrillo. Medicine consult requested for perioperative comanagement of medical comorbidities. Assessment/Plan: Active Hospital Problems 1Status post total replacement of right hip Care per primary service, to include pain management, activity, bowel regimen, anticoagulation and discharge. HTN Ok to continue metoprolol, losartan with hold parameters CAD Continue metoprolol periop with hold parameters Resume aspirin when safe per ortho Mild CADENCE, untreated Anticipate nocturnal hypoxia GERD Continue GI prophylaxis Anxiety Continue Celexa Psoriatic arthritis Resume biologic outpatient Obesity BMI>30 with associated comorbidities. Counseled lifestyle modifications. Aracely Gomez PA-C Hospitalist 50 minutes spent in care of the patient on 06/13/2024 including counseling of pt, coordination of care in chart review, discussion with interdisciplinary care team including nursing, social work and other consultants. * Zoila Her RN - 06/10/2024 12:03 PM CDT 06/10/24 1100 Pre-op Call Department Department [facility] Pre-op Call Schedule Pre-op H&P with PCP Completed Do you take a blood thinner? Yes Pre-op Education Completed Guidebook Not received Pre-op Call Completed Previous Joint Surgery Yes Previous Joint Surgery Comment L ARVIND 03/20/24 Urinary Health Questionaire Complete Female Questionnaire Discharge Plan Home Other Issues no antibodies Will you have help at home? Yes Is your bathroom on the main level? Yes Are you currently using an assistive device? No Length of Stay Plan reviewed;Overnight stay Medical Secretary Receptionist name & phone number Eloise Saleem [phone] Will your cricket coach be the one picking you up from the hospital? Yes Do you have stairs to enter your home? Yes Is your bedroom on the main level? Yes Do you have a tub shower or walk-in shower? Walk-in shower How many blocks can you currently walk? 2+ blocks Do you have any assistive devices at home? Yes Do you have a CPAP? No What pain medications are you currently taking? None Pain Management Preferences Used Oxycodone with no issues after last ARVIND Goal after surgery walking without leg giving out and no more pain Concerns about surgery no Past post-op complications? Not applicable Are you diabetic? No Do you have a metal allergy? No What blood thinner medication do you take? ASA Blood thinner stop date details Reviewed with patient Blood thinner stop date 06/05/24 Pre-op H&P date 05/19/24 Pre-op H&P location [facility] in [place] How many stairs to enter your home? 2 Is there a handrail on the stairs to enter your home? No What device(s) doyou have at home? walker;cane Reminded to bring device to hospital Yes Urinary Health Questionnaire - Female Difficulty urinating after surgery No Have you had surgery on you bladder? No Do you leak urine (even small drops) wet yourself or wet your pads or undergarments? When you cough or sneeze? 2 When you bend down or lift something up? 0 When you walk quickly, jog or exercise 0 While you are undressing in order to use the toilet? 0 When you are at rest? 3 (overnight (slow leak)) Do you get a need to urinate that you leak urine? 0 Do you have to bonilla to the bathroom? 0 Total Urinary Health Score - Female 5 ARVIND/TKA CHRONIC NARCOTIC USE Use of narcotics > 90 days at time of surgery? No documented in this encounter H&P Notes * Kai Carrillo MD - 06/13/2024 6:21 AM CDT The H&P has been reviewed and the patient examined. No change has occurred in the patient's condition since the H&P was completed. Kai Carrillo MD documented in this encounter Miscellaneous Notes * Care Plan - Niesche, Laura A, RN - 06/14/2024 9:55 AM CDT End of Shift Summary and Plan of Care Procedure(s): Right - Right total hip arthroplasty direct anterior approach - Wound Class: Clean Surgeon(s): Kai Carrillo MD 1 Day Post-Op Pain/Comfort: Pt has had mild to moderate pain. Scheduled and PRN pain meds given, which were effective. Ice packs and repositioning utilized as well. Assessment/Interventions: CMS intact. Has Prineo that is CDI. Voiding adequately. Tolerating regular diet. VSS on RA. Activity: Pt ambulating with SBA w/ gait belt and walker. Tolerating well. Worked with PT prior to discharge. Goals/Discharge Plan: AVS given and reviewed, Discharge education reviewed , All questions answered, and Pt discharging home with sister after PT. Lunches and ice packs sent with on discharge. Patient has met discharge criteria and goals adequately for discharge Goals/Plan for Shift Patient/Family stated goal for shift: pain management Nursing goal for shift: pain control, discharge Plan/Interventions to meet goal: Give PRN and scheduled pain meds, work with PT prior to discharge Goals per Patient Condition Fall Prevention Plan - Absence of falls. See Fall Risk flowsheet for intervention documentation. Skin Integrity - Skin intact and absence of new pressure injury. See Vignesh & Skin Assessment flowsheet for intervention documentation. * Care Plan - Rachel Olmos RN - 06/14/2024 6:55 AM CDT End of Shift Summary and Plan of Care Patient had a decent night. Pain controlled with PRN oxycodone and vistaril, as well as scheduled Tylenol and IV Toradol. ABD removed from incision this AM. Prineo intact over right hip. Using ice packs. Voiding well. Ambulating in hallway with nursing staff. Goals/Plan for Shift Patient/Family stated goal for shift: pain management Nursing goal for shift: pain control Plan/Interventions to meet goal: Give pain meds when need, repostion, ice, and ambulate in hallway Goals per Patient Condition Fall Prevention Plan - Absence of falls. See Fall Risk flowsheet for intervention documentation. Skin Integrity - Skin intact and absence of new pressure injury. See Vignesh & Skin Assessment flowsheet for intervention documentation. * Care Plan - Laura Greer RN - 06/13/2024 7:22 PM CDT End of Shift Summary and Plan of Care Procedure(s): Right - Right total hip arthroplasty direct anterior approach - Wound Class: Clean Surgeon(s): Kai Carrillo MD Day of Surgery Pain/Comfort: Pt has had mild to moderate pain. PRN oxy given x 1, along with scheduled tylenol andToradol. Ice packs and repositioning utilized. Assessment/Interventions: CMS intact. Has ABD with prineo that is CDI. Voiding adequately. Tolerating a regular diet. Activity: Pt ambulating with 1A w/ walker. Tolerating well. Sitting in chair for meals. Worked withPT. Goals/Discharge Plan: Pt to discharge home with sister after PT at 10:30. Patient has met discharge criteria and goals adequately for discharge Goals/Plan for Shift Patient/Family stated goal for shift: pain management Nursing goal for shift: Pain management, ambulate in hallway Plan/Interventions to meet goal: Give pain meds when need, repostion, ice, and ambulate in hallway Goals per Patient Condition Fall Prevention Plan - Absence of falls. See Fall Risk flowsheet for intervention documentation. Skin Integrity - Skin intact and absence of new pressure injury. See Vignesh & Skin Assessment flowsheet for intervention documentation. * Op Note - Kai Carrillo MD - 06/13/2024 5:32 PM CDT [facility] Kriss Song Date of : 1960 Age: [age] year old Date of Procedure: 06/13/2024 SURGEON KAI CARRILLO M.D. SILVER PLATER Maria Del Carmen Morocho PA-C - Assisting PREOPERATIVE DIAGNOSIS Right hip osteoarthritis, failed to respond to conservative management. POSTOPERATIVE DIAGNOSIS Right hip osteoarthritis, failed to respond to conservative management. TITLE OF PROCEDURE Right total hip arthroplasty, Depuy uncemented components, direct anterior approach. Translimit computerassisted fluoroscopic hip navigation. ANESTHESIA TYPE: General ESTIMATED BLOOD LOSS: 500 mL SPECIMEN(S) No Specimens Collected COMPLICATIONS: none IMPLANT(S): Implant Name Type Inv. Item Serial No. [place] Lot No. LRB No. Used Action APEX HOLE ELIMINATOR PS - [id number] APEX HOLE ELIMINATOR PS NA DEPUY [id number] Right 1 Implanted CUP ACET 52MM PINNACLE SECTOR II - [id number] CUP ACET 52MM PINNACLE SECTOR II NA DEPUY [id number] Right 1 Implanted SCREW BONE PINNACLE CANCELLOUS 6.5X25MM - [id number] SCREW BONE PINNACLE CANCELLOUS 6.5X25MM NA DEPUY [id number] Right 1 Implanted LINER ACET ALTRX 36MM X 52MM NEUTRAL - [id number] LINER ACET ALTRX 36MM X 52MM NEUTRAL NA DEPUY [id number] Right 1 Implanted SCREW BONE CANCELLOUS 6.5MM X 35MM - [id number] SCREW BONE CANCELLOUS 6.5MM X 35MM NA DEPUY [id number] Right 1 Implanted STEM FEMORAL ACTIS DUOFIX SZ 3 - [id number] STEM FEMORAL ACTIS DUOFIX SZ 3 NA DEPUY [id number] Right 1Implanted HEAD FEMORAL BIOLOX DELTA SZ 36 +1.5MM - [id number] HEAD FEMORAL BIOLOX DELTA SZ 36 +1.5MM NA [id number] Right 1 Implanted PROCEDURE The patient was brought to the operating room and after satisfactory anesthesia was placed on the [place] table. The right lower extremity was then prepped and draped in the usual sterile fashion. BigRoadputer assisted fluoroscopic hip navigation was utilized during the case for component positioning as well as leg length assessment. An incision was made just lateral [...] then secondarily up along the femoral neck and head, finally completed by releasing along the saddle of the trochanter. The capsular edges were tagged for later repair. The hip was then externally rotated and medial capsular release was performed such that the lesser trochanter could be palpated. Following this, the femoral neckwas osteotomized as per the preoperative plan. The femoral head was removed with a corkscrew without difficulty. The acetabulum was exposed and was reamed sequentially up to 52 mm. This was reamed under both direct visualization as well as the aid of image intensification. A 52 mm [place] cup was impacted into place in approximately 40 to 45 degrees of abduction, and 20 degrees of anteversion. Two screws were placed and this gave excellent fixation. The 36 [...] The broaches were performed up to size 3 Actis, which gave excellent torsinal as well as axial stability. Trial reduction was performed with a standard offset +1.5mmhead. The hip was reduced and with hip reduction the combined anteversion looked excellent. The hipwas brought into full extension and external rotation. There was no evidence of instability. As well, x-rays were printed and compared with the opposite side and found to have good length and restorationism of offset. It was felt that an additional stem size could not be placed. The hip was then dislocated and then the proximal femur was then brought back up into the proximal aspect of the wound. The real size 3 actis stem, standard offset was impacted into place. Again this gave excellent torsionas well as axial stability. The real +1.5mm ceramic biolox head was impacted into place and the hipwas reduced again. The image intensification confirmed excellent position of the components. A 3 minute dilute betadine soak was performed. The wound was thoroughly irrigated. One gram of vancomycin powder was placed deep and superficial prior to closure. The capsule was closed with interrupted 0 Vicryl suture and tissues infiltrated with toradol/marcaine mixture. The tensor fascia was closed with a running 0 Stratafix suture. The subcutaneous layer was closed with interrupted 2-0 Vicryl, 2-0 Stratafix, and 3- 0 subcuticular monocryl was placed followed by a mesh dressing with skin glue. Sterile dressing was applied. The patient left the operating room in satisfactory condition. Patient received 1 gm of tranexamic acid pre-op. A skilled law office assistant was necessary for this procedure for assistance with patient positioning,prepping, draping, surgical visualization, performance of the repair, wound closure, and application of the dressing. * Rehab Evaluation - Jana Hough, PT - 06/13/2024 2:40 PM CDT PHYSICAL THERAPY ACUTE CARE ORTHOPEDIC EVALUATION (HIP) Subjective Patient is a 63 y/o female who is s/p right ARVIND on 06/13/24- today. Pt is sitting in the recliner and is agreeable to participate with physical therapy. Pt's sister Eloise will be her cricket coach. Pt had her left hip replaced in March 2024 at [facility] Admission Diagnosis: Degenerative joint disease of right hip M16.11 Treatment Diagnosis: Pain, decreased ROM/strength, and impaired mobility status post right ARVIND. Procedures/Diagnostics Affecting Therapy: Procedure(s): Right - Right total hip arthroplasty direct anterior approach - Wound Class: Clean See chart. All relevant imaging, procedures, and diagnostics reviewed prior to PT evaluation. Pertinent PMHx: HTN, CAD, CADENCE, GERD, anxiety Functional Level Prior to Admit: Patient independent with all mobility and ADLs Pain: 1-3 Precautions: OI PT hip precaution: No hip precaution secondary to surgical approach. Ambulation only. WBAT Current Living Situation/Social History: Patient lives with sister Eloise one level home with 2 stairs to enter without rail. Durable Medical Equipment Owned: Single end cane Front wheeled walker Higher toilet Patient's Goal(s): to walk without leg giving out and no hip pain Objective Cognition: Alert , Oriented, and Cooperative Functional Mobility Assessment Supine to Sit: didn't attempt Sit to Supine: didn't attempt Sit<>Stand: modified independence and standby assist Bed<>Chair: didn't attempt Gait: Patient ambulated 120 ft with FWW and modified independence and standby assist. Gait pattern: reciprocal, steady, continuous. Forward flex'd at trunk. Tightness anterior right hip.vc's to stand tall Stairs: N/T Tests and Measures: Motor/Sensation: Patient was able to elicit quad set, patient was able to perform LAQ x 5 reps withexamination. Patient also demonstrates sensation of BLE WFL for initiation of mobility. Ankle DF 5/5 Intervention: Therapeutic exercise: Therapeutic Exercises: Patient participated in the following post operative total hip arthroplasty exercise instruction and carry out of the following exercises; supine ankle pumps, supine glut squeeze 5 second hold, SLR (with assist), heel slide, seated knee extension x 5 reps of each. Standing therapeutic exercise were held during evaluation due to safety concerns for balance POD0. Therapeutic Activity: Skilled therapeutic education, funeral counselor and activity modification was providedto patient for the purpose and intent of improving functional mobility and activities of daily living. Therapist provided education regarding the following topics; Toilet: Physical therapist provided assistance post operatively for safe negotiation and completionof toileting with education on appropriate transfer mechanics, post operative precaution/consideration and home education training. Pt required stand by assistance and vc's for safe carry out of task. Gait Training: The patient participates in gait training to improve functional mobility as it relates to ambulation. Therapist provided verbal cues to improve patient understanding and to address aforementioned impairments. The patient has good tolerance this encounter, and required stand by assistance and FWW assistive device. Vitals/Observations/Response to Treatment: Stable throughout session No complaints of dizziness/lightheadedness No complaints or indications of shortness of breath Patient/Caregiver Education: Ambulation only- ARVIND: Education provided on fall avoidance within home and DME needs; frequency of ambulation every 1-1.5 hours for 5 minutes with walker and as appropriate progression to cane, icingevery hour for 20-30 minutes during the day; avoidance of over-doing activity; elevation on multiple pillows to decrease swelling and safe coaching handling techniques as well as review of total hip p recautions set forth by surgeon. Educated on surgeon preference for ambulation only for post operative activity. Barriers to Learning: None Evaluation, assessment, goals, and plan of care discussed with patient. The patient received written information and verbal information. The opportunity to ask questions was offered. The patient verbalized and demonstrated good understanding. Interdisciplinary Communication: Evaluation, goals, and plan of care discussed with nursing. Assessment/Plan Patient is a 63 year old female with pain, decreased ROM/Strength and impaired mobility status postright ARVIND. Patient was limited by pain in Hip with mobility prior to surgery. Today, the patient has good tolerance to session and requires stand by assistance for mobility with use of FWW. Throughout visit, PT observed incision site for drainage- no concerns to note. Patient is appropriate for [facility] led physical therapy services. Barriers to Discharge Home: No anticipated barriers PLAN OF CARE Recommendations for Discharge: Home with caregiver / Family support Anticipated DME Needs for Discharge: patients has all necessary AD's Goals to be met by discharge from facility Goals to be met by patient discharge: Patient will ambulate 120 + feet with SBA/independent and appropriate assistive device. Patient will demonstrate modified independence with bed, chair and car transfer while maintaining hip precautions as applicable. Patient will demonstrate 3 stairs with SBA/independent with appropriate assistive device. Patient will demonstrate/verbalize understanding of post op HEP, precautions, fall avoidance education and recommendations for home s/p ARVIND. Rehab Potential: Good Frequency of Physical Therapy Recommended: 1-2x follow up treatment until discharge Planned interventions may consist of any combination of the following: Therapeutic Exercise (strength/range of motion) Therapeutic Activities (transfer training/functional mobility) Gait Training Neuromuscular Re-education Manual Therapy Patient/Caregiver Education Home Exercise Program Self-Care/Home Management (ADL's) PT Total Treatment Time: 30 minutes Evaluation Moderate - Complexity (03134) Therapeutic Activities (63906) = 12 minutes Gait Training (53741) = 8 minutes * Brief Op Note - Kai Carrillo MD - 06/13/2024 10:53 AM CDT [facility] B[facility] Pre-Op Diagnosis: Right hip degenerative joint disease M16.11, CPT: 58012 Post-Op Diagnosis: Same Procedure(s): Right direct anterior total hip arthroplasty Anesthesia Type: General Surgeons and Role: * Kai Carrillo MD - Primary * Maria Del Carmen Morocho PA-C - Assisting Estimated Blood Loss: 500 mL Specimen(s): No Specimens Collected Complications: None Implant(s): Implant Name Type Inv. Item Serial No. Gopherman Lot No. LRB No. Used Action APEX HOLE ELIMINATOR PS - [id number] APEX HOLE ELIMINATOR PS NA DEPUY [id number] Right 1 Implanted CUP ACET 52MM PINNACLE SECTOR II - [id number] CUP ACET 52MM PINNACLE SECTOR II NA DEPUY [id number] Right 1 Implanted SCREW BONE PINNACLE CANCELLOUS 6.5X25MM - [id number] SCREW BONE PINNACLE CANCELLOUS 6.5X25MM NA DEPUY [id number] Right 1 Implanted LINER ACET ALTRX 36MM X 52MM NEUTRAL - [id number] LINER ACET ALTRX 36MM X 52MM NEUTRAL NA DEPUY [id number] Right 1 Implanted SCREW BONE CANCELLOUS 6.5MM X 35MM - [id number] SCREW BONE CANCELLOUS 6.5MM X 35MM NA DEPUY [id number] Right 1 Implanted STEM FEMORAL ACTIS DUOFIX SZ 3 - [id number] STEM FEMORAL ACTIS DUOFIX SZ 3 NA DEPUY [id number] Right 1Implanted HEAD FEMORAL BIOLOX DELTA SZ 36 +1.5MM - [id number] HEAD FEMORAL BIOLOX DELTA SZ 36 +1.5MM NA [id number] Right 1 Implanted Plan: DC home POD1 w/family assist. DVT prophylaxis w/ASA 325mg QD x6wks. Kai Carrillo MD All surgical medications, procedures, specimens, and imaging performed in the operating room are onthe order of the operating physician(s). See other operative note for full details * Plan of Care - Adamaris Villa PA-C - 06/10/2024 1:45 PM CDT PREOPERATIVE ASSESSMENT NOTE Procedure(s): Right total hip arthroplasty direct anterior approach Date of Surgery: 06/13/[address] Kai Carrillo Post-op appointment scheduled with Dr. Carrillo on 07/02/24 at 2:00 PM at the [place] office Patient's goals after surgery: less pain Patient's concerns with upcoming surgery: none H&P Patient's pre-operative history and physical with their primary care physician was reviewed. From that, the following should be noted: -HTN, CAD, psoriatic arthritis (holding humira currently), untreated CADENCE (AHI 13 from 2016), GERD, anxiety -s/p LTHA 03/20/24 at [facility]. No complications per patient. Discharged POD #1. Discharged on aspirin. -Cleared for surgery per PCP. Patient does meet criteria for hospitalist comanagement. Antibiotic use in last 14 days: no History of defibrillator or pacemaker? no Significant past medical history pertinent to surgery: See above. Denies prior history of anesthetic reactions, malignant hyperthermia or difficult intubation. Any history of antibodies in blood? no History of DVT/PE or clotting disorder including Factor V Leiden? no DVT Prophylaxis Medication Plan: including aspirin 325 mg daily x42 days Allergies were reviewed: Sulfa-rash Bupropion-rash Sertraline-rash BMI: 33.9 Labs were reviewed and discussed, notably: 05/19/24 HGB: 13.0 Cr: 0.7 GFR: 98 Glucose: 111 Hgb A1c: 5.3 Na: 139 K: 4.2 Prior to Admission Medications:*was not approved for [facility] Patient will continue the following medications: atorvastatin, citalopram, metoprolol, Prilosec Patient will hold the following medications: losartan They understand all vitamin supplements and herbal medications should be stopped 7 days prior to surgery. They understand they should not use any aspirin, aspirin-containing products, or anti-inflammatory medication for 7 days prior to surgery. They are able to continue to use Tylenol as needed up until the day before surgery. Guidebook reference to medications was given to patient (pages 7 & 19). Patient's code status was reviewed and is Full Code. Post-Operative Discharge Planning Patient agrees with: Anticipated discharge on post-op day 1 Anticipated time of discharge between 9:00AM-12:00PM with their petrol tanker driver arriving by 8:00 AM Plant Senior Manager: Eloise saleem Discharge location: home Anticipated Home Health Services: None Medical Secretary Receptionist/Family member available after discharge: Niece will stay with patient first 2 nights (was notpresent for this discussion) Post-operative medication plan and education was discussed Patient's medication dosing and sig for the above medications to be determined post-operatively. In the event of a concern arising after surgery, the patient was provided with the following information: During business hours, call surgeon's career technical education instructor, Marysol Ghotra at [phone]. After business hours, call the on-call provider at [phone]. [facility] was discussed. They were asked to first contact [facility] for continuity of care prior to going to another urgent care or ER for issues related to their surgery. They were instructed to go to the ER promptly for any medical emergency that may arise after discharge. Further education was provided to the patient on the following topics and corresponding page numbers from the guidebook were given: CHG Soap (Hibiclens, etc) Page 22 Patient will purchase soap prior to surgery. They will follow theinstructions for showering with the soap the night before surgery and the morning of surgery. Assistive Devices Page 17/51 They understand their cricket coach should bring their assistive device to their inpatient room after surgery. If they do not have one, their therapist will dispense one as needed. Dental Appointments Page 12 We discussed holding off on any routine dental work for 3 months. Following that timeframe, the patient understands they will use antibiotics one hour prior to any dental work, this includes routine cleanings (Amoxicillin 500mg - 4 tablets). Anesthesia Page 24 The anesthesiologist will discuss the anesthesia care plan with the patient the day of surgery. Incision/Dressing Care Page 33/42 We discussed the type of dressing the patient can expect after surgery as well as how to care for it, how to recognize increased drainage or bleeding, as well as bathing after surgery. They understand that bruising is normal after total joint surgery and will migrate down their extremity in the week following surgery. Post-Op Medications Page 29, 32, 39-41, 54(knee) 56(hip) We discussed the patient's individualized post-operative medication plan and each medication was explained and questions were answered. Guidebook references were given. The patient will likely discharge home with the following medications, patient specific dosing willbe determined post-operatively: ASPIRIN - they understand this medication should not be combined with other medication containing aspirin products and will replace any other aspirin they may be taking. TYLENOL - this medication helps with pain. They will take Tylenol scheduled as long as they have pain. Most patients typically need this medication for 2-3 weeks but some may need it up to 6-8 weeks.Tylenol can be taking safely with the narcotic pain medication, anti-inflammatory, and aspirin. CELEBREX - this is an anti-inflammatory medication that will be taken as prescribed after surgery. They understand they will not take another anti- inflammatory while taking this medication. OXYCODONE - this is a narcotic pain medication and should be used sparingly but used as needed for pain. They understand this is the first of the medications used for pain that they should wean from.Most patients only need this medication for 1-2 weeks after surgery. We discussed titrating the narcotic based on their level of pain as follows: 1/2-1 tablet every 4-6 hours as needed for pain rating 3-6 (moderate pain) or 1-2 tablets every 4-6 hours as needed for pain rating 7- 10 (severe pain). This medication will not be used for pain rating <3 (mild pain). SENOKOT - this stool softener/laxative combination pill will be used after surgery as needed for constipation. 1-2 tablets can be taken as needed. Omeprozole 20 mg 1 tab daily x6 weeks while taking aspirin and Celebrex, #42 They understand there is not an outpatient pharmacy at the [facility] and they will need to last picker their post-operative medications at a pharmacy of their choice once they are discharged. Medication Refills Page 39 They understand it is best to allow at lest 48 hours for refills and that all refills can be requested through their pharmacy or directly with their surgeon's team. I did call out that any refills needed before the weekend will need to be submitted on . Pain Control Strategies Page 29 In addition to medication to control pain, we discussed non-medication strategies to helping with pain control and swelling (RICE). Icing and elevating often is extremely beneficial, we discussed a goal of 4-5 times a day for 20-30 minutes at a time. Swelling Page 31/35 Swelling will last at least 3-4 months and take a year to be as good as it's going to get. The operative side may never completely look the same as it did prior to surgery. It is normal for the swelling to cause stiffness in the morning and increase throughout the day with the most swelling being present in the evening. Swelling does go with gravity so the lower leg/arm or foot/hand will be swollen too. If swelling increases dramatically, this typically means your are being a little too active. Constipation Page 32/40 We discussed this is very common after surgery secondary to anesthesia, inactivity, and narcotic pain medication. In addition to the prescribed medication we discussed the useof Miralax, probiotics, prunes/prune juice, fiber rich diet, and hydration. In addition, increasingactivity as they are able will be helpful. They understand if they are having significant trouble they can try magnesium citrate, a suppository, or a Fleet enema. DVT Page 43 We discussed the signs, symptoms, and prophylactic treatment for DVTs post-operatively.We also discussed the importance of recognizing and reporting these symptoms. They understand they should call the office right away to report any concern for post-operative DVT. Activity Post-Operatively Page 35, 50(hip) 55(knee) The patient understands it is best to return to activity slowly and follow the instructions given to them by their surgeon's team. Having an active recovery and increasing activity as pain allows will also help reduce complications (pain, swelling, DVT, etc). General Day of Surgery Timeline Page 23 I briefly ran through what they can expect on the day of surgery after arriving at the [facility]. Avoiding a Delayed Surgery Page 10 I gave them this reference to use between now and surgery to avoid their surgery being delayed or cancelled. Adamaris Villa PA-C [facility] documented in this encounter Plan of Treatment Not on file documented as of this encounter Procedures Procedure Name Priority Date/Time Associated Diagnosis Comments HEMOGLOBIN Routine 06/14/2024 7:17 AM CDT XR HIP RIGHT 2 OR 3 VIEWS W PELVIS Routine 06/13/2024 11:15 AM CDT Status post total replacement of right hip XR C ARM FLUORO Routine 06/13/2024 10:19 AM CDT TOTAL HIP REPLACEMENT 06/13/2024 8:14 AM CDT Degenerative joint disease of right hip M16.11 Case Notes Depuy actis documented in this encounter Results * (ABNORMAL) HEMOGLOBIN (06/14/2024 7:17 AM CDT) HGB 9.7(L) 12.0 - 16.0 g/dl 06/14/2024 7:31 AM CDT [facility] Blood BLOOD SPECIMEN / Unknown Venipuncture / Unknown 06/14/2024 7:17 AM CDT 06/14/2024 7:27 AM CDT us Kai Carrillo MD [facility] HEMATOLOGY ORDERABLES Final Result [facility] [address] [place] [address] * XR HIP RIGHT 2 OR 3 [...] Arroyo MD Report Date: 06/13/2024 12:29 PM Kai Carrillo MD [facility] DIAGNOSTIC IMAGING ORDERABL ES Final [...] MD Report Date: 06/13/2024 10:41 AM Adamaris [facility] DIAGNO[facility] IMAGING ORDER [facility]WIN Final Result documented in this encounter Visit Diagnoses Not on filedocumented in this encounter Administered Medications Inactive Administered Medications Medication Order MAR Action Action Date Dose Rate Site acetaminophen (Tylenol) tablet 1,000 mg 1,000 mg, Oral, ONCE, 1 dose, On Sun06/13/24 at 0630 Given 06/13/2024 7:01 AM CDT 1,000 mg acetaminophen (Tylenol) tablet 1,000 mg 1,000 mg, Oral, 3 TIMES DAILY, First dose on Sun06/13/24 at 1400, Until Discontinued Given 06/14/2024 8:16 AM CDT 1,000 mg Given 06/13/2024 8:48 PM CDT 1,000 mg Given 06/13/2024 1:17 PM CDT 1,000 mg aspirin tablet 325 mg 325 mg, Oral, ONCE DAILY, First dose on Sun06/14/24 at 0900, Until Discontinued Given 06/14/2024 8:16 AM CDT 325 mg atorvaSTATin (Lipitor) tablet 40 mg 40 mg, Oral, EVERY EVENING, First dose on Sun06/13/24 at 2000, Until Discontinued Given 06/13/2024 8:47 PM CDT 40 mg ceFAZolin (ANCEF) 2 g in dextrose 4% IVPB 100 mL 2 g, Intravenous, at 200 mL/hr, *EVERY 8 HOURS, 2 doses, First dose on Sun06/13/24 at 1600, Last dose on Sun06/14/24 at 0000, Indication? surgical prophylaxis New Bag 06/13/2024 11:13 PM CDT 2 g 200 mL/hr New Bag 06/13/2024 4:10 PM CDT 2 g 200 mL/hr diphenhydrAMINE (Benadryl) capsule 25-50 mg 25-50 mg, Oral, EVERY 4 HOURS NEEDED, Starting on Sun06/13/24 at 1206, Until Sun06/14/24 at 1502, Itching diphenhydrAMINE (Benadryl) injection 25-50 mg 25-50 mg, IV Push, EVERY 4 HOURS NEEDED, Starting on Sun06/13/24 at 1206, Until 06/14/24 at 1502, Itching ethyl alcohol nasal 62 % swab Nasal, ONCE, 1 dose, On Sun06/13/24 at 0630 Given 06/13/2024 7:02 AM CDT 2 Swabs ethyl alcohol nasal 62 % swab Nasal, 2 (two) times daily, First dose on Sun06/13/24 at 2100, Until Discontinued Given 06/14/2024 8:17 AM CDT Given 06/13/2024 8:48 PM CDT 2 Swabs HYDROmorphone (Dilaudid) injection 0.5 mg 0.5 mg, IV Push, EVERY 10 MIN NEEDED, 8 doses, Starting on Sun06/13/24 at 1025, Until Sun06/13/24 at 1151, Moderate Pain (4-6) Given 06/13/2024 11:18 AM CDT 0.5 mg hydrOXYzine (VISTARIL) injection 25 mg 25 mg, Intramuscular, NEEDED, 2 doses, Starting on Sun06/13/24 at 1025, Until Sun06/13/24 at 1151, Other, augmented effects of narcotics muscle relaxant, anxiety, pruritus Given 06/13/2024 11:20 AM CDT 25 mg Left Thigh hydrOXYzine pamoate (Vistaril) capsule 25 mg 25 mg, Oral, EVERY 6 HOURS NEEDED, Starting on Sun06/13/24 at 1206, Until 06/14/24 at 1502, Other, Muscle Spasms Given 06/14/2024 5:37 AM CDT 25 mg Given 06/13/2024 8:48 PM CDT 25 mg ketorolac (Toradol) injection 30 mg 30 mg, IV Push, *EVERY 6 HOURS, 4 doses, First dose on Sun06/13/24 at 1630, Last dose on Sun06/14/24 at 1030 Given 06/14/2024 10:15 AM CDT 30 mg Given 06/14/2024 5:29 AM CDT 30 mg Given 06/13/2024 11:13 PM CDT 30 mg Given 06/13/2024 4:05 PM CDT 30 mg lactated ringers infusion 10-50 mL/hr, Intravenous, CONTINUOUS, Starting on Sun06/13/24 at 0630, Until 06/14/24 at 1502 Restarted 06/13/2024 8:14 AM CDT New Bag 06/13/2024 7:02 AM CDT 20 mL/hr 20 mL/hr melatonin tablet 6 mg 6 mg, Oral, AT BEDTIME NEEDED, Starting on Sun06/13/24 at 1206, Until 06/14/24 at 1502, Sleep Given 06/13/2024 8:47 PM CDT 6 mg metoprolol tartrate (Lopressor) tablet 25 mg 25 mg, Oral, 2 TIMES DAILY, First dose on Sun06/13/24 at 2000, Until Discontinued Given 06/13/2024 8:47 PM CDT 25 mg ondansetron (Zofran ODT) disintegrating tablet 4 mg 4 mg, Oral, EVERY 6 HOURS NEEDED, Starting on Sun06/13/24 at 1206, Until 06/14/24 at 1502, Nausea, Vomiting ondansetron (Zofran) injection 4 mg 4 mg, IV Push, EVERY 6 HOURS NEEDED, Starting on Sun06/13/24 at 1206, Until 06/14/24 at 1502, Nausea, Vomiting oxyCODONE (Roxicodone) immediate release tablet 5-10 mg 5-10 mg, Oral, EVERY 4 HOURS NEEDED, Starting on Sun06/13/24 at 1206, Until 06/14/24 at 1502, Moderate Pain (4-6), Severe Pain (7-10) Given 06/14/2024 5:37 AM CDT 10 mg Given 06/13/2024 8:47 PM CDT 5 mg Given 06/13/2024 5:07 PM CDT 5 mg pantoprazole (Protonix) tablet 20 mg 20 mg, Oral, ONCE DAILY, First dose on Sun06/13/24 at 1700, Until Discontinued Given 06/14/2024 8:16 AM CDT 20 mg Given 06/13/2024 4:00 PM CDT 20 mg pregabalin (Lyrica) capsule 75 mg 75 mg, Oral, ONCE, 1 dose, On Sun06/13/24 at 0630 Given 06/13/2024 7:01 AM CDT 75 mg prochlorperazine (COMPAZINE) injection 10 mg 10 mg, IV Push, EVERY 6 HOURS NEEDED, Starting on Sun06/13/24 at 1206, Until 06/14/24 at 1502, Nausea, Vomiting prochlorperazine (Compazine) tablet 10 mg 10 mg, Oral, EVERY 6 HOURS NEEDED, Starting on Sun06/13/24 at 1206, Until 06/14/24 at 1502, Nausea, Vomiting ROPivacaine (Naropin) 300 mg, EPINEPHrine (Adrenalin) 0.6 mg, ketorolac (TORADOL) 15 mg in sodium chloride 0.9% (NS) 38.4 mL solution 100 mL, Infiltration, ONCE NEEDED, 1 dose, Starting on Sun06/13/24 at 0800, Until Sun06/13/24 at 1011, Other, field block Given 06/13/2024 10:11 AM CDT Righ t Hip Joint sodium chloride 0.9% IV FLUSH (NS) SYRINGE 5 mL 5 mL, IV Flush, EVERY 8 HOURS, First dose on Sun06/13/24 at 1400, Until Discontinued Given 06/14/2024 5:32 AM CDT 5 mL Given 06/13/2024 11:13 PM CDT 5 mL Given 06/13/2024 1:19 PM CDT 5 mL vancomycin (Vancocin) injection NEEDED, Starting on Sun06/13/24 at 1020, Until Sun06/13/24 at 1053Indications:Infection Given 06/13/2024 10:20 AM CDT 1 g Right Hip Joint documented in this encounter Discontinued Medications Medication Sig Discontinue Reason Start Date End Da te aspirin EC 81 MG tablet Take 81 mg by mouth one time a day. Other 06/14/2024 documented as of this encounter Historical Medications * This list may reflect changes made after this encounter. diphenhydrAMINE-A PAP, sleep, (TYLENOL PM EXTRA STRENGTH OR) Take 1 Tablet by mouth at bedtime as needed. omeprazole (PriLOSEC) 20 MG delayed-release capsule Take 20 mg by mouth one time a day. 01/19/2015 Multiple Vitamin (Daily Vites) Tablet tablet Take 1 Tablet by mouth one time a day. metoprolol tartrate (Lopressor) 25 MG tablet Take 25 mg by mouth two times a day. 02/23/2023 losartan (Cozaar) 100 MG tablet Take 100 mg by mouth one time a day. 02/23/2023 citalopram (CeleXA) 20 MG tablet Take 20 mg by mouth one time a day. 12/25/2017 atorvaSTATin (Lipitor) 40 MG tablet Take 40 mg by mouth one time a day. 04/06/2022 aspirin EC 81 MG tablet Take 81 mg by mouth one time a day. 06/14/2024 added in this encounter Active and Recently Administered Medications Times are shown in CDT. Scheduled Medication Order 06/12/2024 06/13/2024 06/14/2024 acetaminophen (Tylenol) tablet 1,000 mg (COMPLETED) 1,000 mg, Oral, ONCE, 1 dose, On Sun06/13/24 at 0630 0701 (Given - Provider: Jo Currie RN) acetaminophen (Tylenol) tablet 1,000 mg 1,000 mg, Oral, 3 TIMES DAILY, First dose on Sun06/13/24 at 1400, Until Discontinued 1317 (Given - Provider: Laura Greer RN)2047 (Given - Provider: Lucy Polk, ANUM) 08 (Given - Provider: Laura Greer RN) aspirin tablet 325 mg 325 mg, Oral, ONCE DAILY, First dose on 06/14/24 at 0900, Until Discontinued 815 (Given - Provid er: Laura Greer RN) atorvaSTATin (Lipitor) tablet 40 mg 40 mg, Oral, EVERY EVENING, First dose on Sun06/13/24 at 2000, Until Discontinued 2046 (Given - Provider: Lucy Polk RN) ceFAZolin (ANCEF) 2 g in dextrose 4% IVPB 100 mL (COMPLETED) 2,000 mg, Intravenous, at 200 mL/hr, ONCE, 1 dose, On Sun06/13/24 at 0630, Indication? surgical prophylaxis 0814 (Given - Provider: Klever Coleman APRN, [employer]) ceFAZolin (ANCEF) 2 g in dextrose 4% IVPB 100 mL (COMPLETED) 2 g, Intravenous, at 200 mL/hr, *EVERY 8 HOURS, 2 doses, First dose on Sun06/13/24 at 1600, Last dose on Sun06/14/24 at 0000, Indication? surgical prophylaxis 1610 (New Bag - Provider: Laura Greer RN)1646 (Stopped - Provider: Laura Greer RN)2313 (New Bag - Provider: Rachel Olmos RN)2343 (Stopped - Provider: Rachel Olmos RN) citalopram (CeleXA) tablet 20 mg 20 mg, Oral, ONCE DAILY, First dose on Sun06/13/24 at 2000, Until Discontinued 2033 (Not Given - Provider: Lucy Polk RN - Reason: Patient/Family refused - Comment: patient states they take it in the morning) ethyl alcohol nasal 62 % swab (COMPLETED) Nasal, ONCE, 1 dose, On Sun06/13/24 at 0630 0702 (Given - Provider: Jo Currie RN) ethyl alcohol nasal 62 % swab Nasal, 2 (two) times daily, First dose on Sun06/13/24 at 2100, Until Discontinued 2047 (Given - Provider: Lucy Polk RN) 0817 (Given - Provider: Laura Greer RN) ketorolac (Toradol) injection 30 mg (COMPLETED) 30 mg, IV Push, *EVERY 6 HOURS, 4 doses, First dose on Sun06/13/24 at 1630, Last dose on Sun06/14/24 at 1030 1605 (Given - Provider: Laura Greer RN)2313 (Given - Provider: Rachel Olmos RN) 0529 (Given - Provider: Rachel Olmos RN)1015 (Given - Provider: Laura Greer RN) losartan (Cozaar) tablet 100 mg 100 mg, Oral, ONCE DAILY, First dose on Sun06/14/24 at 0800, Until Discontinued 0819 (Not Given - Provider: Laura Greer RN - Reason: Order Parameters not met) metoprolol tartrate (Lopressor) tablet 25 mg 25 mg, Oral, 2 TIMES DAILY, First dose on Sun06/13/24 at 2000, Until Discontinued 2047 (Given - Provider: Lucy Polk RN) 0819 (Not Given - Provider: Laura Greer RN - Reason: Order Parameters not met) pantoprazole (Protonix) tablet 20 mg 20 mg, Oral, ONCE DAILY, First dose on Sun06/13/24 at 1700, Until Discontinued 1600 (Given - Provider: Laura Greer RN) 0816 (Given - Provider: Laura Greer RN) polyethylene glycol 3350 (Glycolax, Miralax) packet 17 g 17 g, Oral, ONCE DAILY, First dose on Sun06/14/24 at 0900, Until Discontinued 0816 (Not Given - Provider: Laura Greer RN - Reason: Patient/Family refused) pregabalin (Lyrica) capsule 75 mg (COMPLETED) 75 mg, Oral, ONCE, 1 dose, On Sun06/13/24 at 0630 0701 (Given - Provider: Jo Currie RN) senna-docusate (Senokot-S) 8.6-50 MG per tablet 1 Tablet 1 Tablet, Oral, 2 TIMES DAILY, First dose on Sun06/13/24 at 2000, Until Discontinued 2033 (Not Given - Provider: Lucy Polk RN - Reason: Patient/Family refused - Comment: patient does not want .) 0816 (Not Given - Provider: Laura Greer RN - Reason: Patient/Family refused) sodium chloride 0.9% IV FLUSH (NS) SYRINGE 5 mL 5 mL, IV Flush, EVERY 8 HOURS, First dose on Sun06/13/24 at 1400, Until Discontinued 1319 (Given - Provider: Laura Greer RN)2313 (Given - Provider: Rachel Olmos, ANUM) 0532 (Given - Provider: Rachel Olmos RN) tranexamic acid (Cyklokapron) 1000 mg in sodium chloride 0.7% 100 mL (premix) (COMPLETED) 1,000 mg, Intravenous, at 200 mL/hr, ONCE, 1 dose, On Sun06/13/24 at 0630 1029 (Given - Provider: Yamila Cooper APRN, TARIQ) tranexamic acid (Cyklokapron) 1000 mg in sodium chloride 0.7% 100 mL (premix) (COMPLETED) 1,000 mg, Intravenous, at 200 mL/hr, ONCE, 1 dose, On Sun06/13/24 at 0630 0830 (Given - Provider: Klever Coleman APRN, TARIQ) Continuous Medication Order 06/12/2024 06/13/2024 06/14/2024 lactated ringers infusion 10-50 mL/hr, Intravenous, CONTINUOUS, Starting on Sun06/13/24 at 0630, Until 06/14/24 at 1502 0702 (New Bag - Provider: Jo Currie RN)0813 (Paused - Provider: Klever Coleman APRN, TARIQ - Comment: Switch to gravity)0814 (Restarted - Provider: Klever Coleman APRN, TARIQ)1049 (Anesthesia Volume Adjusted - Provider: Klever Coleman APRN, TARIQ) 1502 (Due: Stopped - Provider: Alejandrina Horan) lactated ringers infusion Intravenous, at 75 mL/hr, CONTINUOUS, Starting on Sun06/13/24 at 1230, Until 06/14/24 at 1502 1237 (Hold Single Dose - Provider: Laura Greer RN - Reason: Other - Comment: per provider order) PRN Medication Order 06/12/2024 06/13/2024 06/14/2024 benzocaine-menthol 15-2.6 MG Lozenge 1 Lozenge 1 Lozenge, Mouth/Throat, NEEDED, Starting on Sun06/13/24 at 1206, Until 06/14/24 at 1502, Other, throat discomfort bisacodyl (Dulcolax) suppository 10 mg 10 mg, Rectal, ONE TIME DAILY NEEDED, Starting on Sun06/13/24 at 1206, Until 06/14/24 at 1502, Constipation calcium carbonate (Tums) chewable tablet 500-1,000 mg 500-1,000 mg, Chew, NEEDED, Starting on Sun06/13/24 at 1206, Until 06/14/24 at 1502, Heartburn diphenhydrAMINE (Benadryl) capsule 25 mg(Linked Group 1) 25 mg, Oral, AT BEDTIME NEEDED, Starting on Sun06/13/24 at 1206, Until 06/14/24 at 1502, Sleep diphenhydrAMINE (Benadryl) capsule 25-50 mg(Linked Group 2) 25-50 mg, Oral, EVERY 4 HOURS NEEDED, Starting on Sun06/13/24 at 1206, Until 06/14/24 at 1502, Itching diphenhydrAMINE (Benadryl) injection 25-50 mg(Linked Group 2) 25-50 mg, IV Push, EVERY 4 HOURS NEEDED, Starting on Sun06/13/24 at 1206, Until 06/14/24 at 1502, Itching hydrALAZINE (Apresoline) tablet 25 mg 25 mg, Oral, EVERY 6 HOURS NEEDED, Starting on Sun06/13/24 at 1206, Until 06/14/24 at 1502, For SBP greater than 170, DBP greater than 100 HYDROmorphone (Dilaudid) injection 0.25-0.5 mg 0.25-0.5 mg, IV Push, EVERY 2 HOURS NEEDED, Starting on Sun06/13/24 at 1206, Until 10/12/24 at 1502, Moderate Pain (4-6), Severe Pain (7-10) HYDROmorphone (Dilaudid) injection 0.5 mg (CANCELED) 0.5 mg, IV Push, EVERY 10 MIN NEEDED, 8 doses, Starting on Sun06/13/24 at 1025, Until Sun06/13/24 at 1151, Moderate Pain (4-6) 1118 (Given - Provider: Tasha Keyes, RN) hydrOXYzine (VISTARIL) injection 25 mg (CANCELED) 25 mg, Intramuscular, NEEDED, 2 doses, Starting on Sun06/13/24 at 1025, Until Sun06/13/24 at 1151, Other, augmented effects of narcotics muscle relaxant, anxiety, pruritus 1120 (Given - Provider: Tasha Keyes, ANUM) hydrOXYzine pamoate (Vistaril) capsule 25 mg 25 mg, Oral, EVERY 6 HOURS NEEDED, Starting on Sun06/13/24 at 1206, Until 06/14/24 at 1502, Other, Muscle Spasms 2047 (Given - Provider: Lucy Polk RN) 0537 (Given - Provider: Rachel Olmos RN) lactated ringers BOLUS BAG 250 mL 250 mL, Intravenous, at 1,000 mL/hr, EVERY 30 MINUTES NEEDED, 2 doses, Starting on Sun06/13/24 at 1206, Until 06/14/24 at 1502 magnesium hydroxide (Milk of Magnesia) 400 MG/5ML suspension 30 mL 30 mL, Oral, ONE TIME DAILY NEEDED, Starting on Sun06/13/24 at 1206, Until 06/14/24 at 1502, Constipation melatonin tablet 6 mg 6 mg, Oral, AT BEDTIME NEEDED, Starting on Sun06/13/24 at 1206, Until 06/14/24 at 1502, Sleep 204 (Given - Provider: Lucy Polk RN) naloxone (Narcan) injection 0.1 mg 0.1 mg, IV Push, EVERY 3 MINUTES NEEDED, Starting on Sun06/13/24 at 1206, Until 06/14/24 at 1502, Respiratory Depression, 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, 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 ondansetron (Zofran ODT) disintegrating tablet 4 mg(Linked Group 3) 4 mg, Oral, EVERY 6 HOURS NEEDED, Starting on Sun06/13/24 at 1206, Until 06/14/24 at 1502, Nausea, Vomiting ondansetron (Zofran) injection 4 mg(Linked Group 3) 4 mg, IV Push, EVERY 6 HOURS NEEDED, Starting on Sun06/13/24 at 1206, Until 06/14/24 at 1502, Nausea, Vomiting oxyCODONE (Roxicodone) immediate release tablet 5-10 mg 5-10 mg, Oral, EVERY 4 HOURS NEEDED, Starting on Sun06/13/24 at 1206, Until 06/14/24 at 1502, Moderate Pain (4-6), Severe Pain (7-10) 1707 (Given - Provider: Laura Greer RN)2047 (Given - Provider: Lucy Pokl RN) 0537 (Given - Provider: Rachel Olmos RN) prochlorperazine (COMPAZINE) injection 10 mg(Linked Group 4) 10 mg, IV Push, EVERY 6 HOURS NEEDED, Starting on Sun06/13/24 at 1206, Until 06/14/24 at 1502, Nausea, Vomiting prochlorperazine (Compazine) tablet 10 mg(Linked Group 4) 10 mg, Oral, EVERY 6 HOURS NEEDED, Starting on Sun06/13/24 at 1206, Until 06/14/24 at 1502, Nausea, Vomiting ROPivacaine (Naropin) 300 mg, EPINEPHrine (Adrenalin) 0.6 mg, ketorolac (TORADOL) 15 mg in sodium chloride 0.9% (NS) 38.4 mL solution (COMPLETED) 100 mL, Infiltration, ONCE NEEDED, 1 dose, Starting on Sun06/13/24 at 0800, Until Sun06/13/24 at 1011, Other, field block 1011 (Given - Provider: Kai Carrillo MD) sodium chloride 0.9% IV FLUSH (NS) SYRINGE 5 mL 5 mL, IV Flush, NEEDED, Starting on Sun06/13/24 at 1206, Until 06/14/24 at 1502, Other, IV Line Flushing sodium phosphate (Fleet) 7-19 GM/118ML enema 1 Enema 1 Enema, Rectal, ONE TIME DAILY NEEDED, Starting on Sun06/13/24 at 1206, Until 06/14/24 at 1502, Constipation, For constipation refractory to SENAKOT-S or DULCOLAX vancomycin (Vancocin) injection (CANCELED) NEEDED, Starting on Sun06/13/24 at 1020, Until Sun06/13/24 at 1053 1020 (Given - Provider: Kai Carrillo MD) Linked Groups Order Group 1: melatonin tablet 3 mg (CANCELED) 3 mg, Oral, AT BEDTIME NEEDED, Starting on Sun06/13/24 at 1206, Until Sun06/13/24 at 1218, Sleep And diphenhydrAMINE (Benadryl) capsule 25 mgJump to med 25 mg, Oral, AT BEDTIME NEEDED, Starting on Sun06/13/24 at 1206, Until 06/14/24 at 1502, Sleep Group 2: diphenhydrAMINE (Benadryl) capsule 25-50 mgJump to med 25-50 mg, Oral, EVERY 4 HOURS NEEDED, Starting on Sun06/13/24 at 1206, Until 06/14/24 at 1502, Itching Or diphenhydrAMINE (Benadryl) injection 25-50 mgJump to med 25-50 mg, IV Push, EVERY 4 HOURS NEEDED, Starting on Sun06/13/24 at 1206, Until 06/14/24 at 1502, Itching Group 3: ondansetron (Zofran) injection 4 mgJump to med 4 mg, IV Push, EVERY 6 HOURS NEEDED, Starting on Sun06/13/24 at 1206, Until 06/14/24 at 1502, Nausea, Vomiting Or ondansetron (Zofran ODT) disintegrating tablet 4 mgJump to med 4 mg, Oral, EVERY 6 HOURS NEEDED, Starting on Sun06/13/24 at 1206, Until 06/14/24 at 1502, Nausea, Vomiting Group 4: prochlorperazine (Compazine) tablet 10 mgJump to med 10 mg, Oral, EVERY 6 HOURS NEEDED, Starting on Sun06/13/24 at 1206, Until 06/14/24 at 1502, Nausea, Vomiting Or prochlorperazine (COMPAZINE) injection 10 mgJump to med 10 mg, IV Push, EVERY 6 HOURS NEEDED, Starting on Sun06/13/24 at 1206, Until 06/14/24 at 1502, Nausea, Vomiting documented in this encounter Orders Medications Ordered That Vu ht Not Have Been Administered Count Last Ordered Date First Ordered Date albumin human 25% infusion ADS OVERRIDE 2 1 benzocaine-menthol 15-2.6 MG Lozenge 1 Lozenge 1 06/13/2024 bisacodyl (Dulcolax) suppository 10 mg 1 calcium carbonate (Tums) jr wable tablet 500-1,000 mg 1 06/13/2024 ceFAZolin (ANCEF) 2 g in dex trose 4% IVPB 100 mL 1 06/13/2024 citalopram (CeleXA) tablet 20 mg 1 06/13/20 24 diphenhydrAMINE (Benadryl) capsule 25 mg 1 06/13/2024 diphenhydrAMINE (Benadryl) c apsule 25-50 mg 1 06/13/2024 diphenhydrAMINE (Benadryl) injection 25 mg 1 06/13/2024 diphenhydrAMINE (Benadryl) i njection 25-50 mg 1 06/13/2024 droPERidol (Inapsine) injection 0.625 mg 1 06/13/2024 hydrALAZINE (Apresoline) injection 5 mg 1 1 hydrALAZINE (Apresoline) tablet 25 mg 1 07/2024 HYDROmorphone (Dilaudid) inj ection 0.25-0.5 mg 1 06/13/2024 HYDROmorphone (Dilaudid) injection 1 mg 1 1 lactated ringers BOLUS BAG 250 mL 1 024 lactated ringers infusion 1 06/13/2024 losartan (Cozaar) tablet 100 mg 1 magnesium hydroxide (Milk of Magnesia) 400 MG/5ML suspension 30 mL 1 06/13/2024 melatonin tablet 3 mg 1 06/13/2024 meperidine (Demerol) injection 12.5 mg 1 naloxone (Narcan) injection 0.1 mg 1 2023 naloxone (Narcan) injection 0.2 mg 1 2023 ondansetron (Zofran ODT) dis integrating tablet 4 mg 1 06/13/2024 ondansetron (Zofran) injection 4 mg 1 06/13 polyethylene glycol 3350 (Gl ycolax, Miralax) packet 17 g 1 06/13/2024 prochlorperazine (COMPAZINE) injection 10 mg 1 06/13/2024 prochlorperazine (Compazine) tablet 10 mg 1 06/13/2024 senna-docusate (Senokot-S) 8 .6-50 MG per tablet 1 Tablet 1 06/13/2024 sodium chloride 0.9% IV FLUS H (NS) SYRINGE 5 mL 1 06/13/2024 sodium phosphate (Fleet) 7-1 9 GM/118ML enema 1 Enema 1 06/13/2024 tranexamic acid (Cyklokapron ) 1000 mg in sodium chloride 0.7% 100 mL (premix) 2 06/13/2024 Admission Count Last Ordered Date First Orde red Date ASSIGN TO OUTPATIENT 1 06/13/2024 Discharge Count Last Ordered Date First Orde red Date DISCHARGE PATIENT 1 06/13/2024 Nursing Count Last Ordered Date First Orde red Date MISCELLANEOUS NURSING CARE ORDER (SPECIFY) 1 06/14/2024 ACTIVITY ORDER (SPECIFY) 5 06/13/2024 DISCHARGE DIET 1 06/13/2024 DISCHARGE INSTRUCTIONS 9 06/13/2024 FOLLOW UP 1 06/13/2024 NOTIFY PHYSICIAN (SPECIFY) 3 06/13/2024 POST OPERATIVE INSTRUCTIONS 2 06/13/2024 PROVIDE MEDICATION INSTRUCTIONS 6 RESTRICTIONS FOR PATIENT AFTER DISCHARGE 2 06/13/2024 WOUND CARE INSTRUCTIONS 3 06/13/2024 documented in this encounter Care Teams Spa Associate Relationship Specialty Start Date End Date Elsewhere, Pcp PCP - General 06/10/24 documented as of this encounter
--- OUTSIDE RECORDS SUMMARY | 2024-07-02 08:51 | XMS_ITS | Encounter Summary ---
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 Name Role Phone Elsewhere, Pcp Primary Care Provider Unavailabl e Reason for Visit * Reason Onset Date Comments Pre-Procedure Call 06/10/2024 * Auth/Cert (Routine) Specialty Diagnoses / Procedures Referred By Vickie zuniga Referred To Contact Diagnoses Degenerative joint disease of right hip M16.11 Procedures TOTAL HIP REPLACEMENT Right total hip arthroplasty direct anterior approach Kai Carrillo MD [facility] [address] [address] Phone: tel: fax: Referral ID Status Reason Start Date Expiration Date Visits Re quested Visits Authorized [id number] 1 1 Encounter Details Date Type Department Care Team (Late st Contact Info) Description 06/13/2024 5:52 AM CDT - 06/14/2024 10:45 AM CDT Hospital Encounter [address] [id number] Kai Carrillo MD [facility] [address] [address] Status post total replacement of right hip (Primary Dx) Discharge Disposition: Home and/or Self Care Social History Tobacco Use Types Packs/Day Years Used Date Smoking Tobacco: Never Passive Smoke Exposure: Past Smokeless Tobacco: Never Alcohol Use Standard Drinks/Week Comments Yes 0 (1 standard drink = 0.6 oz pur e alcohol) monthly [facility] Utilities Answer Date Recorded In the past 12 months has th e electric, gas, oil, or water company threatened to shut off services in your [...] any time in the past 12 m [facility], were you homeless or living in a longterm (including now)? No 06/13/2024 IP Custom IPV Answer Date Recorded Do you feel UNSAFE in any of your personal relationships with your family members or any other acquaintances? 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 Follow Up Instructions: Kai Carrillo MD [facility] \ [place] [address] [place] [address] Go on 07/02/2024 Post-op appointment scheduled with Dr. Carrillo on 07/02/24 at 2:00 PM at the [place] office Mesha Andino PA-C documented in this [...] not split or crush. 42 Tablet 06/13/2024 4 meloxicam (Mobic) 15 MG tablet Take 1 Tablet by mouth one time a day for 42 days. Take with food. 42 Tablet 06/13/2024 4 oxyCODONE (Roxicodone) 5 MG immediate release tabletIndication [...] Means Destination Comment s Home and/or Self Jail documented in this encounter Progress Notes * [...] 61-90 Moderate Dependence 91-99 Slight Dependence 100 [place] Diaz Score Prediction Less than 40 Unlikely to [...] cues and stand by assist. Patient and success coach were also educated on exit of [...] minutes with walker and icing every hour [id number] minutes during the day; HEP - 2x/day; [...] precautions following ARVIND. The patient and their success coach have been instructed on safe patient [...] Total Treatment Time: 18 minutes Therapeutic Activities (61698) = 10 minutes Gait Training (44505) = 8 minutes * Aracely Gomez PA-C [...] No Length of Stay Plan reviewed;Overnight stay Ux Consultant name & phone number Eloise Saleem [phone] Will your success coach be the one picking you up [...] Pre-op H&P date 05/19/24 Pre-op H&P location [facility] in [place] How many stairs to enter your home? [...] encounter Miscellaneous Notes * Care Plan - Laura Greer RN - 06/14/2024 9:55 AM CDT End [...] walker. Tolerating well. Worked with PT prior todischarge. Goals/Discharge Plan: AVS given and reviewed, Discharge [...] of Procedure: 06/13/2024 SURGEON KAI CARRILLO M.D. LABOR UNION BUSINESS REPRESENTATIVE Maria Del Carmen Morocho PA-C - Assisting PREOPERATIVE DIAGNOSIS Right hip osteoarthritis, failed to respond to conservative management. POSTOPERATIVE DIAGNOSIS Right hip osteoarthritis, failed to respond to conservative management. TITLE OF PROCEDURE Right total hip arthroplasty, Depuy uncemented components, direct anterior approach. Pieceable computerassisted fluoroscopic hip navigation. ANESTHESIA TYPE: General ESTIMATED BLOOD LOSS: 500 mL SPECIMEN(S) No Specimens Collected COMPLICATIONS: none IMPLANT(S): Implant Name Type Inv. Item Serial No. Solar Installer Lot No. LRB No. Used Action APEX HOLE ELIMINATOR PS - [id number] APEX HOLE ELIMINATOR PS NA DEPUY [id number] Right 1 Implanted CUP ACET 52MM PINNACLE SECTOR II - [id number] CUP ACET 52MM PINNACLE SECTOR II NA DEPUY [id number] Right 1 Implanted SCREW BONE PINNACLE CANCELLOUS 6.5X25MM - [id number] SCREW BONE PINNACLE CANCELLOUS 6.5X25MM NA DEPUY [id number] Right 1 Implanted LINER ACET ALTRX 36MM X 52MM NEUTRAL - [id number] LINER ACET ALTRX 36MM X 52MM NEUTRAL NA DEPUY [id number] Right 1 Implanted SCREW BONE CANCELLOUS 6.5MM X 35MM - [id number] SCREW BONE CANCELLOUS 6.5MM X 35MM NA DEPUY [id number] Right 1 Implanted STEM FEMORAL ACTIS DUOFIX SZ 3 - [id number] STEM FEMORAL ACTIS DUOFIX SZ 3 NA DEPUY [id number] Right 1Implanted HEAD FEMORAL BIOLOX DELTA SZ 36 +1.5MM - [id number] HEAD FEMORAL BIOLOX DELTA SZ 36 +1.5MM NA [id number] Right 1 Implanted PROCEDURE The patient was brought to the operating room and after satisfactory anesthesia was placed on the [place] table. The right lower extremity was then prepped and draped in the usual sterile fashion. Velyscomputer assisted fluoroscopic hip navigation was utilized during [...] aid of image intensification. A 52 mm Erin cup was impacted into place in approximately [...] and found to have good length and orthodox of offset. It was felt that an [...] gm of tranexamic acid pre-op. A skilled emergency medicine physician assistant was necessary for this procedure for assistance with patient positioning,prepping, draping, surgical visualization, performance of the repair, wound closure, and application of the dressing. * Rehab Evaluation - Gianluca Jana L, PT - 06/13/2024 2:40 PM CDT PHYSICAL THERAPY ACUTE CARE ORTHOPEDIC EVALUATION (HIP) Subjective Patient is a 63 y/o female who is s/p right ARVIND on 06/13/24- today. Pt is sitting in the recliner and is agreeable to participate with physical therapy. Pt's sister Eloise will be her success coach. Pt had her left hip replaced in March 2024 at [facility] Admission Diagnosis: Degenerative joint disease of [...] balance POD0. Therapeutic Activity: Skilled therapeutic education, anger control counselor and activity modification was providedto patient [...] concerns to note. [facility]. Barriers to Discharge [...] Time: 30 minutes Evaluation Moderate - Complexity (43866) Therapeutic Activities (33144) = 12 minutes Gait Training (47877) = 8 minutes * Brief Op Note - Kai Carrillo MD - 06/13/2024 10:53 AM CDT [facility] BRI[facility] OPERATIVE [facility] Pre-Op Diagnosis: Right hip degenerative joint disease M16.11, CPT: 66992 Post-Op Diagnosis: Same Procedure(s): Right direct anterior total hip arthroplasty Anesthesia Type: General Surgeons and Role: * Kai Carrillo MD - Primary * Maria Del Carmen Morocho PA-C - Assisting Estimated Blood Loss: 500 mL Specimen(s): No Specimens Collected Complications: None Implant(s): Implant Name Type Inv. Item Serial No. Solar Installer Lot No. LRB No. Used Action APEX HOLE ELIMINATOR PS - [id number] APEX HOLE ELIMINATOR PS NA DEPUY [id number] Right 1 Implanted CUP ACET 52MM PINNACLE SECTOR II - [id number] CUP ACET 52MM PINNACLE SECTOR II NA DEPUY [id number] Right 1 Implanted SCREW BONE PINNACLE CANCELLOUS 6.5X25MM - [id number] SCREW BONE PINNACLE CANCELLOUS 6.5X25MM NA DEPUY [id number] Right 1 Implanted LINER ACET ALTRX 36MM X 52MM NEUTRAL - [id number] LINER ACET ALTRX 36MM X 52MM NEUTRAL NA DEPUY [id number] Right 1 Implanted SCREW BONE CANCELLOUS 6.5MM X 35MM - [id number] SCREW BONE CANCELLOUS 6.5MM X 35MM NA DEPUY [id number] Right 1 Implanted STEM FEMORAL ACTIS DUOFIX SZ 3 - [id number] STEM FEMORAL ACTIS DUOFIX SZ 3 NA DEPUY [id number] Right 1Implanted HEAD FEMORAL BIOLOX DELTA SZ 36 +1.5MM - [id number] HEAD FEMORAL BIOLOX DELTA SZ 36 +1.5MM NA [id number] Right 1 Implanted Plan: DC home POD1 [...] on 07/02/24 at 2:00 PM at the [place] office Patient's goals after surgery: less pain Patient's concerns with upcoming surgery: none H&P Patient's pre-operative history and physical with their primary care physician was reviewed. From that, the following should be noted: -HTN, CAD, psoriatic arthritis (holding humira currently), untreated CADENCE (AHI 13 from 2016), GERD, anxiety -s/p LTHA 03/20/24 at [facility]. No complications per patient. Discharged POD [...] Prior to Admission Medications:*was not approved for Zepbound Patient will continue the following medications: atorvastatin, [...] time of discharge between 9:00AM-12:00PM with their milk delivery driver arriving by 8:00 AM Risk Control Consultant: Eloise saleem Discharge location: home Anticipated Home Health Services: None Ux Consultant/Family member available after discharge: Niece will stay with patient first 2 nights (was notpresent for this discussion) Post-operative medication plan and education was discussed Patient's medication dosing and sig for the above medications to be determined post-operatively. In the event of a concern arising after surgery, the patient was provided with the following information: During business hours, call surgeon's wound care coordinator, Marysol Ghotra at [phone]. After business hours, call the on-call provider at [phone]. [facility] was discussed. They [...] Assistive Devices Page 17/51 They understand their success coach should bring their assistive device to [...] is not an outpatient pharmacy at the [facility] and they will need to pickler helper their post-operative medications at a pharmacy of [...] of surgery after arriving at the [facility]. Avoiding a Delayed Surgery Page 10 I gave them this reference to use between now and surgery to avoid their surgery being delayed or cancelled. Adamaris Villa PA-C [facility] documented in this encounter Plan [...] - 16.0 g/dl 06/14/2024 7:31 AM CDT [facility] Blood BLOOD SPECIMEN / Unknown Venipuncture / Unknown 06/14/2024 7:17 AM CDT 06/14/2024 7:27 AM CDT Kai AGUILERA HEMATOLOGY ORDERABLES Final Result Performing Organization Address City/State/[facility] Co de Phone Number [address] [phone] * XR HIP RIGHT 2 OR 3 [...] MD Report Date: 06/13/2024 12:29 PM Kai AGUILERA DIAGNOSTIC IMAGING ORDERABL ES Final Result * [...] EC DIAGNOSTIC IMAGING ORDER IRWIN Final Result documented in this encounter Visit Diagnoses Diagnosis Status post total replacement of right hip- Primary Status post total replacement of right hip documented in this encounter Administered Medications [...] at 1206, Until Sun06/14/24 at 1502, Itching ethyl alcohol nasal 62 [...] 1206, Until 06/14/24 at 1502, Nausea, Vomiting sodium chloride 0.9% IV FLUSH (NS) SYRINGE 5 mL 5 mL, IV Flush, EVERY 8 HOURS, First dose on Sun06/13/24 at 1400, Until Discontinued Given 06/14/2024 5:32 AM CDT 5 m L Given 06/13/2024 11:13 PM CDT 5 mL Given 06/13/2024 1:19 PM CDT 5 mL documented in this encounter Discontinued Medications Medication [...] Discontinued 1317 (Given - Provider: Laura Greer RN)2048 (Given - Provider: Lucy Polk RN) 0816 (Given - Provider: Laura Greer RN) aspirin tablet 325 mg 325 mg, Oral, ONCE DAILY, First dose on Sun06/14/24 at 0900, Until Discontinued 08 (Given - Provid er: Laura Greer RN) [...] 0814 (Given - Provider: Klever Coleman APRN, CONDUCTOR/ENGINEER) ceFAZolin (ANCEF) 2 g in dextrose 4% IVPB 100 mL (COMPLETED) 2 g, Intravenous, at 200 mL/hr, *EVERY 8 HOURS, 2 doses, First dose on Sun06/13/24 at 1600, Last dose on Sun06/14/24 at 0000, Indication? surgical prophylaxis 1610 (New Bag - Provider: Laura Greer RN)1646 (Stopped - Provider: Laura Greer, ANUM)2313 (New Bag - Provider: Rachel Olmos RN)2343 [...] dose on Sun06/14/24 at 0800, Until Discontinued 818 (Not Given - Provider: Laura Greer RN - Reason: Order Parameters not met) metoprolol tartrate (Lopressor) tablet 25 mg 25 mg, Oral, 2 TIMES DAILY, First dose on Sun06/13/24 at 2000, Until Discontinued 2046 (Given - Provider: Lucy Polk RN) 0819 [...] RN)2313 (Given - Provider: Rachel Olmos RN) 0532 (Given - Provider: Rachel Olmos RN) [...] 0830 (Given - Provider: Klever Coleman APRN, CRNA) Continuous Medication Order 06/12/2024 06/13/2024 06/14/2024 lactated ringers infusion 10-50 mL/hr, Intravenous, CONTINUOUS, Starting on Sun06/13/24 at 0630, Until 06/14/24 at 1502 0702 (New Bag - Provider: Jo Currie RN)0813 (Paused - Provider: Klever Coleman APRN, CRNA - Comment: Switch to gravity)0814 (Restarted - Provider: Klever Coleman APRN, CRNA)1049 (Anesthesia Volume Adjusted - Provider: Klever Coleman APRN, CRNA) 1502 (Due: Stopped - Provider: Alejandrina Horan) [...] Pain (4-6) 1118 (Given - Provider: Tasha Keyes RN) hydrOXYzine (VISTARIL) injection 25 mg (CANCELED) 25 mg, Intramuscular, NEEDED, 2 doses, Starting on Sun06/13/24 at 1025, Until Sun06/13/24 at 1151, Other, augmented effects of narcotics muscle relaxant, anxiety, pruritus 1120 (Given - Provider: Tasha Keyes RN) hydrOXYzine pamoate (Vistaril) capsule 25 mg 25 [...] at 1206, Until 06/14/24 at 1502, Sleep 2046 (Given - Provider: Lucy Polk RN) naloxone (Narcan) injection 0.1 mg 0.1 mg, IV Push, EVERY 3 MINUTES NEEDED, Starting on Sun06/13/24 at 1206, Until 06/14/24 at 1502, Respiratory Depression, Other, VASCULAR SONOGRAPHER depression ondansetron (Zofran ODT) disintegrating tablet 4 [...] 1502, Moderate Pain (4-6), Severe Pain (7-10) 170 (Given - Provider: Laura Greer RN)2046 (Given - Provider: Lucy Polk RN) 0537 [...] prochlorperazine (Compazine) tablet 10 mg 1 06/13/2024 ROPivacaine (Naropin) 300 mg , EPINEPHrine (Adrenalin) 0.6 mg, ketorolac (TORADOL) 15 mg in sodium chloride 0.9% (NS) 38.4 mL solution 1 06/13/2024 senna-docusate (Senokot-S) 8 .6-50 MG per tablet 1 Tablet 1 06/13/2024 sodium chloride 0.9% IV FLUS H (NS) SYRINGE 5 mL 1 06/13/2024 sodium phosphate (Fleet) 7-1 9 GM/118ML enema 1 Enema 1 06/13/2024 tranexamic acid (Cyklokapron ) 1000 mg in sodium chloride 0.7% 100 mL (premix) 2 06/13/2024 vancomycin (Vancocin) injection 1 4 Admission Count Last Ordered Date First Orde [...] 06/13/2024 documented in this encounter Care Teams Waterworks 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
--- OUTSIDE RECORDS SUMMARY | 2024-07-02 08:51 | XMS_ITS | Encounter Summary ---
Author Organization [facility] Address [address] [address] Phone Care Team Providers Care Section Crews Activities Clerk Name Role Phone Elsewhere, Pcp Primary Care Provider Unavailabl e Encounter Details Date Type Department Care Team (Late st Contact Info) Description 06/13/2024 6:30 AM CDT Ancillary Procedure [facility] [address] [place] [address] Social History Tobacco Use Types Packs/Day Years Used Date Smoking Tobacco: Never Passive Smoke Exposure: Past Smokeless Tobacco: Never Alcohol Use Standard Drinks/Week Comments Yes 0 (1 standard drink = 0.6 oz pur e alcohol) monthly [facility] Utilities Answer Date Recorded In the past [...] any time in the past 12 m [facility], were you homeless or living in a [place] health care facility (including now)? No 06/13/2024 EH IP Custom IPV Answer Date Recorded Do you feel UNSAFE in any of your personal relationships with your family members or any other acquaintances? 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 Gender Identity Female 06/11/2024 11:55 AM CDT Sexual Orientation Straight 06/11/2024 11 :55 AM CDT documented as of this encounter Functional Status * Patient's Vision [...] Laura Greer RN documented in this encounter Plan of Treatment Not on file documented as of this encounter Procedures Procedure Name Priority Date/Time Associated Diagnosis Comments XR C ARM FLUORO Routine 06/13/2024 10:19 AM CDT documented in this encounter Results * XR C ARM FLUORO (06/13/2024 10:19 [...] Arroyo MD Report Date: 06/13/2024 10:41 AM us Adamaris Villa PA-C [facility] DIAGNOSTIC IMAGING ORDER IRWIN Final Result documented in this encounter Visit Diagnoses Not on filedocumented in this encounter Care Teams Section Crews Activities Clerk Relationship Specialty Start Date End Date Elsewhere, Pcp PCP - General 06/10/24 documented as of this encounter
--- OUTSIDE RECORDS SUMMARY | 2024-07-02 08:51 | XMS_ITS | Encounter Summary ---
Author Organization [facility] Address [address] [address] Phone Care Team Providers Care Sprinkler Fitter Apprentice Name Role Phone Elsewhere, Pcp Primary Care Provider Unavailabl e Reason for Visit * Auth/Cert (Routine) Specialty Diagnoses / Procedures Referred By Vickie zuniga Referred To Contact Diagnoses Degenerative joint disease of right hip M16.11 Procedures TOTAL HIP REPLACEMENT Right total hip arthroplasty direct anterior approach Kong Alvares MD [facility] [address] [address] Phone: tel: fax: Referral ID Status Reason Start Date Expiration Date Visits Re quested Visits Authorized [id number] 1 1 Encounter Details Date Type Department Care Team (Late st Contact Info) Description 06/13/2024 8:14 AM CDT Anesthesia Event [facility] OR [address] [place] [phone] Scotty Bryan MD [address] [address] Akin Chase MD [address] [id number] Anesthesia Record Procedure Summary Procedure Name Responsible Anesthesiologist Anesthesia Start Time Anesthesia Stop Time Right total hip arthroplasty direct anterior approach (Right: Hip) Scotty Bryan MD 06/13/24 0814 06/13/24 1055 Events Date Time Event Comment 06/13/2024 0711 AN Equip Check 0726 0728 SAFETY TRAINER Ready 0814 An Start The patient was reevaluated immediately prior to initiation of anesthesia. 0814 An Start Data 0818 An Induction 0821 An Intubation 0825 Anesthesia Ready 0902 Quick Note start 1047 Emergence Started 1048 An Extubation 1048 Start Supplemental O2 1049 an stop data 1052 Intraop Signature Intraop erative Record electronically signed by Klever Coleman APRN, SAFETY TRAINER 1055 An Stop Report given to the receiving RN. No apparent anesthesia complications at this time. Electronically signed by Klever Coleman APRN, SAFETY TRAINER 1055 Intraop Signature Intraop erative Record electronically signed by Scotty Bryan MD Meds Name Total propofol 20 mL VIAL 10 mg/mL (Diprivan) infusion 200 mg fentaNYL (Sublimaze) injection 0.05 mg/m L 100 mcg ondansetron (Zofran) injection 2 mg/mL 4 mg midazolam (Versed) injection 1 mg/mL 2 m g rocuronium (Zemuron) injection 10 mg/mL 80 mg phenylephrine (Biorphen) injection 0.1 m g/mL syringe 500 mcg sugammadex (Bridion) 100 mg/mL injection 200 mg dexamethasone (Decadron) injection 4 mg/ mL 10 mg ketamine (Ketalar) injection 10 mg/mL 20 mg ePHEDrine injection 50 mg/mL 35 mg lidocaine (Xylocaine) preservative free 2% injection 50 mg tranexamic acid (Cyklokapron ) 1000 mg in sodium chloride 0.7% 100 mL (premix) 1,000 mg tranexamic acid (Cyklokapron ) 1000 mg in sodium chloride 0.7% 100 mL (premix) 1,000 mg ceFAZolin (ANCEF) 2 g in dextrose 4% IVP B 100 mL 2,000 mg HYDROmorphone (Dilaudid) injection 1 mg/ mL 0.5 mg ketorolac (Toradol) injection 30 mg/mL 1 5 mg lactated ringers infusion 900 mL albumin human 5% infusion 750 mL * Agents Name O2 N2O Air Sevoflurane Inspired Sevoflurane * Blood No blood administrations on file. Lines, Drains, and Airways Type Details Placement Removal Wound 06/13/24; 901; Inci diann; N; 1; Anterior, Right; Hip 06/13/24 09 by Nini Foley RN Peripheral IV 06/13/24; 0658; No; 20; Posterior, Right; Hand; ChloraPrep; Anatomical landmarks; None; None; Calm, Cooperative, Tolerated Well; Catheter Intact, No Complications 06/13/24 0658 by Jo Currie RN 06/14/24 1015 by Laura Greer RN ETT 06/13/24; 08 (anna majano via procedure documentation); Ventilated by mask (1); Video laryngoscopy; ETT; 7; ([facility]); 3; 2a; 1; 22 cm 06/13/24 08 by Klever Coleman APRN, CRNA 06/13/24 1048 by Klever Coleman APRN, CRNA documented in this encounter Social History Tobacco Use Types Packs/Day Years Used Date Smoking Tobacco: Never Passive Smoke Exposure: Past Smokeless Tobacco: Never Alcohol Use Standard Drinks/Week Comments Yes 0 (1 standard drink = 0.6 oz pur e alcohol) monthly [facility] Utilities Answer Date Recorded In the past 12 months has th e eyetok, gas, oil, or water [employer] threatened to shut off services in your [...] any time in the [facility], were you homeless or living in a care home (including now)? No 06/13/2024 EH IP Custom IPV Answer Date Recorded Do you feel UNSAFE in any of your personal relationships with your family members or any other acquaintances? 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 Gender Identity Female 06/11/2024 11:55 AM CDT Sexual Orientation Straight 06/11/2024 11 :55 AM CDT documented as of this encounter Mental Status * Patient's Judgment Adequate to Safely Complete Daily Activities Answer Entry Date Author Yes 06/13/2024 12:07 PM CDT Laura Greer RN documented in this encounter OR Notes * Anesthesia Postprocedure Evaluation - Scotty Bryan MD - 06/13/2024 1:12 PM CDT Procedure Summary Date: 06/13/24 Room / Location: [facility] OR [address] [place] [address] OR Anesthesia Start: 813 Anesthesia Stop: 1054 Procedure: Right total hip arthroplasty direct anterior approach (Right: Hip) Diagnosis: (Degenerative joint disease of right hip M16.11) Surgeons: Kong Alvares MD Responsible Provider: Scotty Bryan MD Anesthesia Type: general ASA Status: 3 Anesthesia Type: general Vitals Value Taken Time BP 129/72 06/13/24 1150 Temp 36.7 ??C (98.1 ??F) 06/13/24 1054 Pulse 87 06/13/24 1151 Resp 12 06/13/24 1145 SpO2 90 % 06/13/24 1151 Vitals shown include unfiled device data. Patient Post-op disposition: inpatient floor planned admission Patient participation: patient able to participate Level of consciousness: awake and alert Pain score: 3 Pain management: adequate Kareem score:11 Airway patency: patent Cardiovascular status: acceptable Respiratory status: acceptable Hydration status: no apparent hydration abnormalities No PONVDental findings: dentition unchanged No notable events documented. * Anesthesia Procedure Notes - Klever Coleman APRN, CRNA - 06/13/2024 8:33 AM CDTAssociated Order(s): Airway Airway Date/Time: 06/13/2024 8:33 AM Urgency: elective Airway not difficult General Information and Staff Patient location during procedure: OR Performed by: Klever Coleman APRN, CRNA Authorized by: Scotty Bryan MD Indications and Patient Condition Indications for airway [...] of other approaches attempted: 0 dentition unchanged * Anesthesia Preprocedure Evaluation - Scotty Bryan MD - 06/13/2024 7:13 AM CDT Anesthesia Evaluation negative anesthesia history Pulmonary - normal exam (+) sleep apnea Obstructive Sleep Apnea total score: 3 Cardiovascular - normal exam (+) CAD (NSTEMI, small vessel culprit, no stent, asympt since) Neuro/Psych - negative ROS GI/Hepatic/Renal (+) GERD Endo (+) arthritis Other BMI Classification: obese (BMI 30-39.9) Past Medical History: Diagnosis Date 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 06/12/2024 at 2100 citalopram (CeleXA) 20 MG tablet Take 20 mg by mouth one time a day. 06/12/2024 at 0900 losartan (Cozaar) 100 MG tablet Take 100 mg by mouth one time a day. 06/12/2024 at 0900 metoprolol tartrate (Lopressor) 25 MG tablet Take 25 mg by mouth two times a day. 06/13/2024 at 0445 omeprazole (PriLOSEC) 20 MG delayed-release capsule Take 20 mg by mouth one time a day. 06/13/2024 at 0445 aspirin EC 81 MG tablet Take 81 mg by mouth one time a day. 06/05/2024 Multiple Vitamin (Daily Vites) Tablet tablet Take 1 Tablet by mouth one time a day. 06/05/2024 Vitals: 06/10/24 1200 06/11/24 1158 06/13/24 0625 06/13/24 0705 BP: 138/84 BP Location: Left arm BP Patient Position: Semi-Fowlers Pulse: 58 Resp: 16 Temp: 36.6 ??C (97.9 ??F) TempSrc: Temporal SpO2: 95% Weight: 86.2 kg (190 lb) 87.7 kg (193 lb 6.4 oz) Height: 1.6 m (5' 3) 1.6 m (5' 3) 1.6 m (5' 3) Body mass index is 34.26 kg/m??. No visits with results within 1 Month(s) from this visit. Latest known visit with results is: Appointment on 08/28/2012 Component Date Value Ref Range Status SOURCE 08/28/2012 Vaginal Final Chlamydia trachomatis 08/28/2012 Negative by DNA Final Neisseria gonorrhoeae 08/28/2012 Negative by DNA Final Lab normal BMI 34 All allergies reviewed. Physical Exam Airway Mallampati: III Cardiovascular - normal exam Dental - normal exam Pulmonary - normal exam Anesthesia Plan ASA 3 Plan: general Technique: general endotracheal Planned airway:video laryngoscope Anesthetic plan and risks discussed and informed consent obtained from: patient and adult children. PONV Plan PONV risk factors: female and non-smoker Calculated risk score: 2 Prevention/prophylaxis plan: Zofran and Decadron Patient is not DNR; Patient is not DNI; documented in this encounter Plan of Treatment Not on file documented as of this encounter Procedures Procedure Name Priority Date/Time Associated Diagnosis Comments ANE INTUBATION 06/13/2024 8:33 AM CDT documented in this encounter Results * ANE ETT AIRWAY (06/13/2024 8:33 AM [...] Successful intubation technique: video laryngoscopy Blade type: ToonTime. Blade size: #3 ETT size (mm): 7.0 Cormack-Lehane Classification: grade IIa - partial view of glottis Placement verified by: chest auscultation and capnometry Measured from: gums ETT to gums (cm): 22 Number of attempts at approach: 1 Number of other approaches attempted: 0 dentition unchanged Scotty Bryan MD PROCEDURE/MINOR HOME ORDERABL ES Final Result documented in this encounter Visit Diagnoses Not on filedocumented in this encounter Administered Medications Inactive Administered Medications Medication Order MAR Action Action Date Dose Rate Site albumin human 5% infusion Intravenous, CONTINUOUS INTRA-OP, Starting on Sun06/13/24 at 0930, Until Sun06/13/24 at 1055 New Bag 06/13/2024 10:30 AM CDT New Bag 06/13/2024 9:30 AM CDT ceFAZolin (ANCEF) 2 g in dextrose 4% IVPB 100 mL 2,000 mg, Intravenous, at 200 mL/hr, ONCE, 1 dose, On Sun06/13/24 at 0630, Indication? surgical prophylaxis Given 06/13/2024 8:14 AM CDT 2,000 mg dexAMETHasone (Decadron) injection IV Push, NEEDED, Starting on Sun06/13/24 at 0830, Until Sun06/13/24 at 1055 Given 06/13/2024 8:30 AM CDT 10 mg ePHEDrine sulfate injection IV Push, NEEDED, Starting on Sun06/13/24 at 0829, Until Sun06/13/24 at 1055 Given 06/13/2024 10:28 AM CDT 5 mg Given 06/13/2024 10:12 AM CDT 5 mg Given 06/13/2024 10:00 AM CDT 5 mg Given 06/13/2024 9:35 AM CDT 5 mg Given 06/13/2024 8:43 AM CDT 5 mg Given 06/13/2024 8:29 AM CDT 5 mg Given 06/13/2024 8:26 AM CDT 5 mg fentaNYL (Sublimaze) injection IV Push, NEEDED, Starting on Sun06/13/24 at 0818, Until Sun06/13/24 at 1055 Given 06/13/2024 8:18 AM CDT 100 mcg HYDROmorphone (Dilaudid) injection IV Push, NEEDED, Starting on Sun06/13/24 at 0925, Until Sun06/13/24 at 1055 Given 06/13/2024 9:25 AM CDT 0.5 mg ketamine (Ketalar) 10 MG/ML injection IV Push, NEEDED, Starting on Sun06/13/24 at 0900, Until Sun06/13/24 at 1055 Given 06/13/2024 9:03 AM CDT 10 mg Given 06/13/2024 9:00 AM CDT 10 mg ketorolac (Toradol) injection IV Push, NEEDED, Starting on Sun06/13/24 at 1016, Until Sun06/13/24 at 1055 Given 06/13/2024 10:16 AM CDT 15 mg lactated ringers infusion 10-50 mL/hr, Intravenous, CONTINUOUS, Starting on Sun06/13/24 at 0630, Until Sun06/14/24 at 1502 Restarted 06/13/2024 8:14 AM CDT New Bag 06/13/2024 7:02 AM CDT 20 mL/hr 20 mL/hr lidocaine 2% PF (Xylocaine) injection IV Push, NEEDED, Starting on Sun06/13/24 at 0818, Until Sun06/13/24 at 1055 Given 06/13/2024 8:18 AM CDT 50 mg midazolam (Versed) injection IV Push, NEEDED, Starting on Sun06/13/24 at 0814, Until Sun06/13/24 at 1055 Given 06/13/2024 8:14 AM CDT 2 mg ondansetron (Zofran) injection IV Push, NEEDED, Starting on Sun06/13/24 at 1016, Until Sun06/13/24 at 1055 Given 06/13/2024 10:16 AM CDT 4 mg phenylephrine (Biorphen) 0.5 MG/5ML injection IV Push, NEEDED, Starting on Sun06/13/24 at 0826, Until Sun06/13/24 at 1055 Given 06/13/2024 9:58 AM CDT 100 mcg Given 06/13/2024 9:35 AM CDT 100 mcg Given 06/13/2024 9:00 AM CDT 100 mcg Given 06/13/2024 8:43 AM CDT 100 mcg Given 06/13/2024 8:26 AM CDT 100 mcg propofol (Diprivan) 200 MG/20ML injection Intravenous, NEEDED, Starting on Sun06/13/24 at 0819, Until Sun06/13/24 at 1055 Given 06/13/2024 8:19 AM CDT 200 mg rocuronium (Zemuron) injection IV Push, NEEDED, Starting on Sun06/13/24 at 0819, Until Sun06/13/24 at 1055 Given 06/13/2024 9:25 AM CDT 10 mg Given 06/13/2024 9:08 AM CDT 20 mg Given 06/13/2024 8:19 AM CDT 50 mg sugammadex sodium (Bridion) injection IV Push, NEEDED, Starting on Sun06/13/24 at 1034, Until Sun06/13/24 at 1055 Given 06/13/2024 10:34 AM CDT 200 mg tranexamic acid (Cyklokapron) 1000 mg in sodium chloride 0.7% 100 mL (premix) 1,000 mg, Intravenous, at 200 mL/hr, ONCE, 1 dose, On Sun06/13/24 at 0630 Given 06/13/2024 10:29 AM CDT 1,000 mg tranexamic acid (Cyklokapron) 1000 mg in sodium chloride 0.7% 100 mL (premix) 1,000 mg, Intravenous, at 200 mL/hr, ONCE, 1 dose, On Sun06/13/24 at 0630 Given 06/13/2024 8:30 AM CDT 1,000 mg documented in this encounter Care Teams Sprinkler Fitter Apprentice Relationship Specialty Start Date End Date Elsewhere, Pcp PCP - General 06/10/24 documented as of this encounter
--- OUTSIDE RECORDS SUMMARY | 2024-07-02 08:51 | XMS_ITS | Encounter Summary ---
Author Organization [facility] Address [address] [address] Phone Care Team Providers Care Hide Or Skin Buffer Name Role Phone Elsewhere, Pcp Primary Care Provider Unavailabl e Encounter Details Date Type Department Care Team (Latest Contact Info) Description 06/11/2024 Travel Social History Tobacco Use Types Packs/Day Years Used Date Smoking Tobacco: Never Passive Smoke Exposure: Past Smokeless Tobacco: Never Alcohol Use Standard Drinks/Week Comments Yes 0 (1 standard drink = 0.6 oz pur e alcohol) monthly IP Custom IPV Answer Date Recorded Do you feel UNSAFE in any of your personal relationships with your family members or any other acquaintances? 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
--- OUTSIDE RECORDS SUMMARY | 2024-07-02 08:51 | XMS_ITS | Encounter Summary ---
Author Organization [facility] Address [address] [address] Phone Care Team Providers Care Direct Support Professional Caregiver Name Role Phone Elsewhere, Pcp Primary Care Provider Unavailabl e Encounter Details Date Type Department Care Team (Latest Contact Info) Description 06/13/2024 Travel Social History Tobacco Use Types Packs/Day Years Used Date Smoking Tobacco: Never Passive Smoke Exposure: Past Smokeless Tobacco: Never Alcohol Use Standard Drinks/Week Comments Yes 0 (1 standard drink = 0.6 oz pur e alcohol) monthly [facility] Utilities Answer Date Recorded In the [...] any time in the past 12 m [facility], were you homeless or living in a long-term (including now)? No 06/13/2024 EH IP Custom IPV Answer Date Recorded Do you feel UNSAFE in any of your personal relationships with your family members or any other acquaintances? 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 Gender Identity Female 06/11/2024 11:55 AM CDT Sexual Orientation Straight 06/11/2024 11 :55 AM CDT documented as of this encounter Functional Status * Patient's Vision Adequate to Safely Complete Daily Activities Answer Date of Assessment Author Yes 06/13/2024 12:07 PM CDT Laura Greer RN * Patient's Memory Adequate to Safely Complete Daily Activities Answer Date of Assessment Author Yes 06/13/2024 12:07 PM MEGANT Laura Greer RN documented as of this encounter Mental Status * Patient's Judgment Adequate to Safely Complete Daily Activities Answer Entry Date Author Yes 06/13/2024 12:07 PM Laura Vasquez RN documented in this encounter Plan of Treatment Not on file documented as of this encounter Visit Diagnoses Not on filedocumented in this encounter Care Teams Direct Support Professional Caregiver Relationship Specialty Start Date End Date Elsewhere, Pcp PCP - General 06/10/24 documented as of this encounter
--- OUTSIDE RECORDS SUMMARY | 2024-07-02 08:51 | XMS_ITS | Referral Summary ---
Author Organization 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 Answer Date of Assessment Author No 01/17/2018 8:00 AM CDT Dorie Vallecillo * Vision Problems? Answer Date of Assessment Author No 01/17/2018 8:00 AM CDT Dorie Vallecillo * Difficulty walking? Answer Date of Assessment Author No 01/17/2018 8:00 AM CDT Dorie Vallecillo * Difficulty dressing or bathing? Answer Date of Assessment Author No 01/17/2018 8:00 AM CDT Dorie Vallecillo * Problems with daily activities? Answer Date of Assessment Author No 01/17/2018 8:00 AM CDT Dorie Vallecillo Mental Status * Memory Problems? Answer Entry Date Author No 01/17/2018 8:00 AM CDT Dorie Vallecillo Plan of Treatment Not on file Procedures Procedure Name Priority Date/Time Associated Diagnosis Comments RANDA SCREEN MAMMOGRAM, DIGITAL ([id number]) Routine 01/31/2018 5:10 PM CDT Encounter for screening mammogram for malignant neoplasm of breast from Last 3 Months or Most Recently Relevant to Health Maintenance Results * RANDA SCREEN MAMMOGRAM, DIGITAL ([id number]) (01/31/2018 5:10 PM CDT) Anatomical Region Laterality Modality Breast Bilateral Mammography 02/01/2018 3:21 PM CDT Narrative 02/01/2018 3:24 PM CDT DATE OF SERVICE: 01.31.2018 BILATERAL SCREENING MAMMOGRAM WITH CAD WITH TOMOSYNTHESIS CLINICAL INDICATION: ??Screening mammogram. AGE: 57 years. COMPARISON: ??2016, 2016, 2014, 2013, 2012 TECHNIQUE: ?? Bilateral screening digital mammographic views with tomosynthesis. Images were checked with the [employer] CAD system. FINDINGS: The breasts are heterogeneously [...] Most Recently Relevant to Health Maintenance Insurance [employer] (Work) [address] [phone] (Work) [address] [id number] (Work) [address] [phone] Care Teams Medication Reconciliation Technician Relationship Specialty Start Date End Date Mildred Drake MD [address] [place] [address] PCP - General Family Practice 10/08/12
--- OUTSIDE RECORDS SUMMARY | 2024-07-02 08:51 | XMS_ITS | Encounter Summary ---
Author Organization [facility] Address [address] [address] Phone Care Team Providers Care Electrical Logging Engineer Name Role Phone Elsewhere, Pcp Primary Care Provider Unavailabl e Encounter Details Date Type Department Care Team (Late st Contact Info) Description 06/13/2024 11:05 AM CDT Ancillary Procedure [facility] [address] [place] [address] Social History Tobacco Use Types Packs/Day Years Used Date Smoking Tobacco: Never Passive Smoke Exposure: Past Smokeless Tobacco: Never Alcohol Use Standard Drinks/Week Comments Yes 0 (1 standard drink = 0.6 oz pur e alcohol) monthly [facility] Utilities Answer Date Recorded In the [...] any time in the past 12 m [facility], were you homeless or living in a fci (including now)? No 06/13/2024 EH IP Custom IPV Answer Date Recorded Do you feel UNSAFE in any of your personal relationships with your family members or any other acquaintances? 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 Gender Identity Female 06/11/2024 11:55 AM CDT [...] Name Priority Date/Time Associated Diagnosis Comments XR HIP RIGHT 2 OR 3 VIEWS W PELVIS Routine 06/13/2024 11:15 AM CDT Status post total replacement of right hip documented in this encounter Results * XR HIP RIGHT 2 OR 3 [...] Arroyo MD Report Date: 06/13/2024 12:29 PM us Kong Alvares MD [facility] ORDERABL ES Final Result documented in this encounter Visit Diagnoses Not on filedocumented in this encounter Care Teams Electrical Logging Engineer Relationship Specialty Start Date End Date Elsewhere, Pcp PCP - General 06/10/24 documented as of this encounter
--- OUTSIDE RECORDS SUMMARY | 2024-07-02 08:52 | XMS_ITS | Encounter Summary ---
Author Organization [place] Address [facility] [facility] 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 Gender Identity Female 04/22/2020 2:54 PM CDT [...] on filedocumented in this encounter Care Teams Net Developer Software Engineer C Relationship Specialty Start Date End Date Yamila Dave PA-C [facility] [address] [address] PCP - General Physician Educational Diagnostician 04/14/20 Alo Steel PA-C [address] [place], [place] [address] Assigned Heart and Vascular Provider 11/17/20 01/22/21 Rahul Ford MD [address] [place] [address] Assigned Heart and Vascular Provider 01/23/21 03/02/23 Chadwick Jensen NP [address] [place] [address] Nurse Practitioner Cardiovascular Disease 11/15/22 Chadwick Jensen NP [address] [place] [address] Assigned Heart and Vascular Provider 03/03/23 08/17/23 Chadwick Jensen NP [address] [place] [address] Assigned Heart and Vascular Provider 08/25/23 02/23/24 Rahul Ford MD Assigned Heart and Vascular Provider 08/18/23 08/24/23 Rahul Ford MD MD Cardiovascular Disease 01/24/24 Rahul Ford MD Assigned Heart and Vascular Provider 02/24/24 documented as of this encounter
--- OUTSIDE RECORDS SUMMARY | 2024-07-02 08:52 | XMS_ITS | Encounter Summary ---
Author Organization [place] Address [address] [place] [address] Care Team Providers Care Bond Broker Name Role Phone Yamila Dave PA-C Primary Care Provider Chadwick Jensen NP Unavailable [phone] Rahul Ford MD Unavailable Un available Rahul Ford MD Unavailable Un available Reason for Visit * Reason Comments Advance Care Planning Encounter Details Date Type Department Care Team (Latest Contact Info) Description 04/04/2024 Documentation Only [facility] [address] [facility] [address] [place] [address] Susan Luo Advance Care Planning Social History Tobacco Use Types Packs/Day Years Used Date Smoking Tobacco: Never Smokeless Tobacco: Never Alcohol Use Standard Drinks/Week Comments Yes 0 (1 standard drink = 0.6 oz pur e alcohol) rare occasion PHQ-2 Answer Date Recorded PHQ-2 Score 0 01/30/2024 Adolescent Education Answer Date Record ed Getting School Help Needed Not on file 05/26 Comments No Sex and Gender Information Value Date Recorded Sex Assigned at Female 04/22/2020 2:54 PM CDT 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 [address] [place] [address] PCP - General Physician Historic Sites Supervisor 04/14/20 Chadwick Jensen NP [address] [place] [address] Nurse Practitioner Cardiovascular Disease 11/15/22 Rahul Ford MD MD Cardiovascular Disease 01/24/24 Rahul Ford MD Assigned Heart and Vascular Provider 02/24/24 documented as of this encounter
--- OUTSIDE RECORDS SUMMARY | 2024-07-02 08:52 | XMS_ITS | Encounter Summary ---
Author Organization [place] Address [address] [facility] [place] [address] Care Team Providers Care Tour Consultant Name Role Phone Yamila Dave PA-C Primary Care Provider Rahul Ford MD Unavailable Un available Steel, Tressakalina Graves PA-C Unavailable [phone] Rahul Ford MD Unavailable Un available Chadwick Jensen MILLER HELPER DISTILLERY Unavailable [phone] Chadwick Jensen MILLER HELPER DISTILLERY Unavailable [phone] Chadwick Jensen MILLER HELPER DISTILLERY Unavailable [phone] Rahul Ford MD Unavailable Un available Rahul Ford MD Unavailable Un available Rahul Ford MD Unavailable Un available Encounter Details Date Type Department Care Team (Late st Contact Info) Description 09/23/2020 [facility] Medical Advice [facility] [place] [address] [place] [address] [address] [place] [address] Rahul Ford MD Social History Tobacco Use Types Packs/Day Years Used Date Smoking Tobacco: Never Smokeless Tobacco: Never Alcohol Use Standard Drinks/Week Comments Yes 0 (1 standard drink = 0.6 oz pur e alcohol) rare occasion Comments Unknown Sex and Gender Information Value Date Recorded Sex Assigned at Female 04/22/2020 2:54 PM CDT 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 No / Unsure 09/20/2020 7:44 AM MAINTENANCE AIDE documented as of this encounter Plan of Treatment Not on file documented as of this encounter Visit Diagnoses Not on filedocumented in this encounter Care Teams Tour Consultant Relationship Specialty Start Date End Date Yamila Dave PA-C [facility] [address] [place] [address] PCP - General Physician Catalyst Operator 04/14/20 Rahul Ford MD Assigned Heart and Vascular Provider 06/25/20 11/16/20 Aol Steel PA-C [address] [address] Assigned Heart and Vascular Provider 11/17/20 01/22/21 Rahul Ford MD [address] [address] Assigned Heart and Vascular Provider 01/23/21 03/02/23 Chadwick Jensen NP [address] [address] Nurse Practitioner Cardiovascular Disease 11/15/22 Chadwick Jensen NP [address] [address] Assigned Heart and Vascular Provider 03/03/23 08/17/23 Chadwick Jensen NP [address] [address] Assigned Heart and Vascular Provider 08/25/23 02/23/24 Rahul Ford MD Assigned Heart and Vascular Provider 08/18/23 08/24/23 Rahul Ford MD MD Cardiovascular Disease 01/24/24 Rahul Ford MD Assigned Heart and Vascular Provider 02/24/24 documented as of this encounter
--- OUTSIDE RECORDS SUMMARY | 2024-07-02 08:52 | XMS_ITS | Clinical Summary ---
Author Organization [facility] Address [place], [place] [address] Care Team Providers Care Lead Cargoman Name Role Phone Yamila Dave PA-C Primary Care Provider [phone] Allergies Active Allergy Reactions Criticality Noted Date [...] 16 Negative Negative 06/21/2022 9:30 AM CDT [facility] TRAL [facility]AT[facility] TYPE 18 Negative Negative 06/21/2022 9:30 AM CDT [facility] TRAL LAB[facility] OTHER HIGH RISK TYPES Negative Negative 06/21/2022 9:30 AM CDT [facility] TRA LABORAT[facility] Other (Cervical/Vagina l) 06/15/2022 9:45 AM CDT 06/16/2022 8:28 AM CDT Narrative [facility] - 06/21/2022 9:30 AM CDT HPV types 16, 18, 31, 33, 35, 39, 45, 51, 52, 56, 58, 59, 66 and 68 DNA were undetectable or below the pre-set threshold. Methodology: Jamie Cristina 4800 HPV Test Yamila Dave PA-C MICROBIOLOGY [facility] [address] [place] [address], from Last 3 Months or Most Recently Relevant to Health Maintenance Advance Directives * Full Code (Latest Code Status on File) Date Activated Date Inactivated Comments 11/19/2020 5:56 AM 11/19/2020 1:25 PM Question Answer Comments Code Status Discussion: Not Discussed Care Teams Lead Cargoman Relationship Specialty Start Date End Date Yamila Dave PA-C [address] [place] [address] PCP - General Emergency Medicine 11/05/20
--- OUTSIDE RECORDS SUMMARY | 2024-07-02 08:52 | XMS_ITS | Encounter Summary ---
Author Organization [place] Address [address] [facility] 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 Gender Identity Female 04/22/2020 2:54 PM CDT Sexual Orientation Straight 04/22/2020 2: 54 PM CDT documented as of this encounter Plan of Treatment Not on file documented as of this encounter Visit Diagnoses Not on filedocumented in this encounter Care Teams Director Of Group Sales Relationship Specialty Start Date End Date Yamila Dave PA-C [facility] [address] [place] [address] PCP - General Physician Beaver Trapper 04/14/20 Chadwick Jensen NP [address] [address] Nurse Practitioner Cardiovascular Disease 11/15/22 Chadwick Jensen NP [address] [address] Assigned Heart and Vascular Provider 08/25/23 02/23/24 Rahul Ford MD Cardiovascular Disease 01/24/24 Rahul Ford MD Assigned Heart and Vascular Provider 02/24/24 documented as of this encounter
--- OUTSIDE RECORDS SUMMARY | 2024-07-02 08:52 | XMS_ITS | Encounter Summary ---
Author Organization [place] Address [address] [facility] [place] [address] Care Team Providers Care Chief Scientific Officer Name Role Phone Yamila Dave PA-C Primary Care Provider Rahul Ford MD Unavailable Un available Chadwick Jensen NP Unavailable [phone] Chadwick Jensen NP Unavailable [phone] Chadwick Jensen NP Unavailable [phone] Rahul Ford MD Unavailable Un available Rahul Ford MD Unavailable Un available Rahlu Ford MD Unavailable Un available Encounter Details Date Type Department Care Team (Late st Contact Info) Description 04/19/2022 External Order Results [facility] [address] [place] [address] Outside, Provider Social History Tobacco Use Types Packs/Day Years Used Date Smoking Tobacco: Never Smokeless Tobacco: Never Alcohol Use Standard Drinks/Week Comments Yes 0 (1 standard drink = 0.6 oz pur e alcohol) rare occasion Comments No Sex and Gender Information Value Date Recorded Sex Assigned at Female 04/22/2020 2:54 PM CDT 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 us Provider Outside LAB - BLOOD ORDERABLES Edited R esult - Final ABELARDO PFT NON-INTERFACED (ONBASE SCANS) * CBC with platelets (04/19/2022 12:00 PM CDT) Pathologist [facility] Hematocrit (External) 37.9 33.0 - 51.0 % [...] on 04/20/2022. Provider Outside LAB - BLOOD ORDERABLES Edited R Kyte [facility] Performing Organization Address [facility] Co de Phone Number BREEZE PFT NON-INTERFACED (ONBASE SCANS) * Basic [...] on 04/20/2022. Provider Outside LAB - BLOOD ORDERABLES Edited [facility] Performing Organization Address City/[facility]/ZIP Co de Phone Number BREEZE PFT NON-INTERFACED (ONBASE SCANS) documented in this encounter Visit Diagnoses Not on filedocumented in this encounter Care Teams Chief Scientific Officer Relationship Specialty Start Date End Date Yamila Dave PA-C [facility] [address] [place] [address] PCP - General Physician Assistant Superintendent For Curriculum 04/14/20 Rahul Ford MD [facility] [address] [place] [address] Assigned Heart and Vascular Provider 01/23/21 03/02/23 Chadwick Jensen NP [address] [address] Nurse Practitioner Cardiovascular Disease 11/15/22 Chadwick Jensen NP [address] [address] Assigned Heart and Vascular Provider 03/03/23 08/17/23 Chadwick Jensen NP [address] [address] Assigned Heart and Vascular Provider 08/25/23 02/23/24 Rahul Ford MD Assigned Heart and Vascular Provider 08/18/23 08/24/23 Rahul Ford MD MD Cardiovascular Disease 01/24/24 Rahul Ford MD Assigned Heart and Vascular Provider 02/24/24 documented as of this encounter
--- OUTSIDE RECORDS SUMMARY | 2024-07-02 08:52 | XMS_ITS | Referral Summary ---
Author Organization [place] Address [address] [place] [address] Care Team Providers Care Mammography Technologist Name Role Phone Yamila Dave PA-C Primary Care Provider Chadwick Jensen NP Unavailable [phone] Rahul Ford MD Unavailable Un available Rahul Ford MD Unavailable Un available Encounters Date Type Department Care Team Description 04/04/2024 Documentation Only [facility] [address] [facility] [address] [place] [address] Susan Luo Advance Care Planning from Last 3 Months Allergies Active Allergy Reactions Criticality Noted Date Comments Bupropion Hives 11/18/2020 Paroxetine Rash Low 09/26/2006 Sertraline Rash Low 02/19/2012 Sulfa Antibiotics Rash Low 01/25/2020 Medications citalopram (CELEXA) 20 MG tablet Take 20 mg by mouth daily 0 Active Multiple Vitamin (MULTI-VITAMINS) TABS Take by mouth daily Active golimumab (SIMPONI) 50 MG/0.5ML auto-injector pen 50 mg every 28 days Active omeprazole (PRILOSEC) [address] capsule 20 mg daily Active atorvastatin (LIPITOR) 40 MG tabletIndications :Coronary artery disease involving creek coronary artery of creek heart without angina pectoris,Palpitat ions Take 1 tablet (40 mg) by mouth daily 90 tablet 3 2 Active losartan (COZAAR) 100 MG tabletIndications :Benign essential hypertension Take 1 tablet (100 mg) by mouth daily 90 tablet 3 Active metoprolol tartrate (LOPRESSOR) 25 MG tabletIndications :Coronary artery disease involving creek coronary artery of creek heart without angina pectoris,Palpitat ions Take 1 tablet (25 mg) by mouth 2 times daily 180 tablet 3 Active senna-docusate (SENOKOT-S/SINDHU LACE) 8.6-50 MG tabletIndications :Status post total hip replacement, left Take 1-2 tablets by mouth 2 times daily Take while on oral narcotics to prevent or treat constipation. 30 tablet 4 Active acetaminophen (TYLENOL) 325 MG tabletIndications :Status post total hip replacement, left Take 3 tablets (975 mg) by mouth every 6 hours as needed for mild pain 100 tablet 4 Active meloxicam (MOBIC) 15 MG tabletIndications :Status post total hip replacement, left Take 1 tablet (15 mg) by mouth daily for 42 days 42 tablet 4 Active oxyCODONE (ROXICODONE) 5 MG tabletIndications :Status post total hip replacement, left Take 0.5-1 tablets (2.5-5 mg) by mouth every 6 hours as needed for pain Take 1/2 tablet to 1 tablet every 4-6 hours as needed for moderate to advanced pain. 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 Gender Identity Female 04/22/2020 2:54 PM CDT [...] 03/20/2024 6:12 AM CDT Plan of Treatment Not on file Medical Devices Implanted Type Area Chemical Laboratory Scientist Device Identifier Shelf Expiration Date Model / Serial / Lot Imp [place] Hole Eliminator Hip Depuy Duraloc 1246-03-000 - [id number] Implanted:Qty : 1 on 03/20/2024 by Kong Diop MD at [facility] Metallic Hardware/An chor Left: Hip [employer] [id number] 01/31/2034 [id number] / / [id number] Imp Scr Bone Can Jose 6.5x35mm 1217-35500 - [id number] Implanted:Qty : 1 on 03/20/2024 by Kong Diop MD at [facility] Metallic Hardware/An chor Left: Hip [employer] [id number] 10/31/2032 [id number] / / [id number] Imp Scr Bone Can Jose 6.5x20mm 1217 - [id number] Implanted:Qty : 1 on 03/20/2024 by Kong Diop MD at [facility] Metallic Hardware/An chor Left: Hip [employer] [id number] 12/31/2033 [id number] / / [id number] Imp Cup Jose Norman 52mm 1217-22-052 - [id number] Implanted:Qty : 1 on 03/20/2024 by Kong Diop MD at [facility] Total Joint Component/I nsert Left: Hip [employer] [id number] 12/31/2033 [id number] / / [id number] Imp Insert Hip Depuy Norman Altrx [id number] 1221-36-052 - [id number] Implanted:Qty : 1 on 03/20/2024 by Kong Diop MD at [facility] Total Joint Component/I nsert Left: Hip [employer] [id number] 01/01/2028 1221-36-052 / / [id number] Imp Stem Fem Depuy Actis Collar Hi-Offset Sz 2mm 020 - [id number] Implanted:Qty : 1 on 03/20/2024 by Kong Diop MD at [facility] Total Joint Component/I nsert Left: Hip [employer] [id number] / / Imp Head Femoral Depuy Ceramic 36mm +1.5mm 1365-36-310 - [id number] Implanted:Qty : 1 on 03/20/2024 by Kong Diop MD at [facility] Total Joint Component/I nsert Left: Hip [employer] [id number] 12/31/2028 [id number] / / [id number] Procedures Procedure Name Priority Date/Time Associated Diagnosis Comments GLUCOSE STAT 03/20/2024 7:11 AM CDT LIPID REFLEX TO DIRECT LDL PANEL Routine 01/29/2024 8:56 AM CDT Coronary artery disease involving creek coronary artery of creek heart without angina pectoris Benign essential hypertension Palpitations BASIC METABOLIC PANEL Routine 01/29/2024 8:56 AM CDT Coronary artery disease involving creek coronary artery of creek heart without angina pectoris Benign essential hypertension Palpitations MAMMOGRAM - HIM SCAN Routine 08/24/2020 from Last 3 Months or Most Recently Relevant to Health Maintenance Results * Glucose (03/20/2024 7:11 AM CDT) Glucose 98 70 - 99 mg/dL 03/20/2024 7:52 AM CDT [facility] Patient Fasting > 8hrs? Yes 03/20/2024 7:52 AM CDT [facility] Blood STRUCTURE OF RIGHT UPPER LIMB / Unknown Venipuncture / Unknown 03/20/2024 7:11 AM CDT 03/20/2024 7:31 AM CDT us Brayan Goodwin MD LAB - BLOOD ORDERABLES Fin al Result LABORATORY [facility] [address] floor, [address] [place] [address], [facility] [phone] * (ABNORMAL) Lipid panel reflex to direct [...] ??Greater than or equal to 220 mg/dL us Chadwick Jensen NP LAB - BLOOD ORDERABLES Final Result LABORATORY [facility] [address] [place] [address], [facility] LABORATORY [facility] Lab [address] [facility] [facility] (1st floor, no room number) [place] [address] * Basic metabolic panel (01/29/2024 8:56 AM CDT) [facility] Sodium 141 135 - 145 mmol/L [...] CDT Chadwick Jensen NP LAB - BLOOD ORDERABLES Final Result LABORATORY [facility] [address] [facility] Lab (1st floor, no room number) [place] [address], [facility] * Mammogram - HIM Scan (08/24/2020) Negative Anatomical Region Laterality Modality Other us Provider Outside IMG MAMMOGRAPHY ORDERABLES Danyelle l Result from Last 3 Months or Most Recently Relevant to Health Maintenance Insurance [facility] Advance Directives For more information, please contact: [phone] Documents on File Type Date Recorded Patient Drawer Maker Expl anation Advance Directives and Living Will [...] Song Son Health Care Agent Care Teams Mammography Technologist Relationship Specialty Start Date End Date Yamila Dave PA-C [facility] [address] [place] [address] PCP - General Physician Coil Taper 04/14/20 Chadwick Jensen NP [address] [place] [address] Nurse Practitioner Cardiovascular Disease 11/15/22 Rahul Ford MD MD Cardiovascular Disease 01/24/24 Rahul Ford MD Assigned Heart and Vascular Provider 02/24/24
--- OUTSIDE RECORDS SUMMARY | 2024-07-02 08:52 | XMS_ITS | Data Portability ---
Author Organization [place] [facility], [place] [facility] - Address [address] [place] [address] Care Team Providers Care Filling Hand Name Role Phone DIEGO RIVAS Primary Care Provider Assessment No assessment recorded. Plan of Treatment Reminders Order Date Submit Date Provider Last Modified By Organization Details Last Modified Time Details Appointments None recorded. Lab None recorded. Referral None recorded. Procedures None recorded. Surgeries None recorded. Imaging None recorded. Medication Orders Contrave 8 mg-90 mg tablet,ext ended release 2016 017 [facility] #[id number], [address], [place], [place], [id number], 7 13:16:34 phentermin e 37.5 mg tablet 2016 017 INTER[facility] #[id number], [address], [place], [place], [id number], 7 13:24:12 phentermin e 37.5 mg tablet 2017 018 INTERFACE [facility] #[id number], [address], [place], [place], [id number], 8 13:24:36 Patient TargetsNo targets recorded. Patient Instructions Encounter Date Encounter Id Patient Instructions Last Modified By Organization Details Last Modified Time 05/14/2017 [id number] restart a carb/portion controlled diet plan restart regular exercise cont current meds start contrave - serd Not available 05/14/2017 20:10:32 06/12/2017 [id number] start metamucile or benefiber for constipation decrease losartan by 1/2 continue complete meal replacement diet continue regular exercise continue current meds Not available 06/12/2017 13:26:48 07/24/2017 [id number] cont CHERRY food srinivasan n cont regular exercise cont current meds except d/c contrave, start phentermine - serd Not available 07/24/2017 13:23:32 09/04/2017 [id number] cont carb/portio n controlled diet plan cont regular exercise cont current meds Not available 09/04/2017 13:22:41 01/09/2018 [id number] When You Want to Lose Weight: Care Instructions Not available 01/09/2018 11:57:06 Discussed trying to wean off lisinopril and omeprazole cont low carb diet plan add resistance training to exercise regimen Not available 01/09/2018 11:56:33 Reason for Referral None Reported. Results Created Date Observation Date Name Description Value Unit Range Abnormal Flag Note LastModifiedBy Organization Detail LastModifiedTime 01/10/20 18 01/09/2018 body compo sitio n latia sis (PROC ) No observ ation record ed. BARCODE Not Available 2017 11:41:50 Result Notes None recorded. Problems Name Problem SNOMED Code Status Onset Date Resolution Date Notes Provider Name and Address Organization Details Recorded Time Essential hypertension 03910636 Active 2016 Praveena Stanford NP [address] [facility],[address], [place], [address] , [facility] 7 15:26:16 Gastroesophag eal reflux disease 750238793 Active 2016 Praveena Stanford NP [address], [place], [address] , [facility] 7 15:26:24 Obstructive sleep apnea syndrome 76277956 Active 2016 Praveena Stanford NP [address], [place], [address] , [facility] 7 15:26:31 Vitamin D deficiency 18372528 Active 2016 Praveena Stanford NP [address], [facility] [place], [address] , [facility] 7 15:26:52 Iron deficiency anemia 15026737 Active 2016 Praveena Stanford NP [address], [facility] [place], [address] , [facility] 7 15:27:01 Obesity 640757378 Active 2016 Praveena Stanford NP [address], [facility] [place], [address] , [facility] 7 15:27:32 Problem Notes None recorded. Procedures Surgical History Date Name Laterality Status Provider Name and Address Organization Details Recorded Time 6 Date of Last Mammogram completed [facility] 01/08/2017 14:38:03 6 Date of Last Pap Smear completed [facility] 01/08/2017 14:38:23 2 Date of Last Colonoscopy completed [facility] 01/08/2017 14:38:09 Imaging Results Imaging Date Name Status LastModified by Organiz ation Details LastModified Time 01/09/2018 body composition analysis (PROC) completed BARCODE Information not available 01/09/2018 11:41:50 Procedure Notes None recorded. Medical Equipment None Reported. Allergies Allergen ID Allergen Name Allergen Category Reaction Reaction Severity Criticality Documentation Date Start Date Code Code System Note Provider Name and Address Organization Details Recorded Time 493363 Substance with sulfonami de structure and antibacte rial mechanism of action (substanc e) medicatio n Not available Not available Not available 04/17/2016 74330 8003 SNOMED [address] [facility] 6 16:27:07 286395 Zoloft medicatio n rash Not available Not available 01/08/2017 48713 RxNorm Terri Leonard [facility], [place] - [facility] 7 14:32:43 Medications Name Sig Start Date [...] Not Available Not Available Not Available Fluvirin 45 mcg (15 mcg x 3)/0.5 mL intramuscula r suspension ADM 0.5ML IM UTD 01/08 completed Not Available Not Available Not Available Vitals Date Recorded Body height Body mass index (BMI) Body weight Heart rate Systolic blood pressure Diastolic blood pressure Provider Name and Address Organization Details Last Updated DateTime 7 160.02 cm 33.1 kg/m2 88103.3 4 g 76 /min 120 mm[Hg] 88 mm[Hg] Terri Valle [facility] 7 19:17:08 Date Recorded Body weight Provider Name an d Address Organization Details Last Updated DateTime 05/28/2017 43925.45 g Terri Valle [facility] 05/28/2017 18:43:50 Date Recorded Body height Body mass index (BMI) Body weight Heart rate Systolic blood pressure Diastolic blood pressure Provider Name and Address Organization Details Last Updated DateTime 7 160.02 cm 32 kg/m2 84869.5 g 70 /min 126 mm[Hg] 72 mm[Hg] Terri Valle [facility] 7 13:01:48 Date Recorded Body height Body mass index (BMI) Body weight Heart rate Systolic blood pressure Diastolic blood pressure Provider Name and Address Organization Details Last Updated DateTime 7 160.02 cm 31.7 kg/m2 47747.7 5 g 80 /min 122 mm[Hg] 72 mm[Hg] Ashley Davis [facility] 7 13:03:20 Date Recorded Body height Body mass index (BMI) Body weight Heart rate Systolic blood pressure Diastolic blood pressure Provider Name and Address Organization Details Last Updated DateTime 8 160.02 cm 31.4 kg/m2 95838.6 5 g 92 /min 121 mm[Hg] 78 mm[Hg] Ashley Lasso [facility] 8 12:52:05 Date Recorded Body height Body mass index (BMI) Body weight Heart rate Systolic blood pressure Diastolic blood pressure Provider Name and Address Organization Details Last Updated DateTime 8 160.02 cm 29.4 kg/m2 39884.6 1 g 70 /min 116 mm[Hg] 70 mm[Hg] Terri Leonard [facility] 8 11:39:02 Social History Question Answer Notes LastModified by Organizat ion Details LastModified Time Tobacco Smoking Status Never Smoker Terri johnson [facility] 01/09/2018 11:39:21 What Is Your Level Of Alcohol Consumption? Occasional Information not available 04/17/2016 What Is Your Level Of Caffeine Consumption? Occasional [email or web address] Information not available 01/08/2017 How Much Tobacco Do You Chew? None Information not available 04/17/2016 What Type Of Diet Are You Following? REGULAR Information not available 04/17/2016 Which Illicit Or Recreational Drugs Have You Used? 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 No [email or web address] Information not available 01/09/2018 Have You Traveled Outside Of The [place] In The Last 21 Days (3 Weeks)? No Information not available 04/17/2016 Did You Hurt Yourself When You Fell In The Last Year? No [email or web address] Information not available 01/09/2018 Marital Status Informatio n not available 04/17/2016 What Was The Date Of Your Most Recent Tobacco Screening? 01/09/2018 Information not available 03/28/2019 How Much Tobacco Do You Smoke? No [email or web address] Information not available 01/09/2018 How Many Years Have You Smoked Tobacco? 0 Information not available 03/19/2017 Sex: Unknown Functional Status Question Answer Note LastModified by Organization D etails LastModified Time What is your exercise level? None Information not available 04/17/2016 Mental Status None recorded. Family History Relationship Description Onset Age of this Age Resolved Age Notes LastModified by Organization Details LastModified Time Father Family history of malignant neoplasm prosta te [email or web address] Not available 01/08/2017 14:38:56 Father Myocardial infarction 2 heart attack s, conges tive heart failur e [email or web address] Not available 01/08/2017 14:39:56 Mother Depressive disorder [email or web address] Not available 04/2017 14:39:06 Mother Anxiety [email or web address] Not availab le 01/08/2017 14:39:16 Mother Hypertensive disorder [email or web address] Not available 04/2017 14:40:10 Medical History Condition Response Bowel Disorder N Seizure Disorder N Liver Problems N Fatigue N Hernia N Constipation / [...] Encounter Start Date Encounter Closed Date Diagnosis/Indication Diagnosis SNOMED-CT Code Diagnosis ICD10 Code [id number] Mariangel Jo [facility] [address] [place] [address] 04/17/2016 15:56:59 04/18/2016 10:33:38 [id number] Praveena Stanford NP [facility] [place] [facility] [address] [place] [address] 01/08/2017 14:25:43 01/08/2017 20:34:40 Essential hypertension 33654026 I10 Obesity 652654184 E66.9 Vitamin D deficiency 347 47284 E55.9 Obstructiv e sleep apnea syndrome 30046274 G47.33 Gastroesop hageal reflux disease 408228534 K21.9 Electrocar diogram abnormal 778022721 R94.31 [id number] Winnie Velasquez DO [facility] [place] [facility] [address] [place] [address] 01/22/2017 19:38:55 01/23/2017 13:42:34 Essential hypertension 33233453 I10 Obesity 209796394 E66.9 Obstructiv e sleep apnea syndrome 10124756 G47.33 Electrocar diogram abnormal 010990394 R94.31 [id number] Praveena Stanford NP [facility] [place] [facility] [address] [place] [address] 02/05/2017 19:21:08 02/06/2017 21:42:06 Obesity 401491826 E66.[id number] [facility] [place] [facility] [address] [place] [address] 02/21/2017 12:00:09 02/21/2017 13:00:15 [id number] Sage Watson MD [facility] [place] [facility] [address] [place] [address] 03/19/2017 19:26:18 03/20/2017 20:31:00 Obesity 314032956 E66.9 [id number] Sage Watson MD [facility] [place] [facility] [address] [place] [address] 04/16/2017 18:30:03 04/17/2017 17:20:29 Essential hypertension 72870095 I10 Obesity 079916969 E66.9 [id number] Sage Watson MD [facility] [place] [facility] [address] [place] [address] 05/14/2017 19:07:14 05/15/2017 12:30:26 Obesity 343689845 E66.9 Menopausal flushing 1984 19165 N95.1 [id number] Sage Watson MD [facility] [place] [facility] [address] [place] [address] 06/12/2017 12:57:29 06/14/2017 14:18:51 Constipation 14751387 K59.00 Lightheadedness 03109891 8 R42 Obesity 863529381 E66.9 [id number] Sage Watson MD [facility] T [address] [place] [address] 07/24/2017 12:56:52 07/25/2017 12:41:37 Obesity 831700809 E66.9 [id number] Sage Watson MD [facility] [address] [place] [address] 09/04/2017 12:40:14 09/05/2017 22:03:14 Essential hypertension 75740722 I10 Obesity 970738623 E66.9 [id number] Sage Watson MD [facility] [address] [place] [address] 01/09/2018 11:29:35 01/09/2018 20:00:38 Essential hypertension 52703755 I10 Obstructiv e sleep apnea syndrome 41054433 G47.33 Gastroesop hageal reflux disease 704852283 K21.9 Obesity 940418462 E66.9 Health Concerns Section Related Observation LastModified by Organization Detai ls LastModified Time None Recorded Concern Status LastModified by Organization Details LastModified Time None Recorded Advance Directives Directive None Recorded Payers Encounter Date Sequence Insurance Name Policy Number Policy Sheehan Covered Member ID Sheehan Member ID Guarantor Name 05/14/2017 1 [employer]) [id number] Kriss Song [id number] Kriss Song 06/12/2017 1 [employer]) [id number] Kriss Song [id number] Kriss Song 07/24/2017 1 [employer]) [id number] Kriss Song [id number] Kriss Song 09/04/2017 1 [employer]) [id number] Kriss Angulosen [id number] Kriss Angulosen 01/09/2018 1 [employer] (PP[employer]) [id number] Kriss Angulosen [id number] Kriss Song Notes Date Note Type Note Provider Name and Address Organization Details Recorded Time 05/14/2017 text/html HPI Notes: gonzález bell to have hot flashes and menopause sxs - seen PMD and instructed that she is not a candidate for HRT. obesity - lost 8# sine January - struggling with further weight oss. Sage Watson MD [address] [place] [address],[address], [address], [facility] 05/14/2017 20:10:44 06/12/2017 text/html HPI Notes: constipation for the past several weeks -- not taking any otc fiber. lightheadedness with position change - has rx for lower dose of losartan but has not started yet. obesity - lost 14# since January. Taking contrave bid - constipation worsened since starting contrave. Walking for exercise. Sage Watson MD [address] [place] [address],[address], [address], [facility] 06/12/2017 13:27:39 07/24/2017 text/html HPI Notes: GERD - omeprazole daily, no dysphagia. Started [employer] (formerly [employer]) food plan. Walking for exercise. obesity - lost 14# since January. Taking contrave bid - does not feel that is helping. Sage Watson MD [address] [place] [address],[address], [address], [facility] 07/24/2017 13:24:04 09/04/2017 text/html HPI Notes: htn - decreased losartan/hct daily without s.e. Not exercising consistently. Following a CHERRY diet plan. obesity - lost 14# since January. Taking phentermine 1/2 tab po daily without s.e. Sage Watson MD [address] [place] [address],[address], [address], [facility] 09/04/2017 13:24:25 01/09/2018 text/html HPI Notes: htn - decreased losartan/hct daily without s.e. Jeet 5 x a week. Following a low carb diet plan. CADENCE - does not use cpap. gerd - omeprazole daily - no heartburn , no dysphagia. obesity - lost 29# since January 2017. Taking phentermine 1/2 tab po daily without s.e. Sage Watson MD [address] [place] [address],[address], [place], [address], [facility] 01/09/2018 11:57:09 OBGyn Episode No OBEpisode recorded.
--- OUTSIDE RECORDS SUMMARY | 2024-07-02 08:52 | XMS_ITS | Encounter Summary ---
Author Organization [facility] Address [address] [facility] 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 Provider Outside LAB - BLOOD ORDERABLES [facility] PFT NON-INTERFACED (ONBASE SCANS) * (ABNORMAL) CRP inflammation (01/07/2024 2:50 PM CDT) Pathologist [facility] CRP Inflammation (External) <0.5(L) 0.5 - 1.0 mg/dL NON-INTERFACE D (ONBASE SCANS) Blood BLOOD SPECIMEN / Unknown 01/07/2024 2:50 PM CDT Narrative [facility] - 01/07/2024 2:50 PM CDT Verified by Carmella Munroe on 01/25/2024. Provider Outside LAB - BLOOD ORDERABLES Edited [facility]REEZE PFT NON-INTERFACED (ONBASE SCANS) * TSH (01/07/2024 2:50 PM CDT) Pathologist [facility] TSH (External) 2.290 0.270 - 4.200 uIU/mL NON-INTERFACED (ONBASE SCANS) Blood BLOOD SPECIMEN / Unknown 01/07/2024 2:50 PM CDT Narrative [facility] - 01/25/2024 2:26 PM CDT Verified by Carmella Munroe on 01/25/2024. us Provider Outside LAB - BLOOD ORDERABLES Edited R esult - Final [facility] PFT NON-INTERFACED (ONBASE SCANS) documented in this encounter Visit Diagnoses Not on filedocumented in this encounter Care Teams Depot Agent Relationship Specialty Start Date End Date Yamila Dave PA-C [facility] [address] [place] [address] PCP - General Physician Lead Housekeeper 04/14/20 Chadwick Jensen NP [address] [address] Nurse Practitioner Cardiovascular Disease 11/15/22 Chadwick Jensen NP [address] [address] Assigned Heart and Vascular Provider 08/25/23 02/23/24 Rahul Ford MD Cardiovascular Disease 01/24/24 Rahul Ford MD Assigned Heart and Vascular Provider 02/24/24 documented as of this encounter
--- OUTSIDE RECORDS SUMMARY | 2024-07-02 08:52 | XMS_ITS | Encounter Summary ---
Author Organization [place] Address [address] 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 Gender Identity Female 04/22/2020 2:54 PM CDT Sexual Orientation Straight 04/22/2020 2: 54 PM CDT documented as of this encounter Plan of Treatment Not on file documented as of this encounter Visit Diagnoses Not on filedocumented in this encounter Care Teams Blueprint Engineer Relationship Specialty Start Date End Date Yamila Dave PA-C [facility] [address] [place] [address] PCP - General Physician Gas Station Cashier 04/14/20 Chadwick Jensen NP [address] [place] [address] Nurse Practitioner Cardiovascular Disease 11/15/22 Rahul Ford MD MD Cardiovascular Disease 01/24/24 Rahul Ford MD Assigned Heart and Vascular Provider 02/24/24 documented as of this encounter
--- OUTSIDE RECORDS SUMMARY | 2024-07-02 08:52 | XMS_ITS | Encounter Summary ---
Author Organization [place] Address [address] [place] [address] Care Team Providers Care General Maintenance Mechanic Name Role Phone Yamila Dave PA-C Primary Care Provider Chadwick Jensen NP Unavailable [phone] Rahul Ford MD Unavailable Un available Rahul [...] PM CDT Legal Sex Female 7:41 PM PROPERTY SPECIALIST Gender Identity Female 04/22/2020 2:54 PM CDT Sexual Orientation Straight 04/22/2020 2: 54 PM CDT documented as of this encounter Plan of Treatment Not on file documented as of this encounter Visit Diagnoses Not on filedocumented in this encounter Care Teams General Maintenance Mechanic Relationship Specialty Start Date End Date Yamila Dave PA-C [facility] [address] [place] [address] PCP - General Physician Family Consumer Science Teacher 04/14/20 Chadwick Jensen NP [address] [place] [address] Nurse Practitioner Cardiovascular Disease 11/15/22 Rahul Ford MD MD Cardiovascular Disease 01/24/24 Rahul Ford MD Assigned Heart and Vascular Provider 02/24/24 documented as of this encounter
--- OUTSIDE RECORDS SUMMARY | 2024-07-02 08:52 | XMS_ITS | Clinical Summary ---
Author Organization [place] Address [address] [facility] [place] [address] Care Team Providers Care Battery Loader Name Role Phone Yamila Dave PA-C Primary Care Provider Chadwick Jensen NP Unavailable [phone] Rahul Ford MD Unavailable Un available Rahul [...] 40 MG tabletIndications :Coronary artery disease involving [place] coronary artery of [place] heart without angina pectoris,Palpitat ions Take 1 tablet (40 mg) by mouth daily 90 tablet 3 2 Active losartan (COZAAR) 100 MG tabletIndications :Benign essential hypertension Take 1 tablet (100 mg) by mouth daily 90 tablet 3 Active metoprolol tartrate (LOPRESSOR) 25 MG tabletIndications :Coronary artery disease involving [place] coronary artery of [place] heart without angina pectoris,Palpitat ions Take 1 [...] Team Description 04/04/2024 Documentation Only [facility] [address] [place] [address] Susan Luo Advance Care Planning from Last 3 Months Immunizations Name Administration Dates Next Due COVID-19 MONOVALENT 12+ (Pfizer) 12/30/2020,040 04/2021 Family History Medical History Relation Comments Aortic [...] PM CDT Legal Sex Female 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 Gender Identity Female 04/22/2020 2:54 PM CDT Sexual Orientation Straight 04/22/2020 2 :54 PM CDT Last Filed Vital Signs Vital [...] 03/20/2024 6:12 AM CDT Plan of Treatment Health Maintenance [...] 2024 , 06/19/2022, 06/13/2022, Additional history exists BMP 01/28/2025 01/29/2024, 02/02, 04/19/2022, Additional history exists LIPID 01/28/2025 01/29/2024, 02/02, [...] this topic Medical Devices Implanted Type Area X Ray Equipment Mechanic Device Identifier Shelf Expiration Date Model / Serial / Lot Imp [place] Hole Eliminator Hip Depuy Duraloc 1246-03-000 - [id number] Implanted:Qty : 1 on 03/20/2024 by Kong Diop MD at [facility] Metallic Hardware/An chor Left: Hip [employer] [id number] 01/31/2034 [id number] / / [id number] Imp Scr Bone Can Jose 6.5x35mm 1217-35-500 - [id number] Implanted:Qty : 1 on 03/20/2024 by Kong Diop MD at [facility] Metallic Hardware/An chor Left: Hip [employer] [id number] 10/31/2032 [id number] / / [id number] Imp Scr Bone Can Jose 6.5x20mm 1217-20-500 - [id number] Implanted:Qty : 1 on 03/20/2024 by Kong Diop MD at [facility] Metallic Hardware/An chor Left: Hip [employer] [id number] 12/31/2033 [id number] / / [id number] Imp Cup Jose [place] 52mm 1217-22-052 - [id number] Implanted:Qty : 1 on 03/20/2024 by Kong Diop MD at [facility] Total Joint Component/I nsert Left: Hip [employer] [id number] 12/31/2033 [id number] / / [id number] Imp Insert Hip Depuy [place] Altrx [id number] 1221-36-052 - [id number] Implanted:Qty : 1 on 03/20/2024 by Kong Diop MD at [facility] Total Joint Component/I nsert Left: Hip [employer] [id number] 01/01/2028 1221-36-052 / / [id number] Imp Stem Fem Depuy Actis Collar Hi-Offset Sz 2mm - [id number] Implanted:Qty : 1 on 03/20/2024 by Kong Diop MD at [facility] Total Joint Component/I nsert Left: Hip [employer] [id number] / / Imp Head Femoral Depuy Ceramic 36mm +1.5mm 1365-36-310 - [id number] Implanted:Qty : 1 on 03/20/2024 by Kong Diop MD at [facility] Total Joint Component/I nsert Left: Hip [employer] [id number] 12/31/2028 [id number] / / [id number] Procedures Procedure Name Priority Date/Time Associated Diagnosis Comments GLUCOSE STAT 03/20/2024 7:11 AM CDT LIPID REFLEX TO DIRECT LDL PANEL Routine 01/29/2024 8:56 AM CDT Coronary artery disease involving [place] coronary artery of [place] heart without angina pectoris Benign essential hypertension Palpitations BASIC METABOLIC PANEL Routine 01/29/2024 8:56 AM CDT Coronary artery disease involving [place] coronary artery of [place] heart without angina pectoris Benign essential hypertension [...] - BLOOD ORDERABLES Fin al Result LABORATORY [facility] Acute Care Lab [address] 1st floor, [address] [place] [address], [facility] [phone] * (ABNORMAL) Lipid panel reflex to direct [...] NP LAB - BLOOD ORDERABLES Final Result U LABORATORY [facility] Lab [address], [address] [place] [address], [facility] LABORATORY [facility] Acute Care Lab [address] Lab (1st floor, no room number) [place] [address], [facility] * Basic metabolic panel (01/29/2024 8:56 AM CDT) [facility] Sodium 141 135 - 145 mmol/L 01/29/2024 10:01 AM CDT [facility]ATORY Comment:Reference intervals for this test were [...] LAB - BLOOD ORDERABLES Final Result LABORATORY [facility] Acute Care Lab [address] Lab (1st floor, no room number) [place] [address] * Mammogram - HIM Scan (08/24/2020) Negative Anatomical Region Laterality Modality Other us Provider Outside IMG MAMMOGRAPHY ORDERABLES Danyelle l Result from Last 3 Months or Most Recently Relevant to Health Maintenance Insurance [facility] Advance Directives For more information, please contact: [phone] Documents on File Type Date Recorded 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 Expl 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 Advance Directives and Living Will [...] Agents on File Name Relationship [facility] Batool Chandra Daughter First Alternate Health Care Agent Calos Song Son Health Care Agent Care Teams Battery Loader Relationship Specialty Start Date End Date Yamila Dave PA-C [facility] [address] [place] [address] PCP - General Physician Communication Professor 04/14/20 Chadwick Jensen NP [address] [place] [address] Nurse Practitioner Cardiovascular Disease 11/15/22 Rahul Ford MD Cardiovascular Disease 01/24/24 Rahul Ford MD Assigned Heart and Vascular Provider 02/24/24
--- OUTSIDE RECORDS SUMMARY | 2024-07-02 08:52 | XMS_ITS | Encounter Summary ---
Author Organization [place] Address [facility] 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 Gender Identity Female 04/22/2020 2:54 PM CDT Sexual Orientation Straight 04/22/2020 2: 54 PM CDT documented as of this encounter Plan of Treatment Not on file documented as of this encounter Visit Diagnoses Not on filedocumented in this encounter Care Teams Glassblower Relationship Specialty Start Date End Date Yamila Dave PA-C [facility] [address] [place] [address] PCP - General Physician Resident Athletic Trainer 04/14/20 Alo Steel PA-C [address] [place] [address] Assigned Heart and Vascular Provider 11/17/20 01/22/21 Rahul Ford MD [address] [place] [address] Assigned Heart and Vascular Provider 01/23/21 03/02/23 Chadwick Jensen NP [address] [place] [address] Nurse Practitioner Cardiovascular Disease 11/15/22 Chadwick Jensen NP [address] [place] [address] Assigned Heart and Vascular Provider 03/03/23 08/17/23 Chadwick Jensen NP [address] [place] [address] Assigned Heart and Vascular Provider 08/25/23 02/23/24 Rahul Ford MD Assigned Heart and Vascular Provider 08/18/23 08/24/23 Rahul Ford MD MD Cardiovascular Disease 01/24/24 Rahul oFrd MD Assigned Heart and Vascular Provider 02/24/24 documented as of this encounter
== END 2024-06-30 13:02 | disposition home or self-care (01) ==
LOC: NFLDREF 07-02 08:49
PROVIDERS: PCP Physician Assistant Medical; Referring Provider Physician Assistant Medical; Visit Provider Physician Assistant Medical
DX: R42 Dizziness and giddiness (principal)
CPT/HCPCS: 82607; 83540; 83550

== ENCOUNTER 2024-08-04 09:03 | Outpatient (CLI) | payer BC, SELFPAY ==
--- OUTSIDE RECORDS SUMMARY | 2024-08-06 08:07 | XMS_ITS | Encounter Summary ---
Author Organization [facility] Address [address] [address] Phone Care Team Providers Care Attendant Campground Name Role Phone Elsewhere, Pcp Primary Care Provider Unavailabl e Reason for Visit * Reason Onset Date Comments Pre-Procedure Call 06/10/2024 * Auth/Cert (Routine) Specialty Diagnoses / Procedures Referred By Vickie zuniga Referred To Contact Diagnoses Degenerative joint disease of right hip M16.11 Procedures TOTAL HIP REPLACEMENT Right total hip arthroplasty direct anterior approach Kai Carrillo MD [facility] [address] [address] Phone: tel: fax: Referral ID Status Reason Start Date Expiration Date Visits Re quested Visits Authorized [id number] 1 1 Encounter Details Date Type Department Care Team (Late st Contact Info) Description 06/13/2024 5:52 AM CDT - 06/14/2024 10:45 AM CDT Hospital Encounter [address] [address] Kai Carrillo MD [facility] [address] [address] Status post total replacement of right hip (Primary Dx) Discharge Disposition: Home and/or Self Care Social History Tobacco Use Types Packs/Day Years Used Date Smoking Tobacco: Never Passive Smoke Exposure: Past Smokeless Tobacco: Never Alcohol Use Standard Drinks/Week Comments Yes 0 (1 standard drink = 0.6 oz pur e alcohol) monthly [facility] Utilities Answer Date Recorded In the [...] any time in the past 12 [facility], were you homeless or living in a correction (including now)? No 06/13/2024 IP Custom IPV Answer Date Recorded Do you feel UNSAFE in any of your personal relationships with your family members or any other acquaintances? 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 Follow Up Instructions: Kai Carrillo MD [facility] [address] [place] [address] Go on 07/02/2024 Post-op appointment scheduled with Dr. Carrillo on 07/02/24 at 2:00 PM at the [place] office Mesha Andino PA-C documented in this encounter Medications at Time of Discharge iron-vitamin C (Vitron-C) 65-125 MG tablet Take 1 Tablet by mouth one time a day. 90 Tablet 06/14/2024 diphenhydrAMINE- APAP, sleep, (TYLENOL PM EXTRA STRENGTH OR) Take 1 Tablet by mouth at bedtime as needed. oxyCODONE (Roxicodone) 5 MG immediate release tabletIndication [...] Tablet by mouth one time a day. aspirin EC 325 MG tablet Take 1 Tablet by mouth one time a day for 42 days. For DVT prevention. Do not split or crush. 42 Tablet 06/13/2024 4 meloxicam (Mobic) 15 MG tablet Take 1 Tablet by mouth one time a day for 42 days. Take with food. 42 Tablet 06/13/2024 4 documented as of this encounter Ordered Prescriptions [...] Means Destination Comment s Home and/or Self Group Home documented in this encounter Progress Notes * [...] 61-90 Moderate Dependence 91-99 Slight Dependence 100 Ransom Score Prediction Less than 40 Unlikely to [...] cues and stand by assist. Patient and college basketball coach were also educated on exit of [...] minutes with walker and icing every hour [id number] minutes during the day; HEP - 2x/day; [...] precautions following ARVIND. The patient and their college basketball coach have been instructed on safe patient [...] Total Treatment Time: 18 minutes Therapeutic Activities (04222) = 10 minutes Gait Training (16772) = 8 minutes * Aracely Gomez PA-C [...] work and other consultants. * Aracely Gomez RITIKA Graves - 06/13/2024 11:13 AM CDT PROGRESS NOTE [...] No Length of Stay Plan reviewed;Overnight stay Manager Grocery name & phone number Eloise Saleem [phone] Will your college basketball coach be the one picking you up [...] Pre-op H&P date 05/19/24 Pre-op H&P location [facility] in [place] How many stairs to enter your home? [...] of Procedure: 06/13/2024 SURGEON KAI CARRILLO M.D. SAFETY PATROL OFFICER Maria Del Carmen Morocho PA-C - Assisting PREOPERATIVE DIAGNOSIS Right hip osteoarthritis, failed to respond to conservative management. POSTOPERATIVE DIAGNOSIS Right hip osteoarthritis, failed to respond to conservative management. TITLE OF PROCEDURE Right total hip arthroplasty, Depuy uncemented components, direct anterior approach. [employer] computerassisted fluoroscopic hip navigation. ANESTHESIA TYPE: General ESTIMATED BLOOD LOSS: 500 mL SPECIMEN(S) No Specimens Collected COMPLICATIONS: none IMPLANT(S): Implant Name Type Inv. Item Serial No. Hatch Supervisor Lot No. LRB No. Used Action APEX HOLE ELIMINATOR PS - [id number] APEX HOLE ELIMINATOR PS NA DEPUY [id number] Right 1 Implanted CUP ACET 52MM PINNACLE SECTOR II - [id number] CUP ACET 52MM PINNACLE SECTOR II NA DEPUY [id number] Right 1 Implanted SCREW BONE PINNACLE CANCELLOUS 6.5X25MM - [id number] SCREW BONE PINNACLE CANCELLOUS 6.5X25MM NA DEPUY [id number] Right 1 Implanted LINER ACET ALTRX 36MM X 52MM NEUTRAL - [id number] LINER ACET ALTRX 36MM X 52MM NEUTRAL NA DEPUY [id number] Right 1 Implanted SCREW BONE CANCELLOUS 6.5MM X 35MM - [id number] SCREW BONE CANCELLOUS 6.5MM X 35MM NA DEPUY [id number] Right 1 Implanted STEM FEMORAL ACTIS DUOFIX SZ 3 - [id number] STEM FEMORAL ACTIS DUOFIX SZ 3 NA DEPUY [id number] Right 1Implanted HEAD FEMORAL BIOLOX DELTA SZ 36 +1.5MM - [id number] HEAD FEMORAL BIOLOX DELTA SZ 36 +1.5MM NA [id number] Right 1 Implanted PROCEDURE The patient was brought to the operating room and after satisfactory anesthesia was placed on the Haskell table. The right lower extremity was then [...] aid of image intensification. A 52 mm Troy cup was impacted into place in approximately [...] and found to have good length and christianity of offset. It was felt that an [...] of tranexamic acid pre-op. A skilled first aid officer was necessary for this procedure for assistance [...] therapy. 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 Pt had her left hip replaced in March 2024 at [facility] Admission Diagnosis: Degenerative joint disease of [...] balance POD0. Therapeutic Activity: Skilled therapeutic education, extension course counselor and activity modification was providedto patient [...] concerns to note. Patient is appropriate for [facility] led physical therapy services. Barriers to Discharge [...] Time: 30 minutes Evaluation Moderate - Complexity (78376) Therapeutic Activities (68023) = 12 minutes Gait Training (24935) = 8 minutes * Brief Op Note - Kai Carrillo MD - 06/13/2024 10:53 AM CDT [facility] Pre-Op Diagnosis: Right hip degenerative joint disease M16.11, CPT: 77128 Post-Op Diagnosis: Same Procedure(s): Right direct anterior total hip arthroplasty Anesthesia Type: General Surgeons and Role: * Kai Carrillo MD - Primary * Maria Del Carmen Morocho PA-C - Assisting Estimated Blood Loss: 500 mL Specimen(s): No Specimens Collected Complications: None Implant(s): Implant Name Type Inv. Item Serial No. Hatch Supervisor Lot No. LRB No. Used Action APEX HOLE ELIMINATOR PS - [id number] APEX HOLE ELIMINATOR PS NA DEPUY [id number] Right 1 Implanted CUP ACET 52MM PINNACLE SECTOR II - [id number] CUP ACET 52MM PINNACLE SECTOR II NA DEPUY [id number] Right 1 Implanted SCREW BONE PINNACLE CANCELLOUS 6.5X25MM - [id number] SCREW BONE PINNACLE CANCELLOUS 6.5X25MM NA DEPUY [id number] Right 1 Implanted LINER ACET ALTRX 36MM X 52MM NEUTRAL - [id number] LINER ACET ALTRX 36MM X 52MM NEUTRAL NA DEPUY [id number] Right 1 Implanted SCREW BONE CANCELLOUS 6.5MM X 35MM - [id number] SCREW BONE CANCELLOUS 6.5MM X 35MM NA DEPUY [id number] Right 1 Implanted STEM FEMORAL ACTIS DUOFIX SZ 3 - [id number] STEM FEMORAL ACTIS DUOFIX SZ 3 NA DEPUY [id number] Right 1Implanted HEAD FEMORAL BIOLOX DELTA SZ 36 +1.5MM - [id number] HEAD FEMORAL BIOLOX DELTA SZ 36 +1.5MM NA [id number] Right 1 Implanted Plan: DC home POD1 [...] on 07/02/24 at 2:00 PM at the [place] office Patient's goals after surgery: less pain Patient's concerns with upcoming surgery: none H&P Patient's pre-operative history and physical with their primary care physician was reviewed. From that, the following should be noted: -HTN, CAD, psoriatic arthritis (holding humira currently), untreated CADENCE (AHI 13 from 2016), GERD, anxiety -s/p L[facility] 03/20/24 at [facility]. No complications per patient. Discharged POD #1. [...] time of discharge between 9:00AM-12:00PM with their taxi driver supervisor arriving by 8:00 AM Graphic Design Professor: Eloise saleem Discharge location: home Anticipated Home Health Services: None Manager Grocery/Family member available after discharge: Niece will stay with patient first 2 nights (was notpresent for this discussion) Post-operative medication plan and education was discussed Patient's medication dosing and sig for the above medications to be determined post-operatively. In the event of a concern arising after surgery, the patient was provided with the following information: During business hours, call surgeon's director of career resources, Marysol Ghotra at [phone]. After business hours, call the on-call provider at [phone]. [facility] was discussed. They [...] Assistive Devices Page 17/51 They understand their college basketball coach should bring their assistive device to [...] is not an outpatient pharmacy at the [facility] and they will need to pickle pumper their post-operative medications at a pharmacy of [...] of surgery after arriving at the [facility]. Avoiding a Delayed Surgery Page 10 I gave them this reference to use between now and surgery to avoid their surgery being delayed or cancelled. Adamaris Villa PA-C [facility] documented in this encounter Plan of [...] - 16.0 g/dl 06/14/2024 7:31 AM CDT [facility] Blood BLOOD SPECIMEN / Unknown Venipuncture / Unknown 06/14/2024 7:17 AM CDT 06/14/2024 7:27 AM CDT Kai AGUILERA HEMATOLOGY ORDERABLES Final Result [facility] [address] [phone] * XR HIP RIGHT 2 OR 3 [...] 0814 (Given - Provider: Klever Coleman APRN, GEOPOLITICS TEACHER) ceFAZolin (ANCEF) 2 g in dextrose 4% [...] Polk RN) 0537 (Given - Provider: Rachel Olmos, ANUM) lactated ringers BOLUS BAG 250 mL 250 [...] Until 06/14/24 at 1502, Respiratory Depression, Other, 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
--- OUTSIDE RECORDS SUMMARY | 2024-08-06 08:07 | XMS_ITS | Clinical Summary ---
Author Organization [facility] Address [address] [address] Phone Care Team Providers Care Administrative And Program Specialist Name Role Phone Elsewhere, Pcp Primary Care Provider Unavailabl e Allergies Active Allergy Reactions Criticality Noted Date Comments Bupropion RASH Medium 06/10/2024 Sertraline RASH Medium 06/10/2024 Sulfa Drugs RASH Medium 06/10/2024 Medications atorvaSTATin (Lipitor) 40 MG tablet Take 40 mg by mouth one time a day. 04/06/20 22 Active citalopram (CeleXA) 20 MG tablet Take 20 mg by mouth one time a day. 12/26/19 18 Active losartan (Cozaar) 100 MG tablet Take 100 mg by mouth one time a day. 02/24/20 23 Active metoprolol tartrate (Lopressor) 25 MG tablet Take 25 mg by mouth two times a day. 02/24/20 23 Active Multiple Vitamin (Daily Vites) Tablet tablet Take 1 Tablet by mouth one time a day. Active omeprazole (PriLOSEC) 20 MG delayed-release capsule Take 20 mg by mouth one time a day. 01/20/20 15 Active diphenhydrAMINE -APAP, sleep, (TYLENOL PM EXTRA STRENGTH OR) Take 1 Tablet by mouth at bedtime as needed. Active oxyCODONE (Roxicodone) 5 MG immediate release tabletIndicatio ns:Status post total replacement of right hip Take 1-2 Tablets by mouth every six hours as needed for Pain. Take 1 to 2 tablet every 4-6 hours as needed for pain. Take 1 tablet for pain rated 4-6, take 2 tablets for pain rated 7-10) 30 Tablet 06/13/20 24 Active senna-docusate (Senna S) 8.6-50 MG oral tablet Take 1-2 Tablets by mouth two times a day. 30 Tablet 06/13/20 24 Active acetaminophen (TYLENOL) 325 MG tablet Take 3 Tablets by mouth every six hours as needed for Pain. Limit acetaminophen to 4000 mg per day from all sources. 100 Tablet 06/13/20 Active iron-vitamin C (Vitron-C) 65-125 MG tablet Take 1 Tablet by mouth one time a day. 90 Tablet 06/14/20 Active aspirin EC 325 MG tablet Take 1 Tablet by mouth one time a day for 42 days. For DVT prevention. Do not split or crush. 42 Tablet 06/13/20 24 024 meloxicam (Mobic) 15 MG tablet Take 1 Tablet by mouth one time a day for 42 days. Take with food. 42 Tablet 06/13/20 024 Active Problems Problem Noted Date Diagnosed Date Status post total replacement of right hip 06/10 Encounters Date Type Department Care Team Description 06/13/2024 11:05 AM CDT Ancillary Procedure [facility] [address] [place] [address] [address] [place] [id number] 06/13/2024 8:15 AM CDT - 06/13/2024 11:45 AM CDT Surgery [facility] OR [address] [place] [phone] Kong Alvares MD Right total hip arthroplasty direct anterior approach 06/13/2024 8:14 AM CDT Anesthesia Event [facility] [address] [place] [phone] Scotty Bryan MD Beerling, Nathan T, MD 06/13/2024 6:30 AM CDT Ancillary Procedure [facility] [address] [facility] [address] [place] [phone] 06/13/2024 5:52 AM CDT - 06/14/2024 10:45 AM CDT Hospital Encounter [facility] [address] [place] [phone] Kong Alvares MD Status post total replacement [...] anterior approach; Surgeon: Kong Alvares MD; Location: [facility] Medical devices from this surgery are [...] = 0.6 oz pur e alcohol) monthly [facility] Utilities Answer Date Recorded In the past 12 months has th e [employer], gas, oil, or water [employer] threatened to shut off services in your [...] were you homeless or living in a fpc (including now)? No 06/13/2024 EH IP Custom IPV Answer Date Recorded Do you feel UNSAFE in any of your personal relationships with your family members or any other acquaintances? 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 Gender Identity Female 06/11/2024 11:55 AM [...] 60-74 years 1-dose series) 2021 COVID-19 Vaccine (2023-2 5 season) 2024 Influenza Vaccine Seasonal (Standing [...] this topic Medical Devices Implanted Type Area Air Grinder Device Identifier Shelf Expiration Date Model / Serial / Lot [place] Hole Eliminator Ps - [id number] Implanted:Qty: 1 on 06/13/2024 by Kong Alvares MD at [facility] Right: Hip DEPUY [id number] 03/02/2034 0 / NA / [id number] Cup Acet 52mm [place] Sector Ii - [id number] Implanted:Qty: 1 on 06/13/2024 by Kong Alvares MD at [facility] Right: Hip DEPUY [id number] 04/02/2034 2 / NA / [id number] Screw Bone [place] Cancellous 6.5x25mm - [id number] Implanted:Qty: 1 on 06/13/2024 by Kong Alvares MD at [facility] Right: Hip DEPUY [id number] 01/31/2034 0 / NA / [id number] Liner Acet Altrx 36mm X 52mm Neutral - [id number] Implanted:Qty: 1 on 06/13/2024 by Kong Alvares MD at [facility] Right: Hip DEPUY [id number] 04/02/2029 2 / NA / [id number] Screw Bone Cancellous 6.5mm X 35mm - [id number] Implanted:Qty: 1 on 06/13/2024 by Kong Alvares MD at [facility] Right: Hip DEPUY [id number] 12/01/2033 0 / NA / [id number] Stem Femoral Actis Duofix Sz 3 - [id number] Implanted:Qty: 1 on 06/13/2024 by Kong Alvares MD at [facility] Right: Hip DEPUY [id number] 03/02/2034 1010-07-06 0 / NA / [id number] Head Femoral Biolox Delta Sz 36 +1.5mm - [id number] Implanted:Qty: 1 on 06/13/2024 by Kong Alvares MD at [facility] Right: Hip DEPUY [id number] 04/02/2029 0 / NA / [id number] Procedures Procedure Name Priority Date/Time Associated Diagnosis [...] disease of right hip M16.11 Case Notes Depkhurram jeff from Last 3 Months Results * (ABNORMAL) HEMOGLOBIN (06/14/2024 7:17 AM CDT) HGB 9.7(L) 12.0 - 16.0 g/dl 06/14/2024 7:31 AM CDT [facility] Blood BLOOD SPECIMEN / Unknown Venipuncture / Unknown 06/14/2024 7:17 AM CDT 06/14/2024 7:27 AM CDT us Kong Alvares MD EC HEMATOLOGY ORDERABLES Final Result [facility] [address] [phone] * XR HIP RIGHT 2 OR 3 [...] 8:33 AM CDT Klever Coleman APRN, CRNA 06/13/2024 8:33 AM Airway Date/Time: 06/13/2024 8:33 AM Urgency: [...] Final Result from Last 3 Months Insurance [facility] [place] [facility] Commercial Address: [facility] [address] [place] [address] Advance Directives For more information, please contact: [phone] Documents on File Type Date Recorded Patient Quality Systems Specialist Expl anation Advance Directive - RV 06/13/2024 2:56 PM Advance Directive * Full Code (Latest Code Status on File) Date Activated Date Inactivated Comments 06/13/2024 6:10 AM 06/14/2024 3:07 PM Care Teams Administrative And Program Specialist Relationship Specialty Start Date End Date Elsewhere, Pcp PCP - General 06/10/24
--- OUTSIDE RECORDS SUMMARY | 2024-08-06 08:08 | XMS_ITS | Encounter Summary ---
Author Organization [facility] Address [address] [address] Phone Care Team Providers Care Piledriver Carpenter Name Role Phone Elsewhere, Pcp Primary Care Provider Unavailabl e Reason for Visit * Reason Onset Date Comments Pre-Procedure Call 06/10/2024 * Auth/Cert (Routine) Specialty Diagnoses / Procedures Referred By Vickie zuniga Referred To Contact Diagnoses Degenerative joint disease of right hip M16.11 Procedures TOTAL HIP REPLACEMENT Right total hip arthroplasty direct anterior approach Kai Carrillo MD [facility] [address] [address] Phone: tel: fax: Referral ID Status Reason Start Date Expiration Date Visits Re quested Visits Authorized [id number] 1 1 Encounter Details Date Type Department Care Team (Late st Contact Info) Description 06/13/2024 8:15 AM CDT - 06/13/2024 11:45 AM CDT Surgery [facility] OR [address] [place] [phone] Kai Carrillo MD [facility] [address] [address] Right total hip arthroplasty direct anterior approach Surgery Details Date/Time Status Location OR Service Patient Class Case Class Case Type Trauma Case? 06/13/2024 8:15 AM Posted [facility] 06 Orthopedic AM Admit - [...] = 0.6 oz pur e alcohol) monthly [facility] Utilities Answer Date Recorded In the past 12 months has th e [employer], gas, oil, or water [employer] threatened to shut off services in your [...] time in the past 12 m [facility], were you homeless or living in a custodial (including now)? No 06/13/2024 EH IP Custom IPV Answer Date Recorded Do you feel UNSAFE in any of your personal relationships with your family members or any other acquaintances? 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 Follow Up Instructions: Kai Carrillo MD [facility] [address] [place] [address] Go on 07/02/2024 Post-op appointment scheduled with Dr. Carrillo on 07/02/24 at 2:00 PM at the [place] office Mesha Andino PA-C documented in this [...] Means Destination Comment s Home and/or Self Snf documented in this encounter Progress Notes * [...] 61-90 Moderate Dependence 91-99 Slight Dependence 100 Jenkins Score Prediction Less than 40 Unlikely to [...] cues and stand by assist. Patient and motor coach driver were also educated on exit of vehicle [...] minutes with walker and icing every hour [id number] minutes during the day; HEP - 2x/day; [...] precautions following ARVIND. The patient and their motor coach driver have been instructed on safe patient handling [...] Total Treatment Time: 18 minutes Therapeutic Activities (28687) = 10 minutes Gait Training (03934) = 8 minutes * Aracely Gomez PA-C [...] No Length of Stay Plan reviewed;Overnight stay Lead Refiner name & phone number Eloise Saleem [phone] Will your motor coach driver be the one picking you up from [...] Pre-op H&P date 05/19/24 Pre-op H&P location [facility] in [place] How many stairs to enter your home? [...] of Procedure: 06/13/2024 SURGEON KAI CARRILLO M.D. TWO NEEDLE MACHINE OPERATOR Maria Del Carmen Morocho PA-C - Assisting PREOPERATIVE DIAGNOSIS Right hip osteoarthritis, failed to respond to conservative management. POSTOPERATIVE DIAGNOSIS Right hip osteoarthritis, failed to respond to conservative management. TITLE OF PROCEDURE Right total hip arthroplasty, Depuy uncemented components, direct anterior approach. [employer] computerassisted fluoroscopic hip navigation. ANESTHESIA TYPE: General ESTIMATED BLOOD LOSS: 500 mL SPECIMEN(S) No Specimens Collected COMPLICATIONS: none IMPLANT(S): Implant Name Type Inv. Item Serial No. Forge Heater Lot No. LRB No. Used Action APEX HOLE ELIMINATOR PS - [id number] APEX HOLE ELIMINATOR PS NA DEPUY [id number] Right 1 Implanted CUP ACET 52MM PINNACLE SECTOR II - [id number] CUP ACET 52MM PINNACLE SECTOR II NA DEPUY [id number] Right 1 Implanted SCREW BONE PINNACLE CANCELLOUS 6.5X25MM - [id number] SCREW BONE PINNACLE CANCELLOUS 6.5X25MM NA DEPUY [id number] Right 1 Implanted LINER ACET ALTRX 36MM X 52MM NEUTRAL - [id number] LINER ACET ALTRX 36MM X 52MM NEUTRAL NA DEPUY [id number] Right 1 Implanted SCREW BONE CANCELLOUS 6.5MM X 35MM - [id number] SCREW BONE CANCELLOUS 6.5MM X 35MM NA DEPUY [id number] Right 1 Implanted STEM FEMORAL ACTIS DUOFIX SZ 3 - [id number] STEM FEMORAL ACTIS DUOFIX SZ 3 NA DEPUY [id number] Right 1Implanted HEAD FEMORAL BIOLOX DELTA SZ 36 +1.5MM - [id number] HEAD FEMORAL BIOLOX DELTA SZ 36 +1.5MM NA [id number] Right 1 Implanted PROCEDURE The patient was brought to the operating room and after satisfactory anesthesia was placed on the [place] table. The right lower extremity was then prepped and draped in the usual sterile fashion. VelHealthWyseputer assisted fluoroscopic hip navigation was utilized during [...] aid of image intensification. A 52 mm [place] cup was impacted into place in approximately [...] gm of tranexamic acid pre-op. A skilled assistant merchandiser was necessary for this procedure for assistance [...] therapy. Pt's sister Eloise will be her motor coach driver. Pt had her left hip replaced in March 2024 at [facility] Admission Diagnosis: Degenerative joint disease of right [...] independent with all mobility and ADLs Pain: 1-310 Precautions: OI PT hip precaution: No hip [...] balance POD0. Therapeutic Activity: Skilled therapeutic education, mortgage loan counselor and activity modification was providedto patient [...] concerns to note. Patient is appropriate for [facility] led physical therapy services. Barriers to [...] Time: 30 minutes Evaluation Moderate - Complexity (11784) Therapeutic Activities (30934) = 12 minutes Gait Training (13435) = 8 minutes * Brief Op Note - Kai Carrillo MD - 06/13/2024 10:53 AM CDT [facility] Pre-Op Diagnosis: Right hip degenerative joint disease M16.11, CPT: 49603 Post-Op Diagnosis: Same Procedure(s): Right direct anterior total hip arthroplasty Anesthesia Type: General Surgeons and Role: * Kai Carrillo MD - Primary * Maria Del Carmen Morocho PA-C - Assisting Estimated Blood Loss: 500 mL Specimen(s): No Specimens Collected Complications: None Implant(s): Implant Name Type Inv. Item Serial No. Forge Heater Lot No. LRB No. Used Action APEX HOLE ELIMINATOR PS - [id number] APEX HOLE ELIMINATOR PS NA DEPUY [id number] Right 1 Implanted CUP ACET 52MM PINNACLE SECTOR II - [id number] CUP ACET 52MM PINNACLE SECTOR II NA DEPUY [id number] Right 1 Implanted SCREW BONE PINNACLE CANCELLOUS 6.5X25MM - [id number] SCREW BONE PINNACLE CANCELLOUS 6.5X25MM NA DEPUY [id number] Right 1 Implanted LINER ACET ALTRX 36MM X 52MM NEUTRAL - [id number] LINER ACET ALTRX 36MM X 52MM NEUTRAL NA DEPUY [id number] Right 1 Implanted SCREW BONE CANCELLOUS 6.5MM X 35MM - [id number] SCREW BONE CANCELLOUS 6.5MM X 35MM NA DEPUY [id number] Right 1 Implanted STEM FEMORAL ACTIS DUOFIX SZ 3 - [id number] STEM FEMORAL ACTIS DUOFIX SZ 3 NA DEPUY [id number] Right 1Implanted HEAD FEMORAL BIOLOX DELTA SZ 36 +1.5MM - [id number] HEAD FEMORAL BIOLOX DELTA SZ 36 +1.5MM NA [id number] Right 1 Implanted Plan: DC home POD1 [...] on 07/02/24 at 2:00 PM at the [place] office Patient's goals after surgery: less pain Patient's concerns with upcoming surgery: none H&P Patient's pre-operative history and physical with their primary care physician was reviewed. From that, the following should be noted: -HTN, CAD, psoriatic arthritis (holding humira currently), untreated CADENCE (AHI 13 from 2016), GERD, anxiety -s/p [facility] 03/20/24 at [facility]. No complications per patient. [...] Prior to Admission Medications:*was not approved for [facility] Patient will continue the following medications: atorvastatin, [...] time of discharge between 9:00AM-12:00PM with their personal driver arriving by 8:00 AM Dining Room Attendant: Eloise saleem Discharge location: home Anticipated Home Health Services: None Lead Refiner/Family member available after discharge: Niece will stay with patient first 2 nights (was notpresent for this discussion) Post-operative medication plan and education was discussed Patient's medication dosing and sig for the above medications to be determined post-operatively. In the event of a concern arising after surgery, the patient was provided with the following information: During business hours, call surgeon's medicare contact specialist, Marysol Ghotra at [phone]. After business hours, call the on-call provider at [phone]. [facility] was discussed. They [...] Assistive Devices Page 17/51 They understand their motor coach driver should bring their assistive device to their [...] is not an outpatient pharmacy at the [facility] and they will need to machine operator hop picker their post-operative medications at a pharmacy [...] of surgery after arriving at the [facility]. Avoiding a Delayed Surgery Page 10 I gave them this reference to use between now and surgery to avoid their surgery being delayed or cancelled. Adamaris Villa PA-C [facility] documented in this encounter Plan of [...] - 16.0 g/dl 06/14/2024 7:31 AM CDT [facility] Blood BLOOD SPECIMEN / Unknown Venipuncture / Unknown 06/14/2024 7:17 AM CDT 06/14/2024 7:27 AM CDT us Kai Carrillo MD EC HEMATOLOGY ORDERABLES Final Result [facility] [address] [place] [address] * XR HIP RIGHT 2 OR 3 [...] MD Report Date: 06/13/2024 12:29 PM us Kai Carrillo MD [facility] DIAGNOSTIC IMAGING ORDERABL [...] dose on Sun06/14/24 at 0900, Until Discontinued 815 (Given - [...] 0814 (Given - Provider: Klever Coleman APRN, TECHNOLOGY TRAINING ASSOCIATE) ceFAZolin (ANCEF) 2 g in dextrose 4% [...] dose on Sun06/13/24 at 2000, Until Discontinued 204 (Given - Provider: Lucy Polk RN) 0819 [...] Olmos, ANUM) 0532 (Given - Provider: Rachel Olmos, ANUM) tranexamic acid (Cyklokapron) 1000 mg in sodium [...] Until 06/14/24 at 1502, Respiratory Depression, Other, FOOD OR BAGGAGE HANDLING RAMPMAN depression ondansetron (Zofran ODT) disintegrating tablet 4 [...] Laura Greer RN)2047 (Given - Provider: Lucy Polk RN) 0537 [...] 06/13/2024 documented in this encounter Care Teams Piledriver Carpenter Relationship Specialty Start Date End Date Elsewhere, Pcp PCP - General 06/10/24 documented as of this encounter
--- OUTSIDE RECORDS SUMMARY | 2024-08-06 08:08 | XMS_ITS | Encounter Summary ---
Author Organization [place] Address [address] 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 Provider Outside LAB - BLOOD ORDERABLES Edited [employer] [facility] PFT NON-INTERFACED (ONBASE SCANS) * (ABNORMAL) CRP inflammation (01/07/2024 2:50 PM CDT) Pathologist [facility] CRP Inflammation (External) <0.5(L) 0.5 - 1.0 mg/dL NON-INTERFACE D (ONBASE SCANS) Blood BLOOD SPECIMEN / Unknown 01/07/2024 2:50 PM CDT Narrative [facility] - 01/07/2024 2:50 PM CDT Verified by Carmella Munroe on 01/25/2024. Provider Outside LAB - BLOOD ORDERABLES Edited [employer] BREEZE PFT NON-INTERFACED (ONBASE SCANS) * TSH (01/07/2024 2:50 PM CDT) Pathologist [facility] TSH (External) 2.290 0.270 - 4.200 uIU/mL [...] on filedocumented in this encounter Care Teams Bowling Alley Operator Relationship Specialty Start Date End Date Yamila Dave PA-C [facility] [address] [place] [address] PCP - General Physician Caisson Worker 04/14/20 Chadwick Jensen NP [address] [address] Nurse Practitioner Cardiovascular Disease 11/15/22 Chadwick Jensen NP [address] [address] Assigned Heart and Vascular Provider 08/25/23 02/23/24 Rahul Ford MD Cardiovascular Disease 01/24/24 Rahul Ford MD Assigned Heart and Vascular Provider 02/24/24 documented as of this encounter
--- OUTSIDE RECORDS SUMMARY | 2024-08-06 08:08 | XMS_ITS | Encounter Summary ---
Author Organization [facility] Address [address] [address] Phone Care Team Providers Care Apprenticeship Consultant Name Role Phone Elsewhere, Pcp Primary Care [...] Legal Sex Female 11:05 PM SOFTWARE QUALITY SPECIALIST Gender Identity Female 06/11/2024 11:55 AM CDT Sexual Orientation Straight 06/11/2024 11 :55 AM CDT documented as of this encounter Plan of Treatment Not on file documented as of this encounter Visit Diagnoses Not on filedocumented in this encounter Care Teams Apprenticeship Consultant Relationship Specialty Start Date End Date Elsewhere, Pcp PCP - General 06/10/24 documented as of this encounter
--- OUTSIDE RECORDS SUMMARY | 2024-08-06 08:08 | XMS_ITS | Encounter Summary ---
Author Organization [place] Address [address] [facility] [place] [address] Care Team Providers Care Robotic Technician Name Role Phone Yamila Dave PA-C Primary Care Provider Chadwick Jensen NP Unavailable [phone] Rahul Ford MD Unavailable Un available Rahul [...] PM CDT Legal Sex Female 7:41 PM CONSTRUCTION PROJECT COORDINATOR Gender Identity Female 04/22/2020 2:54 PM CDT Sexual Orientation Straight 04/22/2020 2: 54 PM CDT documented as of this encounter Plan of Treatment Not on file documented as of this encounter Visit Diagnoses Not on filedocumented in this encounter Care Teams Robotic Technician Relationship Specialty Start Date End Date Yamila Dave PA-C [facility] [address] [place] [address] - [address] Physician [address] Recording Monitor 04/14/20 Chadwick Jensen NP [address] [place] [address] Nurse Practitioner Cardiovascular Disease 11/15/22 Rahul Ford MD MD Cardiovascular Disease 01/24/24 Rahul Ford MD Assigned Heart and Vascular Provider 02/24/24 documented as of this encounter
--- OUTSIDE RECORDS SUMMARY | 2024-08-06 08:08 | XMS_ITS | Referral Summary ---
Author Organization [place] Address [address] [facility] 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,Palpitat ions Take 1 tablet (40 mg) by mouth daily 90 tablet 3 2 Active losartan (COZAAR) 100 MG tabletIndications :Benign essential hypertension Take 1 tablet (100 mg) by mouth daily 90 tablet 3 Active metoprolol tartrate (LOPRESSOR) 25 MG tabletIndications :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 angina pectoris,Palpitat ions Take 1 [...] PM CDT 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 Gender Identity Female 04/22/2020 2:54 PM CDT Sexual Orientation Straight 04/22/2020 2: 54 PM CDT Last Filed Vital Signs Vital Sign Reading Time Taken Comments Blood Pressure 129/70 03/21/2024 7:43 AM CDT Pulse 83 03/21/2024 7:43 AM CDT Temperature 37.2 C (99 F) 03/21/2024 7:43 AM CDT Respiratory Rate 16 03/21/2024 7:43 AM CDT Oxygen Saturation 95% 03/21/2024 7:43 AM CDT Inhaled Oxygen Concentration - - Weight 88.2 kg (194 lb 7.1 oz) 03/20/2024 11:45 AM CDT Height 160 cm (5' 3) 03/20/2024 6:12 AM CDT Body Mass Index 34.44 03/20/2024 6:12 AM CDT Plan of Treatment Not on file Medical Devices Implanted Type Area Specialist Field Engineer Device Identifier Shelf Expiration Date Model / Serial / Lot Imp Almyra Hole Eliminator Hip Depuy Duraloc 1246-03-000 - [id number] Implanted:Qty : 1 on 03/20/2024 by Kong Diop MD at [facility] Metallic Hardware/An chor Left: Hip [employer] [id number] 01/31/2034 [id number] / / [id number] Imp Scr Bone Can Jose 6.5x35mm 1217-35-500 - [id number] Implanted:Qty : 1 on 03/20/2024 by Kong Diop MD at [facility] Metallic Hardware/An chor Left: Hip [employer] [id number] 10/31/2032 [id number] / / [id number] Imp Scr Bone Can Jose 6.5x20mm 1217--500 - [id number] Implanted:Qty : 1 on 03/20/2024 by Kong Diop MD at [facility] Metallic Hardware/An chor Left: Hip [employer] [id number] 12/31/2033 [id number] / / [id number] Imp Cup Jose Navarro 52mm 1217-22-052 - [id number] Implanted:Qty : 1 on 03/20/2024 by Kong Diop MD at [facility] Total Joint Component/I nsert Left: Hip [employer] [id number] 12/31/2033 [id number] / / [id number] Imp Insert Hip Depuy Navarro Altrx [id number] 1221-36-05 - [id number] Implanted:Qty : 1 on 03/20/2024 by Kong Diop MD at [facility] Total Joint Component/I nsert Left: Hip [employer] [id number] 01/01/2028 1221-36-052 / / [id number] Imp Stem Fem Depuy Actis Collar Hi-Offset Sz 2mm - [id number] Implanted:Qty : 1 on 03/20/2024 by Kong Diop MD at [facility] Total Joint Component/I nsert Left: Hip [employer] [id number] / / Imp Head Femoral Depuy Ceramic 36mm +1.5mm 1365-36-310 - [id number] Implanted:Qty : 1 on 03/20/2024 by Kong Diop MD at [facility] Total Joint Component/I nsert Left: Hip [employer] [id number] 12/31/2028 [id number] / / [id number] Procedures Procedure Name Priority Date/Time Associated Diagnosis Comments GLUCOSE STAT 03/20/2024 7:11 AM CDT LIPID REFLEX TO DIRECT LDL PANEL Routine 01/29/2024 8:56 AM CDT 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 1st floor, [address] [place] [address], [place]UST [phone] * (ABNORMAL) Lipid panel reflex to direct [...] - 01/29/2024 1:40 PM CDT Cholesterol Desirable: <200 mg/dL Triglycerides Normal: Less than 150 mg/dL Borderline High: 150-199 mg/dL High: 200-499 mg/dL Very High: Greater than or equal to 500 mg/dL Direct Measure HDL Female: Greater than or equal to 50 mg/dL Male: Greater than or equal to 40 mg/dL LDL Cholesterol Desirable: <100mg/dL Above Desirable: 100-129 mg/dL Borderline High: 130-159 mg/dL High: 160-189 mg/dL Very High: >= 190 mg/dL Non HDL Cholesterol Desirable: 130 mg/dL Above Desirable: 130-159 mg/dL Borderline High: 160-189 mg/dL High: 190-219 mg/dL Very High: Greater than or equal to 220 mg/dL us Chadwick Jensen NP LAB - BLOOD ORDERABLES Final Result LABORATORY [facility] Core Lab [address], [address] [place] [address] LABOR[facility] Acute Care Lab [address] Lab (1st floor, no room number) [place] [address] * Basic metabolic panel (01/29/2024 8:56 AM CDT) [facility] Sodium 141 135 - 145 mmol/L 01/29/2024 [...] NP LAB - BLOOD ORDERABLES Final Result [facility] LABORATORY [facility] Acute Care Lab [address] Lab (1st floor, no room number) [place] [address] * Mammogram - HIM Scan (08/24/2020) Negative Anatomical Region Laterality Modality Other us Provider Outside IMG MAMMOGRAPHY ORDERABLES Danyelle l Result from Last 3 Months or Most Recently Relevant to Health Maintenance Insurance [facility] [employer] Advance Directives For more information, please contact: [phone] Documents on File Type Date Recorded Patient Head Gauge Unit Operator Expl anation Advance Directives and Living Will [...] Song Son Health Care Agent Care Teams Business Change Manager Relationship Specialty Start Date End Date Yamila Dave PA-C [facility] [address] [place] [address] PCP - General Physician Fisher Eel Spear 04/14/20 Chadwick Jensen NP [address] [place] [address] Nurse Practitioner Cardiovascular Disease 11/15/22 Rahul Ford MD Cardiovascular Disease 01/24/24 Rahul Ford MD Assigned Heart and Vascular Provider 02/24/24
--- OUTSIDE RECORDS SUMMARY | 2024-08-06 08:08 | XMS_ITS | Encounter Summary ---
Author Organization [place] Address [facility] [place] [address] Care Team Providers Care A P Supervisor Name Role Phone Yamila Dave PA-C Primary Care Provider Alo Steel PA-C Unavailable Rahul Ford MD Unavailable Un available Chadwick Jensen NP Unavailable [phone] Chadwick Jensen NP Unavailable [phone] Chadwick Jensen NP Unavailable [phone] Rahul Ford MD Unavailable Un available Rahul [...] PM CDT Legal Sex Female 7:41 PM REHABILITATION PROGRAM COORDINATOR Gender Identity Female 04/22/2020 2:54 PM CDT Sexual Orientation Straight 04/22/2020 2: 54 PM CDT documented as of this encounter Plan of Treatment Not on file documented as of this encounter Visit Diagnoses Not on filedocumented in this encounter Care Teams A P Supervisor Relationship Specialty Start Date End Date Yamila Dave PA-C [facility] [address] [place] [address] PCP - General Physician Powder And Primer Canning Leader 04/14/20 Alo Steel PA-C [address] [place] [address] Assigned Heart and Vascular Provider 11/17/20 01/22/21 Rahul Ford MD [address] [place] [address] Assigned Heart and Vascular Provider 01/23/21 03/02/23 Chadwick Jensen NP [address] [place] [address] Nurse Practitioner Cardiovascular Disease 11/15/22 Chadwick Jensen NP [address] [place] [address] Assigned Heart and Vascular Provider 03/03/23 08/17/23 Chadwick Jensen NP [address] [place] [address] Assigned Heart and Vascular Provider 08/25/23 02/23/24 Rahul Ford MD Assigned Heart and Vascular Provider 08/18/23 08/24/23 Rahul Ford MD MD Cardiovascular Disease 01/24/24 Rahul Ford MD Assigned Heart and Vascular Provider 02/24/24 documented as of this encounter
--- OUTSIDE RECORDS SUMMARY | 2024-08-06 08:08 | XMS_ITS | Clinical Summary ---
Author Organization [facility] Address [address] [place] [address] Care Team Providers Care Filemaker Developer Name Role Phone Mildred Drake MD Primary Care Provider [phone] Allergies Active Allergy Reactions Criticality Noted Date [...] Next Due >=3 YRS QUAD MULTIDOSE VIAL (26438) FLU CLINIC 05/31/2015 Influenza 06/03/2017, 6,06/09/2014, 013,07/04/2012,05/06/2009,07/01/2007 TDAP 05/06/2009 Family History Medical History Relation Comments Cancer Father prostate Heart Disorder Father AAA. 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 Gender Identity Not on file Sexual Orientation Not on file Last Filed Vital Signs Vital Sign Reading Time Taken Comments Blood Pressure 142/94 03/18/2018 12:42 PM CDT Pulse 84 03/18/2018 12:42 PM CDT Temperature 36.6 C (97.9 F) 03/18/2018 12:42 PM CDT Respiratory Rate 16 03/18/2018 12:42 PM CDT [...] Associated Diagnosis Comments RANDA SCREEN MAMMOGRAM, DIGITAL ([id number]) Routine 01/31/2018 5:10 PM CDT Encounter for screening mammogram for malignant neoplasm of breast from Last 3 Months or Most Recently Relevant to Health Maintenance Results * RANDA SCREEN MAMMOGRAM, DIGITAL ([id number]) (01/31/2018 5:10 PM CDT) Anatomical Region Laterality Modality Breast Bilateral Mammography 02/01/2018 3:21 PM CDT Narrative 02/01/2018 3:24 PM CDT DATE OF SERVICE: 01.31.2018 BILATERAL SCREENING MAMMOGRAM WITH CAD WITH TOMOSYNTHESIS CLINICAL INDICATION: Screening mammogram. AGE: 57 years. COMPARISON: 2016, 2015, 2014, 2013, 2012 TECHNIQUE: Bilateral screening digital mammographic views with tomosynthesis. Images were checked with the TV Volume Wizard App CAD system. FINDINGS: The breasts are heterogeneously dense, which may obscure small masses. There are no suspicious findings present in either breast. IMPRESSION AND RECOMMENDATION: No mammographic evidence of malignancy. If there is no palpable concern, the patient should return in 1 year for annual screening mammography. Breast cancer risk assessment was performed. The patient's breast cancer risk assessment score does not meet the threshold for the high risk category. BI-RADS Final Assessment Category 1: Negative Management Recommendation: Routine screening mammography. This was interpreted by Raissa Gray M.D. Mildred Drake MD RIS MAMMO Final Result from Last 3 Months or Most Recently Relevant to Health Maintenance Insurance [employer] (Work) [address] [place] [address] (Work) [address] [place] [address] (Work) [address] [place] [address] Care Teams Filemaker Developer Relationship Specialty Start Date End Date Mildred Drake MD [address] [facility] [place] [id number] PCP - General Family Practice 10/08/12
--- OUTSIDE RECORDS SUMMARY | 2024-08-06 08:08 | XMS_ITS | Encounter Summary ---
Author Organization [place] Address [address] [place] [address] Care Team Providers Care Bull Chain Operator Name Role Phone Yamila Dave PA-C Primary Care Provider Rahul Ford MD Unavailable Un available Chadwick Jensen NP Unavailable [phone] Chadwick Jensen NP Unavailable [phone] Chadwick Jensen NP Unavailable [phone] Rahul Ford MD Unavailable Un available Rahul Ford MD Unavailable Un available Rahul Ford MD Unavailable Un available Encounter Details Date Type Department Care Team (Late st Contact Info) Description 04/19/2022 External Order Results Self [facility] [address] [place] [address] Outside, Provider Social History Tobacco Use Types Packs/Day Years Used Date Smoking Tobacco: Never Smokeless Tobacco: Never Alcohol Use Standard Drinks/Week Comments Yes 0 (1 standard drink = 0.6 oz pur e alcohol) rare occasion Comments No Sex and Gender Information Value Date Recorded Sex Assigned at Female 04/22/2020 2:54 PM CDT 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 us Provider Outside LAB - BLOOD ORDERABLES Edited R esult - Final ABELARDO PFT NON-INTERFACED (ONBASE SCANS) * CBC with platelets (04/19/2022 12:00 PM CDT) Pathologist [facility] Hematocrit (External) 37.9 33.0 - 51.0 % [...] Outside LAB - BLOOD ORDERABLES Edited R Pony Zero [facility] Performing Organization Address [facility] Co de Phone Number BREEZE PFT [...] Provider Outside LAB - BLOOD ORDERABLES Edited Social [facility] Performing Organization Address City/[facility]/ZIP Co de Phone Number BREEZE PFT NON-INTERFACED (ONBASE SCANS) documented in this encounter Visit Diagnoses Not on filedocumented in this encounter Care Teams Bull Chain Operator Relationship Specialty Start Date End Date Yamila Dave PA-C [facility] [address] [place] [address] PCP - General Physician Automation And Controls Manager 04/14/20 Rahul Ford MD [facility] [address] [place] [address] Assigned Heart and Vascular Provider 01/23/21 03/02/23 Chadwick Jensen NP [address] [address] Nurse Practitioner Cardiovascular Disease 11/15/22 Chadwick Jensen NP [address] [address] Assigned Heart and Vascular Provider 03/03/23 08/17/23 Chadwick Jensen NP [address] [address] Assigned Heart and Vascular Provider 08/25/23 02/23/24 Rahul Ford MD Assigned Heart and Vascular Provider 08/18/23 08/24/23 Rhaul Ford MD MD Cardiovascular Disease 01/24/24 Rahul Ford MD Assigned Heart and Vascular Provider 02/24/24 documented as of this encounter
--- OUTSIDE RECORDS SUMMARY | 2024-08-06 08:08 | XMS_ITS | Encounter Summary ---
Author Organization [facility] Address [address] [address] Phone Care Team Providers Care Biometric Fingerprinting Technician Name Role Phone Elsewhere, Pcp Primary Care Provider Unavailabl e Encounter Details Date Type Department Care Team (Latest Contact Info) Description 06/13/2024 Travel Social History Tobacco Use Types Packs/Day Years Used Date Smoking Tobacco: Never Passive Smoke Exposure: Past Smokeless Tobacco: Never Alcohol Use Standard Drinks/Week Comments Yes 0 (1 standard drink = 0.6 oz pur e alcohol) monthly [facility] Utilities Answer Date Recorded In the [...] any time in the past 12 m [facility], were you homeless or living in a custodial (including now)? No 06/13/2024 EH IP Custom IPV Answer Date Recorded Do you feel UNSAFE in any of your personal relationships with your family members or any other acquaintances? 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
--- OUTSIDE RECORDS SUMMARY | 2024-08-06 08:08 | XMS_ITS | Referral Summary ---
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 Gender Identity Not on file Sexual Orientation [...] Date Author No 01/17/2018 8:00 AM CDT Ruth AnnDorie oliveros Plan of Treatment Not on file Procedures Procedure Name Priority Date/Time Associated Diagnosis Comments RANDA SCREEN MAMMOGRAM, DIGITAL ([id number]) Routine 01/31/2018 5:10 PM CDT Encounter for screening mammogram for malignant neoplasm of breast from Last 3 Months or Most Recently Relevant to Health Maintenance Results * RANDA SCREEN MAMMOGRAM, DIGITAL ([id number]=[id number]) (01/31/2018 5:10 PM CDT) Anatomical Region Laterality Modality Breast Bilateral Mammography 02/01/2018 3:21 PM CDT Narrative 02/01/2018 3:24 PM CDT DATE OF SERVICE: 01.31.2018 BILATERAL SCREENING MAMMOGRAM WITH CAD WITH TOMOSYNTHESIS CLINICAL INDICATION: Screening mammogram. AGE: 57 years. COMPARISON: 2016, 2015, 2014, 2013, 2012 TECHNIQUE: Bilateral screening digital mammographic views with tomosynthesis. Images were checked with the PeerIndex CAD system. FINDINGS: The breasts are heterogeneously [...] Most Recently Relevant to Health Maintenance Insurance [employer] (Work) [address] [phone] (Work) [address] [phone] (Work) [address] [id number] Care Teams Wide Area Network Systems Administrator Relationship Specialty Start Date End Date Mildred Drake MD [address] [place] [id number] PCP - General Family Practice 10/08/12
--- OUTSIDE RECORDS SUMMARY | 2024-08-06 08:08 | XMS_ITS | Encounter Summary ---
Author Organization [facility] Address [address] [address] Phone Care Team Providers Care Advanced Manufacturing Vice President Name Role Phone Elsewhere, Pcp Primary Care Provider Unavailabl e Encounter Details Date Type Department Care Team (Late st Contact Info) Description 06/13/2024 11:05 AM CDT Ancillary Procedure [facility] [address] [place] [address] Social History Tobacco Use Types Packs/Day Years Used Date Smoking Tobacco: Never Passive Smoke Exposure: Past Smokeless Tobacco: Never Alcohol Use Standard Drinks/Week Comments Yes 0 (1 standard drink = 0.6 oz pur e alcohol) monthly [facility] Utilities Answer Date Recorded In the past [...] any time in the past 12 m [facility], were you homeless or living in a prison (including now)? No 06/13/2024 EH IP Custom IPV Answer Date Recorded Do you feel UNSAFE in any of your personal relationships with your family members or any other acquaintances? 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
--- OUTSIDE RECORDS SUMMARY | 2024-08-06 08:08 | XMS_ITS | Encounter Summary ---
Author Organization [place] Address [address] [facility] [place] [address] Care Team Providers Care Cna Caregiver Name Role Phone Yamila Dave PA-C Primary Care Provider Rahul Ford MD Unavailable Un available Steel, Tressakalina Graves PA-C Unavailable [phone] Rahul Ford MD Unavailable Un available hCadwick Jensen HISTORIC INTERPRETER Unavailable [phone] Chadwick Jensen HISTORIC INTERPRETER Unavailable [phone] Chadwick Jensen HISTORIC INTERPRETER Unavailable [phone] Rahul Ford MD Unavailable Un available Rahul Ford MD Unavailable Un available Rahul Ford MD Unavailable Un available Encounter Details Date Type Department Care Team (Late st Contact Info) Description 09/23/2020 [facility] [place] [id number] [place] [address] [address] [place] [address] Rahul Ford MD Social History Tobacco Use Types Packs/Day Years Used Date Smoking Tobacco: Never Smokeless Tobacco: Never Alcohol Use Standard Drinks/Week Comments Yes 0 (1 standard drink = 0.6 oz pur e alcohol) rare occasion Comments Unknown Sex and Gender Information Value Date Recorded Sex Assigned at Female 04/22/2020 2:54 PM CDT 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 No / Unsure 09/20/2020 7:44 AM BAG FILLER documented as of this encounter Plan of Treatment Not on file documented as of this encounter Visit Diagnoses Not on filedocumented in this encounter Care Teams Cna Caregiver Relationship Specialty Start Date End Date Yamila Dave PA-C [facility] [address] [place] [address] PCP - General Physician Curtain Stretcher 04/14/20 Rahul Ford MD Assigned Heart and Vascular Provider 06/25/20 11/16/20 Alo Steel PA-C [address] [address] Assigned Heart and Vascular Provider 11/17/20 01/22/21 Rahul Ford MD [address] [address] Assigned Heart and Vascular Provider 01/23/21 03/02/23 Chadwick Jensen NP [address] [address] Nurse Practitioner Cardiovascular Disease 11/15/22 Chadwick Jensen NP [address] [address] Assigned Heart and Vascular Provider 03/03/23 08/17/23 Chadwick Jensen NP [address] [address] Assigned Heart and Vascular Provider 08/25/23 02/23/24 Rahul Ford MD Assigned Heart and Vascular Provider 08/18/23 08/24/23 Rahul Ford MD MD Cardiovascular Disease 01/24/24 Rahul Ford MD Assigned Heart and Vascular Provider 02/24/24 documented as of this encounter
--- OUTSIDE RECORDS SUMMARY | 2024-08-06 08:08 | XMS_ITS | Encounter Summary ---
Author Organization [place] Address [address] [facility] 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 Gender Identity Female 04/22/2020 2:54 PM CDT Sexual Orientation Straight 04/22/2020 2: 54 PM CDT documented as of this encounter Plan of Treatment Not on file documented as of this encounter Visit Diagnoses Not on filedocumented in this encounter Care Teams Vending Machine Servicer Relationship Specialty Start Date End Date Yamila Dave PA-C [facility] [address] [place] [address] PCP - General Physician Dependency Case Manager 04/14/20 Chadwick Jensen NP [address] [place] [address] Nurse Practitioner Cardiovascular Disease 11/15/22 Rahul Ford MD MD Cardiovascular Disease 01/24/24 Rahul Ford MD Assigned Heart and Vascular Provider 02/24/24 documented as of this encounter
--- OUTSIDE RECORDS SUMMARY | 2024-08-06 08:08 | XMS_ITS | Encounter Summary ---
Author Organization [place] Address [facility] 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 Gender Identity Female 04/22/2020 2:54 PM CDT [...] on filedocumented in this encounter Care Teams Job Developer Relationship Specialty Start Date End Date Yamila Dave PA-C [facility] [address] [address] PCP - General Physician Motor And Chassis Inspector 04/14/20 Alo Steel PA-C [address] [place], [place] [address] Assigned Heart and Vascular Provider 11/17/20 01/22/21 Rahul Ford MD [address] [place] [address] Assigned Heart and Vascular Provider 01/23/21 03/02/23 Chadwick Jensen NP [address] [place] [address] Nurse Practitioner Cardiovascular Disease 11/15/22 Chadwick Jensen NP [address] [place] [address] Assigned Heart and Vascular Provider 03/03/23 08/17/23 Chadwick Jensen NP [address] [place] [address] Assigned Heart and Vascular Provider 08/25/23 02/23/24 Rahul Ford MD Assigned Heart and Vascular Provider 08/18/23 08/24/23 Rahul Ford MD MD Cardiovascular Disease 01/24/24 Rahul Ford MD Assigned Heart and Vascular Provider 02/24/24 documented as of this encounter
--- OUTSIDE RECORDS SUMMARY | 2024-08-06 08:08 | XMS_ITS | Clinical Summary ---
Author Organization [place] Address [address] [facility] 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,Palpitat ions Take 1 tablet (40 mg) by mouth daily 90 tablet 3 2 Active losartan (COZAAR) 100 MG tabletIndications :Benign essential hypertension Take 1 tablet (100 mg) by mouth daily 90 tablet 3 Active metoprolol tartrate (LOPRESSOR) 25 MG tabletIndications :Coronary artery disease involving chickahominy indian tribe coronary artery of chickahominy indian tribe heart without angina pectoris,Palpitat ions Take 1 [...] PM CDT Legal Sex Female 7:41 PM 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 Gender Identity Female 04/22/2020 2:54 PM CDT [...] 04/23/2029 04/23/2019, 05/06/2009 ZOSTER IMMUNIZATION Completed 07/25/2020, PHQ-2 (once per calendar year) Completed 01/30/2024, [...] this topic Medical Devices Implanted Type Area Clinical Laboratory Aide Device Identifier Shelf Expiration Date Model / Serial / Lot Imp [place] Hole Eliminator Hip Depuy Duraloc 1246-03-000 - [id number] Implanted:Qty : 1 on 03/20/2024 by Kong Doip MD at [facility] Metallic Hardware/An chor Left: Hip [employer] [id number] 01/31/2034 [id number] / / [id number] Imp Scr Bone Can Jose 6.5x35mm 1217-35-500 - [id number] Implanted:Qty : 1 on 03/20/2024 by Kong Diop MD at [facility] Metallic Hardware/An chor Left: Hip [employer] [id number] 10/31/2032 [id number] / / [id number] Imp Scr Bone Can Jose 6.5x20mm 1217--500 - [id number] Implanted:Qty : 1 on 03/20/2024 by Kong Diop MD at [facility] Metallic Hardware/An chor Left: Hip [employer] [id number] 12/31/2033 [id number] / / [id number] Imp Cup Jose Austin 52mm 1217-22-052 - [id number] Implanted:Qty : 1 on 03/20/2024 by Kong Diop MD at [facility] Total Joint Component/I nsert Left: Hip [employer] [id number] 12/31/2033 [id number] / / [id number] Imp Insert Hip Depuy Austin Altrx 64x56ut 1221-36-052 - [id number] Implanted:Qty : 1 on 03/20/2024 by Kong Diop MD at [facility] Total Joint Component/I nsert Left: Hip [employer] [id number] 01/01/2028 1221-36-052 / / [id number] Imp Stem Fem Depuy Actis Collar Hi-Offset Sz 2mm 101020 - [id number] Implanted:Qty : 1 on 03/20/2024 by Kong Diop MD at [facility] Total Joint Component/I nsert Left: Hip [employer] [id number] / / Imp Head Femoral Depuy Ceramic 36mm +1.5mm 1365-36-310 - [id number] Implanted:Qty : 1 on 03/20/2024 by Kong Diop MD at [facility] Total Joint Component/I nsert Left: Hip [employer] [id number] 12/31/2028 [id number] / / [id number] Procedures Procedure Name Priority Date/Time Associated Diagnosis Comments GLUCOSE STAT 03/20/2024 7:11 AM CDT LIPID REFLEX TO DIRECT LDL PANEL Routine 01/29/2024 8:56 AM CDT Coronary artery disease 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 1st floor, [address] [place] [address], [facility] [phone] * (ABNORMAL) Lipid panel reflex to direct [...] NP LAB - BLOOD ORDERABLES Final Result [facility] [place] [facility] [address] [facility], [address] [place] [address] LAB[facility] Acute Care Lab [address] [facility] Lab (1st floor, no room number) [place] [address] * Basic metabolic panel (01/29/2024 8:56 AM CDT) [facility] Sodium 141 135 - 145 mmol/L 01/29/2024 [...] LAB - BLOOD ORDERABLES Final Result LABORATORY [facility] Acute Care Lab [address] Lab (1st floor, no room number) [place] [address], [facility] * Mammogram - HIM Scan (08/24/2020) Negative Anatomical Region Laterality Modality Other us Provider Outside IMG MAMMOGRAPHY ORDERABLES Danyelle l Result from Last 3 Months or Most Recently Relevant to Health Maintenance Insurance [facility] Advance Directives For more information, please contact: [phone] Documents on File Type Date Recorded Patient Movie Writer Expl anation Advance Directives and Living Will [...] Chandra Daughter First Alternate Health Care Agent Calosamaury Song Son Health Care Agent Care Teams Cat Scan Tech Relationship Specialty Start Date End Date Yamila Dave PA-C [facility] [address] [place] [address] PCP - General Physician Tearoom Host 04/14/20 Chadwick Jensen NP [address] [address] Nurse Practitioner Cardiovascular Disease 11/15/22 Rahul Ford MD Cardiovascular Disease 01/24/24 Rahul Ford MD Assigned Heart and Vascular Provider 02/24/24
--- OUTSIDE RECORDS SUMMARY | 2024-08-06 08:08 | XMS_ITS | Clinical Summary ---
Author Organization [employer] [facility] Address [place], [place] [address] Care Team Providers Care Inspector Raw Quartz Name Role Phone Yamila Dave PA-C Primary Care Provider [phone] Allergies Active Allergy Reactions Criticality Noted Date [...] 58 11/19/2020 9:15 AM CDT Temperature 36.3 C (97.3 F) 11/19/2020 8:28 AM CDT Respiratory Rate 18 [...] (1 of 2) 2011 COVID-19 vaccine series (2023- season) 2024 12/30/2020, 12/09/2020 Influenza for age [...] 16 Negative Negative 06/21/2022 9:30 AM CDT [facility] TRAL LABORATORY TYPE 18 Negative Negative 06/21/2022 9:30 AM CDT [facility] TR[facility] LAB[facility] OTHER HIGH RISK TYPES Negative Negative 06/21/2022 9:30 AM CDT [facility] TRAL LABORATORY Other (Cervical/Vagina l) 06/15/2022 9:45 AM CDT 06/16/2022 8:28 AM CDT Narrative [facility] - 06/21/2022 9:30 AM CDT HPV types 16, 18, 31, 33, 35, 39, 45, 51, 52, 56, 58, 59, 66 and 68 DNA were undetectable or below the pre-set threshold. Methodology: Jamie Cristina 4800 HPV Test Yamila Dave PA-C MICROBIOLOGY [facility] [address] [place] [address], from Last 3 Months or Most Recently Relevant to Health Maintenance Advance Directives * Full Code (Latest Code Status on File) Date Activated Date Inactivated Comments 11/19/2020 5:56 AM 11/19/2020 1:25 PM Question Answer Comments Code Status Discussion: Not Discussed Care Teams Inspector Raw Quartz Relationship Specialty Start Date End Date Yamila Dave PA-C [address], [place] [address] PCP - General Emergency Medicine 11/05/20
--- OUTSIDE RECORDS SUMMARY | 2024-08-06 08:08 | XMS_ITS | Encounter Summary ---
Author Organization [facility] Address [address] [address] Phone Care Team Providers Care Manual Training Teacher Name Role Phone Elsewhere, Pcp Primary Care Provider Unavailabl e Encounter Details Date Type Department Care Team (Late st Contact Info) Description 06/13/2024 6:30 AM CDT Ancillary Procedure [facility] [address] [facility] [address] [place] [address] Social History Tobacco Use Types Packs/Day Years Used Date Smoking Tobacco: Never Passive Smoke Exposure: Past Smokeless Tobacco: Never Alcohol Use Standard Drinks/Week Comments Yes 0 (1 standard drink = 0.6 oz pur e alcohol) monthly [facility] Utilities Answer Date Recorded In the past [...] any time in the past 12 m [facility], were you homeless or living in a snf (including now)? No 06/13/2024 EH IP Custom IPV Answer Date Recorded Do you feel UNSAFE in any of your personal relationships with your family members or any other acquaintances? 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
--- OUTSIDE RECORDS SUMMARY | 2024-08-06 08:08 | XMS_ITS | Encounter Summary ---
Author Organization [facility] Address [address] [address] Phone Care Team Providers Care Devil Tender Name Role Phone Elsewhere, Pcp Primary Care Provider Unavailabl e Reason for Visit * Auth/Cert (Routine) Specialty Diagnoses / Procedures Referred By Vickie zuniga Referred To Contact Diagnoses Degenerative joint disease of right hip M16.11 Procedures TOTAL HIP REPLACEMENT Right total hip arthroplasty direct anterior approach Kong Alvares MD [facility] [address] [address] Phone: tel: fax: Referral ID Status Reason Start Date Expiration Date Visits Re quested Visits Authorized [id number] 1 1 Encounter Details Date Type Department Care Team (Late st Contact Info) Description 06/13/2024 8:14 AM CDT Anesthesia Event [facility] OR [address] [place] [phone] Scotty Bryan MD [address] 7[address] Akin Chase MD [address] [id number] Anesthesia Record Procedure Summary Procedure Name Responsible Anesthesiologist Anesthesia Start Time Anesthesia Stop Time Right total hip arthroplasty direct anterior approach (Right: Hip) Scotty Bryan MD 06/13/24 0814 06/13/24 1055 Events Date Time Event Comment 06/13/2024 0711 AN Equip Check 0726 0728 LIVE IN CAREGIVER Ready 0814 An Start The patient was reevaluated immediately prior to initiation of anesthesia. 0814 An Start Data 0818 An Induction 0821 An Intubation 0825 Anesthesia Ready 0902 Quick Note start 1047 Emergence Started 1048 An Extubation 1048 Start Supplemental O2 1049 an stop data 1052 Intraop Signature Intraop erative Record electronically signed by Klever Coleman APRN, LIVE IN CAREGIVER 1055 An Stop Report given to the receiving RN. No apparent anesthesia complications at this time. Electronically signed by Klever Coleman APRN, LIVE IN CAREGIVER 1055 Intraop Signature Intraop erative Record electronically [...] by mask (1); Video l[facility]oscopy; [facility]; [facility] 3; 2a; 1; 22 cm 06/13/24 [...] the past 12 months has th e [employer], gas, oil, or water [employer] threatened to shut off services in your [...] any time in the past 12 m [facility], were you homeless or living in a penitentiary (including now)? No 06/13/2024 EH IP Custom IPV Answer Date Recorded Do you feel UNSAFE in any of your personal relationships with your family members or any other acquaintances? 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
--- OUTSIDE RECORDS SUMMARY | 2024-08-06 08:09 | XMS_ITS | Data Portability ---
Author Organization [place] - [facility], [place] - [facility] - Address [address] [place] [address] Care Team Providers Care Office Technologist Name Role Phone DIEGO RIVAS Primary Care Provider Assessment No assessment recorded. Plan of Treatment Reminders Order Date Submit Date Provider Last Modified By Organization Details Last Modified Time Details Appointments None recorded. Lab None recorded. Referral None recorded. Procedures None recorded. Surgeries None recorded. Imaging None recorded. Medication Orders Contrave 8 mg-90 mg tablet,ext ended release 2016 017 [id number], [address], [place], [place], [id number], 7 13:16:34 phentermin e 37.5 mg tablet 2016 017 INTERFACE [facility][id number], [address], [place], [place], [id number], 7 13:24:12 phentermin e 37.5 mg tablet 2017 018 INTERFACE [facility][id number], [address], [place], [place], [id number], 8 13:24:36 Patient TargetsNo targets recorded. Patient Instructions Encounter Date Encounter Id Patient Instructions Last Modified By Organization Details Last Modified Time 05/14/2017 [id number] restart a carb/portion controlled diet plan restart regular exercise cont current meds start contrave - serd Not available 05/14/2017 20:10:32 06/12/2017 [id number] start metamucile or benefiber for constipation decrease losartan by 1/2 continue complete meal replacement diet continue regular exercise continue current meds Not available 06/12/2017 13:26:48 07/24/2017 [id number] cont CHERRY food srinivasan n cont regular exercise cont current meds except d/c contrave, start phentermine - serd Not available 07/24/2017 13:23:32 09/04/2017 [id number] cont carb/portio n controlled diet plan cont regular exercise cont current meds Not available 09/04/2017 13:22:41 01/09/2018 [id number] When You Want to Lose Weight: Care [...] Address Organization Details Recorded Time Essential hypertension 57406893 Active 2016 Praveena Stanford NP [address] [facility],[address], [place], [address] , [facility] 7 15:26:16 Gastroesophag eal reflux disease 980751780 Active 2016 Praveena Stanford NP [address], [place], [address] , [facility] 7 15:26:24 Obstructive sleep apnea syndrome 73120485 Active 2016 Praveena Stanford NP [address], [place], [address] , [facility] 7 15:26:31 Vitamin D deficiency 05438281 Active 2016 Praveena Stanford NP [address], [facility] [place], [address] , [facility] 7 15:26:52 Iron deficiency anemia 98273317 Active 2016 Praveena Stanford NP [address], [place], [address] , [facility] 7 15:27:01 Obesity 498263914 Active 2016 Praveena Stanford NP [address], [place], [address] , [facility] 7 15:27:32 Problem Notes None recorded. Procedures Surgical History Date Name Laterality Status Provider Name and Address Organization Details Recorded Time 6 Date of Last Mammogram completed Ter[facility] 01/08/2017 14:38:03 6 Date of Last Pap Smear completed Terri [facility] 01/08/2017 14:38:23 2 Date of Last Colonoscopy completed Terri [facility] 01/08/2017 14:38:09 Imaging Results Imaging [...] Name and Address Organization Details Recorded Time 127277 Substance with sulfonami de structure and antibacte rial mechanism of action (substanc e) medicatio n Not available Not available Not available 04/17/2016 57110 8003 SNOMED Breana Tvrdy elizabeth [facility] 6 16:27:07 199713 Zoloft medicatio n rash Not available Not available 01/08/2017 68720 RxNorm Terri Leonard [facility], [place] - [facility] 7 14:32:43 Medications Name Sig Start [...] Updated DateTime 7 160.02 cm 33.1 kg/m2 50217.3 4 g 76 /min 120 mm[Hg] 88 mm[Hg] Terri Valle [facility] 7 19:17:08 Date Recorded Body weight Provider Name an d Address Organization Details Last Updated DateTime 05/28/2017 68860.45 g Terri Valle [facility] 05/28/2017 18:43:50 Date Recorded Body height Body mass index (BMI) Body weight Heart rate Systolic blood pressure Diastolic blood pressure Provider Name and Address Organization Details Last Updated DateTime 7 160.02 cm 32 kg/m2 32895.5 g 70 /min 126 mm[Hg] 72 mm[Hg] Terri Valle [facility] 7 13:01:48 Date Recorded Body height Body mass index (BMI) Body weight Heart rate Systolic blood pressure Diastolic blood pressure Provider Name and Address Organization Details Last Updated DateTime 7 160.02 cm 31.7 kg/m2 39965.7 5 g 80 /min 122 mm[Hg] 72 mm[Hg] Ashley Davis [facility] 7 13:03:20 Date Recorded Body height Body mass index (BMI) Body weight Heart rate Systolic blood pressure Diastolic blood pressure Provider Name and Address Organization Details Last Updated DateTime 8 160.02 cm 31.4 kg/m2 19149.6 5 g 92 /min 121 mm[Hg] 78 mm[Hg] Ashley Lasso [facility] 8 12:52:05 Date Recorded Body height Body mass index (BMI) Body weight Heart rate Systolic blood pressure Diastolic blood pressure Provider Name and Address Organization Details Last Updated DateTime 8 160.02 cm 29.4 kg/m2 51245.6 1 g 70 /min 116 mm[Hg] 70 mm[Hg] Terri Lenoard [facility] 8 11:39:02 Social History Question Answer Notes LastModified by Organizat ion Details LastModified Time Tobacco Smoking Status Never Smoker Terri johnson [facility] 01/09/2018 11:39:21 What Is Your Level Of Alcohol Consumption? Occasional Information not available 04/17/2016 What Is Your Level Of Caffeine Consumption? Occasional [email or web address] Information not available 01/08/2017 How Much Tobacco Do You Chew? None Information not available 04/17/2016 What Type Of Diet Are You Following? REGULAR Information not available 04/17/2016 Which Illicit Or Recreational Drugs Have You Used? 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 No [email or web address] Information not available 01/09/2018 Have You Traveled Outside Of The [place] In The Last 21 Days (3 Weeks)? No Information not available 04/17/2016 Did You Hurt Yourself When You Fell In The Last Year? No [email or web address] Information not available 01/09/2018 Marital Status Informatio n not available 04/17/2016 What Was The Date Of Your Most Recent Tobacco Screening? 01/09/2018 Information not available 03/28/2019 How Much Tobacco Do You Smoke? No [email or web address] Information not available 01/09/2018 How Many Years [...] Family history of malignant neoplasm prosta te [email or web address] Not available 01/08/2017 14:38:56 Father Myocardial infarction 2 heart attack s, conges tive heart failur e [email or web address] Not available 01/08/2017 14:39:56 Mother Depressive disorder [email or web address] Not available 04/2017 14:39:06 Mother Anxiety [email or web address] Not availab le 01/08/2017 14:39:16 Mother Hypertensive disorder [email or web address] Not available 04/2017 14:40:10 Medical History Condition Response Bowel Disorder N Seizure Disorder N Liver Problems N Hernia N Constipation / Bowel Problem N Prostate Problems N Headaches/Migraines N Hearing Problems N Arthritis N Cancer N Ear Pain/Infection N High Cholesterol N Bone/Joint Problems N Fatigue N Gastrointestinal Problems Y Skin Problems N Depression/Anxiety/Mood Disorder Y Chest Pain N Urinary Problems N Hypertension / High Blood Pressure Y Irregular Heart Beat N Dizziness/Fainting N Diabetes N Palpitations N Back Problems N Heart Attack N Asthma N Numbness/Tingling N Sleep Apnea Y Thyroid Disorder N Gynecological History Statement/Question Response Date of Last Pap Smear 01/02/2016 Date of Last Colonoscopy 02/02/2012 Date of Last Mammogram 01/02/2016 Obstetrics History GPAL:G 0 P 0 0 0 0 Past Encounters Encounter ID Performer Location Encounter Start Date Encounter Closed Date Diagnosis/Indication Diagnosis SNOMED-CT Code Diagnosis ICD10 Code [id number] Mariangel Jo [facility] [place] [facility] [address] [place] [address] 04/17/2016 15:56:59 04/18/2016 10:33:38 [id number] Praveena Stanford NP [facility] [place] [facility] [address] [place] [address] 01/08/2017 14:25:43 01/08/2017 20:34:40 Essential hypertension 42083351 I10 Obesity 528608896 E66.9 Vitamin D deficiency 347 80224 E55.9 Obstructiv e sleep apnea syndrome 61668776 G47.33 Gastroesop hageal reflux disease 348660034 K21.9 Electrocar diogram abnormal 669634151 R94.31 [id number] Winnie Velasquez DO [facility] [place] [facility] [address] [place] [address] 01/22/2017 19:38:55 01/23/2017 13:42:34 Essential hypertension 58118729 I10 Obesity 803350995 E66.9 Obstructiv e sleep apnea syndrome 30318507 G47.33 Electrocar diogram abnormal 011728341 R94.31 [id number] Praveena Stanford NP [facility] [place] [facility] [address] [place] [address] 02/05/2017 19:21:08 02/06/2017 21:42:06 Obesity 262375398 E66.[id number] [facility] [place] [facility] [address] [place] [address] 02/21/2017 12:00:09 02/21/2017 13:00:15 [id number] Sage Watson MD [facility] [place] [facility] [address] [place] [address] 03/19/2017 19:26:18 03/20/2017 20:31:00 Obesity 608113227 E66.9 [id number] Sage Watson MD [facility] [place] [facility] [address] [facility] [place] [address] 04/16/2017 18:30:03 04/17/2017 17:20:29 Essential hypertension 57042706 I10 Obesity 342351980 E66.9 [id number] Sage Watson MD [facility] [place] [facility] [address] [place] [address] 05/14/2017 19:07:14 05/15/2017 12:30:26 Obesity 072801428 E66.9 Menopausal flushing 1984 73965 N95.1 [id number] Sage Watson MD [facility] [place] [facility] [address] [place] [address] 06/12/2017 12:57:29 06/14/2017 14:18:51 Constipation 15363892 K59.00 Lightheadedness 38091980 8 R42 Obesity 775665065 E66.9 [id number] Sage Watson MD [facility] [place] [facility] [address] [place] [address] 07/24/2017 12:56:52 07/25/2017 12:41:37 Obesity 138136058 E66.9 [id number] Sage Watson MD [facility] [place] [facility] [address] [place] [address] 09/04/2017 12:40:14 09/05/2017 22:03:14 Essential hypertension 81523216 I10 Obesity 666060532 E66.9 [id number] Sage Watson MD [facility] [place] [facility] [address] [place] [address] 01/09/2018 11:29:35 01/09/2018 20:00:38 Essential hypertension 53412834 I10 Obstructiv e sleep apnea syndrome 36034498 G47.33 Gastroesop hageal reflux disease 984738551 K21.9 Obesity 147083090 E66.9 Health Concerns Section Related Observation LastModified by Organization Detai ls LastModified Time None Recorded Concern Status LastModified by Organization Details LastModified Time None Recorded Advance Directives Directive None Recorded Payers Encounter Date Sequence Insurance Name Policy Number Policy Sheehan Covered Member ID Sheehan Member ID Guarantor Name 05/14/2017 1 [employer] ([employer]) [id number] Kriss Song [id number] Kriss Song 06/12/2017 1 [employer]) [id number] Kriss Song [id number] Kriss Song 07/24/2017 1 [employer]) [id number] Kriss Song [id number] Kriss Song 09/04/2017 1 [employer] ([employer]) [id number] Kriss Angulosen [id number] Kriss Angulosen 01/09/2018 1 [employer] (PP[employer]) [id number] Kriss Angulosen [id number] Kriss Song Notes Date Note Type Note Provider Name and Address Organization Details Recorded Time 05/14/2017 text/html continues to hav e hot flashes and menopause sxs - seen PMD and instructed that she is not a candidate for HRT.obesity - lost 8# sine January - struggling with further weight oss. Sage Watson MD [address] [facility] [address], [place], [address], [facility] 05/14/2017 20:10:44 06/12/2017 text/html constipation for the past several weeks -- not taking any otc fiber.lightheadedn ess with position change - has rx for lower dose of losartan but has not started yet. obesity - lost 14# since January. Taking contrave bid - constipation worsened since starting contrave. Walking for exercise. Sage Watson MD [address] [facility],[place] [address], [place], [address], [facility] 06/12/2017 13:27:39 07/24/2017 text/html GERD - omeprazol e daily, no dysphagia. Started [employer]iable food plan. Walking for exercise.obesity - lost 14# since January. Taking contrave bid - does not feel that is helping. Sage Watson MD [address] [facility],[place] [address], [place], [address], [facility] 07/24/2017 13:24:04 09/04/2017 text/html htn - decreased losartan/hct daily without s.e. Not exercising consistently. Following a CHERRY diet plan.obesity - lost 14# since January. Taking phentermine 1/2 tab po daily without s.e. Sage Watson MD [address] [facility] [address], [place], [address], [facility] 09/04/2017 13:24:25 01/09/2018 text/html htn - decreased losartan/hct daily without s.e. Jeet 5 x a week. Following a low carb diet plan.CADENCE - does not use cpap.gerd - omeprazole daily - no heartburn , no dysphagia.obesity - lost 29# since January 2017. Taking phentermine 1/2 tab po daily without s.e. Sage Watson MD [address] [place] [address],[address], [place], [address], [place] - [facility] 01/09/2018 11:57:09 OBGyn Episode No OBEpisode recorded.
== END 2024-08-04 09:04 | disposition home or self-care (01) ==
LOC: NFLDREF 08-06 07:58
PROVIDERS: PCP Physician Assistant Medical; Referring Provider Physician Assistant Medical; Visit Provider Physician Assistant Medical
DX: E78.00 Pure hypercholesterolemia, unspecified (principal)
CPT/HCPCS: 80061

== ENCOUNTER 2024-08-06 13:24 | Outpatient (CLI) | payer BC, SELFPAY ==
--- OUTSIDE RECORDS SUMMARY | 2024-08-06 13:26 | XMS_ITS | Encounter Summary ---
Author Organization [facility] Address [address] [address] Phone Care Team Providers Care Production Artist Name Role Phone Elsewhere, Pcp Primary Care Provider Unavailabl e Encounter Details Date Type Department Care Team (Latest Contact Info) Description 06/13/2024 Travel Social History Tobacco Use Types Packs/Day Years Used Date Smoking Tobacco: Never Passive Smoke Exposure: Past Smokeless Tobacco: Never Alcohol Use Standard Drinks/Week Comments Yes 0 (1 standard drink = 0.6 oz pur e alcohol) monthly [facility] Utilities Answer Date Recorded In [...] any time in the past 12 m [facility], were you homeless or living in a fci (including now)? No 06/13/2024 EH IP Custom IPV Answer Date Recorded Do you feel UNSAFE in any of your personal relationships with your family members or any other acquaintances? 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
--- OUTSIDE RECORDS SUMMARY | 2024-08-06 13:26 | XMS_ITS | Encounter Summary ---
Author Organization [facility] Address [address] [address] Phone Care Team Providers Care Pool Lifeguard Name Role Phone Elsewhere, Pcp Primary Care Provider Unavailabl e Encounter Details Date Type Department Care Team (Late st Contact Info) Description 06/13/2024 6:30 AM CDT Ancillary Procedure [facility] [address] [facility] [address] [place] [address] Social History Tobacco Use Types Packs/Day Years Used Date Smoking Tobacco: Never Passive Smoke Exposure: Past Smokeless Tobacco: Never Alcohol Use Standard Drinks/Week Comments Yes 0 (1 standard drink = 0.6 oz pur e alcohol) monthly [facility] Utilities Answer Date Recorded In the [...] any time in the past 12 m [facility], were you homeless or living in a half-way (including now)? No 06/13/2024 EH IP Custom IPV Answer Date Recorded Do you feel UNSAFE in any of your personal relationships with your family members or any other acquaintances? 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
--- OUTSIDE RECORDS SUMMARY | 2024-08-06 13:26 | XMS_ITS | Clinical Summary ---
Author Organization [facility] Address [address] [address] Phone Care Team Providers Care Tung Nut Grower Name Role Phone Elsewhere, Pcp Primary Care [...] Description 06/13/2024 11:05 AM CDT Ancillary Procedure [facility] [address] [place] [address] [address] [place] [address] 06/13/2024 8:15 AM CDT - 06/13/2024 11:45 AM CDT Surgery [facility] OR [address] [place] [id number] Kong Alvares MD Right total hip arthroplasty direct anterior approach 06/13/2024 8:14 AM CDT Anesthesia Event [facility] [address] [place] [address] Scotty Bryan MD Beerling, Nathan T, MD 06/13/2024 6:30 AM CDT Ancillary Procedure [facility] [address] [facility] [address] [place] [address] 06/13/2024 5:52 AM CDT - 06/14/2024 10:45 AM CDT Hospital Encounter [facility] [address] [place] [address] Kong Alvares MD Status post total replacement [...] anterior approach; Surgeon: Kong Alvares MD; Location: [facility] OR Medical devices from this surgery are [...] = 0.6 oz pur e alcohol) monthly [facility] Utilities Answer Date Recorded In the past 12 months has th e [employer], gas, oil, or water [employer] threatened to shut off services in your [...] any time in the past 12 m [facility], were you homeless or living in a prison (including now)? No 06/13/2024 EH IP Custom IPV Answer Date Recorded Do you feel UNSAFE in any of your personal relationships with your family members or any other acquaintances? 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 Gender Identity Female 06/11/2024 11:55 AM [...] this topic Medical Devices Implanted Type Area Area Manager Device Identifier Shelf Expiration Date Model / Serial / Lot [place] Hole Eliminator Ps - [id number] Implanted:Qty: 1 on 06/13/2024 by Kong Alvares MD at [facility] Right: Hip DEPUY [id number] 03/02/2034 0 / NA / [id number] Cup Acet 52mm [place] Sector Ii - [id number] Implanted:Qty: 1 on 06/13/2024 by Kong Alvares MD at [facility] Right: Hip DEPUY [id number] 04/02/2034 2 / NA / [id number] Screw Bone [place] Cancellous 6.5x25mm - [id number] Implanted:Qty: 1 on 06/13/2024 by Kong Alvares MD at [facility] Right: Hip DEPUY [id number] 01/31/2034 0 / NA / [id number] Liner Acet Altrx 36mm X 52mm Neutral - [id number] Implanted:Qty: 1 on 06/13/2024 by Kong Alvares MD at [facility] Right: Hip DEPUY [id number] 04/02/2029 2 / NA / [id number] Screw Bone Cancellous 6.5mm X 35mm - [id number] Implanted:Qty: 1 on 06/13/2024 by Kong Alvares MD at [facility] Right: Hip DEPUY [id number] 12/01/2033 0 / NA / [id number] Stem Femoral Actis Duofix Sz 3 - [id number] Implanted:Qty: 1 on 06/13/2024 by Kong Alvares MD at [facility] Right: Hip DEPUY [id number] 03/02/2034 1010-07-06 0 / NA / [id number] Head Femoral Biolox Delta Sz 36 +1.5mm - [id number] Implanted:Qty: 1 on 06/13/2024 by Kong Alvares MD at [facility] Right: Hip DEPUY [id number] 04/02/2029 0 / NA / [id number] Procedures Procedure Name Priority Date/Time Associated Diagnosis [...] - 16.0 g/dl 06/14/2024 7:31 AM CDT [facility] Blood BLOOD SPECIMEN / Unknown Venipuncture / Unknown 06/14/2024 7:17 AM CDT 06/14/2024 7:27 AM CDT us Kong Alvares MD [facility] HEMATOLOGY ORDERABLES Final Result ARTHUR FAYE [address] [phone] * XR HIP RIGHT 2 OR 3 [...] Final Result from Last 3 Months Insurance [facility] BLUE PLUS [place] [facility] Commercial Address: [facility] [address] [place] [address] Advance Directives For more information, please contact: [phone] Documents on File Type Date Recorded Patient Healthcare Specialist Expl anation Advance Directive - RV 06/13/2024 2:56 PM Advance Directive * Full Code (Latest Code Status on File) Date Activated Date Inactivated Comments 06/13/2024 6:10 AM 06/14/2024 3:07 PM Care Teams Tung Nut Grower Relationship Specialty Start Date End Date Elsewhere, Pcp PCP - General 06/10/24
--- OUTSIDE RECORDS SUMMARY | 2024-08-06 13:26 | XMS_ITS | Encounter Summary ---
Author Organization [facility] Address [address] [address] Phone Care Team Providers Care Field Geologist Name Role Phone Elsewhere, Pcp Primary Care Provider Unavailabl e Encounter Details Date Type Department Care Team (Late st Contact Info) Description 06/13/2024 11:05 AM CDT Ancillary Procedure [facility] [address] [facility] [address] [place] [address] Social History Tobacco Use Types Packs/Day Years Used Date Smoking Tobacco: Never Passive Smoke Exposure: Past Smokeless Tobacco: Never Alcohol Use Standard Drinks/Week Comments Yes 0 (1 standard drink = 0.6 oz pur e alcohol) monthly [facility] Utilities Answer Date Recorded In the past [...] any time in the past 12 m [facility], were you homeless or living in [...] AM CDT Legal Sex Female 11:05 PM 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
--- OUTSIDE RECORDS SUMMARY | 2024-08-06 13:26 | XMS_ITS | Encounter Summary ---
Author Organization [facility] Address [address] [address] Phone Care Team Providers Care Clinical Academic Allergist Name Role Phone Elsewhere, Pcp Primary Care Provider Unavailabl e Reason for Visit * Reason Onset Date Comments Pre-Procedure Call 06/10/2024 * Auth/Cert (Routine) Specialty Diagnoses / Procedures Referred By Vickie zuniga Referred To Contact Diagnoses Degenerative joint disease of right hip M16.11 Procedures TOTAL HIP REPLACEMENT Right total hip arthroplasty direct anterior approach Kai Carrillo MD [facility] [address] [address] Phone: tel: fax: Referral ID Status Reason Start Date Expiration Date Visits Re quested Visits Authorized [id number] 1 1 Encounter Details Date Type Department Care Team (Late st Contact Info) Description 06/13/2024 5:52 AM CDT - 06/14/2024 10:45 AM CDT Hospital Encounter [address] [id number] Kai Carrillo MD [facility] [address] [address] Status post total replacement of right hip (Primary Dx) Discharge Disposition: Home and/or Self Care Social History Tobacco Use Types Packs/Day Years Used Date Smoking Tobacco: Never Passive Smoke Exposure: Past Smokeless Tobacco: Never Alcohol Use Standard Drinks/Week Comments Yes 0 (1 standard drink = 0.6 oz pur e alcohol) monthly [facility] Utilities Answer Date Recorded In [...] any time in the past 12 m [facility], were you homeless or living in a half-way (including now)? No 06/13/2024 IP Custom IPV Answer Date Recorded Do you feel UNSAFE in any of your personal relationships with your family members or any other acquaintances? No 2023 Comments No Sex and Gender Information Value Date Recorded Sex Assigned at Female 06/11/2024 11:55 AM CDT Legal Sex Female 11:05 PM HOSPITAL NURSING ASSISTANT Gender Identity Female 06/11/2024 11:55 AM [...] Provider. Follow Up Instructions: Kai Carrillo MD [facility] \ [place] [address] [place] [address] Go on 07/02/2024 Post-op appointment scheduled with Dr. Carrillo on 07/02/24 at 2:00 PM at the [place] office Mesha Andino PA-C documented in this [...] Means Destination Comment s Home and/or Self Custodial documented in this encounter Progress Notes * [...] 61-90 Moderate Dependence 91-99 Slight Dependence 100 Richardson Score Prediction Less than 40 Unlikely to [...] cues and stand by assist. Patient and assistant women's basketball coach were also educated on exit [...] minutes with walker and icing every hour [id number] minutes during the day; HEP - 2x/day; [...] precautions following ARVIND. The patient and their assistant women's basketball coach have been instructed on safe [...] Total Treatment Time: 18 minutes Therapeutic Activities (12054) = 10 minutes Gait Training (76892) = 8 minutes * Aracely Gomez PA-C [...] No Length of Stay Plan reviewed;Overnight stay Talent Acquisition Operations Manager name & phone number Eloise Saleem [phone] Will your assistant women's basketball coach be the one picking you [...] Pre-op H&P date 05/19/24 Pre-op H&P location [facility] in [place] How many stairs to enter your home? [...] of Procedure: 06/13/2024 SURGEON KAI CARRILLO M.D. BUTTON BREAKER Maria Del Carmen Morocho PA-C - Assisting PREOPERATIVE DIAGNOSIS Right hip osteoarthritis, failed to respond to conservative management. POSTOPERATIVE DIAGNOSIS Right hip osteoarthritis, failed to respond to conservative management. TITLE OF PROCEDURE Right total hip arthroplasty, Depuy uncemented components, direct anterior approach. Medical Joyworks computerassisted fluoroscopic hip navigation. ANESTHESIA TYPE: General ESTIMATED BLOOD LOSS: 500 mL SPECIMEN(S) No Specimens Collected COMPLICATIONS: none IMPLANT(S): Implant Name Type Inv. Item Serial No. Shipyard Painter Lot No. LRB No. Used Action APEX HOLE ELIMINATOR PS - [id number] APEX HOLE ELIMINATOR PS NA DEPUY [id number] Right 1 Implanted CUP ACET 52MM PINNACLE SECTOR II - [id number] CUP ACET 52MM PINNACLE SECTOR II NA DEPUY [id number] Right 1 Implanted SCREW BONE PINNACLE CANCELLOUS 6.5X25MM - [id number] SCREW BONE PINNACLE CANCELLOUS 6.5X25MM NA DEPUY [id number] Right 1 Implanted LINER ACET ALTRX 36MM X 52MM NEUTRAL - [id number] LINER ACET ALTRX 36MM X 52MM NEUTRAL NA DEPUY [id number] Right 1 Implanted SCREW BONE CANCELLOUS 6.5MM X 35MM - [id number] SCREW BONE CANCELLOUS 6.5MM X 35MM NA DEPUY [id number] Right 1 Implanted STEM FEMORAL ACTIS DUOFIX SZ 3 - [id number] STEM FEMORAL ACTIS DUOFIX SZ 3 NA DEPUY [id number] Right 1Implanted HEAD FEMORAL BIOLOX DELTA SZ 36 +1.5MM - [id number] HEAD FEMORAL BIOLOX DELTA SZ 36 +1.5MM NA [id number] Right 1 Implanted PROCEDURE The patient was brought to the operating room and after satisfactory anesthesia was placed on the Lenore table. The right lower extremity was then [...] aid of image intensification. A 52 mm [place] cup was impacted into place in approximately [...] and found to have good length and religious of offset. It was felt that an [...] of tranexamic acid pre-op. A skilled assistant casino shift manager was necessary for this procedure for assistance [...] therapy. Pt's sister Eloise will be her assistant women's basketball coach. Pt had her left hip replaced in March 2024 at [facility] Admission Diagnosis: Degenerative joint disease of [...] balance POD0. Therapeutic Activity: Skilled therapeutic education, behavioral health counselor and activity modification was providedto patient [...] concerns to note. Patient is appropriate for [facility] led physical therapy services. [...] Time: 30 minutes Evaluation Moderate - Complexity (08283) Therapeutic Activities (18173) = 12 minutes Gait Training (17739) = 8 minutes * Brief Op Note - Kai Carrillo MD - 06/13/2024 10:53 AM CDT [facility] BRIEF OPERATIVE [facility] Pre-Op Diagnosis: Right hip degenerative joint disease M16.11, CPT: 91234 Post-Op Diagnosis: Same Procedure(s): Right direct anterior total hip arthroplasty Anesthesia Type: General Surgeons and Role: * Kai Carrillo MD - Primary * Maria Del Carmen Morocho PA-C - Assisting Estimated Blood Loss: 500 mL Specimen(s): No Specimens Collected Complications: None Implant(s): Implant Name Type Inv. Item Serial No. Shipyard Painter Lot No. LRB No. Used Action APEX HOLE ELIMINATOR PS - [id number] APEX HOLE ELIMINATOR PS NA DEPUY [id number] Right 1 Implanted CUP ACET 52MM PINNACLE SECTOR II - [id number] CUP ACET 52MM PINNACLE SECTOR II NA DEPUY [id number] Right 1 Implanted SCREW BONE PINNACLE CANCELLOUS 6.5X25MM - [id number] SCREW BONE PINNACLE CANCELLOUS 6.5X25MM NA DEPUY [id number] Right 1 Implanted LINER ACET ALTRX 36MM X 52MM NEUTRAL - [id number] LINER ACET ALTRX 36MM X 52MM NEUTRAL NA DEPUY [id number] Right 1 Implanted SCREW BONE CANCELLOUS 6.5MM X 35MM - [id number] SCREW BONE CANCELLOUS 6.5MM X 35MM NA DEPUY [id number] Right 1 Implanted STEM FEMORAL ACTIS DUOFIX SZ 3 - [id number] STEM FEMORAL ACTIS DUOFIX SZ 3 NA DEPUY [id number] Right 1Implanted HEAD FEMORAL BIOLOX DELTA SZ 36 +1.5MM - [id number] HEAD FEMORAL BIOLOX DELTA SZ 36 +1.5MM NA [id number] Right 1 Implanted Plan: DC home POD1 [...] on 07/02/24 at 2:00 PM at the [place] office Patient's goals after surgery: less pain Patient's concerns with upcoming surgery: none H&P Patient's pre-operative history and physical with their primary care physician was reviewed. From that, the following should be noted: -HTN, CAD, psoriatic arthritis (holding humira currently), untreated CADENCE (AHI 13 from 2016), GERD, anxiety -s/p LTHA 03/20/24 at [facility]. No complications per patient. Discharged [...] time of discharge between 9:00AM-12:00PM with their city bus driver arriving by 8:00 AM Pastry Supervisor: Eloise saleem Discharge location: home Anticipated Home Health Services: None Talent Acquisition Operations Manager/Family member available after discharge: Niece will stay with patient first 2 nights (was notpresent for this discussion) Post-operative medication plan and education was discussed Patient's medication dosing and sig for the above medications to be determined post-operatively. In the event of a concern arising after surgery, the patient was provided with the following information: During business hours, call surgeon's career developer, Marysol Ghotra at [phone]. After business hours, call the on-call provider at [phone]. [facility] was discussed. They [...] Assistive Devices Page 17/51 They understand their assistant women's basketball coach should bring their assistive device [...] is not an outpatient pharmacy at the [facility] and they will need to cotton picking machine operator their post-operative medications at a pharmacy of [...] of surgery after arriving at the [facility] [place]. Avoiding a Delayed Surgery Page 10 I gave them this reference to use between now and surgery to avoid their surgery being delayed or cancelled. Adamaris Villa PA-C [facility] documented in this encounter Plan [...] - 16.0 g/dl 06/14/2024 7:31 AM CDT [facility] Blood BLOOD SPECIMEN / Unknown Venipuncture / Unknown 06/14/2024 7:17 AM CDT 06/14/2024 7:27 AM CDT Kai AGUILERA HEMATOLOGY ORDERABLES Final Result [facility] [address] [phone] * XR HIP RIGHT 2 OR 3 [...] 0814 (Given - Provider: Klever Coleman APRN, ORGANIC GARDENING TEACHER) ceFAZolin (ANCEF) 2 g in dextrose [...] Until 06/14/24 at 1502, Respiratory Depression, Other, VICE PRESIDENT BIOSTATISTICS depression ondansetron (Zofran ODT) disintegrating tablet 4 [...] 06/13/2024 documented in this encounter Care Teams Clinical Academic Allergist Relationship Specialty Start Date End Date Elsewhere, Pcp PCP - General 06/10/24 documented as of this encounter
--- OUTSIDE RECORDS SUMMARY | 2024-08-06 13:27 | XMS_ITS | Clinical Summary ---
Author Organization [employer] [facility] Address [place], [place] [address] Care Team Providers Care Florist Supplies Salesperson Name Role Phone Yamila Dave PA-C Primary Care Provider + [phone] Allergies Active Allergy Reactions Criticality Noted Date [...] 16 Negative Negative 06/21/2022 9:30 AM CDT [facility] TYPE 18 Negative Negative 06/21/2022 9:30 AM CDT [facility] OTHER HIGH RISK TYPES Negative Negative 06/21/2022 9:30 AM CDT [facility] Other (Cervical/Vagina l) 06/15/2022 9:45 AM CDT 06/16/2022 8:28 AM CDT Narrative [facility] - 06/21/2022 9:30 AM CDT HPV types 16, 18, 31, 33, 35, 39, 45, 51, 52, 56, 58, 59, 66 and 68 DNA were undetectable or below the pre-set threshold. Methodology: Jamie Cristina 4800 HPV Test Yamila Dave PA-C MICROBIOLOGY [facility] [address] [place] [address], from Last 3 Months or Most Recently Relevant to Health Maintenance Advance Directives * Full Code (Latest Code Status on File) Date Activated Date Inactivated Comments 11/19/2020 5:56 AM 11/19/2020 1:25 PM Question Answer Comments Code Status Discussion: Not Discussed Care Teams Florist Supplies Salesperson Relationship Specialty Start Date End Date Yamila Dave PA-C [address], [place] [address] PCP - General Emergency Medicine 11/05/20
--- OUTSIDE RECORDS SUMMARY | 2024-08-06 13:27 | XMS_ITS | Encounter Summary ---
Author Organization [facility] Address [address] [address] Phone Care Team Providers Care Auto Accessories Installer Name Role Phone Elsewhere, Pcp Primary Care [...] AM CDT Legal Sex Female 11:05 PM INFORMATION ASSURANCE MANAGER Gender Identity Female 06/11/2024 11:55 AM CDT Sexual Orientation Straight 06/11/2024 11 :55 AM CDT documented as of this encounter Plan of Treatment Not on file documented as of this encounter Visit Diagnoses Not on filedocumented in this encounter Care Teams Auto Accessories Installer Relationship Specialty Start Date End Date Elsewhere, Pcp PCP - General 06/10/24 documented as of this encounter
--- OUTSIDE RECORDS SUMMARY | 2024-08-06 13:27 | XMS_ITS | Encounter Summary ---
Author Organization [facility] Address [address] [address] Phone Care Team Providers Care Steward/Stewardess Third Class Name Role Phone Elsewhere, Pcp Primary Care Provider Unavailabl e Reason for Visit * Reason Onset Date Comments Pre-Procedure Call 06/10/2024 * Auth/Cert (Routine) Specialty Diagnoses / Procedures Referred By Vickie zuniga Referred To Contact Diagnoses Degenerative joint disease of right hip M16.11 Procedures TOTAL HIP REPLACEMENT Right total hip arthroplasty direct anterior approach Kai Carrillo MD [facility] [address] [address] Phone: tel: fax: Referral ID Status Reason Start Date Expiration Date Visits Re quested Visits Authorized [id number] 1 1 Encounter Details Date Type Department Care Team (Late st Contact Info) Description 06/13/2024 8:15 AM CDT - 06/13/2024 11:45 AM CDT Surgery [facility] OR [address] [place] [phone] Kai Carrillo MD [facility] [address] [address] Right total hip arthroplasty direct anterior approach Surgery Details Date/Time Status Location OR Service Patient Class Case Class Case Type Trauma Case? 06/13/2024 8:15 AM Posted [facility] OR OR 06 Orthopedic AM Admit - [...] = 0.6 oz pur e alcohol) monthly [facility] Utilities Answer Date Recorded In the past 12 months has th e [employer], gas, oil, or water 1Ring threatened to shut off services in your [...] time in the past 12 m [facility], were you homeless [...] AM CDT Legal Sex Female 11:05 PM ASSURANCE SERVICES MANAGER HEALTH CARE Gender Identity Female 06/11/2024 11:55 AM CDT [...] Provider. Follow Up Instructions: Kai Carrillo MD [facility] \ [place] [address] [place] [address] Go on 07/02/2024 Post-op appointment scheduled with Dr. Carrillo on 07/02/24 at 2:00 PM at the [place] office Mesha Andino PA-C documented in this [...] Means Destination Comment s Home and/or Self Residential documented in this encounter Progress Notes * [...] 61-90 Moderate Dependence 91-99 Slight Dependence 100 Bradford Score Prediction Less than 40 Unlikely to [...] and stand by assist. Patient and college football coach were also educated on exit of [...] minutes with walker and icing every hour [id number] minutes during the day; HEP - 2x/day; [...] following ARVIND. The patient and their college football coach have been instructed on safe patient [...] Total Treatment Time: 18 minutes Therapeutic Activities (83270) = 10 minutes Gait Training (97298) = 8 minutes * Aracely Gomez PA-C [...] No Length of Stay Plan reviewed;Overnight stay Slider Assembler name & phone number Eloise Saleem [phone] Will your college football coach be the one picking you up [...] location [facility] in [place] How many stairs to enter your home? [...] of Procedure: 06/13/2024 SURGEON KAI CARRILLO M.D. VETERINARY TECHNICIAN Maria Del Carmen Morocho PA-C - Assisting PREOPERATIVE DIAGNOSIS Right hip osteoarthritis, failed to respond to conservative management. POSTOPERATIVE DIAGNOSIS Right hip osteoarthritis, failed to respond to conservative management. TITLE OF PROCEDURE Right total hip arthroplasty, Depuy uncemented components, direct anterior approach. Gorb computerassisted fluoroscopic hip navigation. ANESTHESIA TYPE: General ESTIMATED BLOOD LOSS: 500 mL SPECIMEN(S) No Specimens Collected COMPLICATIONS: none IMPLANT(S): Implant Name Type Inv. Item Serial No. Warranty Coordinator Lot No. LRB No. Used Action APEX HOLE ELIMINATOR PS - [id number] APEX HOLE ELIMINATOR PS NA DEPUY [id number] Right 1 Implanted CUP ACET 52MM PINNACLE SECTOR II - [id number] CUP ACET 52MM PINNACLE SECTOR II NA DEPUY [id number] Right 1 Implanted SCREW BONE PINNACLE CANCELLOUS 6.5X25MM - [id number] SCREW BONE PINNACLE CANCELLOUS 6.5X25MM NA DEPUY [id number] Right 1 Implanted LINER ACET ALTRX 36MM X 52MM NEUTRAL - [id number] LINER ACET ALTRX 36MM X 52MM NEUTRAL NA DEPUY [id number] Right 1 Implanted SCREW BONE CANCELLOUS 6.5MM X 35MM - [id number] SCREW BONE CANCELLOUS 6.5MM X 35MM NA DEPUY [id number] Right 1 Implanted STEM FEMORAL ACTIS DUOFIX SZ 3 - [id number] STEM FEMORAL ACTIS DUOFIX SZ 3 NA DEPUY [id number] Right 1Implanted HEAD FEMORAL BIOLOX DELTA SZ 36 +1.5MM - [id number] HEAD FEMORAL BIOLOX DELTA SZ 36 +1.5MM NA [id number] Right 1 Implanted PROCEDURE The patient was brought to the operating room and after satisfactory anesthesia was placed on the Colon table. The right lower extremity was then prepped and draped in the usual sterile fashion. VelProspectvisionputer assisted fluoroscopic hip navigation was utilized during [...] aid of image intensification. A 52 mm [place] cup was impacted into place in approximately [...] and found to have good length and synagogue of offset. It was felt that an [...] gm of tranexamic acid pre-op. A skilled administrative library assistant was necessary for this procedure for [...] Pt's sister Eloise will be her college football coach. Pt had her left hip replaced in March 2024 at [facility] Admission Diagnosis: Degenerative joint disease of right [...] balance POD0. Therapeutic Activity: Skilled therapeutic education, automobile travel club counselor and activity modification was providedto patient [...] concerns to note. Patient is appropriate for [facility] led physical therapy services. Barriers to Discharge [...] Time: 30 minutes Evaluation Moderate - Complexity (74014) Therapeutic Activities (83960) = 12 minutes Gait Training (42327) = 8 minutes * Brief Op Note - Kai Carrillo MD - 06/13/2024 10:53 AM CDT [facility] BRIEF OPERATIVE NOTE Pre-Op Diagnosis: Right hip degenerative joint disease M16.11, CPT: 80950 Post-Op Diagnosis: Same Procedure(s): Right direct anterior total hip arthroplasty Anesthesia Type: General Surgeons and Role: * Kai Carrillo MD - Primary * Maria Del Carmen Morocho PA-C - Assisting Estimated Blood Loss: 500 mL Specimen(s): No Specimens Collected Complications: None Implant(s): Implant Name Type Inv. Item Serial No. Warranty Coordinator Lot No. LRB No. Used Action APEX HOLE ELIMINATOR PS - [id number] APEX HOLE ELIMINATOR PS NA DEPUY [id number] Right 1 Implanted CUP ACET 52MM PINNACLE SECTOR II - [id number] CUP ACET 52MM PINNACLE SECTOR II NA DEPUY [id number] Right 1 Implanted SCREW BONE PINNACLE CANCELLOUS 6.5X25MM - [id number] SCREW BONE PINNACLE CANCELLOUS 6.5X25MM NA DEPUY [id number] Right 1 Implanted LINER ACET ALTRX 36MM X 52MM NEUTRAL - [id number] LINER ACET ALTRX 36MM X 52MM NEUTRAL NA DEPUY [id number] Right 1 Implanted SCREW BONE CANCELLOUS 6.5MM X 35MM - [id number] SCREW BONE CANCELLOUS 6.5MM X 35MM NA DEPUY [id number] Right 1 Implanted STEM FEMORAL ACTIS DUOFIX SZ 3 - [id number] STEM FEMORAL ACTIS DUOFIX SZ 3 NA DEPUY [id number] Right 1Implanted HEAD FEMORAL BIOLOX DELTA SZ 36 +1.5MM - [id number] HEAD FEMORAL BIOLOX DELTA SZ 36 +1.5MM NA [id number] Right 1 Implanted Plan: DC home POD1 [...] on 07/02/24 at 2:00 PM at the [place] office Patient's goals after surgery: less pain Patient's concerns with upcoming surgery: none H&P Patient's pre-operative history and physical with their primary care physician was reviewed. From that, the following should be noted: -HTN, CAD, psoriatic arthritis (holding humira currently), untreated CADENCE (AHI 13 from 2016), GERD, anxiety -s/p LTHA 03/20/24 at [facility]. No complications per patient. [...] Prior to Admission Medications:*was not approved for [facility] Patient will continue the following medications: atorvastatin, [...] time of discharge between 9:00AM-12:00PM with their motorcoach driver arriving by 8:00 AM International Representative: Eloise saleem Discharge location: home Anticipated Home Health Services: None Slider Assembler/Family member available after discharge: Niece will stay with patient first 2 nights (was notpresent for this discussion) Post-operative medication plan and education was discussed Patient's medication dosing and sig for the above medications to be determined post-operatively. In the event of a concern arising after surgery, the patient was provided with the following information: During business hours, call surgeon's manager of care, Marysol Ghotra at [phone]. After business hours, call the on-call provider at [phone]. [facility] was discussed. They [...] Devices Page 17/51 They understand their college football coach should bring their assistive device to [...] is not an outpatient pharmacy at the [facility] and they will need to strip picker their post-operative medications at a pharmacy [...] of surgery after arriving at the [facility] [place]. Avoiding a Delayed Surgery Page 10 I gave them this reference to use between now and surgery to avoid their surgery being delayed or cancelled. Adamaris Villa PA-C [facility] documented in this encounter [...] - 16.0 g/dl 06/14/2024 7:31 AM CDT [facility] Blood BLOOD SPECIMEN / Unknown Venipuncture / Unknown 06/14/2024 7:17 AM CDT 06/14/2024 7:27 AM CDT us Kai Carrillo MD [facility] HEMATOLOGY ORDERABLES Final Result [facility] [address] [place] [address] * XR HIP RIGHT 2 OR 3 [...] 0814 (Given - Provider: Klever Coleman APRN, FRONT END ENGINEER) ceFAZolin (ANCEF) 2 g in dextrose 4% [...] Until 06/14/24 at 1502, Respiratory Depression, Other, OVEN TENDER BAGELS depression ondansetron (Zofran ODT) disintegrating tablet 4 [...] 06/13/2024 documented in this encounter Care Teams Steward/Stewardess Third Class Relationship Specialty Start Date End Date Elsewhere, Pcp PCP - General 06/10/24 documented as of this encounter
--- OUTSIDE RECORDS SUMMARY | 2024-08-06 13:27 | XMS_ITS | Referral Summary ---
Author Organization [place] Address [address] [facility] [place] [address] Care Team Providers Care Air And Water Tester Name Role Phone Yamila Dave PA-C Primary Care Provider Chadwick Jensen NP Unavailable [phone] Rahul Ford MD Unavailable Un available Rahul [...] 40 MG tabletIndications :Coronary artery disease involving kasaan coronary artery of kasaan heart without angina pectoris,Palpitat ions Take 1 tablet (40 mg) by mouth daily 90 tablet 3 2 Active losartan (COZAAR) 100 MG tabletIndications :Benign essential hypertension Take 1 tablet (100 mg) by mouth daily 90 tablet 3 Active metoprolol tartrate (LOPRESSOR) 25 MG tabletIndications :Coronary artery disease involving kas[place] coronary artery of kasaan heart without angina pectoris,Palpitat ions Take 1 [...] PM CDT 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 Gender Identity Female 04/22/2020 2:54 PM [...] on file Medical Devices Implanted Type Area Condominium Property Manager Device Identifier Shelf Expiration Date Model / Serial / Lot Imp [place] Hole Eliminator Hip Depuy Duraloc 1246-03-000 - [id number] Implanted:Qty : 1 on 03/20/2024 by Kong Diop MD at [facility] Metallic Hardware/An chor Left: Hip [employer] [id number] 01/31/2034 [id number] / / [id number] Imp Scr Bone Can Jose 6.5x35mm 1217-35-500 - [id number] Implanted:Qty : 1 on 03/20/2024 by Kong Diop MD at [facility] Metallic Hardware/An chor Left: Hip [employer] [id number] 10/31/2032 [id number] / / [id number] Imp Scr Bone Can Jose 6.5x20mm 1217--500 - [id number] Implanted:Qty : 1 on 03/20/2024 by Kong Diop MD at [facility] Metallic Hardware/An chor Left: Hip [employer] [id number] 12/31/2033 [id number] / / [id number] Imp Cup Jose Kipling 52mm 1217-22-052 - [id number] Implanted:Qty : 1 on 03/20/2024 by Kong Diop MD at [facility] Total Joint Component/I nsert Left: Hip [employer] [id number] 12/31/2033 [id number] / / [id number] Imp Insert Hip Depuy Kipling Altrx [id number] 1221-36-05 - [id number] Implanted:Qty : 1 on 03/20/2024 by Kong Diop MD at [facility] Total Joint Component/I nsert Left: Hip [employer] [id number] 01/01/2028 1221-36-052 / / [id number] Imp Stem Fem Depuy Actis Collar Hi-Offset Sz 2mm - [id number] Implanted:Qty : 1 on 03/20/2024 by Kong Diop MD at [facility] Total Joint Component/I nsert Left: Hip [employer] [id number] / / Imp Head Femoral Depuy Ceramic 36mm +1.5mm 1365-36-310 - [id number] Implanted:Qty : 1 on 03/20/2024 by Kong Diop MD at [facility] Total Joint Component/I nsert Left: Hip [employer] [id number] 12/31/2028 [id number] / / [id number] Procedures Procedure Name Priority Date/Time Associated Diagnosis Comments GLUCOSE STAT 03/20/2024 7:11 AM CDT LIPID REFLEX TO DIRECT LDL PANEL Routine 01/29/2024 8:56 AM CDT Coronary artery disease involving kasaan coronary artery of kasaan heart without angina pectoris Benign essential hypertension Palpitations BASIC METABOLIC PANEL Routine 01/29/2024 8:56 AM CDT Coronary artery disease involving kas[place] coronary artery of kasaan heart without angina pectoris Benign essential hypertension [...] BLOOD ORDERABLES Fin al Result LABORATORY [facility] Acute Care Lab [address] 1st floor, Room [address] [place] [address], [place] [phone] * (ABNORMAL) Lipid panel reflex to direct [...] LAB - BLOOD ORDERABLES Final Result LABORATORY [facility] [address] [facility], [address] [place] [address] Acute Care Lab [address] Lab (1st floor, no room number) [place] [address] * Basic metabolic panel (01/29/2024 8:56 AM CDT) [facility] Sodium 141 135 - 145 mmol/L [...] - BLOOD ORDERABLES Final Result [facility] LABORATORY [facility] Acute Care Lab [address] Lab (1st floor, no room number) [place] [address] * Mammogram - HIM Scan (08/24/2020) Negative Anatomical Region Laterality Modality Other us Provider Outside IMG MAMMOGRAPHY ORDERABLES Danyelle l Result from Last 3 Months or Most Recently Relevant to Health Maintenance Insurance 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
--- OUTSIDE RECORDS SUMMARY | 2024-08-06 13:27 | XMS_ITS | Encounter Summary ---
Author Organization [place] Address [address] [facility] 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 Gender Identity Female 04/22/2020 2:54 PM CDT Sexual Orientation Straight 04/22/2020 2: 54 PM CDT documented as of this encounter Plan of Treatment Not on file documented as of this encounter Visit Diagnoses Not on filedocumented in this encounter Care Teams Streetcar Motorman Relationship Specialty Start Date End Date Yamila Dave PA-C [facility] [address] [place] [address] PCP - General Physician Bioanalyst 04/14/20 Chadwick Jensen NP [address] [place] [address] Nurse Practitioner Cardiovascular Disease 11/15/22 Rahul Ford MD MD Cardiovascular Disease 01/24/24 Rahul Ford MD Assigned Heart and Vascular Provider 02/24/24 documented as of this encounter
--- OUTSIDE RECORDS SUMMARY | 2024-08-06 13:27 | XMS_ITS | Encounter Summary ---
Author Organization [place] Address [facility] 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 Gender Identity Female 04/22/2020 2:54 PM CDT Sexual Orientation Straight 04/22/2020 2: 54 PM CDT documented as of this encounter Plan of Treatment Not on file documented as of this encounter Visit Diagnoses Not on filedocumented in this encounter Care Teams Manifest Clerk Relationship Specialty Start Date End Date Yamila Dave PA-C [facility] [address] [place] [address] PCP - General Physician Website Optimization Strategist 04/14/20 Alo Steel PA-C [address] [place] [address] Assigned Heart and Vascular Provider 11/17/20 01/22/21 Rahul Ford MD [address] [place] [address] Assigned Heart and Vascular Provider 01/23/21 03/02/23 Chadwick Jensen NP [address] [place] [address] Nurse Practitioner Cardiovascular Disease 11/15/22 Chadwick Jensen NP [address] [place] [address] Assigned Heart and Vascular Provider 03/03/23 08/17/23 Chadwick Jensen NP [address] [place] [address] Assigned Heart and Vascular Provider 08/25/23 02/23/24 Rahul Ford MD Assigned Heart and Vascular Provider 08/18/23 08/24/23 Rauhl Ford MD MD Cardiovascular Disease 01/24/24 Rahul Ford MD Assigned Heart and Vascular Provider 02/24/24 documented as of this encounter
--- OUTSIDE RECORDS SUMMARY | 2024-08-06 13:27 | XMS_ITS | Encounter Summary ---
Author Organization [place] Address [address] [facility] [place] [address] Care Team Providers Care Dog Daycare Provider Name Role Phone Yamila Dave PA-C Primary Care Provider Chadwick Jensen ADVISORY APPLICATION DEVELOPER Unavailable [phone] Chadwick Jensen NP Unavailable [phone] Rahul Ford MD Unavailable Un available Rahul Ford MD Unavailable Un available Encounter Details Date Type Department Care Team (Late st Contact Info) Description 01/07/2024 External Order Results [facility] [address] [place] [address] Outside, Provider Social History Tobacco Use Types [...] PM CDT 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 Provider Outside LAB - BLOOD ORDERABLES Edited Nebula BREEZE PFT NON-INTERFACED (ONBASE SCANS) * (ABNORMAL) CRP inflammation (01/07/2024 2:50 PM CDT) Pathologist [facility] CRP Inflammation (External) <0.5(L) 0.5 - 1.0 mg/dL NON-INTERFACE D (ONBASE SCANS) Blood BLOOD SPECIMEN / Unknown 01/07/2024 2:50 PM CDT Narrative BREEZE PFT - 01/07/2024 2:50 PM CDT Verified by Carmella Munroe on 01/25/2024. Provider Outside LAB - BLOOD ORDERABLES Edited R Kannact BREEZE PFT NON-INTERFACED (ONBASE SCANS) * TSH (01/07/2024 2:50 PM CDT) Pathologist [facility] TSH (External) 2.290 0.270 - 4.200 uIU/mL [...] filedocumented in this encounter Care Teams Dog Daycare Provider Relationship Specialty Start Date End Date Yamila Dave PA-C [facility] [address] [place] [address] PCP - General Physician Financial Director 04/14/20 Chadwick Jensen NP [address] [address] Nurse Practitioner Cardiovascular Disease 11/15/22 Chadwick Jensen NP [address] [address] Assigned Heart and Vascular Provider 08/25/23 02/23/24 Rahul Ford MD Cardiovascular Disease 01/24/24 Rahul Ford MD Assigned Heart and Vascular Provider 02/24/24 documented as of this encounter
--- OUTSIDE RECORDS SUMMARY | 2024-08-06 13:27 | XMS_ITS | Encounter Summary ---
Author Organization [place] Address [address] [facility] 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 Gender Identity Female 04/22/2020 2:54 PM CDT Sexual Orientation Straight 04/22/2020 2: 54 PM CDT documented as of this encounter Plan of Treatment Not on file documented as of this encounter Visit Diagnoses Not on filedocumented in this encounter Care Teams Sidehand Relationship Specialty Start Date End Date Yamila Dave PA-C [facility] [address] [place] [address] PCP - General Physician Vice President Talent Management 04/14/20 Chadwick Jensen NP [address] [place] [address] Nurse Practitioner Cardiovascular Disease 11/15/22 Rahul Ford MD MD Cardiovascular Disease 01/24/24 Rahul Ford MD Assigned Heart and Vascular Provider 02/24/24 documented as of this encounter
--- OUTSIDE RECORDS SUMMARY | 2024-08-06 13:27 | XMS_ITS | Referral Summary ---
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 Answer Entry Date Author No 01/17/2018 8:00 AM CDT Ruth AnnDorie oliveros Plan of Treatment Not on file Procedures Procedure Name Priority Date/Time Associated Diagnosis Comments RANDA SCREEN MAMMOGRAM, DIGITAL (OQV=[id number]) Routine 01/31/2018 5:10 PM CDT Encounter for screening mammogram for malignant neoplasm of breast from Last 3 Months or Most Recently Relevant to Health Maintenance Results * RANDA SCREEN MAMMOGRAM, DIGITAL (LGE=[id number]) (01/31/2018 5:10 PM CDT) Anatomical Region Laterality Modality Breast Bilateral Mammography 02/01/2018 3:21 PM CDT Narrative 02/01/2018 3:24 PM CDT DATE OF SERVICE: 01.31.2018 BILATERAL SCREENING MAMMOGRAM WITH CAD WITH TOMOSYNTHESIS CLINICAL INDICATION: Screening mammogram. AGE: 57 years. COMPARISON: 2016, 2015, 2014, 2013, 2012 TECHNIQUE: Bilateral screening digital mammographic views with tomosynthesis. Images were checked with the [employer] [place] CAD system. FINDINGS: The breasts are heterogeneously [...] Most Recently Relevant to Health Maintenance Insurance [employer] (Work) [address] [id number] (Work) [address] [id number] (Work) [address] [id number] Care Teams Ward Helper Relationship Specialty Start Date End Date Mildred Drake MD [address] [place] [id number] PCP - General Family Practice 10/08/12
--- OUTSIDE RECORDS SUMMARY | 2024-08-06 13:27 | XMS_ITS | Encounter Summary ---
Author Organization [facility] Address [address] [address] Phone Care Team Providers Care Firestop/Containment Worker Name Role Phone Elsewhere, Pcp Primary Care Provider Unavailabl e Reason for Visit * Auth/Cert (Routine) Specialty Diagnoses / Procedures Referred By Vickie zuniga Referred To Contact Diagnoses Degenerative joint disease of right hip M16.11 Procedures TOTAL HIP REPLACEMENT Right total hip arthroplasty direct anterior approach Kong Alvares MD [facility] [address] [address] Phone: tel: fax: Referral ID Status Reason Start Date Expiration Date Visits Re quested Visits Authorized [id number] 1 1 Encounter Details Date Type Department Care Team (Late st Contact Info) Description 06/13/2024 8:14 AM CDT Anesthesia Event [facility] OR [address] [place] [phone] Scotty Bryan MD [address] [address] Akin Chase MD [address] [address] Anesthesia Record Procedure Summary Procedure Name Responsible Anesthesiologist Anesthesia Start Time Anesthesia Stop Time Right total hip arthroplasty direct anterior approach (Right: Hip) Scotty Bryan MD 06/13/24 0814 06/13/24 1055 Events Date Time Event Comment 06/13/2024 0711 AN Equip Check 0726 0728 HI TEACHER Ready 0814 An Start The patient was reevaluated immediately prior to initiation of anesthesia. 0814 An Start Data 0818 An Induction 0821 An Intubation 0825 Anesthesia Ready 0902 Quick Note start 1047 Emergence Started 1048 An Extubation 1048 Start Supplemental O2 1049 an stop data 1052 Intraop Signature Intraop erative Record electronically signed by Klever Coleman APRN, HI TEACHER 1055 An Stop Report given to the receiving RN. No apparent anesthesia complications at this time. Electronically signed by Klever Coleman APRN, HI TEACHER 1055 Intraop Signature Intraop erative Record electronically [...] by mask (1); Video laryngoscopy; ETT; 7; ([facility]); 3; 2a; 1; 22 cm 06/13/24 08 by Klever Coleman APRN, CRNA 06/13/24 1048 by Klever Coleman APRN, CRNA documented in this encounter Social History Tobacco Use Types Packs/Day Years Used Date Smoking Tobacco: Never Passive Smoke Exposure: Past Smokeless Tobacco: Never Alcohol Use Standard Drinks/Week Comments Yes 0 (1 standard drink = 0.6 oz pur e alcohol) monthly [facility] Utilities Answer Date Recorded In the past 12 months has th e [employer], gas, oil, or water [employer] threatened to shut off services in your [...] any time in the past 12 [facility], were you homeless or living in a residential (including now)? No 06/13/2024 EH IP Custom IPV Answer Date Recorded Do you feel UNSAFE in any of your personal relationships with your family members or any other acquaintances? 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
--- OUTSIDE RECORDS SUMMARY | 2024-08-06 13:27 | XMS_ITS | Clinical Summary ---
Author Organization [place] Address [address] [facility] [place] [address] Care Team Providers Care Statistical Secretary Name Role Phone Yamila Dave PA-C Primary Care Provider Chadwick Jensen NP Unavailable [phone] Rahul Ford MD Unavailable Un available Rahul [...] 40 MG tabletIndications :Coronary artery disease involving [place] coronary artery of [place] heart without angina pectoris,Palpitat ions Take 1 tablet (40 mg) by mouth daily 90 tablet 3 2 Active losartan (COZAAR) 100 MG tabletIndications :Benign essential hypertension Take 1 tablet (100 mg) by mouth daily 90 tablet 3 Active metoprolol tartrate (LOPRESSOR) 25 MG tabletIndications :Coronary artery disease involving [place] coronary artery of [place] heart without angina pectoris,Palpitat ions Take 1 [...] PM CDT 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 Gender Identity Female 04/22/2020 2:54 PM CDT [...] this topic Medical Devices Implanted Type Area Gas Leak Inspector Helper Device Identifier Shelf Expiration Date Model / Serial / Lot Imp [place] Hole Eliminator Hip Depuy Duraloc 1246-03-000 - [id number] Implanted:Qty : 1 on 03/20/2024 by Kong Diop MD at [facility] Metallic Hardware/An chor Left: Hip [employer] [id number] 01/31/2034 [id number] / / [id number] Imp Scr Bone Can Jose 6.5x35mm 1217-35-500 - [id number] Implanted:Qty : 1 on 03/20/2024 by Kong Diop MD at [facility] Metallic Hardware/An chor Left: Hip [employer] [id number] 10/31/2032 [id number] / / [id number] Imp Scr Bone Can Jose 6.5x20mm 1217--500 - [id number] Implanted:Qty : 1 on 03/20/2024 by Kong Diop MD at [facility] Metallic Hardware/An chor Left: Hip [employer] [id number] 12/31/2033 [id number] / / [id number] Imp Cup Jose Brutus 52mm 1217-22-052 - [id number] Implanted:Qty : 1 on 03/20/2024 by Kong Diop MD at [facility] Total Joint Component/I nsert Left: Hip [employer] [id number] 12/31/2033 [id number] / / [id number] Insert Hip Depuy Brutus Altrx 64w02ml 1221-36-052 - [id number] Implanted:Qty : 1 on 03/20/2024 by Kong Diop MD at [facility] Total Joint Component/I nsert Left: Hip [employer] [id number] 01/01/2028 1221-36-052 / / [id number] Imp Stem Fem Depuy Actis Collar Hi-Offset Sz 2mm 101020 - [id number] Implanted:Qty : 1 on 03/20/2024 by Kong Diop MD at [facility] Total Joint Component/I nsert Left: Hip [employer] [id number] / / Imp Head Femoral Depuy Ceramic 36mm +1.5mm 1365-36-310 - [id number] Implanted:Qty : 1 on 03/20/2024 by Kong Diop MD at [facility] Total Joint Component/I nsert Left: Hip [employer] [id number] 12/31/2028 [id number] / / [id number] Procedures Procedure Name Priority Date/Time Associated Diagnosis Comments GLUCOSE STAT 03/20/2024 7:11 AM CDT LIPID REFLEX TO DIRECT LDL PANEL Routine 01/29/2024 8:56 AM CDT Coronary artery disease involving [place] coronary artery of [place] heart without angina pectoris Benign essential hypertension Palpitations BASIC METABOLIC PANEL Routine 01/29/2024 8:56 AM CDT Coronary artery disease involving [place] coronary artery of [place] heart without angina pectoris Benign essential hypertension [...] al Result LABORATORY [facility] Acute Care Lab [address] 1[address] floor, [address] [place] [address], [place] [phone] * (ABNORMAL) Lipid panel reflex to direct [...] - BLOOD ORDERABLES Final Result [facility] [place] [facility] [address] [facility], [address] [place] [address] LABORATORY [facility] Acute Care Lab [address] [facility] Lab (1st floor, no room number) [place] [address] * Basic metabolic panel (01/29/2024 8:56 AM CDT) [facility] Sodium 141 135 - 145 mmol/L [...] LAB - BLOOD ORDERABLES Final Result LABORATORY [facility] Acute Care Lab [address] Lab (1st floor, no room number) [place] [address], [place] * Mammogram - HIM Scan (08/24/2020) Negative Anatomical Region Laterality Modality Other us Provider Outside IMG MAMMOGRAPHY ORDERABLES Danyelle l Result from Last 3 Months or Most Recently Relevant to Health Maintenance Insurance [facility] Advance Directives For more information, please contact: [phone] Documents on File Type Date Recorded Patient Limb Driver Expl anation Advance Directives and Living Will [...] Song Son Health Care Agent Care Teams Statistical Secretary Relationship Specialty Start Date End Date Yamila Dave PA-C [facility] [address] [place] [address] PCP - General Physician Rectification Printer 04/14/20 Chadwick Jensen NP [address] [address] Nurse Practitioner Cardiovascular Disease 11/15/22 Rahul Ford MD Cardiovascular Disease 01/24/24 Rahul Ford MD Assigned Heart and Vascular Provider 02/24/24
--- OUTSIDE RECORDS SUMMARY | 2024-08-06 13:27 | XMS_ITS | Encounter Summary ---
Author Organization [place] Address [address] [facility] [place] [address] Care Team Providers Care Derrick Barge Operator Name Role Phone Yamila Dave PA-C Primary Care Provider Rahul Ford MD Unavailable Un available Chadwick Jensen NP Unavailable [phone] Chadwick Jensen NP Unavailable [phone] Chadwick Jensen NP Unavailable [phone] Rahul Ford MD Unavailable Un available Rahul Ford MD Unavailable Un available Rahul Ford MD Unavailable Un available Encounter Details Date Type Department Care Team (Late st Contact Info) Description 04/19/2022 External Order Results [facility] [address] [place] [address] Outside, Provider Social History Tobacco Use Types Packs/Day Years Used Date Smoking Tobacco: Never Smokeless Tobacco: Never Alcohol Use Standard Drinks/Week Comments Yes 0 (1 standard drink = 0.6 oz pur e alcohol) rare occasion Comments No Sex and Gender Information Value Date Recorded Sex Assigned at Female 04/22/2020 2:54 PM CDT 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 us Provider Outside LAB - BLOOD ORDERABLES Edited R esult - Final ABELARDO PFT NON-INTERFACED (ONBASE SCANS) * CBC with platelets (04/19/2022 12:00 PM CDT) Pathologist [facility] Hematocrit (External) 37.9 33.0 - 51.0 % [...] Outside LAB - BLOOD ORDERABLES Edited [employer] [facility] Performing Organization Address [facility] Co de Phone Number BREEZE PFT NON-INTERFACED [...] Provider Outside LAB - BLOOD ORDERABLES Edited [facility] Performing Organization Address City/[facility]/ZIP Co de Phone Number BREEZE PFT NON-INTERFACED (ONBASE SCANS) documented in this encounter Visit Diagnoses Not on filedocumented in this encounter Care Teams Derrick Barge Operator Relationship Specialty Start Date End Date Yamila Dave PA-C [facility] [address] [place] [address] PCP - General Physician Human Resource Advisor 04/14/20 Rahul Ford MD [facility] [address] [place] [address] Assigned Heart and Vascular Provider 01/23/21 03/02/23 Chadwick Jensen NP [address] [address] Nurse Practitioner Cardiovascular Disease 11/15/22 Chadwick Jensen NP [address] [address] Assigned Heart and Vascular Provider 03/03/23 08/17/23 Chadwick Jensen NP [address] [address] Assigned Heart and Vascular Provider 08/25/23 02/23/24 Rahul Ford MD Assigned Heart and Vascular Provider 08/18/23 08/24/23 Rahul Ford MD MD Cardiovascular Disease 01/24/24 Rahul Ford MD Assigned Heart and Vascular Provider 02/24/24 documented as of this encounter
--- OUTSIDE RECORDS SUMMARY | 2024-08-06 13:27 | XMS_ITS | Encounter Summary ---
Author Organization [place] Address [address] [facility] [place] [address] Care Team Providers Care Administrative Supervisor Name Role Phone Yamila Dave PA-C Primary Care Provider Rahul Ford MD Unavailable Un available Steel, Tressakalina Graves PA-C Unavailable [phone] Rahul Ford MD Unavailable Un available Chadwick Jensen TIMBER TREATING TANK OPERATOR Unavailable [phone] Chadwick Jensen TIMBER TREATING TANK OPERATOR Unavailable [phone] Chadwick Jensen TIMBER TREATING TANK OPERATOR Unavailable [phone] Rahul Ford MD Unavailable Un available Rahul Ford MD Unavailable Un available Rahul Ford MD Unavailable Un available Encounter Details Date Type Department Care Team (Late st Contact Info) Description 09/23/2020 [facility] [place] [facility] [id number] [place] [address] [address] [place] [address] Rahul Ford MD Social History Tobacco Use Types Packs/Day Years Used Date Smoking Tobacco: Never Smokeless Tobacco: Never Alcohol Use Standard Drinks/Week Comments Yes 0 (1 standard drink = 0.6 oz pur e alcohol) rare occasion Comments Unknown Sex and Gender Information Value Date Recorded Sex Assigned at Female 04/22/2020 2:54 PM CDT 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 No / Unsure 09/20/2020 7:44 AM MANAGER COLLECTION documented as of this encounter Plan of Treatment Not on file documented as of this encounter Visit Diagnoses Not on filedocumented in this encounter Care Teams Administrative Supervisor Relationship Specialty Start Date End Date Yamila Dave PA-C [facility] [address] [place] [address] PCP - General Physician Digital Computer Operator 04/14/20 Rahul Ford MD Assigned Heart and Vascular Provider 06/25/20 11/16/20 Alo Steel PA-C [address] [address] Assigned Heart and Vascular Provider 11/17/20 01/22/21 Rahul Ford MD [address] [address] Assigned Heart and Vascular Provider 01/23/21 03/02/23 Chadwick Jensen NP [address] [address] Nurse Practitioner Cardiovascular Disease 11/15/22 Chadwick Jensen NP [address] [address] Assigned Heart and Vascular Provider 03/03/23 08/17/23 Chadwick Jensen NP [address] [address] Assigned Heart and Vascular Provider 08/25/23 02/23/24 Rahul Ford MD Assigned Heart and Vascular Provider 08/18/23 08/24/23 Rahul Ford MD MD Cardiovascular Disease 01/24/24 Rahul Ford MD Assigned Heart and Vascular Provider 02/24/24 documented as of this encounter
--- OUTSIDE RECORDS SUMMARY | 2024-08-06 13:27 | XMS_ITS | Encounter Summary ---
Author Organization [place] Address [facility] 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 [address], [place] [address] PCP - General Physician Silica Dry Press Helper 04/14/20 Alo Steel PA-C [address] [place], [place] [address] Assigned Heart and Vascular Provider 11/17/20 01/22/21 Rahul Ford MD [address] [place] [address] Assigned Heart and Vascular Provider 01/23/21 03/02/23 Chadwick Jensen NP [address] [place] [address] Nurse Practitioner Cardiovascular Disease 11/15/22 Chadwick Jensen NP [address] [place] [address] Assigned Heart and Vascular Provider 03/03/23 08/17/23 Chadwick Jensen NP [address] [place] [address] Assigned Heart and Vascular Provider 08/25/23 02/23/24 Rahul Ford MD Assigned Heart and Vascular Provider 08/18/23 08/24/23 Rahul Ford MD MD Cardiovascular Disease 01/24/24 Rahul Ford MD Assigned Heart and Vascular Provider 02/24/24 documented as of this encounter
--- OUTSIDE RECORDS SUMMARY | 2024-08-06 13:27 | XMS_ITS | Clinical Summary ---
Author Organization [facility] Address [address] [place] [address] Care Team Providers Care Soil Science Teacher Name Role Phone Mildred Drake MD Primary [...] Next Due >=3 YRS QUAD MULTIDOSE VIAL (26338) FLU CLINIC 05/31/2015 Influenza 06/03/2017, 6,06/09/2014, 013,07/04/2012,05/06/2009,07/01/2007 TDAP 05/06/2009 Family History Medical History Relation Comments Cancer Father prostate Heart Disorder Father AAA. 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 Gender Identity Not on file Sexual Orientation [...] Associated Diagnosis Comments RANDA SCREEN MAMMOGRAM, DIGITAL ([id number]) Routine 01/31/2018 5:10 PM CDT Encounter for screening mammogram for malignant neoplasm of breast from Last 3 Months or Most Recently Relevant to Health Maintenance Results * RANDA SCREEN MAMMOGRAM, DIGITAL (DAU=[id number]) (01/31/2018 5:10 PM CDT) Anatomical Region Laterality Modality Breast Bilateral Mammography 02/01/2018 3:21 PM CDT Narrative 02/01/2018 3:24 PM CDT DATE OF SERVICE: 01.31.2018 BILATERAL SCREENING MAMMOGRAM WITH CAD WITH TOMOSYNTHESIS CLINICAL INDICATION: Screening mammogram. AGE: 57 years. COMPARISON: 2016, 2015, 2014, 2013, 2012 TECHNIQUE: Bilateral screening digital mammographic views with tomosynthesis. Images were checked with the [employer] CAD system. FINDINGS: The breasts are heterogeneously [...] Most Recently Relevant to Health Maintenance Insurance [employer] (Work) [address] [place] [address] (Work) [address] [place] [address] (Work) [address] [place] [address] Care Teams Soil Science Teacher Relationship Specialty Start Date End Date Mildred Drake MD [address] [facility] [place] [id number] PCP - General Family Practice 10/08/12
== END 2024-08-06 13:25 | disposition home or self-care (01) ==
LOC: LKVREF 13:25
PROVIDERS: PCP Physician Assistant Medical; Visit Provider Physician Assistant Medical
DX: R32 Unspecified urinary incontinence (principal)
CPT/HCPCS: 87086

== ENCOUNTER 2024-11-17 13:50 | Outpatient (CLI) | payer BC, SELFPAY ==
--- NOTE | 2024-11-17 14:00 | CRLHL7_ITS ---
For Patients: As a result of the Cures Act, medical imaging exams and procedure reports are released immediately into your electronic medical record. You may view this report before your referring provider. If you have questions, please contact your health care provider. BILATERAL SCREENING MAMMOGRAM WITH COMPUTER-AIDED DETECTION AND TOMOSYNTHESIS TECHNIQUE: CC and MLO views were obtained. These mammographic images have been obtained using full-field digital technique. These mammographic images were interpreted with the benefit of computer-aided detection. Breast Tomosynthesis was used in this interpretation. COMPARISON FILM: 10/05/23, 09/12/22, 08/24/20. FINDINGS: There are scattered areas of fibroglandular density IMPRESSION: There is no radiographic evidence for malignancy. ASSESSMENT: BI-RADS Category 1: Negative RECOMMENDATION: Routine screening mammogram in 1 year. A lay language report of this examination will be provided to the patient. Scotty Felder M.D. Diagnostic Radiologist [email or web address] Transcribed: 3:21 p.vianey villarreal/Dictated by: Scotty Felder MD @ 11/18/2024 8:53:00 AM (Electronically Signed)
== END 2024-11-17 13:51 | disposition home or self-care (01) ==
LOC: MAMMO 13:50
PROVIDERS: PCP Physician Assistant Medical; Visit Provider Physician Assistant Medical
DX: Z12.31 Encounter for screening mammogram for malignant neoplasm of breast (principal)
CPT/HCPCS: 77063; 77067

== ENCOUNTER 2025-05-25 13:41 | Outpatient (CLI) | payer BC, SELFPAY ==
--- NOTE | 2025-05-25 14:00 | CRLHL7_ITS ---
For Patients: As a result of the Century Cures Act, medical imaging exams and procedure reports are released immediately into your electronic medical record. You may view this report before your referring provider. If you have questions, please contact your health care provider. INDICATION: Right ear pain. COMPARISON: None. TECHNIQUE: Noncontrast CT of the nondenominational bones. FINDINGS: Right: The right mastoid air cells and mastoid antrum are clear. Middle ear cavity is clear. Normal articulation of the ossicular chain. No opacification of sinus tympani. Normal tympanic membrane. The external auditory canal is patent. Tegmen tympani is intact. Normal mineralization of the otic capsule. Normal cochlea and vestibule. Normal internal auditory canal. Left: The left mastoid air cells and mastoid antrum are clear. Middle ear cavity is clear. Normal articulation of the ossicular chain. No opacification of sinus tympani. Normal tympanic membrane. The external auditory canal is patent. Tegmen tympani is intact. Normal mineralization of the otic capsule. Normal cochlea and vestibule. Normal internal auditory canal. Other: Mucosal thickening and opacification scattered ethmoid air cells. Remaining visualized paranasal sinuses are clear. Visualized orbits are unremarkable. IMPRESSION: 1. Normal bilateral temporal bone structures. 2. Mucosal thickening opacification of scattered ethmoid air cells. Please note that all CT scans at this facility use dose modulation, iterative reconstruction, and/or weight-based dosing when appropriate to reduce radiation dose to as low as reasonably achievable. Dictated by Ja Treadwell MD @ 05/25/2025 3:17:15 PM (Electronically Signed)
== END 2025-05-25 13:42 | disposition home or self-care (01) ==
LOC: CT 13:42
PROVIDERS: PCP Physician Assistant Medical; Visit Provider Physician Assistant
DX: H92.01 Otalgia, right ear (principal)
CPT/HCPCS: 70480

== ENCOUNTER 2025-07-07 20:56 | Outpatient (CLI) | payer BC, SELFPAY ==
--- NOTE | 2025-07-14 11:57 | W.PM.SLEEP ---
Sleep Study Details Details Interpreting Provider: Carlie Date of Sleep Study: 07/07/25 Sleep Study Details: STUDY TYPE:? Hospital-based attended ? BMI:? 32.4 ORDERING PROVIDER:? Carlie INDICATION:? Concerns for sleep apnea ? SLEEP SUMMARY:? 304.5 minutes total sleep time RESPIRATORY SUMMARY:? AHI 14.8 per CMS guideline, 26.6 per rule 1A, supine AHI 85.3, nonsupine AHI 21.9. There was no supine REM sleep PERIODIC LIMB MOVEMENTS OF SLEEP:? None CARDIAC:? Awake 50 asleep 50 no arrhythmias noted IMPRESSION:? Mild to moderate obstructive sleep apnea with supine position dependency RECOMMENDATION: AutoSet CPAP pressure 5-17
== END 2025-07-07 20:57 | disposition home or self-care (01) ==
LOC: SLEEP 20:56
PROVIDERS: PCP Physician Assistant Medical; Visit Provider Otolaryngology
DX: G47.33 Obstructive sleep apnea (adult) (pediatric) (principal)
CPT/HCPCS: 95810

== ENCOUNTER 2025-08-06 09:02 | Outpatient (CLI) | payer BC, SELFPAY | END 2025-08-06 09:03 | disposition home or self-care (01) | PROVIDERS: PCP Physician Assistant Medical; Referring Provider Physician Assistant Medical; Visit Provider Physician Assistant Medical | DX: Z00.00 Encounter for general adult medical examination without abnormal findings (principal); E78.00 Pure hypercholesterolemia, unspecified; I10 Essential (primary) hypertension; E03.9 Hypothyroidism, unspecified; Z79.899 Other long term (current) drug therapy | CPT/HCPCS: 80053; 80061; 82306; 84443 ==

== ENCOUNTER 2025-08-10 12:00 | Outpatient (CLI) | payer BC, SELFPAY ==
[2025-08-14 09:13] LABS: HPV Source Cervix
[2025-08-14 14:03] LABS: Pap Test Digital Imaging Done
== END 2025-08-10 12:01 | disposition home or self-care (01) ==
PROVIDERS: PCP Physician Assistant Medical; Visit Provider Physician Assistant Medical
DX: Z00.00 Encounter for general adult medical examination without abnormal findings (principal)
CPT/HCPCS: 87624; 87625; 88141; 88142; 88175